=== PATIENT | female | born 1955 | race Caucasian/White ===

== ENCOUNTER → 2017-06-19 12:21 | Outpatient (CLI) | payer OTHER, SELFPAY ==
[2017-06-19 14:24] LABS: ALB/GLOB Ratio 0.7 RATIO (0.9-2.4); AST(SGOT) 15 U/L (15-37); Alanine Aminotransfer ALT/SGPT 16 U/L (13-56); Albumin, Serum 3.3 g/dL (3.2-5.0); Alkaline Phosphatase 109 U/L (45-117); Anion Gap 7 (5-15); BUN 15 mg/dL (7-18); BUN/Creat Ratio 15.7 RATIO (10-20); Calcium,Total 9.5 mg/dL (8.5-10.1); Chloride 102 mmol/L (98-107); Cholesterol 152 mg/dL (200); Creatinine, Serum 0.95 mg/dL (0.55-1.02); EST Glomerular Filtration Rate 63 mL/min (>60); Est Glom Filt Rate - Afr Amer 77 mL/min (>60); Globulin 4.6 g/dL (2.2-4.2); Glucose 83 mg/dL (74-106); Hemoglobin A1c 6.1 % (4.2-6.3); High Density Lipoprotein 28 mg/dL; Potassium 3.6 mmol/L (3.5-5.1); Protein, Total 7.9 g/dL (6.4-8.2); Sodium Level 137 mmol/L (136-145); Triglycerides 138 mg/dL; Very Low Density Lipoprotein 28 mg/dL (5-40)
== END ==
PROVIDERS: Family Provider Family Medicine; PCP Family Medicine; Visit Provider Family Medicine
DX: E11.9 Type 2 diabetes mellitus without complications (principal); E78.00 Pure hypercholesterolemia, unspecified; I10 Essential (primary) hypertension
CPT/HCPCS: 36415; 80053; 80061; 83036

== ENCOUNTER → 2017-07-02 06:08 | Outpatient (CLI) | payer OTHER, SELFPAY ==
--- NOTE | 2017-07-02 08:52 | STRESSREP ---
Stress Test Report Date: 07/02/2017 Procedure: Pharmacologic stress nuclear imaging study Indications: Chest pain; shortness of breath; CAD; CABG Consent: Per the patient Procedure: The patient underwent pharmacologic (Regadenoson) evaluation with a peak heart rate of 90 beats per minute (56 predicted maximal heart rate) and a peak blood pressure of 124/76 mmHg. The baseline ECG demonstrated normal sinus rhythm; poor R-wave progression. The peak pharmacologic ECG demonstrated no obvious ECG changes. There were no cardiac dysrhythmias pretest, during pharmacologic infusion, or recovery. There was no complaint of chest discomfort during pharmacologic infusion or recovery. The examination was discontinued secondary to completion of protocol. Impression: 1. Pharmacologic (Regadenoson) evaluation 2. Peak pharmacologic ECG with no obvious ECG changes. 3. There were no cardiac dysrhythmias pretest, during pharmacologic infusion, or recovery 4. Nuclear images pending Myocardial perfusion imaging study: Technique: The patient was injected with 14.6 millicuries of technetium 99m Cardiolite and subsequently rest SPECT Cardiolite nuclear imaging was obtained in the horizontal long, vertical long, and short axis views. The patient underwent pharmacologic (Regadenoson) evaluation with a peak heart rate of 90 beats per minute (56 % percent predicted maximal heart rate) and a peak blood pressure of 124/76 mmHg. The patient was injected with 45 millicuries of technetium 99m Cardiolite and subsequently stress SPECT Cardiolite nuclear imaging was obtained in the horizontal long, vertical long, and short axis views. A gated Cardiolite study at peak stress was obtained. Interpretation: Rest and stress SPECT Cardiolite nuclear imaging status post realignment, normalization, and attenuation correction demonstrate an area of diminished myocardial perfusion/tracer uptake in portions of the basal lateral segments which status post stress appears to be more prominent extending through the mid lateral segments. There is end systolic thickening and brightening. The gated Cardiolite study demonstrates myocardial thickening and inward wall motion. The reported LVEF is 50 %. Impression: 1. Test and stress SPECT Cardiolite nuclear imaging demonstrating myocardial perfusion changes appearing compatible with an area of previous myocardial injury/infarction involving the basal lateral segments with post stress myocardial perfusion changes being compatible with an area of stress-induced myocardial ischemia involving the mid lateral segments. 2. The gated Cardiolite study reports an LVEF of 50 %. This note was generated with Pathogenet[employer]ation software. It may contain incorrect words, spelling, and punctuation that were not noted in checking the note before signing.
== END ==
PROVIDERS: Family Provider Family Medicine; PCP Family Medicine; Visit Provider Family Medicine
DX: R07.9 Chest pain, unspecified (principal)
CPT/HCPCS: 78452; 93017; A9500; A4216; J2785

== ENCOUNTER → 2017-07-04 08:58 | Outpatient (CLI) | payer OTHER, SELFPAY ==
--- NOTE | 2017-07-04 09:11 | RAD_ITS ---
STUDY: X-RAY CHEST REASON FOR EXAM: Female, 61 years old. Open heart surgery. Chest pain. Preheart catheter. No chest complaints today. TECHNIQUE: PA and lateral views. COMPARISON: 06/22/2013. FINDINGS: Median sternotomy is unchanged. The lungs are clear and expanded. There is no demonstrated pleural abnormality. Normal size heart. Normal mediastinum and phu. Normal visualized pulmonary arteries. Normal visualized aortic arch and descending thoracic aorta. Normal visualized thoracic spine. Normal visualized ribs, clavicles, and shoulders. There is no demonstrated abnormality of the visualized soft tissue structures of the upper abdomen. RAD/Chest PA and Lateral IMPRESSION: 1. No acute cardiopulmonary pathology. 2. No interval changes when compared to 06/22/2013. Electronically Signed: Valdez Andersen MD at 9:43 EDT , Service support ,
[2017-07-04 09:44] LABS: Absolute Lymphocyte Count 2.33 X10^3/ul (0.83-4.51); Absolute Neutrophil Count 6.9 X10^3/uL (2.0-7.7); Eosinophil# 0.25 X10^3/uL; Eosinophils% 2.4 % (0-5); Hematocrit 54.1 % (37-47); Hemoglobin 17.7 g/dl (12.0-15.0); Lymphocyte # 2.33 X10^3/ul (4.0); Lymphocyte % 22.6 % (19-41); Mean Corp Hgb Conc 32.7 g/gl (32-36); Mean Corpuscular Volume 85.5 fL (81-99); Mean Platelet Vol. 11.4 fl (6.2-12.0); Monocyte# 0.75 X10^3/uL; Monocyte% 7.3 % (0-10); Neutrophil # 6.85 X10^3/uL (2.7-7.7); Neutrophil % 66.4 % (47-70); Platelet Count 238 K/mm3 (150-450); RBC Distribution Width CV 16.4 % (11.6-14.6); RBC Distribution Width SD 51.2 fl (35.1-43.9); Red Blood Count 6.33 M/mm3 (4.2-5.4); White Blood Count 10.3 K/mm3 (4.4-11.0)
[2017-07-04 09:45] LABS: POSITIVE COUNT NO; POSITIVE DIFFERENTIAL NO; POSITIVE MORPHOLOGY NO
[2017-07-04 09:57] LABS: International Normalized Ratio 1.1; Partial Thromboplast Time 29.1 Seconds (24.1-36.2); Prothrombin Time (Protime)PT. 13.9 SECONDS (11.7-14.9)
[2017-07-04 10:09] LABS: Anion Gap 6 (5-15); BUN 16 mg/dL (7-18); BUN/Creat Ratio 14.3 RATIO (10-20); Calcium,Total 9.7 mg/dL (8.5-10.1); Chloride 103 mmol/L (98-107); Creatinine, Serum 1.12 mg/dL (0.55-1.02); EST Glomerular Filtration Rate 53 mL/min (>60); Est Glom Filt Rate - Afr Amer 64 mL/min (>60); Glucose 105 mg/dL (74-106); Potassium 4.1 mmol/L (3.5-5.1); Sodium Level 135 mmol/L (136-145)
== END ==
PROVIDERS: Family Provider Family Medicine; PCP Family Medicine; Visit Provider Internal Medicine Cardiovascular Disease
DX: I25.10 Atherosclerotic heart disease of native coronary artery without angina pectoris (principal); Z95.1 Presence of aortocoronary bypass graft
CPT/HCPCS: 36415; 71046; 80048; 85025; 85610; 85730

== ENCOUNTER → 2017-07-08 06:45 | Outpatient (CLI) | payer OTHER, SELFPAY ==
[2017-07-07 14:27] VITALS: BMI 52.1
--- NOTE | 2017-07-08 06:50 | ECHOCS_ITS ---
Reason For Study: CAD Procedure This was a 2D Doppler, Color Flow transthoracic echocardiogram. The exam was of poor technical quality due to body habitus. The study was technically difficult. Contrast injection was performed. Exam performed in department. Left Ventricle Based upon the 2D echocardiographic and contrast enhanced images obtained there appears to be grossly normal left ventricular size, wall motion, and sytolic function. The estimated ejection fraction is 55 %. Unable to assess diastolic dysfunction due to arrhythmia. Right Ventricle Normal RV size. Normal systolic function. Atria The left atrium is mildly enlarged. Normal right atrium. No doppler evidence for ASD. Mitral Valve There is no mitral annular calcification. Normal mitral valve. Trivial mitral valve insufficiency. Tricuspid Valve Normal tricuspid valve. Mild tricuspid valve insufficiency. Unable to estimate RV systolic pressure/pulmonary artery pressure due to technically difficult study. Aortic Valve Trisinus/trileaflet aortic valve. Normal aortic valve. Pulmonic Valve The pulmonic valve is not well visualized. Great Vessels Normal sized aortic root. Pericardium/Pleural No pericardial effusion. Medication Diluted definity 4ml given slow IV push to enhance endocardial definition. MMode/2D Measurements & Calculations LVIDd: 4.9 cm IVSd: 1.1 cm Ao root diam: 2.6 cm LVIDs: 3.3 cm LVPWd: 0.85 cm LA dimension: 4.3 cm FS: 33.1 % Doppler Measurements & Calculations MV E max dheeraj: 83.5 cm/sec Lat Peak E' Dheeraj: 5.7 cm/sec Med Peak E' Dheeraj: 5.6 cm/sec MV A max dheeraj: 86.3 cm/sec E/E' lat: 14.5 E/E' med: 15.0 MV E/A: 0.97 Ao V2 max: 157.9 cm/sec LV V1 max: 115.7 cm/sec PA V2 max: 95.3 cm/sec Ao max P.0 mmHg LV V1 max P.4 mmHg Interpretation Summary The study was technically difficult. Contrast injection was performed. Based upon the 2D echocardiographic and contrast enhanced images obtained there appears to be grossly normal left ventricular size, wall motion, and sytolic function. The estimated ejection fraction is 55 %. The left atrium is mildly enlarged. Trivial mitral valve insufficiency. Mild tricuspid valve insufficiency. Unable to estimate RV systolic pressure/pulmonary artery pressure due to technically difficult study. Unable to assess diastolic dysfunction due to arrhythmia. Ordering Physician: José Menendez Referring Physician: Wai Mortensen M.D. Performed By: Sharon Elder RDCS
--- NOTE | 2017-07-08 11:11 | CRPHASE1 ---
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 Phase II Referral:: [facility] Phase I Charge:: Level I - Education Risk Factors/Lifestyle Smoking Status: Current every day smoker Second-Hand Smoke:: Yes Packs Smoked per Day: 1 Hx Hypertension: Yes - on meds Hx Diabetes Mellitus Type 2: No - but was treated in 2011 following CABG for 3 months Hx Dyslipidemia: Yes Hx Obesity: Yes Height: 1.57 m Weight:: 129.274 kg BMI: 52.1 Post-Menopausal: Yes Stress: Home/Family - Her parents recently with in 2 months and now this episode with her heart ETOH: No Caffeine: Yes Substance Abuse: No Family History: Family History (Last Reviewed 07/03/17 @ 15:04 by Marjan Mitchell) Father CAD (coronary artery disease) Cancer Mother CVA (cerebral vascular accident) Hypertension Family History: High Cholesterol, Heart Disease, Hypertension, Pulmonary Disease Past Cardiac Illness: Coronary Artery Disease, Myocardial Infarction, Coronary Artery Bypass Graft Phase I Education Given On:: [place], Nutrition, Antiplatelet medication, Smoking cessation Issues Affecting Care:: None Knowledge of Condition:: Yes Learning Preferences: Verbal Hospital Course Pain Description: Burning - but related to Acid reflex Cardiac Cath Date:: 07/08/17 Grafts:: 2012 Medical/Surgical History IN:: Yes - do not when Angina:: Yes - but related to acid reflex Pulmonary:: Yes COPD:: Yes ALEXX:: No Diabetes:: No Diabetes Type I:: No Diabetes Type II:: No - but was treated for 3 months in 2011 Hypertension:: Yes - on meds Dyslipidemia:: Yes Arrhythmias:: No Arthritis:: No GI:: Yes - acid reflex GERD:: Yes Cancer:: Yes Renal:: No Thyroid:: No Depression:: Yes - family deaths CABG: Yes PTCA:: No ICD:: No Pacemaker:: No Orthopedic:: No Discharge/Home/Social Eval Discharge Disposition: Home Marital Status: Patient Lives With::
[2017-07-08 11:20] VITALS: BMI 52.1
--- NOTE | 2017-07-08 11:20 | CRPHASE1_ITS ---
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 Phase II Referral:: [facility] Phase I Charge:: Level I - Education Risk Factors/Lifestyle Smoking Status: Current every day smoker Second-Hand Smoke:: Yes Packs Smoked per Day: 1 Hx Hypertension: Yes - on meds Hx Diabetes Mellitus Type 2: No - but was treated in 2011 following CABG for 3 months Hx Dyslipidemia: Yes Hx Obesity: Yes Height: 1.57 m Weight:: 129.274 kg BMI: 52.1 Post-Menopausal: Yes Stress: Home/Family - Her parents recently with in 2 months and now this episode with her heart ETOH: No Caffeine: Yes Substance Abuse: No Family History: Family History (Last Reviewed 07/03/17 @ 15:04 by Marjan Mitchell) Father CAD (coronary artery disease) Cancer Mother CVA (cerebral vascular accident) Hypertension Family History: High Cholesterol, Heart Disease, Hypertension, Pulmonary Disease Past Cardiac Illness: Coronary Artery Disease, Myocardial Infarction, Coronary Artery Bypass Graft Phase I Education Given On:: [place], Nutrition, Antiplatelet medication, Smoking cessation Issues Affecting Care:: None Knowledge of Condition:: Yes Learning Preferences: Verbal Hospital Course Pain Description: Burning - but related to Acid reflex Cardiac Cath Date:: 07/08/17 Grafts:: 2012 Medical/Surgical History [place]:: Yes - do not when Angina:: Yes - but related to acid reflex Pulmonary:: Yes COPD:: Yes ALEXX:: No Diabetes:: No Diabetes Type I:: No Diabetes Type II:: No - but was treated for 3 months in 2011 Hypertension:: Yes - on meds Dyslipidemia:: Yes Arrhythmias:: No Arthritis:: No GI:: Yes - acid reflex GERD:: Yes Cancer:: Yes Renal:: No Thyroid:: No Depression:: Yes - family deaths CABG: Yes PTCA:: No ICD:: No Pacemaker:: No Orthopedic:: No Discharge/Home/Social Eval Discharge Disposition: Home Marital Status: Patient Lives With::
--- NOTE | 2017-07-08 11:21 | CRPH1.INSTRU ---
General Education CAD and cardiac anatomy and function:: Patient communicates acknowledgment, Family communicates acknowledgment Explanation of diagnoses and procedures:: Patient communicates acknowledgment, Family communicates acknowledgment Sign/Symptoms of [place]:: Patient communicates acknowledgment, Family communicates acknowledgment Antiplatelet therapy: Patient communicates acknowledgment, Family communicates acknowledgment Proper use of NTG-SL: Patient communicates acknowledgment, Family communicates acknowledgment Emergency procedures and activation of EMS: Patient communicates acknowledgment, Family communicates acknowledgment Compliance of all prescribed medications: Patient communicates acknowledgment, Family communicates acknowledgment Smoking Patient Nicotine/Smoking Risk Factors Are:: Cigarettes, Second-hand smoke Recommendations Include:: Smoking cessation strategies/Smoking packet, Second-hand smoke recommendation Nicotine/Smoking Response Code:: Patient communicates acknowledgment, Family communicates acknowledgment - talked to her and about smoking Dyslipidemia Recommendations Include:: Lipid profile provided Dyslipidemia Response Code:: Patient communicates acknowledgment, Family communicates acknowledgment Overweight/Obesity Patient Overweight/Obesity Risk Factors Are:: Overweight = 26-29 Recommendations Include:: Weight loss of 5-10%, Reduced calorie diet Overweight/Obesity:: Patient communicates acknowledgment, Family communicates acknowledgment Hypertension Recommendations Include:: Maintain BP <130/85, BP <130/80 if diabetic, DASH dietary guidelines, Decrease/maintain normal body weight, Moderation of ETOH Hypertension:: Patient communicates acknowledgment, Family communicates acknowledgment Heart Disease Patient Heart Disease Risk Factors Are:: Family history of heart disease < 65 years old, Previous cardiac event Recommendations Include:: Educated family members of their risk Heart Disease Response Code:: Patient communicates acknowledgment Diabetes Patient Diabetes Risk Factors Are:: Post-op hyperglycemia Diabetes:: Patient communicates acknowledgment, Family communicates acknowledgment Metabolic Syndrome Patient Metabolic Syndrome Risk Factors Are [3 of 5]:: Fasting blood sugar > 100 mg/dL, Waist circumference > 35 [female] or 40 [male], High triglyceride >150, Hypertension Metabolic Syndrome Response Code:: Patient communicates acknowledgment, Family communicates acknowledgment Sedentary Patient Sedentary Risk Factors Are:: Lack of regular exercise Recommendations Include:: Aerobic exercise 5-7 times/week for 20-30 minutes continuously, Benefits of regular exercise, Discussed home walking program Sedentary Response Code:: Patient communicates acknowledgment, Family communicates acknowledgment Stress Recommendations Include:: Identification of stressors, and assessment of coping skills, Stress management techniques - Also told her about ECP Stress Response Code:: Patient communicates acknowledgment, Family communicates acknowledgment
--- NOTE | 2017-07-08 11:24 | CRPH1.INST_ITS ---
General Education CAD and cardiac anatomy and function:: Patient communicates acknowledgment, Family communicates acknowledgment Explanation of diagnoses and procedures:: Patient communicates acknowledgment, Family communicates acknowledgment Sign/Symptoms of [place]:: Patient communicates acknowledgment, Family communicates acknowledgment Antiplatelet therapy: Patient communicates acknowledgment, Family communicates acknowledgment Proper use of NTG-SL: Patient communicates acknowledgment, Family communicates acknowledgment Emergency procedures and activation of EMS: Patient communicates acknowledgment , Family communicates acknowledgment Compliance of all prescribed medications: Patient communicates acknowledgment, Family communicates acknowledgment Smoking Patient Nicotine/Smoking Risk Factors Are:: Cigarettes, Second-hand smoke Recommendations Include:: Smoking cessation strategies/Smoking packet, Second- hand smoke recommendation Nicotine/Smoking Response Code:: Patient communicates acknowledgment, Family communicates acknowledgment - talked to her and about smoking Dyslipidemia Recommendations Include:: Lipid profile provided Dyslipidemia Response Code:: Patient communicates acknowledgment, Family communicates acknowledgment Overweight/Obesity Patient Overweight/Obesity Risk Factors Are:: Overweight = 26-29 Recommendations Include:: Weight loss of 5-10%, Reduced calorie diet Overweight/Obesity:: Patient communicates acknowledgment, Family communicates acknowledgment Hypertension Recommendations Include:: Maintain BP <130/85, BP <130/80 if diabetic, DASH dietary guidelines, Decrease/maintain normal body weight, Moderation of ETOH Hypertension:: Patient communicates acknowledgment, Family communicates acknowledgment Heart Disease Patient Heart Disease Risk Factors Are:: Family history of heart disease < 65 years old, Previous cardiac event Recommendations Include:: Educated family members of their risk Heart Disease Response Code:: Patient communicates acknowledgment Diabetes Patient Diabetes Risk Factors Are:: Post-op hyperglycemia Diabetes:: Patient communicates acknowledgment, Family communicates acknowledgment Metabolic Syndrome Patient Metabolic Syndrome Risk Factors Are [3 of 5]:: Fasting blood sugar > 100 mg/dL, Waist circumference > 35 [female] or 40 [male], High triglyceride > 150, Hypertension Metabolic Syndrome Response Code:: Patient communicates acknowledgment, Family communicates acknowledgment Sedentary Patient Sedentary Risk Factors Are:: Lack of regular exercise Recommendations Include:: Aerobic exercise 5-7 times/week for 20-30 minutes continuously, Benefits of regular exercise, Discussed home walking program Sedentary Response Code:: Patient communicates acknowledgment, Family communicates acknowledgment Stress Recommendations Include:: Identification of stressors, and assessment of coping skills, Stress management techniques - Also told her about ECP Stress Response Code:: Patient communicates acknowledgment, Family communicates acknowledgment
--- NOTE | 2017-07-08 18:45 | CL.D_ITS ---
Patient Name: OLENA HEALY V Study Date: 07/08/2017 Performing: José Menendez MD Ht: 62 inches 157 cm : 1955 Wt: 284.8 lbs 129 kg Age: 61 Gender: female BSA: 2.22 PROCEDURE(S) PERFORMED [id number]/LV/CABG CLINICAL PROFILE AND INDICATIONS Indications: New Onset Angina <= 2 months, Suspected CAD Heart Failure: None Stress/Imaging Stress Test w/SPECT MPI: Yes Result: PositiveStress Test with SPECT MPI: Positive Angina Classification Anginal Classification w/in 2 Weeks: CCS III CAD Presentations: Stable angina. CONCLUSIONS Elevated Left Ventricular End Diastolic Pressure Segmented LV systolic dysfunction- Mild LVEF: by LV gram 55 % [place] Multivessel CAD DENNIS to LAD: patent SVT to DX1: patent RECOMMENDATIONS Risk factor modification Medical therapy [facility] evaluation for chronic total occlusion revascularization options DESCRIPTION OF PROCEDURE The patient arrived to the procedure lab. The risks and benefits of the procedure as well as a full d escription of our services here and current unavailability of surgical backup were fully explained to the patient and/or their significant other prior to the catheterization. The Timeout was completed, verifying the correct patient and procedure. The patient's procedural site was prepped and draped in the usual fashion. Local anesthetic was given subcutaneously to right groin region with Lidocaine 2%. Using a modified Seldinger technique, arterial access was obtained via the right femoral artery, a 4 Fr sheath was inserted Left Coronary Artery selective angiography was performed in multiple views us ing a 4 Fr. JL5 catheter. Right Coronary Artery selective angiography was then performed in multiple views using a 4 Fr. 3DRC catheter. Saphenous Vein graft to the DIAG 1 selective angiography was perfo rmed in multiple views using a 4 Fr. 3DRC catheter. Left internal mammary artery graft to the LAD jeet ective angiography was performed in multiple views using a 4 Fr. JR4 catheter. Left Ventriculography was performed in CEDILLO projection using a 4 Fr. Pigtail catheter. LV to AO pullback pressures were then recorded.The arterial sheath was pulled and manual compression applied until hemostasis is achieved. CORONARY ANGIOGRAPHY DOMINANCE: Right Dominant LEFT HEART ASSESSMENT Left Ventricular Ejection Fraction: by LV Gram 55 % Inferior Basal Hypokinesis - Severe Elevated Left Ventricular End Diastolic Pressure LVEDP: 15 mmHg LEFT MAIN: Mild luminal irregularities LEFT ANTERIOR DECENDING ARTERY: PROX LAD: Eccentric: 25 % Stenosis MID LAD: Eccentric: 85 % Stenosis, Fills from the DENNIS graft DIAGONAL 1: Proximal - 95 % Stenosis, Mid - Fills from the SVG graft CIRCUMFLEX ARTERY: PROX CIRC: Mild luminal irregularities MID CIRC: is occluded DISTAL CIRC: Fills partially from Left to Left and Right to Left Collateral Flow RIGHT CORONARY ARTERY: PROX RCA: Mild luminal irregularities MID RCA: Eccentric: 50 % Stenosis DISTAL RCA: is occluded RT PDA: Proximal - Fills partially from Right to Right Collateral Flow GRAFTS: DENNIS graft to the Mid LAD is patent with no angiographically significant disease distal to the graft attachment Saphenous Vein graft to the 1st Diagonal is patent with no angiographically significant disease dista l to the graft attachment VALVE FINDINGS: Normal Aortic Valve function Normal Mitral Valve function AORTIC ROOT: Angiographically normal COMPLICATIONS No Complications PROCEDURE MEDICATIONS Versed 1 mg IV Versed 1 mg IV Oxygen: 2 L/min via nasal cannula Oxygen: 3 L/min via nasal cannula SUMMARY OF HEMODYNAMIC DATA Time AIR REST ECG 08:10:20 AO 148/82 (111) SA 09:22:00 LV 159/15, 33 09:42:42 LV 160/11, 28 09:43:03 LV 126/14, 29 09:49:39 LVp 121/13, 28 09:49:44 AOp 106/53 (73) 09:49:49 Signed By José Menendez MD On 07/08/2017 18:44:20 José Menendez MD
== END ==
PROVIDERS: Family Provider Family Medicine; PCP Family Medicine; Visit Provider Internal Medicine Cardiovascular Disease
DX: I25.10 Atherosclerotic heart disease of native coronary artery without angina pectoris (principal); R94.39 Abnormal result of other cardiovascular function study; E11.9 Type 2 diabetes mellitus without complications; I10 Essential (primary) hypertension; E78.5 Hyperlipidemia, unspecified; E66.01 Morbid (severe) obesity due to excess calories; Z68.43 Body mass index [BMI] 50.0-59.9, adult; I25.2 Old myocardial infarction; F41.9 Anxiety disorder, unspecified; K57.90 Diverticulosis of intestine, part unspecified, without perforation or abscess without bleeding; J44.9 Chronic obstructive pulmonary disease, unspecified; Z86.718 Personal history of other venous thrombosis and embolism; Z85.42 Personal history of malignant neoplasm of other parts of uterus; Z98.51 Tubal ligation status; Z90.710 Acquired absence of both cervix and uterus; Z95.1 Presence of aortocoronary bypass graft; F17.200 Nicotine dependence, unspecified, uncomplicated; Z79.82 Long term (current) use of aspirin; Z79.899 Other long term (current) drug therapy
CPT/HCPCS: 93306; 93459; 99152; 99153; J7040; Q9957; A4216; C1769; C1894; C8929; Q9967

== ENCOUNTER 2018-07-09 13:45 | Outpatient (RCR) | payer OTHER, SELFPAY ==
[2017-07-08 11:20] VITALS: BMI 52.1
[2018-07-02 12:55] VITALS: BP 156/86; PULSE 72; RESP 16; TEMP 35.7
--- NOTE | 2018-07-02 17:44 | PCM.WC.HP ---
(1) Wound of left breast Status: Chronic Current Visit: Yes Qualifiers: Encounter type: initial encounter Qualified Code(s): S21.002A - Unspecified open wound of left breast, initial encounter Code(s): S21.002A - Unspecified open wound of left breast, initial encounter (2) Open wound of right lower quadrant of abdominal wall without penetration into peritoneal cavity Status: Chronic Current Visit: Yes Qualifiers: Encounter type: initial encounter Qualified Code(s): S31.103A - Unspecified open wound of abdominal wall, right lower quadrant without penetration into peritoneal cavity, initial encounter Code(s): S31.103A - Unspecified open wound of abdominal wall, right lower quadrant without penetration into peritoneal cavity, initial encounter (3) Traumatic hematoma of abdominal wall Status: Chronic Current Visit: Yes Qualifiers: Encounter type: initial encounter Qualified Code(s): S30.1XXA - Contusion of abdominal wall, initial encounter Code(s): S30.1XXA - Contusion of abdominal wall, initial encounter (4) Traumatic hematoma of female breast Status: Chronic Current Visit: Yes Qualifiers: Encounter type: initial encounter Laterality: left Qualified Code(s): S20.02XA - Contusion of left breast, initial encounter Code(s): S20.00XA - Contusion of breast, unspecified breast, initial encounter (5) Type 2 diabetes mellitus Status: Chronic Current Visit: Yes Qualifiers: 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 insulin use: without chcf use Diabetes mellitus complication status: with unspecified complications Qualified Code(s): E11.8 - Type 2 diabetes mellitus with unspecified complications Code(s): E11.9 - Type 2 diabetes mellitus without complications (6) Hyperlipidemia Status: Chronic Current Visit: Yes Qualifiers: Hyperlipidemia type: unspecified Qualified Code(s): E78.5 - Hyperlipidemia, unspecified Code(s): E78.5 - Hyperlipidemia, unspecified (7) Tobacco use disorder Status: Chronic Current Visit: Yes Code(s): F17.200 - Nicotine dependence, unspecified, uncomplicated (8) Morbid obesity Status: Chronic Current Visit: Yes Code(s): E66.01 - Morbid (severe) obesity due to excess calories History of Present Illness Date of Service: 07/02/18 Chief Complaint: open wounds of left breast and right lower abdomen History of Wound: Keturah is a 62 yo woman who presents to the wound center for evaluation and traetment of nonhealing wounds to her left breast and right lower abdomen. She is referred by Dr. Mortensen, her PCP. She was jumped on by her dog 4-6 weeks ago and developed hematomas of her breasts and abdomen and back. The areas developed into open wounds of her left medial breast and right lower abdomen approx. 2 weeks ago. She is on plavix and aspirin for her CAD. She has been using maxi pads to the areas and antibiotic ointment. She completed doxycycline on Thursday for treatment for possible infection. She has moderate to heavy exudate from the wounds and they are painful. She denies fever or chills. Past Medical History Past Medical History: Chronic Problems (Last Reviewed 07/03/17 @ 15:04 by Marjan Mitchell) Wound of left breast (Chronic) Open wound of right lower quadrant of abdominal wall without penetration into peritoneal cavity (Chronic) Traumatic hematoma of abdominal wall (Chronic) Traumatic hematoma of female breast (Chronic) Type 2 diabetes mellitus (Chronic) Aortocoronary bypass status (Chronic) CABG x2- DENNIS to LAd, SVG to Diagonal of the LAD 10/31/11 Atherosclerotic heart disease of [place] coronary artery without angina pectoris (Chronic) CABG x2- DENNIS to LAD, SVG to Diagonal of the LAD 10/31/11 Hypertension (Chronic) Hyperlipidemia (Chronic) Tobacco use disorder (Chronic) Morbid obesity (Chronic) Surgical History: coronary bypass surgery, hysterectomy, tonsillectomy Allergies/Adverse Reactions: Allergies cephalexin [From Keflex] Allergy (Severe, Verified 07/03/17 14:59) Rash levofloxacin [From Levaquin] Allergy (Severe, Verified 07/03/17 14:59) Rash niacin Allergy (Severe, Verified 07/03/17 14:59) Rash Penicillins Allergy (Severe, Verified 07/03/17 14:59) Anaphylaxis Sulfa (Sulfonamide Antibiotics) Allergy (Severe, Verified 07/03/17 14:59) Rash citalopram [From Celexa] Adverse Reaction (Severe, Verified 07/03/17 14:59) Rash Estrogens Adverse Reaction (Severe, Verified 07/03/17 14:59) blood clots rosuvastatin [From Crestor] Adverse Reaction (Severe, Verified 07/03/17 14:59) myalgias oral contraceptives Adverse Reaction (Severe, Uncoded 07/03/17 14:59) Unknown Home Medications: Ambulatory Orders Medication Instructions Recorded aspirin 81 mg tablet,delayed 81 mg PO QDAY 07/02/17 release losartan 100 1 tab PO QDAY 07/02/17 mg-hydrochlorothiazide 25 mg tablet metoprolol tartrate 25 mg tablet 25 mg PO BID 07/02/17 sertraline 100 mg tablet 100 mg PO QDAY 07/02/17 simvastatin 20 mg tablet 20 mg PO QPM 07/02/17 lorazepam 0.5 mg tablet 0.25 mg PO Q6H PRN tab 07/03/17 isosorbide mononitrate ER 30 mg 30 mg PO QAM #30 tab 07/08/17 tablet,extended release 24 hr clopidogrel 75 mg tablet 75 mg PO QDAY #90 tab 11/23/17 - Family History Maternal Family History: Family History (Last Reviewed 07/03/17 @ 15:04 by Marjan Mitchell) Father CAD (coronary artery disease) Cancer Mother CVA (cerebral vascular accident) Hypertension Lives: Spouse/ Significant Other Smoking Status: Current every day smoker Tobacco Use: Cigarettes Alcohol: None Drugs: None Review of Systems Constitutional: Denies: Chills, Fever, Weight Change Eyes: Denies: Pain, Vision Change HEENT: Denies: Difficulty Hearing, Difficulty Swallowing, Sinus Congestion Cardiovascular: Denies: Chest Pain, Palpitations Respiratory: Denies: Cough, Shortness of Breath Gastrointestinal: Denies: Diarrhea, Nausea, Vomiting Genitourinary: Denies: Dysuria, Hematuria Skin: Reports: Wounds Endocrine: Denies: Heat/ Cold Intolerance, Polydipsia, Polyuria Hematologic/ Lymphatic: Reports: Easy Bruising, Easy Bleeding - Physical Exam Vital Signs Temp Pulse Resp BP 96.2 F L 72 16 156/86 H 07/02/18 12:55 07/02/18 12:55 07/02/18 12:55 07/02/18 12:55 General: Alert, Oriented x3, Cooperative, No apparent distress HEENT: Atraumatic, Normocephalic Oral: Moist Mucosa Neck: Supple Lungs: Clear to auscultation Cardiovascular: Regular rate, Regular Rhythm Abdomen: Obese, Guarding Extremities: Edema Skin: Ulcer/ Wound Wound Measurements and Assessment WC - Nurse 1 - General Ulcer Measurement Start: 07/02/18 12:55 Freq: Status: Active Protocol: Activity Type Activity Date Activity User E-Sign Co-Sign Detail Recorded Client Recorded Date Recorded By Document 07/02/18 12:55 MW [id number] 07/02/18 13:07 MW 07/02/18 12:55 Wound Center Nurse 1 [Ulcer Assessment] #2 right lower abd -Combined with other wound No -Current Size (cm) - Length 4.0 -Current Size (cm) - Width 4.0 -Current Size (cm) - Depth 0.1 -Total Square Cm 16.00 -Date of Last Picture (Recall this 07/02/18 field) -Photo Taken Yes -Epithelialization None Present -Tunneling No -Undermining/Tunneling No -Circular Undermining No -Exudate Amt Medium -Exudate Type Serosanguineous -Wound Margin Flat & Intact -Granulation Amt None Present (0 %) -Granulation Quality N/A -Slough/Fibrin Yes -Necrosis Amt Large (67-100%) -Necrotic Tissue Type Adherent Slough -Structure Exposed N/A -Texture (Gabriela-wound Skin Appearance) Assessed Localized Edema -Moisture (Gabriela-wound Skin Appearance No Abnormality ) Assessed -Color (Gabriela-wound Skin Appearance) Assessed Ecchymosis -Temperature (Gabirela-wound Skin No Abnormality Appearance) (Pt Warm) -Tenderness on Palpation (Gabriela-wound Yes Skin Appearance) -Ulcer Cleansing Rinsed/ Irrigated with Saline -Foul Odor after Cleansing No -Anesthetic Used 4% Lidocaine Solution 5% Lidocaine Gel #1 left breast -Combined with other wound No -Current Size (cm) - Length 3.0 -Current Size (cm) - Width 4.0 -Current Size (cm) - Depth 0.1 -Total Square Cm 12.00 -Date of Last Picture (Recall this 07/02/18 field) -Photo Taken Yes -Epithelialization None Present -Tunneling No -Undermining/Tunneling No -Circular Undermining No -Exudate Amt Medium -Exudate Type Serosanguineous -Wound Margin Flat & Intact -Granulation Amt None Present (0 %) -Granulation Quality N/A -Slough/Fibrin Yes -Necrosis Amt Large (67-100%) -Necrotic Tissue Type Adherent Slough -Structure Exposed N/A -Texture (Gabriela-wound Skin Appearance) Assessed Localized Edema -Moisture (Gabriela-wound Skin Appearance No Abnormality ) Assessed -Color (Gabriela-wound Skin Appearance) Assessed Ecchymosis -Temperature (Gabriela-wound Skin No Abnormality Appearance) (Pt Warm) -Tenderness on Palpation (Gabriela-wound Yes Skin Appearance) -Ulcer Cleansing Rinsed/ Irrigated with Saline -Foul Odor after Cleansing No -Anesthetic Used 4% Lidocaine Solution 5% Lidocaine Gel [Edema Assessment] -Lower Limb Edema Present No WC - Nurse 2 - General Ulcer CM Notes Start: 07/02/18 12:55 Freq: Status: Active Protocol: Activity Type Activity Date Activity User E-Sign Co-Sign Detail Recorded Client Recorded Date Recorded By Document 07/02/18 14:23 DV [id number] 07/02/18 14:33 DV 07/02/18 14:23 Wound Center Nurse 2 [Procedure/Treatment] #2 right lower abd -Time 14:33 -Correct Patient Yes -Correct Side, Site, Position Yes -Correct Procedure No -Procedure Performed No #1 left breast -Time 14:33 -Correct Patient Yes -Correct Side, Site, Position Yes -Correct Procedure No -Procedure Performed No [See Physician Procedure note for Specifics] Psych/Mental Status: Normal Affect, Appropriate Comment: left breast indurated and painful, firm to touch approx. 14 cm x 10 cm Debridement Note Post-Debridement Measurements/Treatment WC - Nurse 2 - General Ulcer CM Notes Start: 07/02/18 12:55 Freq: Status: Active Protocol: Activity Type Activity Date Activity User E-Sign Co-Sign Detail Recorded Client Recorded Date Recorded By Document 07/02/18 14:23 DV [id number] 07/02/18 14:33 DV 07/02/18 14:23 Wound Center Nurse 2 #2 right lower abd -Time 14:33 -Correct Patient Yes -Correct Side, Site, Position Yes -Correct Procedure No -Procedure Performed No #1 left breast -Time 14:33 -Correct Patient Yes -Correct Side, Site, Position Yes -Correct Procedure No -Procedure Performed No Wound debrided: left breast No debridement was completed today - Additional Wound Wound debrided: right lower abdomen Laterality: Right Operative Diagnosis: No debridement performed Assessment/Plan Active Problems (Last Reviewed 07/03/17 @ 15:04 by Marjan Mitchell) Wound of left breast (Chronic) Open wound of right lower quadrant of abdominal wall without penetration into peritoneal cavity (Chronic) Traumatic hematoma of abdominal wall (Chronic) Traumatic hematoma of female breast (Chronic) Type 2 diabetes mellitus (Chronic) Hyperlipidemia (Chronic) Tobacco use disorder (Chronic) Morbid obesity (Chronic) Assessment: traumatic wounds of left breast and right lower abdomen due to hematomas Plan: Keturah's wounds were evaluated today and will have her start using Santyl daily to her wounds as she is apprehensive of debridement surgically. Encouraged her to offload the areas and increase protein intake. Will also have her get a CT of her chest done to assess the hematoma for possible abcess. Will have her follow up in 1 week.
--- NOTE | 2018-07-02 17:50 | HP.PCM_ITS ---
(1) Wound of left breast Status: Chronic Current Visit: Yes Qualifiers: Encounter type: initial encounter Qualified Code(s): S21.002A - Unspecified open wound of left breast, initial encounter Code(s): S21.002A - Unspecified open wound of left breast, initial encounter (2) Open wound of right lower quadrant of abdominal wall without penetration into peritoneal cavity Status: Chronic Current Visit: Yes Qualifiers: Encounter type: initial encounter Qualified Code(s): S31.103A - Unspecified open wound of abdominal wall, right lower quadrant without penetration into peritoneal cavity, initial encounter Code(s): S31.103A - Unspecified open wound of abdominal wall, right lower quadrant without penetration into peritoneal cavity, initial encounter (3) Traumatic hematoma of abdominal wall Status: Chronic Current Visit: Yes Qualifiers: Encounter type: initial encounter Qualified Code(s): S30.1XXA - Contusion of abdominal wall, initial encounter Code(s): S30.1XXA - Contusion of abdominal wall, initial encounter (4) Traumatic hematoma of female breast Status: Chronic Current Visit: Yes Qualifiers: Encounter type: initial encounter Laterality: left Qualified Code(s): S20.02XA - Contusion of left breast, initial encounter Code(s): S20.00XA - Contusion of breast, unspecified breast, initial encounter (5) Type 2 diabetes mellitus Status: Chronic Current Visit: Yes Qualifiers: 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: without halfway use Diabetes mellitus complication status: with unspecified complications Qualified Code(s): E11.8 - Type 2 diabetes mellitus with unspecified complications Code(s): E11.9 - Type 2 diabetes mellitus without complications (6) Hyperlipidemia Status: Chronic Current Visit: Yes Qualifiers: Hyperlipidemia type: unspecified Qualified Code(s): E78.5 - Hyperlipidemia, unspecified Code(s): E78.5 - Hyperlipidemia, unspecified (7) Tobacco use disorder Status: Chronic Current Visit: Yes Code(s): F17.200 - Nicotine dependence, unspecified, uncomplicated (8) Morbid obesity Status: Chronic Current Visit: Yes Code(s): E66.01 - Morbid (severe) obesity due to excess calories History of Present Illness Date of Service: 07/02/18 Chief Complaint: open wounds of left breast and right lower abdomen History of Wound: Keturah is a 62 yo woman who presents to the wound center for evaluation and traetment of nonhealing wounds to her left breast and right lower abdomen. She is referred by Dr. Mortensen, her PCP. She was jumped on by her dog 4-6 weeks ago and developed hematomas of her breasts and abdomen and back. The areas developed into open wounds of her left medial breast and right lower abdomen approx. 2 weeks ago. She is on plavix and aspirin for her CAD. She has been using maxi pads to the areas and antibiotic ointment. She completed doxycycline on Thursday for treatment for possible infection. She has moderate to heavy exudate from the wounds and they are painful. She denies fever or chills. Past Medical History Past Medical History: Chronic Problems (Last Reviewed 07/03/17 @ 15:04 by Marjan Mitchell) Wound of left breast (Chronic) Open wound of right lower quadrant of abdominal wall without penetration into peritoneal cavity (Chronic) Traumatic hematoma of abdominal wall (Chronic) Traumatic hematoma of female breast (Chronic) Type 2 diabetes mellitus (Chronic) Aortocoronary bypass status (Chronic) CABG x2- DENNIS to LAd, SVG to Diagonal of the LAD 10/31/11 Atherosclerotic heart disease of [place] coronary artery without angina pectoris (Chronic) CABG x2- DENNIS to LAD, SVG to Diagonal of the LAD 10/31/11 Hypertension (Chronic) Hyperlipidemia (Chronic) Tobacco use disorder (Chronic) Morbid obesity (Chronic) Surgical History: coronary bypass surgery, hysterectomy, tonsillectomy Allergies/Adverse Reactions: Allergies cephalexin [From Keflex] Allergy (Severe, Verified 07/03/17 14:59) Rash levofloxacin [From Levaquin] Allergy (Severe, Verified 07/03/17 14:59) Rash niacin Allergy (Severe, Verified 07/03/17 14:59) Rash Penicillins Allergy (Severe, Verified 07/03/17 14:59) Anaphylaxis Sulfa (Sulfonamide Antibiotics) Allergy (Severe, Verified 07/03/17 14:59) Rash citalopram [From Celexa] Adverse Reaction (Severe, Verified 07/03/17 14:59) Rash Estrogens Adverse Reaction (Severe, Verified 07/03/17 14:59) blood clots rosuvastatin [From Crestor] Adverse Reaction (Severe, Verified 07/03/17 14:59) myalgias oral contraceptives Adverse Reaction (Severe, Uncoded 07/03/17 14:59) Unknown Home Medications: Ambulatory Orders Medication Instructions Recorded aspirin 81 mg tablet,delayed 81 mg PO QDAY 07/02/17 release losartan 100 1 tab PO QDAY 07/02/17 mg-hydrochlorothiazide 25 mg tablet metoprolol tartrate 25 mg tablet 25 mg PO BID 07/02/17 sertraline 100 mg tablet 100 mg PO QDAY 07/02/17 simvastatin 20 mg tablet 20 mg PO QPM 07/02/17 lorazepam 0.5 mg tablet 0.25 mg PO Q6H PRN tab 07/03/17 isosorbide mononitrate ER 30 mg 30 mg PO QAM #30 tab 07/08/17 tablet,extended release 24 hr clopidogrel 75 mg tablet 75 mg PO QDAY #90 tab 11/23/17 - Family History Maternal Family History: Family History (Last Reviewed 07/03/17 @ 15:04 by Marjan Mitchell) Father CAD (coronary artery disease) Cancer Mother CVA (cerebral vascular accident) Hypertension Lives: Spouse/ Significant Other Smoking Status: Current every day smoker Tobacco Use: Cigarettes Alcohol: None Drugs: None Review of Systems Constitutional: Denies: Chills, Fever, Weight Change Eyes: Denies: Pain, Vision Change HEENT: Denies: Difficulty Hearing, Difficulty Swallowing, Sinus Congestion Cardiovascular: Denies: Chest Pain, Palpitations Respiratory: Denies: Cough, Shortness of Breath Gastrointestinal: Denies: Diarrhea, Nausea, Vomiting Genitourinary: Denies: Dysuria, Hematuria Skin: Reports: Wounds Endocrine: Denies: Heat/ Cold Intolerance, Polydipsia, Polyuria Hematologic/ Lymphatic: Reports: Easy Bruising, Easy Bleeding - Physical Exam Vital Signs Temp Pulse Resp BP 96.2 F L 72 16 156/86 H 07/02/18 12:55 07/02/18 12:55 07/02/18 12:55 07/02/18 12:55 General: Alert, Oriented x3, Cooperative, No apparent distress HEENT: Atraumatic, Normocephalic Oral: Moist Mucosa Neck: Supple Lungs: Clear to auscultation Cardiovascular: Regular rate, Regular Rhythm Abdomen: Obese, Guarding Extremities: Edema Skin: Ulcer/ Wound Wound Measurements and Assessment WC - Nurse 1 - General Ulcer Measurement Start: 07/02/18 12:55 Freq: Status: Active Protocol: Activity Type Activity Date Activity User E-Sign Co-Sign Detail Recorded Client Recorded Date Recorded By Document 07/02/18 12:55 MW [id number] 07/02/18 13:07 MW 07/02/18 12:55 Wound Center Nurse 1 [Ulcer Assessment] #2 right lower abd -Combined with other wound No -Current Size (cm) - Length 4.0 -Current Size (cm) - Width 4.0 -Current Size (cm) - Depth 0.1 -Total Square Cm 16.00 -Date of Last Picture (Recall this 07/02/18 field) -Photo Taken Yes -Epithelialization None Present -Tunneling No -Undermining/Tunneling No -Circular Undermining No -Exudate Amt Medium -Exudate Type Serosanguineous -Wound Margin Flat & Intact -Granulation Amt None Present (0 %) -Granulation Quality N/A -Slough/Fibrin Yes -Necrosis Amt Large (67-100%) -Necrotic Tissue Type Adherent Slough -Structure Exposed N/A -Texture (Gabriela-wound Skin Appearance) Assessed Localized Edema -Moisture (Gabriela-wound Skin Appearance No Abnormality ) Assessed -Color (Gabriela-wound Skin Appearance) Assessed Ecchymosis -Temperature (Gabriela-wound Skin No Abnormality Appearance) (Pt Warm) -Tenderness on Palpation (Gabriela-wound Yes Skin Appearance) -Ulcer Cleansing Rinsed/ Irrigated with Saline -Foul Odor after Cleansing No -Anesthetic Used 4% Lidocaine Solution 5% Lidocaine Gel #1 left breast -Combined with other wound No -Current Size (cm) - Length 3.0 -Current Size (cm) - Width 4.0 -Current Size (cm) - Depth 0.1 -Total Square Cm 12.00 -Date of Last Picture (Recall this 07/02/18 field) -Photo Taken Yes -Epithelialization None Present -Tunneling No -Undermining/Tunneling No -Circular Undermining No -Exudate Amt Medium -Exudate Type Serosanguineous -Wound Margin Flat & Intact -Granulation Amt None Present (0 %) -Granulation Quality N/A -Slough/Fibrin Yes -Necrosis Amt Large (67-100%) -Necrotic Tissue Type Adherent Slough -Structure Exposed N/A -Texture (Gabriela-wound Skin Appearance) Assessed Localized Edema -Moisture (Gabriela-wound Skin Appearance No Abnormality ) Assessed -Color (Gabriela-wound Skin Appearance) Assessed Ecchymosis -Temperature (Gabriela-wound Skin No Abnormality Appearance) (Pt Warm) -Tenderness on Palpation (Gabriela-wound Yes Skin Appearance) -Ulcer Cleansing Rinsed/ Irrigated with Saline -Foul Odor after Cleansing No -Anesthetic Used 4% Lidocaine Solution 5% Lidocaine Gel [Edema Assessment] -Lower Limb Edema Present No WC - Nurse 2 - General Ulcer CM Notes Start: 07/02/18 12:55 Freq: Status: Active Protocol: Activity Type Activity Date Activity User E-Sign Co-Sign Detail Recorded Client Recorded Date Recorded By Document 07/02/18 14:23 DV [id number] 07/02/18 14:33 DV 07/02/18 14:23 Wound Center Nurse 2 [Procedure/Treatment] #2 right lower abd -Time 14:33 -Correct Patient Yes -Correct Side, Site, Position Yes -Correct Procedure No -Procedure Performed No #1 left breast -Time 14:33 -Correct Patient Yes -Correct Side, Site, Position Yes -Correct Procedure No -Procedure Performed No [See Physician Procedure note for Specifics] Psych/Mental Status: Normal Affect, Appropriate Comment: left breast indurated and painful, firm to touch approx. 14 cm x 10 cm Debridement Note Post-Debridement Measurements/Treatment WC - Nurse 2 - General Ulcer CM Notes Start: 07/02/18 12:55 Freq: Status: Active Protocol: Activity Type Activity Date Activity User E-Sign Co-Sign Detail Recorded Client Recorded Date Recorded By Document 07/02/18 14:23 DV [id number] 07/02/18 14:33 DV 07/02/18 14:23 Wound Center Nurse 2 #2 right lower abd -Time 14:33 -Correct Patient Yes -Correct Side, Site, Position Yes -Correct Procedure No -Procedure Performed No #1 left breast -Time 14:33 -Correct Patient Yes -Correct Side, Site, Position Yes -Correct Procedure No -Procedure Performed No Wound debrided: left breast No debridement was completed today - Additional Wound Wound debrided: right lower abdomen Laterality: Right Operative Diagnosis: No debridement performed Assessment/Plan Active Problems (Last Reviewed 07/03/17 @ 15:04 by Marjan Mitchell) Wound of left breast (Chronic) Open wound of right lower quadrant of abdominal wall without penetration into peritoneal cavity (Chronic) Traumatic hematoma of abdominal wall (Chronic) Traumatic hematoma of female breast (Chronic) Type 2 diabetes mellitus (Chronic) Hyperlipidemia (Chronic) Tobacco use disorder (Chronic) Morbid obesity (Chronic) Assessment: traumatic wounds of left breast and right lower abdomen due to hematomas Plan: Keturah's wounds were evaluated today and will have her start using Santyl daily to her wounds as she is apprehensive of debridement surgically. Encouraged her to offload the areas and increase protein intake. Will also have her get a CT of her chest done to assess the hematoma for possible abcess. Will have her follow up in 1 week.
[2018-07-09 14:05] VITALS: BP 111/68; PULSE 94; RESP 18; TEMP 36.1
--- NOTE | 2018-07-09 16:55 | PN.PCM_ITS ---
(1) Wound of left breast Status: Chronic Current Visit: Yes Qualifiers: Encounter type: initial encounter Qualified Code(s): S21.002A - Unspecified open wound of left breast, initial encounter Code(s): S21.002A - Unspecified open wound of left breast, initial encounter (2) Open wound of right lower quadrant of abdominal wall without penetration into peritoneal cavity Status: Chronic Current Visit: Yes Qualifiers: Encounter type: initial encounter Qualified Code(s): S31.103A - Unspecified open wound of abdominal wall, right lower quadrant without penetration into peritoneal cavity, initial encounter Code(s): S31.103A - Unspecified open wound of abdominal wall, right lower quadrant without penetration into peritoneal cavity, initial encounter (3) Traumatic hematoma of abdominal wall Status: Chronic Current Visit: Yes Qualifiers: Encounter type: initial encounter Qualified Code(s): S30.1XXA - Contusion of abdominal wall, initial encounter Code(s): S30.1XXA - Contusion of abdominal wall, initial encounter (4) Traumatic hematoma of female breast Status: Chronic Current Visit: Yes Qualifiers: Encounter type: initial encounter Laterality: left Qualified Code(s): S20.02XA - Contusion of left breast, initial encounter Code(s): S20.00XA - Contusion of breast, unspecified breast, initial encounter (5) Type 2 diabetes mellitus Status: Chronic Current Visit: Yes Qualifiers: Diabetes mellitus skilled nursing insulin use: without skilled nursing use Diabetes mellitus complication status: with unspecified complications Qualified Code(s): E11.8 - Type 2 diabetes mellitus with unspecified complications Code(s): E11.9 - Type 2 diabetes mellitus without complications (6) Hyperlipidemia Status: Chronic Current Visit: Yes Qualifiers: Hyperlipidemia type: unspecified Qualified Code(s): E78.5 - Hyperlipidemia, unspecified Code(s): E78.5 - Hyperlipidemia, unspecified (7) Tobacco use disorder Status: Chronic Current Visit: Yes Code(s): F17.200 - Nicotine dependence, unspecified, uncomplicated (8) Morbid obesity Status: Chronic Current Visit: Yes Code(s): E66.01 - Morbid (severe) obesity due to excess calories Type of Wound Date of Service: 07/09/18 Chief Complaint: open wounds of left breast and right lower abdomen History of Wound: Keturah is a 62 yo woman who presents to the wound center for evaluation and traetment of nonhealing wounds to her left breast and right lower abdomen. She is referred by Dr. Mortensen, her PCP. She was jumped on by her dog 4-6 weeks ago and developed hematomas of her breasts and abdomen and back. The areas developed into open wounds of her left medial breast and right lower abdomen approx. 2 weeks ago. She is on plavix and aspirin for her CAD. She has been using maxi pads to the areas and antibiotic ointment. She completed doxycycline on Thursday for treatment for possible infection. She has moderate to heavy exudate from the wounds and they are painful. She denies fever or chills. Progress of Wound: Keturah is here today for follow up of wounds of her left breast and right lower abdomen. She was able to get Santyl and is tolerating treatment with this well. She has improvement in the density of her left breast and improvement in pain as well. She has moderate drainage form her wounds. She has been using warm, moist compresses to both her breast and her abdomen and increased proteion intake. She denies fever, chills, erythema, increased pain or increased erythema. - Physical Exam Vital Signs Temp Pulse Resp BP 97 F L 94 18 111/68 07/09/18 14:05 07/09/18 14:05 07/09/18 14:05 07/09/18 14:05 General: Alert, Oriented x3, Cooperative, No apparent distress HEENT: Atraumatic, Normocephalic Oral: Moist Mucosa Abdomen: Soft, Obese Skin: Ulcer/ Wound Wound Measurements and Assessment WC - Nurse 1 - General Ulcer Measurement Start: 07/02/18 12:55 Freq: Status: Active Protocol: Activity Type Activity Date Activity User E-Sign Co-Sign Detail Recorded Client Recorded Date Recorded By Document 07/09/18 14:05 RB [id number] 07/09/18 14:16 RB 07/09/18 14:05 Wound Center Nurse 1 [Ulcer Assessment] #2 right lower abd -Current Size (cm) - Length 5.5 -Current Size (cm) - Width 4 -Current Size (cm) - Depth 0.3 -Total Square Cm 22.0 -Tunneling No -Undermining/Tunneling No -Circular Undermining No -Exudate Amt Small -Exudate Type Serosanguineous -Wound Margin Thickened & Rolled Under -Granulation Amt Medium (34-66%) -Granulation Quality [place] -Necrosis Amt Medium (34-66%) -Necrotic Tissue Type Adherent Slough -Structure Exposed N/A -Texture (Gabriela-wound Skin Appearance) Assessed Friable -Moisture (Gabriela-wound Skin Appearance Assessed ) -Color (Gabriela-wound Skin Appearance) Assessed Erythema Hemosiderin Staining -Temperature (Gabriela-wound Skin No Abnormality Appearance) (Pt Warm) -Tenderness on Palpation (Gabriela-wound No Skin Appearance) -Ulcer Cleansing Wound Cleanser -Foul Odor after Cleansing No -Anesthetic Used 5% Lidocaine Gel #1 left breast -Combined with other wound No -Current Size (cm) - Length 3 -Current Size (cm) - Width 4.1 -Current Size (cm) - Depth 0.1 -Total Square Cm 12.3 -Tunneling No -Undermining/Tunneling No -Circular Undermining No -Exudate Amt Small -Exudate Type Serosanguineous -Wound Margin Distinct, Outline Attached -Granulation Amt Medium (34-66%) -Granulation Quality [place] -Slough/Fibrin Yes -Necrosis Amt Medium (34-66%) -Necrotic Tissue Type Adherent Slough -Structure Exposed N/A -Texture (Gabriela-wound Skin Appearance) Assessed Friable -Moisture (Gabriela-wound Skin Appearance Assessed ) -Color (Gabriela-wound Skin Appearance) Assessed -Temperature (Gabriela-wound Skin No Abnormality Appearance) (Pt Warm) -Tenderness on Palpation (Gabriela-wound No Skin Appearance) -Ulcer Cleansing Wound Cleanser -Foul Odor after Cleansing No -Anesthetic Used 5% Lidocaine Gel WC - Nurse 2 - General Ulcer CM Notes Start: 07/02/18 12:55 Freq: Status: Active Protocol: Activity Type Activity Date Activity User E-Sign Co-Sign Detail Recorded Client Recorded Date Recorded By Document 07/09/18 14:29 MW [id number] 07/09/18 14:41 MW 07/09/18 14:29 Wound Center Nurse 2 [Procedure/Treatment] #2 right lower abd -Time 14:33 -Correct Patient Yes -Correct Side, Site, Position Yes -Correct Procedure Yes -Procedure Performed Yes -Type of Procedure Debridement -Clinical Debridement Subcutaneous -Post Debridement Size (cm) - Length 3.5 -Post Debridement Size (cm) - Width 4.7 -Post Debridement Size (cm) - Depth 0.1 -Total Square Cm 16.45 -Wound/Ulcer Outcome Not Healed -Ulcer Cleansing Rinsed/ Irrigated with Saline -Foul Odor after Cleansing No -Bioengineered Tissue No -Bleeding Controlled with Pressure -Offloading No -Treatment Response Procedure Tolerated Well #1 left breast -Time 14:30 -Correct Patient Yes -Correct Side, Site, Position Yes -Correct Procedure Yes -Procedure Performed No -Post Debridement Size (cm) - Length 3.8 -Post Debridement Size (cm) - Width 3.6 -Post Debridement Size (cm) - Depth 0.1 -Total Square Cm 13.68 -Wound/Ulcer Outcome Not Healed -Ulcer Cleansing Rinsed/ Irrigated with Saline -Foul Odor after Cleansing No -Bioengineered Tissue No -Bleeding Controlled with NA -Offloading No -Treatment Response Procedure Tolerated Well [See Physician Procedure note for Specifics] Pain Scale: 0-10 Numeric [Pain] -Is Patient Pain Free? Yes Psych/Mental Status: Normal Affect, Appropriate Debridement Note Post-Debridement Measurements/Treatment WC - Nurse 2 - General Ulcer CM Notes Start: 07/02/18 12:55 Freq: Status: Active Protocol: Activity Type Activity Date Activity User E-Sign Co-Sign Detail Recorded Client Recorded Date Recorded By Document 07/02/18 14:23 DV [id number] 07/02/18 14:33 DV Document 07/09/18 14:29 MW [id number] 07/09/18 14:41 MW 07/02/18 07/09/18 14:23 14:29 Wound Center Nurse 2 #2 right lower abd -Time 14:33 14:33 -Correct Patient Yes Yes -Correct Side, Site, Position Yes Yes -Correct Procedure No Yes -Procedure Performed No Yes -Type of Procedure Debridement -Clinical Debridement Subcutaneous -Post Debridement Size (cm) - Length 3.5 -Post Debridement Size (cm) - Width 4.7 -Post Debridement Size (cm) - Depth 0.1 -Total Square Cm 16.45 -Wound/Ulcer Outcome Not Healed -Ulcer Cleansing Rinsed/ Irrigated with Saline -Foul Odor after Cleansing No -Bioengineered Tissue No -Bleeding Controlled with Pressure -Offloading No -Treatment Response Procedure Tolerated Well #1 left breast -Time 14:33 14:30 -Correct Patient Yes Yes -Correct Side, Site, Position Yes Yes -Correct Procedure No Yes -Procedure Performed No No -Post Debridement Size (cm) - Length 3.8 -Post Debridement Size (cm) - Width 3.6 -Post Debridement Size (cm) - Depth 0.1 -Total Square Cm 13.68 -Wound/Ulcer Outcome Not Healed -Ulcer Cleansing Rinsed/ Irrigated with Saline -Foul Odor after Cleansing No -Bioengineered Tissue No -Bleeding Controlled with NA -Offloading No -Treatment Response Procedure Tolerated Well Pain Scale: 0-10 Numeric Is Patient Pain Free? Yes Wound debrided: right lower abdomen Laterality: Right Type of Debridement: Excisional debridement Anesthesia Used: 4% Lidocaine Solution, 5% Lidocaine Gel Depth: Down to and including healthy tissue, in the subcutaneous layer Percentage of wound debrided: 100 Instrument Used: 5mm curette Tissue Removed: yellow slough, devitalized tissue Severity: Fat Layer Exposed Amount of bleeding with debridement: Mild Bleeding Controlled with: Compression and gauze Patient tolerated procedure well - Additional Wound Wound debrided: left medial breast Laterality: Left Operative Diagnosis: no debridement done at patient request due to pain Assessment/Plan Active Problems (Last Reviewed 07/03/17 @ 15:04 by Marjan Mitchell) Wound of left breast (Chronic) Open wound of right lower quadrant of abdominal wall without penetration into peritoneal cavity (Chronic) Traumatic hematoma of abdominal wall (Chronic) Traumatic hematoma of female breast (Chronic) Type 2 diabetes mellitus (Chronic) Hyperlipidemia (Chronic) Tobacco use disorder (Chronic) Morbid obesity (Chronic) Assessment: traumatic wounds of left breast and right lower abdomen due to hematomas Plan: Keturah's wounds were evaluated today and will have her start using Santyl daily to her wounds. Debridement performed to right lower abdomen as above. Encouraged her to offload the areas and increase protein intake. CT of her chest has been ordered and awaiting approval of insurance to assess the hematoma of her left breast for possible abscess. Will have her follow up in 1 week.
== END 2018-07-09 23:59 ==
LOC: WC 13:45
PROVIDERS: Family Provider Family Medicine; PCP Family Medicine; Visit Provider Family Medicine
DX: S20.02XS Contusion of left breast, sequela (principal); S30.1XXS Contusion of abdominal wall, sequela; E11.9 Type 2 diabetes mellitus without complications; E78.5 Hyperlipidemia, unspecified; S31.109S Unspecified open wound of abdominal wall, unspecified quadrant without penetration into peritoneal cavity, sequela; S21.002S Unspecified open wound of left breast, sequela; E66.01 Morbid (severe) obesity due to excess calories; Z71.3 Dietary counseling and surveillance; I25.10 Atherosclerotic heart disease of native coronary artery without angina pectoris; Z79.02 Long term (current) use of antithrombotics/antiplatelets; Z79.82 Long term (current) use of aspirin; W54.1XXS Struck by dog, sequela; Z95.1 Presence of aortocoronary bypass graft; I10 Essential (primary) hypertension; Z79.899 Other long term (current) drug therapy; F17.210 Nicotine dependence, cigarettes, uncomplicated
CPT/HCPCS: 11042; 97602; 99213; G0463

== ENCOUNTER → 2018-07-14 | Outpatient (CLI) | payer OTHER, SELFPAY ==
[2017-07-08 11:20] VITALS: BMI 52.1
--- NOTE | 2018-07-14 06:30 | CT_ITS ---
STUDY: CT CHEST/THORAX WITH CONTRAST REASON FOR EXAM: Female, 62 years old. Dog scratch 5 weeks ago, now seeping left breast 1. History of CABG. RADIATION DOSAGE (If Supplied By Facility): CTDIvol = ( 18.80 ) mGy, DLP = ( 1220.94 ) mGycm TECHNIQUE: Transaxial imaging was performed following intravenous administration of 75 IV Isovue 300. Multiplanar coronal and sagittal images were reformatted. Individualized dose optimization techniques were used for this CT. COMPARISON: PA and lateral chest x-ray July 04, 2017. FINDINGS: Thyroid gland is enlarged, with a heterogeneous, multinodular appearance. One of the largest areas of concern is incompletely defined, mildly lobulated 1.7 x 1.2 x 1.65 cm probable nodule in the thyroid isthmus just right of midline. There may be a 1.5 x 1.7 x 2.2 cm lesion occupying most of the lower pole of the left lobe. Mildly mottled, ill-defined mixed density in the lung gates likely related to incomplete inspiratory effort and crowding. 7.5 mm vague density in the posterior periphery of the left upper lobe abutting the pleural fissure on series 4 image 69, series 602 image 204 could be a focus of mild atelectasis or inflammatory change. No consolidating infiltrate, however. There is no demonstrated pleural abnormality. Normal heart size and pericardium. There are calcifications of the coronary arteries. Sternal cerclage wires and vascular clips are present from a prior sternotomy and coronary artery bypass graft procedure (CABG). There are number of upper size to borderline enlarged mediastinal lymph nodes. A right paratracheal lymph node, for example is 1.9 x 1.4 x 1.2 cm. Normal hilar regions. Normal enhanced pulmonary arteries. There is atherosclerotic calcification of the aortic arch and proximal brachiocephalic arteries. There are multi-level degenerative changes of the thoracic spine. Osteoarthritic degenerative changes noted at the bilateral acromioclavicular joints. There is minimal cutaneous thickening along the medial aspect of left breast, but the draining wound described in the history is not overtly evident, nor is there sign of underlying mass or abscess. Mildly irregular shaped 3.35 x 1.25 x 2.4 cm low-density lesion in the anterior left lobe of the liver near the falciform ligament is a common site of focal fatty infiltration. There is a 1 cm rounded lesion of similar texture in the posterior periphery of the right lobe as well, and both of these are of uncertain etiology. There is borderline thickening of the bilateral adrenal glands. CT/Chest WITH Contrast IMPRESSION: 1. Minimal cutaneous thickening along the medial aspect of the left breast. Neither a draining wound or underlying breast pathology are apparent, however. 2. Suboptimal inspiratory effort with mild crowding. Small focus of atelectasis or inflammatory change in the posterior periphery left upper lobe abutting the pleural fissure. 3. Atherosclerotic vascular calcifications present. Prior median sternotomy and CABG. The heart size is normal. 4. There are number of upper normal size to borderline enlarged mediastinal lymph nodes, likely reactive. 5. Large, multinodular thyroid gland. This is also described on CT soft tissues of the neck December 08, 2010, but those images were not available for comparison. This could be characterized and followed with ultrasound. 6. 3.35 cm low-density lesion in the anterior left lobe liver is also malignant as well as 1 cm rounded lesion of similar texture in the posterior periphery of the right hepatic lobe, etiology uncertain. These also could be further characterized with ultrasound. Electronically Signed: Ryne Pittman MD at 13:55 EDT , Service support ,
[2018-07-14 06:45] LABS: CREATININE FINGERSTICK 1.6 mg/dL (0.55-1.02)
== END | disposition home or self-care (01) ==
PROVIDERS: Family Provider Family Medicine; PCP Family Medicine; Referring Provider Family Medicine; Visit Provider Family Medicine
DX: S21.002A Unspecified open wound of left breast, initial encounter (principal); N64.89 Other specified disorders of breast
CPT/HCPCS: 71260; Q9967

== ENCOUNTER 2018-07-20 19:28 | Emergency (ER) | payer OTHER, SELFPAY ==
[2017-07-08 11:20] VITALS: BMI 52.1
[2018-07-20 19:29] VITALS: BP 150/77; PULSE 90; RESP 15; TEMP 36.3; BMI 48.9
[2018-07-20 21:21] LABS: Absolute Lymphocyte Count 1.98 X10^3/ul (0.83-4.51); Absolute Neutrophil Count 9.9 X10^3/uL (2.0-7.7); Basophil# 0.11 X10^3/uL; Basophil% 0.8 % (0-1); Eosinophil# 0.19 X10^3/uL; Eosinophils% 1.4 % (0-5); Hematocrit 52.6 % (37-47); Hemoglobin 17.5 g/dl (12.0-15.0); Lymphocyte # 1.98 X10^3/ul (4.0); Lymphocyte % 14.6 % (19-41); Mean Corp Hgb Conc 33.3 g/gl (32-36); Mean Corpuscular Volume 81.2 fL (81-99); Mean Platelet Vol. 10.1 fl (6.2-12.0); Monocyte# 1.28 X10^3/uL; Monocyte% 9.5 % (0-10); Neutrophil # 9.92 X10^3/uL (2.7-7.7); Neutrophil % 73.4 % (47-70); Platelet Count 339 K/mm3 (150-450); RBC Distribution Width CV 15.8 % (11.6-14.6); Red Blood Count 6.48 M/mm3 (4.2-5.4); White Blood Count 13.5 K/mm3 (4.4-11.0)
[2018-07-20 21:22] LABS: POSITIVE COUNT NO; POSITIVE DIFFERENTIAL NO; POSITIVE MORPHOLOGY NO
[2018-07-20] MEDS: oxyCODONE 5 MG Tablet 10 MG PO (21:43)
--- NOTE | 2018-07-20 22:03 | ED.DCSUM_ITS ---
- ER Visit Summary Date of Service: 07/20/18 Chief Complaint: Wound check History of Present Illness: The patient is a 62 F who states that back in May her large dog jumped on her she resulted in a hematoma of the left breast of the abdominal wall. This eventually led to some skin breakdown and now has had a chronic wound. He is she has been seen at the wound center. She is currently on doxycycline and Flagyl as well as some ketoconazole. On Thursday she was seen by wound care and they took cultures. She has CT scan of the left breast last Thursday that showed no abscess. She is concerned about worsening infection due to increased pain particularly with dressing changes. notes that t he redness is around the wounds are improved. He is more concerned with her pain. Physical Examination: Afebrile vital signs are stable Gen: Well-nourished well-developed morbid obesity Head: Normocephalic atraumatic Eyes: Perrl EOMI ENT: TMs clear no rhinorrhea moist mucous membranes Neck: Supple no lymphadenopathy no JVD nontender CVS: Regular rate rhythm no murmurs normal S1-S2 Respiratory: No distress clear to auscultation bilaterally Abdomen: Soft nontender nondistended normal bowel sounds no masses Back: Nontender Extremity: Nontender no edema Skin: Normal color there are 3 wounds which were evaluated. 1 of the left breast and 2 on the right lower abdominal pannus. There is no surrounding erythema. The 2 on the abdomen are almost dried. The one on the breast shows some granulation tissue present. Neuro: alert orientated ?3 CN II-XII intact normal strength sensation reflexes gait cerebellar Psych: Normal affect normal mood Test Results: White count of 13. Emergency Department Course and Treatment: Most of the patient's pain was simply when I was removing tape from the wound. We have changed her tape that she is using. I will write for oxycodone and have her discontinue her tramadol. I do not believe she needs IV antibiotics based on the physical exam. Patient to follow-up with the wound center as scheduled this Thursday Impression: 1. Wound check of the left breast and to abdominal wound This note was generated with [employer] software. It may contain incorrect words, spelling, and punctuation that were not noted in review of the chart prior to signing ED Disposition - Plan for ED Patient: Disposition: Home or Assisted Living Instructions: Oxycodone Hydrochloride, Acetaminophen Oral tablet Prescriptions: Oxycodone HCl/Acetaminophen [Percocet 5/325] 1 tab PO Q6H PRN PRN 3 Days #12 tab PRN Reason: Pain Nystatin Powder [Mycostatin Powder] 1 applic TOPICAL TID #2 bottle Referrals: Manuel Mortensen MD [Primary Care Provider] - Additional Instructions: Follow-up at the wound center as scheduled. Discontinue the tramadol for the oxycodone. Do not take these together. Continue the wound care as directed.
[2018-07-20 22:34] VITALS: BP 148/70; PULSE 74; RESP 20; O2SAT 97
[2018-07-20 22:35] VITALS: BP 148/70; PULSE 74; RESP 20; O2SAT 97
== END 2018-07-20 22:46 | disposition home or self-care (01) ==
PROVIDERS: Emergency Provider Emergency Medicine; Family Provider Family Medicine; PCP Family Medicine
DX: Z48.00 Encounter for change or removal of nonsurgical wound dressing (principal); E66.9 Obesity, unspecified; J44.9 Chronic obstructive pulmonary disease, unspecified; E11.9 Type 2 diabetes mellitus without complications; I10 Essential (primary) hypertension; E78.00 Pure hypercholesterolemia, unspecified; Z79.82 Long term (current) use of aspirin; Z79.899 Other long term (current) drug therapy; Z72.0 Tobacco use
CPT/HCPCS: 85025; 99282; A4216

== ENCOUNTER → 2018-07-27 | Outpatient (CLI) | payer OTHER, SELFPAY ==
[2017-07-08 11:20] VITALS: BMI 52.1
[2018-07-20 19:29] VITALS: BMI 48.9
--- NOTE | 2018-07-27 08:23 | US_ITS ---
STUDY: THYROID ULTRASOUND REASON FOR EXAM: Female, 62 years old. Goiter TECHNIQUE: Ultrasound evaluation of the thyroid was performed with real-time and static sumner-scale imaging. COMPARISON: CT chest July 14, 2018 FINDINGS: RIGHT LOBE: The right lobe of the thyroid gland measures 5.8 x 2.4 x 2.0 cm. There is a heterogeneous echotexture. There are multiple right-sided thyroid nodules proximally 5 the largest of which measures 2.5 x 2.6 x 1.6 cm. This is a rather solid appearing nodule with encapsulation without significant cystic components. There is limited vascularity. LEFT LOBE: The left lobe of the thyroid gland measures 6.0 x 2 0.5-2.5 cm. There is a heterogeneous echotexture. There are multiple nodules on the left side, the largest of which measures 1.7 x 1.4 cm. This is also similar in size with a solid almost encapsulated appearance. ISTHMUS: The isthmus measures 4 . The regional lymph nodes are normal. US/Thyroid IMPRESSION: Thyromegaly multiple nodules findings most consistent with multinodular goiter. Recommend appropriate follow-up laboratory values and 6 months ultrasound to ensure stability. Electronically Signed: Gabriela Maria MD at 17:07 EDT Tel , Service support ,
--- NOTE | 2018-07-27 10:34 | US_ITS ---
HISTORY: LIVER NODULE SEEN ON RECENT CT EXAM/TECHNIQUE: US Abdomen RUQ (limited): COMPARISON: CT chest 07/14/18. FINDINGS: # of images incl. paperwork: 106 Liver: Increased echogenicity. Enlarged. The bile ducts are within normal limits. There is no demonstrated mass lesion. The focal hypodense lesion seen on the CT are not identifiable on the ultrasound. Gallbladder: Normal distended gallbladder. The gallbladder wall measures 2 mm. There is a negative sonographic Rojas's sign. There is no pericholecystic fluid. There are no gallstones. Common Bile Duct: The common bile duct measures 4 mm. Pancreas: Unremarkable as visualized. The tail is mostly obscured by bowel gas. Right Kidney: 10.4 x 4.9 x 4.9 cm. Normal renal cortex. There is no demonstrated renal mass or cyst. There is no right hydronephrosis. The technologist measured a 4.1 x 2.8 x 4.7 cm area of decreased echogenicity between the right kidney and the liver which is not well evaluated and possibly artifactual. There is no ascites. US/Abdomen Limited IMPRESSION: Hepatic steatosis with hepatomegaly. No focal hepatic lesions correspond to the low-density lesion seen on the CT. at 1143 Reported and signed by: Tommy Sheth MD Electronically Signed: Tommy Sheth, at 11:42 EDT Tel , Service support ,
== END | disposition home or self-care (01) ==
PROVIDERS: Family Provider Family Medicine; Referring Provider Family Medicine; Visit Provider Family Medicine
DX: E04.2 Nontoxic multinodular goiter (principal); K76.89 Other specified diseases of liver
CPT/HCPCS: 76536; 76705

== ENCOUNTER → 2018-07-30 | Outpatient (CLI) | payer OTHER, SELFPAY ==
[2017-07-08 11:20] VITALS: BMI 52.1
[2018-07-30 12:40] VITALS: BMI 48.9
[2018-07-30 13:45] VITALS: BP 137/63; PULSE 86; RESP 18; TEMP 36.2; O2SAT 95; BMI 48.8
--- NOTE | 2018-07-30 14:44 | NURSING ---
TEST DOSE INFUSED, NO S/S OF REACTIONS, WILL MONITOR X 30 MIN PER ORDER
== END | disposition home or self-care (01) ==
LOC: MEDOUTP 13:32
PROVIDERS: Family Provider Family Medicine; Referring Provider Internal Medicine Infectious Disease; Visit Provider Internal Medicine Infectious Disease
DX: S21.002D Unspecified open wound of left breast, subsequent encounter (principal)
CPT/HCPCS: 96365 ×2; J3490

== ENCOUNTER 2018-07-31 11:27 | Outpatient (CLI) | payer OTHER, SELFPAY ==
[2017-07-08 11:20] VITALS: BMI 52.1
[2018-07-30 13:45] VITALS: BMI 48.8
[2018-07-31 11:37] VITALS: BP 117/69; PULSE 76; RESP 18; TEMP 35.8; O2SAT 93; BMI 48.8
== END 2018-07-31 12:29 | disposition home or self-care (01) ==
LOC: ED 11:30
PROVIDERS: Family Provider Family Medicine; Referring Provider Internal Medicine Infectious Disease; Visit Provider Internal Medicine Infectious Disease
DX: Z00.00 Encounter for general adult medical examination without abnormal findings (principal)

== ENCOUNTER → 2018-08-01 | Outpatient (CLI) | payer OTHER, SELFPAY ==
[2017-07-08 11:20] VITALS: BMI 52.1
[2018-07-30 12:40] VITALS: BMI 48.9
[2018-07-31 11:37] VITALS: BMI 48.8
[2018-08-01 11:35] VITALS: BP 151/72; PULSE 82; RESP 18; TEMP 36.5; O2SAT 93; BMI 48.8
[2018-08-01] MEDS: Ertapenem Sod 1 GM/10 ML Vial IM (12:04)
== END | disposition home or self-care (01) ==
LOC: MEDOUTP 11:12
PROVIDERS: Family Provider Family Medicine; Visit Provider Internal Medicine Infectious Disease
DX: S21.002D Unspecified open wound of left breast, subsequent encounter (principal)
CPT/HCPCS: 96372

== ENCOUNTER 2018-08-02 11:00 | Outpatient (RCR) | payer OTHER, SELFPAY ==
[2017-07-08 11:20] VITALS: BMI 52.1
[2018-07-10 01:28] VITALS: BP 111/68; PULSE 94; RESP 18; TEMP 36.1
[2018-07-16 13:25] VITALS: BP 130/79; PULSE 85; RESP 16; TEMP 36.8
--- NOTE | 2018-07-16 17:55 | PCM.WC.PN ---
(1) Cellulitis and abscess of trunk Status: Acute Current Visit: Yes Code(s): L03.319 - Cellulitis of trunk, unspecified; L02.219 - Cutaneous abscess of trunk, unspecified (2) Wound of left breast Status: Chronic Current Visit: Yes Qualifiers: Encounter type: subsequent encounter Qualified Code(s): S21.002D - Unspecified open wound of left breast, subsequent encounter Code(s): S21.002A - Unspecified open wound of left breast, initial encounter (3) Open wound of right lower quadrant of abdominal wall without penetration into peritoneal cavity Status: Chronic Current Visit: Yes Qualifiers: Encounter type: subsequent encounter Qualified Code(s): S31.103D - Unspecified open wound of abdominal wall, right lower quadrant without penetration into peritoneal cavity, subsequent encounter Code(s): S31.103A - Unspecified open wound of abdominal wall, right lower quadrant without penetration into peritoneal cavity, initial encounter (4) Traumatic hematoma of abdominal wall Status: Chronic Current Visit: Yes Qualifiers: Encounter type: subsequent encounter Qualified Code(s): S30.1XXD - Contusion of abdominal wall, subsequent encounter Code(s): S30.1XXA - Contusion of abdominal wall, initial encounter (5) Traumatic hematoma of female breast Status: Chronic Current Visit: Yes Qualifiers: Encounter type: subsequent encounter Code(s): S20.00XA - Contusion of breast, unspecified breast, initial encounter (6) Type 2 diabetes mellitus Status: Chronic Current Visit: Yes Qualifiers: Diabetes mellitus long-term insulin use: unspecified long-term insulin use status Diabetes mellitus complication status: with neurologic complications Diabetes mellitus complication detail: with polyneuropathy Qualified Code(s): E11.42 - Type 2 diabetes mellitus with diabetic polyneuropathy Code(s): E11.9 - Type 2 diabetes mellitus without complications Type of Wound Date of Service: 07/16/18 Chief Complaint: open wounds of left breast and right lower abdomen History of Wound: Keturah is a 62 yo woman who presents to the wound center for evaluation and traetment of nonhealing wounds to her left breast and right lower abdomen. She is referred by Dr. Mortensen, her PCP. She was jumped on by her dog 4-6 weeks ago and developed hematomas of her breasts and abdomen and back. The areas developed into open wounds of her left medial breast and right lower abdomen approx. 2 weeks ago. She is on plavix and aspirin for her CAD. She has been using maxi pads to the areas and antibiotic ointment. She completed doxycycline on Thursday for treatment for possible infection. She has moderate to heavy exudate from the wounds and they are painful. She denies fever or chills. Progress of Wound: Keturah is here today for follow up of wounds of her left breast and right lower abdomen. She has significantly increased pain from her lower abdomen this week and an odor to her wound. She has increased eschar and necrosis as well. She is tolerating treatment with Santyl. She has improvement in the density of her left breast and improvement in pain of her left breast as well. She has moderate drainage from her wounds. She has been using warm, moist compresses to both her breast and her abdomen and increased proteion intake. She denies fever, chills. - Physical Exam Vital Signs Temp Pulse Resp BP 98.2 F 85 16 130/79 H 07/16/18 13:25 07/16/18 13:25 07/16/18 13:25 07/16/18 13:25 General: Alert, Oriented x3, Cooperative, No apparent distress HEENT: Atraumatic, Normocephalic Oral: Moist Mucosa Abdomen: Obese Skin: Ulcer/ Wound Wound Measurements and Assessment WC - Nurse 1 - General Ulcer Measurement Start: 07/16/18 13:24 Freq: Status: Active Protocol: Activity Type Activity Date Activity User E-Sign Co-Sign Detail Recorded Client Recorded Date Recorded By Document 07/16/18 13:25 [facility] [id number] 07/16/18 13:38 [facility] 07/16/18 13:25 Wound Center Nurse 1 [Ulcer Assessment] #3- RT ABDOMEN -Combined with other wound No -Current Size (cm) - Length 1.7 -Current Size (cm) - Width 2.1 -Current Size (cm) - Depth 0.1 -Total Square Cm 3.57 -Date of Last Picture (Recall this 07/16/18 field) -Photo Taken Yes -Epithelialization None Present -Tunneling No -Undermining/Tunneling No -Circular Undermining No -Exudate Amt Medium -Exudate Type Serosanguineous -Wound Margin Distinct, Outline Attached -Granulation Amt Small (1-33%) -Granulation Quality Red -Slough/Fibrin Yes -Necrosis Amt Large (67-100%) -Necrotic Tissue Type Eschar -Texture (Gabriela-wound Skin Appearance) Assessed Scarring -Moisture (Gabriela-wound Skin Appearance Assessed ) -Color (Gabriela-wound Skin Appearance) Assessed Erythema -Temperature (Gabriela-wound Skin No Abnormality Appearance) (Pt Warm) -Tenderness on Palpation (Gabriela-wound Yes Skin Appearance) -Ulcer Cleansing Rinsed/ Irrigated with Saline -Foul Odor after Cleansing No -Anesthetic Used 5% Lidocaine Gel #2 right lower abd -Combined with other wound No -Current Size (cm) - Length 4.1 -Current Size (cm) - Width 5.2 -Current Size (cm) - Depth 0.2 -Total Square Cm 21.32 -Photo Taken No -Epithelialization None Present -Tunneling No -Undermining/Tunneling No -Circular Undermining No -Exudate Amt Medium -Exudate Type Serosanguineous -Wound Margin Distinct, Outline Attached -Granulation Amt Medium (34-66%) -Granulation Quality Red -Slough/Fibrin Yes -Necrosis Amt Medium (34-66%) -Necrotic Tissue Type Adherent Slough -Texture (Gabriela-wound Skin Appearance) Assessed Scarring -Moisture (Gabriela-wound Skin Appearance Assessed ) -Color (Gabriela-wound Skin Appearance) Assessed Erythema -Temperature (Gabriela-wound Skin No Abnormality Appearance) (Pt Warm) -Tenderness on Palpation (Gabriela-wound Yes Skin Appearance) -Ulcer Cleansing Rinsed/ Irrigated with Saline -Foul Odor after Cleansing No -Anesthetic Used 5% Lidocaine Gel #1 left breast -Combined with other wound No -Current Size (cm) - Length 4 -Current Size (cm) - Width 4 -Current Size (cm) - Depth 0.2 -Total Square Cm 16 -Photo Taken No -Epithelialization None Present -Tunneling No -Undermining/Tunneling No -Circular Undermining No -Exudate Amt Medium -Exudate Type Serosanguineous -Wound Margin Distinct, Outline Attached -Granulation Amt Medium (34-66%) -Granulation Quality Red -Slough/Fibrin Yes -Necrosis Amt Medium (34-66%) -Necrotic Tissue Type Adherent Slough -Texture (Gabriela-wound Skin Appearance) Assessed Scarring -Moisture (Gabriela-wound Skin Appearance Assessed ) -Color (Gabriela-wound Skin Appearance) Assessed Erythema -Temperature (Gabriela-wound Skin No Abnormality Appearance) (Pt Warm) -Tenderness on Palpation (Gabriela-wound Yes Skin Appearance) -Ulcer Cleansing Rinsed/ Irrigated with Saline -Foul Odor after Cleansing No -Anesthetic Used 5% Lidocaine Gel WC - Nurse 2 - General Ulcer CM Notes Start: 07/16/18 13:24 Freq: Status: Active Protocol: Activity Type Activity Date Activity User E-Sign Co-Sign Detail Recorded Client Recorded Date Recorded By Document 07/16/18 14:21 DV [id number] 07/16/18 14:31 DV 07/16/18 14:21 Wound Center Nurse 2 [Procedure/Treatment] #3- RT ABDOMEN -Time 14:30 -Correct Patient Yes -Correct Side, Site, Position Yes -Correct Procedure No -Procedure Performed No -Wound/Ulcer Outcome Not Healed #2 right lower abd -Time 14:30 -Correct Patient Yes -Correct Side, Site, Position Yes -Correct Procedure No -Procedure Performed No -Wound/Ulcer Outcome Not Healed #1 left breast -Time 14:31 -Correct Patient Yes -Correct Side, Site, Position Yes -Correct Procedure No -Procedure Performed No -Wound/Ulcer Outcome Not Healed [See Physician Procedure note for Specifics] Pain Scale: 0-10 Numeric [Pain] -Is Patient Pain Free? Yes Psych/Mental Status: Normal Affect, Appropriate Debridement Note Post-Debridement Measurements/Treatment RHYS - Nurse 2 - General Ulcer CM Notes Start: 07/16/18 13:24 Freq: Status: Active Protocol: Activity Type Activity Date Activity User E-Sign Co-Sign Detail Recorded Client Recorded Date Recorded By Document 07/16/18 14:21 DV [id number] 07/16/18 14:31 DV 07/16/18 14:21 Wound Center Nurse 2 #3- RT ABDOMEN -Time 14:30 -Correct Patient Yes -Correct Side, Site, Position Yes -Correct Procedure No -Procedure Performed No -Wound/Ulcer Outcome Not Healed #2 right lower abd -Time 14:30 -Correct Patient Yes -Correct Side, Site, Position Yes -Correct Procedure No -Procedure Performed No -Wound/Ulcer Outcome Not Healed #1 left breast -Time 14:31 -Correct Patient Yes -Correct Side, Site, Position Yes -Correct Procedure No -Procedure Performed No -Wound/Ulcer Outcome Not Healed Pain Scale: 0-10 Numeric Is Patient Pain Free? Yes Wound debrided: right abdomen Laterality: Right No debridement was completed today - due to patient declining debridement due to pain - Additional Wound Wound debrided: right lower abdomen Laterality: Right Operative Diagnosis: No debridement completed due to pain - Additional Wound Wound debrided: left breast Laterality: Left Operative Diagnosis: no debridement completed due to pain Assessment/Plan Active Problems (Last Reviewed 07/03/17 @ 15:04 by Marjan Mitchell) Wound of left breast (Chronic) Open wound of right lower quadrant of abdominal wall without penetration into peritoneal cavity (Chronic) Traumatic hematoma of abdominal wall (Chronic) Traumatic hematoma of female breast (Chronic) Cellulitis and abscess of trunk (Acute) Type 2 diabetes mellitus (Chronic) Assessment: traumatic wounds of left breast and right lower abdomen due to hematomas Plan: Keturah's wounds were evaluated today, will have her continue using Santyl daily to her wounds. Wound cultures taken of her right abdomen wound and will start her on doxycycline and flagyl until wound cultures are finalized. Encouraged her to try to offload the areas and increase protein intake. CT of her chest did not show any abscess of her left breast. there were incidental findings of nodules of her thyroid as well as abnormalities of her liver which she was advised to contact her PCP for follow up. Advised her to call or go to ER if increased pain, fever or chills. Will have her follow up in 1 week.
--- NOTE | 2018-07-16 18:00 | PN.PCM_ITS ---
(1) Cellulitis and abscess of trunk Status: Acute Current Visit: Yes Code(s): L03.319 - Cellulitis of trunk, unspecified; L02.219 - Cutaneous abscess of trunk, unspecified (2) Wound of left breast Status: Chronic Current Visit: Yes Qualifiers: Encounter type: subsequent encounter Qualified Code(s): S21.002D - Unspecified open wound of left breast, subsequent encounter Code(s): S21.002A - Unspecified open wound of left breast, initial encounter (3) Open wound of right lower quadrant of abdominal wall without penetration into peritoneal cavity Status: Chronic Current Visit: Yes Qualifiers: Encounter type: subsequent encounter Qualified Code(s): S31.103D - Unspecified open wound of abdominal wall, right lower quadrant without penetration into peritoneal cavity, subsequent encounter Code(s): S31.103A - Unspecified open wound of abdominal wall, right lower quadrant without penetration into peritoneal cavity, initial encounter (4) Traumatic hematoma of abdominal wall Status: Chronic Current Visit: Yes Qualifiers: Encounter type: subsequent encounter Qualified Code(s): S30.1XXD - Contusion of abdominal wall, subsequent encounter Code(s): S30.1XXA - Contusion of abdominal wall, initial encounter (5) Traumatic hematoma of female breast Status: Chronic Current Visit: Yes Qualifiers: Encounter type: subsequent encounter Code(s): S20.00XA - Contusion of breast, unspecified breast, initial encounter (6) Type 2 diabetes mellitus Status: Chronic Current Visit: Yes Qualifiers: Diabetes mellitus halfway insulin use: unspecified halfway insulin use status Diabetes mellitus complication status: with neurologic complications Diabetes mellitus complication detail: with polyneuropathy Qualified Code(s): E11.42 - Type 2 diabetes mellitus with diabetic polyneuropathy Code(s): E11.9 - Type 2 diabetes mellitus without complications Type of Wound Date of Service: 07/16/18 Chief Complaint: open wounds of left breast and right lower abdomen History of Wound: Keturah is a 62 yo woman who presents to the wound center for evaluation and traetment of nonhealing wounds to her left breast and right lower abdomen. She is referred by Dr. Mortensen, her PCP. She was jumped on by her dog 4-6 weeks ago and developed hematomas of her breasts and abdomen and back. The areas developed into open wounds of her left medial breast and right lower abdomen approx. 2 weeks ago. She is on plavix and aspirin for her CAD. She has been using maxi pads to the areas and antibiotic ointment. She completed doxycycline on Thursday for treatment for possible infection. She has moderate to heavy exudate from the wounds and they are painful. She denies fever or chills. Progress of Wound: Keturah is here today for follow up of wounds of her left breast and right lower abdomen. She has significantly increased pain from her lower abdomen this week and an odor to her wound. She has increased eschar and necrosis as well. She is tolerating treatment with Santyl. She has improvement in the density of her left breast and improvement in pain of her left breast as well. She has moderate drainage from her wounds. She has been using warm, moist compresses to both her breast and her abdomen and increased proteion intake. She denies fever, chills. - Physical Exam Vital Signs Temp Pulse Resp BP 98.2 F 85 16 130/79 H 07/16/18 13:25 07/16/18 13:25 07/16/18 13:25 07/16/18 13:25 General: Alert, Oriented x3, Cooperative, No apparent distress HEENT: Atraumatic, Normocephalic Oral: Moist Mucosa Abdomen: Obese Skin: Ulcer/ Wound Wound Measurements and Assessment WC - Nurse 1 - General Ulcer Measurement Start: 07/16/18 13:24 Freq: Status: Active Protocol: Activity Type Activity Date Activity User E-Sign Co-Sign Detail Recorded Client Recorded Date Recorded By Document 07/16/18 13:25 [facility] [id number] 07/16/18 13:38 [facility] 07/16/18 13:25 Wound Center Nurse 1 [Ulcer Assessment] #3- RT ABDOMEN -Combined with other wound No -Current Size (cm) - Length 1.7 -Current Size (cm) - Width 2.1 -Current Size (cm) - Depth 0.1 -Total Square Cm 3.57 -Date of Last Picture (Recall this 07/16/18 field) -Photo Taken Yes -Epithelialization None Present -Tunneling No -Undermining/Tunneling No -Circular Undermining No -Exudate Amt Medium -Exudate Type Serosanguineous -Wound Margin Distinct, Outline Attached -Granulation Amt Small (1-33%) -Granulation Quality Red -Slough/Fibrin Yes -Necrosis Amt Large (67-100%) -Necrotic Tissue Type Eschar -Texture (Gabriela-wound Skin Appearance) Assessed Scarring -Moisture (Gabriela-wound Skin Appearance Assessed ) -Color (Gabriela-wound Skin Appearance) Assessed Erythema -Temperature (Gabriela-wound Skin No Abnormality Appearance) (Pt Warm) -Tenderness on Palpation (Gabriela-wound Yes Skin Appearance) -Ulcer Cleansing Rinsed/ Irrigated with Saline -Foul Odor after Cleansing No -Anesthetic Used 5% Lidocaine Gel #2 right lower abd -Combined with other wound No -Current Size (cm) - Length 4.1 -Current Size (cm) - Width 5.2 -Current Size (cm) - Depth 0.2 -Total Square Cm 21.32 -Photo Taken No -Epithelialization None Present -Tunneling No -Undermining/Tunneling No -Circular Undermining No -Exudate Amt Medium -Exudate Type Serosanguineous -Wound Margin Distinct, Outline Attached -Granulation Amt Medium (34-66%) -Granulation Quality Red -Slough/Fibrin Yes -Necrosis Amt Medium (34-66%) -Necrotic Tissue Type Adherent Slough -Texture (Gabriela-wound Skin Appearance) Assessed Scarring -Moisture (Gabriela-wound Skin Appearance Assessed ) -Color (Gabriela-wound Skin Appearance) Assessed Erythema -Temperature (Gabriela-wound Skin No Abnormality Appearance) (Pt Warm) -Tenderness on Palpation (Gabriela-wound Yes Skin Appearance) -Ulcer Cleansing Rinsed/ Irrigated with Saline -Foul Odor after Cleansing No -Anesthetic Used 5% Lidocaine Gel #1 left breast -Combined with other wound No -Current Size (cm) - Length 4 -Current Size (cm) - Width 4 -Current Size (cm) - Depth 0.2 -Total Square Cm 16 -Photo Taken No -Epithelialization None Present -Tunneling No -Undermining/Tunneling No -Circular Undermining No -Exudate Amt Medium -Exudate Type Serosanguineous -Wound Margin Distinct, Outline Attached -Granulation Amt Medium (34-66%) -Granulation Quality Red -Slough/Fibrin Yes -Necrosis Amt Medium (34-66%) -Necrotic Tissue Type Adherent Slough -Texture (Gabirela-wound Skin Appearance) Assessed Scarring -Moisture (Gabriela-wound Skin Appearance Assessed ) -Color (Gabriela-wound Skin Appearance) Assessed Erythema -Temperature (Gabriela-wound Skin No Abnormality Appearance) (Pt Warm) -Tenderness on Palpation (Gabriela-wound Yes Skin Appearance) -Ulcer Cleansing Rinsed/ Irrigated with Saline -Foul Odor after Cleansing No -Anesthetic Used 5% Lidocaine Gel WC - Nurse 2 - General Ulcer CM Notes Start: 07/16/18 13:24 Freq: Status: Active Protocol: Activity Type Activity Date Activity User E-Sign Co-Sign Detail Recorded Client Recorded Date Recorded By Document 07/16/18 14:21 DV [id number] 07/16/18 14:31 DV 07/16/18 14:21 Wound Center Nurse 2 [Procedure/Treatment] #3- RT ABDOMEN -Time 14:30 -Correct Patient Yes -Correct Side, Site, Position Yes -Correct Procedure No -Procedure Performed No -Wound/Ulcer Outcome Not Healed #2 right lower abd -Time 14:30 -Correct Patient Yes -Correct Side, Site, Position Yes -Correct Procedure No -Procedure Performed No -Wound/Ulcer Outcome Not Healed #1 left breast -Time 14:31 -Correct Patient Yes -Correct Side, Site, Position Yes -Correct Procedure No -Procedure Performed No -Wound/Ulcer Outcome Not Healed [See Physician Procedure note for Specifics] Pain Scale: 0-10 Numeric [Pain] -Is Patient Pain Free? Yes Psych/Mental Status: Normal Affect, Appropriate Debridement Note Post-Debridement Measurements/Treatment RHYS - Nurse 2 - General Ulcer CM Notes Start: 07/16/18 13:24 Freq: Status: Active Protocol: Activity Type Activity Date Activity User E-Sign Co-Sign Detail Recorded Client Recorded Date Recorded By Document 07/16/18 14:21 DV [id number] 07/16/18 14:31 DV 07/16/18 14:21 Wound Center Nurse 2 #3- RT ABDOMEN -Time 14:30 -Correct Patient Yes -Correct Side, Site, Position Yes -Correct Procedure No -Procedure Performed No -Wound/Ulcer Outcome Not Healed #2 right lower abd -Time 14:30 -Correct Patient Yes -Correct Side, Site, Position Yes -Correct Procedure No -Procedure Performed No -Wound/Ulcer Outcome Not Healed #1 left breast -Time 14:31 -Correct Patient Yes -Correct Side, Site, Position Yes -Correct Procedure No -Procedure Performed No -Wound/Ulcer Outcome Not Healed Pain Scale: 0-10 Numeric Is Patient Pain Free? Yes Wound debrided: right abdomen Laterality: Right No debridement was completed today - due to patient declining debridement due to pain - Additional Wound Wound debrided: right lower abdomen Laterality: Right Operative Diagnosis: No debridement completed due to pain - Additional Wound Wound debrided: left breast Laterality: Left Operative Diagnosis: no debridement completed due to pain Assessment/Plan Active Problems (Last Reviewed 07/03/17 @ 15:04 by Marjan Mitchell) Wound of left breast (Chronic) Open wound of right lower quadrant of abdominal wall without penetration into peritoneal cavity (Chronic) Traumatic hematoma of abdominal wall (Chronic) Traumatic hematoma of female breast (Chronic) Cellulitis and abscess of trunk (Acute) Type 2 diabetes mellitus (Chronic) Assessment: traumatic wounds of left breast and right lower abdomen due to hematomas Plan: Keturah's wounds were evaluated today, will have her continue using Santyl daily to her wounds. Wound cultures taken of her right abdomen wound and will start her on doxycycline and flagyl until wound cultures are finalized. Encouraged her to try to offload the areas and increase protein intake. CT of her chest did not show any abscess of her left breast. there were incidental findings of nodules of her thyroid as well as abnormalities of her liver which she was advised to contact her PCP for follow up. Advised her to call or go to ER if increased pain, fever or chills. Will have her follow up in 1 week.
[2018-07-23 13:43] VITALS: BP 121/69; PULSE 78; RESP 18; TEMP 36.6
--- NOTE | 2018-07-23 14:37 | CON.PCM_ITS ---
Problem List (1) Wound of left breast Status: Chronic Qualifiers: Encounter type: subsequent encounter Qualified Code(s): S21.002D - Unspecified open wound of left breast, subsequent encounter Reason for Consult: wound infection Consulted by: Dr. Schafer History of Present Illness: The patient is a 62 year old F with DM and obesity, reports having a 60lb puppy repeatedly jump on her over the course of several weeks starting about 2 months ago. Developed necrosis, pain, drainage, swelling at L breast and RLQ. Referred to wound care, CT done, cx sent, on doxy and flagyl with minimal improvement. No fever or chills. Some nausea. No diarrhea. Went to ED 07/20 due to uncontrolled pain. Full ROS performed and neg except as noted above. She reports anaphylaxis with throat closing due PCN, keflex, and levaquin. Rash with bactrim. Anaphylaxis episodes happened with monotherapy, about 5 years ago. - Medical History Past Medical History (Chronic Problems): Chronic Problems (Last Reviewed 07/03/17 @ 15:04 by Marjan Mitchell) Wound of left breast (Chronic) Open wound of right lower quadrant of abdominal wall without penetration into peritoneal cavity (Chronic) Traumatic hematoma of abdominal wall (Chronic) Traumatic hematoma of female breast (Chronic) Type 2 diabetes mellitus (Chronic) Aortocoronary bypass status (Chronic) CABG x2- DENNIS to LAd, SVG to Diagonal of the LAD 10/31/11 Atherosclerotic heart disease of [place] coronary artery without angina pectoris (Chronic) CABG x2- DENNIS to LAD, SVG to Diagonal of the LAD 10/31/11 Hypertension (Chronic) Hyperlipidemia (Chronic) Tobacco use disorder (Chronic) Morbid obesity (Chronic) Allergies/Adverse Reactions: Allergies cephalexin [From Keflex] Allergy (Severe, Verified 07/20/18 19:34) Rash levofloxacin [From Levaquin] Allergy (Severe, Verified 07/20/18 19:34) Rash niacin Allergy (Severe, Verified 07/20/18 19:34) Rash Penicillins Allergy (Severe, Verified 07/20/18 19:34) Anaphylaxis Sulfa (Sulfonamide Antibiotics) Allergy (Severe, Verified 07/20/18 19:34) Rash citalopram [From Celexa] Adverse Reaction (Severe, Verified 07/20/18 19:34) Rash Estrogens Adverse Reaction (Severe, Verified 07/20/18 19:34) blood clots rosuvastatin [From Crestor] Adverse Reaction (Severe, Verified 07/20/18 19:34) myalgias oral contraceptives Adverse Reaction (Severe, Uncoded 07/03/17 14:59) Unknown Home Medications: Ambulatory Orders Medication Instructions Recorded aspirin 81 mg tablet,delayed 81 mg PO QDAY 07/02/17 release losartan 100 1 tab PO QDAY 07/02/17 mg-hydrochlorothiazide 25 mg tablet metoprolol tartrate 25 mg tablet 25 mg PO BID 07/02/17 sertraline 100 mg tablet 100 mg PO QDAY 07/02/17 simvastatin 20 mg tablet 20 mg PO QPM 07/02/17 lorazepam 0.5 mg tablet 0.25 mg PO Q6H PRN tab 07/03/17 isosorbide mononitrate ER 30 mg 30 mg PO QAM #30 tab 07/08/17 tablet,extended release 24 hr clopidogrel 75 mg tablet 75 mg PO QDAY #90 tab 11/23/17 Bupropion HCl [Bupropion Xl] 300 mg PO DAILY 07/20/18 Doxycycline 100 mg PO BID 07/20/18 Fluconazole [Diflucan] 200 mg PO X1 07/20/18 Nystatin Powder [Mycostatin Powder] 1 applic TOPICAL TID #2 bottle 07/20/18 metroNIDAZOLE [Flagyl] 500 mg PO Q12H 07/20/18 traMADol [Ultram (G)] 50 mg PO Q6H PRN PRN 07/20/18 - Social History Tobacco Use: cigarettes Vital Signs Temp Pulse Resp BP 97.8 F 78 18 121/69 H 07/23/18 13:43 07/23/18 13:43 07/23/18 13:43 07/23/18 13:43 Oxygen Delivery Method Room Air Weight: 119.748 kg Body Mass Index (BMI) 0.1 Microbiology Past 72 Hours 07/16/18 14:30 Gram Stain - Final Wound Abcess - Abdominal Wound Culture - Final Morganella morganii sp morgani Providencia rettgeri Staphylococcus aureus Anaerobic Culture - Final Bacteroides fragilis group Anaerobic cocci - Other Studies Radiology: [] reviewed Other Studies: [] Route of nutrition/ use of supplements: [] Nutritional Intake: [] IV Site: [] Griffith Catheter: [] - Physical Exam General: Alert, Oriented x3, Cooperative, No apparent distress HEENT: Atraumatic, PERRLA, EOMI Neck: Supple, No Nodes Lungs: Clear to auscultation, Normal air movement Cardiovascular: Regular rate, Regular Rhythm, No murmurs Abdomen: Soft, Non Tender, Non-Distended Extremities: Edema Skin: Ulcer/ Wound - L breast and RLQ abd necrotic ulceration with purulence, induration, some redness, pain. - Assessment/Plan Antibiotics: [] Assessment/Plan: [] Active and Suspected Problems (Last Reviewed 07/03/17 @ 15:04 by Marjan Mitchell) Cellulitis and abscess of trunk (Acute) Necrotic infected ulcers on L breast and RLQ abd - wound cx with morganella, mssa, providencia, bacteroides, and anaerobes. On doxy and flagyl without much improvement. H/o anaphylaxis with PCN and levaquin. CT showed no abscess. This is an unusually severe reaction to hematoma from trauma. Recommend surgical referral for I&D and path. No oral options for her morganella. Will arrange for outpt ertapenem with first dose given as a test dose IV (250mg initially, wait 30 minutes in monitored setting, then 750mg and watch for another 30 mins). Ertapenem should have less than 1% chance cross-reactivity. After that dose, plan would be for 9 days of 1gm IM ertapenem at infusion center. Will work on arrangement. Thank you, d/w Dr. Schafer, will follow as needed.
--- NOTE | 2018-07-23 19:16 | PCM.WC.PN ---
(1) Cellulitis and abscess of trunk Status: Acute Current Visit: Yes Code(s): L03.319 - Cellulitis of trunk, unspecified; L02.219 - Cutaneous abscess of trunk, unspecified (2) Wound of left breast Status: Chronic Current Visit: Yes Qualifiers: Encounter type: subsequent encounter Qualified Code(s): S21.002D - Unspecified open wound of left breast, subsequent encounter Code(s): S21.002A - Unspecified open wound of left breast, initial encounter (3) Open wound of right lower quadrant of abdominal wall without penetration into peritoneal cavity Status: Chronic Current Visit: Yes Qualifiers: Encounter type: subsequent encounter Qualified Code(s): S31.103D - Unspecified open wound of abdominal wall, right lower quadrant without penetration into peritoneal cavity, subsequent encounter Code(s): S31.103A - Unspecified open wound of abdominal wall, right lower quadrant without penetration into peritoneal cavity, initial encounter (4) Traumatic hematoma of abdominal wall Status: Chronic Current Visit: Yes Qualifiers: Encounter type: subsequent encounter Qualified Code(s): S30.1XXD - Contusion of abdominal wall, subsequent encounter Code(s): S30.1XXA - Contusion of abdominal wall, initial encounter (5) Traumatic hematoma of female breast Status: Chronic Current Visit: Yes Qualifiers: Encounter type: subsequent encounter Code(s): S20.00XA - Contusion of breast, unspecified breast, initial encounter (6) Type 2 diabetes mellitus Status: Chronic Current Visit: Yes Qualifiers: Diabetes mellitus usp insulin use: unspecified usp insulin use status Diabetes mellitus complication status: with neurologic complications Diabetes mellitus complication detail: with polyneuropathy Qualified Code(s): E11.42 - Type 2 diabetes mellitus with diabetic polyneuropathy Code(s): E11.9 - Type 2 diabetes mellitus without complications Type of Wound Date of Service: 07/23/18 Chief Complaint: open wounds of left breast and right lower abdomen History of Wound: Keturah is a 62 yo woman who presents to the wound center for evaluation and traetment of nonhealing wounds to her left breast and right lower abdomen. She is referred by Dr. Mortensen, her PCP. She was jumped on by her dog 4-6 weeks ago and developed hematomas of her breasts and abdomen and back. The areas developed into open wounds of her left medial breast and right lower abdomen approx. 2 weeks ago. She is on plavix and aspirin for her CAD. She has been using maxi pads to the areas and antibiotic ointment. She completed doxycycline on Thursday for treatment for possible infection. She has moderate to heavy exudate from the wounds and they are painful. She denies fever or chills. Progress of Wound: Keturah is here today for follow up of wounds of her left breast and right lower abdomen. She continues to have significantly increased pain from her lower abdomen this week but less odor to her wound. She has increased eschar and necrosis as well. She is tolerating treatment with Santyl. She continues to have moderate drainage from her wounds. She went to the ER due to pain and was given pain medication and they gave her duoderm patches to use to avoid tearing skin and movement causing pain which has helped some. She is tolerating antibiotic treatment but her wound cultures showed infection with multiple bacteria and due to her allergies and the complicated nature of her infection ID was consulted. Dr. Perea is recommending treatment with Ertepenim and is arranging this. She has been using warm, moist compresses to both her breast and her abdomen and increased protein intake. She denies fever, chills. - Physical Exam Vital Signs Temp Pulse Resp BP 97.8 F 78 18 121/69 H 07/23/18 13:43 07/23/18 13:43 07/23/18 13:43 07/23/18 13:43 General: Alert, Oriented x3, Cooperative, No apparent distress HEENT: Atraumatic, Normocephalic Oral: Moist Mucosa Abdomen: Obese Skin: Ulcer/ Wound Wound Measurements and Assessment WC - Nurse 1 - General Ulcer Measurement Start: 07/16/18 13:24 Freq: Status: Active Protocol: Activity Type Activity Date Activity User E-Sign Co-Sign Detail Recorded Client Recorded Date Recorded By Document 07/23/18 13:43 RB [id number] 07/23/18 13:56 RB 07/23/18 13:43 Wound Center Nurse 1 [Ulcer Assessment] #3- RT ABDOMEN -Combined with other wound No -Current Size (cm) - Length 1.8 -Current Size (cm) - Width 2.3 -Current Size (cm) - Depth 0.6 -Total Square Cm 4.14 -Tunneling No -Undermining/Tunneling No -Circular Undermining No -Exudate Amt Medium -Exudate Type Serosanguineous -Wound Margin Thickened & Rolled Under -Granulation Amt Medium (34-66%) -Granulation Quality [place] -Slough/Fibrin Yes -Necrosis Amt Medium (34-66%) -Necrotic Tissue Type Adherent Slough -Structure Exposed N/A -Texture (Gabriela-wound Skin Appearance) Assessed Friable -Color (Gabriela-wound Skin Appearance) Erythema -Temperature (Gabriela-wound Skin No Abnormality Appearance) (Pt Warm) -Tenderness on Palpation (Gabriela-wound No Skin Appearance) -Ulcer Cleansing Wound Cleanser -Foul Odor after Cleansing Yes -Anesthetic Used 4% Lidocaine Solution 5% Lidocaine Gel #2 right lower abd -Combined with other wound No -Current Size (cm) - Length 4.5 -Current Size (cm) - Width 5.5 -Current Size (cm) - Depth 0.6 -Total Square Cm 24.75 -Tunneling No -Undermining/Tunneling No -Circular Undermining No -Exudate Amt Medium -Exudate Type Serosanguineous -Wound Margin Distinct, Outline Attached -Granulation Amt Medium (34-66%) -Granulation Quality [place] -Slough/Fibrin Yes -Necrosis Amt Medium (34-66%) -Necrotic Tissue Type Adherent Slough -Structure Exposed N/A -Texture (Gabriela-wound Skin Appearance) Assessed -Moisture (Gabriela-wound Skin Appearance Assessed ) -Color (Gabriela-wound Skin Appearance) Assessed Erythema -Temperature (Gabriela-wound Skin No Abnormality Appearance) (Pt Warm) -Tenderness on Palpation (Gabriela-wound No Skin Appearance) -Ulcer Cleansing Wound Cleanser -Foul Odor after Cleansing Yes -Anesthetic Used 4% Lidocaine Solution 5% Lidocaine Gel #1 left breast -Combined with other wound No -Current Size (cm) - Length 4 -Current Size (cm) - Width 4.3 -Current Size (cm) - Depth 0.5 -Total Square Cm 17.2 -Tunneling No -Undermining/Tunneling No -Circular Undermining No -Exudate Amt Medium -Exudate Type Serosanguineous -Wound Margin Distinct, Outline Attached -Granulation Amt Medium (34-66%) -Granulation Quality [place] -Slough/Fibrin Yes -Necrosis Amt Medium (34-66%) -Necrotic Tissue Type Adherent Slough -Structure Exposed N/A -Texture (Gabriela-wound Skin Appearance) Assessed Friable -Moisture (Gabriela-wound Skin Appearance Assessed ) -Color (Gabriela-wound Skin Appearance) Assessed -Temperature (Gabriela-wound Skin No Abnormality Appearance) (Pt Warm) -Tenderness on Palpation (Gabriela-wound No Skin Appearance) -Ulcer Cleansing Wound Cleanser -Foul Odor after Cleansing No -Anesthetic Used 4% Lidocaine Solution 5% Lidocaine Gel WC - Nurse 2 - General Ulcer CM Notes Start: 07/16/18 13:24 Freq: Status: Active Protocol: Activity Type Activity Date Activity User E-Sign Co-Sign Detail Recorded Client Recorded Date Recorded By Document 07/23/18 14:54 DV [id number] 07/23/18 14:56 DV 07/23/18 14:54 Wound Center Nurse 2 [Procedure/Treatment] #3- RT ABDOMEN -Time 14:54 -Correct Patient Yes -Correct Side, Site, Position Yes -Correct Procedure No -Procedure Performed No -Wound/Ulcer Outcome Not Healed #2 right lower abd -Time 14:55 -Correct Patient Yes -Correct Side, Site, Position Yes -Correct Procedure No -Procedure Performed No -Wound/Ulcer Outcome Not Healed #1 left breast -Time 14:55 -Correct Patient Yes -Correct Side, Site, Position Yes -Correct Procedure No -Procedure Performed No -Wound/Ulcer Outcome Not Healed [See Physician Procedure note for Specifics] Pain Scale: 0-10 Numeric [Pain] -Is Patient Pain Free? Yes Psych/Mental Status: Normal Affect, Appropriate Debridement Note Post-Debridement Measurements/Treatment WC - Nurse 2 - General Ulcer CM Notes Start: 07/16/18 13:24 Freq: Status: Active Protocol: Activity Type Activity Date Activity User E-Sign Co-Sign Detail Recorded Client Recorded Date Recorded By Document 07/16/18 14:21 DV [id number] 07/16/18 14:31 DV Document 07/23/18 14:54 DV [id number] 07/23/18 14:56 DV 07/16/18 07/23/18 14:21 14:54 Wound Center Nurse 2 #3- RT ABDOMEN -Time 14:30 14:54 -Correct Patient Yes Yes -Correct Side, Site, Position Yes Yes -Correct Procedure No No -Procedure Performed No No -Wound/Ulcer Outcome Not Healed Not Healed #2 right lower abd -Time 14:30 14:55 -Correct Patient Yes Yes -Correct Side, Site, Position Yes Yes -Correct Procedure No No -Procedure Performed No No -Wound/Ulcer Outcome Not Healed Not Healed #1 left breast -Time 14:31 14:55 -Correct Patient Yes Yes -Correct Side, Site, Position Yes Yes -Correct Procedure No No -Procedure Performed No No -Wound/Ulcer Outcome Not Healed Not Healed Pain Scale: 0-10 Numeric Is Patient Pain Free? Yes Yes No debridement was completed today Assessment/Plan Active Problems (Last Reviewed 07/03/17 @ 15:04 by Marjan Mitchell) Wound of left breast (Chronic) Open wound of right lower quadrant of abdominal wall without penetration into peritoneal cavity (Chronic) Traumatic hematoma of abdominal wall (Chronic) Traumatic hematoma of female breast (Chronic) Cellulitis and abscess of trunk (Acute) Type 2 diabetes mellitus (Chronic) Assessment: traumatic wounds of left breast and right lower abdomen due to hematomas Plan: Zaid wounds were evaluated today. No debridement was performed as she was in intense pain and declined debridement. She would benefit from surgical debridement and was referred to see Dr. Lopez or Tammy in consultation regarding this possibility under anesthesia as she is unable to tolerate this in clinic. Will have her continue using Santyl daily to her wounds. Continue her on doxycycline and flagyl until she is able to start ertepenim. Encouraged her to try to offload the areas and increase protein intake. CT of her chest did not show any abscess of her left breast. There were incidental findings of nodules of her thyroid as well as abnormalities of her liver which she is having US to further evaluate. Advised her to call or go to ER if increased pain, fever or chills. Will have her follow up in 1 week.
[2018-07-30 11:06] VITALS: BP 120/69; PULSE 78; RESP 18; TEMP 36
--- NOTE | 2018-07-30 12:46 | PN.PCM_ITS ---
(1) Cellulitis and abscess of trunk Status: Acute Current Visit: Yes Code(s): L03.319 - Cellulitis of trunk, unspecified; L02.219 - Cutaneous abscess of trunk, unspecified (2) Wound of left breast Status: Acute Current Visit: Yes Qualifiers: Encounter type: subsequent encounter Qualified Code(s): S21.002D - Unspecified open wound of left breast, subsequent encounter Code(s): S21.002A - Unspecified open wound of left breast, initial encounter (3) Open wound of right lower quadrant of abdominal wall without penetration into peritoneal cavity Status: Chronic Current Visit: Yes Qualifiers: Encounter type: subsequent encounter Qualified Code(s): S31.103D - Unspecified open wound of abdominal wall, right lower quadrant without penetration into peritoneal cavity, subsequent encounter Code(s): S31.103A - Unspecified open wound of abdominal wall, right lower quadrant without penetration into peritoneal cavity, initial encounter (4) Traumatic hematoma of abdominal wall Status: Chronic Current Visit: Yes Qualifiers: Encounter type: subsequent encounter Qualified Code(s): S30.1XXD - Contusion of abdominal wall, subsequent encounter Code(s): S30.1XXA - Contusion of abdominal wall, initial encounter (5) Traumatic hematoma of female breast Status: Chronic Current Visit: Yes Qualifiers: Encounter type: subsequent encounter Code(s): S20.00XA - Contusion of breast, unspecified breast, initial encounter (6) Type 2 diabetes mellitus Status: Chronic Current Visit: Yes Qualifiers: Diabetes mellitus senior living insulin use: unspecified senior living insulin use status Diabetes mellitus complication status: with neurologic complications Diabetes mellitus complication detail: with polyneuropathy Qualified Code(s): E11.42 - Type 2 diabetes mellitus with diabetic polyneuropathy Code(s): E11.9 - Type 2 diabetes mellitus without complications Type of Wound Date of Service: 07/30/18 Chief Complaint: open wounds of left breast and right lower abdomen History of Wound: Keturah is a 62 yo woman who presents to the wound center for evaluation and traetment of nonhealing wounds to her left breast and right lower abdomen. She is referred by Dr. Mortensen, her PCP. She was jumped on by her dog 4-6 weeks ago and developed hematomas of her breasts and abdomen and back. The areas developed into open wounds of her left medial breast and right lower abdomen approx. 2 weeks ago. She is on plavix and aspirin for her CAD. She has been using maxi pads to the areas and antibiotic ointment. She completed doxycycline on Thursday for treatment for possible infection. She has moderate to heavy exudate from the wounds and they are painful. She denies fever or chills. Progress of Wound: Keturah is here today for follow up of wounds of her left breast and right lower abdomen. She continues to have significantly increased pain from her lower abdomen this week and increased drainage. She has increased eschar and necrosis as well. She is tolerating treatment with Santyl. She continues to have heavy drainage from her wounds. She is using duoderm patches to use to avoid tearing skin and movement causing pain which has helped some. She is tolerating antibiotic treatment but her wound cultures showed infection with multiple bacteria and due to her allergies and the complicated nature of her infection ID was consulted. Dr. Perea is recommending treatment with Ertepenim and is arranging this. She has been using warm, moist compresses to both her breast and her abdomen and increased protein intake. She denies fever, chills. - Physical Exam Vital Signs Temp Pulse Resp BP 96.8 F L 78 18 120/69 07/30/18 11:06 07/30/18 11:06 07/30/18 11:06 07/30/18 11:06 General: Alert, Oriented x3, Cooperative, No apparent distress HEENT: Atraumatic, Normocephalic Oral: Moist Mucosa Abdomen: Obese Skin: Ulcer/ Wound Wound Measurements and Assessment WC - Nurse 1 - General Ulcer Measurement Start: 07/16/18 13:24 Freq: Status: Active Protocol: Activity Type Activity Date Activity User E-Sign Co-Sign Detail Recorded Client Recorded Date Recorded By Document 07/30/18 11:06 RB [id number] 07/30/18 11:32 RB 07/30/18 11:06 Wound Center Nurse 1 [Ulcer Assessment] #3- RT ABDOMEN -Combined with other wound No -Current Size (cm) - Length 1.7 -Current Size (cm) - Width 2.5 -Current Size (cm) - Depth 0.2 -Total Square Cm 4.25 -Epithelialization None Present -Tunneling No -Undermining/Tunneling No -Circular Undermining No -Exudate Amt Medium -Exudate Type Serosanguineous -Wound Margin Thickened & Rolled Under -Granulation Amt Medium (34-66%) -Granulation Quality [place] -Slough/Fibrin Yes -Necrosis Amt Large (67-100%) -Necrotic Tissue Type Adherent Slough -Structure Exposed N/A -Texture (Gabriela-wound Skin Appearance) Assessed, Friable -Moisture (Gabriela-wound Skin Appearance Assessed ) -Color (Gabriela-wound Skin Appearance) Assessed -Temperature (Gabriela-wound Skin No Abnormality Appearance) (Pt Warm) -Tenderness on Palpation (Gabriela-wound No Skin Appearance) -Ulcer Cleansing Rinsed/ Irrigated with Saline -Foul Odor after Cleansing No -Anesthetic Used 4% Lidocaine Solution,5% Lidocaine Gel #2 right lower abd -Combined with other wound No -Current Size (cm) - Length 4.8 -Current Size (cm) - Width 4.5 -Current Size (cm) - Depth 1 -Total Square Cm 21.60 -Epithelialization None Present -Tunneling No -Undermining/Tunneling No -Circular Undermining No -Exudate Amt Medium -Exudate Type Serosanguineous -Wound Margin Thickened & Rolled Under -Granulation Amt Medium (34-66%) -Granulation Quality [place] -Slough/Fibrin Yes -Necrosis Amt Large (67-100%) -Necrotic Tissue Type Adherent Slough -Structure Exposed N/A -Texture (Gabriela-wound Skin Appearance) Assessed, Friable -Moisture (Gabriela-wound Skin Appearance Assessed ) -Color (Gabriela-wound Skin Appearance) Assessed -Temperature (Gabriela-wound Skin No Abnormality Appearance) (Pt Warm) -Tenderness on Palpation (Gabriela-wound No Skin Appearance) -Ulcer Cleansing Wound Cleanser -Foul Odor after Cleansing No -Anesthetic Used 4% Lidocaine Solution,5% Lidocaine Gel #1 left breast -Combined with other wound No -Current Size (cm) - Length 4.2 -Current Size (cm) - Width 5 -Current Size (cm) - Depth 0.5 -Total Square Cm 21.0 -Tunneling No -Undermining/Tunneling No -Circular Undermining No -Exudate Amt Medium -Exudate Type Serosanguineous -Wound Margin Thickened & Rolled Under -Granulation Amt Medium (34-66%) -Granulation Quality [place] -Necrosis Amt Large (67-100%) -Necrotic Tissue Type Adherent Slough -Structure Exposed N/A -Texture (Gabriela-wound Skin Appearance) Assessed, Friable -Moisture (Gabriela-wound Skin Appearance Assessed ) -Color (Gabriela-wound Skin Appearance) Assessed -Temperature (Gabriela-wound Skin No Abnormality Appearance) (Pt Warm) -Tenderness on Palpation (Gabriela-wound No Skin Appearance) -Ulcer Cleansing Wound Cleanser -Foul Odor after Cleansing No -Anesthetic Used 4% Lidocaine Solution,5% Lidocaine Gel WC - Nurse 2 - General Ulcer CM Notes Start: 07/16/18 13:24 Freq: Status: Active Protocol: Activity Type Activity Date Activity User E-Sign Co-Sign Detail Recorded Client Recorded Date Recorded By Document 07/30/18 11:37 AN [id number] 07/30/18 11:48 AN 07/30/18 11:37 Wound Center Nurse 2 [Procedure/Treatment] #3- RT ABDOMEN -Time 11:46 -Correct Patient Yes -Correct Side, Site, Position Yes -Correct Procedure Yes -Procedure Performed No -Post Debridement Size (cm) - Length 1.7 -Post Debridement Size (cm) - Width 2.5 -Post Debridement Size (cm) - Depth 0.2 -Total Square Cm 4.25 -Wound/Ulcer Outcome Not Healed -Ulcer Cleansing Rinsed/ Irrigated with Saline -Foul Odor after Cleansing No -Bioengineered Tissue No #2 right lower abd -Time 11:46 -Correct Patient Yes -Correct Side, Site, Position Yes -Correct Procedure Yes -Procedure Performed No -Post Debridement Size (cm) - Length 4.8 -Post Debridement Size (cm) - Width 4.5 -Post Debridement Size (cm) - Depth 1.0 -Total Square Cm 21.60 -Wound/Ulcer Outcome Not Healed -Ulcer Cleansing Rinsed/ Irrigated with Saline -Treatment Response Procedure Tolerated Well #1 left breast -Time 11:47 -Correct Patient Yes -Correct Side, Site, Position Yes -Correct Procedure Yes -Procedure Performed No -Type of Procedure Debridement -Clinical Debridement Subcutaneous -Post Debridement Size (cm) - Length 4.2 -Post Debridement Size (cm) - Width 5.0 -Post Debridement Size (cm) - Depth 0.5 -Total Square Cm 21.00 -Wound/Ulcer Outcome Not Healed -Treatment Response Procedure Tolerated Well [See Physician Procedure note for Specifics] Pain Scale: 0-10 Numeric [Pain] -Is Patient Pain Free? Yes Psych/Mental Status: Normal Affect, Appropriate Debridement Note Post-Debridement Measurements/Treatment WC - Nurse 2 - General Ulcer CM Notes Start: 07/16/18 13:24 Freq: Status: Active Protocol: Activity Type Activity Date Activity User E-Sign Co-Sign Detail Recorded Client Recorded Date Recorded By Document 07/16/18 14:21 DV [id number] 07/16/18 14:31 DV Document 07/23/18 14:54 DV [id number] 07/23/18 14:56 DV Document 07/30/18 11:37 AN [id number] 07/30/18 11:48 AN 07/16/18 07/23/18 07/30/18 14:21 14:54 11:37 Wound Center Nurse 2 #3- RT ABDOMEN -Time 14:30 14:54 11:46 -Correct Patient Yes Yes Yes -Correct Side, Site, Position Yes Yes Yes -Correct Procedure No No Yes -Procedure Performed No No No -Post Debridement Size (cm) - Length 1.7 -Post Debridement Size (cm) - Width 2.5 -Post Debridement Size (cm) - Depth 0.2 -Total Square Cm 4.25 -Wound/Ulcer Outcome Not Healed Not Healed Not Healed -Ulcer Cleansing Rinsed/ Irrigated with Saline -Foul Odor after Cleansing No -Bioengineered Tissue No #2 right lower abd -Time 14:30 14:55 11:46 -Correct Patient Yes Yes Yes -Correct Side, Site, Position Yes Yes Yes -Correct Procedure No No Yes -Procedure Performed No No No -Post Debridement Size (cm) - Length 4.8 -Post Debridement Size (cm) - Width 4.5 -Post Debridement Size (cm) - Depth 1.0 -Total Square Cm 21.60 -Wound/Ulcer Outcome Not Healed Not Healed Not Healed -Ulcer Cleansing Rinsed/ Irrigated with Saline -Treatment Response Procedure Tolerated Well #1 left breast -Time 14: 14:55 11:47 -Correct Patient Yes Yes Yes -Correct Side, Site, Position Yes Yes Yes -Correct Procedure No No Yes -Procedure Performed No No No -Type of Procedure Debridement -Clinical Debridement Subcutaneous -Post Debridement Size (cm) - Length 4.2 -Post Debridement Size (cm) - Width 5.0 -Post Debridement Size (cm) - Depth 0.5 -Total Square Cm 21.00 -Wound/Ulcer Outcome Not Healed Not Healed Not Healed -Treatment Response Procedure Tolerated Well Pain Scale: 0-10 Numeric Is Patient Pain Free? Yes Yes Yes Wound debrided: right abdomen Laterality: Right No debridement was completed today - Additional Wound Wound debrided: right lower abdomen Laterality: Right Operative Diagnosis: no debridement completed today - Additional Wound Wound debrided: left breast Laterality: Left Operative Diagnosis: no debridement completed today Assessment/Plan Active Problems (Last Reviewed 07/03/17 @ 15:04 by Marjan Mitchell) Wound of left breast (Acute) Open wound of right lower quadrant of abdominal wall without penetration into peritoneal cavity (Chronic) Traumatic hematoma of abdominal wall (Chronic) Traumatic hematoma of female breast (Chronic) Cellulitis and abscess of trunk (Acute) Type 2 diabetes mellitus (Chronic) Assessment: traumatic wounds of left breast and right lower abdomen due to hematomas Plan: Keturah's wounds were evaluated today. No debridement was performed as she was in intense pain and declined debridement. She would benefit from surgical debridement and was referred to see Dr. Lopez or Tammy in consultation regardin g this possibility under anesthesia as she is unable to tolerate this in clinic, this is scheduled for 08/02/18. Will have her continue using Santyl daily to her wounds. She will start Ertapanem today. Encouraged her to try to offload the areas and increase protein intake. CT of her chest did not show any abscess of her left breast. There were incidental findings of nodules of her thyroid as well as abnormalities of her liver which she is having US to further evaluate. Advised her to call or go to ER if increased pain, fever or chills. Will have her follow up in 1 week.
[2018-08-02 11:37] VITALS: BP 138/77; PULSE 83; RESP 18; TEMP 36.1
--- NOTE | 2018-08-02 16:15 | PCM.WC.PN ---
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 History of Wound: The patient is a 62 year old F who had trauma to her left medial breast and right lower abdominal wall from her dog jumping on her repeatedly about 2 months ago. Developed painful, red, necrotic ulcers in these areas. CT Chest on 07/14/18 showed no breast abscesses or suspicious masses. It showed minimal cutaneous thickening along the medial aspect of the left breast. Neither a draining wound or underlying breast pathology are apparent, however. Wound culture on 07/16/18 showed Morganella morganii, Providencia rettgeri, Staphylococcus aureus, Bacteroides fragilis, and Anaerobic cocci. She was started on outpatient IM Ertapenem. Today she complains of increasing pain in her left breast and right lower abdominal wall wounds. She has necrotic ulcerations in her left medial breast and right lower abdominal wall. She has also noticed surrounding redness and increasing tenderness. She denies fever at home. Her HgbA1c from 06/19/18 was 6.1. Progress of Wound: Worsened with increasing necrosis and drainage. - Physical Exam Vital Signs Temp Pulse Resp BP 96.9 F L 83 18 138/77 H 08/02/18 11:37 08/02/18 11:37 08/02/18 11:37 08/02/18 11:37 Wound Measurements and Assessment WC - Nurse 1 - General Ulcer Measurement Start: 07/16/18 13:24 Freq: Status: Active Protocol: Activity Type Activity Date Activity User E-Sign Co-Sign Detail Recorded Client Recorded Date Recorded By Document 08/02/18 11:37 DV [id number] 08/02/18 12:16 DV 08/02/18 11:37 Wound Center Nurse 1 [Ulcer Assessment] #4 Left Lower Abdomen -Combined with other wound No -Current Size (cm) - Length 0.5 -Current Size (cm) - Width 0.7 -Current Size (cm) - Depth 0.1 -Total Square Cm 0.35 -Date of Last Picture (Recall this 08/02/18 field) -Photo Taken Yes -Epithelialization None Present -Tunneling No -Undermining/Tunneling No -Circular Undermining No -Classification - Thickness Full Thickness without Exposed Support Structure -Exudate Amt Medium -Exudate Type Serosanguineous -Wound Margin Flat & Intact -Granulation Amt None Present (0 %) -Granulation Quality N/A -Slough/Fibrin Yes -Necrosis Amt Large (67-100%) -Necrotic Tissue Type Adherent Slough -Structure Exposed None/Limited to Skin Breakdown -Texture (Gabriela-wound Skin Appearance) Assessed,Rash -Moisture (Gabriela-wound Skin Appearance Assessed, ) Weeping -Color (Gabriela-wound Skin Appearance) Assessed, Erythema -Temperature (Gabriela-wound Skin No Abnormality Appearance) (Pt Warm) #3- RIGHT LOWER ABDOMEN- SUPERIOR -Combined with other wound No -Current Size (cm) - Length 2.7 -Current Size (cm) - Width 1.6 -Current Size (cm) - Depth 0.1 -Total Square Cm 4.32 -Photo Taken No -Epithelialization None Present -Tunneling No -Undermining/Tunneling No -Circular Undermining No -Exudate Amt Large -Exudate Type Yellow/Green -Wound Margin Indistinct, Non -Visible -Granulation Amt None Present (0 %) -Granulation Quality N/A -Slough/Fibrin No -Necrosis Amt Large (67-100%) -Necrotic Tissue Type Adherent Slough -Structure Exposed Fat Layer Exposed,None/ Limited to Skin Breakdown -Texture (Gabriela-wound Skin Appearance) Assessed, Localized Edema ,Scarring -Moisture (Gabriela-wound Skin Appearance Assessed, ) Weeping -Color (Gabriela-wound Skin Appearance) Assessed, Erythema -Temperature (Gabriela-wound Skin No Abnormality Appearance) (Pt Warm) -Tenderness on Palpation (Gabriela-wound Yes Skin Appearance) -Ulcer Cleansing Rinsed/ Irrigated with Saline -Foul Odor after Cleansing Yes -Anesthetic Used 4% Lidocaine Solution,5% Lidocaine Gel #2 RIGHT LOWER ABD- INFERIOR -Combined with other wound No -Current Size (cm) - Length 5.1 -Current Size (cm) - Width 3.7 -Current Size (cm) - Depth 1.0 -Total Square Cm 18.87 -Photo Taken No -Tunneling No -Undermining/Tunneling No -Circular Undermining No -Exudate Amt Large -Exudate Type Yellow/Green -Wound Margin Indistinct, Non -Visible -Granulation Amt None Present (0 %) -Granulation Quality N/A -Slough/Fibrin No -Necrosis Amt Large (67-100%) -Necrotic Tissue Type Adherent Slough -Structure Exposed Fat Layer Exposed,None/ Limited to Skin Breakdown -Texture (Gabriela-wound Skin Appearance) Assessed, Localized Edema ,Scarring,Rash -Moisture (Gabriela-wound Skin Appearance Assessed, ) Weeping -Color (Gabriela-wound Skin Appearance) Assessed, Erythema -Temperature (Gabriela-wound Skin No Abnormality Appearance) (Pt Warm) -Tenderness on Palpation (Gabriela-wound Yes Skin Appearance) -Ulcer Cleansing SOAP -Foul Odor after Cleansing Yes -Anesthetic Used 4% Lidocaine Solution,5% Lidocaine Gel #1 left breast -Combined with other wound No -Current Size (cm) - Length 5.5 -Current Size (cm) - Width 5.5 -Current Size (cm) - Depth 0.5 -Total Square Cm 30.25 -Photo Taken No -Epithelialization None Present -Tunneling No -Undermining/Tunneling No -Circular Undermining No -Classification - Thickness Full Thickness without Exposed Support Structure -Wound Margin Indistinct, Non -Visible -Granulation Amt None Present (0 %) -Granulation Quality N/A -Necrosis Amt Large (67-100%) -Necrotic Tissue Type Adherent Slough -Structure Exposed None/Limited to Skin Breakdown -Texture (Gabriela-wound Skin Appearance) Assessed, Localized Edema ,Scarring,Rash -Moisture (Gabriela-wound Skin Appearance Assessed, ) Weeping -Color (Gabriela-wound Skin Appearance) Assessed, Erythema -Temperature (Gabriela-wound Skin No Abnormality Appearance) (Pt Warm) -Tenderness on Palpation (Gabriela-wound Yes Skin Appearance) -Ulcer Cleansing Rinsed/ Irrigated with Saline -Foul Odor after Cleansing Yes -Anesthetic Used 4% Lidocaine Solution,5% Lidocaine Gel WC - Nurse 2 - General Ulcer CM Notes Start: 07/16/18 13:24 Freq: Status: Active Protocol: Activity Type Activity Date Activity User E-Sign Co-Sign Detail Recorded Client Recorded Date Recorded By Document 08/02/18 13:05 BILLIE [id number] 08/02/18 13:09 BILLIE 08/02/18 13:05 Wound Center Nurse 2 [Procedure/Treatment] #4 Left Lower Abdomen -Correct Patient No -Correct Side, Site, Position No -Correct Procedure No -Procedure Performed No #3- RIGHT LOWER ABDOMEN- SUPERIOR -Correct Patient No -Correct Side, Site, Position No -Correct Procedure No -Procedure Performed No #2 RIGHT LOWER ABD- INFERIOR -Correct Patient No -Correct Side, Site, Position No -Correct Procedure No -Procedure Performed No #1 left breast -Correct Patient No -Correct Side, Site, Position No -Correct Procedure No -Procedure Performed No [See Physician Procedure note for Specifics] Pain Scale: 0-10 Numeric [Pain] -Is Patient Pain Free? Yes Debridement Note Post-Debridement Measurements/Treatment WC - Nurse 2 - General Ulcer CM Notes Start: 07/16/18 13:24 Freq: Status: Active Protocol: Activity Type Activity Date Activity User E-Sign Co-Sign Detail Recorded Client Recorded Date Recorded By Document 07/16/18 14:21 DV [id number] 07/16/18 14:31 DV Document 07/23/18 14:54 DV [id number] 07/23/18 14:56 DV Document 07/30/18 11:37 AN [id number] 07/30/18 11:48 AN Document 08/02/18 13:05 JF [email or web address] 08/02/18 13:09 JF 07/16/18 07/23/18 07/30/18 14:21 14:54 11:37 Wound Center Nurse 2 #4 Left Lower Abdomen -Correct Patient -Correct Side, Site, Position -Correct Procedure -Procedure Performed #3- RIGHT LOWER ABDOMEN- SUPERIOR -Time 14:30 14:54 11:46 -Correct Patient Yes Yes Yes -Correct Side, Site, Position Yes Yes Yes -Correct Procedure No No Yes -Procedure Performed No No No -Post Debridement Size (cm) - Length 1.7 -Post Debridement Size (cm) - Width 2.5 -Post Debridement Size (cm) - Depth 0.2 -Total Square Cm 4.25 -Wound/Ulcer Outcome Not Healed Not Healed Not Healed -Ulcer Cleansing Rinsed/ Irrigated with Saline -Foul Odor after Cleansing No -Bioengineered Tissue No #2 RIGHT LOWER ABD- INFERIOR -Time 14:30 14:55 11:46 -Correct Patient Yes Yes Yes -Correct Side, Site, Position Yes Yes Yes -Correct Procedure No No Yes -Procedure Performed No No No -Post Debridement Size (cm) - Length 4.8 -Post Debridement Size (cm) - Width 4.5 -Post Debridement Size (cm) - Depth 1.0 -Total Square Cm 21.60 -Wound/Ulcer Outcome Not Healed Not Healed Not Healed -Ulcer Cleansing Rinsed/ Irrigated with Saline -Treatment Response Procedure Tolerated Well #1 left breast -Time 14:31 14:55 11:47 -Correct Patient Yes Yes Yes -Correct Side, Site, Position Yes Yes Yes -Correct Procedure No No Yes -Procedure Performed No No No -Type of Procedure Debridement -Clinical Debridement Subcutaneous -Post Debridement Size (cm) - Length 4.2 -Post Debridement Size (cm) - Width 5.0 -Post Debridement Size (cm) - Depth 0.5 -Total Square Cm 21.00 -Wound/Ulcer Outcome Not Healed Not Healed Not Healed -Treatment Response Procedure Tolerated Well Pain Scale: 0-10 Numeric Is Patient Pain Free? Yes Yes Yes 08/02/18 13:05 Wound Center Nurse 2 #4 Left Lower Abdomen -Correct Patient No -Correct Side, Site, Position No -Correct Procedure No -Procedure Performed No #3- RIGHT LOWER ABDOMEN- SUPERIOR -Time -Correct Patient No -Correct Side, Site, Position No -Correct Procedure No -Procedure Performed No -Post Debridement Size (cm) - Length -Post Debridement Size (cm) - Width -Post Debridement Size (cm) - Depth -Total Square Cm -Wound/Ulcer Outcome -Ulcer Cleansing -Foul Odor after Cleansing -Bioengineered Tissue #2 RIGHT LOWER ABD- INFERIOR -Time -Correct Patient No -Correct Side, Site, Position No -Correct Procedure No -Procedure Performed No -Post Debridement Size (cm) - Length -Post Debridement Size (cm) - Width -Post Debridement Size (cm) - Depth -Total Square Cm -Wound/Ulcer Outcome -Ulcer Cleansing -Treatment Response #1 left breast -Time -Correct Patient No -Correct Side, Site, Position No -Correct Procedure No -Procedure Performed No -Type of Procedure -Clinical Debridement -Post Debridement Size (cm) - Length -Post Debridement Size (cm) - Width -Post Debridement Size (cm) - Depth -Total Square Cm -Wound/Ulcer Outcome -Treatment Response Pain Scale: 0-10 Numeric Is Patient Pain Free? Yes Wound debrided: #1 Left breast. Laterality: Left Wound Grade/Stage: 2. No debridement was completed today - the patient is being admitted for IV antibiotics and operative debridement. - Additional Wound Wound debrided: #2 Right lower abdominal wall. Laterality: Right Wound Grade/Stage: 2. Patient tolerated procedure: - - the patient is being admitted for IV antibiotics and operative debridement. Assessment/Plan Assessment: 1. 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 2. Nonhealing necrotizing infected diabetic hematoma ulcer abscess right lower abdominal wall. 3. Hematoma left medial breast, sequela. 4. Hematoma right lower abdominal wall, sequela. 5. Diabetes mellitus. 6. Smoker. Plan: Recommend going to hospital for admission. Will start IV antibiotics operative intervention with incision and drainage of the abscess and excisional debridement of necrotizing soft tissue infection. Due to the extensive nature of the necrotizing soft tissue infection, a partial mastectomy may be necessary along with an abdominal panniculectomy. Will leave the wounds open and begin postop wound care with the [facility]. Tissue will be sent to Pathology for analysis to rule out carcinoma and to Microbiology for culture. A positive culture may necessitate antibiotic modification. She had been getting Ertapenem IM as an outpatient, and we will continue that. Will consult Infectious Diseases to help with antibiotic management. 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 Surgery will be done tomorrow under general anesthesia. Will also consult Hospitalist Group to help with medical management. Anticipate increased metabolic demands from the infection and from the surgery. Will check a Prealbumin and encourage nutritional supplementation with protein to help the healing process. After discharge, will followup at the Wound Center. If there is a plateau in the healing process, then delayed closure can be done with skin grafting or complex secondary wound closure. For the left breast wound, secondary wound closure with an oncoplastic type reconstruction may be necessary. Also anticipate the left breast becoming smaller than the right breast after controlling the infection. Further breast reconstruction surgery may be necessary on the right breast for symmetry. Patient was informed of the risks and complications of the procedure including alternatives to surgery. These were discussed with the patient personally. Patient voices understanding and wishes to proceed. She knows the wounds will be left open for a while until the infection is controlled, and she knows her left breast will be smaller than her right breast after controlling the infection. She voices understanding and wishes to proceed. Encouraged patient to stop smoking as it may have deleterious effects on wound healing.
== END 2018-08-08 23:59 ==
LOC: WC 11:00
PROVIDERS: Family Provider Family Medicine; PCP Family Medicine; Visit Provider Family Medicine
DX: S20.02XS Contusion of left breast, sequela (principal); S30.1XXS Contusion of abdominal wall, sequela; S31.103S Unspecified open wound of abdominal wall, right lower quadrant without penetration into peritoneal cavity, sequela; S21.002S Unspecified open wound of left breast, sequela; W54.1XXS Struck by dog, sequela; Z95.1 Presence of aortocoronary bypass graft; I25.10 Atherosclerotic heart disease of native coronary artery without angina pectoris; E66.01 Morbid (severe) obesity due to excess calories; Z71.3 Dietary counseling and surveillance; E78.5 Hyperlipidemia, unspecified; E11.42 Type 2 diabetes mellitus with diabetic polyneuropathy; Z79.02 Long term (current) use of antithrombotics/antiplatelets; Z79.82 Long term (current) use of aspirin
CPT/HCPCS: 87070; 87075; 87076; 87077; 87186; 87205; 97602; 99202; 99213; 99214; G0463

== ENCOUNTER 2018-08-02 15:13 | Inpatient (IN) | payer OTHER, SELFPAY ==
[2017-07-08 11:20] VITALS: BMI 52.1
[2018-08-02 15:13] VITALS: BMI 48.8
[2018-08-02 15:37] VITALS: BMI 47.2; BMI 47.3
[2018-08-02 15:39] VITALS: BP 134/61; PULSE 88; RESP 20; TEMP 36.4; O2SAT 92
--- NOTE | 2018-08-02 16:52 | CON.PCM_ITS ---
<Ilda Swan - Last Filed: 08/02/18 17:22> Problem List (1) Wound of left breast Status: Acute (2) Open wound of right lower quadrant of abdominal wall without penetration into peritoneal cavity Status: Chronic (3) Traumatic hematoma of abdominal wall Status: Chronic (4) Traumatic hematoma of female breast Status: Chronic (5) Cellulitis and abscess of trunk Status: Acute (6) Old myocardial infarction Status: Chronic (7) Abnormal stress test Status: Chronic (8) Type 2 diabetes mellitus Status: Chronic (9) Aortocoronary bypass status Status: Chronic Comment: CABG x2- DENNIS to LAd, SVG to Diagonal of the LAD 10/31/11 (10) Atherosclerotic heart disease of [place] coronary artery without angina pectoris Status: Chronic Comment: CABG x2- DENNIS to LAD, SVG to Diagonal of the LAD 10/31/11 (11) Hypertension Status: Chronic (12) Hyperlipidemia Status: Chronic (13) Tobacco use disorder Status: Chronic (14) Morbid obesity Status: Chronic Reason for Consult Date of Consultation: 08/02/18 Reason for Consultation: Medical management. History of Present Illness: The patient is a 62 year old F admitted by Dr. Lopez due to left breast and right abdominal wounds. Patient reports her dog jumped on her at the end of May and her left breast and right abdomen developed hematomas which then became infected. She attempted to manage on her own by applying antibiotic ointment and covering with maxipads. However they worsened and she was referred by PCP to wound center. She was seen at wound center today and was referred to the hospital for surgical debridement of wounds. She denies fever, chills. Complains of severe pain of the wound areas. Reports purulent drainage and foul smell. She reports she has been receiving IM ertapenem with last dose a few days ago. Her past medical history includes CAD status post CABG, hypertension, hyperlipidemia, type 2 diabetes mellitus, tobacco dependence, morbid obesity, depression/anxiety. Past Medical History Past Medical History (Chronic Problems): Chronic Problems (Last Reviewed 07/03/17 @ 15:04 by Marjan Mitchell) Open wound of right lower quadrant of abdominal wall without penetration into peritoneal cavity (Chronic) Traumatic hematoma of abdominal wall (Chronic) Traumatic hematoma of female breast (Chronic) Old myocardial infarction (Chronic) Abnormal stress test (Chronic) Type 2 diabetes mellitus (Chronic) Aortocoronary bypass status (Chronic) CABG x2- DENNIS to LAd, SVG to Diagonal of the LAD 10/31/11 Atherosclerotic heart disease of [place] coronary artery without angina pectoris (Chronic) CABG x2- DENNIS to LAD, SVG to Diagonal of the LAD 10/31/11 Hypertension (Chronic) Hyperlipidemia (Chronic) Tobacco use disorder (Chronic) Morbid obesity (Chronic) Medical History: Medical History (Last Reviewed 07/03/17 @ 15:04 by Marjan Mitchell) Old myocardial infarction (Chronic) I25.2 Abnormal stress test (Chronic) R94.39 Type 2 diabetes mellitus (Chronic) E11.9 Atherosclerotic heart disease of [place] coronary artery without angina pectoris (Chronic) I25.10 CABG x2- DENNIS to LAD, SVG to Diagonal of the LAD 10/31/11 Hypertension (Chronic) I10 Hyperlipidemia (Chronic) E78.5 Tobacco use disorder (Chronic) F17.200 Morbid obesity (Chronic) E66.01 Anxiety state F41.1 Encephalitis G04.90 as a child History of DVT (deep vein thrombosis) Z86.718 COPD (chronic obstructive pulmonary disease) J44.9 Diverticulosis K57.90 History of uterine cancer Z85.42 Allergies cephalexin [From Keflex] Allergy (Severe, Verified 07/30/18 13:50) Rash levofloxacin [From Levaquin] Allergy (Severe, Verified 07/30/18 13:50) Rash niacin Allergy (Severe, Verified 07/30/18 13:50) Rash Penicillins Allergy (Severe, Verified 07/30/18 13:50) Anaphylaxis Sulfa (Sulfonamide Antibiotics) Allergy (Severe, Verified 07/30/18 13:50) Rash citalopram [From Celexa] Adverse Reaction (Severe, Verified 07/30/18 13:50) Rash Estrogens Adverse Reaction (Severe, Verified 07/30/18 13:50) blood clots rosuvastatin [From Crestor] Adverse Reaction (Severe, Verified 07/30/18 13:50) myalgias oral contraceptives Adverse Reaction (Severe, Uncoded 07/30/18 13:50) Unknown Home Medications: Ambulatory Orders Medication Instructions Recorded aspirin 81 mg tablet,delayed 81 mg PO QDAY 07/02/17 release losartan 100 1 tab PO DAILY 07/02/17 mg-hydrochlorothiazide 25 mg tablet metoprolol tartrate 25 mg tablet 25 mg PO BID 07/02/17 sertraline 100 mg tablet 100 mg PO QDAY 07/02/17 simvastatin 20 mg tablet 20 mg PO QPM 07/02/17 lorazepam 0.5 mg tablet 0.25 mg PO Q6H PRN tab 07/03/17 isosorbide mononitrate ER 30 mg 30 mg PO QAM #30 tab 07/08/17 tablet,extended release 24 hr clopidogrel 75 mg tablet 75 mg PO QDAY #90 tab 11/23/17 Bupropion HCl [Bupropion Xl] 300 mg PO DAILY 07/20/18 Nystatin Powder [Mycostatin Powder] 1 applic TOPICAL TID #2 bottle 07/20/18 traMADol [Ultram (G)] 50 mg PO Q6H PRN PRN 07/20/18 Collagenase [Santyl] 1 applic TOPICAL DAILY 07/30/18 Ertapenem Sodium [Ertapenem] 1 gm IM DAILY 08/02/18 Surgical History: Surgical History (Last Reviewed 08/02/18 @ 17:05 by CLARKE Goyal) Aortocoronary bypass status (Chronic) Z95.1 CABG x2- DENNIS to LAd, SVG to Diagonal of the LAD 10/31/11 History of tonsillectomy Z90.89 History of total hysterectomy Z90.710 History of tubal ligation Z98.51 Surgical History: coronary bypass surgery, hysterectomy, tonsillectomy 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, Depression [employer]PER[employer] History: No 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 [employer]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 Lives: Spouse/ Significant Other Smoking Status: Current every day smoker Tobacco Use: Cigarettes Alcohol: None Drugs: None - *Family History Maternal Family History: Family History (Last Reviewed 08/02/18 @ 17:05 by CLARKE Goyal) Father CAD (coronary artery disease) Cancer Mother CVA (cerebral vascular accident) Hypertension Paternal Family History: Family History (Last Reviewed 08/02/18 @ 17:05 by CLARKE Goyal) Father CAD (coronary artery disease) Cancer Mother CVA (cerebral vascular accident) Hypertension Review of Systems Constitutional: Denies: Chills, Fever, Weight Change HEENT: Denies: Head Aches, Sinus Congestion, Sinus Drainage Cardiovascular: Denies: Chest Pain, Palpitations Respiratory: Denies: Cough, Shortness of breath at rest, Sputum production Gastrointestinal: Denies: Abdominal Pain, Nausea, Vomiting Genitourinary: Denies: Dysuria Musculoskeletal: Denies: Joint Pain, Joint Tenderness Skin: Reports: - - Left breast and right lower abdomen wounds, present on admission. Neurological: Denies: Numbness, Tingling, Focal weakness Psychiatric: Reports: Anxiety, Depression. Denies: Homicidal Ideations, Suicidal Ideations Hematologic/ Lymphatic: Denies: Easy Bruising, Easy Bleeding Patient Problems: Active and Suspected Problems (Last Reviewed 07/03/17 @ 15:04 by Marjan Mitchell) Wound of left breast (Acute) Cellulitis and abscess of trunk (Acute) - Physical Exam General: Alert, Oriented x3, Cooperative HEENT: Atraumatic, PERRLA, EOMI, Normocephalic Neck: Supple, No JVD, Negative Carotid Bruits Lungs: Clear to auscultation, Diminished Cardiovascular: Regular rate, Regular Rhythm, Normal S1, Normal S2, No murmurs Abdomen: Bowel Sounds Present, Soft, Non Tender, Non-Distended, Obese Extremities: No clubbing, No cyanosis, No edema, Capillary Refill Less than 3 Seconds Skin: - - Left breast and right lower abdominal wounds, dressings intact. Musculoskeletal: No Tenderness to Palpation of Joints or Extremities Neurological: Cranial nerves II-XII grossly intact, Neuro grossly intact Psych/Mental Status: Normal Affect, Appropriate Vital Signs Temp Pulse Resp BP Pulse Ox 97.5 F L 88 20 H 134/61 H 92 08/02/18 15:39 08/02/18 15:39 08/02/18 15:39 08/02/18 15:39 08/02/18 15:39 Oxygen Delivery Method Room Air Weight: 258 lb 6.4 oz Body Mass Index (BMI) 47.2 Assessment/Plan All Active Problems (Last Reviewed 07/03/17 @ 15:04 by Marjan Mitchell) Wound of left breast (Acute) Cellulitis and abscess of trunk (Acute) 1. Infected left breast and right lower abdominal wounds-management per Dr. Lopez. Plan for surgical debridement tomorrow. Obtain EKG. Check CBC, CMP. Wound RN consult. Infectious disease consulted. PRN pain regimen. Continue IV ertapenem. Culture 07/16/2017+ for Morganella, Providencia, Staphylococcus aureus, bacteroides fragilis, anaerobic cocci. 2. CAD status post CABG-follows with Dr. Menendez. On aspirin, Plavix, metoprolol. Aspirin and Plavix can be held for surgery, CABG was in October 2011. 3. Hypertension-stable, continue home losartan, metoprolol regimen. 4. Hyperlipidemia-continue statin. 5. Chronic COPD-no acute exacerbation. As needed albuterol aerosol. 6. Type 2 diabetes mellitus-patient denies history of type 2 diabetes mellitus. However previously documented. Hemoglobin A1c 6.1% June 2017. Repeat hemoglobin A 1C. 7. Tobacco dependence-current 2 pack/day smoker. Encourage cessation. Declines nicotine replacement patch. 8. Morbid obesity-encouraged diet and lifestyle modifications. Nutrition consult. 9. Depression/anxiety-continue home bupropion and sertraline regimen. DVT prophylaxis-lovenox sc This patient was seen by CLARKE Goyal under the supervision of Dr. Hernandez. <Gianluca Hernandez - Last Filed: 08/02/18 19:09> Reason for Consult History of Present Illness: The patient is a 62 year old F presents with breast and abdominal wound after dog jumped on her in May. Patient has had poor healing and polymicrobial infections of her hematomas. Was seen at wound care and sent to the hospital to receive definitive therapy with debridement on the . [] Past Medical History Medical History: Medical History (Last Reviewed 08/02/18 @ 19:05 by Gianluca Hernandez DO) Old myocardial infarction (Chronic) I25.2 Abnormal stress test (Chronic) R94.39 Type 2 diabetes mellitus (Chronic) E11.9 Atherosclerotic heart disease of [place] coronary artery without angina pectoris (Chronic) I25.10 CABG x2- DENNIS to LAD, SVG to Diagonal of the LAD 10/31/11 Hypertension (Chronic) I10 Hyperlipidemia (Chronic) E78.5 Tobacco use disorder (Chronic) F17.200 Morbid obesity (Chronic) E66.01 Anxiety state F41.1 Encephalitis G04.90 as a child History of DVT (deep vein thrombosis) Z86.718 COPD (chronic obstructive pulmonary disease) J44.9 Diverticulosis K57.90 History of uterine cancer Z85.42 Allergies cephalexin [From Keflex] Allergy (Severe, Verified 07/30/18 13:50) Rash levofloxacin [From Levaquin] Allergy (Severe, Verified 07/30/18 13:50) Rash niacin Allergy (Severe, Verified 07/30/18 13:50) Rash Penicillins Allergy (Severe, Verified 07/30/18 13:50) Anaphylaxis Sulfa (Sulfonamide Antibiotics) Allergy (Severe, Verified 07/30/18 13:50) Rash citalopram [From Celexa] Adverse Reaction (Severe, Verified 07/30/18 13:50) Rash Estrogens Adverse Reaction (Severe, Verified 07/30/18 13:50) blood clots rosuvastatin [From Crestor] Adverse Reaction (Severe, Verified 07/30/18 13:50) myalgias oral contraceptives Adverse Reaction (Severe, Uncoded 07/30/18 13:50) Unknown Surgical History: Surgical History (Last Reviewed 08/02/18 @ 19:05 by Gianluca Hernandez DO) Aortocoronary bypass status (Chronic) Z95.1 CABG x2- DENNIS to LAd, SVG to Diagonal of the LAD 10/31/11 History of tonsillectomy Z90.89 History of total hysterectomy Z90.710 History of tubal ligation Z98.51 Surgical History: coronary bypass surgery, hysterectomy, tonsillectomy 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, Depression [employer] SUPER[employer]OR History: No pertinent 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 Lives: Spouse/ Significant Other Smoking Status: Current every day smoker Tobacco Use: Cigarettes Alcohol: None Drugs: None - *Family History Maternal Family History: Family History (Last Reviewed 08/02/18 @ 19:05 by Gianluca Hernandez DO) Father CAD (coronary artery disease) Cancer Mother CVA (cerebral vascular accident) Hypertension Paternal Family History: Family History (Last Reviewed 08/02/18 @ 19:05 by Gianluca Hernandez DO) Father CAD (coronary artery disease) Cancer Mother CVA (cerebral vascular accident) Hypertension Review of Systems Constitutional: Denies: Chills, Fever, Weight Change HEENT: Denies: Head Aches, Sinus Congestion, Sinus Drainage Cardiovascular: Denies: Chest Pain, Palpitations Respiratory: Denies: Shortness of breath at rest, Sputum production Gastrointestinal: Denies: Abdominal Pain, Nausea, Vomiting Genitourinary: Denies: Dysuria Musculoskeletal: Denies: Joint Pain, Joint Tenderness Skin: Reports: - Neurological: Denies: Focal weakness, Numbness, Tingling Psychiatric: Reports: Anxiety, Depression. Denies: Homicidal Ideations, Suicidal Ideations Hematologic/ Lymphatic: Denies: Easy Bruising, Easy Bleeding - Physical Exam General: Alert, Oriented x3, Cooperative HEENT: Atraumatic, PERRLA, Normocephalic Neck: Supple, Negative Carotid Bruits Lungs: Clear to auscultation, Normal air movement, No rhonchi, No wheeze, Diminished Cardiovascular: Regular rate, Regular Rhythm, Normal S1, Normal S2, No murmurs Abdomen: Bowel Sounds Present, Soft, Non Tender, Non-Distended, No Hepato- splenomegaly Extremities: No edema, No Calf Tenderness Skin: - Psych/Mental Status: Normal Affect, Appropriate Vital Signs Temp Pulse Resp BP Pulse Ox 36.4 C L 88 20 H 134/61 H 92 08/02/18 15:39 08/02/18 15:39 08/02/18 15:39 08/02/18 15:39 08/02/18 15:39 Oxygen Delivery Method Room Air Weight: 117.208 kg Body Mass Index (BMI) 47.2 Intake and Output for Last 24 Hours 07/31/18 08/01/18 08/02/18 23:59 23:59 23:59 Intake Total 300 / 300 Balance 300 / 300 Laboratory Tests Past 24 Hrs 08/02/18 08/02/18 08/02/18 18:00 18:00 18:00 WBC 14.7 H RBC 6.41 H Hgb 17.2 H Hct 52.0 H MCV 81.1 MCH 26.8 L MCHC 33.1 RDW 15.8 H RDW Differential 46.4 H Plt Count 263 MPV 10.9 ESR 57 H Sodium 133 L Potassium 3.2 L Chloride 100 Carbon Dioxide 27.0 Anion Gap 6 BUN 15 Creatinine 0.96 Estim Creat Clear Calc 48.06 Est GFR (MDRD) Af Amer 76 Est GFR (MDRD) Non-Af 63 BUN/Creatinine Ratio 15.7 Glucose 90 Hemoglobin A1c 6.0 Calcium 9.9 Total Bilirubin 0.40 AST 31 ALT 21 Alkaline Phosphatase 88 C-React Prot Ext Range 18.20 H Total Protein 7.3 Albumin 2.8 L Globulin 4.5 H Albumin/Globulin Ratio 0.6 L Prealbumin 14.4 L Assessment/Plan Patient seen and examined independently. Data reviewed. I agree with the above note by the nurse practitioner. 1. infected left breast and right lower abdominal wound: Has been polymicrobial and is on ertapenem. Plan for surgical debridement on the . Infectious disease consultation. 2. CAD: Stable. Okay to hold aspirin and Plavix as above. 3. Diabetes mellitus type 2: Monitor Thank you for the consultation. The hospitalist service will follow along during the course of this patient's hospitalization. Code Visit Inpatient E&M: 80994 Init Hosp L2
[2018-08-02] MEDS: Lactated Ringers 1,000 ML 60 ML IV (17:06)
--- NOTE | 2018-08-02 17:15 | EKG12_ITS ---
Test Reason : PRE-OP Blood Pressure : / mmHG Vent. Rate : 080 BPM Atrial Rate : 080 BPM P-R Int : 168 ms QRS Dur : 106 ms QT Int : 380 ms P-R-T Axes : 039 052 072 degrees QTc Int : 438 ms Normal sinus rhythm Low Voltage QRS (Limb Limb) Incomplete left bundle branch block Borderline ECG Confirmed by PAUL IRIZARRY, CLAUDIA ([id number]), script editor ADRIAN CARVER ([id number]) on 08/04/2018 8:19:43 AM Referred By: James Lopez Confirmed By:CLAUDIA MILLER MD
[2018-08-02 18:09] LABS: Hemoglobin 17.2 g/dl (12.0-15.0); Mean Corp Hgb Conc 33.1 g/gl (32-36); Mean Corpuscular Hgb 26.8 pg (27.0-32.0); Mean Corpuscular Volume 81.1 fL (81-99); Mean Platelet Vol. 10.9 fl (6.2-12.0); Platelet Count 263 K/mm3 (150-450); RBC Distribution Width CV 15.8 % (11.6-14.6); RBC Distribution Width SD 46.4 fl (35.1-43.9); Red Blood Count 6.41 M/mm3 (4.2-5.4); White Blood Count 14.7 K/mm3 (4.4-11.0)
[2018-08-02] MEDS: HYDROmorphone 2 MG TABLET PO ×2 (18:09→22:03)
[2018-08-02 18:22] LABS: Scan Indicated on CBC? Y/N NO
[2018-08-02 18:36] LABS: Erythrocyte Sedimentation Rate 57 mm/hr (0-30)
[2018-08-02 18:54] LABS: ALB/GLOB Ratio 0.6 RATIO (0.9-2.4); AST(SGOT) 31 U/L (15-37); Alanine Aminotransfer ALT/SGPT 21 U/L (13-56); Albumin, Serum 2.8 g/dL (3.2-5.0); Alkaline Phosphatase 88 U/L (45-117); Anion Gap 6 (5-15); BUN 15 mg/dL (7-18); BUN/Creat Ratio 15.7 RATIO (10-20); Calcium,Total 9.9 mg/dL (8.5-10.1); Chloride 100 mmol/L (98-107); Creatinine, Serum 0.96 mg/dL (0.55-1.02); EST Glomerular Filtration Rate 63 mL/min (>60); Est Glom Filt Rate - Afr Amer 76 mL/min (>60); Estimated Creatinine Clearance 48.06 ml/min; Globulin 4.5 g/dL (2.2-4.2); Glucose 90 mg/dL (74-106); Potassium 3.2 mmol/L (3.5-5.1); Prealbumin 14.4 mg/dL (20.0-40.0); Protein, Total 7.3 g/dL (6.4-8.2); Sodium Level 133 mmol/L (136-145)
--- NOTE | 2018-08-02 19:47 | RAD_ITS ---
STUDY: X-RAY CHEST REASON FOR EXAM: Female, 62 years old. PICC line TECHNIQUE: Frontal view COMPARISON: July 04, 2017 FINDINGS: Stable sternotomy wires. A left-sided PICC line is noted with tip at the mid SVC level. The lungs are clear and expanded. There is no demonstrated pleural abnormality. Normal size heart. Normal mediastinum and phu. Normal visualized pulmonary arteries. Normal visualized aortic arch and descending thoracic aorta. Degenerative changes of the thoracic spine. Normal visualized ribs, clavicles, and shoulders. There is no demonstrated abnormality of the visualized soft tissue structures of the upper abdomen. RAD/CXR for Line Placement IMPRESSION: Normal x-ray examination of the chest. Electronically Signed: Johny Kirkland DO at 20:05 EDT Tel [phone], Service support ,
[2018-08-02 20:25] VITALS: BP 104/59; PULSE 76; RESP 18; TEMP 36.6; O2SAT 94
[2018-08-02] MEDS: Simvastatin 10 MG Tablet 20 MG PO (20:31)
--- NOTE | 2018-08-02 20:36 | NURSING ---
Talked to Annel Rojas from manager billing. I read the Xray report to her and based on the report results she said the PICC line is ok to use.
[2018-08-02 22:05] VITALS: BP 104/59; PULSE 76
[2018-08-02] MEDS: Metoprolol Tartrate 25 MG Tablet PO (22:05)
[2018-08-02] MEDS: Nystatin Powder 15gm Bottle 1 APPLIC TOPICAL (22:06)
[2018-08-02] MEDS: Docusate Sodium 100 MG Capsule PO (22:06)
[2018-08-02] MEDS: 0.9% NaCl Peripheral Flush Adult/Peds IV ×2 (22:06→22:16)
--- NOTE | 2018-08-02 22:31 | PCM.HP.STD ---
History of Present Illness Date of Admission: 08/02/18 Chief Complaint: Infected diabetic hematoma ulcer abscesses left medial breast and right lower abdominal wall. The patient is a 62 year old F who had trauma to her left medial breast and right lower abdominal wall from her dog jumping on her repeatedly about 2 months ago. Developed painful, red, necrotic ulcers in these areas. CT Chest on 07/14/18 showed no breast abscesses or suspicious masses. It showed minimal cutaneous thickening along the medial aspect of the left breast. Neither a draining wound or underlying breast pathology are apparent, however. Wound culture on 07/16/18 showed Morganella morganii, Providencia rettgeri, Staphylococcus aureus, Bacteroides fragilis, and Anaerobic cocci. She was started on outpatient IM Ertapenem. [facility]. She had necrotic ulcerations in her left medial breast and right lower abdominal wall. There was surrounding redness and increasing tenderness. With a questionable history of diabetes, it was recommended to the patient to be admitted for IV antibiotic therapy in preparation for operative intervention with incision and drainage and excisional debridement of these necrotizing infected hematoma ulcer abscesses to minimize a more systemic spread of the infection. Due to the anticipated large wounds that will be created, patient will need the VAC postoperatively. She denies fever at home. Her WBC on 07/20/18 was elevated at 13.5. Today on admission, her WBC was 14.7. Her HgbA1c was 6.0. Past Medical History Past Medical History (Chronic Problems): Chronic Problems (Last Updated 08/02/18 @ 22:39 by James Lopez MD) Ulcer of abdomen wall with fat layer exposed (Chronic) Abscess of abdominal wall (Chronic) Abscess of left breast (Chronic) Open wound of right lower quadrant of abdominal wall without penetration into peritoneal cavity (Chronic) Traumatic hematoma of abdominal wall (Chronic) Traumatic hematoma of female breast (Chronic) Old myocardial infarction (Chronic) Abnormal stress test (Chronic) Type 2 diabetes mellitus (Chronic) Aortocoronary bypass status (Chronic) CABG x2- DENNIS to LAd, SVG to Diagonal of the LAD 10/31/11 Atherosclerotic heart disease of [place] coronary artery without angina pectoris (Chronic) CABG x2- DENNIS to LAD, SVG to Diagonal of the LAD 10/31/11 Hypertension (Chronic) Hyperlipidemia (Chronic) Tobacco use disorder (Chronic) Morbid obesity (Chronic) Medical History: Medical History (Last Updated 08/02/18 @ 22:39 by James Lopez MD) Old myocardial infarction (Chronic) I25.2 Abnormal stress test (Chronic) R94.39 Type 2 diabetes mellitus (Chronic) E11.9 Atherosclerotic heart disease of [place] coronary artery without angina pectoris (Chronic) I25.10 CABG x2- DENNIS to LAD, SVG to Diagonal of the LAD 10/31/11 Hypertension (Chronic) I10 Hyperlipidemia (Chronic) E78.5 Tobacco use disorder (Chronic) F17.200 Morbid obesity (Chronic) E66.01 Anxiety state F41.1 Encephalitis G04.90 as a child History of DVT (deep vein thrombosis) Z86.718 COPD (chronic obstructive pulmonary disease) J44.9 Diverticulosis K57.90 History of uterine cancer Z85.42 Allergies cephalexin [From Keflex] Allergy (Severe, Verified 07/30/18 13:50) Rash levofloxacin [From Levaquin] Allergy (Severe, Verified 07/30/18 13:50) Rash niacin Allergy (Severe, Verified 07/30/18 13:50) Rash Penicillins Allergy (Severe, Verified 07/30/18 13:50) Anaphylaxis Sulfa (Sulfonamide Antibiotics) Allergy (Severe, Verified 07/30/18 13:50) Rash citalopram [From Celexa] Adverse Reaction (Severe, Verified 07/30/18 13:50) Rash Estrogens Adverse Reaction (Severe, Verified 07/30/18 13:50) blood clots rosuvastatin [From Crestor] Adverse Reaction (Severe, Verified 07/30/18 13:50) myalgias oral contraceptives Adverse Reaction (Severe, Uncoded 07/30/18 13:50) Unknown Home Medications: Ambulatory Orders Medication Instructions Recorded losartan 100 1 tab PO DAILY 07/02/17 mg-hydrochlorothiazide 25 mg tablet metoprolol tartrate 25 mg tablet 25 mg PO BID 07/02/17 sertraline 100 mg tablet 100 mg PO QDAY 07/02/17 simvastatin 20 mg tablet 20 mg PO QPM 07/02/17 isosorbide mononitrate ER 30 mg 30 mg PO QAM #30 tab 07/08/17 tablet,extended release 24 hr clopidogrel 75 mg tablet 75 mg PO QDAY #90 tab 11/23/17 Bupropion HCl [Bupropion Xl] 300 mg PO DAILY 07/20/18 Nystatin Powder [Mycostatin Powder] 1 applic TOPICAL TID #2 bottle 07/20/18 traMADol [Ultram] 50 mg PO Q6H PRN PRN 07/20/18 Ertapenem Sodium [Ertapenem] 0 gm IV DAILY 7 Days #7 vial 08/04/18 Docusate Sodium [Colace] 100 mg PO BID #60 cap 08/05/18 Hydrochlorothiazide [Hctz] 25 mg PO DAILY tab 08/05/18 Lorazepam [Ativan] 1 mg PO TID PRN PRN #30 tab 08/05/18 Losartan Potassium [Cozaar] 100 mg PO DAILY tab 08/05/18 Oxycodone HCl/Acetaminophen 1 - 2 tab PO 4X/DAY PRN PRN 7 Days 08/05/18 [Percocet 5/325] #60 tab proMETHazine tablet [Phenergan 25 mg PO 4X/DAY PRN PRN #30 tab 08/05/18 tablet] Surgical History: Surgical History (Last Reviewed 08/02/18 @ 19:05 by Gianluca Hernandez DO) Aortocoronary bypass status (Chronic) Z95.1 CABG x2- DENNIS to LAd, SVG to Diagonal of the LAD 10/31/11 History of tonsillectomy Z90.89 History of total hysterectomy Z90.710 History of tubal ligation Z98.51 Surgical History: coronary bypass surgery, hysterectomy, tonsillectomy 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, Depression 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 Lives: Spouse/ Significant Other Smoking Status: Current every day smoker Tobacco Use: Cigarettes Alcohol: None Drugs: None - *Family History Maternal Family History: Family History (Last Reviewed 08/02/18 @ 19:05 by Gianluca Hernandez DO) Father CAD (coronary artery disease) Cancer Mother CVA (cerebral vascular accident) Hypertension Paternal Family History: Family History (Last Reviewed 08/02/18 @ 19:05 by Gianluca Hernandez DO) Father CAD (coronary artery disease) Cancer Mother CVA (cerebral vascular accident) Hypertension Review of Systems Comment: Constitutional: Denies: Chills, Fever, Weight Change. HEENT: Denies: Head Aches, Sinus Congestion, Sinus Drainage. Cardiovascular: Denies: Chest Pain, Palpitations. Respiratory: Denies: Cough, Shortness of breath at rest, Sputum production. Gastrointestinal: Denies: Abdominal Pain, Nausea, Vomiting. Genitourinary: Denies: Dysuria. Musculoskeletal: Denies: Joint Pain, Joint Tenderness. Skin: Reports: - - Left breast and right lower abdomen wounds, present on admission. Neurological: Denies: Numbness, Tingling, Focal weakness. Psychiatric: Reports: Anxiety, Depression. Denies: Homicidal Ideations, Suicidal Ideations. Hematologic/ Lymphatic: Denies: Easy Bruising, Easy Bleeding VTE Information - Inpt Only VTE Present on Admission: No VTE Mechan Device Prophylaxis: SCD's VTE Pharm Prophylaxis ordered?: No - Physical Exam HEENT: PERRLA, EOMI. Neck: Supple, Nontender. No cervical adenopathy. Lungs: Clear to auscultation, Diminished Cardiovascular: Regular rate, Regular Rhythm. Breasts: On the left medial breast is a nonhealing infected hematoma ulcer abscess that measures 4 x 5 x 0.5 cm. Fat necrosis is present. Some tannish drainage is noted. Tender to palpation. No fluctuance. Some surrounding redness. Abdomen: Soft, Non-Distended, Obese. On the right lower abdominal wall is a nonhealing infected hematoma ulcer abscess that measures 7 x 5 x 1 cm. Fat necrosis is present. Some tannish drainage noted. Tender to palpation. No fluctuance. Some surrounding redness. Extremities: No clubbing, No cyanosis, No edema, Capillary Refill Less than 3 Seconds. Musculoskeletal: No Tenderness to Palpation of Joints or Extremities. Neurological: Cranial nerves II-XII grossly intact. Psych/Mental Status: Normal Affect, Appropriate. Vital Signs Temp Pulse Resp BP Pulse Ox 97.9 F 76 18 104/59 L 94 08/02/18 20:25 08/02/18 22:05 08/02/18 20:25 08/02/18 22:05 08/02/18 20:25 Oxygen Delivery Method Room Air Weight: 258 lb 6.4 oz Body Mass Index (BMI) 47.2 Intake and Output for Last 24 Hours 07/31/18 08/01/18 08/02/18 23:59 23:59 23:59 Intake Total 300 / 300 Balance 300 / 300 Laboratory Tests Past 24 Hrs 08/02/18 08/02/18 08/02/18 18:00 18:00 18:00 WBC 14.7 H RBC 6.41 H Hgb 17.2 H Hct 52.0 H MCV 81.1 MCH 26.8 L MCHC 33.1 RDW 15.8 H RDW Differential 46.4 H Plt Count 263 MPV 10.9 ESR 57 H Sodium 133 L Potassium 3.2 L Chloride 100 Carbon Dioxide 27.0 Anion Gap 6 BUN 15 Creatinine 0.96 Estim Creat Clear Calc 48.06 Est GFR (MDRD) Af Amer 76 Est GFR (MDRD) Non-Af 63 BUN/Creatinine Ratio 15.7 Glucose 90 Hemoglobin A1c 6.0 Calcium 9.9 Total Bilirubin 0.40 AST 31 ALT 21 Alkaline Phosphatase 88 C-React Prot Ext Range 18.20 H Total Protein 7.3 Albumin 2.8 L Globulin 4.5 H Albumin/Globulin Ratio 0.6 L Prealbumin 14.4 L Assessment/Plan All Active Problems (Last Updated 08/02/18 @ 22:39 by James Lopez MD) Wound of left breast (Acute) Cellulitis and abscess of trunk (Acute) 1. 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 2. Nonhealing necrotizing infected diabetic hematoma ulcer abscess right lower abdominal wall. 3. Hematoma left medial breast, sequela. 4. Hematoma right lower abdominal wall, sequela. 5. Diabetes mellitus. 6. Smoker. Recommend operative intervention with incision and drainage of the abscess and excisional debridement of necrotizing soft tissue infection. Due to the extensive nature of the necrotizing soft tissue infection, a partial mastectomy may be necessary along with an abdominal panniculectomy. Will leave the wounds open and begin postop wound care with the VAC. Tissue will be sent to Pathology for analysis to rule out carcinoma and to Microbiology for culture. A positive culture may necessitate antibiotic modification. She had been getting Ertapenem IM as an outpatient, and we will continue that. Will consult Infectious Diseases to help with antibiotic management. Depending on what is found at surgery and the severity of the infection, the patient may need group home IV antibiotics with a PICC line. Surgery will be done tomorrow under general anesthesia. Will also consult Hospitalist Group to help with medical management. Anticipate increased metabolic demands from the infection and from the surgery. Will check a Prealbumin and encourage nutritional supplementation with protein to help the healing process. After discharge, will followup at the [facility]. If there is a plateau in the healing process, then delayed closure can be done with skin grafting or complex secondary wound closure. For the left breast wound, secondary wound closure with an oncoplastic type reconstruction may be necessary. Also anticipate the left breast becoming smaller than the right breast after controlling the infection. Further breast reconstruction surgery may be necessary on the right breast for symmetry. Patient was informed of the risks and complications of the procedure including alternatives to surgery. These were discussed with the patient personally. Patient voices understanding and wishes to proceed. She knows the wounds will be left open for a while until the infection is controlled, and she knows her left breast will be smaller than her right breast after controlling the infection. She voices understanding and wishes to proceed. Encouraged patient to stop smoking as it may have deleterious effects on wound healing. Code Visit Inpatient E&M: 95067 Init Hosp L2 - ICD-10 - N61.1, L02.211, L98.492, S20.00xA, S30.1xxA, E11.9, F17.200
[2018-08-03] VITALS (10 sets, daily range): BP systolic 92–144; BP diastolic 51–78; PULSE 68–89; RESP 16–18; TEMP 36.3–36.9; O2SAT 92–98; BMI 47.2; BMI 47.3
[2018-08-03] MEDS: HYDROmorphone 1 MG/ML Syringe IV (02:37)
[2018-08-03 06:53] LABS: Hematocrit 50.2 % (37-47); Hemoglobin 16.2 g/dl (12.0-15.0); Mean Corp Hgb Conc 32.3 g/gl (32-36); Mean Corpuscular Hgb 26.5 pg (27.0-32.0); Mean Platelet Vol. 10.7 fl (6.2-12.0); Platelet Count 252 K/mm3 (150-450); RBC Distribution Width CV 15.8 % (11.6-14.6); RBC Distribution Width SD 47.2 fl (35.1-43.9); Red Blood Count 6.12 M/mm3 (4.2-5.4); White Blood Count 10.3 K/mm3 (4.4-11.0)
[2018-08-03 06:58] LABS: Scan Indicated on CBC? Y/N NO
[2018-08-03 07:26] LABS: Anion Gap 8 (5-15); BUN 20 mg/dL (7-18); BUN/Creat Ratio 22.8 RATIO (10-20); Chloride 99 mmol/L (98-107); Creatinine, Serum 0.88 mg/dL (0.55-1.02); EST Glomerular Filtration Rate 69 mL/min (>60); Est Glom Filt Rate - Afr Amer 84 mL/min (>60); Estimated Creatinine Clearance 52.42 ml/min; Glucose 94 mg/dL (74-106); Potassium 3.2 mmol/L (3.5-5.1); Sodium Level 139 mmol/L (136-145); Thyroid Stim Hormone (TSH) 1.87 uIU/mL (0.358-3.74)
--- NOTE | 2018-08-03 09:42 | PCM.PROGNOTE ---
Patient Problems: Active and Suspected Problems (Last Updated 08/02/18 @ 22:39 by James Lopez MD) Cellulitis and abscess of trunk (Acute) Subjective: Patient seen and examined. Tearful, complaining of pain. Anxious about surgery this evening. To undergo wound debridement with Dr. Lopez this evening. - Physical Exam General: Alert, Oriented x3, Cooperative HEENT: Atraumatic, PERRLA, EOMI, Normocephalic Neck: Supple, No JVD, Negative Carotid Bruits Lungs: Clear to auscultation, Diminished Cardiovascular: Regular rate, Regular Rhythm, Normal S1, Normal S2, No murmurs Abdomen: Bowel Sounds Present, Soft, Non Tender, Non-Distended, Obese Extremities: No clubbing, No cyanosis, No edema Skin: - - Left breast and right lower abdominal wounds, dressings intact. Musculoskeletal: No Tenderness to Palpation of Joints or Extremities Neurological: Cranial nerves II-XII grossly intact, Neuro grossly intact Psych/Mental Status: Anxious Vital Signs Temp Pulse Resp BP Pulse Ox 98.2 F 69 18 114/72 98 08/03/18 08:41 08/03/18 08:41 08/03/18 08:41 08/03/18 08:41 08/03/18 08:41 Oxygen Delivery Method Room Air Weight: 258 lb 6.4 oz Body Mass Index (BMI) 47.2 Intake and Output for Last 24 Hours 08/01/18 08/02/18 08/03/18 23:59 23:59 23:59 Intake Total 300 / 1100 1099 / 1099 Balance 300 / 1100 1099 / 1099 Laboratory Tests Past 24 Hrs 08/02/18 08/02/18 08/02/18 18:00 18:00 18:00 WBC 14.7 H RBC 6.41 H Hgb 17.2 H Hct 52.0 H MCV 81.1 MCH 26.8 L MCHC 33.1 RDW 15.8 H RDW Differential 46.4 H Plt Count 263 MPV 10.9 ESR 57 H Sodium 133 L Potassium 3.2 L Chloride 100 Carbon Dioxide 27.0 Anion Gap 6 BUN 15 Creatinine 0.96 Estim Creat Clear Calc 48.06 Est GFR (MDRD) Af Amer 76 Est GFR (MDRD) Non-Af 63 BUN/Creatinine Ratio 15.7 Glucose 90 Hemoglobin A1c 6.0 Calcium 9.9 Total Bilirubin 0.40 AST 31 ALT 21 Alkaline Phosphatase 88 C-React Prot Ext Range 18.20 H Total Protein 7.3 Albumin 2.8 L Globulin 4.5 H Albumin/Globulin Ratio 0.6 L Prealbumin 14.4 L TSH 08/03/18 08/03/18 06:35 06:35 WBC 10.3 RBC 6.12 H Hgb 16.2 H Hct 50.2 H MCV 82.0 MCH 26.5 L MCHC 32.3 RDW 15.8 H RDW Differential 47.2 H Plt Count 252 MPV 10.7 ESR Sodium 139 Potassium 3.2 L Chloride 99 Carbon Dioxide 32.0 Anion Gap 8 BUN 20 H Creatinine 0.88 Estim Creat Clear Calc 52.42 Est GFR (MDRD) Af Amer 84 Est GFR (MDRD) Non-Af 69 BUN/Creatinine Ratio 22.8 H Glucose 94 Hemoglobin A1c Calcium 10.0 Total Bilirubin AST ALT Alkaline Phosphatase C-React Prot Ext Range Total Protein Albumin Globulin Albumin/Globulin Ratio Prealbumin TSH 1.87 Medical Necessity - Tobacco Use Smoking Status: Current every day smoker Tobacco Use: Cigarettes Assessment/Plan All Active Problems (Last Updated 08/02/18 @ 22:39 by James Lopez MD) Wound of left breast (Acute) Cellulitis and abscess of trunk (Acute) 1. Infected left breast and right lower abdominal wounds-management per Dr. Lopez. Plan for surgical debridement 08/04/2018. Wound RN consult. Infectious disease consulted. PRN pain regimen. Continue IV ertapenem. Culture 07/16/2017+ for Morganella, Providencia, Staphylococcus aureus, bacteroides fragilis, anaerobic cocci. 2. CAD status post CABG-follows with Dr. Menendez. On aspirin, Plavix, metoprolol. Aspirin and Plavix can be held for surgery, CABG was in October 2011. 3. Hypertension-stable, continue home losartan, metoprolol regimen. 4. Hyperlipidemia-continue statin. 5. Chronic COPD-no acute exacerbation. As needed albuterol aerosol. 6. Type 2 diabetes mellitus?-patient denies history of type 2 diabetes mellitus. However previously documented. Hemoglobin A1c 6.1% June 2017. Repeat hemoglobin A1C 6%. Carb controlled diet. 7. Tobacco dependence-current 2 pack/day smoker. Encourage cessation. Declines nicotine replacement patch. 8. Morbid obesity-encouraged diet and lifestyle modifications. Nutrition consult. 9. Depression/anxiety-continue home bupropion and sertraline regimen. DVT prophylaxis-SCDs This patient was seen by CLARKE Goyal under the supervision of Dr. Daley.
--- NOTE | 2018-08-03 10:21 | PCM.HP.ID ---
Problem List (1) Abscess of left breast Status: Chronic Reason for Consult: abscess Consulted by: Dr. Lopez History of Present Illness: The patient is a 62 year old F who had trauma to her L breast and RLQ abd from her dog jumping on her repeatedly about 2 months ago. Developed painful, red, necrotic wounds at those areas. Started following with wound care. Cxs with polymicrobial growth. Multiple abx allergies causing anaphylaxis. Started on IM ertapenem 07/30 and has been tolerating it well with some improvement in redness. Referred to Dr. Lopez, and plan today is for OR for I&D. Still with severe pain. No fever, no n/v/d. Full ROS performed and neg except as noted above. - Medical History Past Medical History (Chronic Problems): Chronic Problems (Last Updated 08/02/18 @ 22:39 by James Lopez MD) Ulcer of abdomen wall with fat layer exposed (Chronic) Abscess of abdominal wall (Chronic) Abscess of left breast (Chronic) Open wound of right lower quadrant of abdominal wall without penetration into peritoneal cavity (Chronic) Traumatic hematoma of abdominal wall (Chronic) Traumatic hematoma of female breast (Chronic) Old myocardial infarction (Chronic) Abnormal stress test (Chronic) Type 2 diabetes mellitus (Chronic) Aortocoronary bypass status (Chronic) CABG x2- DENNIS to LAd, SVG to Diagonal of the LAD 10/31/11 Atherosclerotic heart disease of [place] coronary artery without angina pectoris (Chronic) CABG x2- DENNIS to LAD, SVG to Diagonal of the LAD 10/31/11 Hypertension (Chronic) Hyperlipidemia (Chronic) Tobacco use disorder (Chronic) Morbid obesity (Chronic) Allergies/Adverse Reactions: Allergies cephalexin [From Keflex] Allergy (Severe, Verified 07/30/18 13:50) Rash levofloxacin [From Levaquin] Allergy (Severe, Verified 07/30/18 13:50) Rash niacin Allergy (Severe, Verified 07/30/18 13:50) Rash Penicillins Allergy (Severe, Verified 07/30/18 13:50) Anaphylaxis Sulfa (Sulfonamide Antibiotics) Allergy (Severe, Verified 07/30/18 13:50) Rash citalopram [From Celexa] Adverse Reaction (Severe, Verified 07/30/18 13:50) Rash Estrogens Adverse Reaction (Severe, Verified 07/30/18 13:50) blood clots rosuvastatin [From Crestor] Adverse Reaction (Severe, Verified 07/30/18 13:50) myalgias oral contraceptives Adverse Reaction (Severe, Uncoded 07/30/18 13:50) Unknown Home Medications: Ambulatory Orders Medication Instructions Recorded aspirin 81 mg tablet,delayed 81 mg PO QDAY 07/02/17 release losartan 100 1 tab PO DAILY 07/02/17 mg-hydrochlorothiazide 25 mg tablet metoprolol tartrate 25 mg tablet 25 mg PO BID 07/02/17 sertraline 100 mg tablet 100 mg PO QDAY 07/02/17 simvastatin 20 mg tablet 20 mg PO QPM 07/02/17 lorazepam 0.5 mg tablet 0.25 mg PO Q6H PRN tab 07/03/17 isosorbide mononitrate ER 30 mg 30 mg PO QAM #30 tab 07/08/17 tablet,extended release 24 hr clopidogrel 75 mg tablet 75 mg PO QDAY #90 tab 11/23/17 Bupropion HCl [Bupropion Xl] 300 mg PO DAILY 07/20/18 Nystatin Powder [Mycostatin Powder] 1 applic TOPICAL TID #2 bottle 07/20/18 traMADol [Ultram (G)] 50 mg PO Q6H PRN PRN 07/20/18 Collagenase [Santyl] 1 applic TOPICAL DAILY 07/30/18 Ertapenem Sodium [Ertapenem] 1 gm IM DAILY 08/02/18 - Social History Tobacco Use: cigarettes Vital Signs Temp Pulse Resp BP Pulse Ox 98.2 F 69 18 114/72 98 08/03/18 08:41 08/03/18 08:41 08/03/18 08:41 08/03/18 08:41 08/03/18 08:41 Oxygen Delivery Method Room Air Weight: 117.208 kg Body Mass Index (BMI) 47.2 Laboratory Tests Past 24 Hrs 08/02/18 08/02/18 08/02/18 18:00 18:00 18:00 WBC 14.7 H RBC 6.41 H Hgb 17.2 H Hct 52.0 H MCV 81.1 MCH 26.8 L MCHC 33.1 RDW 15.8 H RDW Differential 46.4 H Plt Count 263 MPV 10.9 ESR 57 H Sodium 133 L Potassium 3.2 L Chloride 100 Carbon Dioxide 27.0 Anion Gap 6 BUN 15 Creatinine 0.96 Estim Creat Clear Calc 48.06 Est GFR (MDRD) Af Amer 76 Est GFR (MDRD) Non-Af 63 BUN/Creatinine Ratio 15.7 Glucose 90 Hemoglobin A1c 6.0 Calcium 9.9 Total Bilirubin 0.40 AST 31 ALT 21 Alkaline Phosphatase 88 C-React Prot Ext Range 18.20 H Total Protein 7.3 Albumin 2.8 L Globulin 4.5 H Albumin/Globulin Ratio 0.6 L Prealbumin 14.4 L TSH 08/03/18 08/03/18 06:35 06:35 WBC 10.3 RBC 6.12 H Hgb 16.2 H Hct 50.2 H MCV 82.0 MCH 26.5 L MCHC 32.3 RDW 15.8 H RDW Differential 47.2 H Plt Count 252 MPV 10.7 ESR Sodium 139 Potassium 3.2 L Chloride 99 Carbon Dioxide 32.0 Anion Gap 8 BUN 20 H Creatinine 0.88 Estim Creat Clear Calc 52.42 Est GFR (MDRD) Af Amer 84 Est GFR (MDRD) Non-Af 69 BUN/Creatinine Ratio 22.8 H Glucose 94 Hemoglobin A1c Calcium 10.0 Total Bilirubin AST ALT Alkaline Phosphatase C-React Prot Ext Range Total Protein Albumin Globulin Albumin/Globulin Ratio Prealbumin TSH 1.87 - Other Studies Radiology: [] reviewed Other Studies: [] Route of nutrition/ use of supplements: [] Nutritional Intake: [] IV Site: [] Griffith Catheter: [] - Physical Exam General: Alert, Oriented x3, Cooperative, - - in pain HEENT: Atraumatic, PERRLA, EOMI Neck: Supple, No Nodes Lungs: Clear to auscultation, Normal air movement Cardiovascular: Regular rate, Regular Rhythm, No murmurs Abdomen: Soft, Non Tender, Non-Distended Extremities: Edema Skin: Ulcer/ Wound - On L breast and RLQ abd IV Site: Peripheral, without redness Musculoskeletal: No Tenderness to Palpation of Joints or Extremities Neurological: Cranial nerves II-XII grossly intact - Assessment/Plan Antibiotics: [] Assessment/Plan: [] Active and Suspected Problems (Last Updated 08/02/18 @ 22:39 by James Lopez MD) Cellulitis and abscess of trunk (Acute) OR today with Dr. Lopez for debridement. On ertapenem since 07/30. Wound cx with MSSA, morganella, providencia, bacteroides, and anaerobe. Will change erta to meropenem while inpatient. Will follow, thank you.
[2018-08-03] MEDS: Lactated Ringers 1,000 ML 60 ML IV ×2 (10:26→21:56)
[2018-08-03] MEDS: HYDROmorphone 2 MG TABLET PO ×2 (10:29→19:14)
--- NOTE | 2018-08-03 11:58 | NURSING ---
Call placed to Ac and report given to RN
--- NOTE | 2018-08-03 13:00 | ABS_PTH ---
PATIENT: OLENA HEALY V LOC: MS3 U#:[id number] AGE/SX: 62/F ROOM: [facility] RE08/02/[address]: Dr. James Lopez MD : 1955 BED: 1 DIS: 08/05/2018 SPEC #: [id number] RECD: 08/03/18 14:50 STATUS: JAIMIE REQ #: [id number] FLIP: 08/03/18 13:[address]: James Lopez DEPT: SURGICAL PATHOLOGY RECD BY: Ehsan Green ENTERED: 08/04/18 09:56 SP TYPE: Abscess OTHR DR: Dr. Gianluca Hernandez, MD Dr. James Tran Dr., MD Dr. Marc Fiorentino, MD Dr. Mark Tereletsky, DO Dr. Robert Leininger, MD Dr. Raymond Mason, MD Raymond Mason Tissues: A - Abdominal wall, NOS B - Left breast, NOS Procedures: Surgery Specimen Level III Comments: @ Ordering doctor for SUIII edited from to @ by CELIA at 08/04/18 0957 @ Submitting doctor edited from to @ by CELIA at 08/04/18 0957 HEADER OPERATION: Incision, drainage hematoma/ulcer abscess left breast and right abdominal wall PRE-OP DIAGNOSIS: Infected diabetic ulcers, left medial breast and right lower anterior abdominal wall TISSUE SUBMITTED: A. Right abdominal wall abscess tissue, B. Left breast abscess tissue MICROSCOPIC DIAGNOSIS A. Right abdominal wall abscess tissue, excision: Skin with ulceration, acute and chronic inflammation and subcutaneous fat necrosis. B. Left breast abscess tissue, excision: Skin with ulceration, acute and chronic inflammation, subcutaneous fat necrosis and focal subcutaneous abscess formation. CE:israel 08/06/18 MICROSCOPIC DESCRIPTION Slides are reviewed. GROSS DESCRIPTION A - Received in fixative is one container labeled with the patient's name and designated right abdominal wall abscess tissue. The specimen consists of a segment of round fragment of skin with attached subcutaneous adipose tissue measuring 15.5 x 15.2 x 4.5 cm. The skin surface shows two ulcerated areas, one measuring 2.5 cm and the measuring 5 cm in greatest dimension. Also present in the container is a second skin ellipse with attached subcutaneous adipose tissue measuring 5.5 x 5.4 x 2 cm. Cvor Nurse sections are submitted as follows: 1 & 2 - insurance verification representative sections from the smaller ulcerated area, 3 & 4 - insurance verification representative sections from the larger ulcerated area, 5 - insurance verification representative section from the nonulcerated area, 6 & 7 - insurance verification representative sections of the second skin ellipse. B - Received in fixative is one container labeled with the patient's name and designated left breast abscess tissue. The specimen consists of three yellowish-zazueta adipose tissue fragments measuring in aggregate 12 x 8.5 x 4 cm. One out of three skin tissue fragments has attachments showing ulceration. The attached skin measures 7.2 x 2.5 cm. Serial sectioning of all three fragments reveal homogenous zazueta fibroadipose tissue. Cvor Nurse sections are submitted as follows: 1-4 - insurance verification representative sections of the fragment with attached skin ellipse, 5 & 6 - insurance verification representative sections from the other two fatty tissue fragments without attached skin. / KWABENA:israel 08/04/18 TC:2 CPT: 94746 x2
--- NOTE | 2018-08-03 13:15 | PCA ---
pt off floor
--- NOTE | 2018-08-03 14:42 | OP.PCM_ITS ---
Report of Operation Date of Procedure: 08/03/18 Pre-Operative Diagnosis: 1. 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 2. Nonhealing necrotizing infected diabetic hematoma ulcer abscess right lower abdominal wall. 3. Hematoma left medial breast, sequela. 4. Hematoma right lower abdominal wall, sequela. 5. Diabetes mellitus. 6. Smoker. Post-Operative Diagnosis: Same. Surgery/Procedure Performed:: 1. Surgical preparation left medial breast with incision and drainage and excisional debridement nonhealing necrotizing infected diabetic hematoma ulcer abscess and partial mastectomy (70 cm2). 2. Surgical preparation right lower abdominal wall with incision and drainage and excisional debridement nonhealing necrotizing infected diabetic hematoma ulcer abscess and abdominal panniculectomy (300 cm2). Description of Surgical Findings:: The patient is a 62 year old F who had trauma to her left medial breast and right lower abdominal wall from her dog jumping on her repeatedly about 2 months ago. Developed painful, red, necrotic ulcers in these areas. CT Chest on 07/14/18 showed no breast abscesses or suspicious masses. Wound culture on 07/16/18 showed Morganella morganii, Providencia rettgeri, Staphylococcus aureus, Bacteroides fragilis, and Anaerobic cocci. She was started on outpatient IM Ertapenem. I saw her today at the [facility] for the first time. She had necrotic ulcerations in her left medial breast and right lower abdominal wall. There was surrounding redness and increasing tenderness. With a questionable history of diabetes, it was recommended to the patient to be admitted for IV antibiotic therapy in preparation for operative intervention with incision and drainage and excisional debridement of these necrotizing infected hematoma ulcer abscesses to minimize a more systemic spread of the infection. Due to the anticipated large wounds that will be created, patient will need the VAC postoperatively. She denies fever at home. Her WBC on 07/20/18 was elevated at 13.5. Today on admission, her WBC was 14.7. Her HgbA1c was 6.0. Patient was informed of the risks and complications of the procedure including alternatives to surgery. These were discussed with the patient personally. Patient voices understanding and wishes to proceed. Encouraged patient to stop smoking as it may have deleterious effects on wound healing. Patient understands the wounds will be left open initially and wound care started with the VAC. Depending on the resultant deformity after healing has occurred, further revision surgery may be necessary. It is expected that there will be some breast asymmetry after healing has occurred which may necessitate further breast reconstruction surgery. Patient voices understanding and wishes to proceed. Size of defect left medial breast - 10 x 7 x 9 cm. Size of defect right lower abdominal wall - 12 x 25 x 6 cm. certified bench jeweler technician: None Type of Anesthesia:: General Specimen's removed: 1. Nonhealing necrotizing infected diabetic hematoma ulcer abscess left medial breast to Pathology and Microbiology. 2. Nonhealing necrotizing infected diabetic hematoma ulcer abscess right lower abdominal wall to Pathology and Microbiology. Drains: None. Estimated Blood Loss (mL): 250 ml. Description of Procedure: Patient was taken to OR in supine position and was placed under general anesthesia. The left breast and abdominal wall areas were prepped and draped in the usual fashion. SCD's were placed for DVT prophylaxis. Perioperative antibiotics were given intravenously. I then proceeded with incision and drainage of both these necrotic hematoma ulcers down into the subcutaneous tissue. Some pus was seen. Extensive fat necrosis was seen and extensive induration was seen. The necrotic ulcerations were excised and debrided in addition to the extensive fat necrosis. The wound extended to the chest wall and pectoralis muscle which appeared viable and to the abdominal wall fascia which appeared mildly swollen and viable. Tissue was sent from each area separ ately to Pathology for analysis to rule out carcinoma and to Microbiology for culture. A positive culture may necessitate antibiotic modification. The excision and debridement on the left medial breast was quite extensive as it extended to the nipple areolar complex. Between 25-40% of the breast tissue was excised as a partial mastectomy. The wound was irrigated with saline. Hemostasis was obtained with electrocautery. The size of the left medial breast wound after incision and drainage and excision and debridement was 10 x 7 x 9 cm. The excision and debridement on the right lower abdominal wall was quite extensive as it extended to the abdominal wall fascia and medially to the infraumbilical area as a panniculectomy. The necrotizing soft tissue infection appeared more severe in the abdominal wall area. The wound was irrigated with saline. Hemostasis was obtained with electrocautery. The size of the right lower abdominal wall wound after incision and drainage and excision and debridement was 12 x 25 x 6 cm. Both wounds were dressed with Mepitel nonadherent dressings followed by Kerlix gauze and Betadine followed by dry Kerlix gauze and ABD pads compression dressing. Patient tolerated the procedure well and was sent to PACU in satisfactory condition. Patient will be sent upstairs for continued postop care. The VAC will be applied tomorrow. After discharge she will followup at the Wound Center. Anticipated breast asymmetry deformities will result after healing has occurred and further breast reconstruction may be necessary. Further revision surgery may also be necessary on the abdominal wall depending on the extent of the residual scar contour deformity that develops after healing has occurred. Grafts/Implants Used: None. - Complications None. - Admit VTE Documentation VTE Present on Admission: No VTE Mechan Device Prophylaxis: SCD's VTE Pharm Prophylaxis ordered?: Yes Code Visit Surgery Charges CPT - 71760 ICD-10 - N61.1, S20.00xA, M79.89, E11.9, F17.200 49262 N61.1, S20.00xA, M79.89, E11.9, F17.200 83665 L02.211, L98.492, S30.1xxA, M79.89, E11.9, F17.200 30876 L02.211, E65, L98.492, S30.1xxA, M79.89, E11.9, F17.200
--- NOTE | 2018-08-03 15:19 | PCA ---
pt off floor
[2018-08-03] MEDS: Glucerna Shake 120 ML LIQUID PO (17:53)
[2018-08-03] MEDS: Simvastatin 10 MG Tablet 20 MG PO (21:47)
[2018-08-03] MEDS: Metoprolol Tartrate 25 MG Tablet PO (21:47)
[2018-08-03] MEDS: Docusate Sodium 100 MG Capsule PO (21:47)
[2018-08-03] MEDS: Nystatin Powder 15gm Bottle 1 APPLIC TOPICAL (21:48)
[2018-08-03] MEDS: LORazepam 0.5 MG Tablet 0.25 MG PO (22:00)
[2018-08-04 02:05] VITALS: BP 114/51; PULSE 68; RESP 18; TEMP 36.5; O2SAT 99
[2018-08-04] MEDS: HYDROmorphone 2 MG TABLET PO ×3 (05:28→18:30)
[2018-08-04] MEDS: Enoxaparin 40 MG/0.4 ML Syringe SC (05:29)
[2018-08-04] MEDS: Nystatin Powder 15gm Bottle 1 APPLIC TOPICAL ×3 (05:32→22:27)
[2018-08-04] MEDS: 0.9% NaCl Peripheral Flush Adult/Peds IV ×3 (06:19→06:25)
[2018-08-04 07:25] LABS: Anion Gap 4 (5-15); BUN 19 mg/dL (7-18); BUN/Creat Ratio 28.5 RATIO (10-20); Calcium,Total 9.6 mg/dL (8.5-10.1); Chloride 101 mmol/L (98-107); Creatinine, Serum 0.67 mg/dL (0.55-1.02); EST Glomerular Filtration Rate 95 mL/min (>60); Est Glom Filt Rate - Afr Amer 115 mL/min (>60); Estimated Creatinine Clearance 68.86 ml/min; Glucose 96 mg/dL (74-106); Hematocrit 45.4 % (37-47); Mean Corp Hgb Conc 30.8 g/gl (32-36); Mean Corpuscular Hgb 25.5 pg (27.0-32.0); Mean Corpuscular Volume 82.5 fL (81-99); Mean Platelet Vol. 11.6 fl (6.2-12.0); Platelet Count 243 K/mm3 (150-450); Potassium 3.5 mmol/L (3.5-5.1); Prealbumin 13.4 mg/dL (20.0-40.0); RBC Distribution Width CV 15.8 % (11.6-14.6); RBC Distribution Width SD 47.9 fl (35.1-43.9); Sodium Level 138 mmol/L (136-145); White Blood Count 14.9 K/mm3 (4.4-11.0)
[2018-08-04 07:32] LABS: Scan Indicated on CBC? Y/N NO
[2018-08-04] MEDS: Glucerna Shake 120 ML LIQUID PO ×3 (08:44→17:07)
[2018-08-04] MEDS: HYDROmorphone 1 MG/ML Syringe IV (08:44)
[2018-08-04] MEDS: Isosorbide Mononitrate 30 MG Tablet PO (08:46)
[2018-08-04] MEDS: Docusate Sodium 100 MG Capsule PO ×2 (08:46→22:26)
[2018-08-04 08:47] VITALS: PULSE 82
[2018-08-04] MEDS: Metoprolol Tartrate 25 MG Tablet PO (08:47)
[2018-08-04] MEDS: Losartan Potassium 100 MG Tablet PO (08:47)
[2018-08-04] MEDS: buPROPion (XL) 300 MG TABLET.XL PO (08:47)
[2018-08-04] MEDS: hydroCHLOROthiazide 25 MG Tablet PO (08:47)
[2018-08-04] MEDS: Sertraline 100 MG Tablet PO (08:48)
[2018-08-04 08:58] VITALS: BP 125/63; PULSE 82; RESP 18; TEMP 36.6; O2SAT 95
--- NOTE | 2018-08-04 11:02 | NURSING ---
wound photo: left breast
--- NOTE | 2018-08-04 11:02 | NURSING ---
wound photo: right lower abdomen
--- NOTE | 2018-08-04 12:03 | PCM.PROGNOTE ---
Patient Problems: Active and Suspected Problems (Last Updated 08/02/18 @ 22:39 by James Lopez MD) Cellulitis and abscess of trunk (Acute) Subjective: Patient seen and examined. Wound RN applying wound VAC to left breast and right abdomen. Patient reports pain is well controlled at this time. Denies other complaints. - Physical Exam General: Alert, Oriented x3, Cooperative HEENT: Atraumatic, PERRLA, EOMI, Normocephalic Oral: Moist Mucosa Neck: Supple, No JVD, Negative Carotid Bruits Lungs: Clear to auscultation, Normal air movement Cardiovascular: Regular rate, Regular Rhythm, Normal S1, Normal S2, No murmurs Abdomen: Bowel Sounds Present, Soft, Non Tender, Non-Distended, Obese Extremities: No clubbing, No cyanosis, No edema, Capillary Refill Less than 3 Seconds Skin: - - Left breast and right lower abdominal wounds status post I&D, wound VAC being placed. Musculoskeletal: No Tenderness to Palpation of Joints or Extremities Neurological: Cranial nerves II-XII grossly intact, Neuro grossly intact Psych/Mental Status: Normal Affect, Appropriate Vital Signs Temp Pulse Resp BP Pulse Ox 97.8 F 82 18 125/63 H 95 08/04/18 08:58 08/04/18 08:58 08/04/18 08:58 08/04/18 08:58 08/04/18 08:58 Oxygen Flow Rate (L/min) 2 Oxygen Delivery Method Nasal Cannula Weight: 258 lb 6.108 oz Body Mass Index (BMI) 47.2 Intake and Output for Last 24 Hours 08/02/18 08/03/18 08/04/18 23:59 23:59 23:59 Intake Total 300 / 1100 3278 / 3993 2243 / 2243 Balance 300 / 1100 3278 / 3993 2243 / 2243 Laboratory Tests Past 24 Hrs 08/04/18 08/04/18 06:25 06:25 WBC 14.9 H RBC 5.50 H Hgb 14.0 Hct 45.4 MCV 82.5 MCH 25.5 L MCHC 30.8 L RDW 15.8 H RDW Differential 47.9 H Plt Count 243 MPV 11.6 Sodium 138 Potassium 3.5 Chloride 101 Carbon Dioxide 33.0 H Anion Gap 4 L BUN 19 H Creatinine 0.67 Estim Creat Clear Calc 68.86 Est GFR (MDRD) Af Amer 115 Est GFR (MDRD) Non-Af 95 BUN/Creatinine Ratio 28.5 H Glucose 96 Calcium 9.6 Prealbumin 13.4 L Medical Necessity - Tobacco Use Smoking Status: Current every day smoker Tobacco Use: Cigarettes Assessment/Plan All Active Problems (Last Updated 08/02/18 @ 22:39 by James Lopez MD) Wound of left breast (Acute) Cellulitis and abscess of trunk (Acute) 1. Infected left breast and right lower abdominal wounds-management per Dr. Lopez. S/P surgical debridement 08/03/2018. Wound RN consult. Infectious disease consulted. PRN pain regimen. Continue IV meropenem. Culture 07/16/2017 + for Morganella, Providencia, Staphylococcus aureus, bacteroides fragilis, anaerobic cocci. PICC line in place. Wound VAC being placed today. Home with home health at discharge. Follow wound cultures. 2. CAD status post CABG-follows with Dr. Menendez. On aspirin, Plavix, metoprolol. Aspirin and Plavix can be held for surgery, CABG was in October 2011. Resume aspirin and Plavix when okay per Dr. Lopez. 3. Hypertension-stable, continue home losartan, metoprolol regimen. 4. Hyperlipidemia-continue statin. 5. Chronic COPD-no acute exacerbation. As needed albuterol aerosol. 6. Type 2 diabetes mellitus?-patient denies history of type 2 diabetes mellitus. However previously documented. Hemoglobin A1c 6.1% June 2017. Repeat hemoglobin A1C 6%. Carb controlled diet. 7. Tobacco dependence-current 2 pack/day smoker. Encourage cessation. Declines nicotine replacement patch. 8. Morbid obesity-encouraged diet and lifestyle modifications. Nutrition consult. 9. Depression/anxiety-continue home bupropion and sertraline regimen. DVT prophylaxis-Lovenox sc This patient was seen by CLARKE Goyal under the supervision of Dr. Daley.
--- NOTE | 2018-08-04 12:40 | PCM.PN.ID ---
Patient Problems: Active and Suspected Problems (Last Updated 08/02/18 @ 22:39 by James Lopez MD) Cellulitis and abscess of trunk (Acute) Subjective: Feeling ok, pain s/p OR, no fever, no n/v/d, no rash. - Physical Exam General: Alert, Cooperative, No apparent distress Lungs: Clear to auscultation, Normal air movement Cardiovascular: Regular rate, Regular Rhythm Abdomen: Soft, Non Tender, Non-Distended Skin: Ulcer/ Wound - reviewed photos Vital Signs Temp Pulse Resp BP Pulse Ox 97.8 F 82 18 125/63 H 95 08/04/18 08:58 08/04/18 08:58 08/04/18 08:58 08/04/18 08:58 08/04/18 08:58 Oxygen Flow Rate (L/min) 2 Oxygen Delivery Method Nasal Cannula Weight: 117.2 kg Body Mass Index (BMI) 47.2 Intake and Output for Last 24 Hours 08/02/18 08/03/18 08/04/18 23:59 23:59 23:59 Intake Total 300 / 1100 3278 / 3993 2243 / 2243 Balance 300 / 1100 3278 / 3993 2243 / 2243 Laboratory Tests Past 24 Hrs 08/04/18 08/04/18 06:25 06:25 WBC 14.9 H RBC 5.50 H Hgb 14.0 Hct 45.4 MCV 82.5 MCH 25.5 L MCHC 30.8 L RDW 15.8 H RDW Differential 47.9 H Plt Count 243 MPV 11.6 Sodium 138 Potassium 3.5 Chloride 101 Carbon Dioxide 33.0 H Anion Gap 4 L BUN 19 H Creatinine 0.67 Estim Creat Clear Calc 68.86 Est GFR (MDRD) Af Amer 115 Est GFR (MDRD) Non-Af 95 BUN/Creatinine Ratio 28.5 H Glucose 96 Calcium 9.6 Prealbumin 13.4 L Medical Necessity - Tobacco Use Smoking Status: Current every day smoker Tobacco Use: Cigarettes Route of nutrition/ use of supplements: [] Nutritional Intake: [] IV Site: [] Griffith Catheter: [] - Assessment/Plan Antibiotics: [] Assessment/Plan: [] Active and Suspected Problems (Last Updated 08/02/18 @ 22:39 by James Lopez MD) Cellulitis and abscess of trunk (Acute) OR 6/[address] Lopez for debridement. On ertapenem since 07/30. Wound cx with MSSA, morganella, providencia, bacteroides, and anaerobe. Changed erta to meropenem while inpatient. Surgical cx pending. Ok for d/c on ertapenem via picc for 7 more days. Wrote rx for labs and abx. Will follow, d/w Dr. Daley
[2018-08-04] MEDS: Acetaminophen 500 MG Tablet 1000 MG PO ×2 (13:27→22:26)
[2018-08-04 13:31] VITALS: BP 116/55; PULSE 71; RESP 18; TEMP 36.8; O2SAT 95
--- NOTE | 2018-08-04 14:10 | CASEMGMT ---
RN CM received update that patient will need IV ATBs at discharge. Script received and referral sent to [facility]. STEFFANY NINA awaiting call back from [facility]. [facility] updated regarding IV ATBs at discharge. CM will continue to follow-this patient and plan for a safe discharge.
--- NOTE | 2018-08-04 15:31 | NURSING ---
Home VAC approved. pt will most likely be discharged home tomorrow with home health for IV antibiotics and VAC changes.
--- NOTE | 2018-08-04 15:44 | CASEMGMT ---
STEFFANY NINA Face to Face with patient for initial transition planning/care coordination assessment. RN KELLE introduced self and role at [facility]. Patient lying in bed, alert and oriented. Patient willing to participate in assessment and is able to answer all questions appropriately. Care providers, pharmacy, and demographics verified. Patient wishes to discharge home with HHC to assist with wound vac changes. Patient states she has no further needs or concerns at this time. CM to follow for discharge planning needs that may arise. PCP: Festus Specialists: Shon, machine setter; [place], wound center Preferred Pharmacy: [facility] Insurance: MMO Prescription Benefit: yes Living Will/HPOA: none LNOK: Living Arrangements: Patient lives with in 1 story home with no steps to enter the home. Patient states she is independent in the home. Transportation: self/ DME/HHC: Patient denies any DME or previous HHC. Patient will need HHC for wound vac and possible IV ATBs. Patient would like [facility] for HHC. Referral made to [facility] and they are able to accept the patient. Disposition Plan: Patient to discharge home with HHC, family support, and follow-up plans in place. Brittany PRITCHARD, RN, CM
[2018-08-04] MEDS: Lactated Ringers 1,000 ML 60 ML IV (17:08)
[2018-08-04 19:38] VITALS: BP 105/47; PULSE 68; RESP 16; TEMP 36.6; O2SAT 97
[2018-08-04 22:20] VITALS: BP 102/67; PULSE 67; RESP 18; TEMP 36.4; O2SAT 93
[2018-08-04] MEDS: Simvastatin 10 MG Tablet 20 MG PO (22:26)
--- NOTE | 2018-08-04 23:45 | PCM.PN.SRG ---
Subjective: Postop #1 Patient has some wound pain. VAC applied today. Had some pain with the VAC dressing change. - Physical Exam General: Alert, Oriented x3 HEENT: PERRLA, EOMI Oral: Moist Mucosa Neck: Supple Abdomen: Soft, Non-Distended Skin: Ulcer/ Wound - left medial breast wound is stable. No active bleeding seen. VAC was applied today with some pain. right lower abdominal wall wound is stable. No active bleeding seen. VAC was applied today with some pain. Neurological: Cranial nerves II-XII grossly intact Psych/Mental Status: Normal Affect, Appropriate Vital Signs Temp Pulse Resp BP Pulse Ox 97.6 F L 67 18 102/67 93 08/04/18 22:20 08/04/18 22:20 08/04/18 22:20 08/04/18 22:20 08/04/18 22:20 Oxygen Flow Rate (L/min) 2 Oxygen Delivery Method Room Air Weight: 258 lb 6.108 oz Body Mass Index (BMI) 47.2 Intake and Output for Last 24 Hours 08/02/18 08/03/18 08/04/18 23:59 23:59 23:59 Intake Total 300 / 1100 3278 / 3993 3123 / 3123 Balance 300 / 1100 3278 / 3993 3123 / 3123 Microbiology Past 72 Hours 08/03/18 Unknown Gram Stain - Final Tissue - Abdominal 08/03/18 Unknown Gram Stain - Final Tissue - Breast Laboratory Tests Past 24 Hrs 08/04/18 08/04/18 06:25 06:25 WBC 14.9 H RBC 5.50 H Hgb 14.0 Hct 45.4 MCV 82.5 MCH 25.5 L MCHC 30.8 L RDW 15.8 H RDW Differential 47.9 H Plt Count 243 MPV 11.6 Sodium 138 Potassium 3.5 Chloride 101 Carbon Dioxide 33.0 H Anion Gap 4 L BUN 19 H Creatinine 0.67 Estim Creat Clear Calc 68.86 Est GFR (MDRD) Af Amer 115 Est GFR (MDRD) Non-Af 95 BUN/Creatinine Ratio 28.5 H Glucose 96 Calcium 9.6 Prealbumin 13.4 L Medical Necessity - Tobacco Use Smoking Status: Current every day smoker Tobacco Use: Cigarettes Assessment/Plan All Active Problems (Last Updated 08/02/18 @ 22:39 by James Lopez MD) Wound of left breast (Acute) Cellulitis and abscess of trunk (Acute) 1. 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 2. Nonhealing necrotizing infected diabetic hematoma ulcer abscess right lower abdominal wall. 3. Hematoma left medial breast, sequela. 4. Hematoma right lower abdominal wall, sequela. 5. Diabetes mellitus. 6. Smoker. Left medial breast and right lower abdominal wall wounds are stable. No active bleeding seen. VAC was applied today with some pain. Infectious Diseases recommended changing the Ertapenem to Meropenem while in the hospital. Operative cultures are pending. Preop cultures showed Morganella morganii, Providencia rettgeri, Staphylococcus aureus, Bacteroides fragilis, and Anaerobic cocci. Anticipate increased metabolic demands from the infection and from the surgery. Prealbumin was 13.4. Encourage nutritional supplementation with protein to help the healing process. Appreciate consultants input. Anticipate discharge in the next day or two based on weaning to po analgesia and getting the VAC approved. Encouraged patient to stop smoking as it may have deleterious effects on wound healing.
[2018-08-05 02:22] VITALS: BP 118/57; PULSE 67; RESP 18; TEMP 36.6; O2SAT 94
[2018-08-05] MEDS: HYDROmorphone 2 MG TABLET PO ×2 (02:28→09:54)
[2018-08-05] MEDS: 0.9% NaCl Peripheral Flush Adult/Peds IV ×3 (04:00→04:10)
[2018-08-05 04:23] LABS: Hematocrit 44.6 % (37-47); Hemoglobin 14.1 g/dl (12.0-15.0); Mean Corp Hgb Conc 31.6 g/gl (32-36); Mean Corpuscular Hgb 25.5 pg (27.0-32.0); Mean Corpuscular Volume 80.8 fL (81-99); Mean Platelet Vol. 11.5 fl (6.2-12.0); Platelet Count 255 K/mm3 (150-450); RBC Distribution Width CV 16.1 % (11.6-14.6); RBC Distribution Width SD 47.2 fl (35.1-43.9); Red Blood Count 5.52 M/mm3 (4.2-5.4); White Blood Count 11.3 K/mm3 (4.4-11.0)
[2018-08-05 04:28] LABS: Scan Indicated on CBC? Y/N NO
[2018-08-05 04:37] LABS: Anion Gap 6 (5-15); BUN 27 mg/dL (7-18); BUN/Creat Ratio 34.8 RATIO (10-20); Calcium,Total 9.7 mg/dL (8.5-10.1); Chloride 99 mmol/L (98-107); Creatinine, Serum 0.78 mg/dL (0.55-1.02); EST Glomerular Filtration Rate 80 mL/min (>60); Est Glom Filt Rate - Afr Amer 97 mL/min (>60); Estimated Creatinine Clearance 59.15 ml/min; Glucose 111 mg/dL (74-106); Potassium 3.8 mmol/L (3.5-5.1); Sodium Level 140 mmol/L (136-145)
[2018-08-05] MEDS: LORazepam 0.5 MG Tablet 0.25 MG PO (04:47)
[2018-08-05] MEDS: Enoxaparin 40 MG/0.4 ML Syringe SC (06:31)
[2018-08-05] MEDS: Nystatin Powder 15gm Bottle 1 APPLIC TOPICAL (06:32)
[2018-08-05 08:16] VITALS: BP 117/45; PULSE 70; RESP 18; TEMP 36.8; O2SAT 92
[2018-08-05] MEDS: Glucerna Shake 120 ML LIQUID PO (08:47)
[2018-08-05] MEDS: Losartan Potassium 100 MG Tablet PO (09:56)
[2018-08-05] MEDS: Docusate Sodium 100 MG Capsule PO (09:56)
[2018-08-05] MEDS: Isosorbide Mononitrate 30 MG Tablet PO (09:57)
[2018-08-05] MEDS: hydroCHLOROthiazide 25 MG Tablet PO (09:57)
[2018-08-05 09:58] VITALS: PULSE 70
[2018-08-05] MEDS: Metoprolol Tartrate 25 MG Tablet PO (09:58)
[2018-08-05] MEDS: buPROPion (XL) 300 MG TABLET.XL PO (09:59)
[2018-08-05] MEDS: Sertraline 100 MG Tablet PO (09:59)
--- NOTE | 2018-08-05 10:24 | PCM.PN.ID ---
Patient Problems: Active and Suspected Problems (Last Updated 08/02/18 @ 22:39 by James Lopez MD) Cellulitis and abscess of trunk (Acute) Subjective: Mild nausea, no fever, wound vacs in place - Physical Exam General: Alert, Cooperative, No apparent distress Lungs: Clear to auscultation, Normal air movement Cardiovascular: Regular rate, Regular Rhythm Abdomen: Soft, Non Tender, Non-Distended Skin: Ulcer/ Wound Vital Signs Temp Pulse Resp BP Pulse Ox 98.2 F 70 18 117/45 L 92 08/05/18 08:16 08/05/18 09:58 08/05/18 08:16 08/05/18 08:16 08/05/18 08:16 Oxygen Flow Rate (L/min) 2 Oxygen Delivery Method Room Air Weight: 117.2 kg Body Mass Index (BMI) 47.2 Intake and Output for Last 24 Hours 08/03/18 08/04/18 08/05/18 23:59 23:59 23:59 Intake Total 3278 / 3993 3123 / 4073 1519 / 1519 Balance 3278 / 3993 3123 / 4073 1519 / 1519 Microbiology Past 72 Hours 08/03/18 Unknown Gram Stain - Final Tissue - Breast Anaerobic Culture - Preliminary No growth in 48 hours. 08/03/18 Unknown Gram Stain - Final Tissue - Abdominal Anaerobic Culture - Preliminary No growth in 48 hours. Laboratory Tests Past 24 Hrs 08/05/18 08/05/18 04:10 04:10 WBC 11.3 H RBC 5.52 H Hgb 14.1 Hct 44.6 MCV 80.8 L MCH 25.5 L MCHC 31.6 L RDW 16.1 H RDW Differential 47.2 H Plt Count 255 MPV 11.5 Sodium 140 Potassium 3.8 Chloride 99 Carbon Dioxide 35.0 H Anion Gap 6 BUN 27 H Creatinine 0.78 Estim Creat Clear Calc 59.15 Est GFR (MDRD) Af Amer 97 Est GFR (MDRD) Non-Af 80 BUN/Creatinine Ratio 34.8 H Glucose 111 H Calcium 9.7 Medical Necessity - Tobacco Use Smoking Status: Current every day smoker Tobacco Use: Cigarettes Route of nutrition/ use of supplements: [] Nutritional Intake: [] IV Site: [] Griffith Catheter: [] - Assessment/Plan Antibiotics: [] Assessment/Plan: [] Active and Suspected Problems (Last Updated 08/02/18 @ 22:39 by James Lopez MD) Cellulitis and abscess of trunk (Acute) OR 08/[address] Lopez for debridement. On ertapenem since 07/30. Wound cx with MSSA, morganella, providencia, bacteroides, and anaerobe. Changed erta to meropenem while inpatient. Surgical cx neg so far Ok for d/c on ertapenem via picc for 7 more days. Wrote rx for labs and abx. Wrote for dose of erta this AM. ID followup as needed. Will follow, d/w primary team
--- NOTE | 2018-08-05 10:26 | PN.SURG_ITS ---
Subjective: Postop #[address] Minimal drainage in the canister. - Physical Exam General: Alert, Oriented x3 HEENT: PERRLA, EOMI Oral: Moist Mucosa Neck: Supple Abdomen: Soft, Non-Distended Skin: Ulcer/ Wound - left medial breast wound is stable. VAC in place. Minimal drainage in the canister. Neurological: Cranial nerves II-XII grossly intact Psych/Mental Status: Normal Affect, Appropriate Vital Signs Temp Pulse Resp BP Pulse Ox 98.2 F 70 18 117/45 L 92 08/05/18 08:16 08/05/18 09:58 08/05/18 08:16 08/05/18 08:16 08/05/18 08:16 Oxygen Flow Rate (L/min) 2 Oxygen Delivery Method Room Air Weight: 258 lb 6.108 oz Body Mass Index (BMI) 47.2 Intake and Output for Last 24 Hours 08/03/18 08/04/18 08/05/18 23:59 23:59 23:59 Intake Total 3278 / 3993 3123 / 4073 1519 / 1519 Balance 3278 / 3993 3123 / 4073 1519 / 1519 Microbiology Past 72 Hours 08/03/18 Unknown Gram Stain - Final Tissue - Breast Anaerobic Culture - Preliminary No growth in 48 hours. 08/03/18 Unknown Gram Stain - Final Tissue - Abdominal Anaerobic Culture - Preliminary No growth in 48 hours. Laboratory Tests Past 24 Hrs 08/05/18 08/05/18 04:10 04:10 WBC 11.3 H RBC 5.52 H Hgb 14.1 Hct 44.6 MCV 80.8 L MCH 25.5 L MCHC 31.6 L RDW 16.1 H RDW Differential 47.2 H Plt Count 255 MPV 11.5 Sodium 140 Potassium 3.8 Chloride 99 Carbon Dioxide 35.0 H Anion Gap 6 BUN 27 H Creatinine 0.78 Estim Creat Clear Calc 59.15 Est GFR (MDRD) Af Amer 97 Est GFR (MDRD) Non-Af 80 BUN/Creatinine Ratio 34.8 H Glucose 111 H Calcium 9.7 Medical Necessity - Tobacco Use Smoking Status: Current every day smoker Tobacco Use: Cigarettes Assessment/Plan All Active Problems (Last Updated 08/02/18 @ 22:39 by James Lopez MD) Wound of left breast (Acute) Cellulitis and abscess of trunk (Acute) 1. 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 2. Nonhealing necrotizing infected diabetic hematoma ulcer abscess right lower abdominal wall. 3. Hematoma left medial breast, sequela. 4. Hematoma right lower abdominal wall, sequela. 5. Diabetes mellitus. 6. Smoker. Left medial breast and right lower abdominal wall wounds are stable. VAC in place. Minimal drainage seen in the canister. VAC will be changed three times per week at 150 mmHg continuous suction. Operative cultures are pending. Preop cultures showed Morganella morganii, P rovidencia rettgeri, Staphylococcus aureus, Bacteroides fragilis, and Anaerobic cocci. Will send home on Ertapenem for an additional week. Anticipate increased metabolic demands from the infection and from the surgery. Prealbumin was 13.4. Encourage nutritional supplementation with protein to help the healing process. VAC is approved. Discharge home today. Encouraged patient to stop smoking as it may have deleterious effects on wound healing. Wrote scripts for Percocet for pain (60 tabs) and for Ativan for spasm (30 tabs). Wrote scripts for Phenergan for nausea (30 tabs) and a refill and for Colace for constipation (60 tabs). After discharge, followup at the [facility].
--- NOTE | 2018-08-05 10:40 | DCINST_ITS ---
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 elevate head. May shower in (days): 2 - may shower at the time of the vac dressing changes. May resume sexual activity in: No Restrictions Weight Bearing Status: Weight bearing as tolerated Lifting Restrictions: 20 lbs. Keep extremity elevated above heart level: - - elevate head. Call your doctor if your incision/area has: Continuous Slow Oozing, Sudden Increased Bleeding, Increased Pain/ Swelling, Increased Redness, Foul Smelling Discharge, Swelling at the incision site Call your doctor if you observe: Fever of 101 or Higher, Coldness, Increased Pain, Shortness of breath, Chest pain, Calf discomfort, Uncontrolled pain Suture Line Care: - - vac changes three times per week at 150 mmHg continuous suction. Change Dressing in (Days):: 2 - vac changes three times per week. Cleanse incision/area with: Soap & Water - may cleanse the wounds with soap and water at the time of the vac change., - - may shower on the days the vac is changed. Allergies/Adverse Reactions: Allergies cephalexin [From Keflex] Allergy (Severe, Verified 07/30/18 13:50) Rash levofloxacin [From Levaquin] Allergy (Severe, Verified 07/30/18 13:50) Rash niacin Allergy (Severe, Verified 07/30/18 13:50) Rash Penicillins Allergy (Severe, Verified 07/30/18 13:50) Anaphylaxis Sulfa (Sulfonamide Antibiotics) Allergy (Severe, Verified 07/30/18 13:50) Rash citalopram [From Celexa] Adverse Reaction (Severe, Verified 07/30/18 13:50) Rash Estrogens Adverse Reaction (Severe, Verified 07/30/18 13:50) blood clots rosuvastatin [From Crestor] Adverse Reaction (Severe, Verified 07/30/18 13:50) myalgias oral contraceptives Adverse Reaction (Severe, Uncoded 07/30/18 13:50) Unknown Medications to take at Discharge losartan 100 mg-hydrochlorothiazide 25 mg tablet 1 tab PO DAILY 07/02/17 metoprolol tartrate 25 mg tablet 25 mg PO BID 07/02/17 sertraline 100 mg tablet 100 mg PO QDAY 07/02/17 simvastatin 20 mg tablet 20 mg PO QPM 07/02/17 isosorbide mononitrate ER 30 mg tablet,extended release 24 hr 30 mg PO QAM #30 tab 07/08/17 clopidogrel 75 mg tablet 75 mg PO QDAY #90 tab 11/23/17 Bupropion HCl [Bupropion Xl] 300 mg PO DAILY 07/20/18 Nystatin Powder [Mycostatin Powder] 1 applic TOPICAL TID #2 bottle 07/20/18 traMADol [Ultram] 50 mg PO Q6H PRN PRN 07/20/18 Ertapenem Sodium [Ertapenem] 0 gm IV DAILY 7 Days #7 vial 08/04/18 Docusate Sodium [Colace] 100 mg PO BID #60 cap 08/05/18 Hydrochlorothiazide [Hctz] 25 mg PO DAILY tablet 08/05/18 Lorazepam [Ativan] 1 mg PO TID PRN PRN #30 tab 08/05/18 Losartan Potassium [Cozaar] 100 mg PO DAILY tablet 08/05/18 proMETHazine tablet [Phenergan tablet] 25 mg PO 4X/DAY PRN PRN #30 tab 08/05/18 The following prescriptions were given: Lorazepam [Ativan] 1 mg PO TID PRN PRN #30 tab PRN Reason: Spasms Prescription Printed Docusate Sodium [Colace] 100 mg PO BID #60 cap Prescription Printed Ertapenem Sodium [Ertapenem] 0 gm IV DAILY 7 Days #7 vial Prescription Printed proMETHazine tablet [Phenergan tablet] 25 mg PO 4X/DAY PRN PRN #30 tab PRN Reason: NAUSEA/VOMITING Prescription Printed Primary Care Physician: Manuel Mortensen [Primary Care Provider] - Test Results: Test results from this visit will be discussed in further detail at your follow- up appointment, if applicable. Please Follow Up With: Jolanta Schafer DO When: 1-2 weeks at wound center. call [phone] for appt. Please Follow Up With: Tammy Andrade NP-C When: 1-2 weeks at wound center. call [phone] for appt. Please Follow Up With: James Lopez MD When: 4 weeks at wound center. call [phone] for appt. Proposed Discharge Date: 08/05/18
--- NOTE | 2018-08-05 11:06 | NURSING ---
Pt switched over to the home VAC. reviewed alarms, changing canister etc. with patient. denies questions at this time.
--- NOTE | 2018-08-05 11:45 | PN_ITS ---
Patient Problems: Active and Suspected Problems (Last Updated 08/02/18 @ 22:39 by James Lopez MD) Cellulitis and abscess of trunk (Acute) Subjective: Pt resting comfortably in chair at bedside NAD. No fevers/ chills. Pain mild. No LH/Dizziness. Pt planning for home today with wound vac and o/p abx - Anika. - Physical Exam General: Alert, Oriented x3, Cooperative HEENT: Atraumatic, PERRLA, EOMI, Normocephalic Neck: Supple, No JVD, Negative Carotid Bruits Lungs: Clear to auscultation, Normal air movement Cardiovascular: Regular rate, No murmurs Abdomen: Bowel Sounds Present, Soft, Non Tender, Obese Extremities: No edema, Capillary Refill Less than 3 Seconds Skin: No rashes, No breakdown Musculoskeletal: No Tenderness to Palpation of Joints or Extremities Neurological: Cranial nerves II-XII grossly intact Psych/Mental Status: Normal Affect, Appropriate, Alert and oriented to time, place, person, mood and affect Vital Signs Temp Pulse Resp BP Pulse Ox 98.2 F 70 18 117/45 L 92 08/05/18 08:16 08/05/18 09:58 08/05/18 08:16 08/05/18 08:16 08/05/18 08:16 Oxygen Flow Rate (L/min) 2 Oxygen Delivery Method Room Air Weight: 258 lb 6.108 oz Body Mass Index (BMI) 47.2 Intake and Output for Last 24 Hours 08/03/18 08/04/18 08/05/18 23:59 23:59 23:59 Intake Total 3278 / 3993 3123 / 4073 1519 / 1519 Balance 3278 / 3993 3123 / 4073 1519 / 1519 Microbiology Past 72 Hours 08/03/18 Unknown Gram Stain - Final Tissue - Breast Wound Culture - Preliminary No growth-Final to follow Anaerobic Culture - Preliminary No growth in 48 hours. 08/03/18 Unknown Gram Stain - Final Tissue - Abdominal Wound Culture - Preliminary Anaerobic Culture - Preliminary No growth in 48 hours. Laboratory Tests Past 24 Hrs 08/05/18 08/05/18 04:10 04:10 WBC 11.3 H RBC 5.52 H Hgb 14.1 Hct 44.6 MCV 80.8 L MCH 25.5 L MCHC 31.6 L RDW 16.1 H RDW Differential 47.2 H Plt Count 255 MPV 11.5 Sodium 140 Potassium 3.8 Chloride 99 Carbon Dioxide 35.0 H Anion Gap 6 BUN 27 H Creatinine 0.78 Estim Creat Clear Calc 59.15 Est GFR (MDRD) Af Amer 97 Est GFR (MDRD) Non-Af 80 BUN/Creatinine Ratio 34.8 H Glucose 111 H Calcium 9.7 Medical Necessity - Tobacco Use Smoking Status: Current every day smoker Tobacco Use: Cigarettes Assessment/Plan All Active Problems (Last Updated 08/02/18 @ 22:39 by James Lopez MD) Wound of left breast (Acute) Cellulitis and abscess of trunk (Acute) 1. Infected left breast and right lower abdominal wounds - s/p debridement 08/[address] Lopez. Wound vac in place - change to home vac and continue o/p home care / wound care. PICC in place. Continue IV Ertapenem at ri. Cultures showed Morganella, Providencia, MSSA, Bacteroides fragilis, anaerobes. -Afebrile, WBCs improved. ID following. -complicated by hx nicotine abuse and DMt2 2. CAD - prior CABG 2011, pt of Dr. Menendez. Asa/plavix/metoprolol/statin. 3. HTN - stable 4. HLD - statin 5. COPD - stable. prn aerosols. no exacerbation. Needs smoking cessation. 6. T2DM - A1C 6.1% - on diet control only. Repeat a1C q3-4 mos and reassess therapy. Likely will complicate wound healing. 7. Tobacco abuse - smokes 2ppd. Did not want patch. 8. Morbid obesity - needs weight loss, lifestyle modification, possibly medically assisted - follow up as o/p with PCP. 9. Depression / Anxiety - wellbutrin/zoloft. DVT ppx: lovenox Thank you for the opportunity to participate in the care of this patient. This patient was seen by Addi Alejandra PA-C under the supervision of Doctor Garcia.
--- NOTE | 2018-08-05 16:58 | PCM.DC.SUM ---
Discharge Date and Diagnosis Date of Admission: 08/02/18 Date of Discharge: 08/05/18 - Primary Discharge Diagnosis Nonhealing necrotizing infected diabetic hematoma ulcer abscess left medial breast. Nonhealing necrotizing infected diabetic hematoma ulcer abscess right lower abdominal wall. - Secondary Discharge Diagnosis Hematoma left medial breast, sequela. Hematoma right lower abdominal wall, sequela. Diabetes mellitus. Smoker. Old myocardial infarction Abnormal stress test Aortocoronary bypass status Atherosclerotic heart disease of [place] coronary artery without angina pectoris Hypertension Hyperlipidemia Morbid obesity Hospital Course and Treatment Imaging Results: Chest X-Ray 08/02/18 19:47 IMPRESSION: Normal x-ray examination of the chest. Electronically Signed: Johny Kirkland DO at 20:05 EDT Tel [phone], Service support , Consultations 08/03/18 08:52 Consult: Onc/Wound/biofuels technology manager Routine Comment: Reason for Consult:: Left breast, right abdominal wounds. Hospitalist Group - Dr. Hernandez and Dr. Daley. Infectious Diseases - Dr. Perea. Operations: - - 08/03/18 - 1. Surgical preparation left medial breast with incision and drainage and excisional debridement nonhealing necrotizing infected diabetic hematoma ulcer abscess and partial mastectomy (70 cm2). 2. Surgical preparation right lower abdominal wall with incision and drainage and excisional debridement nonhealing necrotizing infected diabetic hematoma ulcer abscess and abdominall panniculectomy (300 cm2). Procedures: PICC line placement, Wound vac placement Summary of Care Provided: The patient is a 62 year old F who had trauma to her left medial breast and right lower abdominal wall from her dog jumping on her repeatedly about 2 months ago. Developed painful, red, necrotic ulcers in these areas. CT Chest on 07/14/18 showed no breast abscesses or suspicious masses. It showed minimal cutaneous thickening along the medial aspect of the left breast. Neither a draining wound or underlying breast pathology are apparent, however. Wound culture on 07/16/18 showed Morganella morganii, Providencia rettgeri, Staphylococcus aureus, Bacteroides fragilis, and Anaerobic cocci. She was started on outpatient IM Ertapenem. I saw her today at the [facility] for the first time. She had necrotic ulcerations in her left medial breast and right lower abdominal wall. There was surrounding redness and increasing tenderness. With a questionable history of diabetes, it was recommended to the patient to be admitted for IV antibiotic therapy in preparation for operative intervention with incision and drainage and excisional debridement of these necrotizing infected hematoma ulcer abscesses to minimize a more systemic spread of the infection. Due to the anticipated large wounds that will be created, patient will need the VAC postoperatively. She denies fever at home. Her WBC on 07/20/18 was elevated at 13.5. Today on admission, her WBC was 14.7. Her HgbA1c was 6.0. The next day, 08/03/18, the patient went to surgery and underwent surgical preparation left medial breast with incision and drainage and excisional debridement nonhealing necrotizing infected diabetic hematoma ulcer abscess and partial mastectomy (70 cm2) and surgical preparation right lower abdominal wall with incision and drainage and excisional debridement nonhealing necrotizing infected diabetic hematoma ulcer abscess and abdominal panniculectomy (300 cm2). She tolerated the procedure well. The VAC was placed the next day without difficulty. Hospitalist Group was consulted for medical management. Infectious Diseases was consulted for antibiotic management. While hospitalized, the Ertapenem was changed to Meropenem. During her hospital stay, her operative cultures were negative at the time of discharge. She was discharged on Ertapenem through the PICC line for an additional 7 days. If the operative culture becomes positive, antibiotic modification may be necessary. Preop cultures showed Morganella morganii, Providencia rettgeri, Staphylococcus aureus, Bacteroides fragilis, and Anaerobic cocci. Anticipate increased metabolic demands from the infection and from the surgery. Prealbumin was 13.4. Encourage nutritional supplementation with protein to help the healing process. On the third hospital day (2nd postop day) she was tolerating po analgesia. The VAC became approved and she was discharged home in satisfactory condition. VAC will be changed three times per week at 150 mmHg continuous suction. Home Health will assist with the VAC changes. Encouraged patient to stop smoking as it may have deleterious effects on wound healing. Wrote scripts for Percocet for pain (60 tabs) and for Ativan for spasm (30 tabs). Wrote scripts for Phenergan for nausea (30 tabs) and a refill and for Colace for constipation (60 tabs). After discharge, followup at the Wound Center. Her condition upon discharge was stable. - Physical Exam Vital Signs Temp Pulse Resp BP Pulse Ox 98.2 F 70 18 117/45 L 92 08/05/18 08:16 08/05/18 09:58 08/05/18 08:16 08/05/18 08:16 08/05/18 08:16 Oxygen Flow Rate (L/min) 2 Oxygen Delivery Method Room Air Weight: 258 lb 6.108 oz Body Mass Index (BMI) 47.2 Intake and Output for Last 24 Hours 08/04/18 08/05/18 08/06/18 23:59 23:59 23:59 Intake Total 3123 / 4073 1519 / 1519 Balance 3123 / 4073 1519 / 1519 Microbiology Past 72 Hours 08/03/18 Unknown Gram Stain - Final Tissue - Abdominal Wound Culture - Preliminary No growth-Final to follow Anaerobic Culture - Preliminary No growth in 48 hours. 08/03/18 Unknown Gram Stain - Final Tissue - Breast Wound Culture - Preliminary No growth-Final to follow Anaerobic Culture - Preliminary No growth in 48 hours. Discharge Diet: Carb Control Diet, - - encourage nutritional supplementation with protein to help the healing process. Discharge Activity: May not drive while taking narcotic pain medications., May Shower - at the time of the dressing changes., - - no heavy lifting. elevate head. May shower in (days): 2 - may shower at the time of the vac dressing changes. May resume sexual activity in: No Restrictions Weight Bearing Status: Weight bearing as tolerated Lifting Restrict to (lbs):: 20 Keep extremity elevated above heart level: - - elevate head. Call your doctor if your incision/area has: Continuous Slow Oozing, Sudden Increased Bleeding, Increased Pain/ Swelling, Increased Redness, Foul Smelling Discharge, Swelling at the incision site Call your doctor if you observe: Fever of 101 or Higher, Coldness, Increased Pain, Shortness of breath, Chest pain, Calf discomfort, Uncontrolled pain Suture Line Care: - - vac changes three times per week at 150 mmHg continuous suction. Change Dressing in (Days):: 2 - vac changes three times per week. Cleanse incision/area with: Soap & Water - may cleanse the wounds with soap and water at the time of the vac change., - - may shower on the days the vac is changed. Home Medications: Medications to take at Discharge losartan 100 mg-hydrochlorothiazide 25 mg tablet 1 tab PO DAILY 07/02/17 metoprolol tartrate 25 mg tablet 25 mg PO BID 07/02/17 sertraline 100 mg tablet 100 mg PO QDAY 07/02/17 simvastatin 20 mg tablet 20 mg PO QPM 07/02/17 isosorbide mononitrate ER 30 mg tablet,extended release 24 hr 30 mg PO QAM #30 tab 07/08/17 clopidogrel 75 mg tablet 75 mg PO QDAY #90 tab 11/23/17 Bupropion HCl [Bupropion Xl] 300 mg PO DAILY 07/20/18 Nystatin Powder [Mycostatin Powder] 1 applic TOPICAL TID #2 bottle 07/20/18 traMADol [Ultram] 50 mg PO Q6H PRN PRN 07/20/18 Ertapenem Sodium [Ertapenem] 0 gm IV DAILY 7 Days #7 vial 08/04/18 Docusate Sodium [Colace] 100 mg PO BID #60 cap 08/05/18 Hydrochlorothiazide [Hctz] 25 mg PO DAILY tab 08/05/18 Lorazepam [Ativan] 1 mg PO TID PRN PRN #30 tab 08/05/18 Losartan Potassium [Cozaar] 100 mg PO DAILY tab 08/05/18 Oxycodone HCl/Acetaminophen [Percocet 5/325] 1 - 2 tab PO 4X/DAY PRN PRN 7 Days #60 tab 08/05/18 proMETHazine tablet [Phenergan tablet] 25 mg PO 4X/DAY PRN PRN #30 tab 08/05/18 Following Prescrptions Were Given to Patient: Lorazepam [Ativan] 1 mg PO TID PRN PRN #30 tab PRN Reason: Spasms Prescription Printed Docusate Sodium [Colace] 100 mg PO BID #60 cap Prescription Printed Ertapenem Sodium [Ertapenem] 0 gm IV DAILY 7 Days #7 vial Prescription Printed Oxycodone HCl/Acetaminophen [Percocet 5/325] 1 - 2 tab PO 4X/DAY PRN PRN 7 Days #60 tab PRN Reason: Pain Prescription Printed proMETHazine tablet [Phenergan tablet] 25 mg PO 4X/DAY PRN PRN #30 tab PRN Reason: NAUSEA/VOMITING Prescription Printed Primary Care Physician: Manuel Mortensen [Primary Care Provider] - Please Follow Up With: Jolanta Schafer DO When: 1-2 weeks at wound center. call [phone] for appt. Please Follow Up With: Tammy Andrade NP-C When: 1-2 weeks at wound center. call [phone] for appt. Please Follow Up With: James Lopez MD When: 4 weeks at wound center. call [phone] for appt. Disposition: Home with Home Health Minutes spent on discharge:: 35 Patient Condition:: Stable Medical Necessity - Tobacco Use Smoking Status: Current every day smoker Tobacco Use: Cigarettes Meaningful Use Info Meaningful Use Diagnoses (Choose all that apply): None applicable
== END 2018-08-05 11:58 | disposition home or self-care (01) | DRG 571 ==
PROVIDERS: Anesthesiology; Nurse Practitioner Family; Admitting Provider Surgery; Family Provider Family Medicine; Referring Provider Surgery; Visit Provider Surgery
PROC: 0HBU0ZZ Excision of Left Breast, Open Approach (ICD-10-PCS; principal; 2018-08-03 12:50)
DX: N61.1 Abscess of the breast and nipple (principal); L02.211 Cutaneous abscess of abdominal wall; Z68.42 Body mass index [BMI] 45.0-49.9, adult; S20.02XA Contusion of left breast, initial encounter; S30.1XXA Contusion of abdominal wall, initial encounter; I25.10 Atherosclerotic heart disease of native coronary artery without angina pectoris; E66.01 Morbid (severe) obesity due to excess calories; I10 Essential (primary) hypertension; E78.5 Hyperlipidemia, unspecified; F17.210 Nicotine dependence, cigarettes, uncomplicated; W54.1XXA Struck by dog, initial encounter; Z95.1 Presence of aortocoronary bypass graft; I25.2 Old myocardial infarction; J44.9 Chronic obstructive pulmonary disease, unspecified; E11.9 Type 2 diabetes mellitus without complications
CPT/HCPCS: 36415; 36569; 71045; 80048; 80053; 83036; 84134; 84443; 85027; 85652; 86140; 87070; 87075; 87077; 87102; 87106; 87176; 87186; 87205; 87206; 88304; 93005; 97802; 99406; J2185; J7120; A4216; J2405

== ENCOUNTER 2018-08-09 15:44 | Emergency (ER) | payer OTHER, SELFPAY ==
[2017-07-08 11:20] VITALS: BMI 52.1
[2018-08-03 11:53] VITALS: BMI 47.2
[2018-08-09 15:45] VITALS: BP 121/68; PULSE 92; RESP 16; TEMP 36.6; O2SAT 91; BMI 47.2
--- NOTE | 2018-08-09 16:18 | ED.DCSUM_ITS ---
- ER Visit Summary Date of Service: 08/09/18 Chief Complaint: [Wound check] History of Present Illness: The patient is a 62 F [since the emergency department requesting a wound check. Patient was evaluated by her home health nurse today and an attempt was made to change the dressing to her open wounds. Patient just 5 days ago had surgery for large hematomas on her left breast and right lower abdomen and subsequently wounds were packed and a wound VAC was applied. While undressing the wound to the right lower abdomen apparently there was significant bleeding so the nurse repacked the wound about half an hour ago and sent her to the ER for further evaluation. Patient also has the left breast wound that the home health nurse would not remove the packing from that skin and need to be changed as well. Patient denies any fevers. Patient has history of coronary artery disease, hypertension, high cholesterol, and history of endometrial cancer.] Physical Examination: [HEENT-PERRLA, EOMI. Cranial nerves II through XII grossly intact. TMs clear. Mucous membranes moist. No adenopathy. Cardiovascular-regular rate and rhythm without murmur or ectopy. Left breast- patient has a large open wound to the anterior aspect of the breast with dark foam-like packing adherent to the wound but does not easily removed. There is no active bleeding. Lungs-clear to auscultation, chest wall stable without crepitus or subcu emphysema Abdomen-normoactive bowel sounds, soft, nontender, no rebound or rigidity, no peritoneal signs. Patient has a large open wound to the right lower abdomen/pannus with gauze packing that I was able to remove easily to inspect the wound and do not appreciate any significant active bleeding. Extremities-intact ?4, normal range of motion, normal pulses, atraumatic] Test Results: None indicated] Emergency Department Course and Treatment: [Case was discussed with Dr. Lopez who asked that we try to remove the foam dressing out of the breast wound and apply wet to dry dressings to both wounds and then have patient follow-up with wound VAC nurse tomorrow to have the wound VAC reapplied.] Treatment Plan: [Dressing change and follow-up with home health for wound VAC application tomorrow] Disposition: [Discharged home in stable condition] Impression: [Wound check-bleeding resolved New dressing to wounds] This note was generated with [employer] software. It may contain incorrect words, spelling, and punctuation that were not noted in review of the chart prior to signing ED Disposition - Plan for ED Patient: Referrals: Manuel Mortensen [Primary Care Provider] -
--- NOTE | 2018-08-09 17:12 | ED.DEP ---
ED Disposition - Plan for ED Patient: Instructions: POST OP WOUND CHECK, Bleeding Referrals: Manuel Mortensen [Primary Care Provider] - Additional Instructions: See wound nurse tomorrow to have wound vac reapplied
[2018-08-09] MEDS: Ondansetron 4 MG/2 ML Vial IM (17:51)
[2018-08-09] MEDS: Morphine 4 MG/ML Syringe IM (17:51)
== END 2018-08-09 18:31 | disposition home or self-care (01) ==
LOC: ED 16:24
PROVIDERS: Emergency Provider Emergency Medicine; Family Provider Family Medicine
DX: Z48.01 Encounter for change or removal of surgical wound dressing (principal); I25.10 Atherosclerotic heart disease of native coronary artery without angina pectoris; E78.00 Pure hypercholesterolemia, unspecified; I10 Essential (primary) hypertension; Z85.42 Personal history of malignant neoplasm of other parts of uterus; Z79.899 Other long term (current) drug therapy; Z72.0 Tobacco use
CPT/HCPCS: 96372; 99283; A4216; J2405

== ENCOUNTER 2018-08-10 14:21 | Outpatient (RCR) | payer OTHER, SELFPAY ==
[2017-07-08 11:20] VITALS: BMI 52.1
[2018-08-09 15:45] VITALS: BMI 47.2
[2018-08-10 14:57] LABS: Hemoglobin 13.6 g/dl (12.0-15.0); Mean Corp Hgb Conc 30.9 g/gl (32-36); Mean Corpuscular Hgb 25.1 pg (27.0-32.0); Mean Corpuscular Volume 81.3 fL (81-99); Mean Platelet Vol. 11.7 fl (6.2-12.0); Platelet Count 384 K/mm3 (150-450); RBC Distribution Width CV 16.5 % (11.6-14.6); RBC Distribution Width SD 48.6 fl (35.1-43.9); Red Blood Count 5.41 M/mm3 (4.2-5.4); White Blood Count 19.1 K/mm3 (4.4-11.0)
[2018-08-10 15:00] LABS: Scan Indicated on CBC? Y/N NO
[2018-08-10 15:11] LABS: AST(SGOT) 10 U/L (15-37); Alanine Aminotransfer ALT/SGPT 10 U/L (13-56); Albumin, Serum 2.6 g/dL (3.2-5.0); Alkaline Phosphatase 89 U/L (45-117); Anion Gap 9 (5-15); BUN 13 mg/dL (7-18); BUN/Creat Ratio 13.3 RATIO (10-20); Calcium,Total 10.1 mg/dL (8.5-10.1); Chloride 99 mmol/L (98-107); Creatinine, Serum 0.98 mg/dL (0.55-1.02); EST Glomerular Filtration Rate 61 mL/min (>60); Est Glom Filt Rate - Afr Amer 74 mL/min (>60); Globulin 4.8 g/dL (2.2-4.2); Glucose 82 mg/dL (74-106); Potassium 3.5 mmol/L (3.5-5.1); Protein, Total 7.4 g/dL (6.4-8.2); Sodium Level 136 mmol/L (136-145)
== END 2018-09-08 23:59 ==
LOC: LABSPEC 14:21
PROVIDERS: Family Provider Family Medicine; Referring Provider Internal Medicine Infectious Disease; Visit Provider Internal Medicine Infectious Disease
DX: N61.1 Abscess of the breast and nipple (principal)
CPT/HCPCS: 80048; 80076; 85027

== ENCOUNTER 2018-08-18 11:10 | Outpatient (RCR) | payer OTHER, SELFPAY ==
[2017-07-08 11:20] VITALS: BMI 52.1
[2018-08-03 11:53] VITALS: BMI 47.2
[2018-08-09 00:58] VITALS: BP 138/77; PULSE 83; RESP 18; TEMP 36.1
--- NOTE | 2018-08-18 19:13 | HP.PCM_ITS ---
(1) Open wound of right lower quadrant of abdominal wall without penetration into peritoneal cavity Status: Chronic Current Visit: Yes Qualifiers: Code(s): S31.103A - Unspecified open wound of abdominal wall, right lower quadrant without penetration into peritoneal cavity, initial encounter (2) Traumatic hematoma of female breast Status: Chronic Current Visit: Yes Code(s): S20.00XA - Contusion of breast, unspecified breast, initial encounter (3) Type 2 diabetes mellitus Status: Chronic Current Visit: Yes Qualifiers: Code(s): E11.9 - Type 2 diabetes mellitus without complications (4) Wound of left breast Status: Chronic Current Visit: Yes Qualifiers: Code(s): S21.002A - Unspecified open wound of left breast, initial encounter History of Present Illness Date of Service: 08/18/18 Chief Complaint: open wounds of left breast and right lower abdomen History of Wound: Ms. Degroot is a 62-year-old who recently had surgical debridement of left breast and right lower abdomen status post abscesses/nonhealing wounds of both areas. Surgery was uneventful and she was discharge with a wound VAC/home health care. Since hospital discharge, she states that there has been significant difficulty largely due to pain with change in the wound VAC. However pain said to have become more severe on Thursday. Also reports increased drainage from both areas. She reports feeling unwell. Was on Ertapenem after hospital discharge and she states that she completed her dose. History of type 2 diabetes mellitus. 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 exposed (Chronic) Abscess of abdominal wall (Chronic) Abscess of left breast (Chronic) Wound of left breast (Chronic) Open wound of right lower quadrant of abdominal wall without penetration into peritoneal cavity (Chronic) Traumatic hematoma of abdominal wall (Chronic) Traumatic hematoma of female breast (Chronic) Old myocardial infarction (Chronic) Abnormal stress test (Chronic) Type 2 diabetes mellitus (Chronic) Aortocoronary bypass status (Chronic) CABG x2- DENNIS to LAd, SVG to Diagonal of the LAD 10/31/11 Atherosclerotic heart disease of [place] coronary artery without angina pectoris (Chronic) CABG x2- DENNIS to LAD, SVG to Diagonal of the LAD 10/31/11 Hypertension (Chronic) Hyperlipidemia (Chronic) Tobacco use disorder (Chronic) Morbid obesity (Chronic) Surgical History: coronary bypass surgery, hysterectomy, tonsillectomy Allergies/Adverse Reactions: Allergies cephalexin [From Keflex] Allergy (Severe, Verified 07/30/18 13:50) Rash levofloxacin [From Levaquin] Allergy (Severe, Verified 07/30/18 13:50) Rash niacin Allergy (Severe, Verified 07/30/18 13:50) Rash Penicillins Allergy (Severe, Verified 07/30/18 13:50) Anaphylaxis Sulfa (Sulfonamide Antibiotics) Allergy (Severe, Verified 07/30/18 13:50) Rash citalopram [From Celexa] Adverse Reaction (Severe, Verified 07/30/18 13:50) Rash Estrogens Adverse Reaction (Severe, Verified 07/30/18 13:50) blood clots rosuvastatin [From Crestor] Adverse Reaction (Severe, Verified 07/30/18 13:50) myalgias oral contraceptives Adverse Reaction (Severe, Uncoded 07/30/18 13:50) Unknown Home Medications: Ambulatory Orders Medication Instructions Recorded losartan 100 1 tab PO DAILY 07/02/17 mg-hydrochlorothiazide 25 mg tablet sertraline 100 mg tablet 100 mg PO DAILY 07/02/17 isosorbide mononitrate ER 30 mg 30 mg PO QAM #30 tab 07/08/17 tablet,extended release 24 hr Bupropion HCl [Bupropion Xl] 300 mg PO DAILY 07/20/18 Clopidogrel Bisulfate [Clopidogrel] 75 mg PO DAILY 08/18/18 Diazepam [Valium] 5 mg PO 4X/DAY 08/18/18 Docusate Sodium [Colace] 100 mg PO DAILY 08/18/18 Hydromorphone HCl 2 mg PO Q4H PRN PRN 08/18/18 Metoprolol Tartrate [Lopressor 25 mg PO BID 08/18/18 (beta nayeli)] Oxycodone HCl/Acetaminophen 1 - 2 tab PO 4X/DAY 08/18/18 [Oxycodone-Acetaminophen 5-325] Simvastatin 20 mg PO QHS 08/18/18 Smoking Status: Current every day smoker Tobacco Use: Cigarettes Review of Systems Constitutional: Reports: Malaise, Weakness Eyes: Denies: Pain, Redness HEENT: Denies: Difficulty Hearing Cardiovascular: Reports: Chest Pain. Denies: Chest Pressure Respiratory: Denies: Hemoptysis Gastrointestinal: Reports: Abdominal Pain. Denies: Hematemesis Skin: Reports: Jaundice - Physical Exam Vital Signs Temp Pulse Resp BP 96.9 F L 83 18 138/77 H 08/09/18 00:58 08/09/18 00:58 08/09/18 00:58 08/09/18 00:58 General: Alert, Oriented x3, Cooperative, Lethargic HEENT: Atraumatic, Normocephalic Oral: Moist Mucosa Neck: Supple Lungs: Normal air movement Abdomen: Obese, Tender Extremities: No cyanosis Skin: Ulcer/ Wound Wound Measurements and Assessment WC - Nurse 2 - General Ulcer CM Notes Start: 08/18/18 12:50 Freq: Status: Active Protocol: Activity Type Activity Date Activity User E-Sign Co-Sign Detail Recorded Client Recorded Date Recorded By Document 08/18/18 12:50 MW [id number] 08/18/18 13:13 MW 08/18/18 12:50 Wound Center Nurse 2 [Procedure/Treatment] #6 RIGHT LOWER ABD POST OP -Time 13:11 -Correct Patient Yes -Correct Side, Site, Position Yes -Correct Procedure Yes -Procedure Performed No -Post Debridement Size (cm) - Length 28.0 -Post Debridement Size (cm) - Width 6.0 -Post Debridement Size (cm) - Depth 5.6 -Total Square Cm 168.00 -Wound/Ulcer Outcome Not Healed -Ulcer Cleansing Not Cleansed -Foul Odor after Cleansing No -Bleeding Controlled with NA -Offloading No -Treatment Response Procedure Not Tolerated Well #5 LEFT BREAST POST OP -Time 13:10 -Correct Patient Yes -Correct Side, Site, Position Yes -Correct Procedure Yes -Procedure Performed No -Post Debridement Size (cm) - Length 10.5 -Post Debridement Size (cm) - Width 4.2 -Post Debridement Size (cm) - Depth 5.6 -Total Square Cm 44.10 -Wound/Ulcer Outcome Not Healed -Ulcer Cleansing Not Cleansed -Foul Odor after Cleansing No -Bleeding Controlled with NA -Offloading No -Treatment Response Procedure Not Tolerated Well #2 right lower abd -Time 12:59 [See Physician Procedure note for Specifics] Pain Scale: 0-10 Numeric [Pain] -Is Patient Pain Free? No [Location] LEFT BREAST/ RIGHT AB POST OP -Description Sharp -Intensity 10 Query Text:If >3, intervention needed -Duration (hours) Acute -Pain Behavior Moaning,Crying, Guarding,Facial Grimacing, Thrashing -Pain Aggravating Factors ADL's, Debridement -Alleviating Factors/Interventions Medicate when due -Effectiveness of Alleviating Factor/ Not effective Intervention Neurological: Cranial nerves II-XII grossly intact Psych/Mental Status: Normal Affect Debridement Note Post-Debridement Measurements/Treatment WC - Nurse 2 - General Ulcer CM Notes Start: 08/18/18 12:50 Freq: Status: Active Protocol: Activity Type Activity Date Activity User E-Sign Co-Sign Detail Recorded Client Recorded Date Recorded By Document 08/18/18 12:50 MW [id number] 08/18/18 13:13 MW 08/18/18 12:50 Wound Center Nurse 2 #6 RIGHT LOWER ABD POST OP -Time 13:11 -Correct Patient Yes -Correct Side, Site, Position Yes -Correct Procedure Yes -Procedure Performed No -Post Debridement Size (cm) - Length 28.0 -Post Debridement Size (cm) - Width 6.0 -Post Debridement Size (cm) - Depth 5.6 -Total Square Cm 168.00 -Wound/Ulcer Outcome Not Healed -Ulcer Cleansing Not Cleansed -Foul Odor after Cleansing No -Bleeding Controlled with NA -Offloading No -Treatment Response Procedure Not Tolerated Well #5 LEFT BREAST POST OP -Time 13:10 -Correct Patient Yes -Correct Side, Site, Position Yes -Correct Procedure Yes -Procedure Performed No -Post Debridement Size (cm) - Length 10.5 -Post Debridement Size (cm) - Width 4.2 -Post Debridement Size (cm) - Depth 5.6 -Total Square Cm 44.10 -Wound/Ulcer Outcome Not Healed -Ulcer Cleansing Not Cleansed -Foul Odor after Cleansing No -Bleeding Controlled with NA -Offloading No -Treatment Response Procedure Not Tolerated Well #2 right lower abd -Time 12:59 Pain Scale: 0-10 Numeric Is Patient Pain Free? No LEFT BREAST/ RIGHT AB POST OP -Description Sharp -Intensity 10 Query Text:If >3, intervention needed -Duration (hours) Acute -Pain Behavior Moaning,Crying, Guarding,Facial Grimacing, Thrashing -Pain Aggravating Factors ADL's, Debridement -Alleviating Factors/Interventions Medicate when due -Effectiveness of Alleviating Factor/ Not effective Intervention No debridement was completed today Assessment/Plan Active Problems (Last Updated 08/02/18 @ 22:39 by James Lopez MD) Wound of left breast (Chronic) Open wound of right lower quadrant of abdominal wall without penetration into peritoneal cavity (Chronic) Traumatic hematoma of female breast (Chronic) Type 2 diabetes mellitus (Chronic) Assessment: traumatic wounds of left breast and right lower abdomen due to hematomas Plan: No debridement completed today. Significant tenderness especially to the left breast area. Slough and areas of necrotic tissue noted. Periwound eryt augie. Foul smell appreciated. Patient also lethargic. It appears that she would need further debridement which can not be done outpatient due to significant tenderness. Also concern for postoperative infection and she has several antibiotic allergies. Will likely require IV antibiotics. Discussed with [facility] ER physician. Also attempted to reach Dr. Lopez. All their questions were answered them as advised with any questions or concerns. This note was generated with [employer] dictation software. It may contain incorrect words, spelling, and punctuation that were not noted in checking the note before signing.
== END 2018-09-08 23:59 ==
LOC: WC 11:10
PROVIDERS: Family Provider Family Medicine; Visit Provider Family Medicine
DX: S20.02XS Contusion of left breast, sequela (principal); E11.9 Type 2 diabetes mellitus without complications; W54.1XXS Struck by dog, sequela; S21.002S Unspecified open wound of left breast, sequela; S31.103S Unspecified open wound of abdominal wall, right lower quadrant without penetration into peritoneal cavity, sequela; I25.2 Old myocardial infarction; E78.5 Hyperlipidemia, unspecified; I10 Essential (primary) hypertension; E66.01 Morbid (severe) obesity due to excess calories; Z71.3 Dietary counseling and surveillance; Z95.1 Presence of aortocoronary bypass graft; I25.10 Atherosclerotic heart disease of native coronary artery without angina pectoris; Z79.899 Other long term (current) drug therapy; Z79.02 Long term (current) use of antithrombotics/antiplatelets; F17.210 Nicotine dependence, cigarettes, uncomplicated
CPT/HCPCS: 99213; G0463

== ENCOUNTER 2018-08-18 15:08 | Inpatient (IN) | payer OTHER, SELFPAY ==
[2017-07-08 11:20] VITALS: BMI 52.1
[2018-08-18] VITALS (9 sets, daily range): BP systolic 72–109; BP diastolic 31–68; PULSE 73–85; RESP 15–18; TEMP 36.5–37.2; O2SAT 94–96; BMI 48.8; BMI 45.7
--- NOTE | 2018-08-18 15:44 | RAD_ITS ---
STUDY: X-RAY CHEST REASON FOR EXAM: Female, 62 years old. Hypotension TECHNIQUE: Frontal and lateral views of the chest COMPARISON: 07/04/2017 FINDINGS: The lungs are clear. There are no pleural effusions. There is no pneumothorax. The heart is normal in size. Again noted are sternotomy wires. The visualized osseous structures are within normal limits. RAD/Chest PA and Lateral IMPRESSION: No acute thoracic pathology. Electronically Signed: Fabrice Irving, at 16:38 EDT Tel , Service support ,
--- NOTE | 2018-08-18 15:48 | EKG12_ITS ---
Test Reason : WOUND Blood Pressure : / mmHG Vent. Rate : 075 BPM Atrial Rate : 075 BPM P-R Int : 166 ms QRS Dur : 114 ms QT Int : 404 ms P-R-T Axes : 009 022 074 degrees QTc Int : 451 ms Normal sinus rhythm Incomplete left bundle branch block Nonspecific ST and T wave abnormality Abnormal ECG Confirmed by ODALIS IRIZARRY, CARLIN ([id number]), medical editor ADRIAN CARVER ([id number]) on 08/20/2018 12:29:53 PM Referred By: Nyasia Shah Confirmed By:TERESITA JACOBO MD
--- NOTE | 2018-08-18 15:50 | ED.VISSUMM ---
- ER Visit Summary Date of Service: 08/18/18 Chief Complaint: Generalized weakness and low blood pressure History of Present Illness: The patient is a 62 F status post left breast and right lower abdominal wall hematoma debridements that were infected. This was surgically debrided and the drain 08/03/2018. Patient's been doing well. Today went to wound care center since just has not been feeling quite right and they sent her to the ER to be evaluated. Normally she is treated for hypertension and is on medications for that but her blood pressures have been running low recently. She denies any fever. She denies any nausea, vomiting or diarrhea. No melena. No chest pain. No cough. No leg pain or swelling. Debrided wounds but otherwise states she feels well. Physical Examination: This nice older female no acute distress currently her blood pressure 72/31 in triage when I was in room is 90/56. She is awake alert and talking. She is afebrile with a temperature 97.7. She does not look septic or toxic. H EENT exam dry mucous membranes. Neck nontender no lymphadenopathy. Primary actively. No facial droop. Normal speech. Lungs clear to auscultation bilaterally. Heart regular rate and rhythm rate about 80 no murmur. Chest wall she is a large wound in the left breast has been debrided there is a large tissue deficit but it does appear to be healing. There is no pus or surrounding cellulitis. The area is tender. Abdomen is soft. The abdomen is nontender except there is a right lower quadrant large wound from an infected hematoma that was drained again is tender but does not acutely look infected. Patient is moving all 4 extremities. Neurovascular intact. Calves are nontender without edema. Neurologically she is awake and alert with no focal motor deficits. Test Results: Chest x-ray 2 views read by myself and radiologist shows no acute abnormality. EKG sinus rhythm rate of 75 no acute signs of ischemia. Unchanged from prior EKG. Also incomplete left bundle branch block that is unchanged. CBC shows a white count of 23,800. Hemoglobin of 12. Chemistries show potassium of 3, anion gap of 8 and a creatinine of 1.8 consistent with acute kidney injury. Urinalysis is pending. They need to straight cath the patient. She tried to urinate for us and missed. Troponin normal. Lactate elevated 2.2. Blood cultures x2 are pending. Emergency Department Course and Treatment: Patient is running a low blood pressure. She will be treated with 2 L of normal saline. And be worked up for cause of her hypotension. After the first liter of fluid the patient's pressure is currently 101/68. They are currently hanging her antibiotics which are clindamycin and vancomycin. She has numerous antibiotics allergies and that is why there is were chosen. Treatment Plan: I have already spoken to the hospitalist. Since the patient is responding IV fluids he preferred that she be admitted to the PCU. Disposition: Admission Impression: Acute hypotension Acute sepsis Leukocytosis Acute kidney injury Acute hypokalemia. Critical care time 35 minutes Status post left breast and right lower quadrant hematoma debridements This note was generated with [employer] dictation software. It may contain incorrect words, spelling, and punctuation that were not noted in review of the chart prior to signing ED Disposition - Plan for ED Patient: Referrals: Manuel Mortensen [Primary Care Provider] -
[2018-08-18] MEDS: 0.9% Normal Saline 1,000 ML 1000 ML IV ×2 (16:00→17:09)
[2018-08-18 16:16] LABS: Absolute Lymphocyte Count 2.32 X10^3/ul (0.83-4.51); Absolute Neutrophil Count 18.6 X10^3/uL (2.0-7.7); Basophil# 0.07 X10^3/uL; Basophil% 0.3 % (0-1); Differential Indicated SCAN CRITERIA MET; Eosinophil# 0.25 X10^3/uL; Hematocrit 37.3 % (37-47); Lymphocyte # 2.32 X10^3/ul (4.0); Lymphocyte % 9.7 % (19-41); Mean Corp Hgb Conc 32.2 g/gl (32-36); Mean Corpuscular Hgb 25.8 pg (27.0-32.0); Mean Corpuscular Volume 80.2 fL (81-99); Mean Platelet Vol. 10.4 fl (6.2-12.0); Monocyte# 2.29 X10^3/uL; Monocyte% 9.6 % (0-10); Neutrophil % 78.1 % (47-70); POSITIVE COUNT NO; POSITIVE DIFFERENTIAL YES; POSITIVE MORPHOLOGY NO; Platelet Count 563 K/mm3 (150-450); RBC Distribution Width CV 15.9 % (11.6-14.6); Red Blood Count 4.65 M/mm3 (4.2-5.4); White Blood Count 23.8 K/mm3 (4.4-11.0)
[2018-08-18 16:20] LABS: Anion Gap 8 (5-15); BUN 26 mg/dL (7-18); BUN/Creat Ratio 14.1 RATIO (10-20); Calcium,Total 10.4 mg/dL (8.5-10.1); Chloride 99 mmol/L (98-107); Creatinine, Serum 1.84 mg/dL (0.55-1.02); EST Glomerular Filtration Rate 30 mL/min (>60); Est Glom Filt Rate - Afr Amer 36 mL/min (>60); Estimated Creatinine Clearance 25.07 ml/min; Glucose 105 mg/dL (74-106); Sodium Level 137 mmol/L (136-145)
[2018-08-18 16:24] LABS: Lactic Acid 2.2 mmol/L (0.4-2.0)
[2018-08-18 16:31] LABS: Differential Comment SCANNED
[2018-08-18] MEDS: HYDROcodone Bitartrate/Apap 5/325 Tablet PO (17:08)
--- NOTE | 2018-08-18 17:41 | NURSING ---
[facility] HYPOTENSION, NATHALIE, HYPOKALEMIA
--- NOTE | 2018-08-18 17:52 | PCM.HP.STD ---
Problem List (1) Abdominal panniculus, symptomatic Status: Chronic (2) Ulcer of abdomen wall with fat layer exposed Status: Chronic (3) Abscess of left breast Status: Chronic (4) Wound of left breast Status: Chronic Qualifiers: (5) Traumatic hematoma of female breast Status: Chronic (6) Old myocardial infarction Status: Chronic (7) Type 2 diabetes mellitus Status: Chronic Qualifiers: (8) Aortocoronary bypass status Status: Chronic Comment: CABG x2- DENNIS to LAd, SVG to Diagonal of the LAD 10/31/11 (9) Atherosclerotic heart disease of [place] coronary artery without angina pectoris Status: Chronic Qualifiers: Comment: CABG x2- DENNIS to LAD, SVG to Diagonal of the LAD 10/31/11 (10) Hypertension Status: Chronic Qualifiers: (11) Hyperlipidemia Status: Chronic Qualifiers: (12) Tobacco use disorder Status: Chronic History of Present Illness Date of Admission: 08/18/18 Chief Complaint: Weakness, low blood pressure. The patient is a 62 year old F with past medical history as mentioned above was sent from the wound care center to the ED for evaluation for being not feeling well, weakness and low blood pressure. Today, patient went to the wound care center for follow-up after she had a recent left breast surgery for nonhealing necrotizing infected hematoma/ulcer/abscess as well as nonhealing infected diabetic hematoma/ulcer of the right lower abdominal wall. Patient complained that she has been feeling weak and tired over the last few days, not having energy and her mentioned that she has been confused at times. At this time, she is alert and related x3. She complains of lower right abdominal pain because the nurse was changing the dressing on the wound. She denies fever chills. She denies cough or sputum production. She denied nausea vomiting. She denies urinary symptoms. She denies chest pain or shortness of breath. She has a history of CAD status post CABG and she has been on Plavix, nitrate, losartan and metoprolol she has been stable. She has history of type 2 diabetes mellitus which has been controlled by diet and her hemoglobin A1c was 6 on August 02, 2018. She has history of hypertension and it is usually controlled with nitrates, losartan, HCTZ and metoprolol. In the emergency department, initial blood pressure was 72/31, received IV fluid bolus and it is improved to 105/53. she was afebrile, heart rate was stable, pulse ox was 96% on room air. Her routine blood work was remarkable for significant leukocytosis with neutrophilia, potassium is 3, BUN is 26 and creatinine is 1.84. Her lactic acid was 2.2. EKG revealed normal sinus rhythm with incomplete LBBB, no acute ischemic changes, troponin was negative. Chest x-ray showed no acute findings. She is being admitted for severe sepsis with unclear source of infection, could be the infected left breast and right lower abdominal wall wound and also found to have acute kidney injury and hypokalemia. Past Medical History Past Medical History (Chronic Problems): Chronic Problems (Last Updated 08/02/18 @ 22:39 by James Lopez MD) Abdominal panniculus, symptomatic (Chronic) 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 exposed (Chronic) Abscess of abdominal wall (Chronic) Abscess of left breast (Chronic) Wound of left breast (Chronic) Open wound of right lower quadrant of abdominal wall without penetration into peritoneal cavity (Chronic) Traumatic hematoma of abdominal wall (Chronic) Traumatic hematoma of female breast (Chronic) Old myocardial infarction (Chronic) Abnormal stress test (Chronic) Type 2 diabetes mellitus (Chronic) Aortocoronary bypass status (Chronic) CABG x2- DENNIS to LAd, SVG to Diagonal of the LAD 10/31/11 Atherosclerotic heart disease of [place] coronary artery without angina pectoris (Chronic) CABG x2- DENNIS to LAD, SVG to Diagonal of the LAD 10/31/11 Hypertension (Chronic) Hyperlipidemia (Chronic) Tobacco use disorder (Chronic) Morbid obesity (Chronic) Medical History: Medical History (Last Updated 08/02/18 @ 22:39 by James Lopez MD) Old myocardial infarction (Chronic) I25.2 Abnormal stress test (Chronic) R94.39 Type 2 diabetes mellitus (Chronic) E11.9 Atherosclerotic heart disease of [place] coronary artery without angina pectoris (Chronic) I25.10 CABG x2- DENNIS to LAD, SVG to Diagonal of the LAD 10/31/11 Hypertension (Chronic) I10 Hyperlipidemia (Chronic) E78.5 Tobacco use disorder (Chronic) F17.200 Morbid obesity (Chronic) E66.01 Anxiety state F41.1 Encephalitis G04.90 as a child History of DVT (deep vein thrombosis) Z86.718 COPD (chronic obstructive pulmonary disease) J44.9 Diverticulosis K57.90 History of uterine cancer Z85.42 Allergies cephalexin [From Keflex] Allergy (Severe, Verified 07/30/18 13:50) Rash levofloxacin [From Levaquin] Allergy (Severe, Verified 07/30/18 13:50) Rash niacin Allergy (Severe, Verified 07/30/18 13:50) Rash Penicillins Allergy (Severe, Verified 07/30/18 13:50) Anaphylaxis Sulfa (Sulfonamide Antibiotics) Allergy (Severe, Verified 07/30/18 13:50) Rash citalopram [From Celexa] Adverse Reaction (Severe, Verified 07/30/18 13:50) Rash Estrogens Adverse Reaction (Severe, Verified 07/30/18 13:50) blood clots rosuvastatin [From Crestor] Adverse Reaction (Severe, Verified 07/30/18 13:50) myalgias oral contraceptives Adverse Reaction (Severe, Uncoded 07/30/18 13:50) Unknown Home Medications: Ambulatory Orders Medication Instructions Recorded losartan 100 1 tab PO DAILY 07/02/17 mg-hydrochlorothiazide 25 mg tablet sertraline 100 mg tablet 100 mg PO DAILY 07/02/17 isosorbide mononitrate ER 30 mg 30 mg PO QAM #30 tab 07/08/17 tablet,extended release 24 hr Bupropion HCl [Bupropion Xl] 300 mg PO DAILY 07/20/18 Clopidogrel Bisulfate [Clopidogrel] 75 mg PO DAILY 08/18/18 Diazepam [Valium] 5 mg PO 4X/DAY 08/18/18 Docusate Sodium [Colace] 100 mg PO DAILY 08/18/18 Hydromorphone HCl 2 mg PO Q4H PRN PRN 08/18/18 Metoprolol Tartrate [Lopressor 25 mg PO BID 08/18/18 (beta nayeli)] Oxycodone HCl/Acetaminophen 1 - 2 tab PO 4X/DAY 08/18/18 [Oxycodone-Acetaminophen 5-325] Simvastatin 20 mg PO QHS 08/18/18 Surgical History: Surgical History (Last Reviewed 08/02/18 @ 19:05 by Gianluca Hernandez DO) Aortocoronary bypass status (Chronic) Z95.1 CABG x2- DENNIS to LAd, SVG to Diagonal of the LAD 10/31/11 History of tonsillectomy Z90.89 History of total hysterectomy Z90.710 History of tubal ligation Z98.51 Surgical History: coronary bypass surgery, hysterectomy, tonsillectomy 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, Depression BREWERY REPRESENTATIVE 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: No pertinent BREWERY REPRESENTATIVE history Lives: Spouse/ Significant Other Smoking Status: Current every day smoker Tobacco Use: Cigarettes Alcohol: None Drugs: None - *Family History Maternal Family History: Family History (Last Reviewed 08/02/18 @ 19:05 by Gianluca Hernandez DO) Father CAD (coronary artery disease) Cancer Mother CVA (cerebral vascular accident) Hypertension History Items: No pertinent history Paternal Family History: Family History (Last Reviewed 08/02/18 @ 19:05 by Gianluca Hernandez DO) Father CAD (coronary artery disease) Cancer Mother CVA (cerebral vascular accident) Hypertension History Items: No pertinent history Review of Systems Constitutional: Reports: Weakness. Denies: Anorexia, Chills, Fever Eyes: Denies: Blurred vision, Double vision, Drainage, Redness HEENT: Denies: Difficulty Hearing, Ear Pain, Eye Pain, Nasal Congestion, Sore Throat Cardiovascular: Denies: Chest Pain, Chest Pressure, Chest Tightness, Heaviness, Light Headedness, Palpitations, Syncope Respiratory: Denies: Cough, Hemoptysis, Pleuritic Pain, Shortness of Breath, Sputum production, Wheezing Gastrointestinal: Reports: Abdominal Pain - Reported abdominal pain when changing dressing only.. Denies: Constipation, Diarrhea, Nausea, Vomiting Genitourinary: Denies: Dysuria, Frequency, Hematuria Musculoskeletal: Denies: Arm Pain, Back Pain, Foot Pain Skin: Reports: Wounds. Denies: Dryness, Rash Neurological: Denies: Balance problems, Double vision, Change in Speech, Focal weakness, Incoordination Psychiatric: Denies: Anxiety, Depression Endocrine: Denies: Change in Body Habitus, Polydipsia, Polyuria VTE Information - Inpt Only VTE Present on Admission: No VTE Mechan Device Prophylaxis: None VTE Pharm Prophylaxis ordered?: Yes - Physical Exam General: Alert, Oriented x3, Cooperative, - - She is in pain because nurse was changing her dressing. HEENT: Atraumatic, PERRLA, EOMI, Normocephalic Oral: Moist Mucosa, No Gingival or Mucosal Lesions/ Ulcerations Neck: Supple, No JVD, Negative Carotid Bruits, Trachea Midline, Thyroid Normal Size and Texture Lungs: Clear to auscultation, Normal air movement, No rhonchi, No wheeze, No rales, Diminished Cardiovascular: Regular rate, Regular Rhythm, Normal S1, Normal S2, No murmurs, PMI Normal Abdomen: Bowel Sounds Present, Soft, Non Tender, Non-Distended, No Hepato-splenomegaly, Obese Extremities: No clubbing, No cyanosis, Edema - Trace edema. Skin: No rashes, Ulcer/ Wound, - - Left breast: There is a large wound on the medial lower quadrant of the left breast measuring about 12 x 3 cm, deep, surrounded by mild erythema, granulation tissue, no pus or drainage. Right lower abdominal wall: Very large open wound measuring about 32 cm x 4 cm, deep, surrounded by mild erythema, no pus or drainage. Lymphatic: No Cervical, Supraclavicular, or Inguinal Adenopathy Neurological: Cranial nerves II-XII grossly intact, Motor Exam 5/5 strength throughout Psych/Mental Status: Normal Affect, Appropriate, Alert and oriented to time, place, person, mood and affect Vital Signs Temp Pulse Resp BP Pulse Ox 97.7 F L 79 18 101/57 L 96 08/18/18 16:01 08/18/18 16:05 08/18/18 16:05 08/18/18 16:53 08/18/18 16:01 Oxygen Delivery Method Room Air Weight: 267 lb Body Mass Index (BMI) 48.8 Laboratory Tests Past 24 Hrs 08/18/18 08/18/18 08/18/18 15:25 15:25 15:25 WBC 23.8 H RBC 4.65 Hgb 12.0 Hct 37.3 MCV 80.2 L MCH 25.8 L MCHC 32.2 RDW 15.9 H RDW Differential 46.0 H Plt Count 563 H MPV 10.4 Immature Gran % (Auto) 1.300 H Neut % (Auto) 78.1 H Lymph % (Auto) 9.7 L [place] % (Auto) 9.6 Eos % (Auto) 1.0 Baso % (Auto) 0.3 Absolute Neuts (auto) 18.6 H Absolute Lymphs (auto) 2.32 Total Counted Not Reportable Differential Comment SCANNED Sodium 137 Potassium 3.0 L Chloride 99 Carbon Dioxide 30.0 Anion Gap 8 BUN 26 H Creatinine 1.84 H Estim Creat Clear Calc 25.07 Est GFR (MDRD) Af Amer 36 L Est GFR (MDRD) Non-Af 30 L BUN/Creatinine Ratio 14.1 Glucose 105 Lactic Acid 2.2 H Calcium 10.4 H Troponin I 0.017 Clinical Impression(s) from Imaging Studies Chest X-Ray 08/18/18 15:44 IMPRESSION: No acute thoracic pathology. Electronically Signed: Fabrice Irving, at 16:38 EDT Tel , Service support , Assessment/Plan This is a 62 years old female patient was sent from the [facility] care center for weakness and low blood pressure, found to have severe sepsis without obvious source of infection but it could be due to infected wound of the left breast as well as right lower abdominal wall and also found to have acute kidney injury and hypokalemia. #1 severe sepsis: Unclear etiology but probably due to infected wound of the left breast as well as right lower abdominal wall although both wounds looked not overtly infected, no drainage. Blood pressure improved after IV fluid bolus. She does have leukocytosis, afebrile, lactic acid was 2.2. Plan: Admit to PCU, cardiac monitoring, blood culture, wound culture, MRSA wound screen, urinalysis, urine culture, start IV vancomycin and aztreonam, Tylenol as needed, IV fluids, repeat lactic acid in 3 hours, plastic surgery consult, repeat CBC and BMP tomorrow morning, PT OT evaluation and treatment. #2 acute kidney injury/hypokalemia: Likely because of severe sepsis as well as losartan and HCTZ. Baseline kidney function is normal. Plan: IV fluids, replace potassium, input output chart, hold losartan and HCTZ, repeat BMP tomorrow morning. #3 recent history of left breast nonhealing necrotizing infected hematoma/ulcer/abscess status post incision/drainage/partial mastectomy and excisional debridement: The wound looks mildly erythematous, no drainage or pus, not obviously infected. Plan to start empiric IV antibiotics, wound culture, plastic surgery consult. #4 recent history of Nonhealing necrotizing infected diabetic hematoma/ulcer/abscess of the right lower abdominal wall: Status post incision, drainage and excisional debridement as well as abdominal panniculectomy. Again, the wound does not look badly infected, plan as above. #5 CAD status post CABG: Stable, no chest pain, troponin is negative. Continue Plavix, nitrates, metoprolol and statins. #6 hypertension: Blood pressure was low but improved with IV fluid bolus. Plan to hold losartan and HCTZ as well as nitrates, continue to follow. #7 type 2 diabetes mellitus: Diet-controlled. She is not on any medication for it. #8 depression/anxiety: Continue sertraline and bupropion. #9 hyperlipidemia: Continue statins. #10 COPD exacerbation: Clinically stable, pulse ox is maintained on room air. Plan for albuterol as needed. #11 DVT prophylaxis: Subcu heparin. This note was generated with [employer] dictation software. It may contain incorrect words, spelling, and punctuation that were not noted in checking the note before signing. Code Visit Inpatient E&M: 19884 Init Hosp L3
--- NOTE | 2018-08-18 19:47 | PCM.RX.CS ---
Consult Pharmacy has been consulted to manage selected antiobiotic: Vancomycin Type of Consult: New start Suspected Infection: Sepsis Prior Doses of Antibiotics Received/Current Regimen: VANCOMYCIN 1500MG IV X1 IN ED 08/18 @1912 Labs: Sodium 137 mmol/L (136-145) 08/18/18 15:25 Potassium 3.0 mmol/L (3.5-5.1) L 08/18/18 15:25 Chloride 99 mmol/L (98-107) 08/18/18 15:25 Carbon Dioxide 30.0 mmol/L (21.0-32.0) 08/18/18 15:25 8 (5-15) 08/18/18 15:25 BUN 26 mg/dL (7-18) H 08/18/18 15:25 1.84 mg/dL (0.55-1.02) H 08/18/18 15:25 Est GFR (MDRD) Af Amer 36 mL/min (>60) L 08/18/18 15:25 Est GFR (MDRD) Non-Af 30 mL/min (>60) L 08/18/18 15:25 14.1 RATIO (-20) 08/18/18 15:25 Glucose 105 mg/dL (74-106) 08/18/18 15:25 Weight used for dosin kg Estimated Creatinine Clearance: 25ML/MIN Goal Trough: 15-20 mcg/mL Pharmacy Plan for Drug Dosing: PLAN/RECOMMENDATIONS 1. Vancomycin 1250mg IV Q24hr to start 08/19/18 @1900 2. Trough scheduled prior to 3rd total dose 08/20/18 @1830 per protocol 3. Pharmacy Service will continue to monitor and adjust dosing as required.
[2018-08-18 19:59] LABS: Reflex Lactate? Y
[2018-08-18] MEDS: oxyCODONE 5 MG Tablet PO (20:42)
[2018-08-18] MEDS: Morphine 2 MG/ML Syringe IV (21:34)
[2018-08-18] MEDS: 0.9% NaCl Peripheral Flush Adult/Peds IV (21:35)
[2018-08-18] MEDS: Heparin Injection (Vial) 5,000 UNIT/ML VIAL 5000 UNIT SC (21:53)
[2018-08-18] MEDS: Atorvastatin Calcium 10 MG Tablet PO (21:54)
[2018-08-18 22:30] LABS: Lactic Acid 3.4 mmol/L (0.4-2.0)
[2018-08-19] VITALS (20 sets, daily range): BP systolic 95–135; BP diastolic 49–84; PULSE 64–99; RESP 16–18; TEMP 36.1–36.8; O2SAT 92–100; BMI 45.7
[2018-08-19 00:34] LABS: Red Blood Cells-Urine 0 SEEN /hpf (0-5); White Blood Cells 0 SEEN /hpf (0-5)
[2018-08-19 00:35] LABS: Glucose, Dipstick Normal (Normal); Ketone-Dipstick Negative (Negative); Leukocyte Esterase-Dipstick Negative /ul (Negative); Nitrite-Dipstick Negative (Negative); Occult Blood-Urine Negative /ul (Negative); Protein-Dipstick Negative (Negative); Specific Gravity, Urine 1.015 (1.002-1.030); Urine Bilirubin Dipstick Negative (Negative); Urine Urobilinogen Normal (Normal)
[2018-08-19 00:37] LABS: Color, Urine Yellow (Yellow); Urine Clarity Clear (Clear)
[2018-08-19 00:43] LABS: Bacteria RARE /hpf (None Seen); Hyaline Cast 0-5 SEEN /lpf (0-5); Mucous, Urine RARE /hpf (<or=2+); Squamous Epithelial Cells - UA 0-5 SEEN /hpf (5-10)
[2018-08-19] MEDS: oxyCODONE 5 MG Tablet PO ×2 (01:06→09:13)
[2018-08-19] MEDS: Acetaminophen 325 MG Tablet 650 MG PO ×2 (01:06→09:14)
[2018-08-19 01:21] LABS: M R Staph aureus DNA By PCR Negative (Negative); Probe Check PASS; Specimen Processing Control PASS; Staph aureus DNA By PCR NEGATIVE (Negative)
[2018-08-19 04:22] LABS: M R Staph aureus DNA By PCR Negative (Negative); Probe Check PASS; Specimen Processing Control PASS; Staph aureus DNA By PCR NEGATIVE (Negative)
[2018-08-19] MEDS: Morphine 2 MG/ML Syringe IV (05:26)
[2018-08-19] MEDS: 0.9% NaCl Peripheral Flush Adult/Peds IV ×2 (05:26→21:13)
[2018-08-19] MEDS: 0.9% Normal Saline 1,000 ML 125 ML IV ×2 (05:32→09:20)
[2018-08-19 07:36] LABS: Absolute Lymphocyte Count 1.73 X10^3/ul (0.83-4.51); Absolute Neutrophil Count 11.6 X10^3/uL (2.0-7.7); Basophil# 0.04 X10^3/uL; Basophil% 0.3 % (0-1); Eosinophil# 0.21 X10^3/uL; Eosinophils% 1.4 % (0-5); Hemoglobin 10.4 g/dl (12.0-15.0); Lymphocyte # 1.73 X10^3/ul (4.0); Lymphocyte % 11.3 % (19-41); Mean Corp Hgb Conc 31.5 g/gl (32-36); Mean Corpuscular Hgb 25.4 pg (27.0-32.0); Mean Corpuscular Volume 80.5 fL (81-99); Monocyte# 1.59 X10^3/uL; Monocyte% 10.4 % (0-10); Neutrophil # 11.58 X10^3/uL (2.7-7.7); Neutrophil % 75.6 % (47-70); Platelet Count 383 K/mm3 (150-450); RBC Distribution Width CV 15.9 % (11.6-14.6); RBC Distribution Width SD 46.3 fl (35.1-43.9); White Blood Count 15.3 K/mm3 (4.4-11.0)
[2018-08-19 07:37] LABS: Anion Gap 8 (5-15); BUN 24 mg/dL (7-18); BUN/Creat Ratio 18.3 RATIO (10-20); Calcium,Total 9.3 mg/dL (8.5-10.1); Chloride 107 mmol/L (98-107); Creatinine, Serum 1.31 mg/dL (0.55-1.02); EST Glomerular Filtration Rate 44 mL/min (>60); Est Glom Filt Rate - Afr Amer 53 mL/min (>60); Estimated Creatinine Clearance 35.22 ml/min; Glucose 94 mg/dL (74-106); Potassium 2.9 mmol/L (3.5-5.1); Sodium Level 141 mmol/L (136-145)
[2018-08-19 07:39] LABS: Differential Indicated SCAN CRITERIA MET; POSITIVE COUNT NO; POSITIVE DIFFERENTIAL YES; POSITIVE MORPHOLOGY NO
[2018-08-19] MEDS: Metoprolol Tartrate 25 MG Tablet PO ×2 (09:20→21:12)
[2018-08-19] MEDS: Clopidogrel Bisulfate 75 MG Tablet PO (09:20)
[2018-08-19] MEDS: buPROPion (XL) 300 MG TABLET.XL PO (09:20)
[2018-08-19] MEDS: Sertraline 100 MG Tablet PO (09:20)
[2018-08-19] MEDS: diazePAM 5 MG Tablet PO (09:20)
--- NOTE | 2018-08-19 09:29 | PCM.HP.BLA ---
History and Physical Date of Admission: 08/19/18 History of Present Illness Date of Admission: 08/02/18 Chief Complaint: Infected diabetic hematoma ulcer abscesses left medial breast and right lower abdominal wall. The patient is a 62 year old F who had trauma to her left medial breast and right lower abdominal wall from her dog jumping on her repeatedly about 2 months ago. Developed painful, red, necrotic ulcers in these areas. CT Chest on 07/14/18 showed no breast abscesses or suspicious masses. It showed minimal cutaneous thickening along the medial aspect of the left breast. Neither a draining wound or underlying breast pathology are apparent, however. Wound culture on 07/16/18 showed Morganella morganii, Providencia rettgeri, Staphylococcus aureus, Bacteroides fragilis, and Anaerobic cocci. She was started on outpatient IM Ertapenem. I saw her today at the Wound Center for the first time. She had necrotic ulcerations in her left medial breast and right lower abdominal wall. There was surrounding redness and increasing tenderness. With a questionable history of diabetes, it was recommended to the patient to be admitted for IV antibiotic therapy in preparation for operative intervention with incision and drainage and excisional debridement of these necrotizing infected hematoma ulcer abscesses to minimize a more systemic spread of the infection. Due to the anticipated large wounds that will be created, patient will need the VAC postoperatively. She denies fever at home. Her WBC on 07/20/18 was elevated at 13.5. Today on admission, her WBC was 14.7. Her HgbA1c was 6.0. Past Medical History Past Medical History (Chronic Problems): Chronic Problems (Last Updated 08/02/18 @ 22:39 by James Lopez MD) Ulcer of abdomen wall with fat layer exposed (Chronic) Abscess of abdominal wall (Chronic) Abscess of left breast (Chronic) Open wound of right lower quadrant of abdominal wall without penetration into peritoneal cavity (Chronic) Traumatic hematoma of abdominal wall (Chronic) Traumatic hematoma of female breast (Chronic) Old myocardial infarction (Chronic) Abnormal stress test (Chronic) Type 2 diabetes mellitus (Chronic) Aortocoronary bypass status (Chronic) CABG x2- DENNIS to LAd, SVG to Diagonal of the LAD 10/31/11 Atherosclerotic heart disease of [place] coronary artery without angina pectoris (Chronic) CABG x2- DENNIS to LAD, SVG to Diagonal of the LAD 10/31/11 Hypertension (Chronic) Hyperlipidemia (Chronic) Tobacco use disorder (Chronic) Morbid obesity (Chronic) Medical History: Medical History (Last Updated 08/02/18 @ 22:39 by James Lopez MD) Old myocardial infarction (Chronic) I25.2 Abnormal stress test (Chronic) R94.39 Type 2 diabetes mellitus (Chronic) E11.9 Atherosclerotic heart disease of [place] coronary artery without angina pectoris (Chronic) I25.10 CABG x2- DENNIS to LAD, SVG to Diagonal of the LAD 10/31/11 Hypertension (Chronic) I10 Hyperlipidemia (Chronic) E78.5 Tobacco use disorder (Chronic) F17.200 Morbid obesity (Chronic) E66.01 Anxiety state F41.1 Encephalitis G04.90 as a child History of DVT (deep vein thrombosis) Z86.718 COPD (chronic obstructive pulmonary disease) J44.9 Diverticulosis K57.90 History of uterine cancer Z85.42 Allergies cephalexin [From Keflex] Allergy (Severe, Verified 07/30/18 13:50) Rash levofloxacin [From Levaquin] Allergy (Severe, Verified 07/30/18 13:50) Rash niacin Allergy (Severe, Verified 07/30/18 13:50) Rash Penicillins Allergy (Severe, Verified 07/30/18 13:50) Anaphylaxis Sulfa (Sulfonamide Antibiotics) Allergy (Severe, Verified 07/30/18 13:50) Rash citalopram [From Celexa] Adverse Reaction (Severe, Verified 07/30/18 13:50) Rash Estrogens Adverse Reaction (Severe, Verified 07/30/18 13:50) blood clots rosuvastatin [From Crestor] Adverse Reaction (Severe, Verified 07/30/18 13:50) myalgias oral contraceptives Adverse Reaction (Severe, Uncoded 07/30/18 13:50) Unknown Home Medications: Ambulatory Orders Medication Instructions Recorded losartan 100 1 tab PO DAILY 07/02/17 mg-hydrochlorothiazide 25 mg tablet metoprolol tartrate 25 mg tablet 25 mg PO BID 07/02/17 sertraline 100 mg tablet 100 mg PO QDAY 07/02/17 simvastatin 20 mg tablet 20 mg PO QPM 07/02/17 isosorbide mononitrate ER 30 mg 30 mg PO QAM #30 tab 07/08/17 tablet,extended release 24 hr clopidogrel 75 mg tablet 75 mg PO QDAY #90 tab 11/23/17 Bupropion HCl [Bupropion Xl] 300 mg PO DAILY 07/20/18 Nystatin Powder [Mycostatin Powder] 1 applic TOPICAL TID #2 bottle 07/20/18 traMADol [Ultram] 50 mg PO Q6H PRN PRN 07/20/18 Ertapenem Sodium [Ertapenem] 0 gm IV DAILY 7 Days #7 vial 08/04/18 Docusate Sodium [Colace] 100 mg PO BID #60 cap 08/05/18 Hydrochlorothiazide [Hctz] 25 mg PO DAILY tab 08/05/18 Lorazepam [Ativan] 1 mg PO TID PRN PRN #30 tab 08/05/18 Losartan Potassium [Cozaar] 100 mg PO DAILY tab 08/05/18 Oxycodone HCl/Acetaminophen 1 - 2 tab PO 4X/DAY PRN PRN 7 Days 08/05/18 [Percocet 5/325] #60 tab proMETHazine tablet [Phenergan 25 mg PO 4X/DAY PRN PRN #30 tab 08/05/18 tablet] Surgical History: Surgical History (Last Reviewed 08/02/18 @ 19:05 by Gianluca Hernandez DO) Aortocoronary bypass status (Chronic) Z95.1 CABG x2- DENNIS to LAd, SVG to Diagonal of the LAD 10/31/11 History of tonsillectomy Z90.89 History of total hysterectomy Z90.710 History of tubal ligation Z98.51 Surgical History: coronary bypass surgery, hysterectomy, tonsillectomy 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, 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 Lives: Spouse/ Significant Other Smoking Status: Current every day smoker Tobacco Use: Cigarettes Alcohol: None Drugs: None - *Family History Maternal Family History: Family History (Last Reviewed 08/02/18 @ 19:05 by Gianluca Hernandez DO) Father CAD (coronary artery disease) Cancer Mother CVA (cerebral vascular accident) Hypertension Paternal Family History: Family History (Last Reviewed 08/02/18 @ 19:05 by Gianluca Hernandez DO) Father CAD (coronary artery disease) Cancer Mother CVA (cerebral vascular accident) Hypertension Review of Systems Comment: Constitutional: Denies: Chills, Fever, Weight Change. HEENT: Denies: Head Aches, Sinus Congestion, Sinus Drainage. Cardiovascular: Denies: Chest Pain, Palpitations. Respiratory: Denies: Cough, Shortness of breath at rest, Sputum production. Gastrointestinal: Denies: Abdominal Pain, Nausea, Vomiting. Genitourinary: Denies: Dysuria. Musculoskeletal: Denies: Joint Pain, Joint Tenderness. Skin: Reports: - - Left breast and right lower abdomen wounds, present on admission. Neurological: Denies: Numbness, Tingling, Focal weakness. Psychiatric: Reports: Anxiety, Depression. Denies: Homicidal Ideations, Suicidal Ideations. Hematologic/ Lymphatic: Denies: Easy Bruising, Easy Bleeding VTE Information - Inpt Only VTE Present on Admission: No VTE Mechan Device Prophylaxis: SCD's VTE Pharm Prophylaxis ordered?: No - Physical Exam HEENT: PERRLA, EOMI. Neck: Supple, Nontender. No cervical adenopathy. Lungs: Clear to auscultation, Diminished Cardiovascular: Regular rate, Regular Rhythm. Breasts: On the left medial breast is a nonhealing infected hematoma ulcer abscess that measures 4 x 5 x 0.5 cm. Fat necrosis is present. Some tannish drainage is noted. Tender to palpation. No fluctuance. Some surrounding redness. Abdomen: Soft, Non-Distended, Obese. On the right lower abdominal wall is a nonhealing infected hematoma ulcer abscess that measures 7 x 5 x 1 cm. Fat necrosis is present. Some tannish drainage noted. Tender to palpation. No fluctuance. Some surrounding redness. Extremities: No clubbing, No cyanosis, No edema, Capillary Refill Less than 3 Seconds. Musculoskeletal: No Tenderness to Palpation of Joints or Extremities. Neurological: Cranial nerves II-XII grossly intact. Psych/Mental Status: Normal Affect, Appropriate. Vital Signs Temp Pulse Resp BP Pulse Ox 97.9 F 76 18 104/59 L 94 08/02/18 20:25 08/02/18 22:05 08/02/18 20:25 08/02/18 22:05 08/02/18 20:25 Oxygen Delivery Method Room Air Weight: 258 lb 6.4 oz Body Mass Index (BMI) 47.2 Intake and Output for Last 24 Hours 07/31/18 08/01/18 08/02/18 23:59 23:59 23:59 Intake Total 300 / 300 Balance 300 / 300 Laboratory Tests Past 24 Hrs 08/02/18 08/02/18 08/02/18 18:00 18:00 18:00 WBC 14.7 H RBC 6.41 H Hgb 17.2 H Hct 52.0 H MCV 81.1 MCH 26.8 L MCHC 33.1 RDW 15.8 H RDW Differential 46.4 H Plt Count 263 MPV 10.9 ESR 57 H Sodium 133 L Potassium 3.2 L Chloride 100 Carbon Dioxide 27.0 Anion Gap 6 BUN 15 Creatinine 0.96 Estim Creat Clear Calc 48.06 Est GFR (MDRD) Af Amer 76 Est GFR (MDRD) Non-Af 63 BUN/Creatinine Ratio 15.7 Glucose 90 Hemoglobin A1c 6.0 Calcium 9.9 Total Bilirubin 0.40 AST 31 ALT 21 Alkaline Phosphatase 88 C-React Prot Ext Range 18.20 H Total Protein 7.3 Albumin 2.8 L Globulin 4.5 H Albumin/Globulin Ratio 0.6 L Prealbumin 14.4 L Assessment/Plan All Active Problems (Last Updated 08/02/18 @ 22:39 by James Lopez MD) Wound of left breast (Acute) Cellulitis and abscess of trunk (Acute) 1. 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 2. Nonhealing necrotizing infected diabetic hematoma ulcer abscess right lower abdominal wall. 3. Hematoma left medial breast, sequela. 4. Hematoma right lower abdominal wall, sequela. 5. Diabetes mellitus. 6. Smoker. Recommend operative intervention with incision and drainage of the abscess and excisional debridement of necrotizing soft tissue infection. Due to the extensive nature of the necrotizing soft tissue infection, a partial mastectomy may be necessary along with an abdominal panniculectomy. Will leave the wounds open and begin postop wound care with the VAC. Tissue will be sent to Pathology for analysis to rule out carcinoma and to Microbiology for culture. A positive culture may necessitate antibiotic modification. She had been getting Ertapenem IM as an outpatient, and we will continue that. Will consult Infectious Diseases to help with antibiotic management. Depending on what is found at surgery and the severity of the infection, the patient may need care home IV antibiotics with a PICC line. Surgery will be done tomorrow under general anesthesia. Will also consult Hospitalist Group to help with medical management. Anticipate increased metabolic demands from the infection and from the surgery. Will check a Prealbumin and encourage nutritional supplementation with protein to help the healing process. After discharge, will followup at the Wound Center. If there is a plateau in the healing process, then delayed closure can be done with skin grafting or complex secondary wound closure. For the left breast wound, secondary wound closure with an oncoplastic type reconstruction may be necessary. Also anticipate the left breast becoming smaller than the right breast after controlling the infection. Further breast reconstruction surgery may be necessary on the right breast for symmetry. Patient was informed of the risks and complications of the procedure including alternatives to surgery. These were discussed with the patient personally. Patient voices understanding and wishes to proceed. She knows the wounds will be left open for a while until the infection is controlled, and she knows her left breast will be smaller than her right breast after controlling the infection. She voices understanding and wishes to proceed. Encouraged patient to stop smoking as it may have deleterious effects on wound healing.
[2018-08-19 09:31] LABS: Magnesium 1.7 mg/dL (1.6-2.6); Phosphorus 3.2 mg/dL (2.5-4.9)
--- NOTE | 2018-08-19 10:32 | PCM.HP.ID ---
Problem List (1) Abscess of left breast Status: Chronic Reason for Consult: wound infection Consulted by: Dr. Lopez History of Present Illness: The patient is a 62 year old F with recent surgical debridement of L breast and RLQ abd infected, necrotic wounds. Discharged on iv ertapenem, but ever since surgery with severe pain. No fevers. Ongoing drainage from wounds, now described as blue-green in color by wound care. Seen at wound clinic yesterday and sent to ED. Had completed ertapenem last week. Admitted here, started on meropenem, given dose of clinda. MRSA pcr neg. OR planned for today. Full ROS performed and neg except as noted above. 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 exposed (Chronic) Abscess of abdominal wall (Chronic) Abscess of left breast (Chronic) Wound of left breast (Chronic) Open wound of right lower quadrant of abdominal wall without penetration into peritoneal cavity (Chronic) Traumatic hematoma of abdominal wall (Chronic) Traumatic hematoma of female breast (Chronic) Old myocardial infarction (Chronic) Abnormal stress test (Chronic) Type 2 diabetes mellitus (Chronic) Aortocoronary bypass status (Chronic) CABG x2- DENNIS to LAd, SVG to Diagonal of the LAD 10/31/11 Atherosclerotic heart disease of [place] coronary artery without angina pectoris (Chronic) CABG x2- DENNIS to LAD, SVG to Diagonal of the LAD 10/31/11 Hypertension (Chronic) Hyperlipidemia (Chronic) Tobacco use disorder (Chronic) Morbid obesity (Chronic) Allergies/Adverse Reactions: Allergies cephalexin [From Keflex] Allergy (Severe, Verified 07/30/18 13:50) Rash levofloxacin [From Levaquin] Allergy (Severe, Verified 07/30/18 13:50) Rash niacin Allergy (Severe, Verified 07/30/18 13:50) Rash Penicillins Allergy (Severe, Verified 07/30/18 13:50) Anaphylaxis Sulfa (Sulfonamide Antibiotics) Allergy (Severe, Verified 07/30/18 13:50) Rash citalopram [From Celexa] Adverse Reaction (Severe, Verified 07/30/18 13:50) Rash Estrogens Adverse Reaction (Severe, Verified 07/30/18 13:50) blood clots rosuvastatin [From Crestor] Adverse Reaction (Severe, Verified 07/30/18 13:50) myalgias oral contraceptives Adverse Reaction (Severe, Uncoded 07/30/18 13:50) Unknown Home Medications: Ambulatory Orders Medication Instructions Recorded losartan 100 1 tab PO DAILY 07/02/17 mg-hydrochlorothiazide 25 mg tablet sertraline 100 mg tablet 100 mg PO DAILY 07/02/17 isosorbide mononitrate ER 30 mg 30 mg PO QAM #30 tab 07/08/17 tablet,extended release 24 hr Bupropion HCl [Bupropion Xl] 300 mg PO DAILY 07/20/18 Clopidogrel Bisulfate [Clopidogrel] 75 mg PO DAILY 08/18/18 Diazepam [Valium] 5 mg PO 4X/DAY 08/18/18 Docusate Sodium [Colace] 100 mg PO DAILY 08/18/18 Hydromorphone HCl 2 mg PO Q4H PRN PRN 08/18/18 Metoprolol Tartrate [Lopressor 25 mg PO BID 08/18/18 (beta nayeli)] Oxycodone HCl/Acetaminophen 1 - 2 tab PO 4X/DAY 08/18/18 [Oxycodone-Acetaminophen 5-325] Simvastatin 20 mg PO QHS 08/18/18 - Social History Tobacco Use: cigarettes Vital Signs Temp Pulse Resp BP Pulse Ox 97.5 F L 99 18 132/65 H 94 08/19/18 05:13 08/19/18 09:20 08/19/18 05:13 08/19/18 05:13 08/19/18 07:33 Oxygen Delivery Method Room Air Weight: 113.489 kg Body Mass Index (BMI) 45.7 Laboratory Tests Past 24 Hrs 08/18/18 08/18/18 08/18/18 15:25 15:25 15:25 WBC 23.8 H RBC 4.65 Hgb 12.0 Hct 37.3 MCV 80.2 L MCH 25.8 L MCHC 32.2 RDW 15.9 H RDW Differential 46.0 H Plt Count 563 H MPV 10.4 Immature Gran % (Auto) 1.300 H Neut % (Auto) 78.1 H Lymph % (Auto) 9.7 L [place] % (Auto) 9.6 Eos % (Auto) 1.0 Baso % (Auto) 0.3 Absolute Neuts (auto) 18.6 H Absolute Lymphs (auto) 2.32 Total Counted Not Reportable Differential Comment SCANNED Diff Path Review Sodium 137 Potassium 3.0 L Chloride 99 Carbon Dioxide 30.0 Anion Gap 8 BUN 26 H Creatinine 1.84 H Estim Creat Clear Calc 25.07 Est GFR (MDRD) Af Amer 36 L Est GFR (MDRD) Non-Af 30 L BUN/Creatinine Ratio 14.1 Glucose 105 Lactic Acid 2.2 H Calcium 10.4 H Phosphorus Magnesium Troponin I 0.017 Urine Color Urine Clarity Urine pH Ur Specific [place] Urine Protein Urine Glucose (UA) Urine Ketones Urine Occult Blood Urine Nitrite Urine Bilirubin Urine Urobilinogen Ur Leukocyte Esterase Urine RBC Urine WBC Ur Squamous Epith Cells Urine Bacteria Hyaline Casts Urine Mucus S.aureus Protein A PCR MRSA (PCR) 08/18/18 08/18/18 08/18/18 20:20 23:04 23:04 WBC RBC Hgb Hct MCV MCH MCHC RDW RDW Differential Plt Count MPV Immature Gran % (Auto) Neut % (Auto) Lymph % (Auto) [place] % (Auto) Eos % (Auto) Baso % (Auto) Absolute Neuts (auto) Absolute Lymphs (auto) Total Counted Differential Comment Diff Path Review Sodium Potassium Chloride Carbon Dioxide Anion Gap BUN Creatinine Estim Creat Clear Calc Est GFR (MDRD) Af Amer Est GFR (MDRD) Non-Af BUN/Creatinine Ratio Glucose Lactic Acid 3.4 H Calcium Phosphorus Magnesium Troponin I Urine Color Urine Clarity Urine pH Ur Specific [place] Urine Protein Urine Glucose (UA) Urine Ketones Urine Occult Blood Urine Nitrite Urine Bilirubin Urine Urobilinogen Ur Leukocyte Esterase Urine RBC Urine WBC Ur Squamous Epith Cells Urine Bacteria Hyaline Casts Urine Mucus S.aureus Protein A PCR NEGATIVE NEGATIVE MRSA (PCR) Negative Negative 08/19/18 08/19/18 08/19/18 00:26 06:50 06:50 WBC 15.3 H RBC 4.10 L Hgb 10.4 L Hct 33.0 L MCV 80.5 L MCH 25.4 L MCHC 31.5 L RDW 15.9 H RDW Differential 46.3 H Plt Count 383 MPV 10.0 Immature Gran % (Auto) 1.000 H Neut % (Auto) 75.6 H Lymph % (Auto) 11.3 L [place] % (Auto) 10.4 H Eos % (Auto) 1.4 Baso % (Auto) 0.3 Absolute Neuts (auto) 11.6 H Absolute Lymphs (auto) 1.73 Total Counted Not Reportable Differential Comment COMMENT Diff Path Review May foll Sodium 141 Potassium 2.9 L Chloride 107 Carbon Dioxide 26.0 Anion Gap 8 BUN 24 H Creatinine 1.31 H Estim Creat Clear Calc 35.22 Est GFR (MDRD) Af Amer 53 L Est GFR (MDRD) Non-Af 44 L BUN/Creatinine Ratio 18.3 Glucose 94 Lactic Acid Calcium 9.3 Phosphorus Magnesium Troponin I Urine Color Yellow Urine Clarity Clear Urine pH 6.0 Ur Specific [place] 1.015 Urine Protein Negative Urine Glucose (UA) Normal Urine Ketones Negative Urine Occult Blood Negative Urine Nitrite Negative Urine Bilirubin Negative Urine Urobilinogen Normal Ur Leukocyte Esterase Negative Urine RBC 0 SEEN Urine WBC 0 SEEN Ur Squamous Epith Cells 0-5 SEEN Urine Bacteria RARE Hyaline Casts 0-5 SEEN Urine Mucus RARE S.aureus Protein A PCR MRSA (PCR) 08/19/18 06:50 WBC RBC Hgb Hct MCV MCH MCHC RDW RDW Differential Plt Count MPV Immature Gran % (Auto) Neut % (Auto) Lymph % (Auto) [place] % (Auto) Eos % (Auto) Baso % (Auto) Absolute Neuts (auto) Absolute Lymphs (auto) Total Counted Differential Comment Diff Path Review Sodium Potassium Chloride Carbon Dioxide Anion Gap BUN Creatinine Estim Creat Clear Calc Est GFR (MDRD) Af Amer Est GFR (MDRD) Non-Af BUN/Creatinine Ratio Glucose Lactic Acid Calcium Phosphorus 3.2 Magnesium 1.7 Troponin I Urine Color Urine Clarity Urine pH Ur Specific [place] Urine Protein Urine Glucose (UA) Urine Ketones Urine Occult Blood Urine Nitrite Urine Bilirubin Urine Urobilinogen Ur Leukocyte Esterase Urine RBC Urine WBC Ur Squamous Epith Cells Urine Bacteria Hyaline Casts Urine Mucus S.aureus Protein A PCR MRSA (PCR) - Other Studies Radiology: [] reviewed Other Studies: [] Route of nutrition/ use of supplements: [] Nutritional Intake: [] IV Site: [] Griffith Catheter: [] - Physical Exam General: Alert, Oriented x3, Cooperative, - - in pain HEENT: Atraumatic, PERRLA, EOMI Neck: Supple, No Nodes Lungs: Clear to auscultation, Normal air movement Cardiovascular: Regular rate, Regular Rhythm Abdomen: Soft, Non Tender, Non-Distended Extremities: No edema Skin: Ulcer/ Wound - will review photos. L breast and RLQ abd wounds. IV Site: Peripheral, without redness Musculoskeletal: No Tenderness to Palpation of Joints or Extremities Neurological: Cranial nerves II-XII grossly intact - Assessment/Plan Antibiotics: [] Assessment/Plan: [] L breast infection s/p surgical debridement - wound cx sent today. Wbc improving. No fever or elevated hr/rr here. NATHALIE improved. Will increase dose of meropenem. OR today for L mastectomy. Will follow, thank you. D/w primary team and Dr. Lopez
--- NOTE | 2018-08-19 11:24 | NURSING ---
wound photo: left breast
--- NOTE | 2018-08-19 11:25 | NURSING ---
wound photo: right lower abdomen
--- NOTE | 2018-08-19 12:33 | CASEMGMT ---
This RN CM to room to complete CM assessment and RN is at bedside completing pt care at this time. Will attempt again later. SStaten RN CM
--- NOTE | 2018-08-19 12:37 | PN_ITS ---
Subjective: Pt very tearful on exam and expressing frustrations with [facility], financial issues, repeated health issues. Left breast and abdominal pain is controlled. No fever/chills. No SOB. No CP, dizziness, LH. She is reluctantly considering total left mastectomy. She would prefer not to have surgery but is open to the idea. She failed outpatient IV ertapenem. - Physical Exam General: Alert, Oriented x3, Cooperative HEENT: Atraumatic, PERRLA, EOMI, Normocephalic Neck: Supple, No JVD, Negative Carotid Bruits Lungs: Clear to auscultation, Normal air movement Cardiovascular: Regular rate, No murmurs Abdomen: Bowel Sounds Present, Soft, Non Tender, Obese Extremities: No edema, Capillary Refill Less than 3 Seconds, Edema Skin: No rashes, No breakdown, - - ankles with dry skin and thickening. Musculoskeletal: No Tenderness to Palpation of Joints or Extremities Neurological: Cranial nerves II-XII grossly intact Psych/Mental Status: Depressed, Alert and oriented to time, place, person, mood and affect Vital Signs Temp Pulse Resp BP Pulse Ox 98.3 F 94 18 135/71 H 95 08/19/18 11:10 08/19/18 11:10 08/19/18 11:10 08/19/18 11:10 08/19/18 11:10 Oxygen Delivery Method Room Air Weight: 250 lb 3.206 oz Body Mass Index (BMI) 45.7 Intake and Output for Last 24 Hours 08/17/18 08/18/18 08/19/18 23:59 23:59 23:59 Intake Total 2767.7 / 2767.7 Balance 2767.7 / 2767.7 Laboratory Tests Past 24 Hrs 08/18/18 08/18/18 08/18/18 15:25 15:25 15:25 WBC 23.8 H RBC 4.65 Hgb 12.0 Hct 37.3 MCV 80.2 L MCH 25.8 L MCHC 32.2 RDW 15.9 H RDW Differential 46.0 H Plt Count 563 H MPV 10.4 Immature Gran % (Auto) 1.300 H Neut % (Auto) 78.1 H Lymph % (Auto) 9.7 L [place] % (Auto) 9.6 Eos % (Auto) 1.0 Baso % (Auto) 0.3 Absolute Neuts (auto) 18.6 H Absolute Lymphs (auto) 2.32 Total Counted Not Reportable Differential Comment SCANNED Diff Path Review Sodium 137 Potassium 3.0 L Chloride 99 Carbon Dioxide 30.0 Anion Gap 8 BUN 26 H Creatinine 1.84 H Estim Creat Clear Calc 25.07 Est GFR (MDRD) Af Amer 36 L Est GFR (MDRD) Non-Af 30 L BUN/Creatinine Ratio 14.1 Glucose 105 Lactic Acid 2.2 H Calcium 10.4 H Phosphorus Magnesium Troponin I 0.017 Urine Color Urine Clarity Urine pH Ur Specific [place] Urine Protein Urine Glucose (UA) Urine Ketones Urine Occult Blood Urine Nitrite Urine Bilirubin Urine Urobilinogen Ur Leukocyte Esterase Urine RBC Urine WBC Ur Squamous Epith Cells Urine Bacteria Hyaline Casts Urine Mucus S.aureus Protein A PCR MRSA (PCR) 08/18/18 08/18/18 08/18/18 20:20 23:04 23:04 WBC RBC Hgb Hct MCV MCH MCHC RDW RDW Differential Plt Count MPV Immature Gran % (Auto) Neut % (Auto) Lymph % (Auto) [place] % (Auto) Eos % (Auto) Baso % (Auto) Absolute Neuts (auto) Absolute Lymphs (auto) Total Counted Differential Comment Diff Path Review Sodium Potassium Chloride Carbon Dioxide Anion Gap BUN Creatinine Estim Creat Clear Calc Est GFR (MDRD) Af Amer Est GFR (MDRD) Non-Af BUN/Creatinine Ratio Glucose Lactic Acid 3.4 H Calcium Phosphorus Magnesium Troponin I Urine Color Urine Clarity Urine pH Ur Specific [place] Urine Protein Urine Glucose (UA) Urine Ketones Urine Occult Blood Urine Nitrite Urine Bilirubin Urine Urobilinogen Ur Leukocyte Esterase Urine RBC Urine WBC Ur Squamous Epith Cells Urine Bacteria Hyaline Casts Urine Mucus S.aureus Protein A PCR NEGATIVE NEGATIVE MRSA (PCR) Negative Negative 08/19/18 08/19/18 08/19/18 00:26 06:50 06:50 WBC 15.3 H RBC 4.10 L Hgb 10.4 L Hct 33.0 L MCV 80.5 L MCH 25.4 L MCHC 31.5 L RDW 15.9 H RDW Differential 46.3 H Plt Count 383 MPV 10.0 Immature Gran % (Auto) 1.000 H Neut % (Auto) 75.6 H Lymph % (Auto) 11.3 L [place] % (Auto) 10.4 H Eos % (Auto) 1.4 Baso % (Auto) 0.3 Absolute Neuts (auto) 11.6 H Absolute Lymphs (auto) 1.73 Total Counted Not Reportable Differential Comment COMMENT Diff Path Review May foll Sodium 141 Potassium 2.9 L Chloride 107 Carbon Dioxide 26.0 Anion Gap 8 BUN 24 H Creatinine 1.31 H Estim Creat Clear Calc 35.22 Est GFR (MDRD) Af Amer 53 L Est GFR (MDRD) Non-Af 44 L BUN/Creatinine Ratio 18.3 Glucose 94 Lactic Acid Calcium 9.3 Phosphorus Magnesium Troponin I Urine Color Yellow Urine Clarity Clear Urine pH 6.0 Ur Specific [place] 1.015 Urine Protein Negative Urine Glucose (UA) Normal Urine Ketones Negative Urine Occult Blood Negative Urine Nitrite Negative Urine Bilirubin Negative Urine Urobilinogen Normal Ur Leukocyte Esterase Negative Urine RBC 0 SEEN Urine WBC 0 SEEN Ur Squamous Epith Cells 0-5 SEEN Urine Bacteria RARE Hyaline Casts 0-5 SEEN Urine Mucus RARE S.aureus Protein A PCR MRSA (PCR) 08/19/18 06:50 WBC RBC Hgb Hct MCV MCH MCHC RDW RDW Differential Plt Count MPV Immature Gran % (Auto) Neut % (Auto) Lymph % (Auto) [place] % (Auto) Eos % (Auto) Baso % (Auto) Absolute Neuts (auto) Absolute Lymphs (auto) Total Counted Differential Comment Diff Path Review Sodium Potassium Chloride Carbon Dioxide Anion Gap BUN Creatinine Estim Creat Clear Calc Est GFR (MDRD) Af Amer Est GFR (MDRD) Non-Af BUN/Creatinine Ratio Glucose Lactic Acid Calcium Phosphorus 3.2 Magnesium 1.7 Troponin I Urine Color Urine Clarity Urine pH Ur Specific [place] Urine Protein Urine Glucose (UA) Urine Ketones Urine Occult Blood Urine Nitrite Urine Bilirubin Urine Urobilinogen Ur Leukocyte Esterase Urine RBC Urine WBC Ur Squamous Epith Cells Urine Bacteria Hyaline Casts Urine Mucus S.aureus Protein A PCR MRSA (PCR) Medical Necessity - Tobacco Use Smoking Status: Current every day smoker Tobacco Use: Cigarettes Assessment/Plan 1. Acute sepsis 2/2 Recurrent left breast abscess. Continue Vanc/Anika, also received clinda in the ER. Dr. Lopez feels abdomen healing well, left breast needs total mastectomy. ID reconsulted. Cultures have shown P rettgeri, M marganii, MSSA, B fragilis. BP improved. Afebrile. MRSA screen neg. UA/CXR neg. WBC 23.8-->15.3. 2. Low K, mag - repleted, recheck. Phos wnl 3. NATHALIE - 2/2 sepsis - improving. continue fluids. 4. Microcytic anemia - 12.0-10.4. Likely dilutional. Trend. Check iron/tibc - microcytic. 5. CAD prior CABGx2, PA - plavix, statin, asa, metoprolol, imdur 6. T2DM with morbid obesity 7. HTN - held HCTZ/arb for NATHALIE and hypotension 8. HLD - statin 9. Depression - zoloft/wellbutrin. depressed/tearful affect. DVT ppx: heparin DC planning: SNF, failed at home. This patient was seen by Addi Alejandra PA-C under the supervision of Dr. Daley
--- NOTE | 2018-08-19 12:54 | CASEMGMT ---
STEFFANY NINA assessment: Face to Face with patient for initial transition planning/care coordination assessment. STEFFANY NINA introduced self and role at [facility], pt voices understanding and consents to assessment at this time. Pt is sitting up in bed in no distress at this time. Pt is A/Ox4 at this time and answers all questions appropriately at this time. Pt's is at bedside during assessment. Care providers, pharmacy, and demographics verified at this time. PCP: [facility] Specialists: Pt states currently has no specialists. [facility]erred [facility]acy: [facility] Insurance: MMO Prescription Benefit: MMO Living Will/HPOA: Pt states does not currently have LW/HPOA and declines info at this time. LNOK: [facility], Living Arrangements: Pt states lives with in 1 story home with 1 step in and states no concerns at home at this time. Pt states that her and [facility] has been assisting her with ADL's. Transportation: Pt states drives currently and states no transportation concerns at this time. DME/HHC: Pt states has the wound vac at home and no other DME. Pt states no need for any further DME at this time. Pt states is current with [facility] for fci at this time. Pt states no hx of SNF in the past. Dr. Lopez states that pt will need SNF placement at discharge. This RN KELLE did discuss this with pt at this time, all questions were answered, and will follow for further questions and for course of treatment. Pt is retired. Pt states does smoke a pack/day but does not drink ETOH. Pt states no further questions/concerns/needs at this time. CM to follow for iv antibx, wound care, and any further discharge planning/needs. Advised pt to ask for CM if any further questions/concerns/needs arise, voices understanding. Pt Goal: Home w/ resump of [facility] Plan: TBD SStaten STEFFANY NINA
[2018-08-19 13:31] LABS: Iron 20 ug/dL (50-170); Iron Binding Capacity,Total 157 ug/dL (250-450); PERCENT IRON SATURATION 12.7 % (15.0-55.0)
--- NOTE | 2018-08-19 15:00 | BREAST_PTH ---
PATIENT: OLENA HEALY V LOC: PCU U#:[id number] AGE/SX: 62/F ROOM: [facility] RE08/18/[address]: Dr. Betty Oliveira DO : 1955 BED: 1 DIS: 08/24/2018 SPEC #: [id number] RECD: 08/19/18 16:58 STATUS: JAIMIE REIlana #: [id number] FLIP: 08/19/18 15:[address]: James Lopez DEPT: SURGICAL PATHOLOGY RECD BY: Ehsan Green ENTERED: 08/20/18 11:38 SP TYPE: BREAST OTHR DR: MD Dr. Chan Stallings MD Dr. Raymond Mason, MD Raymond Mason Tissues: A - Left breast, NOS B - Abdomen, NOS Procedures: Surgery Specimen Level IV Surgery Specimen Level V HEADER OPERATION: Completion mastectomy PRE-OP DIAGNOSIS: Nonhealing necrotizing infected diabetic hematoma ulcer abscess left medial breast. Nonhealing necrotizing infected diabetic hematoma ulcer abscess right lower abdominal wall TISSUE SUBMITTED: A. Soft tissue left breast, B. Soft tissue abdomen MICROSCOPIC DIAGNOSIS A. Skin and soft tissue, left breast, mastectomy: Nipple - no pathologic change. Skin lesion - seborrheic keratosis. Skin and underlying soft tissue with ulceration, acute and chronic inflammation, abscess formation and fat necrosis. No evidence of malignancy. B. Skin and soft tissue of abdomen, excision: Skin and soft tissue with ulceration, acute and chronic inflammation, abscess formation and fat necrosis. AM:israel 08/23/18 MICROSCOPIC DESCRIPTION Slides are reviewed. GROSS DESCRIPTION A - Received in fixative is one container labeled with the patient's name and designated soft tissue left breast. The specimen consists of a mastectomy specimen consisting of breast tissue with overlying skin ellipse measuring 23 x 21 x 10 cm. The nipple is present measuring 1 cm in greatest dimension. A large defect is noted on the surface of the skin including deeper tissue measuring 10 x 7 x 5 cm. A raised, brown skin lesion is also noted measuring 1.5 x 1.5 x 0.5 cm. The ulcer appears brownish-black. Sections of the ulcerated area reveal pink, congested cut surfaces surrounding the ulcer base. Sections of the rest of the specimen reveal zazueta-yellow adipose cut surfaces mixed with scant, fibrous area. Bag Valver sections are submitted in six cassettes as follows: 1 - nipple, entirely submitted, 2 - skin lesion, entirely submitted, 3 & 4 - ulcerated area, 5 & 6 - artist's representative sections from the other areas. B - Received in fixative is one container labeled with the patient's name and designated soft tissue abdomen. The specimen consists of four variable sized pieces of skin with underlying tissue that in aggregate measure 25 x 20 x 8 cm. An area of ulceration is noted. The ulcer is brownish-sumner. No skin lesion is identified. Bag Valver sections are submitted in six cassettes. / EULALIO:israel 08/20/18 TC:2 CPT: 39068, 07888
[2018-08-19 15:17] LABS: Potassium 3.1 mmol/L (3.5-5.1)
--- NOTE | 2018-08-19 17:05 | OP.PCM_ITS ---
Report of Operation Date of Procedure: 08/19/18 Pre-Operative Diagnosis: 1. 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 2. Nonhealing necrotizing infected diabetic ulcer abscess right lower abdominal wall. 3. Hematoma left medial breast, sequela. 4. Hematoma right lower abdominal wall, sequela. 5. Diabetes mellitus. 6. Smoker. Post-Operative Diagnosis: Same. Surgery/Procedure Performed:: 1. Surgical preparation left breast with incision and drainage and excisional debridement nonhealing necrotizing infected diabetic ulcer abscess and completion mastectomy (270 cm2). 2. Surgical preparation right lower abdominal wall with incision and drainage and excisional debridement nonhealing necrotizing infected diabetic ulcer abscess (616 cm2). Description of Surgical Findings:: I recently operated on this patient on 08/03/18 where she underwent surgical preparation left medial breast with incision and drainage and excisional debridement nonhealing necrotizing infected diabetic hematoma ulcer abscess and partial mastectomy (70 cm2) and surgical preparation right lower abdominal wall with incision and drainage and excisional debridement nonhealing necrotizing infected diabetic hematoma ulcer abscess and abdominal panniculectomy (300 cm2). She was discharged home on the VAC. She had a lot of pain with her VAC changes at home. Her previous operative cultures showed Providencia rettgeri, Morganella morganii, Staphylococcus aureus, Bacteroides fragilis, and Anaerobic cocci. She was discharged home on Ertapenem which she finished. She was admitted yesterday with sepsis. Her WBC was 23.8. Her lactate was 2.2. Her Creatinine was 1.84. She was started on Vancomycin and Meropenem. Her WBC improved this morning to 15.3. Her Creatinine improved to 1.31. Her lactate worsened to 3.4. On exam, the left breast wound and right lower abdominal wall wounds are tender to palpation. There is an odor coming from the left breast. There are several areas of fat necrosis in the breast wound. There is surrounding redness and induration extending to the lateral aspect of the breast and involves the nipple. The right lower abdominal wall wound appears stable. Not as tender as the breast wound. Small amounts of fat necrosis present at the edges. Surrounding skin is soft. Minimal redness seen in the periwound area. No induration noted. Combined with her clinical picture, she needs additional excisional debridement of the left breast wound that will be extensive and involve the nipple. She may need a completion mastectomy to control the infection. Will continue to leave the wound open postop and proceed with the VAC. Until the surgery, will start Dakin's dressing changes twice a day. The right lower abdominal wall wound is stable at present but at the time of surgery, if there is evidence of deeper infection within the wound, I will also proceed with debridement of the abdominal wall wound as well. With the degree of difficulty with her wound care at home with the VAC and as sociated pain combined with worsening of the infection, she won't be able to go home after surgery. I [facility] help with the wound care. It appears the wound care is too overwhelming at home at the present time. Patient was informed of the risks and complications of the procedure including alternatives to surgery. These were discussed with the patient personally. Pat ient voices understanding and wishes to proceed. Patient understands that the wounds will be left open and that a completion mastectomy is possible. After the infection has been treated and the wounds have healed, can discuss her breast reconstruction options at that time. Will schedule the surgery in the next 1-2 days under general anesthesia. Encouraged patient to stop smoking as it may have deleterious effects on wound healing. IV Fluids - 1600 ml. Urine Output - 200 ml. Size of defect left breast - 10 x 27 x 9 cm. Size of defect right lower abdominal wall - 14 x 44 x 8 cm. communications technician: None Type of Anesthesia:: General Specimen's removed: 1. Left breast tissue to Pathology and Microbiology. 2. Right lower abdominal wall to Pathology and Microbiology. Drains: None. Estimated Blood Loss (mL): 650 ml. Fluids Replaced: 1800 ml (IV Fluids 1600 ml, Urine Output 200 ml). Description of Procedure: Patient was taken to OR in supine position and was placed under general anesthesia. A thurston catheter was placed. The left breast and abdominal wall areas were prepped and draped in the usual fashion. SCD's were placed for DVT prophylaxis. Perioperative antibiotics were given intravenously. I then pr oceeded with incision and drainage of both these necrotizing abscess ulcers down into the subcutaneous tissue to the chest wall muscular fascia and abdominal wall fascia. Some pus was seen. Extensive fat necrosis was seen and extensive induration was seen. The necrotic ulcerations were excised and debrided in addition to the extensive fat necrosis. The wounds extended to the chest wall and pectoralis muscle which appeared viable and to the abdominal wall fascia which appeared mildly swollen and viable. The induration in the left breast was so extensive, it involved the entire breast including the nipple areolar complex so a completion mastectomy was done which extended laterally to the axillary line and superiorly to the clavicle and medially to the sternum and inferiorly to the inframammary fold. Tissue was sent from each area separately to Pathology for analysis to rule out carcinoma and to Microbiology for culture. A positive culture may necessitate antibiotic modification. The wound was irrigated with saline. Hemostasis was obtained with electrocautery. The size of the left breast wound after the completion mastectomy was 10 x 27 x 9 cm. The excision and debridement on the right lower abdominal wall was quite extensive as it extended to the abdominal wall fascia and medially to the infraumbilical area. The necrotizing soft tissue infection and induration extended to the medial and lateral edges of the abscess ulcer. The wound was irrigated with saline. Hemostasis was obtained with electrocautery. The size of the right lower abdominal wall wound after incision and drainage and excision and debridement of necrotizing soft tissue diabetic abscess ulcers was 14 x 44 x 8 cm. Both wounds were dressed with Mepitel nonadherent dressings followed by Kerlix g auze and Betadine followed by dry Kerlix gauze and ABD pads compression dressing. Patient tolerated the procedure well and was sent to PACU in stable condition. There was a lot of blood loss during the surgery, about 650 ml. Will check a Hgb postop and will type and cross PRBC in anticipation of transfusing them during the postop period. Patient will be sent upstairs for continued postop care. The VAC will be applied tomorrow. After discharge she will followup at the [facility]. After healing has occurred, can discuss further breast reconstruction surgery. Further revision surgery may also be necessary on the abdominal wall depending on the extent of the residual scar contour deformity that develops after healing has occurred. Grafts/Implants Used: None. - Complications None. - Admit VTE Documentation VTE Present on Admission: No VTE Mechan Device Prophylaxis: SCD's VTE Pharm Prophylaxis ordered?: Yes Code Visit Surgery Charges CPT - 30447-69 ICD-10 - L02.211, L98.492, M79.89, S30.1xxS, E65, E 11.9, F17.200 77160-77 N61.1, M79.89, S20.00xS, E11.9, F17.200
[2018-08-19 17:07] LABS: Hematocrit 28.9 % (37-47); Hemoglobin 8.9 g/dl (12.0-15.0)
[2018-08-19 17:55] LABS: Bedside Glucose 113 mg/dL (70-110)
[2018-08-19] MEDS: Docusate Sodium 100 MG Capsule PO (21:12)
[2018-08-19] MEDS: Heparin Injection (Vial) 5,000 UNIT/ML VIAL 5000 UNIT SC (21:12)
[2018-08-19] MEDS: Atorvastatin Calcium 10 MG Tablet PO (21:12)
[2018-08-19] MEDS: HYDROmorphone 1 MG/ML Syringe IV (21:13)
[2018-08-20] VITALS (19 sets, daily range): BP systolic 89–110; BP diastolic 34–77; PULSE 68–88; RESP 16–18; TEMP 36.3–37.2; O2SAT 90–97
[2018-08-20] MEDS: HYDROmorphone 1 MG/ML Syringe IV ×2 (03:04→09:50)
[2018-08-20] MEDS: 0.9% NaCl Peripheral Flush Adult/Peds IV (03:04)
[2018-08-20 06:13] LABS: Absolute Lymphocyte Count 1.63 X10^3/ul (0.83-4.51); Absolute Neutrophil Count 17.6 X10^3/uL (2.0-7.7); Basophil# 0.04 X10^3/uL; Basophil% 0.2 % (0-1); Differential Indicated SCAN CRITERIA MET; Eosinophil# 0.05 X10^3/uL; Eosinophils% 0.2 % (0-5); Hematocrit 25.6 % (37-47); Lymphocyte # 1.63 X10^3/ul (4.0); Lymphocyte % 7.6 % (19-41); Mean Corp Hgb Conc 31.3 g/gl (32-36); Mean Corpuscular Hgb 25.4 pg (27.0-32.0); Mean Corpuscular Volume 81.3 fL (81-99); Mean Platelet Vol. 9.9 fl (6.2-12.0); Monocyte# 1.81 X10^3/uL; Monocyte% 8.5 % (0-10); Neutrophil # 17.59 X10^3/uL (2.7-7.7); Neutrophil % 82.5 % (47-70); POSITIVE COUNT NO; POSITIVE DIFFERENTIAL YES; POSITIVE MORPHOLOGY NO; Platelet Count 377 K/mm3 (150-450); RBC Distribution Width CV 16.1 % (11.6-14.6); RBC Distribution Width SD 47.4 fl (35.1-43.9); Red Blood Count 3.15 M/mm3 (4.2-5.4); White Blood Count 21.3 K/mm3 (4.4-11.0)
[2018-08-20 06:14] LABS: Anion Gap 8 (5-15); BUN 18 mg/dL (7-18); BUN/Creat Ratio 18.3 RATIO (10-20); Calcium,Total 8.6 mg/dL (8.5-10.1); Chloride 110 mmol/L (98-107); Creatinine, Serum 0.98 mg/dL (0.55-1.02); EST Glomerular Filtration Rate 61 mL/min (>60); Est Glom Filt Rate - Afr Amer 74 mL/min (>60); Estimated Creatinine Clearance 47.08 ml/min; Glucose 98 mg/dL (74-106); Potassium 3.6 mmol/L (3.5-5.1); Prealbumin 6.9 mg/dL (20.0-40.0); Sodium Level 141 mmol/L (136-145)
[2018-08-20 06:50] LABS: Differential Comment SCANNED
[2018-08-20] MEDS: oxyCODONE 5 MG Tablet PO (09:01)
[2018-08-20] MEDS: Metoprolol Tartrate 25 MG Tablet PO (09:03)
[2018-08-20] MEDS: Clopidogrel Bisulfate 75 MG Tablet PO (09:03)
[2018-08-20] MEDS: buPROPion (XL) 300 MG TABLET.XL PO (09:03)
[2018-08-20] MEDS: Docusate Sodium 100 MG Capsule PO ×2 (09:03→21:51)
[2018-08-20] MEDS: diazePAM 5 MG Tablet PO ×4 (09:04→21:50)
[2018-08-20] MEDS: Sertraline 100 MG Tablet PO (09:04)
--- NOTE | 2018-08-20 12:20 | NURSING ---
wound photo: left breast
--- NOTE | 2018-08-20 12:21 | NURSING ---
wound photo: right lower abdomen
[2018-08-20] MEDS: HYDROmorphone 2 MG TABLET PO ×3 (12:29→22:18)
[2018-08-20 13:22] LABS: Pathologist Review Reviewed
--- NOTE | 2018-08-20 13:42 | PCM.PN.ID ---
Subjective: Feeling a little better, pain controlled, no fever - Physical Exam General: Alert, Cooperative, No apparent distress Lungs: Clear to auscultation, Normal air movement Cardiovascular: Regular rate, Regular Rhythm Abdomen: Soft, Non Tender, Non-Distended Skin: Incision - bandaged Vital Signs Temp Pulse Resp BP Pulse Ox 98.4 F 78 16 89/34 L 93 08/20/18 12:40 08/20/18 12:40 08/20/18 12:40 08/20/18 12:40 08/20/18 12:40 Oxygen Flow Rate (L/min) 2 Oxygen Delivery Method Nasal Cannula Weight: 113.489 kg Body Mass Index (BMI) 45.7 Finger Stick Blood Glucose 133 Intake and Output for Last 24 Hours 08/18/18 08/19/18 08/20/18 23:59 23:59 23:59 Intake Total 8443.7 / 8443.7 1475 / 1475 Output Total 500 / 500 450 / 450 Balance 7943.7 / 7943.7 1025 / 1025 Microbiology Past 72 Hours 08/19/18 16:13 Wound Culture - Preliminary Tissue - Breast No growth-Final to follow 08/19/18 09:20 Wound Culture - Preliminary Wound - Breast GNR Poss Pseudomonas sp 08/19/18 09:20 Wound Culture - Preliminary Wound Drainage - Aerobic & Anaerobic Swabs GNR Poss Pseudomonas sp Laboratory Tests Past 24 Hrs 08/18/18 08/19/18 08/19/18 15:25 06:50 15:05 WBC RBC Hgb Hct MCV MCH MCHC RDW RDW Differential Plt Count MPV Immature Gran % (Auto) Neut % (Auto) Lymph % (Auto) [place] % (Auto) Eos % (Auto) Baso % (Auto) Absolute Neuts (auto) Absolute Lymphs (auto) Total Counted Differential Comment Diff Path Review Reviewed Sodium Potassium 3.1 L Chloride Carbon Dioxide Anion Gap BUN Creatinine Estim Creat Clear Calc Est GFR (MDRD) Af Amer Est GFR (MDRD) Non-Af BUN/Creatinine Ratio Glucose Calcium Prealbumin Blood Type O POSITIVE Antibody Screen NEGATIVE Crossmatch See Detail 08/19/18 08/20/18 08/20/18 16:40 05:05 05:05 WBC 21.3 H RBC 3.15 L Hgb 8.9 L 8.0 L Hct 28.9 L 25.6 L MCV 81.3 MCH 25.4 L MCHC 31.3 L RDW 16.1 H RDW Differential 47.4 H Plt Count 377 MPV 9.9 Immature Gran % (Auto) 1.000 H Neut % (Auto) 82.5 H Lymph % (Auto) 7.6 L [place] % (Auto) 8.5 Eos % (Auto) 0.2 Baso % (Auto) 0.2 Absolute Neuts (auto) 17.6 H Absolute Lymphs (auto) 1.63 Total Counted Not Reportable Differential Comment SCANNED Diff Path Review Sodium 141 Potassium 3.6 Chloride 110 H Carbon Dioxide 23.0 Anion Gap 8 BUN 18 Creatinine 0.98 Estim Creat Clear Calc 47.08 Est GFR (MDRD) Af Amer 74 Est GFR (MDRD) Non-Af 61 BUN/Creatinine Ratio 18.3 Glucose 98 Calcium 8.6 Prealbumin 6.9 L Blood Type Antibody Screen Crossmatch POC Glucose 08/19/18 17:51 POC Glucose 113 H Medical Necessity - Tobacco Use Smoking Status: Current every day smoker Tobacco Use: Cigarettes Route of nutrition/ use of supplements: [] Nutritional Intake: [] IV Site: [] Griffith Catheter: [] - Assessment/Plan Antibiotics: [] Assessment/Plan: [] L breast infection s/p surgical debridement - wound cx 08/19 showing PsA-like. Taken to OR 08/19 for I&D by Dr. Lopez of both sites. Cont meropenem. Staph pcr of wounds is neg. Will follow
--- NOTE | 2018-08-20 13:56 | PN.SURG_ITS ---
Subjective: Postop #1 VAC applied today. It was painful and needed IV analgesia. - Physical Exam General: Alert, Oriented x3 HEENT: PERRLA, EOMI Oral: Moist Mucosa Neck: Supple Abdomen: Soft, Non-Distended Skin: Ulcer/ Wound - large wounds left breast and right lower abdominal wall. No active bleeding seen. No further evidence of necrosis. VAC applied today with some pain. She needed IV analgesia. Neurological: Cranial nerves II-XII grossly intact Psych/Mental Status: Normal Affect, Appropriate Vital Signs Temp Pulse Resp BP Pulse Ox 98.4 F 78 16 89/34 L 93 08/20/18 12:40 08/20/18 12:40 08/20/18 12:40 08/20/18 12:40 08/20/18 12:40 Oxygen Flow Rate (L/min) 2 Oxygen Delivery Method Room Air Weight: 250 lb 3.206 oz Body Mass Index (BMI) 45.7 Finger Stick Blood Glucose 133 Intake and Output for Last 24 Hours 08/19/18 08/20/18 23:59 23:59 Intake Total 8443.7 / 8443.7 1475 / 1475 Output Total 500 / 500 450 / 450 Balance 7943.7 / 7943.7 1025 / 1025 Microbiology Past 72 Hours 08/19/18 09:20 Wound Culture - Preliminary Wound - Breast GNR Poss Pseudomonas sp 08/19/18 09:20 Wound Culture - Preliminary Wound Drainage - Aerobic & Anaerobic Swabs GNR Poss Pseudomonas sp 08/18/18 16:05 Blood Culture - Preliminary Blood Culture (Wb) - Anticubital Left No growth in 24 hours. 08/18/18 15:25 Blood Culture - Preliminary Blood Culture (Wb) - Anticubital Right No growth in 24 hours. 08/19/18 16:16 Gram Stain - Final Tissue - Breast 08/19/18 16:13 Gram Stain - Final Tissue - Breast Wound Culture - Preliminary No growth-Final to follow Laboratory Tests Past 24 Hrs 08/18/18 08/19/18 08/19/18 15:25 06:50 16:40 WBC RBC Hgb 8.9 L Hct 28.9 L MCV MCH MCHC RDW RDW Differential Plt Count MPV Immature Gran % (Auto) Neut % (Auto) Lymph % (Auto) [place] % (Auto) Eos % (Auto) Baso % (Auto) Absolute Neuts (auto) Absolute Lymphs (auto) Total Counted Diff Path Review Reviewed Hypochromasia Sodium Potassium Chloride Carbon Dioxide Anion Gap BUN Creatinine Estim Creat Clear Calc Est GFR (MDRD) Af Amer Est GFR (MDRD) Non-Af BUN/Creatinine Ratio Glucose Calcium Vancomycin Trough Blood Type O POSITIVE Antibody Screen NEGATIVE Crossmatch See Detail 08/20/18 08/20/18 05:05 05:05 WBC 21.3 H RBC 3.15 L Hgb 8.0 L Hct 25.6 L MCV 81.3 MCH 25.4 L MCHC 31.3 L RDW 16.1 H RDW Differential 47.4 H Plt Count 377 MPV 9.9 Immature Gran % (Auto) 1.000 H Neut % (Auto) 82.5 H Lymph % (Auto) 7.6 L [place] % (Auto) 8.5 Eos % (Auto) 0.2 Baso % (Auto) 0.2 Absolute Neuts (auto) 17.6 H Absolute Lymphs (auto) 1.63 Total Counted Not Reportable Diff Path Review Hypochromasia Sodium 141 Potassium 3.6 Chloride 110 H Carbon Dioxide 23.0 Anion Gap 8 BUN 18 Creatinine 0.98 Estim Creat Clear Calc 47.08 Est GFR (MDRD) Af Amer 74 Est GFR (MDRD) Non-Af 61 BUN/Creatinine Ratio 18.3 Glucose 98 Calcium 8.6 Prealbumin 6.9 L Blood Type Antibody Screen Crossmatch Medical Necessity - Tobacco Use Smoking Status: Current every day smoker Tobacco Use: Cigarettes Assessment/Plan 1. 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 2. Nonhealing necrotizing infected diabetic ulcer abscess right lower abdominal wall. 3. Hematoma left medial breast, sequela. 4. Hematoma right lower abdominal wall, sequela. 5. Diabetes mellitus. 6. Smoker. 7. Anemia of chronic disease, acute on chronic. 8. s/p surgical preparation left breast with incision and drainage and excisional debridement nonhealing necrotizing infected diabetic ulcer abscess and completion mastectomy (270 cm2) and surgical preparation right lower abdominal wall with incision and drainage and excisional debridement nonhealing necrotizing infected diabetic ulcer abscess (616 cm2). VAC change today was painful. Needed IV analgesia. To be changed three times per day at 150 mmHg continuous suction. Wound culture shows GNR possible Pseudomonas. Continue Meropenem. Prealbumin was 6.9. Encourage nutritional supplementation with protein to help the healing process. Hgb was 8.0. She has anemia of chronic disease, acute on chronic. She had 650 ml of operative blood loss. She is getting PRBC today. The wounds are large and complex and would be overwhelming to care for at home. She needs to go to an ECF. The patient and her were in agreement. After the infection is treated and the wounds are stable, may proceed with further operative debridement and secondary wound closure. Will discuss with the patient at the appropriate time. After discharge, can followup at the [facility]. Encouraged patient to stop smoking as it may have deleterious effects on wound healing.
--- NOTE | 2018-08-20 14:24 | PCM.PROGNOTE ---
Subjective: Extensive debridement of abdomen and left total mastectomy this AM. Pt recovering well. No SOB. No cough. No N/V. No fever/chills. Pain 4/10 during dressing change. - Physical Exam General: Alert, Oriented x3, Cooperative HEENT: Atraumatic, PERRLA, EOMI, Normocephalic Neck: Supple, No JVD, Negative Carotid Bruits Lungs: Clear to auscultation, Normal air movement Cardiovascular: Regular rate, No murmurs Abdomen: Bowel Sounds Present, Soft, Non Tender Extremities: No edema, Capillary Refill Less than 3 Seconds Skin: No rashes, No breakdown Musculoskeletal: No Tenderness to Palpation of Joints or Extremities Neurological: Cranial nerves II-XII grossly intact Psych/Mental Status: Normal Affect, Appropriate, Alert and oriented to time, place, person, mood and affect Vital Signs Temp Pulse Resp BP Pulse Ox 98.4 F 78 16 89/34 L 93 08/20/18 12:40 08/20/18 12:40 08/20/18 12:40 08/20/18 12:40 08/20/18 12:40 Oxygen Flow Rate (L/min) 2 Oxygen Delivery Method Nasal Cannula Weight: 250 lb 3.206 oz Body Mass Index (BMI) 45.7 Finger Stick Blood Glucose 133 Intake and Output for Last 24 Hours 08/18/18 08/19/18 08/20/18 23:59 23:59 23:59 Intake Total 8443.7 / 8443.7 1475 / 1475 Output Total 500 / 500 450 / 450 Balance 7943.7 / 7943.7 1025 / 1025 Microbiology Past 72 Hours 08/19/18 16:13 Wound Culture - Preliminary Tissue - Breast No growth-Final to follow 08/19/18 09:20 Wound Culture - Preliminary Wound - Breast GNR Poss Pseudomonas sp 08/19/18 09:20 Wound Culture - Preliminary Wound Drainage - Aerobic & Anaerobic Swabs GNR Poss Pseudomonas sp Laboratory Tests Past 24 Hrs 08/18/18 08/19/18 08/19/18 15:25 06:50 15:05 WBC RBC Hgb Hct MCV MCH MCHC RDW RDW Differential Plt Count MPV Immature Gran % (Auto) Neut % (Auto) Lymph % (Auto) [place] % (Auto) Eos % (Auto) Baso % (Auto) Absolute Neuts (auto) Absolute Lymphs (auto) Total Counted Differential Comment Diff Path Review Reviewed Sodium Potassium 3.1 L Chloride Carbon Dioxide Anion Gap BUN Creatinine Estim Creat Clear Calc Est GFR (MDRD) Af Amer Est GFR (MDRD) Non-Af BUN/Creatinine Ratio Glucose Calcium Prealbumin Blood Type O POSITIVE Antibody Screen NEGATIVE Crossmatch See Detail 08/19/18 08/20/18 08/20/18 16:40 05:05 05:05 WBC 21.3 H RBC 3.15 L Hgb 8.9 L 8.0 L Hct 28.9 L 25.6 L MCV 81.3 MCH 25.4 L MCHC 31.3 L RDW 16.1 H RDW Differential 47.4 H Plt Count 377 MPV 9.9 Immature Gran % (Auto) 1.000 H Neut % (Auto) 82.5 H Lymph % (Auto) 7.6 L [place] % (Auto) 8.5 Eos % (Auto) 0.2 Baso % (Auto) 0.2 Absolute Neuts (auto) 17.6 H Absolute Lymphs (auto) 1.63 Total Counted Not Reportable Differential Comment SCANNED Diff Path Review Sodium 141 Potassium 3.6 Chloride 110 H Carbon Dioxide 23.0 Anion Gap 8 BUN 18 Creatinine 0.98 Estim Creat Clear Calc 47.08 Est GFR (MDRD) Af Amer 74 Est GFR (MDRD) Non-Af 61 BUN/Creatinine Ratio 18.3 Glucose 98 Calcium 8.6 Prealbumin 6.9 L Blood Type Antibody Screen Crossmatch POC Glucose 08/19/18 17:51 POC Glucose 113 H Medical Necessity - Tobacco Use Smoking Status: Current every day smoker Tobacco Use: Cigarettes Assessment/Plan 1. Acute sepsis 2/2 Recurrent left breast abscess. Continue Vanc/Anika, also received clinda in the ER. Dr. Lopez feels abdomen healing well, left breast needs total mastectomy. ID reconsulted. Cultures have shown P rettgeri, M marganii, MSSA, B fragilis. BP improved. Afebrile. MRSA screen neg. UA/CXR neg. WBC 23.8-->15.3-->21.3. May have to reduce dilaudid if BP continues to trend low. -Wound cx with possible Pseudomonas. 2. Low K, mag - repleted, recheck. Phos wnl 3. NATHALIE - 2/2 sepsis - resolved. 4. Microcytic anemia - 12.0-10.4. Likely dilutional. Trend. Iron deficient. Provided venofer + PO, got 1 unit PRBC. 5. CAD prior CABGx2, [place] - plavix, statin, asa, metoprolol, imdur(held) 6. T2DM with morbid obesity 7. HTN - held HCTZ/arb for NATHALIE and hypotension 8. HLD - statin 9. Depression - zoloft/wellbutrin. DVT ppx: heparin DC planning: SNF, failed at home. This patient was seen by Addi Alejandra PA-C under the supervision of Dr. Daley
--- NOTE | 2018-08-20 15:11 | CASEMGMT ---
Addendum entered by Maggi Ojeda 08/20/18 16:02: SW received a voice mail from Melissa at [facility] and they can accept patient. SW let patient know this information. Plan: [facility] pending insurance approval. Maggi THORNE Original Note: SW spoke with patient and she would like to go to [facility] or [facility]. SW told her SW will check with these facilities. SW called [facility] and they are not in network with patient's insurance. SW called patient's insurance and her out and in network benefits are not the same. SW called [facility] and left message with referral as well as faxed referral. SW spoke with patient and let her know about [facility] and that a referral was sent to [facility]. SW told her if SW hears back from [facility] today SW will let her know otherwise SW will talk with her Thursday. Plan: SNF, possibly [facility] pending their acceptance and insurance approval. Maggi THORNE
[2018-08-20 19:52] LABS: Vancomycin, Trough Level 10.8 ug/mL (5.0-15.0)
[2018-08-20] MEDS: Atorvastatin Calcium 10 MG Tablet PO (21:50)
[2018-08-20] MEDS: Heparin Injection (Vial) 5,000 UNIT/ML VIAL 5000 UNIT SC (21:51)
--- NOTE | 2018-08-20 22:08 | PCM.RX.CS ---
<Gianluca Feliciano W - Last Filed: 08/20/18 22:08> Consult Pharmacy has been consulted to manage selected antiobiotic: Vancomycin Type of Consult: Follow-up Suspected Infection: Sepsis, Skin/Soft tissue Prior Doses of Antibiotics Received/Current Regimen: Medications Vancomycin HCl (Vancomycin) 1,000 mg in 200 mls @ 200 mls/hr IV Q12H ABNER Discontinued Medications Vancomycin HCl 1,500 mg/ (Sodium Chloride) 530 mls @ 250 mls/hr IV Q24H ABNER Last Admin: 08/20/18 17:37 Dose: 250 mls/hr Labs: Sodium 141 mmol/L (136-145) 08/20/18 05:05 Potassium 3.6 mmol/L (3.5-5.1) 08/20/18 05:05 Chloride 110 mmol/L (98-107) H 08/20/18 05:05 Carbon Dioxide 23.0 mmol/L (21.0-32.0) 08/20/18 05:05 8 (5-15) 08/20/18 05:05 BUN 18 mg/dL (7-18) 08/20/18 05:05 0.98 mg/dL (0.55-1.02) 08/20/18 05:05 Est GFR (MDRD) Af Amer 74 mL/min (>60) 08/20/18 05:05 Est GFR (MDRD) Non-Af 61 mL/min (>60) 08/20/18 05:05 18.3 RATIO (10-20) 08/20/18 05:05 Glucose 98 mg/dL (74-106) 08/20/18 05:05 Vancomycin Trough 10.8 ug/mL (5.0-15.0) 08/20/18 18:55 Microbiology: Microbiology 08/19/18 16:16 Tissue - Breast Gram Stain - Final 08/19/18 16:13 Tissue - Breast Gram Stain - Final 08/19/18 16:13 Tissue - Breast Wound Culture - Preliminary No growth-Final to follow 08/19/18 09:20 Wound - Breast Gram Stain - Final 08/19/18 09:20 Wound - Breast Wound Culture - Preliminary GNR Poss Pseudomonas sp 08/19/18 09:20 Wound Drainage - Aerobic & Anaerobic Swabs Gram Stain - Final 08/19/18 09:20 Wound Drainage - Aerobic & Anaerobic Swabs Wound Culture - Preliminary GNR Poss Pseudomonas sp Weight used for dosin lb 1.957 oz Estimated Creatinine Clearance: 47 Goal Trough: 15-20 mcg/mL Pharmacy Plan for Drug Dosing: Trough level received of 10.8. Lower than target range, even though next vanco dose had been hung ~1?hrs before trough draw. This along with increase in CrCl suggested an increase in dose to 1000mg q12h. Will re-draw trough before 4th dose of new order. Pharmacy Service will continue to monitor and adjust dosing as required. Follow-Up Labs: Trough Vancomycin Labs to be done on [date and time ordered]: 08/22/18 @1700 <Nyasia Shah E - Last Filed: 08/22/18 14:54> Consult Labs: Sodium 142 mmol/L (136-145) 08/21/18 08:35 Potassium 3.0 mmol/L (3.5-5.1) L 08/21/18 08:35 Chloride 105 mmol/L (98-107) 08/21/18 08:35 Carbon Dioxide 31.0 mmol/L (21.0-32.0) 08/21/18 08:35 6 (5-15) 08/21/18 08:35 BUN 20 mg/dL (7-18) H 08/21/18 08:35 0.76 mg/dL (0.55-1.02) 08/21/18 08:35 Est GFR (MDRD) Af Amer 98 mL/min (>60) 08/21/18 08:35 Est GFR (MDRD) Non-Af 81 mL/min (>60) 08/21/18 08:35 26.2 RATIO (10-20) H 08/21/18 08:35 Glucose 93 mg/dL (74-106) 08/21/18 08:35 Vancomycin Trough 10.8 ug/mL (5.0-15.0) 08/20/18 18:55 Microbiology: Microbiology 08/19/18 16:13 Tissue - Breast Gram Stain - Final 08/19/18 16:13 Tissue - Breast Wound Culture - Final Proteus mirabilis 08/19/18 16:16 Tissue - Breast Gram Stain - Final 08/19/18 16:16 Tissue - Breast Wound Culture - Final Pseudomonas aeroginosa Proteus mirabilis 08/19/18 09:20 Wound Drainage - Aerobic & Anaerobic Swabs Gram Stain - Final 08/19/18 09:20 Wound Drainage - Aerobic & Anaerobic Swabs Wound Culture - Preliminary Pseudomonas aeroginosa Enterococcus faecalis Enterococcus avium Staphylococcus epidermidis 08/19/18 09:20 Wound Drainage - Aerobic & Anaerobic Swabs Anaerobic Culture - Preliminary Checking for anaerobes, further studies to follow. 08/19/18 09:20 Wound - Breast Gram Stain - Final 08/19/18 09:20 Wound - Breast Wound Culture - Final Pseudomonas aeroginosa Proteus mirabilis 08/19/18 09:20 Wound - Breast Anaerobic Culture - Preliminary Checking for anaerobes, further studies to follow. 08/18/18 16:05 Blood Culture (Wb) - Anticubital Left Blood Culture - Preliminary No growth in 48 hours. 08/18/18 15:25 Blood Culture (Wb) - Anticubital Right Blood Culture - Preliminary No growth in 48 hours. Pharmacy Plan for Drug Dosing: Pharmacy Service will continue to monitor and adjust dosing as required. Labs to be done on [date and time ordered]: I admitted this pt and somebody else took over. I signed the first initial consult. Any subsequent pharm consult notes goes to the physicain who took over. Please forward this not to that provider.
[2018-08-21] VITALS (15 sets, daily range): BP systolic 103–126; BP diastolic 35–61; PULSE 65–95; RESP 16–18; TEMP 36.6–37.3; O2SAT 92–97
[2018-08-21] MEDS: Vancomycin IV 1,000 MG/200 ML BAG 200 MG IV ×2 (05:23→17:41)
[2018-08-21 09:03] LABS: Absolute Lymphocyte Count 2.18 X10^3/ul (0.83-4.51); Absolute Neutrophil Count 14.9 X10^3/uL (2.0-7.7); Basophil# 0.04 X10^3/uL; Basophil% 0.2 % (0-1); Eosinophil# 0.26 X10^3/uL; Eosinophils% 1.3 % (0-5); Hematocrit 30.6 % (37-47); Hemoglobin 9.9 g/dl (12.0-15.0); Lymphocyte # 2.18 X10^3/ul (4.0); Lymphocyte % 11.3 % (19-41); Mean Corp Hgb Conc 32.4 g/gl (32-36); Mean Corpuscular Hgb 26.6 pg (27.0-32.0); Mean Corpuscular Volume 82.3 fL (81-99); Mean Platelet Vol. 9.8 fl (6.2-12.0); Monocyte# 1.52 X10^3/uL; Monocyte% 7.9 % (0-10); Neutrophil # 14.92 X10^3/uL (2.7-7.7); Neutrophil % 77.3 % (47-70); Platelet Count 391 K/mm3 (150-450); RBC Distribution Width CV 15.9 % (11.6-14.6); RBC Distribution Width SD 47.7 fl (35.1-43.9); Red Blood Count 3.72 M/mm3 (4.2-5.4); White Blood Count 19.3 K/mm3 (4.4-11.0)
[2018-08-21 09:04] LABS: Differential Indicated SCAN CRITERIA MET; POSITIVE COUNT YES; POSITIVE DIFFERENTIAL YES; POSITIVE MORPHOLOGY YES
[2018-08-21 09:07] LABS: Anion Gap 6 (5-15); BUN 20 mg/dL (7-18); BUN/Creat Ratio 26.2 RATIO (10-20); Chloride 105 mmol/L (98-107); Creatinine, Serum 0.76 mg/dL (0.55-1.02); EST Glomerular Filtration Rate 81 mL/min (>60); Est Glom Filt Rate - Afr Amer 98 mL/min (>60); Glucose 93 mg/dL (74-106); Sodium Level 142 mmol/L (136-145)
[2018-08-21] MEDS: Heparin Injection (Vial) 5,000 UNIT/ML VIAL 5000 UNIT SC ×2 (09:34→22:14)
[2018-08-21] MEDS: Docusate Sodium 100 MG Capsule PO ×2 (09:34→22:14)
[2018-08-21] MEDS: buPROPion (XL) 300 MG TABLET.XL PO (09:35)
[2018-08-21] MEDS: Metoprolol Tartrate 25 MG Tablet PO ×2 (09:35→22:15)
[2018-08-21] MEDS: Sertraline 100 MG Tablet PO (09:35)
[2018-08-21] MEDS: Clopidogrel Bisulfate 75 MG Tablet PO (09:35)
[2018-08-21] MEDS: diazePAM 5 MG Tablet PO ×4 (09:47→22:15)
[2018-08-21] MEDS: 0.9% NaCl Peripheral Flush Adult/Peds IV (09:48)
[2018-08-21] MEDS: HYDROmorphone 1 MG/ML Syringe IV (09:48)
[2018-08-21 09:52] LABS: Hypochromasia 2+
[2018-08-21] MEDS: Iron Polysaccharide Complex 150 MG CAPSULE PO (11:50)
--- NOTE | 2018-08-21 12:51 | PCM.PROGNOTE ---
Subjective: Up in chair. Mild wheezing RLL. Some SOB with exertion. No SOB at rest. No cough. No fever / chills. Pain at wounds is 8/10. No N/V/D. No BM x 3 days. Does not feel constipated. - Physical Exam General: Alert, Oriented x3, Cooperative HEENT: Atraumatic, PERRLA, EOMI, Normocephalic Neck: Supple, No JVD, Negative Carotid Bruits Lungs: Diminished, Wheezes - RLL Cardiovascular: Regular rate, No murmurs Abdomen: Bowel Sounds Present, Soft, Non Tender Extremities: No edema, Capillary Refill Less than 3 Seconds Skin: No rashes, No breakdown Musculoskeletal: No Tenderness to Palpation of Joints or Extremities Neurological: Cranial nerves II-XII grossly intact Psych/Mental Status: Normal Affect, Appropriate, Alert and oriented to time, place, person, mood and affect Vital Signs Temp Pulse Resp BP Pulse Ox 97.9 F 78 18 125/61 H 96 08/21/18 08:00 08/21/18 11:30 08/21/18 08:00 08/21/18 09:35 08/21/18 08:07 Oxygen Flow Rate (L/min) 2 Oxygen Delivery Method Room Air Weight: 250 lb 3.206 oz Body Mass Index (BMI) 45.7 Finger Stick Blood Glucose 133 Intake and Output for Last 24 Hours 08/19/18 08/20/18 08/21/18 23:59 23:59 23:59 Intake Total 8443.7 / 8443.7 2355 / 3232 1575 / 1575 Output Total 500 / 500 450 / 1650 2300 / 2300 Balance 7943.7 / 7943.7 1905 / 1582 -725 / -725 Microbiology Past 72 Hours 08/19/18 09:20 Gram Stain - Final Wound Drainage - Aerobic & Anaerobic Swabs Wound Culture - Preliminary Pseudomonas aeroginosa GPC Poss Enterococcus sp Alpha hemolytic organism Coag Negative Staph 08/19/18 16:16 Gram Stain - Final Tissue - Breast Wound Culture - Preliminary Pseudomonas aeroginosa Gram negative balta 08/19/18 16:13 Gram Stain - Final Tissue - Breast Wound Culture - Preliminary Gram negative balta 08/19/18 09:20 Gram Stain - Final Wound - Breast Wound Culture - Preliminary GNR Poss Pseudomonas sp Gram negative balta 08/18/18 16:05 Blood Culture - Preliminary Blood Culture (Wb) - Anticubital Left No growth in 48 hours. 08/18/18 15:25 Blood Culture - Preliminary Blood Culture (Wb) - Anticubital Right No growth in 48 hours. Laboratory Tests Past 24 Hrs 08/18/18 08/19/18 08/20/18 15:25 06:50 18:55 WBC RBC Hgb Hct MCV MCH MCHC RDW RDW Differential Plt Count MPV Immature Gran % (Auto) Neut % (Auto) Lymph % (Auto) Robertson % (Auto) Eos % (Auto) Baso % (Auto) Absolute Neuts (auto) Absolute Lymphs (auto) Total Counted Diff Path Review Reviewed Hypochromasia Sodium Potassium Chloride Carbon Dioxide Anion Gap BUN Creatinine Estim Creat Clear Calc Est GFR (MDRD) Af Amer Est GFR (MDRD) Non-Af BUN/Creatinine Ratio Glucose Calcium Vancomycin Trough 10.8 Crossmatch See Detail 08/21/18 08/21/18 08:35 08:35 WBC 19.3 H RBC 3.72 L Hgb 9.9 L Hct 30.6 L MCV 82.3 MCH 26.6 L MCHC 32.4 RDW 15.9 H RDW Differential 47.7 H Plt Count 391 MPV 9.8 Immature Gran % (Auto) 2.000 H Neut % (Auto) 77.3 H Lymph % (Auto) 11.3 L Robertson % (Auto) 7.9 Eos % (Auto) 1.3 Baso % (Auto) 0.2 Absolute Neuts (auto) 14.9 H Absolute Lymphs (auto) 2.18 Total Counted Not Reportable Diff Path Review May foll Hypochromasia 2+ Sodium 142 Potassium 3.0 L Chloride 105 Carbon Dioxide 31.0 Anion Gap 6 BUN 20 H Creatinine 0.76 Estim Creat Clear Calc 60.70 Est GFR (MDRD) Af Amer 98 Est GFR (MDRD) Non-Af 81 BUN/Creatinine Ratio 26.2 H Glucose 93 Calcium 9.0 Vancomycin Trough Crossmatch Medical Necessity - Tobacco Use Smoking Status: Current every day smoker Tobacco Use: Cigarettes Assessment/Plan 1. Acute sepsis 2/2 Recurrent left breast abscess. Continue Vanc/Anika, also received clinda in the ER. Dr. Lopez feels abdomen healing well, left breast needs total mastectomy. ID reconsulted. Cultures have shown P rettgeri, M marganii, MSSA, B fragilis. BP improved. Afebrile. MRSA screen neg. UA/CXR neg. WBC 23.8-->15.3-->21.3-->19.3 -Wound cx with Pseudomonas, GNR, GPC possible Enterococcus, alpha hemolytic org, Coag neg staph/ -Blood cultures negative. 2. Low K - replete. 3. NATHALIE - 2/2 sepsis - resolved. 4. Microcytic anemia - 12.0-10.4. Likely dilutional. Trend. Iron deficient. Provided venofer + PO, got 1 unit PRBC. 5. CAD prior CABGx2, [place] - plavix, statin, asa, metoprolol, imdur(held) 6. T2DM with morbid obesity 7. HTN - held HCTZ/arb for NATHALIE and hypotension - reintroduce as needed. 8. HLD - statin 9. Depression - zoloft/wellbutrin. 10. Ongoing nicotine abuse - denies underlying lung dz. Still smokes. Faint wheeze. Add aerosols. Needs outpatient PFTs. DVT ppx: heparin DC planning: SNF, failed at home, wound vac for both wounds. May need PICC and IV abx. This patient was seen by Addi Alejandra PA-C under the supervision of Dr. Daley
[2018-08-21 14:18] LABS: Magnesium 1.4 mg/dL (1.6-2.6)
[2018-08-21] MEDS: HYDROmorphone 2 MG TABLET PO (18:01)
--- NOTE | 2018-08-21 18:21 | NURSING ---
attempted to remove pt's thurston catheter earlier in shift but pt refused at the time. Charge nurse, Hilary stevens.
[2018-08-21] MEDS: Atorvastatin Calcium 10 MG Tablet PO (22:14)
[2018-08-22] VITALS (16 sets, daily range): BP systolic 105–122; BP diastolic 35–52; PULSE 70–85; RESP 15–18; TEMP 36.6–36.8; O2SAT 92–98
[2018-08-22] MEDS: Vancomycin IV 1,000 MG/200 ML BAG 200 MG IV ×2 (04:51→21:53)
[2018-08-22] MEDS: HYDROmorphone 2 MG TABLET PO (06:51)
[2018-08-22] MEDS: Iron Polysaccharide Complex 150 MG CAPSULE PO (07:39)
[2018-08-22] MEDS: Sertraline 100 MG Tablet PO (09:18)
[2018-08-22] MEDS: Metoprolol Tartrate 25 MG Tablet PO ×2 (09:19→21:59)
[2018-08-22] MEDS: Clopidogrel Bisulfate 75 MG Tablet PO (09:19)
[2018-08-22] MEDS: Docusate Sodium 100 MG Capsule PO ×2 (09:19→21:57)
[2018-08-22] MEDS: buPROPion (XL) 300 MG TABLET.XL PO (09:19)
[2018-08-22] MEDS: Heparin Injection (Vial) 5,000 UNIT/ML VIAL 5000 UNIT SC ×2 (09:19→21:58)
[2018-08-22] MEDS: diazePAM 5 MG Tablet PO ×3 (09:21→22:04)
--- NOTE | 2018-08-22 12:09 | PCM.PROGNOTE ---
Subjective: Pt reports improved breathing and compliance with IS. No Wheezing, no LE edema, no cough. Pain is controlled with current regimen. She is very anxious and tearful. She cried for several minutes discussing the many issues over the past year - loss of pets, intermediate, bankruptcy, her sister that has psychiatric issues that she takes care of, her medical issues, and her new surgical disfigurement. I have strongly advised counselling when she is discharged, she is reluctantly considering this. - Physical Exam General: Alert, Oriented x3, Cooperative HEENT: Atraumatic, PERRLA, EOMI, Normocephalic Neck: Supple, No JVD, Negative Carotid Bruits Lungs: Clear to auscultation, Normal air movement Cardiovascular: Regular rate, No murmurs Abdomen: Bowel Sounds Present, Soft, Non Tender, Obese Extremities: No edema, Capillary Refill Less than 3 Seconds Skin: No rashes, No breakdown Musculoskeletal: No Tenderness to Palpation of Joints or Extremities Neurological: Cranial nerves II-XII grossly intact Psych/Mental Status: Anxious, Depressed, Alert and oriented to time, place, person, mood and affect Vital Signs Temp Pulse Resp BP Pulse Ox 98.2 F 81 16 105/35 L 92 08/22/18 09:50 08/22/18 10:00 08/22/18 10:00 08/22/18 09:50 08/22/18 12:05 Oxygen Flow Rate (L/min) 2 Oxygen Delivery Method Nasal Cannula Weight: 250 lb 3.206 oz Body Mass Index (BMI) 45.7 Finger Stick Blood Glucose 133 Intake and Output for Last 24 Hours 08/20/18 08/21/18 08/22/18 23:59 23:59 23:59 Intake Total 2355 / 3232 2285 / 2838 1459 / 1459 Output Total 450 / 1650 2950 / 2950 Balance 1905 / 1582 -665 / -112 1459 / 1459 Microbiology Past 72 Hours 08/19/18 16:13 Gram Stain - Final Tissue - Breast Wound Culture - Final Proteus mirabilis 08/19/18 16:16 Gram Stain - Final Tissue - Breast Wound Culture - Final Pseudomonas aeroginosa Proteus mirabilis 08/19/18 09:20 Gram Stain - Final Wound Drainage - Aerobic & Anaerobic Swabs Wound Culture - Preliminary Pseudomonas aeroginosa Enterococcus faecalis Enterococcus avium Staphylococcus epidermidis Anaerobic Culture - Preliminary Checking for anaerobes, further studies to follow. 08/19/18 09:20 Gram Stain - Final Wound - Breast Wound Culture - Final Pseudomonas aeroginosa Proteus mirabilis Anaerobic Culture - Preliminary Checking for anaerobes, further studies to follow. 08/18/18 16:05 Blood Culture - Preliminary Blood Culture (Wb) - Anticubital Left No growth in 48 hours. 08/18/18 15:25 Blood Culture - Preliminary Blood Culture (Wb) - Anticubital Right No growth in 48 hours. Laboratory Tests Past 24 Hrs 08/21/18 08:35 Magnesium 1.4 L Medical Necessity - Tobacco Use Smoking Status: Current every day smoker Tobacco Use: Cigarettes Assessment/Plan 1. Acute sepsis 2/2 Recurrent left breast abscess. Continue Vanc/Anika, also received clinda in the ER. Dr. Lopez feels abdomen healing well, left breast needs total mastectomy. ID reconsulted. Cultures have shown P rettgeri, M marganii, MSSA, B fragilis. BP improved. Afebrile. MRSA screen neg. UA/CXR neg. WBC 23.8-->15.3-->21.3-->19.3 -Wound cx with Pseudomonas, Proteus, Enterococcus, Staph epi. -Blood cultures negative. -PICC line and IV abx needed. 2. Low K/Mag - replete. Repeat blood draws in AM, unable to obtain this AM. 3. NATHALIE - 2/2 sepsis - resolved. 4. Microcytic anemia - Improved. Likely dilutional. Iron deficient. Provided venofer + PO, got 1 unit PRBC. 5. CAD prior CABGx2, [place] - plavix, statin, asa, metoprolol, imdur(held) 6. T2DM with morbid obesity 7. HTN - held HCTZ/arb for NATHALIE and hypotension - reintroduce as needed. 8. HLD - statin 9. Depression - zoloft/wellbutrin. She needs outpatient counselling (see subjective), will refer as o/p to counseling center. 10. Ongoing nicotine abuse - denies underlying lung dz. Still smokes. Faint wheeze. Add aerosols. Needs outpatient PFTs. DVT ppx: heparin DC planning: SNF possibly tomorrow. This patient was seen by Addi Alejandra PA-C under the supervision of Dr. Daley
[2018-08-22] MEDS: Atorvastatin Calcium 10 MG Tablet PO (21:58)
[2018-08-22 22:19] LABS: Absolute Lymphocyte Count 2.17 X10^3/ul (0.83-4.51); Absolute Neutrophil Count 13.3 X10^3/uL (2.0-7.7); Basophil# 0.05 X10^3/uL; Basophil% 0.3 % (0-1); Eosinophil# 0.44 X10^3/uL; Eosinophils% 2.5 % (0-5); Hematocrit 28.6 % (37-47); Hemoglobin 9.1 g/dl (12.0-15.0); Lymphocyte # 2.17 X10^3/ul (4.0); Lymphocyte % 12.2 % (19-41); Mean Corp Hgb Conc 31.8 g/gl (32-36); Mean Corpuscular Hgb 26.3 pg (27.0-32.0); Mean Corpuscular Volume 82.7 fL (81-99); Mean Platelet Vol. 9.7 fl (6.2-12.0); Monocyte# 1.29 X10^3/uL; Monocyte% 7.3 % (0-10); Neutrophil # 13.32 X10^3/uL (2.7-7.7); Neutrophil % 74.9 % (47-70); POSITIVE COUNT YES; POSITIVE DIFFERENTIAL NO; POSITIVE MORPHOLOGY YES; Platelet Count 403 K/mm3 (150-450); RBC Distribution Width CV 16.4 % (11.6-14.6); RBC Distribution Width SD 48.8 fl (35.1-43.9); Red Blood Count 3.46 M/mm3 (4.2-5.4); White Blood Count 17.8 K/mm3 (4.4-11.0)
[2018-08-22 22:26] LABS: Anion Gap 3 (5-15); BUN 24 mg/dL (7-18); BUN/Creat Ratio 36.8 RATIO (10-20); Calcium,Total 9.1 mg/dL (8.5-10.1); Chloride 106 mmol/L (98-107); Creatinine, Serum 0.65 mg/dL (0.55-1.02); EST Glomerular Filtration Rate 97 mL/min (>60); Est Glom Filt Rate - Afr Amer 118 mL/min (>60); Estimated Creatinine Clearance 70.98 ml/min; Glucose 109 mg/dL (74-106); Magnesium 1.5 mg/dL (1.6-2.6); Potassium 3.4 mmol/L (3.5-5.1); Sodium Level 140 mmol/L (136-145)
[2018-08-22 22:57] LABS: Vancomycin, Trough Level 14.9 ug/mL (5.0-15.0)
--- NOTE | 2018-08-22 23:14 | PCM.RX.CS ---
Consult Pharmacy has been consulted to manage selected antiobiotic: Vancomycin Type of Consult: Follow-up Suspected Infection: Sepsis Prior Doses of Antibiotics Received/Current Regimen: Medications Vancomycin HCl (Vancomycin) 1,000 mg in 200 mls @ 200 mls/hr IV Q12H ABNER Last Admin: 08/22/18 21:53 Dose: 200 mls/hr Labs: Sodium 140 mmol/L (136-145) 08/22/18 21:50 Potassium 3.4 mmol/L (3.5-5.1) L 08/22/18 21:50 Chloride 106 mmol/L (98-107) 08/22/18 21:50 Carbon Dioxide 31.0 mmol/L (21.0-32.0) 08/22/18 21:50 3 (5-15) L 08/22/18 21:50 BUN 24 mg/dL (7-18) H 08/22/18 21:50 0.65 mg/dL (0.55-1.02) 08/22/18 21:50 Est GFR (MDRD) Af Amer 118 mL/min (>60) 08/22/18 21:50 Est GFR (MDRD) Non-Af 97 mL/min (>60) 08/22/18 21:50 36.8 RATIO (10-20) H 08/22/18 21:50 Glucose 109 mg/dL (74-106) H 08/22/18 21:50 Vancomycin Trough 14.9 ug/mL (5.0-15.0) 08/22/18 21:50 Microbiology: Microbiology 08/19/18 16:13 Tissue - Breast Gram Stain - Final 08/19/18 16:13 Tissue - Breast Wound Culture - Final Proteus mirabilis 08/19/18 16:16 Tissue - Breast Gram Stain - Final 08/19/18 16:16 Tissue - Breast Wound Culture - Final Pseudomonas aeroginosa Proteus mirabilis 08/19/18 09:20 Wound Drainage - Aerobic & Anaerobic Swabs Gram Stain - Final 08/19/18 09:20 Wound Drainage - Aerobic & Anaerobic Swabs Wound Culture - Preliminary Pseudomonas aeroginosa Enterococcus faecalis Enterococcus avium Staphylococcus epidermidis 08/19/18 09:20 Wound Drainage - Aerobic & Anaerobic Swabs Anaerobic Culture - Preliminary Checking for anaerobes, further studies to follow. 08/19/18 09:20 Wound - Breast Gram Stain - Final 08/19/18 09:20 Wound - Breast Wound Culture - Final Pseudomonas aeroginosa Proteus mirabilis 08/19/18 09:20 Wound - Breast Anaerobic Culture - Preliminary Checking for anaerobes, further studies to follow. 08/18/18 16:05 Blood Culture (Wb) - Anticubital Left Blood Culture - Preliminary No growth in 48 hours. 08/18/18 15:25 Blood Culture (Wb) - Anticubital Right Blood Culture - Preliminary No growth in 48 hours. Weight used for dosin kg Estimated Creatinine Clearance: 71 Goal Trough: 15-20 mcg/mL Pharmacy Plan for Drug Dosing: Vancomycin trough level was drawn late due to loss of IV line pending PICC placement. The 16+ hour level came back at 14.9. Accounting for late draw and increase in CrCl from 60-71 will continue with dose of 1000mg q12h. Adjusted timing to go from last dose given. Will re-check trough in 4 doses. Pharmacy Service will continue to monitor and adjust dosing as required. Follow-Up Labs: Trough Vancomycin Labs to be done on [date and time ordered]: 08/24/18 @1223
[2018-08-23] VITALS (19 sets, daily range): BP systolic 115–124; BP diastolic 53–77; PULSE 67–84; RESP 15–21; TEMP 36.4–36.9; O2SAT 82–96
[2018-08-23] MEDS: Enoxaparin 40 MG/0.4 ML Syringe SC (06:07)
[2018-08-23] MEDS: Clopidogrel Bisulfate 75 MG Tablet PO (08:06)
[2018-08-23] MEDS: Docusate Sodium 100 MG Capsule PO (08:06)
[2018-08-23] MEDS: Metoprolol Tartrate 25 MG Tablet PO ×2 (08:06→22:28)
[2018-08-23] MEDS: buPROPion (XL) 300 MG TABLET.XL PO (08:06)
[2018-08-23] MEDS: Sertraline 100 MG Tablet PO (08:06)
[2018-08-23] MEDS: Iron Polysaccharide Complex 150 MG CAPSULE PO (08:07)
[2018-08-23] MEDS: diazePAM 5 MG Tablet PO ×3 (08:15→16:42)
[2018-08-23] MEDS: Albuterol 2.5 MG/3 ML VIAL.NEB. INHALATION (09:48)
[2018-08-23 09:55] LABS: Phosphorus 2.6 mg/dL (2.5-4.9)
[2018-08-23] MEDS: HYDROmorphone 1 MG/ML Syringe IV (10:22)
[2018-08-23] MEDS: Vancomycin IV 1,000 MG/200 ML BAG 200 MG IV ×2 (10:28→22:27)
--- NOTE | 2018-08-23 11:34 | CASEMGMT ---
Received call from Melissa at [facility] today. She said MMO is asking for updates. SW faxed updates to [facility]. Maggi MAY MSW
--- NOTE | 2018-08-23 11:49 | NURSING ---
wound photo: left breast
--- NOTE | 2018-08-23 11:49 | NURSING ---
wound photo: right lower abdomen
[2018-08-23] MEDS: HYDROmorphone 2 MG TABLET PO (11:53)
--- NOTE | 2018-08-23 12:55 | PCM.PROGNOTE ---
Subjective: Mildly SOB this AM. Mildly wheezy. no edema. Pain is controlled at rest. Severe with wound dressing changes. No fever/chills. Waiting for placement in SNF. - Physical Exam General: Alert, Oriented x3, Cooperative HEENT: Atraumatic, PERRLA, EOMI, Normocephalic Neck: Supple, No JVD, Negative Carotid Bruits Lungs: Normal air movement, Wheezes Cardiovascular: Regular rate, No murmurs Abdomen: Bowel Sounds Present, Soft, Non Tender Extremities: No edema, Capillary Refill Less than 3 Seconds Skin: No rashes, No breakdown Musculoskeletal: No Tenderness to Palpation of Joints or Extremities Neurological: Cranial nerves II-XII grossly intact Psych/Mental Status: Normal Affect, Appropriate Vital Signs Temp Pulse Resp BP Pulse Ox 97.9 F 78 21 H 124/57 H 93 08/23/18 07:53 08/23/18 09:48 08/23/18 09:48 08/23/18 08:06 08/23/18 07:53 Oxygen Flow Rate (L/min) 2 Oxygen Delivery Method Nasal Cannula Weight: 250 lb 3.206 oz Body Mass Index (BMI) 45.7 Finger Stick Blood Glucose 133 Intake and Output for Last 24 Hours 08/21/18 08/22/18 08/23/18 23:59 23:59 23:59 Intake Total 2285 / 2838 1819 / 2169 900 / 900 Output Total 2950 / 2950 Balance -665 / -112 1819 / 2169 900 / 900 Microbiology Past 72 Hours 08/19/18 16:16 Gram Stain - Final Tissue - Breast Wound Culture - Final Pseudomonas aeroginosa Proteus mirabilis Anaerobic Culture - Preliminary Checking for anaerobes, further studies to follow. 08/19/18 16:13 Gram Stain - Final Tissue - Breast Wound Culture - Final Proteus mirabilis Anaerobic Culture - Preliminary Checking for anaerobes, further studies to follow. 08/19/18 09:20 Gram Stain - Final Wound Drainage - Aerobic & Anaerobic Swabs Wound Culture - Final Pseudomonas aeroginosa Enterococcus faecalis Enterococcus avium Staphylococcus epidermidis Anaerobic Culture - Final Anaerobic cocci 08/19/18 09:20 Gram Stain - Final Wound - Breast Wound Culture - Final Pseudomonas aeroginosa Proteus mirabilis Anaerobic Culture - Final No anaerobic bacteria isolated. 08/18/18 16:05 Blood Culture - Preliminary Blood Culture (Wb) - Anticubital Left No growth in 48 hours. 08/18/18 15:25 Blood Culture - Preliminary Blood Culture (Wb) - Anticubital Right No growth in 48 hours. Laboratory Tests Past 24 Hrs 08/22/18 08/22/18 08/22/18 21:50 21:50 21:50 WBC 17.8 H RBC 3.46 L Hgb 9.1 L Hct 28.6 L MCV 82.7 MCH 26.3 L MCHC 31.8 L RDW 16.4 H RDW Differential 48.8 H Plt Count 403 MPV 9.7 Immature Gran % (Auto) 2.800 H Neut % (Auto) 74.9 H Lymph % (Auto) 12.2 L Anson % (Auto) 7.3 Eos % (Auto) 2.5 Baso % (Auto) 0.3 Absolute Neuts (auto) 13.3 H Absolute Lymphs (auto) 2.17 Total Counted Not Reportable Diff Path Review May foll Sodium 140 Potassium 3.4 L Chloride 106 Carbon Dioxide 31.0 Anion Gap 3 L BUN 24 H Creatinine 0.65 Estim Creat Clear Calc 70.98 Est GFR (MDRD) Af Amer 118 Est GFR (MDRD) Non-Af 97 BUN/Creatinine Ratio 36.8 H Glucose 109 H Calcium 9.1 Phosphorus Magnesium 1.5 L Vancomycin Trough 14.9 08/23/18 09:20 WBC RBC Hgb Hct MCV MCH MCHC RDW RDW Differential Plt Count MPV Immature Gran % (Auto) Neut % (Auto) Lymph % (Auto) Anson % (Auto) Eos % (Auto) Baso % (Auto) Absolute Neuts (auto) Absolute Lymphs (auto) Total Counted Diff Path Review Sodium Potassium Chloride Carbon Dioxide Anion Gap BUN Creatinine Estim Creat Clear Calc Est GFR (MDRD) Af Amer Est GFR (MDRD) Non-Af BUN/Creatinine Ratio Glucose Calcium Phosphorus 2.6 Magnesium Vancomycin Trough Medical Necessity - Tobacco Use Smoking Status: Current every day smoker Tobacco Use: Cigarettes Assessment/Plan 1. Acute sepsis 2/2 Recurrent left breast abscess. Continue Vanc/Anika, also received clinda in the ER. Dr. Lopez feels abdomen healing well, left breast needs total mastectomy. ID reconsulted. Cultures have shown P rettgeri, M morganii, MSSA, B fragilis. BP improved. Afebrile. MRSA screen neg. UA/CXR neg. WBC improving. -Wound cx with Pseudomonas, Proteus, Enterococcus, Staph epi. -Blood cultures negative. -PICC line and IV abx -Wound vac at [facility] 2. Low K/Mag - replete. Repeat blood draws in AM, unable to obtain this AM. Phos normal. 3. NATHALIE - 2/2 sepsis - resolved. 4. Microcytic anemia - Improved. Likely dilutional. Iron deficient. Provided venofer + PO, got 1 unit PRBC. 5. CAD prior CABGx2, [place] - plavix, statin, asa, metoprolol, imdur(held) 6. T2DM with morbid obesity - diet controlled. 7. HTN - held HCTZ/arb for NATHALIE and hypotension - reintroduce as needed. 8. HLD - statin 9. Depression - zoloft/wellbutrin. She needs outpatient counselling (see subjective), will refer as o/p to counseling center. 10. Ongoing nicotine abuse - denies underlying lung dz. Suspect some degress of COPD. Still smokes. Faint wheeze. Continue duonebs/albuterol. Needs outpatient PFTs. Also needs o/p sleep study. Will do trending overnight pulse ox. DVT ppx: heparin DC planning: [facility] possibly tomorrow. This patient was seen by Addi Alejandra PA-C under the supervision of Dr. Oliveira
--- NOTE | 2018-08-23 13:02 | PCM.PN.ID ---
Subjective: Feeling ok, surgical sites sore, no fever, no n/v/d. - Physical Exam General: Alert, Cooperative, No apparent distress Lungs: Clear to auscultation, Normal air movement Cardiovascular: Regular rate, Regular Rhythm Abdomen: Soft, Non Tender, Non-Distended Skin: Ulcer/ Wound - reviewed photos Vital Signs Temp Pulse Resp BP Pulse Ox 97.9 F 78 21 H 124/57 H 93 08/23/18 07:53 08/23/18 09:48 08/23/18 09:48 08/23/18 08:06 08/23/18 07:53 Oxygen Flow Rate (L/min) 2 Oxygen Delivery Method Nasal Cannula Weight: 113.489 kg Body Mass Index (BMI) 45.7 Finger Stick Blood Glucose 133 Intake and Output for Last 24 Hours 08/21/18 08/22/18 08/23/18 23:59 23:59 23:59 Intake Total 2285 / 2838 1819 / 2169 900 / 900 Output Total 2950 / 2950 Balance -665 / -112 1819 / 2169 900 / 900 Microbiology Past 72 Hours 08/19/18 16:16 Gram Stain - Final Tissue - Breast Wound Culture - Final Pseudomonas aeroginosa Proteus mirabilis Anaerobic Culture - Preliminary Checking for anaerobes, further studies to follow. 08/19/18 16:13 Gram Stain - Final Tissue - Breast Wound Culture - Final Proteus mirabilis Anaerobic Culture - Preliminary Checking for anaerobes, further studies to follow. 08/19/18 09:20 Gram Stain - Final Wound Drainage - Aerobic & Anaerobic Swabs Wound Culture - Final Pseudomonas aeroginosa Enterococcus faecalis Enterococcus avium Staphylococcus epidermidis Anaerobic Culture - Final Anaerobic cocci 08/19/18 09:20 Gram Stain - Final Wound - Breast Wound Culture - Final Pseudomonas aeroginosa Proteus mirabilis Anaerobic Culture - Final No anaerobic bacteria isolated. 08/18/18 16:05 Blood Culture - Preliminary Blood Culture (Wb) - Anticubital Left No growth in 48 hours. 08/18/18 15:25 Blood Culture - Preliminary Blood Culture (Wb) - Anticubital Right No growth in 48 hours. Laboratory Tests Past 24 Hrs 08/22/18 08/22/18 08/22/18 21:50 21:50 21:50 WBC 17.8 H RBC 3.46 L Hgb 9.1 L Hct 28.6 L MCV 82.7 MCH 26.3 L MCHC 31.8 L RDW 16.4 H RDW Differential 48.8 H Plt Count 403 MPV 9.7 Immature Gran % (Auto) 2.800 H Neut % (Auto) 74.9 H Lymph % (Auto) 12.2 L Gentry % (Auto) 7.3 Eos % (Auto) 2.5 Baso % (Auto) 0.3 Absolute Neuts (auto) 13.3 H Absolute Lymphs (auto) 2.17 Total Counted Not Reportable Diff Path Review May foll Sodium 140 Potassium 3.4 L Chloride 106 Carbon Dioxide 31.0 Anion Gap 3 L BUN 24 H Creatinine 0.65 Estim Creat Clear Calc 70.98 Est GFR (MDRD) Af Amer 118 Est GFR (MDRD) Non-Af 97 BUN/Creatinine Ratio 36.8 H Glucose 109 H Calcium 9.1 Phosphorus Magnesium 1.5 L Vancomycin Trough 14.9 08/23/18 09:20 WBC RBC Hgb Hct MCV MCH MCHC RDW RDW Differential Plt Count MPV Immature Gran % (Auto) Neut % (Auto) Lymph % (Auto) Gentry % (Auto) Eos % (Auto) Baso % (Auto) Absolute Neuts (auto) Absolute Lymphs (auto) Total Counted Diff Path Review Sodium Potassium Chloride Carbon Dioxide Anion Gap BUN Creatinine Estim Creat Clear Calc Est GFR (MDRD) Af Amer Est GFR (MDRD) Non-Af BUN/Creatinine Ratio Glucose Calcium Phosphorus 2.6 Magnesium Vancomycin Trough Medical Necessity - Tobacco Use Smoking Status: Current every day smoker Tobacco Use: Cigarettes Route of nutrition/ use of supplements: [] Nutritional Intake: [] IV Site: [] Griffith Catheter: [] - Assessment/Plan Antibiotics: [] Assessment/Plan: [] L breast infection s/p surgical debridement - wound cx 08/19 showing PsA, proteus, e faecalis, e avium. Taken to OR 08/19 for I&D by Dr. Lopez of both sites. Surg cxs with PsA and proteus. Proteus is listed as not sensitive to imipenem, but S to ertapenem. Requested lab do meropenem testing. Cont vanc/vicente. Plan on 10 day course of iv abx after discharge with weekly bmp, cbc, lft, and vanc trough. Wrote rx. Will follow, d/w porter sample case
--- NOTE | 2018-08-23 14:23 | CHAPLAIN ---
Type of Pastoral Visit _x__ Initial Visit ___ Follow-up Visit ___ On-call Visit ___ General Patient Visit ___ Spiritual Assessment ___ Family Conference ___ Bereavement ___ Rapid Response ___ Code Blue ___ Other (describe below) Pastoral Care Referral From _x__ Patient ___ Family _x__ Nurse ___ Physician ___ Meter And Regulator Shop Supervisor ___ Vineyard Tender ___ Other (describe below) Sacrament/Intervention _x__ Active listening ___ Anointing ___ Bahai _x__ Bereavement ___ Communion ___ Hannah exploration ___ _x__ Life review _x__ Prayer ___ Reconciliation ___ Sacrament of Sick _x__ Supportive presence ___ Wedding ___ Other (describe below) Pastoral Comments patient has had many losses in her life in recent months and has feelings of being overwhelmed; pt is talkative and tearful; pt expresses thankfulness to be able to talk and receive support
[2018-08-23 14:50] LABS: Pathologist Review Reviewed
[2018-08-23] MEDS: Ascorbic Acid 500 MG Tablet PO (16:41)
[2018-08-23] MEDS: Atorvastatin Calcium 10 MG Tablet PO (22:29)
--- NOTE | 2018-08-23 23:55 | CPS ---
Pt. initially setup on RA for overnight pulse ox trend. Pulse Ox showed 82%. Pt. was upset at time and agitated. Waited for patient to become relaxed before checking pulse ox reading again. Pulse still showing 82%, so 1L NC was added from 2346 and on for overnight trend.
[2018-08-24] VITALS (10 sets, daily range): BP systolic 115–135; BP diastolic 51–69; PULSE 70–88; RESP 17–18; TEMP 36.4–36.6; O2SAT 91–94
[2018-08-24] MEDS: 0.9% NaCl Peripheral Flush Adult/Peds IV ×2 (04:40→09:32)
[2018-08-24 04:59] LABS: Absolute Lymphocyte Count 2.06 X10^3/ul (0.83-4.51); Absolute Neutrophil Count 12.5 X10^3/uL (2.0-7.7); Basophil# 0.04 X10^3/uL; Basophil% 0.2 % (0-1); Eosinophil# 0.55 X10^3/uL; Eosinophils% 3.3 % (0-5); Hematocrit 28.5 % (37-47); Hemoglobin 8.9 g/dl (12.0-15.0); Lymphocyte # 2.06 X10^3/ul (4.0); Lymphocyte % 12.4 % (19-41); Mean Corp Hgb Conc 31.2 g/gl (32-36); Mean Corpuscular Hgb 26.5 pg (27.0-32.0); Mean Corpuscular Volume 84.8 fL (81-99); Mean Platelet Vol. 9.8 fl (6.2-12.0); Monocyte# 1.09 X10^3/uL; Monocyte% 6.5 % (0-10); Neutrophil # 12.48 X10^3/uL (2.7-7.7); Platelet Count 434 K/mm3 (150-450); RBC Distribution Width CV 17.2 % (11.6-14.6); RBC Distribution Width SD 50.8 fl (35.1-43.9); Red Blood Count 3.36 M/mm3 (4.2-5.4); White Blood Count 16.7 K/mm3 (4.4-11.0)
[2018-08-24 05:09] LABS: POSITIVE DIFFERENTIAL NO; Phosphorus 2.8 mg/dL (2.5-4.9)
[2018-08-24 05:10] LABS: Differential Indicated SCAN CRITERIA MET; POSITIVE COUNT YES; POSITIVE MORPHOLOGY YES
[2018-08-24 05:18] LABS: ALB/GLOB Ratio 0.4 RATIO (0.9-2.4); AST(SGOT) 45 U/L (15-37); Alanine Aminotransfer ALT/SGPT 31 U/L (13-56); Albumin, Serum 1.5 g/dL (3.2-5.0); Alkaline Phosphatase 81 U/L (45-117); Anion Gap 4 (5-15); BUN 20 mg/dL (7-18); BUN/Creat Ratio 36.8 RATIO (10-20); Calcium,Total 9.1 mg/dL (8.5-10.1); Chloride 108 mmol/L (98-107); Cholesterol 75 mg/dL (200); Creatinine, Serum 0.54 mg/dL (0.55-1.02); EST Glomerular Filtration Rate 121 mL/min (>60); Est Glom Filt Rate - Afr Amer 146 mL/min (>60); Estimated Creatinine Clearance 85.43 ml/min; Globulin 3.9 g/dL (2.2-4.2); Glucose 96 mg/dL (74-106); High Density Lipoprotein 25 mg/dL; Potassium 3.9 mmol/L (3.5-5.1); Protein, Total 5.4 g/dL (6.4-8.2); Sodium Level 144 mmol/L (136-145); Triglycerides 106 mg/dL; Very Low Density Lipoprotein 21 mg/dL (5-40)
[2018-08-24 05:41] LABS: Platelet Estimate SLT INC (ADEQ); Red Cell Morphology NORM C+C NORMAL (NORM C&C)
[2018-08-24] MEDS: Enoxaparin 40 MG/0.4 ML Syringe SC (05:48)
--- NOTE | 2018-08-24 07:40 | CASEMGMT ---
Received voice mail that patient was approved to go to [facility]. SW will notify physician. Plan: [facility] Maggi THORNE
[2018-08-24] MEDS: Metoprolol Tartrate 25 MG Tablet PO (09:31)
[2018-08-24] MEDS: Sertraline 100 MG Tablet PO (09:31)
[2018-08-24] MEDS: Ascorbic Acid 500 MG Tablet PO (09:31)
[2018-08-24] MEDS: Magnesium Oxide 400 MG Tablet PO (09:31)
[2018-08-24] MEDS: Iron Polysaccharide Complex 150 MG CAPSULE PO (09:31)
[2018-08-24] MEDS: buPROPion (XL) 300 MG TABLET.XL PO (09:31)
[2018-08-24] MEDS: HYDROmorphone 1 MG/ML Syringe IV (09:32)
[2018-08-24] MEDS: Clopidogrel Bisulfate 75 MG Tablet PO (09:32)
[2018-08-24] MEDS: Vancomycin IV 1,000 MG/200 ML BAG 200 MG IV (09:42)
[2018-08-24 10:06] LABS: Vancomycin, Trough Level 17.9 ug/mL (5.0-15.0)
[2018-08-24 10:16] LABS: Pathologist Review Reviewed
--- NOTE | 2018-08-24 10:41 | PCM.RX.CS ---
Consult Pharmacy has been consulted to manage selected antiobiotic: Vancomycin Type of Consult: Follow-up Suspected Infection: Other Labs: Sodium 144 mmol/L (136-145) 08/24/18 04:35 Potassium 3.9 mmol/L (3.5-5.1) 08/24/18 04:35 Chloride 108 mmol/L (98-107) H 08/24/18 04:35 Carbon Dioxide 32.0 mmol/L (21.0-32.0) 08/24/18 04:35 4 (5-15) L 08/24/18 04:35 BUN 20 mg/dL (7-18) H 08/24/18 04:35 0.54 mg/dL (0.55-1.02) L 08/24/18 04:35 Est GFR (MDRD) Af Amer 146 mL/min (>60) 08/24/18 04:35 Est GFR (MDRD) Non-Af 121 mL/min (>60) 08/24/18 04:35 36.8 RATIO (10-20) H 08/24/18 04:35 Glucose 96 mg/dL (74-106) 08/24/18 04:35 Vancomycin Trough 17.9 ug/mL (5.0-15.0) H 08/24/18 09:30 Microbiology: Microbiology 08/19/18 16:13 Tissue - Breast Gram Stain - Final 08/19/18 16:13 Tissue - Breast Wound Culture - Final Proteus mirabilis 08/19/18 16:13 Tissue - Breast Anaerobic Culture - Final No anaerobic bacteria isolated. 08/19/18 16:16 Tissue - Breast Gram Stain - Final 08/19/18 16:16 Tissue - Breast Wound Culture - Final Pseudomonas aeroginosa Proteus mirabilis#2 08/19/18 16:16 Tissue - Breast Anaerobic Culture - Final No anaerobic bacteria isolated. 08/18/18 16:05 Blood Culture (Wb) - Anticubital Left Blood Culture - Final No growth in 5 days. 08/18/18 15:25 Blood Culture (Wb) - Anticubital Right Blood Culture - Final No growth in 5 days. 08/19/18 09:20 Wound Drainage - Aerobic & Anaerobic Swabs Gram Stain - Final 08/19/18 09:20 Wound Drainage - Aerobic & Anaerobic Swabs Wound Culture - Final Pseudomonas aeroginosa Enterococcus faecalis Enterococcus avium Staphylococcus epidermidis 08/19/18 09:20 Wound Drainage - Aerobic & Anaerobic Swabs Anaerobic Culture - Final Anaerobic cocci 08/19/18 09:20 Wound - Breast Gram Stain - Final 08/19/18 09:20 Wound - Breast Wound Culture - Final Pseudomonas aeroginosa Proteus mirabilis 08/19/18 09:20 Wound - Breast Anaerobic Culture - Final No anaerobic bacteria isolated. Weight used for dosin kg Goal Trough: 15-20 mcg/mL Pharmacy Plan for Drug Dosing: Vancomycin trough at goal. Continue current regimen and recheck after 4 days per policy. Pharmacy Service will continue to monitor and adjust dosing as required. Follow-Up Labs: Trough Vancomycin - 08/28 @ 0930
--- NOTE | 2018-08-24 10:45 | PN.ID_ITS ---
Subjective: Feeling ok, no fever, no n/v/d. - Physical Exam General: Alert, Cooperative, No apparent distress Lungs: Clear to auscultation, Normal air movement Cardiovascular: Regular rate, Regular Rhythm Abdomen: Soft, Non Tender, Non-Distended Skin: Ulcer/ Wound Vital Signs Temp Pulse Resp BP Pulse Ox 97.6 F L 77 18 120/69 92 08/24/18 09:16 08/24/18 09:31 08/24/18 09:16 08/24/18 09:16 08/24/18 09:16 Oxygen Flow Rate (L/min) 1 Oxygen Delivery Method Nasal Cannula Weight: 113.489 kg Body Mass Index (BMI) 45.7 Finger Stick Blood Glucose 133 Intake and Output for Last 24 Hours 08/22/18 08/23/18 08/24/18 23:59 23:59 23:59 Intake Total 1819 / 2169 1377 / 2111 1164 / 1164 Balance 1819 / 2169 1377 / 2111 1164 / 1164 Microbiology Past 72 Hours 08/19/18 16:13 Gram Stain - Final Tissue - Breast Wound Culture - Final Proteus mirabilis Anaerobic Culture - Final No anaerobic bacteria isolated. 08/19/18 16:16 Gram Stain - Final Tissue - Breast Wound Culture - Final Pseudomonas aeroginosa Proteus mirabilis#2 Anaerobic Culture - Final No anaerobic bacteria isolated. 08/18/18 16:05 Blood Culture - Final Blood Culture (Wb) - Anticubital Left No growth in 5 days. 08/18/18 15:25 Blood Culture - Final Blood Culture (Wb) - Anticubital Right No growth in 5 days. 08/19/18 09:20 Gram Stain - Final Wound Drainage - Aerobic & Anaerobic Swabs Wound Culture - Final Pseudomonas aeroginosa Enterococcus faecalis Enterococcus avium Staphylococcus epidermidis Anaerobic Culture - Final Anaerobic cocci 08/19/18 09:20 Gram Stain - Final Wound - Breast Wound Culture - Final Pseudomonas aeroginosa Proteus mirabilis Anaerobic Culture - Final No anaerobic bacteria isolated. Laboratory Tests Past 24 Hrs 08/21/18 08/22/18 08/24/18 08:35 21:50 04:35 WBC RBC Hgb Hct MCV MCH MCHC RDW RDW Differential Plt Count MPV Immature Gran % (Auto) Neut % (Auto) Lymph % (Auto) Wolfe % (Auto) Eos % (Auto) Baso % (Auto) Absolute Neuts (auto) Absolute Lymphs (auto) Total Counted Diff Path Review Reviewed Reviewed Platelet Estimate RBC Morphology Sodium 144 Potassium 3.9 Chloride 108 H Carbon Dioxide 32.0 Anion Gap 4 L BUN 20 H Creatinine 0.54 L Estim Creat Clear Calc 85.43 Est GFR (MDRD) Af Amer 146 Est GFR (MDRD) Non-Af 121 BUN/Creatinine Ratio 36.8 H Glucose 96 Calcium 9.1 Phosphorus Magnesium 2.0 Total Bilirubin 0.20 AST 45 H ALT 31 Alkaline Phosphatase 81 Total Protein 5.4 L Albumin 1.5 L Globulin 3.9 Albumin/Globulin Ratio 0.4 L Triglycerides 106 Cholesterol 75 LDL Cholesterol 29 VLDL Cholesterol 21 HDL Cholesterol 25 L Vancomycin Trough 08/24/18 08/24/18 08/24/18 04:35 04:35 09:30 WBC 16.7 H RBC 3.36 L Hgb 8.9 L Hct 28.5 L MCV 84.8 MCH 26.5 L MCHC 31.2 L RDW 17.2 H RDW Differential 50.8 H Plt Count 434 MPV 9.8 Immature Gran % (Auto) 2.600 H Neut % (Auto) 75.0 H Lymph % (Auto) 12.4 L Wolfe % (Auto) 6.5 Eos % (Auto) 3.3 Baso % (Auto) 0.2 Absolute Neuts (auto) 12.5 H Absolute Lymphs (auto) 2.06 Total Counted Not Reportable Diff Path Review May foll Platelet Estimate SLT INC RBC Morphology NORM C+C Sodium Potassium Chloride Carbon Dioxide Anion Gap BUN Creatinine Estim Creat Clear Calc Est GFR (MDRD) Af Amer Est GFR (MDRD) Non-Af BUN/Creatinine Ratio Glucose Calcium Phosphorus 2.8 Magnesium Total Bilirubin AST ALT Alkaline Phosphatase Total Protein Albumin Globulin Albumin/Globulin Ratio Triglycerides Cholesterol LDL Cholesterol VLDL Cholesterol HDL Cholesterol Vancomycin Trough 17.9 H Medical Necessity - Tobacco Use Smoking Status: Current every day smoker Tobacco Use: Cigarettes Route of nutrition/ use of supplements: [] Nutritional Intake: [] IV Site: [] Griffith Catheter: [] - Assessment/Plan Antibiotics: [] Assessment/Plan: [] L breast infection s/p surgical debridement - wound cx 08/19 showing PsA, proteus, e faecalis, e avium. Taken to OR 08/19 for I&D by Dr. Lopez of both sites. Surg cxs with PsA and proteus. Proteus is listed as not sensitive to imipenem, but S to ertapenem. It is susceptible to meropenem. Cont vanc/vicente. Plan on 10 day course of iv abx after discharge with weekly bmp, cbc, lft, and vanc trough. Wrote rx. Will follow, d/w family preservation caseworker
--- NOTE | 2018-08-24 11:58 | TREXTCA.CO_ITS ---
- Diet 08/19/18 18:56 Diet: Carbohydrate Controlled Is pt able to select menu?: Yes - Routine Orders/Code Status Suppository Type: Dulcolax 10mg Suppository Frequency: Daily PRN O2 Frequency: PRN Keep PO Greater than or Equal to (%): 89 Routine Lab Work: CBC - 5 days, BMP - 5 days Code Status: Full Code - Wound(s) r lower abd Wound Type: Open Surgical Wound Dressing Change: KCI wound VAC Left breast Wound Type: Open Surgical Wound Dressing Change: KCI wound VAC - Therapies Physical Therapy: Eval and Treat Occupational Therapy: Eval and Treat - Problem/Diagnosis (1) Abscess of left breast Status: Acute Current Visit: No (2) Abscess of abdominal wall Status: Acute Current Visit: No (3) Abdominal panniculus, symptomatic Status: Acute Current Visit: No (4) NATHALIE (acute kidney injury) Status: Acute Current Visit: Yes (5) CAD (coronary artery disease) Status: Chronic Current Visit: Yes (6) Depression Status: Chronic Current Visit: Yes (7) Anxiety Status: Chronic Current Visit: Yes (8) Iron deficiency anemia Status: Chronic Current Visit: Yes (9) Aortocoronary bypass status Status: Chronic Comment: CABG x2- DENNIS to LAd, SVG to Diagonal of the LAD 10/31/11 Current Visit: No (10) Atherosclerotic heart disease of [place] coronary artery without angina pectoris Status: Chronic Comment: CABG x2- DENNIS to LAD, SVG to Diagonal of the LAD 10/31/11 Current Visit: No (11) Hyperlipidemia Status: Chronic Current Visit: No (12) Hypertension Status: Chronic Current Visit: No (13) Morbid obesity Status: Chronic Current Visit: No (14) Necrotizing soft tissue infection Status: Chronic Current Visit: No (15) Tobacco use disorder Status: Chronic Current Visit: No (16) Type 2 diabetes mellitus Status: Chronic Current Visit: No - Allergies/Procedures Done in Hospital Allergies/Adverse Reactions: Allergies cephalexin [From Keflex] Allergy (Severe, Verified 07/30/18 13:50) Rash levofloxacin [From Levaquin] Allergy (Severe, Verified 07/30/18 13:50) Rash niacin Allergy (Severe, Verified 07/30/18 13:50) Rash Penicillins Allergy (Severe, Verified 07/30/18 13:50) Anaphylaxis Sulfa (Sulfonamide Antibiotics) Allergy (Severe, Verified 07/30/18 13:50) Rash citalopram [From Celexa] Adverse Reaction (Severe, Verified 07/30/18 13:50) Rash Estrogens Adverse Reaction (Severe, Verified 07/30/18 13:50) blood clots rosuvastatin [From Crestor] Adverse Reaction (Severe, Verified 07/30/18 13:50) myalgias oral contraceptives Adverse Reaction (Severe, Uncoded 07/30/18 13:50) Unknown Procedures: None - Type of Care/Length of Stay Estimated LOS: Convalescent Care Less Than 30 days Type of Care Needed: Skilled Rehab Potential: Fair Prognosis: Fair - Additional Orders/Day of Discharge Day of Discharge: 08/24/18 - Dietary and Speech Recommendations Dietitian Recommendations/Changes: Rec adv diet as tolerated to CHO controlled. Rec 1 packet Casey BID to assist w/ wound healing. Rec Glucerna 120 mL 4x/day w/ medpass when PO diet advanced. - Follow Up Care Primary Care Physician: Manuel Mortensen [Primary Care Provider] - Please follow up with your Primary Care Physician in: as directed Please Follow Up With: James Lopez MD When: 1 week Please Follow Up With: Chan Perea MD When: 2 weeks Please Follow Up With: Chino Kenny MD When: 3-4 weeks
--- NOTE | 2018-08-24 12:46 | CASEMGMT ---
SW spoke with patient and her per their request. They wanted to know what they will be responsible for cost allen at the SNF. SW told them SW can ask [facility] and get back with them. NOLAN called Talia at [facility] and she said patient is covered at 75%. The most she would have to pay is $902.66 as that is her max out of pocket. SW explained this to patient and her . They were satisfied with this answer. Patient's will transport patient once everything is ready. Convalescent was completed on . Maggi MAY PUBLIC SPEAKING PROFESSOR
--- NOTE | 2018-08-24 13:29 | NURSING ---
Verbal report to STEFFANY Lares @ [facility]. Asking for patient to come after 3pm d/t cleaning a bed for her. notified
--- NOTE | 2018-08-24 14:10 | CASEMGMT ---
Orders faxed to [facility]. Patient's will transport patient via private vehicle. Talia from [facility] asked that patient not come until after 300. SW notified patient and her and they were fine with this. RN, junior legal secretary, patient notified. Plan: d/c to [facility] under skilled level of care on a convalescent stay. Patient's transported her via private vehicle. Maggi MAY MSW
[2018-08-24] MEDS: Ipratropium/Albuterol Sulfate 3 ML AMPUL.NEB INHALATION (14:30)
[2018-08-24] MEDS: diazePAM 5 MG Tablet PO (14:35)
--- NOTE | 2018-08-24 15:28 | PCM.DC.SUM ---
Discharge Date and Diagnosis Date of Admission: 08/19/18 Date of Discharge: 08/24/18 - Primary Discharge Diagnosis Acute sepsis secondary to recurrent left breast abscess and panniculitis-Pseudomonas, Proteus mirabilis, Enterococcus faecalis, enterococcus avium, Staphylococcus epidermidis Hypokalemia, hypomagnesemia Acute kidney injury secondary to sepsis Microcytic anemia with iron deficiency History of CAD with prior CABG x2, prior SC Type 2 diabetes with morbid obesity HTN/HLD Depression / Anxiety Ongoing nicotine abuse Suspected Sleep Apnea Suspected COPD - Secondary Discharge Diagnosis Chronic Problems (Last Updated 08/02/18 @ 22:39 by James Lopez MD) CAD (coronary artery disease) (Chronic) Depression (Chronic) Anxiety (Chronic) Iron deficiency anemia (Chronic) 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 exposed (Chronic) Wound of left breast (Chronic) Open wound of right lower quadrant of abdominal wall without penetration into peritoneal cavity (Chronic) Traumatic hematoma of abdominal wall (Chronic) Traumatic hematoma of female breast (Chronic) Old myocardial infarction (Chronic) Abnormal stress test (Chronic) Type 2 diabetes mellitus (Chronic) Aortocoronary bypass status (Chronic) CABG x2- DENNIS to LAd, SVG to Diagonal of the LAD 10/31/11 Atherosclerotic heart disease of [place] coronary artery without angina pectoris (Chronic) CABG x2- DENNIS to LAD, SVG to Diagonal of the LAD 10/31/11 Hypertension (Chronic) Hyperlipidemia (Chronic) Tobacco use disorder (Chronic) Morbid obesity (Chronic) Hospital Course and Treatment Consultations 08/18/18 18:41 Consult: Onc/Wound/retort fireman Routine Comment: Operations: None, - - 08/03/18 - 1. Surgical preparation left medial breast with incision and drainage and excisional debridement nonhealing necrotizing infected diabetic hematoma ulcer abscess and partial mastectomy (70 cm2). 2. Surgical preparation right lower abdominal wall with incision and drainage and excisional debridement nonhealing necrotizing infected diabetic hematoma ulcer abscess and abdominall panniculectomy (300 cm2). Procedures: None Summary of Care Provided: Hospital Course: The patient is a 62 year old F with past medical history as above, most notable for recent admission within the past month for acute panniculitis and abscess under the left breast with bacteria including Providencia rettgeri, Morganella morganii, staph aureus, Bacteroides fragilis. Last admission she underwent debridement of both of these wounds, wound VAC placement, and subsequently discharged on IV ertapenem. She represented to the emergency room with weakness progressively worsening over the past 3 days, reported intermittent confusion at home. In the emergency room she was found to be septic with leukocytosis, low blood pressure, leukocytosis of 23,000, lactic acidosis. Source was felt to be her prior wounds. She was started on Vanco and meropenem and admitted to the PCU on telemetry. Plastic surgery who operated on her previously was consulted. Upon evaluation of the room both appeared to be worsening-panniculitis and left breast abscess. Further debridement, and total left mastectomy were recommended. The patient underwent tolerated these surgeries well. New wound cultures were taken. Wound cultures demonstrated Pseudomonas aeruginosa Proteus mirabilis, Enterococcus faecalis, Enterococcus avium, Staphylococcus epidermidis. Blood cultures were negative. Infectious disease was consulted. Due to the extensive nature of her wounds and her inability to properly care for herself at home as evidenced by her last admission and discharge home, is felt that she would benefit from placement in long-term facility where she can receive extensive wound care, physical therapy, occupational therapy, and IV antibiotics. She did receive a PICC line and will be discharged on Vanc and Anika for 10 days after discharge. Wound VAC was placed for both wounds. Patient remained stable following surgery. We also noted that she had significant anemia, iron deficiency during her stay here. She was started on iron supplementation. She is also very tearful with depressed affect during her stay. I strongly advised her to follow-up with counseling and psychiatric services. She was unwilling to consider medication changes at this time. She was agreeable to going to skilled nursing and this was arranged for her. She will continue to use oxygen PRN at the skilled nursing. She was smoking up to this admission and we again discussed the need for cessation. She had faint wheezing throughout her stay and was given scheduled duonebs, which she should continue. She likely has underlying lung disease and sleep apnea. A trending overnight pulse ox was completed which showed many desaturation episodes and hypoxia <89% c/w likely underlying sleep apnea. She will need follow up with pulmonary medicine as soon as she is able to make an appointment for formal diagnostic testing including PSG and PFTs. She was discharged to long-term in stable condition. Follow ups include plastic surgery - 1 week, Infectious disease - 2 weeks, PCP -2 weeks, pulmonary medicine 3-4 weeks. This patient was seen by Addi Alejandra PA-C under the supervision of Dr. Daley. [] - Physical Exam General: Alert, Oriented x3, Cooperative HEENT: Atraumatic, PERRLA, EOMI, Normocephalic Neck: Supple, No JVD, Negative Carotid Bruits Lungs: No wheeze, Diminished Cardiovascular: Regular rate, No murmurs Abdomen: Bowel Sounds Present, Soft, Obese, Tender, - - wounds dressed, wound vac in place, draining kirk red. Extremities: No edema, Capillary Refill Less than 3 Seconds Skin: No rashes, No breakdown Musculoskeletal: No Tenderness to Palpation of Joints or Extremities Neurological: Cranial nerves II-XII grossly intact Psych/Mental Status: Normal Affect, Appropriate, Alert and oriented to time, place, person, mood and affect Vital Signs Temp Pulse Resp BP Pulse Ox 97.8 F 73 18 115/51 L 94 08/24/18 14:56 08/24/18 14:56 08/24/18 14:56 08/24/18 14:56 08/24/18 14:56 Oxygen Flow Rate (L/min) 1 Oxygen Delivery Method Room Air Weight: 250 lb 3.206 oz Body Mass Index (BMI) 45.7 Finger Stick Blood Glucose 133 Intake and Output for Last 24 Hours 08/22/18 08/23/18 08/24/18 23:59 23:59 23:59 Intake Total 1819 / 2169 1377 / 2111 1663 / 1663 Balance 1819 / 2169 1377 / 2111 1663 / 1663 Microbiology Past 72 Hours 08/19/18 16:13 Gram Stain - Final Tissue - Breast Wound Culture - Final Proteus mirabilis Anaerobic Culture - Final No anaerobic bacteria isolated. 08/19/18 16:16 Gram Stain - Final Tissue - Breast Wound Culture - Final Pseudomonas aeroginosa Proteus mirabilis#2 Anaerobic Culture - Final No anaerobic bacteria isolated. 08/18/18 16:05 Blood Culture - Final Blood Culture (Wb) - Anticubital Left No growth in 5 days. 08/18/18 15:25 Blood Culture - Final Blood Culture (Wb) - Anticubital Right No growth in 5 days. 08/19/18 09:20 Gram Stain - Final Wound Drainage - Aerobic & Anaerobic Swabs Wound Culture - Final Pseudomonas aeroginosa Enterococcus faecalis Enterococcus avium Staphylococcus epidermidis Anaerobic Culture - Final Anaerobic cocci 08/19/18 09:20 Gram Stain - Final Wound - Breast Wound Culture - Final Pseudomonas aeroginosa Proteus mirabilis Anaerobic Culture - Final No anaerobic bacteria isolated. Laboratory Tests Past 24 Hrs 08/22/18 08/24/18 08/24/18 21:50 04:35 04:35 WBC 16.7 H RBC 3.36 L Hgb 8.9 L Hct 28.5 L MCV 84.8 MCH 26.5 L MCHC 31.2 L RDW 17.2 H RDW Differential 50.8 H Plt Count 434 MPV 9.8 Immature Gran % (Auto) 2.600 H Neut % (Auto) 75.0 H Lymph % (Auto) 12.4 L Boone % (Auto) 6.5 Eos % (Auto) 3.3 Baso % (Auto) 0.2 Absolute Neuts (auto) 12.5 H Absolute Lymphs (auto) 2.06 Total Counted Not Reportable Diff Path Review Reviewed June foll Platelet Estimate SLT INC RBC Morphology NORM C+C Sodium 144 Potassium 3.9 Chloride 108 H Carbon Dioxide 32.0 Anion Gap 4 L BUN 20 H Creatinine 0.54 L Estim Creat Clear Calc 85.43 Est GFR (MDRD) Af Amer 146 Est GFR (MDRD) Non-Af 121 BUN/Creatinine Ratio 36.8 H Glucose 96 Calcium 9.1 Phosphorus Magnesium 2.0 Total Bilirubin 0.20 AST 45 H ALT 31 Alkaline Phosphatase 81 Total Protein 5.4 L Albumin 1.5 L Globulin 3.9 Albumin/Globulin Ratio 0.4 L Triglycerides 106 Cholesterol 75 LDL Cholesterol 29 VLDL Cholesterol 21 HDL Cholesterol 25 L Vancomycin Trough 08/24/18 08/24/18 04:35 09:30 WBC RBC Hgb Hct MCV MCH MCHC RDW RDW Differential Plt Count MPV Immature Gran % (Auto) Neut % (Auto) Lymph % (Auto) Bo[place] % (Auto) Eos % (Auto) Baso % (Auto) Absolute Neuts (auto) Absolute Lymphs (auto) Total Counted Diff Path Review Platelet Estimate RBC Morphology Sodium Potassium Chloride Carbon Dioxide Anion Gap BUN Creatinine Estim Creat Clear Calc Est GFR (MDRD) Af Amer Est GFR (MDRD) Non-Af BUN/Creatinine Ratio Glucose Calcium Phosphorus 2.8 Magnesium Total Bilirubin AST ALT Alkaline Phosphatase Total Protein Albumin Globulin Albumin/Globulin Ratio Triglycerides Cholesterol LDL Cholesterol VLDL Cholesterol HDL Cholesterol Vancomycin Trough 17.9 H Discharge Diet: Low fat/ Low Cholesterol, 1800 Calorie Control Diet, 2000 mg Sodium Diet Discharge Activity: Return to Normal Activity Home Medications: Medications to take at Discharge sertraline 100 mg tablet 100 mg PO DAILY 07/02/17 isosorbide mononitrate ER 30 mg tablet,extended release 24 hr 30 mg PO QAM #30 tab 07/08/17 Bupropion HCl [Bupropion Xl] 300 mg PO DAILY 07/20/18 Clopidogrel Bisulfate [Clopidogrel] 75 mg PO DAILY 08/18/18 Metoprolol Tartrate [Lopressor (beta nayeli)] 25 mg PO BID 08/18/18 Simvastatin 20 mg PO QHS 08/18/18 Meropenem [Merrem] 1 gm IV Q8 10 Days #30 vial 08/23/18 Vancomycin IV [Vancomycin] 1,000 mg IV Q12H 10 Days #20 bag 08/23/18 Acetaminophen [Tylenol Tablet] 650 mg PO Q6H PRN PRN tab 08/24/18 Albuterol Aerosols [Ventolin Aerosols] 2.5 mg INHALATION Q6H PRN PRN vial.neb. 08/24/18 Ascorbic Acid [Vitamin C] 500 mg PO BIDCM tab 08/24/18 Diazepam [Valium] 5 mg PO 4X/DAY 3 Days #12 tab 08/24/18 Docusate Sodium [Colace] 100 mg PO BID cap 08/24/18 HYDROmorphone tablet [Dilaudid] 4 mg PO Q3H PRN PRN 3 Days #24 tab 08/24/18 Iron Polysaccharide Complex [Ferrex 150] 150 mg PO DAILYCM cap 08/24/18 Magnesium Hydroxide [Milk Of Magnesia] 30 ml PO DAILY udc 08/24/18 Nutritional Supplement [Casey - ORANGE FLAVOR] 1 packet PO BIDCM packet 08/24/18 Senna/Docusate Sodium [Senokot-S] 2 tab PO BID PRN PRN tab 08/24/18 proMETHazine tablet [Phenergan tablet] 25 mg PO Q4H PRN PRN tab 08/24/18 Following Prescrptions Were Given to Patient: HYDROmorphone tablet [Dilaudid] 4 mg PO Q3H PRN PRN 3 Days #24 tab PRN Reason: Severe Pain (-11/18) Prescription Printed Meropenem [Merrem] 1 gm IV Q8 10 Days #30 vial Prescription Printed Diazepam [Valium] 5 mg PO 4X/DAY 3 Days #12 tab Prescription Printed Vancomycin IV [Vancomycin] 1,000 mg IV Q12H 10 Days #20 bag Prescription Printed Primary Care Physician: Manuel Mortensen [Primary Care Provider] - Please follow up with your Primary Care Physician in: as directed Please Follow Up With: James Lopez MD When: 1 week Please Follow Up With: Chan Perea MD When: 2 weeks Please Follow Up With: Chino Kenny MD When: 3-4 weeks Disposition: [facility] facility Minutes spent on discharge:: 40 Patient Condition:: Stable Medical Necessity - Tobacco Use Smoking Status: Current every day smoker Tobacco Use: Cigarettes Meaningful Use Info Meaningful Use Diagnoses (Choose all that apply): None applicable
[2018-08-25 13:52] LABS: Pathologist Review Reviewed
== END 2018-08-24 15:23 | disposition skilled nursing facility (03) | DRG 854 ==
LOC: ED 15:49 → PCU 17:58
PROVIDERS: Anesthesiology; Internal Medicine; Physician Assistant; Surgery; Admitting Provider Hospitalist; Emergency Provider Emergency Medicine; Family Provider Family Medicine; Referring Provider Hospitalist; Visit Provider Internal Medicine
PROC: 0HTU0ZZ Resection of Left Breast, Open Approach (ICD-10-PCS; principal; 2018-08-19 14:45)
DX: A41.9 Sepsis, unspecified organism (principal); N17.9 Acute kidney failure, unspecified; L02.211 Cutaneous abscess of abdominal wall; Z68.42 Body mass index [BMI] 45.0-49.9, adult; F13.20 Sedative, hypnotic or anxiolytic dependence, uncomplicated; R65.20 Severe sepsis without septic shock; E87.6 Hypokalemia; E66.01 Morbid (severe) obesity due to excess calories; N61.1 Abscess of the breast and nipple; L83 Acanthosis nigricans; E83.42 Hypomagnesemia; B96.4 Proteus (mirabilis) (morganii) as the cause of diseases classified elsewhere; B95.2 Enterococcus as the cause of diseases classified elsewhere; D50.9 Iron deficiency anemia, unspecified; E11.9 Type 2 diabetes mellitus without complications; F17.210 Nicotine dependence, cigarettes, uncomplicated; B96.5 Pseudomonas (aeruginosa) (mallei) (pseudomallei) as the cause of diseases classified elsewhere; M79.3 Panniculitis, unspecified; B95.7 Other staphylococcus as the cause of diseases classified elsewhere; G47.30 Sleep apnea, unspecified; S20.02XS Contusion of left breast, sequela; S30.1XXS Contusion of abdominal wall, sequela; X58.XXXS Exposure to other specified factors, sequela; F32.9 Major depressive disorder, single episode, unspecified; J44.9 Chronic obstructive pulmonary disease, unspecified; I10 Essential (primary) hypertension; I25.10 Atherosclerotic heart disease of native coronary artery without angina pectoris; E78.5 Hyperlipidemia, unspecified; I25.2 Old myocardial infarction; Z95.1 Presence of aortocoronary bypass graft; Z86.718 Personal history of other venous thrombosis and embolism
CPT/HCPCS: 36415; 36569; 71046; 80048; 80053; 80061; 80202; 81001; 82962; 83540; 83550; 83605; 83735; 84100; 84132; 84134; 84484; 85014; 85018; 85025; 86850; 86900; 86920; 86922; 87015; 87040; 87070; 87075; 87077; 87102; 87106; 87116; 87176; 87184; 87186; 87205; 87206; 87640; 88305; 88307; 93005; 94640; 94762; 97110; 97116; 97162; 97166; 97530; 97535; 97802; 99285; J1756; J2185; J7030; J7040; P9016; A4216; J2405

== ENCOUNTER 2018-10-04 13:00 | Outpatient (RCR) | payer OTHER, SELFPAY ==
[2017-07-08 11:20] VITALS: BMI 52.1
[2018-08-19 12:15] VITALS: BMI 45.7
[2018-09-09 00:55] VITALS: BP 138/77; PULSE 83; RESP 18; TEMP 36.1
[2018-09-13 13:11] VITALS: BP 121/65; PULSE 83; RESP 20; TEMP 36.9; BMI 45.7
--- NOTE | 2018-09-13 14:51 | PCM.WC.PN ---
(1) Ulcer of abdomen wall with fat layer exposed Status: Chronic Code(s): L98.492 - Non-pressure chronic ulcer of skin of other sites with fat layer exposed (2) Wound of left breast Status: Chronic Qualifiers: Code(s): S21.002A - Unspecified open wound of left breast, initial encounter (3) Type 2 diabetes mellitus Status: Chronic Qualifiers: Code(s): E11.9 - Type 2 diabetes mellitus without complications (4) Tobacco use disorder Status: Chronic Code(s): F17.200 - Nicotine dependence, unspecified, uncomplicated (5) Morbid obesity Status: Chronic Code(s): E66.01 - Morbid (severe) obesity due to excess calories Type of Wound Date of Service: 09/13/18 Chief Complaint: Infected diabetic hematoma ulcer abscesses left medial breast and right lower abdominal wall. History of Wound: Keturah is a 62 yo woman who presented to the wound center for evaluation and treatment of nonhealing wounds to her left breast and right lower abdomen. She is referred by Dr. Mortensen, her PCP. She was jumped on by her dog 4-6 weeks ago and developed hematomas of her breasts and abdomen and back. The areas developed into open wounds of her left medial breast and right lower abdomen She is on plavix and aspirin for her CAD. She had been using maxi pads to the areas and antibiotic ointment. She completed doxycycline for treatment for possible infection. She was taken to surgery on 08/03/18 for 1. Surgical preparation left medial breast with incision and drainage and excisional debridement nonhealing necrotizing infected diabetic hematoma ulcer abscess and partial mastectomy (70 cm2). 2. Surgicl preparation right lower abdominal wall with incision and drainage and excisional debridement non healing necrotizing infected diabetic hematoma ulcer abscess and abdominal panniculectomy (300 cm2). On 08/19/18 she was taken back to surgery for 1. Surgical preparation left breast with incision and drainage and excisional debridement nonhealing necrotizing infected diabetic ulcer abscess and comletion mastectomy (270 cm2). 2. Surgical prepation right lower abdominal wall with incision and drainageand exsional debridement nonhealing necrotizing infected diabetic ulcer abscess (616 cm2). Wound care to left breast is Dakin's solution dressing daily and wound VAC to abdominal ulcer. She is being seen by Dr. Sheriff ID. Today she denies any fever or chills. Progress of Wound: Stable - Physical Exam Vital Signs Temp Pulse Resp BP 98.4 F 83 20 H 121/65 H 09/13/18 13:11 09/13/18 13:11 09/13/18 13:11 09/13/18 13:11 General: Alert, Oriented x3, Cooperative HEENT: Atraumatic Oral: Moist Mucosa Lungs: Normal air movement Cardiovascular: Regular rate Extremities: Capillary Refill Less than 3 Seconds Skin: Ulcer/ Wound - Left breast wound and right abdominal ulcer Wound Measurements and Assessment WC - Nurse 1 - General Ulcer Measurement Start: 09/13/18 13:10 Freq: Status: Active Protocol: Activity Type Activity Date Activity User E-Sign Co-Sign Detail Recorded Client Recorded Date Recorded By Document 09/13/18 13:11 DL [id number] 09/13/18 13:45 DL 09/13/18 13:11 Wound Center Nurse 1 [Ulcer Assessment] #6 LOWER ABD POST OP -Current Size (cm) - Length 1.8 -Current Size (cm) - Width 43.5 -Current Size (cm) - Depth 2.5 -Total Square Cm 78.30 -Date of Last Picture (Recall this 09/13/18 field) -Photo Taken Yes -Epithelialization None Present -Tunneling No -Undermining/Tunneling No -Circular Undermining No -Classification - Thickness Full Thickness without Exposed Support Structure -Exudate Amt Large -Exudate Type Serous -Wound Margin Distinct, Outline Attached -Granulation Amt Large (67-100%) -Granulation Quality Red -Necrosis Amt Large (67-100%) -Necrotic Tissue Type Adherent Slough -Structure Exposed None/Limited to Skin Breakdown -Texture (Gabriela-wound Skin Appearance) Assessed -Moisture (Gabriela-wound Skin Appearance Assessed ) -Color (Gabriela-wound Skin Appearance) Assessed -Temperature (Gabriela-wound Skin No Abnormality Appearance) (Pt Warm) -Tenderness on Palpation (Gabriela-wound No Skin Appearance) -Ulcer Cleansing soap -Foul Odor after Cleansing No -Anesthetic Used 4% Lidocaine Solution,5% Lidocaine Gel #5 LEFT BREAST POST OP -Current Size (cm) - Length 2.8 -Current Size (cm) - Width 22.0 -Current Size (cm) - Depth 5.6 -Total Square Cm 61.60 -Date of Last Picture (Recall this 08/05/19 field) -Photo Taken Yes -Epithelialization None Present -Tunneling No -Undermining/Tunneling No -Circular Undermining No -Classification - Thickness Full Thickness without Exposed Support Structure -Exudate Amt Large -Exudate Type Serous -Wound Margin Distinct, Outline Attached -Granulation Amt Medium (34-66%) -Granulation Quality Red -Necrosis Amt Medium (34-66%) -Necrotic Tissue Type Adherent Slough -Structure Exposed Fat Layer Exposed -Texture (Gabriela-wound Skin Appearance) Assessed, Scarring -Moisture (Gabriela-wound Skin Appearance Assessed, ) Weeping -Color (Gabriela-wound Skin Appearance) No Abnormality, Assessed -Temperature (Gabriela-wound Skin No Abnormality Appearance) (Pt Warm) -Ulcer Cleansing soap -Foul Odor after Cleansing No -Anesthetic Used 4% Lidocaine Solution,5% Lidocaine Gel WC - Nurse 2 - General Ulcer CM Notes Start: 09/13/18 13:10 Freq: Status: Active Protocol: Activity Type Activity Date Activity User E-Sign Co-Sign Detail Recorded Client Recorded Date Recorded By Document 09/13/18 14:37 BILLIE [id number] 09/13/18 14:40 BILLIE 09/13/18 14:37 Wound Center Nurse 2 [Procedure/Treatment] #6 LOWER ABD POST OP -Time 14:38 -Correct Patient Yes -Correct Side, Site, Position Yes -Correct Procedure Yes -Procedure Performed Yes -Type of Procedure Debridement -Clinical Debridement Subcutaneous -Post Debridement Size (cm) - Length 2.0 -Post Debridement Size (cm) - Width 45.0 -Post Debridement Size (cm) - Depth 2.5 -Total Square Cm 90.00 -Wound/Ulcer Outcome Not Healed -Ulcer Cleansing Rinsed/ Irrigated with Saline -Foul Odor after Cleansing No -Bioengineered Tissue No -Bleeding Controlled with Pressure -Offloading No -Treatment Response Procedure Tolerated Well #5 LEFT BREAST POST OP -Time 14:39 -Correct Patient Yes -Correct Side, Site, Position Yes -Correct Procedure Yes -Procedure Performed Yes -Type of Procedure Debridement -Clinical Debridement Subcutaneous -Post Debridement Size (cm) - Length 3.0 -Post Debridement Size (cm) - Width 23.4 -Post Debridement Size (cm) - Depth 6.0 -Total Square Cm 70.20 -Wound/Ulcer Outcome Not Healed -Ulcer Cleansing Rinsed/ Irrigated with Saline -Foul Odor after Cleansing No -Bioengineered Tissue No -Bleeding Controlled with Pressure -Offloading No -Treatment Response Procedure Tolerated Well [See Physician Procedure note for Specifics] Pain Scale: 0-10 Numeric [Pain] -Is Patient Pain Free? Yes Musculoskeletal: No Tenderness to Palpation of Joints or Extremities Lymphatic: No Cervical, Supraclavicular, or Inguinal Adenopathy Neurological: Neuro grossly intact Psych/Mental Status: Normal Affect, Appropriate Debridement Note Post-Debridement Measurements/Treatment WC - Nurse 2 - General Ulcer CM Notes Start: 09/13/18 13:10 Freq: Status: Active Protocol: Activity Type Activity Date Activity User E-Sign Co-Sign Detail Recorded Client Recorded Date Recorded By Document 09/13/18 14:37 BILLIE [id number] 09/13/18 14:40 BILLIE 09/13/18 14:37 Wound Center Nurse 2 #6 LOWER ABD POST OP -Time 14:38 -Correct Patient Yes -Correct Side, Site, Position Yes -Correct Procedure Yes -Procedure Performed Yes -Type of Procedure Debridement -Clinical Debridement Subcutaneous -Post Debridement Size (cm) - Length 2.0 -Post Debridement Size (cm) - Width 45.0 -Post Debridement Size (cm) - Depth 2.5 -Total Square Cm 90.00 -Wound/Ulcer Outcome Not Healed -Ulcer Cleansing Rinsed/ Irrigated with Saline -Foul Odor after Cleansing No -Bioengineered Tissue No -Bleeding Controlled with Pressure -Offloading No -Treatment Response Procedure Tolerated Well #5 LEFT BREAST POST OP -Time 14:39 -Correct Patient Yes -Correct Side, Site, Position Yes -Correct Procedure Yes -Procedure Performed Yes -Type of Procedure Debridement -Clinical Debridement Subcutaneous -Post Debridement Size (cm) - Length 3.0 -Post Debridement Size (cm) - Width 23.4 -Post Debridement Size (cm) - Depth 6.0 -Total Square Cm 70.20 -Wound/Ulcer Outcome Not Healed -Ulcer Cleansing Rinsed/ Irrigated with Saline -Foul Odor after Cleansing No -Bioengineered Tissue No -Bleeding Controlled with Pressure -Offloading No -Treatment Response Procedure Tolerated Well Pain Scale: 0-10 Numeric Is Patient Pain Free? Yes Wound debrided: Left breast wound Laterality: Left Type of Debridement: Excisional debridement Anesthesia Used: 4% Lidocaine Solution, 5% Lidocaine Gel Depth: Down to and including healthy tissue, in the subcutaneous layer Percentage of wound debrided: 100 Instrument Used: 7mm curette Tissue Removed: Subcutaneous tissue and slough Severity: Fat Layer Exposed Amount of bleeding with debridement: Mild Bleeding Controlled with: Compression and gauze Patient tolerated procedure well - Additional Wound Wound debrided: Right abdominal ulcer Laterality: Right Type of Debridement: Excisional debridement Anesthesia Used: 4% Lidocaine Solution, 5% Lidocaine Gel Depth: Down to and including healthy tissue, in the subcutaneous layer Percentage of wound debrided: 100 Instrument Used: 7mm curette Tissue Removed: Subcutaneous tissue and slough Severity: Fat Layer Exposed Amount of bleeding with debridement: Mild Bleeding Controlled with: Pressure, Compression and gauze Patient tolerated procedure: Patient tolerated procedure well Assessment/Plan Assessment: 1. 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 2. Nonhealing necrotizing infected diabetic hematoma ulcer abscess right lower abdominal wall. 3. Hematoma left medial breast, sequela. 4. Hematoma right lower abdominal wall, sequela. 5. Diabetes mellitus. 6. Smoker. Plan: Keturah is a 62 yo woman who presented to the wound center for evaluation and treatment of nonhealing wounds to her left breast and right lower abdomen. She is referred by Dr. Mortensen, her PCP. She was jumped on by her dog 4-6 weeks ago and developed hematomas of her breasts and abdomen and back. The areas developed into open wounds of her left medial breast and right lower abdomen She is on plavix and aspirin for her CAD. She had been using maxi pads to the areas and antibiotic ointment. She completed doxycycline for treatment for possible infection. She was taken to surgery on 08/03/18 for 1. Surgical preparation left medial breast with incision and drainage and excisional debridement nonhealing necrotizing infected diabetic hematoma ulcer abscess and partial mastectomy (70 cm2). 2. Surgicl preparation right lower abdominal wall with incision and drainage and excisional debridement non healing necrotizing infected diabetic hematoma ulcer abscess and abdominal panniculectomy (300 cm2). On 08/19/18 she was taken back to surgery for 1. Surgical preparation left breast with incision and drainage and excisional debridement nonhealing necrotizing infected diabetic ulcer abscess and comletion mastectomy (270 cm2). 2. Surgical prepation right lower abdominal wall with incision and drainageand exsional debridement nonhealing necrotizing infected diabetic ulcer abscess (616 cm2). Wound care to left breast is Dakin's solution dressing daily and wound VAC to abdominal ulcer. She is being seen by Dr. Sheriff ID today. Follow up one week. Code Visit [id number]
--- NOTE | 2018-09-13 15:25 | PCM.PN.ID ---
Subjective: Feeling better, pain much improved, no fever. Wound vac is off L breast, just on abd now. - Physical Exam General: Alert, Cooperative, No apparent distress Lungs: Clear to auscultation, Normal air movement Cardiovascular: Regular rate, Regular Rhythm Abdomen: Soft, Non Tender, Non-Distended Skin: Ulcer/ Wound - L breast and RLQ wounds appear clean, healing Vital Signs Temp Pulse Resp BP 98.4 F 83 20 H 121/65 H 09/13/18 13:11 09/13/18 13:11 09/13/18 13:11 09/13/18 13:11 Weight: 119.748 kg Body Mass Index (BMI) 45.7 Finger Stick Blood Glucose 133 Medical Necessity - Tobacco Use Smoking Status: Current every day smoker Tobacco Use: Cigarettes Route of nutrition/ use of supplements: [] Nutritional Intake: [] IV Site: [] Griffith Catheter: [] - Assessment/Plan Antibiotics: [] Assessment/Plan: [] L breast and RLQ necrotic abscess - much improved, stable off of abx. No fever, no sign of recurrent infection. ID followup as needed, d/w nursing.
[2018-09-27 11:17] VITALS: BP 124/75; PULSE 105; RESP 18; TEMP 35.9; BMI 45.7
--- NOTE | 2018-09-27 22:38 | PCM.WC.PN ---
Type of Wound Date of Service: 09/27/18 Chief Complaint: Nonhealing infected diabetic hematoma ulcer abscesses left medial breast and right lower abdominal wall. History of Wound: Surgery 08/19/18 - 1. Surgical preparation left breast with incision and drainage and excisional debridement nonhealing necrotizing infected diabetic ulcer abscess and completion mastectomy (270 cm2). 2. Surgical preparation right lower abdominal wall with incision and drainage and excisional debridement nonhealing necrotizing infected diabetic ulcer abscess (616 cm2). Her original surgery was on 08/03/18 - 1. Surgical preparation left medial breast with incision and drainage and excisional debridement nonhealing necrotizing infected diabetic hematoma ulcer abscess and partial mastectomy (70 cm2). 2. Surgical preparation right lower abdominal wall with incision and drainage and excisional debridement nonhealing necrotizing infected diabetic hematoma ulcer abscess and abdominal panniculectomy (300 cm2). She was discharged on Ertapenem and her left breast worsened with necrotizing infection which prompted further surgery on 08/19/18. Wound care - VAC for right lower abdominal wall and Dakin's for the left breast. Operative culture - In the right lower abdominal wall - Pseudomonoas aeroginosa, Proteus mirabilis, Enterococcus faecalis, Enterococcus avium, MRSE, and Anaerobic cocci. In the left breast - Pseudomonas aeroginosa, Proteus mirabilis, and Melissa parapsilosis. She was treated with Vancomycin and Meropenem IV and has completed them. Will start her on Diflucan for 2 weeks. Prealbumin from 08/20/18 was 6.9. Encouraged nutritional supplementation with protein to help the healing process. HgbA1c from 08/02/18 was 6.0. Patient feels better as she is at home and tolerating the Dakin's dressing change to the left breast. Home Health is doing the VAC changes to the right lower abdominal wall. Today she denies fever. Her appetite is ok. Progress of Wound: Improved. - Physical Exam Vital Signs Temp Pulse Resp BP 96.6 F L 105 H 18 124/75 H 09/27/18 11:17 09/27/18 11:17 09/27/18 11:17 09/27/18 11:17 Wound Measurements and Assessment WC - Nurse 1 - General Ulcer Measurement Start: 09/13/18 13:10 Freq: Status: Active Protocol: Activity Type Activity Date Activity User E-Sign Co-Sign Detail Recorded Client Recorded Date Recorded By Document 09/27/18 11:17 MW [id number] 09/27/18 11:41 MW 09/27/18 11:17 Wound Center Nurse 1 [Ulcer Assessment] #6 LOWER ABD POST OP -Combined with other wound No -Current Size (cm) - Length 1.6 -Current Size (cm) - Width 39.0 -Current Size (cm) - Depth 3.0 -Total Square Cm 62.40 -Photo Taken No -Epithelialization Small 1-33% -Tunneling No -Undermining/Tunneling No -Circular Undermining No -Exudate Amt Medium -Exudate Type Serosanguineous -Wound Margin Flat & Intact -Granulation Amt Large (67-100%) -Granulation Quality Pale,[place] -Necrosis Amt Small (1-33%) -Necrotic Tissue Type Adherent Slough -Texture (Gabriela-wound Skin Appearance) Assessed -Moisture (Gabriela-wound Skin Appearance Assessed, ) Maceration -Color (Gabriela-wound Skin Appearance) Assessed -Temperature (Gabriela-wound Skin No Abnormality Appearance) (Pt Warm) -Tenderness on Palpation (Gabriela-wound Yes Skin Appearance) -Ulcer Cleansing Wound Cleanser -Foul Odor after Cleansing Yes -Anesthetic Used 4% Lidocaine Solution #5 LEFT BREAST POST OP -Combined with other wound No -Current Size (cm) - Length 2.0 -Current Size (cm) - Width 20 -Current Size (cm) - Depth 3.6 -Total Square Cm 40.0 -Photo Taken No -Epithelialization Small 1-33% -Tunneling No -Undermining/Tunneling No -Circular Undermining No -Exudate Amt Small -Exudate Type Serosanguineous -Wound Margin Thickened & Rolled Under -Granulation Amt Large (67-100%) -Granulation Quality Pale,[place] -Necrosis Amt Small (1-33%) -Necrotic Tissue Type Adherent Slough -Texture (Gabriela-wound Skin Appearance) Assessed -Moisture (Gabriela-wound Skin Appearance Assessed, ) Maceration -Color (Gabriela-wound Skin Appearance) Assessed -Temperature (Gabriela-wound Skin No Abnormality Appearance) (Pt Warm) -Tenderness on Palpation (Gabriela-wound Yes Skin Appearance) -Ulcer Cleansing Wound Cleanser -Foul Odor after Cleansing Yes -Anesthetic Used 4% Lidocaine Solution [Edema Assessment] -Lower Limb Edema Present NA WC - Nurse 2 - General Ulcer CM Notes Start: 09/13/18 13:10 Freq: Status: Active Protocol: Activity Type Activity Date Activity User E-Sign Co-Sign Detail Recorded Client Recorded Date Recorded By Document 09/27/18 12:03 [id number] 09/27/18 12:04 09/27/18 12:03 Wound Center Nurse 2 [Procedure/Treatment] #6 LOWER ABD POST OP -Time 12:03 -Correct Patient Yes -Correct Side, Site, Position Yes -Correct Procedure Yes -Procedure Performed Yes -Type of Procedure Debridement -Clinical Debridement Subcutaneous -Post Debridement Size (cm) - Length 40 -Post Debridement Size (cm) - Width 1 -Post Debridement Size (cm) - Depth 2.7 -Total Square Cm 40 -Wound/Ulcer Outcome Not Healed -Ulcer Cleansing Rinsed/ Irrigated with Saline -Foul Odor after Cleansing No -Bioengineered Tissue No -Bleeding Controlled with Pressure -Offloading No -Treatment Response Procedure Tolerated Well #5 LEFT BREAST POST OP -Time 12:04 -Correct Patient Yes -Correct Side, Site, Position Yes -Correct Procedure Yes -Procedure Performed Yes -Type of Procedure Debridement -Clinical Debridement Subcutaneous -Post Debridement Size (cm) - Length 20.3 -Post Debridement Size (cm) - Width 2 -Post Debridement Size (cm) - Depth 3.5 -Total Square Cm 40.6 -Wound/Ulcer Outcome Not Healed -Ulcer Cleansing Rinsed/ Irrigated with Saline -Foul Odor after Cleansing No -Bioengineered Tissue No -Bleeding Controlled with Pressure -Offloading No -Treatment Response Procedure Tolerated Well [See Physician Procedure note for Specifics] Pain Scale: 0-10 Numeric [Pain] -Is Patient Pain Free? Yes Debridement Note Post-Debridement Measurements/Treatment - Nurse 2 - General Ulcer CM Notes Start: 09/13/18 13:10 Freq: Status: Active Protocol: Activity Type Activity Date Activity User E-Sign Co-Sign Detail Recorded Client Recorded Date Recorded By Document 09/13/18 14:37 [id number] 09/13/18 14:40 Document 09/27/18 12:03 [id number] 09/27/18 12:04 09/13/18 09/27/18 14:37 12:03 Wound Center Nurse 2 #6 LOWER ABD POST OP -Time 14:38 12:03 -Correct Patient Yes Yes -Correct Side, Site, Position Yes Yes -Correct Procedure Yes Yes -Procedure Performed Yes Yes -Type of Procedure Debridement Debridement -Clinical Debridement Subcutaneous Subcutaneous -Post Debridement Size (cm) - Length 2.0 40 -Post Debridement Size (cm) - Width 45.0 1 -Post Debridement Size (cm) - Depth 2.5 2.7 -Total Square Cm 90.00 40 -Wound/Ulcer Outcome Not Healed Not Healed -Ulcer Cleansing Rinsed/ Rinsed/ Irrigated with Irrigated with Saline Saline -Foul Odor after Cleansing No No -Bioengineered Tissue No No -Bleeding Controlled with Pressure Pressure -Offloading No No -Treatment Response Procedure Procedure Tolerated Well Tolerated Well #5 LEFT BREAST POST OP -Time 14:39 12:04 -Correct Patient Yes Yes -Correct Side, Site, Position Yes Yes -Correct Procedure Yes Yes -Procedure Performed Yes Yes -Type of Procedure Debridement Debridement -Clinical Debridement Subcutaneous Subcutaneous -Post Debridement Size (cm) - Length 3.0 20.3 -Post Debridement Size (cm) - Width 23.4 2 -Post Debridement Size (cm) - Depth 6.0 3.5 -Total Square Cm 70.20 40.6 -Wound/Ulcer Outcome Not Healed Not Healed -Ulcer Cleansing Rinsed/ Rinsed/ Irrigated with Irrigated with Saline Saline -Foul Odor after Cleansing No No -Bioengineered Tissue No No -Bleeding Controlled with Pressure Pressure -Offloading No No -Treatment Response Procedure Procedure Tolerated Well Tolerated Well Pain Scale: 0-10 Numeric Is Patient Pain Free? Yes Yes Wound debrided: #5 Left breast. Laterality: Left Wound Grade/Stage: 2. Type of Debridement: Excisional debridement Anesthesia Used: 4% Lidocaine Solution Depth: Down to and including healthy tissue, in the subcutaneous layer Percentage of wound debrided: 100 Instrument Used: 7mm curette Tissue Removed: subcutaneous tissue. Severity: Fat Layer Exposed Amount of bleeding with debridement: Mild Bleeding Controlled with: Pressure Patient tolerated procedure well - Additional Wound Wound debrided: #6 Right lower abdominal wall. Laterality: Right Wound Grade/Stage: 2. Type of Debridement: Excisional debridement Anesthesia Used: 4% Lidocaine Solution Depth: Down to and including healthy tissue, in the subcutaneous layer Percentage of wound debrided: 100 Instrument Used: 7mm curette Tissue Removed: subcutaneous tissue. Severity: Fat Layer Exposed Amount of bleeding with debridement: Mild Bleeding Controlled with: Pressure Patient tolerated procedure: Patient tolerated procedure well Assessment/Plan Assessment: 1. 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 2. Nonhealing necrotizing infected diabetic ulcer abscess right lower abdominal wall. 3. Hematoma left medial breast, sequela. 4. Hematoma right lower abdominal wall, sequela. 5. Diabetes mellitus. 6. Smoker. 7. s/p surgical preparation left breast with incision and drainage and excisional debridement nonhealing necrotizing infected diabetic ulcer abscess and completion mastectomy (270 cm2) and surgical preparation right lower abdominal wall with incision and drainage and excisional debridement nonhealing necrotizing infected diabetic ulcer abscess (616 cm2). Plan: The ulcers are improving. Continue the Dakin's to the left breast. Will stop the VAC to the right lower abdominal wall and start Dakin's there as well. She is currently off her antibiotics as she has completed Vancomycin and Meropenem for Pseudomonas aeroginosa, Proteus mirabilis, Enterococcus faecalis, Enterococcus avium, MRSE, and Anaerobic cocci. She also has Melissa parapsilosis and will start Diflucan for 2 weeks. Her Prealbumin from 08/20/18 was 6.9. Encourage nutritional supplementation with protein to help the healing process. Her HgbA1c from 08/02/18 was 6.0. Followup one week.
[2018-10-04 13:06] VITALS: BP 116/69; PULSE 92; RESP 16; TEMP 35.6; BMI 45.7
--- NOTE | 2018-10-04 17:14 | PCM.WC.PN ---
(1) Ulcer of abdomen wall with fat layer exposed Status: Chronic Code(s): L98.492 - Non-pressure chronic ulcer of skin of other sites with fat layer exposed (2) Wound of left breast Status: Chronic Qualifiers: Code(s): S21.002A - Unspecified open wound of left breast, initial encounter (3) Type 2 diabetes mellitus Status: Chronic Qualifiers: Code(s): E11.9 - Type 2 diabetes mellitus without complications (4) Tobacco use disorder Status: Chronic Code(s): F17.200 - Nicotine dependence, unspecified, uncomplicated (5) Morbid obesity Status: Chronic Code(s): E66.01 - Morbid (severe) obesity due to excess calories Type of Wound Date of Service: 10/04/18 Chief Complaint: Nonhealing infected diabetic hematoma ulcer abscesses left medial breast and right lower abdominal wall. History of Wound: Surgery 08/19/18 - 1. Surgical preparation left breast with incision and drainage and excisional debridement nonhealing necrotizing infected diabetic ulcer abscess and completion mastectomy (270 cm2). 2. Surgical preparation right lower abdominal wall with incision and drainage and excisional debridement nonhealing necrotizing infected diabetic ulcer abscess (616 cm2). Her original surgery was on 08/03/18 - 1. Surgical preparation left medial breast with incision and drainage and excisional debridement nonhealing necrotizing infected diabetic hematoma ulcer abscess and partial mastectomy (70 cm2). 2. Surgical preparation right lower abdominal wall with incision and drainage and excisional debridement nonhealing necrotizing infected diabetic hematoma ulcer abscess and abdominal panniculectomy (300 cm2). She was discharged on Ertapenem and her left breast worsened with necrotizing infection which prompted further surgery on 08/19/18. Wound care - Dakin's to both the abdomial ulcer and the left breast. Operative culture - In the right lower abdominal wall - Pseudomonoas aeroginosa, Proteus mirabilis, Enterococcus faecalis, Enterococcus avium, MRSE, and Anaerobic cocci. In the left breast - Pseudomonas aeroginosa, Proteus mirabilis, and Melissa parapsilosis. She was treated with Vancomycin and Meropenem IV and has completed them. Will start her on Diflucan for 2 weeks for postive fungal cultures of Melissa parapsilosis. Prealbumin from 08/20/18 was 6.9. Encouraged nutritional supplementation with protein to help the healing process. HgbA1c from 08/02/18 was 6.0. Patient feels better as she is at home and tolerating the Dakin's dressing changes. Today she denies fever. Her appetite is ok. Progress of Wound: Improved. - Physical Exam Vital Signs Temp Pulse Resp BP 96.0 F L 92 16 116/69 10/04/18 13:06 10/04/18 13:06 10/04/18 13:06 10/04/18 13:06 General: Alert, Oriented x3, Cooperative HEENT: Atraumatic Oral: Moist Mucosa Lungs: Normal air movement Cardiovascular: Regular rate Extremities: Capillary Refill Less than 3 Seconds Skin: Ulcer/ Wound - Left breast ulcer and lower abdominal ulcer Wound Measurements and Assessment WC - Nurse 1 - General Ulcer Measurement Start: 09/13/18 13:10 Freq: Status: Active Protocol: Activity Type Activity Date Activity User E-Sign Co-Sign Detail Recorded Client Recorded Date Recorded By Document 10/04/18 13:06 BS [id number] 10/04/18 13:28 BS 10/04/18 13:06 Wound Center Nurse 1 [Ulcer Assessment] #6 LOWER ABD POST OP -Current Size (cm) - Length 1 -Current Size (cm) - Width 40 -Current Size (cm) - Depth 1.3 -Total Square Cm 40 -Granulation Quality [place],Red -Texture (Gabriela-wound Skin Appearance) Scarring -Color (Gabriela-wound Skin Appearance) Assessed -Temperature (Gabriela-wound Skin No Abnormality Appearance) (Pt Warm) -Tenderness on Palpation (Gabriela-wound Yes Skin Appearance) -Foul Odor after Cleansing Yes -Anesthetic Used 5% Lidocaine Gel #5 LEFT BREAST POST OP -Combined with other wound No -Current Size (cm) - Length 19 -Current Size (cm) - Width 1 -Current Size (cm) - Depth 3 -Total Square Cm 19 -Photo Taken No -Granulation Quality [place],Red -Texture (Gabriela-wound Skin Appearance) Assessed, Scarring -Temperature (Gabriela-wound Skin No Abnormality Appearance) (Pt Warm) -Tenderness on Palpation (Gabriela-wound Yes Skin Appearance) -Foul Odor after Cleansing Yes -Anesthetic Used 5% Lidocaine Gel WC - Nurse 2 - General Ulcer CM Notes Start: 09/13/18 13:10 Freq: Status: Active Protocol: Activity Type Activity Date Activity User E-Sign Co-Sign Detail Recorded Client Recorded Date Recorded By Document 10/04/18 13:45 [id number] 10/04/18 13:54 10/04/18 13:45 Wound Center Nurse 2 [Procedure/Treatment] #6 LOWER ABD POST OP -Time 13:46 -Correct Patient Yes -Correct Side, Site, Position Yes -Correct Procedure Yes -Procedure Performed Yes -Type of Procedure Debridement -Clinical Debridement Subcutaneous -Post Debridement Size (cm) - Length 39.0 -Post Debridement Size (cm) - Width 1.8 -Post Debridement Size (cm) - Depth 2.5 -Total Square Cm 70.20 -Wound/Ulcer Outcome Not Healed -Ulcer Cleansing Rinsed/ Irrigated with Saline -Foul Odor after Cleansing No -Bioengineered Tissue No -Bleeding Controlled with Pressure -Offloading No -Treatment Response Procedure Tolerated Well #5 LEFT BREAST POST OP -Time 13:47 -Correct Patient Yes -Correct Side, Site, Position Yes -Correct Procedure Yes -Procedure Performed Yes -Type of Procedure Debridement -Clinical Debridement Subcutaneous -Post Debridement Size (cm) - Length 18.0 -Post Debridement Size (cm) - Width 1.0 -Post Debridement Size (cm) - Depth 2.0 -Total Square Cm 18.00 -Wound/Ulcer Outcome Not Healed -Ulcer Cleansing Rinsed/ Irrigated with Saline -Foul Odor after Cleansing No -Bioengineered Tissue No -Bleeding Controlled with Pressure -Offloading No -Treatment Response Procedure Tolerated Well [See Physician Procedure note for Specifics] Pain Scale: 0-10 Numeric [Pain] -Is Patient Pain Free? Yes Musculoskeletal: No Tenderness to Palpation of Joints or Extremities Neurological: Neuro grossly intact Psych/Mental Status: Normal Affect, Appropriate Debridement Note Post-Debridement Measurements/Treatment WC - Nurse 2 - General Ulcer CM Notes Start: 09/13/18 13:10 Freq: Status: Active Protocol: Activity Type Activity Date Activity User E-Sign Co-Sign Detail Recorded Client Recorded Date Recorded By Document 09/13/18 14:37 [id number] 09/13/18 14:40 Document 09/27/18 12:03 [id number] 09/27/18 12:04 Document 10/04/18 13:45 [id number] 10/04/18 13:54 09/13/18 09/27/18 10/04/18 14:37 12:03 13:45 Wound Center Nurse 2 #6 LOWER ABD POST OP -Time 14:38 12:03 13:46 -Correct Patient Yes Yes Yes -Correct Side, Site, Position Yes Yes Yes -Correct Procedure Yes Yes Yes -Procedure Performed Yes Yes Yes -Type of Procedure Debridement Debridement Debridement -Clinical Debridement Subcutaneous Subcutaneous Subcutaneous -Post Debridement Size (cm) - Length 2.0 40 39.0 -Post Debridement Size (cm) - Width 45.0 1 1.8 -Post Debridement Size (cm) - Depth 2.5 2.7 2.5 -Total Square Cm 90.00 40 70.20 -Wound/Ulcer Outcome Not Healed Not Healed Not Healed -Ulcer Cleansing Rinsed/ Rinsed/ Rinsed/ Irrigated with Irrigated with Irrigated with Saline Saline Saline -Foul Odor after Cleansing No No No -Bioengineered Tissue No No No -Bleeding Controlled with Pressure Pressure Pressure -Offloading No No No -Treatment Response Procedure Procedure Procedure Tolerated Well Tolerated Well Tolerated Well #5 LEFT BREAST POST OP -Time 14:39 12:04 13:47 -Correct Patient Yes Yes Yes -Correct Side, Site, Position Yes Yes Yes -Correct Procedure Yes Yes Yes -Procedure Performed Yes Yes Yes -Type of Procedure Debridement Debridement Debridement -Clinical Debridement Subcutaneous Subcutaneous Subcutaneous -Post Debridement Size (cm) - Length 3.0 20.3 18.0 -Post Debridement Size (cm) - Width 23.4 2 1.0 -Post Debridement Size (cm) - Depth 6.0 3.5 2.0 -Total Square Cm 70.20 40.6 18.00 -Wound/Ulcer Outcome Not Healed Not Healed Not Healed -Ulcer Cleansing Rinsed/ Rinsed/ Rinsed/ Irrigated with Irrigated with Irrigated with Saline Saline Saline -Foul Odor after Cleansing No No No -Bioengineered Tissue No No No -Bleeding Controlled with Pressure Pressure Pressure -Offloading No No No -Treatment Response Procedure Procedure Procedure Tolerated Well Tolerated Well Tolerated Well Pain Scale: 0-10 Numeric Is Patient Pain Free? Yes Yes Yes Wound debrided: Left breast Type of Debridement: Excisional debridement Anesthesia Used: 4% Lidocaine Solution, 5% Lidocaine Gel Depth: Down to and including healthy tissue, in the subcutaneous layer Percentage of wound debrided: 100 Instrument Used: 7mm curette Tissue Removed: Subcutaneous tissue and slough Severity: Fat Layer Exposed Amount of bleeding with debridement: Mild Bleeding Controlled with: Pressure, Compression and gauze Patient tolerated procedure well - Additional Wound Wound debrided: Lower abdominal ulcer Type of Debridement: Excisional debridement Anesthesia Used: 4% Lidocaine Solution, 5% Lidocaine Gel Depth: Down to and including healthy tissue, in the subcutaneous layer Percentage of wound debrided: 100 Instrument Used: 7mm curette Tissue Removed: Subcutaneous tissue and slough Severity: Fat Layer Exposed Amount of bleeding with debridement: Mild Bleeding Controlled with: Pressure, Compression and gauze Patient tolerated procedure: Patient tolerated procedure well Assessment/Plan Assessment: 1. 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 2. Nonhealing necrotizing infected diabetic ulcer abscess right lower abdominal wall. 3. Hematoma left medial breast, sequela. 4. Hematoma right lower abdominal wall, sequela. 5. Diabetes mellitus. 6. Smoker. 7. s/p surgical preparation left breast with incision and drainage and excisional debridement nonhealing necrotizing infected diabetic ulcer abscess and completion mastectomy (270 cm2) and surgical preparation right lower abdominal wall with incision and drainage and excisional debridement nonhealing necrotizing infected diabetic ulcer abscess (616 cm2). Plan: The ulcers are improving. Continue the Dakin's to the left breast lower abdominal ulcer. She is currently off her antibiotics as she has completed Vancomycin and Meropenem for Pseudomonas aeroginosa, Proteus mirabilis, Enterococcus faecalis, Enterococcus avium, MRSE, and Anaerobic cocci. She also has Melissa parapsilosis and will start Diflucan for 2 weeks. Her Prealbumin from 08/20/18 was 6.9. Encourage nutritional supplementation with protein to help the healing process. Her HgbA1c from 08/02/18 was 6.0. Fungal cultures came back from surgery and are positive for Melissa parapsilosis, will start her on Diflucan for two weeks. She is having increased left breast pain. Will renew her Percocet (#28). Followup tw weeks due to the holiday next week. Code Visit [id number]
== END 2018-10-09 23:59 ==
LOC: WC 13:00
PROVIDERS: Family Provider Family Medicine; Visit Provider Family Medicine
DX: E11.622 Type 2 diabetes mellitus with other skin ulcer (principal); N61.1 Abscess of the breast and nipple; L98.492 Non-pressure chronic ulcer of skin of other sites with fat layer exposed; Z72.0 Tobacco use; E66.01 Morbid (severe) obesity due to excess calories; I25.10 Atherosclerotic heart disease of native coronary artery without angina pectoris; Z79.899 Other long term (current) drug therapy; Z79.02 Long term (current) use of antithrombotics/antiplatelets; Z79.82 Long term (current) use of aspirin; S20.02XS Contusion of left breast, sequela; W54.1XXS Struck by dog, sequela; S30.1XXS Contusion of abdominal wall, sequela
CPT/HCPCS: 11042; 11045; 97606

== ENCOUNTER 2018-11-01 10:30 | Outpatient (RCR) | payer OTHER, SELFPAY ==
[2017-07-08 11:20] VITALS: BMI 52.1
[2018-10-10 00:46] VITALS: BP 116/69; PULSE 92; RESP 16; TEMP 35.6
[2018-10-18 13:30] VITALS: BP 129/79; PULSE 111; RESP 22; TEMP 35.9; BMI 45.7
--- NOTE | 2018-10-18 22:43 | PN.PCM_ITS ---
Type of Wound Date of Service: 10/18/18 Chief Complaint: Nonhealing infected diabetic hematoma ulcer abscesses left medial breast and right lower abdominal wall. History of Wound: Surgery 08/19/18 - 1. Surgical preparation left breast with incision and drainage and excisional debridement nonhealing necrotizing infected diabetic ulcer abscess and completion mastectomy (270 cm2). 2. Surgical preparation right lower abdominal wall with incision and drainage and excisional debridement nonhealing necrotizing infected diabetic ulcer abscess (616 cm2). Her original surgery was on 08/03/18 - 1. Surgical preparation left medial breast with incision and drainage and excisional debridement nonhealing necrotizing infected diabetic hematoma ulcer abscess and partial mastectomy (70 cm2). 2. Surgical preparation right lower abdominal wall with incision and drainage and excisional debridement nonhealing necrotizing infected diabetic hematoma ulcer abscess and abdominal panniculectomy (300 cm2). She was discharged on Ertapenem and her left breast worsened with necrotizing infection which prompted further surgery on 08/19/18. Wound care - Dakin's. Operative culture - In the right lower abdominal wall - Pseudomonoas aeroginosa, Proteus mirabilis, Enterococcus faecalis, Enterococcus avium, MRSE, and Anaerobic cocci. In the left breast - Pseudomonas aeroginosa, Proteus mirabilis, and Melissa parapsilosis. She was treated with Vancomycin and Meropenem IV and has completed them. She was started on Diflucan. Prealbumin from 08/20/18 was 6.9. Encouraged nutritional supplementation with protein to help the healing process. HgbA1c from 08/02/18 was 6.0. Patient feels better as she is at home and tolerating the Dakin's dressing changes. Today she denies fever. Her appetite is ok. Progress of Wound: Improved. - Physical Exam Vital Signs Temp Pulse Resp BP 96.7 F L 111 H 22 H 129/79 H 10/18/18 13:30 10/18/18 13:30 10/18/18 13:30 10/18/18 13:30 Wound Measurements and Assessment WC - Nurse 1 - General Ulcer Measurement Start: 10/18/18 13:30 Freq: Status: Active Protocol: Activity Type Activity Date Activity User E-Sign Co-Sign Detail Recorded Client Recorded Date Recorded By Document 10/18/18 13:30 DL [id number] 10/18/18 13:45 DL 10/18/18 13:30 Wound Center Nurse 1 [Ulcer Assessment] #6 LOWER ABD POST OP -Current Size (cm) - Length 38.5 -Current Size (cm) - Width 0.7 -Current Size (cm) - Depth 1.1 -Total Square Cm 26.95 -Photo Taken No -Exudate Amt Small -Exudate Type Serosanguineous -Wound Margin Distinct, Outline Attached -Granulation Amt Medium (34-66%) -Granulation Quality [place] -Necrosis Amt Medium (34-66%) -Necrotic Tissue Type Adherent Slough -Structure Exposed N/A -Texture (Gabriela-wound Skin Appearance) Scarring -Moisture (Gabriela-wound Skin Appearance No Abnormality ) -Color (Gabriela-wound Skin Appearance) Rubor -Temperature (Gabriela-wound Skin No Abnormality Appearance) (Pt Warm) -Ulcer Cleansing Wound Cleanser -Foul Odor after Cleansing No -Anesthetic Used 5% Lidocaine Gel #5 LEFT BREAST POST OP -Current Size (cm) - Length 12 -Current Size (cm) - Width 1.1 -Current Size (cm) - Depth 0.9 -Total Square Cm 13.2 -Photo Taken No -Exudate Amt Medium -Exudate Type Serosanguineous -Wound Margin Distinct, Outline Attached -Granulation Amt Medium (34-66%) -Granulation Quality [place],Red -Necrosis Amt Medium (34-66%) -Necrotic Tissue Type Adherent Slough -Structure Exposed N/A -Texture (Gabriela-wound Skin Appearance) Scarring -Moisture (Gabriela-wound Skin Appearance No Abnormality ) -Color (Gabriela-wound Skin Appearance) No Abnormality, Rubor -Temperature (Gabriela-wound Skin No Abnormality Appearance) (Pt Warm) -Tenderness on Palpation (Gabriela-wound No Skin Appearance) -Ulcer Cleansing Wound Cleanser -Foul Odor after Cleansing No -Anesthetic Used 5% Lidocaine Gel WC - Nurse 2 - General Ulcer CM Notes Start: 10/18/18 13:30 Freq: Status: Active Protocol: Activity Type Activity Date Activity User E-Sign Co-Sign Detail Recorded Client Recorded Date Recorded By Document 10/18/18 14:00 BILLIE [id number] 10/18/18 14:08 BILLIE 10/18/18 14:00 Wound Center Nurse 2 [Procedure/Treatment] #6 LOWER ABD POST OP -Time 14:01 -Correct Patient Yes -Correct Side, Site, Position Yes -Correct Procedure Yes -Procedure Performed Yes -Type of Procedure Debridement -Clinical Debridement Subcutaneous -Post Debridement Size (cm) - Length 1.5 -Post Debridement Size (cm) - Width 43.5 -Post Debridement Size (cm) - Depth 3.0 -Total Square Cm 65.25 -Wound/Ulcer Outcome Not Healed -Ulcer Cleansing Rinsed/ Irrigated with Saline -Foul Odor after Cleansing No -Bioengineered Tissue No -Bleeding Controlled with Pressure -Other tunnel right side 3.0 mid tunnel 2.5cm -Offloading No -Treatment Response Procedure Tolerated Well #5 LEFT BREAST POST OP -Time 14:01 -Correct Patient Yes -Correct Side, Site, Position Yes -Correct Procedure Yes -Procedure Performed Yes -Type of Procedure Debridement -Clinical Debridement Subcutaneous -Post Debridement Size (cm) - Length 1.0 -Post Debridement Size (cm) - Width 17.5 -Post Debridement Size (cm) - Depth 2.2 -Total Square Cm 17.50 -Wound/Ulcer Outcome Not Healed -Ulcer Cleansing Rinsed/ Irrigated with Saline -Foul Odor after Cleansing No -Bioengineered Tissue No -Bleeding Controlled with Pressure -Offloading No -Treatment Response Procedure Tolerated Well [See Physician Procedure note for Specifics] Pain Scale: 0-10 Numeric [Pain] -Is Patient Pain Free? Yes Debridement Note Post-Debridement Measurements/Treatment WC - Nurse 2 - General Ulcer CM Notes Start: 10/18/18 13:30 Freq: Status: Active Protocol: Activity Type Activity Date Activity User E-Sign Co-Sign Detail Recorded Client Recorded Date Recorded By Document 10/18/18 14:00 [id number] 10/18/18 14:08 BILLIE 10/18/18 14:00 Wound Center Nurse 2 #6 LOWER ABD POST OP -Time 14:01 -Correct Patient Yes -Correct Side, Site, Position Yes -Correct Procedure Yes -Procedure Performed Yes -Type of Procedure Debridement -Clinical Debridement Subcutaneous -Post Debridement Size (cm) - Length 1.5 -Post Debridement Size (cm) - Width 43.5 -Post Debridement Size (cm) - Depth 3.0 -Total Square Cm 65.25 -Wound/Ulcer Outcome Not Healed -Ulcer Cleansing Rinsed/ Irrigated with Saline -Foul Odor after Cleansing No -Bioengineered Tissue No -Bleeding Controlled with Pressure -Other tunnel right side 3.0 mid tunnel 2.5cm -Offloading No -Treatment Response Procedure Tolerated Well #5 LEFT BREAST POST OP -Time 14:01 -Correct Patient Yes -Correct Side, Site, Position Yes -Correct Procedure Yes -Procedure Performed Yes -Type of Procedure Debridement -Clinical Debridement Subcutaneous -Post Debridement Size (cm) - Length 1.0 -Post Debridement Size (cm) - Width 17.5 -Post Debridement Size (cm) - Depth 2.2 -Total Square Cm 17.50 -Wound/Ulcer Outcome Not Healed -Ulcer Cleansing Rinsed/ Irrigated with Saline -Foul Odor after Cleansing No -Bioengineered Tissue No -Bleeding Controlled with Pressure -Offloading No -Treatment Response Procedure Tolerated Well Pain Scale: 0-10 Numeric Is Patient Pain Free? Yes Wound debrided: #5 Left breast. Laterality: Left Wound Grade/Stage: 2. Type of Debridement: Excisional debridement Anesthesia Used: 4% Lidocaine Solution Depth: Down to and including healthy tissue, in the subcutaneous layer Percentage of wound debrided: 100 Instrument Used: 7mm curette Tissue Removed: subcutaneous tissue. Severity: Fat Layer Exposed Amount of bleeding with debridement: Mild Bleeding Controlled with: Pressure Patient tolerated procedure well - Additional Wound Wound debrided: #6 Right lower abdominal wall. Laterality: Right Wound Grade/Stage: 2. Type of Debridement: Excisional debridement Anesthesia Used: 4% Lidocaine Solution Depth: Down to and including healthy tissue, in the subcutaneous layer Percentage of wound debrided: 100 Instrument Used: 7mm curette Tissue Removed: subcutaneous tissue. Severity: Fat Layer Exposed Amount of bleeding with debridement: Mild Bleeding Controlled with: Pressure Patient tolerated procedure: Patient tolerated procedure well Assessment/Plan Assessment: 1. 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 2. Nonhealing necrotizing infected diabetic ulcer abscess right lower abdominal wall. 3. Hematoma left medial breast, sequela. 4. Hematoma right lower abdominal wall, sequela. 5. Diabetes mellitus. 6. Smoker. 7. s/p surgical preparation left breast with incision and drainage and excisional debridement nonhealing necrotizing infected diabetic ulcer abscess and completion mastectomy (270 cm2) and surgical preparation right lower abdominal wall with incision and drainage and excisional debridement nonhealing necrotiz ing infected diabetic ulcer abscess (616 cm2). Plan: The ulcers are improving. Continue the Dakin's to the left breast and right lower abdominal wall. She is currently off her antibiotics as she has completed Vancomycin and Meropenem for Pseudomonas aeroginosa, Proteus mirabilis, Enterococcus faecalis, Enterococcus avium, MRSE, and Anaerobic cocci. She also has Melissa parapsilosis and is on Diflucan. Her Prealbumin from 08/20/18 was 6.9. Encourage nutritional supplementation with protein to help the healing process. Her HgbA1c from 08/02/18 was 6.0. Followup 2 weeks.
[2018-11-01 10:36] VITALS: BP 152/86; PULSE 103; RESP 18; TEMP 36.9; BMI 45.7
--- NOTE | 2018-11-01 23:09 | PN.PCM_ITS ---
Type of Wound Date of Service: 11/01/18 Chief Complaint: Nonhealing infected diabetic hematoma ulcer abscesses left medial breast and right lower abdominal wall. History of Wound: Surgery 08/19/18 - 1. Surgical preparation left breast with incision and drainage and excisional debridement nonhealing necrotizing infected diabetic ulcer abscess and completion mastectomy (270 cm2). 2. Surgical preparation right lower abdominal wall with incision and drainage and excisional debridement nonhealing necrotizing infected diabetic ulcer abscess (616 cm2). Her original surgery was on 08/03/18 - 1. Surgical preparation left medial breast with incision and drainage and excisional debridement nonhealing necrotizing infected diabetic hematoma ulcer abscess and partial mastectomy (70 cm2). 2. Surgical preparation right lower abdominal wall with incision and drainage and excisional debridement nonhealing necrotizing infected diabetic hematoma ulcer abscess and abdominal panniculectomy (300 cm2). She was discharged on Ertapenem and her left breast worsened with necrotizing infection which prompted further surgery on 08/19/18. Wound care - Dakin's. Operative culture - In the right lower abdominal wall - Pseudomonoas aeroginosa, Proteus mirabilis, Enterococcus faecalis, Enterococcus avium, MRSE, and Anaerobic cocci. In the left breast - Pseudomonas aeroginosa, Proteus mirabilis, and Melissa parapsilosis. She was treated with Vancomycin and Meropenem IV and has completed them. She was started on Diflucan. Prealbumin from 08/20/18 was 6.9. Encouraged nutritional supplementation with protein to help the healing process. HgbA1c from 08/02/18 was 6.0. Patient feels better as she is at home and tolerating the Dakin's dressing changes. Today she denies fever. Her appetite is ok. Progress of Wound: Improved. - Physical Exam Vital Signs Temp Pulse Resp BP 98.4 F 103 H 18 152/86 H 11/01/18 10:36 11/01/18 10:36 11/01/18 10:36 11/01/18 10:36 Wound Measurements and Assessment WC - Nurse 1 - General Ulcer Measurement Start: 10/18/18 13:30 Freq: Status: Active Protocol: Activity Type Activity Date Activity User E-Sign Co-Sign Detail Recorded Client Recorded Date Recorded By Document 11/01/18 10:36 [facility] [id number] 11/01/18 10:52 BMF 11/01/18 10:36 Wound Center Nurse 1 [Ulcer Assessment] #6 LOWER ABD POST OP -Combined with other wound No -Current Size (cm) - Length 1 -Current Size (cm) - Width 40.3 -Current Size (cm) - Depth 0.5 -Total Square Cm 40.3 -Photo Taken No -Epithelialization Small 1-33% -Tunneling No -Undermining/Tunneling No -Circular Undermining No -Exudate Amt Large -Exudate Type Serosanguineous -Wound Margin Distinct, Outline Attached -Granulation Amt Medium (34-66%) -Granulation Quality [place] -Slough/Fibrin Yes -Necrosis Amt Small (1-33%) -Necrotic Tissue Type Adherent Slough -Texture (Gabriela-wound Skin Appearance) Assessed, Scarring -Moisture (Gabriela-wound Skin Appearance Assessed ) -Color (Gabriela-wound Skin Appearance) Assessed, Erythema -Temperature (Gabriela-wound Skin No Abnormality Appearance) (Pt Warm) -Tenderness on Palpation (Gabriela-wound Yes Skin Appearance) -Ulcer Cleansing soap and water -Foul Odor after Cleansing No -Anesthetic Used 4% Lidocaine Solution #5 LEFT BREAST POST OP -Combined with other wound No -Current Size (cm) - Length 1.3 -Current Size (cm) - Width 19.3 -Current Size (cm) - Depth 2.7 -Total Square Cm 25.09 -Photo Taken No -Epithelialization None Present -Tunneling No -Undermining/Tunneling No -Circular Undermining No -Exudate Amt Large -Exudate Type Serosanguineous -Wound Margin Distinct, Outline Attached -Granulation Amt Small (1-33%) -Granulation Quality [place] -Slough/Fibrin Yes -Necrosis Amt Large (67-100%) -Necrotic Tissue Type Adherent Slough -Texture (Gabriela-wound Skin Appearance) Assessed, Scarring -Moisture (Gabriela-wound Skin Appearance Assessed ) -Color (Gabriela-wound Skin Appearance) Assessed, Erythema -Temperature (Gabriela-wound Skin No Abnormality Appearance) (Pt Warm) -Tenderness on Palpation (Gabriela-wound Yes Skin Appearance) -Ulcer Cleansing soap and water -Foul Odor after Cleansing No -Anesthetic Used 4% Lidocaine Solution WC - Nurse 2 - General Ulcer CM Notes Start: 10/18/18 13:30 Freq: Status: Active Protocol: Activity Type Activity Date Activity User E-Sign Co-Sign Detail Recorded Client Recorded Date Recorded By Document 11/01/18 11:15 [id number] 11/01/18 11:28 11/01/18 11:15 Wound Center Nurse 2 [Procedure/Treatment] #6 LOWER ABD POST OP -Time 11:16 -Correct Patient Yes -Correct Side, Site, Position Yes -Correct Procedure Yes -Procedure Performed Yes -Type of Procedure Debridement -Clinical Debridement Subcutaneous -Post Debridement Size (cm) - Length 1 -Post Debridement Size (cm) - Width 40 -Post Debridement Size (cm) - Depth 1.5 -Total Square Cm 40 -Wound/Ulcer Outcome Not Healed -Ulcer Cleansing Rinsed/ Irrigated with Saline -Foul Odor after Cleansing No -Bioengineered Tissue No -Bleeding Controlled with Pressure -Offloading No -Treatment Response Procedure Tolerated Well #5 LEFT BREAST POST OP -Time 11:16 -Correct Patient Yes -Correct Side, Site, Position Yes -Correct Procedure Yes -Procedure Performed Yes -Type of Procedure Debridement -Clinical Debridement Subcutaneous -Post Debridement Size (cm) - Length 2 -Post Debridement Size (cm) - Width 14.5 -Post Debridement Size (cm) - Depth 3.3 -Total Square Cm 29.0 -Wound/Ulcer Outcome Not Healed -Ulcer Cleansing Rinsed/ Irrigated with Saline -Foul Odor after Cleansing No -Bioengineered Tissue No -Bleeding Controlled with Pressure -Offloading No -Treatment Response Procedure Tolerated Well [See Physician Procedure note for Specifics] Pain Scale: 0-10 Numeric [Pain] -Is Patient Pain Free? Yes Debridement Note Post-Debridement Measurements/Treatment WC - Nurse 2 - General Ulcer CM Notes Start: 10/18/18 13:30 Freq: Status: Active Protocol: Activity Type Activity Date Activity User E-Sign Co-Sign Detail Recorded Client Recorded Date Recorded By Document 10/18/18 14:00 [id number] 10/18/18 14:08 Document 11/01/18 11:15 [id number] 11/01/18 11:28 10/18/18 11/01/18 14:00 11:15 Wound Center Nurse 2 #6 LOWER ABD POST OP -Time 14:01 11:16 -Correct Patient Yes Yes -Correct Side, Site, Position Yes Yes -Correct Procedure Yes Yes -Procedure Performed Yes Yes -Type of Procedure Debridement Debridement -Clinical Debridement Subcutaneous Subcutaneous -Post Debridement Size (cm) - Length 1.5 1 -Post Debridement Size (cm) - Width 43.5 40 -Post Debridement Size (cm) - Depth 3.0 1.5 -Total Square Cm 65.25 40 -Wound/Ulcer Outcome Not Healed Not Healed -Ulcer Cleansing Rinsed/ Rinsed/ Irrigated with Irrigated with Saline Saline -Foul Odor after Cleansing No No -Bioengineered Tissue No No -Bleeding Controlled with Pressure Pressure -Other tunnel right side 3.0 mid tunnel 2.5cm -Offloading No No -Treatment Response Procedure Procedure Tolerated Well Tolerated Well #5 LEFT BREAST POST OP -Time 14:01 11:16 -Correct Patient Yes Yes -Correct Side, Site, Position Yes Yes -Correct Procedure Yes Yes -Procedure Performed Yes Yes -Type of Procedure Debridement Debridement -Clinical Debridement Subcutaneous Subcutaneous -Post Debridement Size (cm) - Length 1.0 2 -Post Debridement Size (cm) - Width 17.5 14.5 -Post Debridement Size (cm) - Depth 2.2 3.3 -Total Square Cm 17.50 29.0 -Wound/Ulcer Outcome Not Healed Not Healed -Ulcer Cleansing Rinsed/ Rinsed/ Irrigated with Irrigated with Saline Saline -Foul Odor after Cleansing No No -Bioengineered Tissue No No -Bleeding Controlled with Pressure Pressure -Offloading No No -Treatment Response Procedure Procedure Tolerated Well Tolerated Well Pain Scale: 0-10 Numeric Is Patient Pain Free? Yes Yes Wound debrided: #5 Left breast. Laterality: Left Wound Grade/Stage: 2. Type of Debridement: Excisional debridement Anesthesia Used: 4% Lidocaine Solution Depth: Down to and including healthy tissue, in the subcutaneous layer Percentage of wound debrided: 100 Instrument Used: 3mm curette Tissue Removed: subcutaneous tissue. Severity: Fat Layer Exposed Amount of bleeding with debridement: Mild Bleeding Controlled with: Pressure Patient tolerated procedure well - Additional Wound Wound debrided: #6 Right lower abdominal wall. Laterality: Right Wound Grade/Stage: 2. Type of Debridement: Excisional debridement Anesthesia Used: 4% Lidocaine Solution Depth: Down to and including healthy tissue, in the subcutaneous layer Percentage of wound debrided: 100 Instrument Used: 5mm curette Tissue Removed: subcutaneous tissue. Severity: Fat Layer Exposed Amount of bleeding with debridement: Mild Bleeding Controlled with: Pressure Patient tolerated procedure: Patient tolerated procedure well Assessment/Plan Assessment: 1. 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 2. Nonhealing necrotizing infected diabetic ulcer abscess right lower abdominal wall. 3. Hematoma left medial breast, sequela. 4. Hematoma right lower abdominal wall, sequela. 5. Diabetes mellitus. 6. Smoker. 7. s/p surgical preparation left breast with incision and drainage and excisional debridement nonhealing necrotizing infected diabetic ulcer abscess and completion mastectomy (270 cm2) and surgical preparation right lower abdominal wall with incision and drainage and excisional debridement nonhealing necrotizing infected diabetic ulcer abscess (616 cm2). Plan: The ulcers are improving. Continue the Dakin's to the left breast and right lower abdominal wall at the edges. The middle portions are almost healed and can be treated with Collagen Hydrogel. She is currently off her antibiotics as she has completed Vancomycin and Meropenem for Pseudomonas aeroginosa, Proteus mirabilis, Enterococcus faecalis, Enterococcus avium, MRSE, and Anaerobic cocci. She also has Melissa parapsilosis and is on Diflucan. Her Prealbumin from 08/20/18 was 6.9. Encourage nutritional supplementation with protein to help the healing process. Her HgbA1c from 08/02/18 was 6.0. Followup 2 weeks.
== END 2018-11-08 23:59 ==
LOC: WC 10:30
PROVIDERS: Family Provider Family Medicine; Visit Provider Family Medicine
DX: E11.622 Type 2 diabetes mellitus with other skin ulcer (principal); L02.211 Cutaneous abscess of abdominal wall; N61.1 Abscess of the breast and nipple; Z90.12 Acquired absence of left breast and nipple
CPT/HCPCS: 11042; 11045

== ENCOUNTER 2018-12-06 10:45 | Outpatient (RCR) | payer OTHER, SELFPAY ==
[2017-07-08 11:20] VITALS: BMI 52.1
[2018-11-09 00:44] VITALS: BP 152/86; PULSE 103; RESP 18; TEMP 36.9
[2018-11-15 11:23] VITALS: BP 132/76; PULSE 96; RESP 18; BMI 45.7
--- NOTE | 2018-11-15 23:11 | PCM.WC.PN ---
Type of Wound Date of Service: 11/15/18 Chief Complaint: Nonhealing infected diabetic hematoma ulcer abscesses left medial breast and right lower abdominal wall. History of Wound: Surgery 08/19/18 - 1. Surgical preparation left breast with incision and drainage and excisional debridement nonhealing necrotizing infected diabetic ulcer abscess and completion mastectomy (270 cm2). 2. Surgical preparation right lower abdominal wall with incision and drainage and excisional debridement nonhealing necrotizing infected diabetic ulcer abscess (616 cm2). Her original surgery was on 08/03/18 - 1. Surgical preparation left medial breast with incision and drainage and excisional debridement nonhealing necrotizing infected diabetic hematoma ulcer abscess and partial mastectomy (70 cm2). 2. Surgical preparation right lower abdominal wall with incision and drainage and excisional debridement nonhealing necrotizing infected diabetic hematoma ulcer abscess and abdominal panniculectomy (300 cm2). She was discharged on Ertapenem and her left breast worsened with necrotizing infection which prompted further surgery on 08/19/18. Wound care - Dakin's and Collagen Hydrogel. Operative culture - In the right lower abdominal wall - Pseudomonoas aeroginosa, Proteus mirabilis, Enterococcus faecalis, Enterococcus avium, MRSE, and Anaerobic cocci. In the left breast - Pseudomonas aeroginosa, Proteus mirabilis, and Melissa parapsilosis. She was treated with Vancomycin and Meropenem IV and has completed them. She was started on Diflucan and has finished them. Prealbumin from 08/20/18 was 6.9. Encouraged nutritional supplementation with protein to help the healing process. HgbA1c from 08/02/18 was 6.0. Patient feels better as she is at home and tolerating the Dakin's dressing changes. Today she denies fever. Her appetite is ok. Progress of Wound: Improved. - Physical Exam Vital Signs Temp Pulse Resp BP 98.4 F 96 18 132/76 H 11/09/18 00:44 11/15/18 11:23 11/15/18 11:23 11/15/18 11:23 Wound Measurements and Assessment WC - Nurse 1 - General Ulcer Measurement Start: 11/15/18 11:23 Freq: Status: Active Protocol: Activity Type Activity Date Activity User E-Sign Co-Sign Detail Recorded Client Recorded Date Recorded By Document 11/15/18 11:23 BMF [id number] 11/15/18 11:34 BMF 11/15/18 11:23 Wound Center Nurse 1 [Ulcer Assessment] #6 LOWER ABD POST OP -Combined with other wound No -Current Size (cm) - Length 0.2 -Current Size (cm) - Width 22.7 -Current Size (cm) - Depth 1.2 -Total Square Cm 4.54 -Photo Taken No -Epithelialization None Present -Tunneling No -Undermining/Tunneling No -Circular Undermining No -Exudate Amt Medium -Exudate Type Serosanguineous -Wound Margin Distinct, Outline Attached -Granulation Amt Medium (34-66%) -Granulation Quality Red -Slough/Fibrin Yes -Necrosis Amt Medium (34-66%) -Necrotic Tissue Type Adherent Slough -Texture (Gabriela-wound Skin Appearance) Assessed, Scarring -Moisture (Gabriela-wound Skin Appearance Assessed ) -Color (Gabriela-wound Skin Appearance) Assessed, Erythema -Temperature (Gabriela-wound Skin No Abnormality Appearance) (Pt Warm) -Tenderness on Palpation (Gabriela-wound No Skin Appearance) -Ulcer Cleansing soap and water -Foul Odor after Cleansing No -Anesthetic Used 4% Lidocaine Solution #5 LEFT BREAST POST OP -Combined with other wound No -Current Size (cm) - Length 1.5 -Current Size (cm) - Width 20.5 -Current Size (cm) - Depth 0.7 -Total Square Cm 30.75 -Photo Taken No -Epithelialization None Present -Tunneling No -Undermining/Tunneling No -Circular Undermining No -Exudate Amt Medium -Exudate Type Serosanguineous -Wound Margin Distinct, Outline Attached -Granulation Amt Small (1-33%) -Granulation Quality Red -Slough/Fibrin Yes -Necrosis Amt Medium (34-66%) -Necrotic Tissue Type Adherent Slough -Texture (Gabriela-wound Skin Appearance) Assessed, Scarring -Moisture (Gabriela-wound Skin Appearance Assessed ) -Color (Gabriela-wound Skin Appearance) Assessed, Erythema -Temperature (Gabriela-wound Skin No Abnormality Appearance) (Pt Warm) -Tenderness on Palpation (Gabriela-wound No Skin Appearance) -Ulcer Cleansing Rinsed/ Irrigated with Saline -Foul Odor after Cleansing No -Anesthetic Used 4% Lidocaine Solution WC - Nurse 2 - General Ulcer CM Notes Start: 11/15/18 11:23 Freq: Status: Active Protocol: Activity Type Activity Date Activity User E-Sign Co-Sign Detail Recorded Client Recorded Date Recorded By Document 11/15/18 11:52 [id number] 11/15/18 11:56 11/15/18 11:52 Wound Center Nurse 2 [Procedure/Treatment] #6 LOWER ABD POST OP -Time 11:55 -Correct Patient Yes -Correct Side, Site, Position Yes -Correct Procedure Yes -Procedure Performed Yes -Type of Procedure Debridement -Clinical Debridement Subcutaneous -Post Debridement Size (cm) - Length 37 -Post Debridement Size (cm) - Width 0.5 -Post Debridement Size (cm) - Depth 1.3 -Total Square Cm 18.5 -Wound/Ulcer Outcome Not Healed -Ulcer Cleansing Rinsed/ Irrigated with Saline -Foul Odor after Cleansing No -Bioengineered Tissue No -Bleeding Controlled with Pressure -Offloading No -Treatment Response Procedure Tolerated Well #5 LEFT BREAST POST OP -Time 11:55 -Correct Patient Yes -Correct Side, Site, Position Yes -Correct Procedure Yes -Procedure Performed Yes -Type of Procedure Debridement -Clinical Debridement Subcutaneous -Post Debridement Size (cm) - Length 1.7 -Post Debridement Size (cm) - Width 13.0 -Post Debridement Size (cm) - Depth 1.2 -Total Square Cm 22.10 -Wound/Ulcer Outcome Not Healed -Ulcer Cleansing Rinsed/ Irrigated with Saline -Foul Odor after Cleansing No -Bioengineered Tissue No -Bleeding Controlled with Pressure -Offloading No -Treatment Response Procedure Tolerated Well [See Physician Procedure note for Specifics] Pain Scale: 0-10 Numeric [Pain] -Is Patient Pain Free? Yes Debridement Note Post-Debridement Measurements/Treatment WC - Nurse 2 - General Ulcer CM Notes Start: 11/15/18 11:23 Freq: Status: Active Protocol: Activity Type Activity Date Activity User E-Sign Co-Sign Detail Recorded Client Recorded Date Recorded By Document 11/15/18 11:52 [id number] 11/15/18 11:56 11/15/18 11:52 Wound Center Nurse 2 #6 LOWER ABD POST OP -Time 11:55 -Correct Patient Yes -Correct Side, Site, Position Yes -Correct Procedure Yes -Procedure Performed Yes -Type of Procedure Debridement -Clinical Debridement Subcutaneous -Post Debridement Size (cm) - Length 37 -Post Debridement Size (cm) - Width 0.5 -Post Debridement Size (cm) - Depth 1.3 -Total Square Cm 18.5 -Wound/Ulcer Outcome Not Healed -Ulcer Cleansing Rinsed/ Irrigated with Saline -Foul Odor after Cleansing No -Bioengineered Tissue No -Bleeding Controlled with Pressure -Offloading No -Treatment Response Procedure Tolerated Well #5 LEFT BREAST POST OP -Time 11:55 -Correct Patient Yes -Correct Side, Site, Position Yes -Correct Procedure Yes -Procedure Performed Yes -Type of Procedure Debridement -Clinical Debridement Subcutaneous -Post Debridement Size (cm) - Length 1.7 -Post Debridement Size (cm) - Width 13.0 -Post Debridement Size (cm) - Depth 1.2 -Total Square Cm 22.10 -Wound/Ulcer Outcome Not Healed -Ulcer Cleansing Rinsed/ Irrigated with Saline -Foul Odor after Cleansing No -Bioengineered Tissue No -Bleeding Controlled with Pressure -Offloading No -Treatment Response Procedure Tolerated Well Pain Scale: 0-10 Numeric Is Patient Pain Free? Yes Wound debrided: #5 Left breast. Laterality: Left Wound Grade/Stage: 2. Type of Debridement: Excisional debridement Anesthesia Used: 4% Lidocaine Solution Depth: Down to and including healthy tissue, in the subcutaneous layer Percentage of wound debrided: 100 Instrument Used: 5mm curette Tissue Removed: subcutaneous tissue. Severity: Fat Layer Exposed Amount of bleeding with debridement: Mild Bleeding Controlled with: Pressure Patient tolerated procedure well - Additional Wound Wound debrided: #6 Right lower abdominal wall. Laterality: Right Wound Grade/Stage: 2. Type of Debridement: Excisional debridement Anesthesia Used: 4% Lidocaine Solution Depth: Down to and including healthy tissue, in the subcutaneous layer Percentage of wound debrided: 100 Instrument Used: 5mm curette Tissue Removed: subcutaneous tissue. Severity: Fat Layer Exposed Amount of bleeding with debridement: Mild Bleeding Controlled with: Pressure Patient tolerated procedure: Patient tolerated procedure well Assessment/Plan Assessment: 1. 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 2. Nonhealing necrotizing infected diabetic ulcer abscess right lower abdominal wall. 3. Hematoma left medial breast, sequela. 4. Hematoma right lower abdominal wall, sequela. 5. Diabetes mellitus. 6. Smoker. 7. s/p surgical preparation left breast with incision and drainage and excisional debridement nonhealing necrotizing infected diabetic ulcer abscess and completion mastectomy (270 cm2) and surgical preparation right lower abdominal wall with incision and drainage and excisional debridement nonhealing necrotizing infected diabetic ulcer abscess (616 cm2). Plan: The ulcers are improving. Continue the Dakin's to the left breast and right lower abdominal wall at the edges. The middle portions are almost healed and can be treated with Collagen Hydrogel. She is currently off her antibiotics as she has completed Vancomycin and Meropenem for Pseudomonas aeroginosa, Proteus mirabilis, Enterococcus faecalis, Enterococcus avium, MRSE, and Anaerobic cocci. She also has Melissa parapsilosis and was placed on Diflucan and has finished them. Her Prealbumin from 08/20/18 was 6.9. Encourage nutritional supplementation with protein to help the healing process. Her HgbA1c from 08/02/18 was 6.0. Followup 2 weeks.
[2018-11-29 10:17] VITALS: BP 161/79; PULSE 105; RESP 18; TEMP 36.7; BMI 45.7
--- NOTE | 2018-11-29 14:29 | PCM.WC.PN ---
(1) Ulcer of abdomen wall with fat layer exposed Status: Chronic Code(s): L98.492 - Non-pressure chronic ulcer of skin of other sites with fat layer exposed (2) Abdominal panniculus, symptomatic Status: Chronic Code(s): E65 - Localized adiposity (3) Wound of left breast Status: Chronic Qualifiers: Code(s): S21.002A - Unspecified open wound of left breast, initial encounter (4) Tobacco use disorder Status: Chronic Code(s): F17.200 - Nicotine dependence, unspecified, uncomplicated Type of Wound Date of Service: 11/29/18 Chief Complaint: Nonhealing infected diabetic hematoma ulcer abscesses left medial breast and right lower abdominal wall. History of Wound: Surgery 08/19/18 - 1. Surgical preparation left breast with incision and drainage and excisional debridement nonhealing necrotizing infected diabetic ulcer abscess and completion mastectomy (270 cm2). 2. Surgical preparation right lower abdominal wall with incision and drainage and excisional debridement nonhealing necrotizing infected diabetic ulcer abscess (616 cm2). Her original surgery was on 08/03/18 - 1. Surgical preparation left medial breast with incision and drainage and excisional debridement nonhealing necrotizing infected diabetic hematoma ulcer abscess and partial mastectomy (70 cm2). 2. Surgical preparation right lower abdominal wall with incision and drainage and excisional debridement nonhealing necrotizing infected diabetic hematoma ulcer abscess and abdominal panniculectomy (300 cm2). She was discharged on Ertapenem and her left breast worsened with necrotizing infection which prompted further surgery on 08/19/18. Wound care - Dakin's and Collagen Hydrogel. Operative culture - In the right lower abdominal wall - Pseudomonoas aeroginosa, Proteus mirabilis, Enterococcus faecalis, Enterococcus avium, MRSE, and Anaerobic cocci. In the left breast - Pseudomonas aeroginosa, Proteus mirabilis, and Melissa parapsilosis. She was treated with Vancomycin and Meropenem IV and has completed them. She was started on Diflucan and has finished them. Prealbumin from 08/20/18 was 6.9. Encouraged nutritional supplementation with protein to help the healing process. HgbA1c from 08/02/18 was 6.0. Patient feels better as she is at home and tolerating the Dakin's dressing changes. Today she denies fever. Her appetite is ok. Progress of Wound: Improved. - Physical Exam Vital Signs Temp Pulse Resp BP 98.0 F 105 H 18 161/79 H 11/29/18 10:17 11/29/18 10:17 11/29/18 10:17 11/29/18 10:17 General: Alert, Oriented x3, Cooperative HEENT: Atraumatic Oral: Moist Mucosa Lungs: Normal air movement Cardiovascular: Regular rate Abdomen: Obese Extremities: Capillary Refill Less than 3 Seconds Skin: Ulcer/ Wound - Left breast wound and lower abdominal ulcer Wound Measurements and Assessment WC - Nurse 1 - General Ulcer Measurement Start: 11/15/18 11:23 Freq: Status: Active Protocol: Activity Type Activity Date Activity User E-Sign Co-Sign Detail Recorded Client Recorded Date Recorded By Document 11/29/18 10:17 MW [id number] 11/29/18 10:29 MW 11/29/18 10:17 Wound Center Nurse 1 [Ulcer Assessment] #6 LOWER ABD POST OP -Combined with other wound No -Current Size (cm) - Length 0.3 -Current Size (cm) - Width 39.9 -Current Size (cm) - Depth 0.8 -Total Square Cm 11.97 -Date of Last Picture (Recall this 11/29/18 field) -Photo Taken Yes -Epithelialization Small 1-33% -Tunneling No -Undermining/Tunneling No -Circular Undermining No -Wound Margin Distinct, Outline Attached -Granulation Amt Medium (34-66%) -Granulation Quality [place] -Slough/Fibrin Yes -Necrosis Amt Medium (34-66%) -Necrotic Tissue Type Adherent Slough -Structure Exposed N/A -Texture (Gabriela-wound Skin Appearance) Assessed, Scarring -Moisture (Gabriela-wound Skin Appearance Assessed, ) Maceration -Color (Gabriela-wound Skin Appearance) No Abnormality, Assessed -Temperature (Gabriela-wound Skin No Abnormality Appearance) (Pt Warm) -Tenderness on Palpation (Gabriela-wound No Skin Appearance) -Ulcer Cleansing soap and water -Foul Odor after Cleansing No -Anesthetic Used 4% Lidocaine Solution,5% Lidocaine Gel #5 LEFT BREAST POST OP -Combined with other wound No -Current Size (cm) - Length 2.5 -Current Size (cm) - Width 19.7 -Current Size (cm) - Depth 1.0 -Total Square Cm 49.25 -Date of Last Picture (Recall this 11/29/18 field) -Photo Taken Yes -Epithelialization None Present -Tunneling No -Undermining/Tunneling No -Circular Undermining No -Exudate Amt Large -Exudate Type Serosanguineous -Wound Margin Distinct, Outline Attached -Granulation Amt Small (1-33%) -Granulation Quality [place] -Slough/Fibrin Yes -Necrosis Amt Large (67-100%) -Necrotic Tissue Type Adherent Slough -Structure Exposed N/A -Texture (Gabriela-wound Skin Appearance) Assessed, Scarring -Moisture (Gabriela-wound Skin Appearance No Abnormality, ) Assessed -Color (Gabriela-wound Skin Appearance) Assessed, Erythema -Temperature (Gabriela-wound Skin No Abnormality Appearance) (Pt Warm) -Tenderness on Palpation (Gabriela-wound Yes Skin Appearance) -Ulcer Cleansing soap and water -Foul Odor after Cleansing No -Anesthetic Used 4% Lidocaine Solution,5% Lidocaine Gel [Edema Assessment] -Lower Limb Edema Present No WC - Nurse 2 - General Ulcer CM Notes Start: 11/15/18 11:23 Freq: Status: Active Protocol: Activity Type Activity Date Activity User E-Sign Co-Sign Detail Recorded Client Recorded Date Recorded By Document 11/29/18 10:56 [id number] 11/29/18 11:03 11/29/18 10:56 Wound Center Nurse 2 [Procedure/Treatment] #6 LOWER ABD POST OP -Time 10:56 -Correct Patient Yes -Correct Side, Site, Position Yes -Correct Procedure Yes -Procedure Performed Yes -Type of Procedure Debridement -Clinical Debridement Subcutaneous -Post Debridement Size (cm) - Length 0.8 -Post Debridement Size (cm) - Width 42.0 -Post Debridement Size (cm) - Depth 1.0 -Total Square Cm 33.60 -Wound/Ulcer Outcome Not Healed -Ulcer Cleansing Rinsed/ Irrigated with Saline -Foul Odor after Cleansing No -Bioengineered Tissue No -Bleeding Controlled with Pressure -Offloading No #5 LEFT BREAST POST OP -Time 11:03 -Correct Patient Yes -Correct Side, Site, Position Yes -Correct Procedure Yes -Procedure Performed Yes -Type of Procedure Debridement -Clinical Debridement Subcutaneous -Post Debridement Size (cm) - Length 2.0 -Post Debridement Size (cm) - Width 20.0 -Post Debridement Size (cm) - Depth 1.4 -Total Square Cm 40.00 -Wound/Ulcer Outcome Not Healed -Ulcer Cleansing Rinsed/ Irrigated with Saline -Foul Odor after Cleansing No -Bioengineered Tissue No -Bleeding Controlled with Pressure -Offloading No -Treatment Response Procedure Tolerated Well [See Physician Procedure note for Specifics] Pain Scale: 0-10 Numeric [Pain] -Is Patient Pain Free? Yes Musculoskeletal: No Tenderness to Palpation of Joints or Extremities Neurological: Neuro grossly intact Psych/Mental Status: Normal Affect, Appropriate Debridement Note Post-Debridement Measurements/Treatment WC - Nurse 2 - General Ulcer CM Notes Start: 11/15/18 11:23 Freq: Status: Active Protocol: Activity Type Activity Date Activity User E-Sign Co-Sign Detail Recorded Client Recorded Date Recorded By Document 11/15/18 11:52 [id number] 11/15/18 11:56 Document 11/29/18 10:56 [id number] 11/29/18 11:03 11/15/18 11/29/18 11:52 10:56 Wound Center Nurse 2 #6 LOWER ABD POST OP -Time 11:55 10:56 -Correct Patient Yes Yes -Correct Side, Site, Position Yes Yes -Correct Procedure Yes Yes -Procedure Performed Yes Yes -Type of Procedure Debridement Debridement -Clinical Debridement Subcutaneous Subcutaneous -Post Debridement Size (cm) - Length 37 0.8 -Post Debridement Size (cm) - Width 0.5 42.0 -Post Debridement Size (cm) - Depth 1.3 1.0 -Total Square Cm 18.5 33.60 -Wound/Ulcer Outcome Not Healed Not Healed -Ulcer Cleansing Rinsed/ Rinsed/ Irrigated with Irrigated with Saline Saline -Foul Odor after Cleansing No No -Bioengineered Tissue No No -Bleeding Controlled with Pressure Pressure -Offloading No No -Treatment Response Procedure Tolerated Well #5 LEFT BREAST POST OP -Time 11:55 11:03 -Correct Patient Yes Yes -Correct Side, Site, Position Yes Yes -Correct Procedure Yes Yes -Procedure Performed Yes Yes -Type of Procedure Debridement Debridement -Clinical Debridement Subcutaneous Subcutaneous -Post Debridement Size (cm) - Length 1.7 2.0 -Post Debridement Size (cm) - Width 13.0 20.0 -Post Debridement Size (cm) - Depth 1.2 1.4 -Total Square Cm 22.10 40.00 -Wound/Ulcer Outcome Not Healed Not Healed -Ulcer Cleansing Rinsed/ Rinsed/ Irrigated with Irrigated with Saline Saline -Foul Odor after Cleansing No No -Bioengineered Tissue No No -Bleeding Controlled with Pressure Pressure -Offloading No No -Treatment Response Procedure Procedure Tolerated Well Tolerated Well Pain Scale: 0-10 Numeric Is Patient Pain Free? Yes Yes Wound debrided: breast wound Laterality: Left Type of Debridement: Excisional debridement Anesthesia Used: 4% Lidocaine Solution, 5% Lidocaine Gel Depth: Down to and including healthy tissue, in the subcutaneous layer Percentage of wound debrided: 100 Instrument Used: 7mm curette Tissue Removed: Subcutaneous tissue and slough Severity: Fat Layer Exposed Amount of bleeding with debridement: Moderate Bleeding Controlled with: Pressure, Compression and gauze Patient tolerated procedure well - Additional Wound Wound debrided: Lower abdominal ulcer Laterality: Not Applicable Type of Debridement: Excisional debridement Anesthesia Used: 4% Lidocaine Solution, 5% Lidocaine Gel Depth: Down to and including healthy tissue, in the subcutaneous layer Percentage of wound debrided: 100 Instrument Used: 5mm curette Tissue Removed: Subcutaneous tissue and slough Severity: Fat Layer Exposed Amount of bleeding with debridement: Moderate Bleeding Controlled with: Pressure, Compression and gauze Patient tolerated procedure: Patient tolerated procedure well Assessment/Plan Assessment: 1. 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 2. Nonhealing necrotizing infected diabetic ulcer abscess right lower abdominal wall. 3. Hematoma left medial breast, sequela. 4. Hematoma right lower abdominal wall, sequela. 5. Diabetes mellitus. 6. Smoker. 7. s/p surgical preparation left breast with incision and drainage and excisional debridement nonhealing necrotizing infected diabetic ulcer abscess and completion mastectomy (270 cm2) and surgical preparation right lower abdominal wall with incision and drainage and excisional debridement nonhealing necrotizing infected diabetic ulcer abscess (616 cm2). Plan: The ulcers are improving. Continue the Dakin's to the left breast and right lower abdominal wall at the edges. The middle portions are almost healed and can be treated with Collagen Hydrogel. She is having increased amount of pain today. Wound culture obtained. She is currently off her antibiotics as she has completed Vancomycin and Meropenem for Pseudomonas aeroginosa, Proteus mirabilis, Enterococcus faecalis, Enterococcus avium, MRSE, and Anaerobic cocci. She also has Melissa parapsilosis and was placed on Diflucan and has finished them. Her Prealbumin from 08/20/18 was 6.9. Encourage nutritional supplementation with protein to help the healing process. Her HgbA1c from 08/02/18 was 6.0. She is interested in obtaining a breast prosthesis before the end of the year. Followup 2 weeks. Code Visit [id number]: [id number] Poppy subq tissue 20 sq cm/< Add On Codes: [id number] Poppy subq tissue add-on - x3
[2018-12-06 11:06] VITALS: BP 123/70; PULSE 85; RESP 18; TEMP 36.5; BMI 45.7
--- NOTE | 2018-12-06 18:34 | PCM.WC.PN ---
Type of Wound Date of Service: 12/06/18 Chief Complaint: Nonhealing infected diabetic hematoma ulcer abscesses left medial breast and right lower abdominal wall. History of Wound: Surgery 08/19/18 - 1. Surgical preparation left breast with incision and drainage and excisional debridement nonhealing necrotizing infected diabetic ulcer abscess and completion mastectomy (270 cm2). 2. Surgical preparation right lower abdominal wall with incision and drainage and excisional debridement nonhealing necrotizing infected diabetic ulcer abscess (616 cm2). Her original surgery was on 08/03/18 - 1. Surgical preparation left medial breast with incision and drainage and excisional debridement nonhealing necrotizing infected diabetic hematoma ulcer abscess and partial mastectomy (70 cm2). 2. Surgical preparation right lower abdominal wall with incision and drainage and excisional debridement nonhealing necrotizing infected diabetic hematoma ulcer abscess and abdominal panniculectomy (300 cm2). She was discharged on Ertapenem and her left breast worsened with necrotizing infection which prompted further surgery on 08/19/18. Wound care - Silver. Operative culture - In the right lower abdominal wall - Pseudomonoas aeroginosa, Proteus mirabilis, Enterococcus faecalis, Enterococcus avium, MRSE, and Anaerobic cocci. In the left breast - Pseudomonas aeroginosa, Proteus mirabilis, and Melissa parapsilosis. She was treated with Vancomycin and Meropenem IV and has completed them. She was started on Diflucan and has finished them. She had repeat wound cultures on 11/29/18. The left breast showed Morganella morganii, Pseudonomonas aeroginosa, Staphylococcus cohnii urealyti, Corynebacterium striatum, Anaerobic cocci, and Prevotella disiens. The right lower abdominal wall showed Pseudomonas aeroginosa x2, Staphylococcus aureus, Corynebacterium striatum, Anaerobic cocci, and Prevotella bivia. She was started on Doxycycline and Flagyl. She is allergic to Levaquin and Sulfa. Prealbumin from 08/20/18 was 6.9. Encouraged nutritional supplementation with protein to help the healing process. HgbA1c from 08/02/18 was 6.0. Today she denies fever. Her appetite is ok. Progress of Wound: Improved. - Physical Exam Vital Signs Temp Pulse Resp BP 97.7 F L 85 18 123/70 H 12/06/18 11:06 12/06/18 11:06 12/06/18 11:06 12/06/18 11:06 Wound Measurements and Assessment WC - Nurse 1 - General Ulcer Measurement Start: 11/15/18 11:23 Freq: Status: Active Protocol: Activity Type Activity Date Activity User E-Sign Co-Sign Detail Recorded Client Recorded Date Recorded By Document 12/06/18 11:06 DL [id number] 12/06/18 11:26 DL 12/06/18 11:06 Wound Center Nurse 1 [Ulcer Assessment] #6 LOWER ABD POST OP -Current Size (cm) - Length 0.8 -Current Size (cm) - Width 39.5 -Current Size (cm) - Depth 0.6 -Total Square Cm 31.60 -Photo Taken No -Exudate Amt Small -Exudate Type Serosanguineous -Wound Margin Indistinct, Non -Visible -Granulation Amt Small (1-33%) -Granulation Quality [place] -Necrosis Amt Large (67-100%) -Necrotic Tissue Type Adherent Slough -Structure Exposed N/A -Texture (Gabriela-wound Skin Appearance) Scarring -Moisture (Gabriela-wound Skin Appearance No Abnormality ) -Color (Gabriela-wound Skin Appearance) Erythema,Rubor -Temperature (Gabriela-wound Skin No Abnormality Appearance) (Pt Warm) -Tenderness on Palpation (Gabriela-wound Yes Skin Appearance) -Ulcer Cleansing Wound Cleanser -Foul Odor after Cleansing No -Anesthetic Used 5% Lidocaine Gel #5 LEFT BREAST POST OP -Current Size (cm) - Length 1.8 -Current Size (cm) - Width 14.5 -Current Size (cm) - Depth 1 -Total Square Cm 26.10 -Photo Taken No -Exudate Amt Medium -Exudate Type Serosanguineous -Wound Margin Distinct, Outline Attached -Granulation Amt Medium (34-66%) -Granulation Quality [place] -Necrosis Amt Medium (34-66%) -Necrotic Tissue Type Adherent Slough -Structure Exposed N/A -Texture (Gabriela-wound Skin Appearance) Scarring -Moisture (Gabriela-wound Skin Appearance No Abnormality ) -Color (Gabriela-wound Skin Appearance) Erythema,Rubor -Temperature (Gabriela-wound Skin No Abnormality Appearance) (Pt Warm) -Tenderness on Palpation (Gabriela-wound Yes Skin Appearance) -Ulcer Cleansing Wound Cleanser -Foul Odor after Cleansing No -Anesthetic Used 4% Lidocaine Solution,5% Lidocaine Gel WC - Nurse 2 - General Ulcer CM Notes Start: 11/15/18 11:23 Freq: Status: Active Protocol: Activity Type Activity Date Activity User E-Sign Co-Sign Detail Recorded Client Recorded Date Recorded By Document 12/06/18 11:43 [id number] 12/06/18 11:49 12/06/18 11:43 Wound Center Nurse 2 [Procedure/Treatment] #6 LOWER ABD POST OP -Time 11:48 -Correct Patient Yes -Correct Side, Site, Position Yes -Correct Procedure Yes -Procedure Performed Yes -Type of Procedure Debridement -Clinical Debridement Subcutaneous -Post Debridement Size (cm) - Length 0.9 -Post Debridement Size (cm) - Width 39.6 -Post Debridement Size (cm) - Depth 0.6 -Total Square Cm 35.64 -Wound/Ulcer Outcome Not Healed -Ulcer Cleansing Rinsed/ Irrigated with Saline -Foul Odor after Cleansing No -Bioengineered Tissue No -Bleeding Controlled with Pressure -Offloading No -Treatment Response Procedure Tolerated Well #5 LEFT BREAST POST OP -Time 11:49 -Correct Patient Yes -Correct Side, Site, Position Yes -Correct Procedure Yes -Procedure Performed Yes -Type of Procedure Debridement -Clinical Debridement Subcutaneous -Post Debridement Size (cm) - Length 1.8 -Post Debridement Size (cm) - Width 14.6 -Post Debridement Size (cm) - Depth 1.0 -Total Square Cm 26.28 -Wound/Ulcer Outcome Not Healed -Ulcer Cleansing Rinsed/ Irrigated with Saline -Foul Odor after Cleansing No -Bioengineered Tissue No -Bleeding Controlled with Pressure -Offloading No -Treatment Response Procedure Tolerated Well [See Physician Procedure note for Specifics] Pain Scale: 0-10 Numeric [Pain] -Is Patient Pain Free? Yes Debridement Note Post-Debridement Measurements/Treatment WC - Nurse 2 - General Ulcer CM Notes Start: 11/15/18 11:23 Freq: Status: Active Protocol: Activity Type Activity Date Activity User E-Sign Co-Sign Detail Recorded Client Recorded Date Recorded By Document 11/15/18 11:52 [id number] 11/15/18 11:56 Document 11/29/18 10:56 [id number] 11/29/18 11:03 Document 12/06/18 11:43 [id number] 12/06/18 11:49 JF 11/15/18 11/29/18 12/06/18 11:52 10:56 11:43 Wound Center Nurse 2 #6 LOWER ABD POST OP -Time 11:55 10:56 11:48 -Correct Patient Yes Yes Yes -Correct Side, Site, Position Yes Yes Yes -Correct Procedure Yes Yes Yes -Procedure Performed Yes Yes Yes -Type of Procedure Debridement Debridement Debridement -Clinical Debridement Subcutaneous Subcutaneous Subcutaneous -Post Debridement Size (cm) - Length 37 0.8 0.9 -Post Debridement Size (cm) - Width 0.5 42.0 39.6 -Post Debridement Size (cm) - Depth 1.3 1.0 0.6 -Total Square Cm 18.5 33.60 35.64 -Wound/Ulcer Outcome Not Healed Not Healed Not Healed -Ulcer Cleansing Rinsed/ Rinsed/ Rinsed/ Irrigated with Irrigated with Irrigated with Saline Saline Saline -Foul Odor after Cleansing No No No -Bioengineered Tissue No No No -Bleeding Controlled with Pressure Pressure Pressure -Offloading No No No -Treatment Response Procedure Procedure Tolerated Well Tolerated Well #5 LEFT BREAST POST OP -Time 11:55 11:03 11:49 -Correct Patient Yes Yes Yes -Correct Side, Site, Position Yes Yes Yes -Correct Procedure Yes Yes Yes -Procedure Performed Yes Yes Yes -Type of Procedure Debridement Debridement Debridement -Clinical Debridement Subcutaneous Subcutaneous Subcutaneous -Post Debridement Size (cm) - Length 1.7 2.0 1.8 -Post Debridement Size (cm) - Width 13.0 20.0 14.6 -Post Debridement Size (cm) - Depth 1.2 1.4 1.0 -Total Square Cm 22.10 40.00 26.28 -Wound/Ulcer Outcome Not Healed Not Healed Not Healed -Ulcer Cleansing Rinsed/ Rinsed/ Rinsed/ Irrigated with Irrigated with Irrigated with Saline Saline Saline -Foul Odor after Cleansing No No No -Bioengineered Tissue No No No -Bleeding Controlled with Pressure Pressure Pressure -Offloading No No No -Treatment Response Procedure Procedure Procedure Tolerated Well Tolerated Well Tolerated Well Pain Scale: 0-10 Numeric Is Patient Pain Free? Yes Yes Yes Wound debrided: #5 Left breast. Laterality: Left Wound Grade/Stage: 2. Type of Debridement: Excisional debridement Anesthesia Used: 4% Lidocaine Solution Depth: Down to and including healthy tissue, in the subcutaneous layer Percentage of wound debrided: 100 Instrument Used: 5mm curette Tissue Removed: subcutaneous tissue. Severity: Fat Layer Exposed Amount of bleeding with debridement: Mild Bleeding Controlled with: Pressure Patient tolerated procedure well - Additional Wound Wound debrided: #6 Right lower abdominal wall. Laterality: Right Wound Grade/Stage: 2. Type of Debridement: Excisional debridement Anesthesia Used: 4% Lidocaine Solution Depth: Down to and including healthy tissue, in the subcutaneous layer Percentage of wound debrided: 100 Instrument Used: 3mm curette Tissue Removed: subcutaneous tissue. Severity: Fat Layer Exposed Amount of bleeding with debridement: Mild Bleeding Controlled with: Pressure Patient tolerated procedure: Patient tolerated procedure well Assessment/Plan Assessment: 1. 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 2. Nonhealing necrotizing infected diabetic ulcer abscess right lower abdominal wall. 3. Hematoma left medial breast, sequela. 4. Hematoma right lower abdominal wall, sequela. 5. Diabetes mellitus. 6. Smoker. 7. s/p surgical preparation left breast with incision and drainage and excisional debridement nonhealing necrotizing infected diabetic ulcer abscess and completion mastectomy (270 cm2) and surgical preparation right lower abdominal wall with incision and drainage and excisional debridement nonhealing necrotizing infected diabetic ulcer abscess (616 cm2). Plan: The ulcers are improving. Continue the Silver dressing to the left breast and right lower abdominal wall. Will start Acetic Acid dressing changes when it is available because we are unable to treat the Pseudomonas from her recent culture on 11/29/18. The left breast culture showed Morganella morganii, Pseudomonas aeroginosa, Staphylococcus cohnii urealyti, Corynebacterium striatum, Anaerobic cocci, and Prevotella disiens. The right lower abdominal wall culture showed Pseudomonas aeroginosa x2, Staphylococcus aureus, Corynebacterium striatum, Anaerobic cocci, and Prevotella bivia. She was started on Doxycycline and Flagyl. She is allergic to Levaquin and Sulfa. Discussed with the patient that we may need to do operative debridement and complex secondary wound closure because of the inability to treat the recent cultures with po antibiotics. Hopefully the Acetic Acid dressing changes can help to finish the healing process without surgery. I don't want to go right to IV antibiotics since the ulcers are healing clinically. Also I would want deeper tissue cultures to document the need for IV antibiotics with an operative debridement if necessary. Her Prealbumin from 08/20/18 was 6.9. Encourage nutritional supplementation with protein to help the healing process. Her HgbA1c from 08/02/18 was 6.0. Followup 2 weeks.
== END 2018-12-09 23:59 ==
LOC: WC 10:45
PROVIDERS: Family Provider Family Medicine; Referring Provider Family Medicine; Visit Provider Family Medicine
DX: E11.622 Type 2 diabetes mellitus with other skin ulcer (principal); N61.1 Abscess of the breast and nipple; L02.211 Cutaneous abscess of abdominal wall; F17.200 Nicotine dependence, unspecified, uncomplicated; Z90.12 Acquired absence of left breast and nipple; L98.492 Non-pressure chronic ulcer of skin of other sites with fat layer exposed
CPT/HCPCS: 11042; 11045; 87070; 87075; 87076; 87077; 87186; 87205

== ENCOUNTER 2019-01-03 11:00 | Outpatient (RCR) | payer OTHER, SELFPAY ==
[2017-07-08 11:20] VITALS: BMI 52.1
[2018-12-10 00:45] VITALS: BP 123/70; PULSE 85; RESP 18; TEMP 36.5
[2018-12-20 11:08] VITALS: BP 127/80; PULSE 94; RESP 16; TEMP 36.6; BMI 45.7
--- NOTE | 2018-12-20 15:03 | PCM.WC.PN ---
(1) Ulcer of abdomen wall with fat layer exposed Status: Chronic Code(s): L98.492 - Non-pressure chronic ulcer of skin of other sites with fat layer exposed (2) Abscess of left breast Status: Chronic Code(s): N61.1 - Abscess of the breast and nipple (3) Wound of left breast Status: Chronic Qualifiers: Code(s): S21.002A - Unspecified open wound of left breast, initial encounter (4) Tobacco use disorder Status: Chronic Code(s): F17.200 - Nicotine dependence, unspecified, uncomplicated (5) Morbid obesity Status: Chronic Code(s): E66.01 - Morbid (severe) obesity due to excess calories Type of Wound Date of Service: 12/20/18 Chief Complaint: Nonhealing infected diabetic hematoma ulcer abscesses left medial breast and right lower abdominal wall. History of Wound: Surgery 08/19/18 - 1. Surgical preparation left breast with incision and drainage and excisional debridement nonhealing necrotizing infected diabetic ulcer abscess and completion mastectomy (270 cm2). 2. Surgical preparation right lower abdominal wall with incision and drainage and excisional debridement nonhealing necrotizing infected diabetic ulcer abscess (616 cm2). Her original surgery was on 08/03/18 - 1. Surgical preparation left medial breast with incision and drainage and excisional debridement nonhealing necrotizing infected diabetic hematoma ulcer abscess and partial mastectomy (70 cm2). 2. Surgical preparation right lower abdominal wall with incision and drainage and excisional debridement nonhealing necrotizing infected diabetic hematoma ulcer abscess and abdominal panniculectomy (300 cm2). She was discharged on Ertapenem and her left breast worsened with necrotizing infection which prompted further surgery on 08/19/18. Wound care - Silver to abdominal ulcer and Dakin's to the left breast ulcer. Operative culture - In the right lower abdominal wall - Pseudomonoas aeroginosa, Proteus mirabilis, Enterococcus faecalis, Enterococcus avium, MRSE, and Anaerobic cocci. In the left breast - Pseudomonas aeroginosa, Proteus mirabilis, and Melissa parapsilosis. She was treated with Vancomycin and Meropenem IV and has completed them. She was started on Diflucan and has finished them. She had repeat wound cultures on 11/29/18. The left breast showed Morganella morganii, Pseudonomonas aeroginosa, Staphylococcus cohnii urealyti, Corynebacterium striatum, Anaerobic cocci, and Prevotella disiens. The right lower abdominal wall showed Pseudomonas aeroginosa x2, Staphylococcus aureus, Corynebacterium striatum, Anaerobic cocci, and Prevotella bivia. She was started on Doxycycline and Flagyl. She has completed the Flagyl and will finish Doxycycline in another week. She is allergic to Levaquin and Sulfa. Prealbumin from 08/20/18 was 6.9. Encouraged nutritional supplementation with protein to help the healing process. HgbA1c from 08/02/18 was 6.0. Today she denies fever. Her appetite is ok. Progress of Wound: Improved. - Physical Exam Vital Signs Temp Pulse Resp BP 97.8 F 94 16 127/80 H 12/20/18 11:08 12/20/18 11:08 12/20/18 11:08 12/20/18 11:08 General: Alert, Oriented x3, Cooperative HEENT: Atraumatic Oral: Moist Mucosa Lungs: Normal air movement Cardiovascular: Regular rate Abdomen: Obese Extremities: Capillary Refill Less than 3 Seconds Skin: Ulcer/ Wound - Lower abdomen ulcer is now with skin bridge so will count as separate ulcers. Left breast ulcer. Wound Measurements and Assessment WC - Nurse 1 - General Ulcer Measurement Start: 12/20/18 11:08 Freq: Status: Active Protocol: Activity Type Activity Date Activity User E-Sign Co-Sign Detail Recorded Client Recorded Date Recorded By Document 12/20/18 11:08 [facility] [id number] 12/20/18 11:25 [facility] 12/20/18 11:08 Wound Center Nurse 1 [Ulcer Assessment] #6 LOWER ABD mid -Combined with other wound No -Current Size (cm) - Length 41.3 -Current Size (cm) - Width 1.6 -Current Size (cm) - Depth 1 -Total Square Cm 66.08 -Photo Taken No -Epithelialization None Present -Tunneling No -Undermining/Tunneling No -Circular Undermining No -Exudate Amt Small -Exudate Type Serous -Wound Margin Distinct, Outline Attached -Granulation Amt Small (1-33%) -Granulation Quality [facility] -Slough/Fibrin Yes -Necrosis Amt Large (67-100%) -Necrotic Tissue Type Adherent Slough -Texture (Gabriela-wound Skin Appearance) Assessed, Scarring -Moisture (Gabriela-wound Skin Appearance Assessed ) -Color (Gabriela-wound Skin Appearance) Assessed -Temperature (Gabriela-wound Skin No Abnormality Appearance) (Pt Warm) -Tenderness on Palpation (Gabriela-wound Yes Skin Appearance) -Ulcer Cleansing soapy water -Foul Odor after Cleansing No -Anesthetic Used 4% Lidocaine Solution #5 LEFT BREAST POST OP -Combined with other wound No -Current Size (cm) - Length 13.7 -Current Size (cm) - Width 2.8 -Current Size (cm) - Depth 1.4 -Total Square Cm 38.36 -Photo Taken No -Epithelialization None Present -Tunneling No -Undermining/Tunneling No -Circular Undermining No -Exudate Amt Medium -Exudate Type Serosanguineous -Wound Margin Distinct, Outline Attached -Granulation Amt Medium (34-66%) -Granulation Quality Red -Slough/Fibrin Yes -Necrosis Amt Medium (34-66%) -Necrotic Tissue Type Adherent Slough -Texture (Gabriela-wound Skin Appearance) Assessed, Scarring -Moisture (Gabriela-wound Skin Appearance Assessed ) -Color (Gabriela-wound Skin Appearance) Assessed -Temperature (Gabriela-wound Skin No Abnormality Appearance) (Pt Warm) -Tenderness on Palpation (Gabriela-wound Yes Skin Appearance) -Ulcer Cleansing soapy water -Foul Odor after Cleansing No -Anesthetic Used 4% Lidocaine Solution WC - Nurse 2 - General Ulcer CM Notes Start: 12/20/18 11:08 Freq: Status: Active Protocol: Activity Type Activity Date Activity User E-Sign Co-Sign Detail Recorded Client Recorded Date Recorded By Document 12/20/18 11:38 [facility] [id number] 12/20/18 11:48 [facility] 12/20/18 11:38 Wound Center Nurse 2 [Procedure/Treatment] 8-right abdomen -Time 11:42 -Correct Patient Yes -Correct Side, Site, Position Yes -Correct Procedure Yes -Procedure Performed Yes -Type of Procedure Debridement -Clinical Debridement Subcutaneous -Post Debridement Size (cm) - Length 1.0 -Post Debridement Size (cm) - Width 3.0 -Post Debridement Size (cm) - Depth 1.7 -Total Square Cm 3.00 -Wound/Ulcer Outcome Not Healed -Ulcer Cleansing Rinsed/ Irrigated with Saline -Foul Odor after Cleansing No -Bioengineered Tissue No -Bleeding Controlled with Pressure -Offloading No -Treatment Response Procedure Tolerated Well 7-left side abdomen -Time 11:40 -Correct Patient Yes -Correct Side, Site, Position Yes -Correct Procedure Yes -Procedure Performed Yes -Type of Procedure Debridement -Clinical Debridement Subcutaneous -Post Debridement Size (cm) - Length 0.2 -Post Debridement Size (cm) - Width 1.0 -Post Debridement Size (cm) - Depth 0.1 -Total Square Cm 0.20 -Wound/Ulcer Outcome Not Healed -Ulcer Cleansing Rinsed/ Irrigated with Saline -Foul Odor after Cleansing No -Bioengineered Tissue No -Bleeding Controlled with Pressure -Offloading No -Treatment Response Procedure Tolerated Well #6 LOWER ABD mid -Time 11:38 -Correct Patient Yes -Correct Side, Site, Position Yes -Correct Procedure Yes -Procedure Performed Yes -Type of Procedure Debridement -Clinical Debridement Subcutaneous -Post Debridement Size (cm) - Length 1.8 -Post Debridement Size (cm) - Width 8.5 -Post Debridement Size (cm) - Depth 2.0 -Total Square Cm 15.30 -Wound/Ulcer Outcome Not Healed -Ulcer Cleansing Rinsed/ Irrigated with Saline -Foul Odor after Cleansing No -Bioengineered Tissue No -Bleeding Controlled with Pressure -Offloading No -Treatment Response Procedure Tolerated Well #5 LEFT BREAST POST OP -Time 11:39 -Correct Patient Yes -Correct Side, Site, Position Yes -Correct Procedure Yes -Procedure Performed Yes -Type of Procedure Debridement -Clinical Debridement Subcutaneous -Post Debridement Size (cm) - Length 3.0 -Post Debridement Size (cm) - Width 14.0 -Post Debridement Size (cm) - Depth 1.3 -Total Square Cm 42.00 -Wound/Ulcer Outcome Not Healed -Ulcer Cleansing Rinsed/ Irrigated with Saline -Foul Odor after Cleansing No -Bioengineered Tissue No -Bleeding Controlled with Pressure -Offloading No -Treatment Response Procedure Tolerated Well [See Physician Procedure note for Specifics] Pain Scale: 0-10 Numeric [Pain] -Is Patient Pain Free? No [Location] wounds -Description Sharp -Intensity 10 Query Text:If >3, intervention needed -Duration (hours) Acute -Pain Behavior Facial Grimacing, Screaming, Thrashing -Pain Aggravating Factors Debridement -Alleviating Factors/Interventions Medication -Effectiveness of Alleviating Factor/ Minimally Intervention effective Musculoskeletal: No Muscle Wasting Neurological: Neuro grossly intact Psych/Mental Status: Normal Affect, Appropriate Debridement Note Post-Debridement Measurements/Treatment WC - Nurse 2 - General Ulcer CM Notes Start: 12/20/18 11:08 Freq: Status: Active Protocol: Activity Type Activity Date Activity User E-Sign Co-Sign Detail Recorded Client Recorded Date Recorded By Document 12/20/18 11:38 [id number] 12/20/18 11:48 [facility] 12/20/18 11:38 Wound Center Nurse 2 8-right abdomen -Time 11:42 -Correct Patient Yes -Correct Side, Site, Position Yes -Correct Procedure Yes -Procedure Performed Yes -Type of Procedure Debridement -Clinical Debridement Subcutaneous -Post Debridement Size (cm) - Length 1.0 -Post Debridement Size (cm) - Width 3.0 -Post Debridement Size (cm) - Depth 1.7 -Total Square Cm 3.00 -Wound/Ulcer Outcome Not Healed -Ulcer Cleansing Rinsed/ Irrigated with Saline -Foul Odor after Cleansing No -Bioengineered Tissue No -Bleeding Controlled with Pressure -Offloading No -Treatment Response Procedure Tolerated Well 7-left side abdomen -Time 11:40 -Correct Patient Yes -Correct Side, Site, Position Yes -Correct Procedure Yes -Procedure Performed Yes -Type of Procedure Debridement -Clinical Debridement Subcutaneous -Post Debridement Size (cm) - Length 0.2 -Post Debridement Size (cm) - Width 1.0 -Post Debridement Size (cm) - Depth 0.1 -Total Square Cm 0.20 -Wound/Ulcer Outcome Not Healed -Ulcer Cleansing Rinsed/ Irrigated with Saline -Foul Odor after Cleansing No -Bioengineered Tissue No -Bleeding Controlled with Pressure -Offloading No -Treatment Response Procedure Tolerated Well #6 LOWER ABD mid -Time 11:38 -Correct Patient Yes -Correct Side, Site, Position Yes -Correct Procedure Yes -Procedure Performed Yes -Type of Procedure Debridement -Clinical Debridement Subcutaneous -Post Debridement Size (cm) - Length 1.8 -Post Debridement Size (cm) - Width 8.5 -Post Debridement Size (cm) - Depth 2.0 -Total Square Cm 15.30 -Wound/Ulcer Outcome Not Healed -Ulcer Cleansing Rinsed/ Irrigated with Saline -Foul Odor after Cleansing No -Bioengineered Tissue No -Bleeding Controlled with Pressure -Offloading No -Treatment Response Procedure Tolerated Well #5 LEFT BREAST POST OP -Time 11:39 -Correct Patient Yes -Correct Side, Site, Position Yes -Correct Procedure Yes -Procedure Performed Yes -Type of Procedure Debridement -Clinical Debridement Subcutaneous -Post Debridement Size (cm) - Length 3.0 -Post Debridement Size (cm) - Width 14.0 -Post Debridement Size (cm) - Depth 1.3 -Total Square Cm 42.00 -Wound/Ulcer Outcome Not Healed -Ulcer Cleansing Rinsed/ Irrigated with Saline -Foul Odor after Cleansing No -Bioengineered Tissue No -Bleeding Controlled with Pressure -Offloading No -Treatment Response Procedure Tolerated Well Pain Scale: 0-10 Numeric Is Patient Pain Free? No wounds -Description Sharp -Intensity 10 Query Text:If >3, intervention needed -Duration (hours) Acute -Pain Behavior Facial Grimacing, Screaming, Thrashing -Pain Aggravating Factors Debridement -Alleviating Factors/Interventions Medication -Effectiveness of Alleviating Factor/ Minimally Intervention effective Wound debrided: lower abdominal ulcers Type of Debridement: Excisional debridement Anesthesia Used: 5% Lidocaine Gel Depth: Down to and including healthy tissue, in the subcutaneous layer Percentage of wound debrided: 100 Instrument Used: 3mm curette Tissue Removed: subcutaneous tissue and slough Severity: Fat Layer Exposed Amount of bleeding with debridement: Mild Bleeding Controlled with: Pressure, Compression and gauze Patient tolerated procedure well - Additional Wound Wound debrided: breast ulcer Laterality: Left Type of Debridement: Excisional debridement Anesthesia Used: 5% Lidocaine Gel Depth: Down to and including healthy tissue, in the subcutaneous layer Percentage of wound debrided: 100 Instrument Used: 7mm curette Tissue Removed: subcutaneous tissue and slough Severity: Fat Layer Exposed Amount of bleeding with debridement: Moderate Bleeding Controlled with: Pressure, Compression and gauze Assessment/Plan Assessment: 1. 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 2. Nonhealing necrotizing infected diabetic ulcer abscess right lower abdominal wall. 3. Hematoma left medial breast, sequela. 4. Hematoma right lower abdominal wall, sequela. 5. Diabetes mellitus. 6. Smoker. 7. s/p surgical preparation left breast with incision and drainage and excisional debridement nonhealing necrotizing infected diabetic ulcer abscess and completion mastectomy (270 cm2) and surgical preparation right lower abdominal wall with incision and drainage and excisional debridement nonhealing necrotizing infected diabetic ulcer abscess (616 cm2). Plan: The ulcers are improving. Continue the Silver dressing to the ulcers of the lower abdominal wall. Candelariain's solution to the left breast. Pseudomonas from her recent culture on 11/29/18. The left breast culture showed Morganella morganii, Pseudomonas aeroginosa, Staphylococcus cohnii urealyti, Corynebacterium striatum, Anaerobic cocci, and Prevotella disiens. The right lower abdominal wall culture showed Pseudomonas aeroginosa x2, Staphylococcus aureus, Corynebacterium striatum, Anaerobic cocci, and Prevotella bivia. She was started on Doxycycline and Flagyl. She has finished the Flagyl and has another week of the Doxycycline. She is allergic to Levaquin and Sulfa. Discussed with the patient that we may need to do operative debridement and complex secondary wound closure because of the inability to treat the recent cultures with po antibiotics. Hopefully the Acetic Acid dressing changes can help to finish the healing process without surgery. I don't want to go right to IV antibiotics since the ulcers are healing clinically. Also I would want deeper tissue cultures to document the need for IV antibiotics with an operative debridement if necessary. Her Prealbumin from 08/20/18 was 6.9. Encourage nutritional supplementation with protein to help the healing process. Her HgbA1c from 08/02/18 was 6.0. Followup 2 weeks.
[2019-01-03 11:05] VITALS: BP 146/80; PULSE 82; RESP 20; TEMP 36.5; BMI 45.7
--- NOTE | 2019-01-03 14:14 | PN.PCM_ITS ---
(1) Ulcer of abdomen wall with fat layer exposed Status: Chronic Code(s): L98.492 - Non-pressure chronic ulcer of skin of other sites with fat layer exposed (2) Abscess of left breast Status: Chronic Code(s): N61.1 - Abscess of the breast and nipple (3) Wound of left breast Status: Chronic Qualifiers: Code(s): S21.002A - Unspecified open wound of left breast, initial encounter (4) Tobacco use disorder Status: Chronic Code(s): F17.200 - Nicotine dependence, unspecified, uncomplicated (5) Morbid obesity Status: Chronic Code(s): E66.01 - Morbid (severe) obesity due to excess calories Type of Wound Date of Service: 01/03/19 Chief Complaint: Nonhealing infected diabetic hematoma ulcer abscesses left medial breast and right lower abdominal wall. History of Wound: Surgery 08/19/18 - 1. Surgical preparation left breast with incision and drainage and excisional debridement nonhealing necrotizing infected diabetic ulcer abscess and completion mastectomy (270 cm2). 2. Surgical preparation right lower abdominal wall with incision and drainage and excisional debridement nonhealing necrotizing infected diabetic ulcer abscess (616 cm2). Her original surgery was on 08/03/18 - 1. Surgical preparation left medial breast with incision and drainage and excisional debridement nonhealing necrotizing infected diabetic hematoma ulcer abscess and partial mastectomy (70 cm2). 2. Surgical preparation right lower abdominal wall with incision and drainage and excisional debridement nonhealing necrotizing infected diabetic hematoma ulcer abscess and abdominal panniculectomy (300 cm2). She was discharged on Ertapenem and her left breast worsened with necrotizing infection which prompted further surgery on 08/19/18. Wound care - Silver to abdominal ulcer and Dakin's to the left breast ulcer. Operative culture - In the right lower abdominal wall - Pseudomonoas aeroginosa, Proteus mirabilis, Enterococcus faecalis, Enterococcus avium, MRSE, and Anaerobic cocci. In the left breast - Pseudomonas aeroginosa, Proteus mirabilis, and Melissa parapsilosis. She was treated with Vancomycin and Meropenem IV and has completed them. She was starte d on Diflucan and has finished them. She had repeat wound cultures on 11/29/18. The left breast showed Morganella morganii, Pseudonomonas aeroginosa, Staphylococcus cohnii urealyti, Corynebacterium striatum, Anaerobic cocci, and Prevotella disiens. The right lower abdominal wall showed Pseudomonas aeroginosa x2, Staphylococcus aureus, Corynebacterium striatum, Anaerobic cocci, and Prevotella bivia. She was started on Doxycycline and Flagyl. She has completed the Flagyl and will finish Doxycycline in another week. She is allergic to Levaquin and Sulfa. Prealbumin from 08/20/18 was 6.9. Encouraged nutritional supplementation with protein to help the healing process. HgbA1c from 08/02/18 was 6.0. Today she denies fever. Her appetite is ok. Progress of Wound: Improved. - Physical Exam Vital Signs Temp Pulse Resp BP 97.7 F L 82 20 H 146/80 H 01/03/19 11:05 01/03/19 11:05 01/03/19 11:05 01/03/19 11:05 General: Alert, Oriented x3, Cooperative HEENT: Atraumatic Oral: Moist Mucosa Lungs: Normal air movement Cardiovascular: Regular rate Abdomen: Soft, Obese Extremities: Capillary Refill Less than 3 Seconds Skin: Ulcer/ Wound - left breast wound and lower abdominal ulcer Wound Measurements and Assessment WC - Nurse 1 - General Ulcer Measurement Start: 12/20/18 11:08 Freq: Status: Active Protocol: Activity Type Activity Date Activity User E-Sign Co-Sign Detail Recorded Client Recorded Date Recorded By Document 01/03/19 11:05 [facility] [id number] 01/03/19 11:23 [facility] 01/03/19 11:05 Wound Center Nurse 1 [Ulcer Assessment] 8-right abdomen -Combined with other wound No -Current Size (cm) - Length 0.5 -Current Size (cm) - Width 3.2 -Current Size (cm) - Depth 0.1 -Total Square Cm 1.60 -Photo Taken No -Epithelialization Small 1-33% -Tunneling No -Undermining/Tunneling No -Circular Undermining No -Exudate Amt Small -Exudate Type Serosanguineous -Wound Margin Flat & Intact -Granulation Amt Small (1-33%) -Granulation Quality Red -Slough/Fibrin Yes -Necrosis Amt Medium (34-66%) -Necrotic Tissue Type Adherent Slough -Texture (Gabriela-wound Skin Appearance) Assessed, Scarring -Moisture (Gabriela-wound Skin Appearance Assessed ) -Color (Gabriela-wound Skin Appearance) Assessed, Erythema -Temperature (Gabriela-wound Skin No Abnormality Appearance) (Pt Warm) -Tenderness on Palpation (Gabriela-wound No Skin Appearance) -Ulcer Cleansing Rinsed/ Irrigated with Saline -Foul Odor after Cleansing No -Anesthetic Used 5% Lidocaine Gel 7-left side abdomen -Combined with other wound No -Current Size (cm) - Length 0.1 -Current Size (cm) - Width 0.1 -Current Size (cm) - Depth 0.1 -Total Square Cm 0.01 -Photo Taken No -Epithelialization Large 67-100% -Tunneling No -Undermining/Tunneling No -Circular Undermining No -Exudate Amt None Present -Texture (Gabriela-wound Skin Appearance) Assessed, Scarring -Moisture (Gabriela-wound Skin Appearance Assessed,Dry/ ) Scaly -Color (Gabriela-wound Skin Appearance) Assessed -Temperature (Gabriela-wound Skin No Abnormality Appearance) (Pt Warm) -Tenderness on Palpation (Gabriela-wound No Skin Appearance) -Ulcer Cleansing Rinsed/ Irrigated with Saline -Foul Odor after Cleansing No -Anesthetic Used 5% Lidocaine Gel #6 LOWER ABD mid -Combined with other wound No -Current Size (cm) - Length 1.4 -Current Size (cm) - Width 8.8 -Current Size (cm) - Depth 0.1 -Total Square Cm 12.32 -Photo Taken No -Epithelialization Small 1-33% -Tunneling No -Undermining/Tunneling No -Circular Undermining No -Exudate Amt Small -Exudate Type Serosanguineous -Wound Margin Flat & Intact -Granulation Amt Small (1-33%) -Granulation Quality Red -Slough/Fibrin Yes -Necrosis Amt Medium (34-66%) -Necrotic Tissue Type Adherent Slough -Texture (Gabriela-wound Skin Appearance) Assessed, Scarring -Moisture (Gabriela-wound Skin Appearance Assessed,Dry/ ) Scaly -Color (Gabriela-wound Skin Appearance) Assessed, Erythema -Temperature (Gabriela-wound Skin No Abnormality Appearance) (Pt Warm) -Tenderness on Palpation (Gabriela-wound Yes Skin Appearance) -Ulcer Cleansing Rinsed/ Irrigated with Saline -Foul Odor after Cleansing No -Anesthetic Used 5% Lidocaine Gel #5 LEFT BREAST POST OP -Combined with other wound No -Current Size (cm) - Length 2.5 -Current Size (cm) - Width 12.7 -Current Size (cm) - Depth 1 -Total Square Cm 31.75 -Photo Taken No -Epithelialization None Present -Tunneling No -Undermining/Tunneling No -Circular Undermining No -Exudate Amt Medium -Exudate Type Serosanguineous -Wound Margin Distinct, Outline Attached -Granulation Amt Small (1-33%) -Granulation Quality Red -Slough/Fibrin Yes -Necrosis Amt Medium (34-66%) -Necrotic Tissue Type Adherent Slough -Texture (Gabriela-wound Skin Appearance) Assessed, Scarring -Moisture (Gabriela-wound Skin Appearance Assessed ) -Color (Gabriela-wound Skin Appearance) Assessed, Erythema -Temperature (Gabriela-wound Skin No Abnormality Appearance) (Pt Warm) -Tenderness on Palpation (Gabriela-wound Yes Skin Appearance) -Ulcer Cleansing Rinsed/ Irrigated with Saline -Foul Odor after Cleansing No -Anesthetic Used 4% Lidocaine Solution WC - Nurse 2 - General Ulcer CM Notes Start: 12/20/18 11:08 Freq: Status: Active Protocol: Activity Type Activity Date Activity User E-Sign Co-Sign Detail Recorded Client Recorded Date Recorded By Document 01/03/19 11:46 [facility] [id number] 01/03/19 11:57 [facility] 01/03/19 11:46 Wound Center Nurse 2 [Procedure/Treatment] 8-right abdomen -Time 11:51 -Correct Patient Yes -Correct Side, Site, Position Yes -Correct Procedure Yes -Procedure Performed Yes -Type of Procedure Debridement -Clinical Debridement Subcutaneous -Post Debridement Size (cm) - Length 1.0 -Post Debridement Size (cm) - Width 4.5 -Post Debridement Size (cm) - Depth 1.0 -Total Square Cm 4.50 -Wound/Ulcer Outcome Not Healed -Ulcer Cleansing Rinsed/ Irrigated with Saline -Foul Odor after Cleansing No -Bioengineered Tissue No -Bleeding Controlled with Pressure -Offloading No -Treatment Response Procedure Tolerated Well 7-left side abdomen -Correct Patient No -Correct Side, Site, Position No -Correct Procedure No -Procedure Performed No -Post Debridement Size (cm) - Length 0 -Post Debridement Size (cm) - Width 0 -Post Debridement Size (cm) - Depth 0 -Total Square Cm 0 -Wound/Ulcer Outcome Healed- Epithelialized #6 LOWER ABD mid -Time 11:51 -Correct Patient Yes -Correct Side, Site, Position Yes -Correct Procedure Yes -Procedure Performed Yes -Type of Procedure Debridement -Clinical Debridement Subcutaneous -Post Debridement Size (cm) - Length 2 -Post Debridement Size (cm) - Width 9 -Post Debridement Size (cm) - Depth 0.9 -Total Square Cm 18 -Wound/Ulcer Outcome Not Healed -Ulcer Cleansing Rinsed/ Irrigated with Saline -Foul Odor after Cleansing No -Bioengineered Tissue No -Bleeding Controlled with Pressure -Offloading No -Treatment Response Procedure Tolerated Well #5 LEFT BREAST POST OP -Time 11:47 -Correct Patient Yes -Correct Side, Site, Position Yes -Correct Procedure Yes -Procedure Performed Yes -Type of Procedure Debridement -Clinical Debridement Subcutaneous -Post Debridement Size (cm) - Length 2.0 -Post Debridement Size (cm) - Width 12.5 -Post Debridement Size (cm) - Depth 1.1 -Total Square Cm 25.00 -Wound/Ulcer Outcome Not Healed -Ulcer Cleansing Rinsed/ Irrigated with Saline -Foul Odor after Cleansing No -Bioengineered Tissue No -Bleeding Controlled with Pressure -Offloading No -Treatment Response Procedure Tolerated Well [See Physician Procedure note for Specifics] Pain Scale: 0-10 Numeric [Pain] -Is Patient Pain Free? Yes Musculoskeletal: No Muscle Wasting Neurological: Neuro grossly intact Psych/Mental Status: Normal Affect, Anxious Debridement Note Post-Debridement Measurements/Treatment WC - Nurse 2 - General Ulcer CM Notes Start: 12/20/18 11:08 Freq: Status: Active Protocol: Activity Type Activity Date Activity User E-Sign Co-Sign Detail Recorded Client Recorded Date Recorded By Document 12/20/18 11:38 [id number] 12/20/18 11:48 Document 01/03/19 11:46 [id number] 01/03/19 11:57 12/20/18 01/03/19 11:38 11:46 Wound Center Nurse 2 8-right abdomen -Time 11:42 11:51 -Correct Patient Yes Yes -Correct Side, Site, Position Yes Yes -Correct Procedure Yes Yes -Procedure Performed Yes Yes -Type of Procedure Debridement Debridement -Clinical Debridement Subcutaneous Subcutaneous -Post Debridement Size (cm) - Length 1.0 1.0 -Post Debridement Size (cm) - Width 3.0 4.5 -Post Debridement Size (cm) - Depth 1.7 1.0 -Total Square Cm 3.00 4.50 -Wound/Ulcer Outcome Not Healed Not Healed -Ulcer Cleansing Rinsed/ Rinsed/ Irrigated with Irrigated with Saline Saline -Foul Odor after Cleansing No No -Bioengineered Tissue No No -Bleeding Controlled with Pressure Pressure -Offloading No No -Treatment Response Procedure Procedure Tolerated Well Tolerated Well 7-left side abdomen -Time 11:40 -Correct Patient Yes No -Correct Side, Site, Position Yes No -Correct Procedure Yes No -Procedure Performed Yes No -Type of Procedure Debridement -Clinical Debridement Subcutaneous -Post Debridement Size (cm) - Length 0.2 0 -Post Debridement Size (cm) - Width 1.0 0 -Post Debridement Size (cm) - Depth 0.1 0 -Total Square Cm 0.20 0 -Wound/Ulcer Outcome Not Healed Healed- Epithelialized -Ulcer Cleansing Rinsed/ Irrigated with Saline -Foul Odor after Cleansing No -Bioengineered Tissue No -Bleeding Controlled with Pressure -Offloading No -Treatment Response Procedure Tolerated Well #6 LOWER ABD mid -Time 11:38 11:51 -Correct Patient Yes Yes -Correct Side, Site, Position Yes Yes -Correct Procedure Yes Yes -Procedure Performed Yes Yes -Type of Procedure Debridement Debridement -Clinical Debridement Subcutaneous Subcutaneous -Post Debridement Size (cm) - Length 1.8 2 -Post Debridement Size (cm) - Width 8.5 9 -Post Debridement Size (cm) - Depth 2.0 0.9 -Total Square Cm 15.30 18 -Wound/Ulcer Outcome Not Healed Not Healed -Ulcer Cleansing Rinsed/ Rinsed/ Irrigated with Irrigated with Saline Saline -Foul Odor after Cleansing No No -Bioengineered Tissue No No -Bleeding Controlled with Pressure Pressure -Offloading No No -Treatment Response Procedure Procedure Tolerated Well Tolerated Well #5 LEFT BREAST POST OP -Time 11:39 11:47 -Correct Patient Yes Yes -Correct Side, Site, Position Yes Yes -Correct Procedure Yes Yes -Procedure Performed Yes Yes -Type of Procedure Debridement Debridement -Clinical Debridement Subcutaneous Subcutaneous -Post Debridement Size (cm) - Length 3.0 2.0 -Post Debridement Size (cm) - Width 14.0 12.5 -Post Debridement Size (cm) - Depth 1.3 1.1 -Total Square Cm 42.00 25.00 -Wound/Ulcer Outcome Not Healed Not Healed -Ulcer Cleansing Rinsed/ Rinsed/ Irrigated with Irrigated with Saline Saline -Foul Odor after Cleansing No No -Bioengineered Tissue No No -Bleeding Controlled with Pressure Pressure -Offloading No No -Treatment Response Procedure Procedure Tolerated Well Tolerated Well Pain Scale: 0-10 Numeric Is Patient Pain Free? No Yes R abd wound -Description Sharp -Intensity 10 -Duration (hours) Acute -Pain Behavior Facial Grimacing, Screaming, Thrashing -Pain Aggravating Factors Debridement -Alleviating Factors/Interventions Medication -Effectiveness of Alleviating Factor/ Minimally Intervention effective Wound debrided: breast wound Laterality: Left Type of Debridement: Excisional debridement Anesthesia Used: 5% Lidocaine Gel Depth: Down to and including healthy tissue, in the subcutaneous layer Percentage of wound debrided: 100 Instrument Used: 7mm curette Tissue Removed: subcutaneous tissue and slough Severity: Fat Layer Exposed Amount of bleeding with debridement: Moderate Bleeding Controlled with: Pressure, Compression and gauze Patient tolerated procedure well patient continues to have a lot of pain with debridements - Additional Wound Wound debrided: right and mid lower abdomen Laterality: Right Type of Debridement: Excisional debridement Anesthesia Used: 5% Lidocaine Gel Depth: Down to and including healthy tissue, in the subcutaneous layer Percentage of wound debrided: 100 Instrument Used: 5mm curette Tissue Removed: subcutaneous tissue and slough Severity: Fat Layer Exposed Amount of bleeding with debridement: Mild Bleeding Controlled with: Pressure, Compression and gauze Patient tolerated procedure: Patient did not tolerate procedure well Assessment/Plan Assessment: 1. 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 2. Nonhealing necrotizing infected diabetic ulcer abscess right lower abdominal wall. 3. Hematoma left medial breast, sequela. 4. Hematoma right lower abdominal wall, sequela. 5. Diabetes mellitus. 6. Smoker. 7. s/p surgical preparation left breast with incision and drainage and excisional debridement nonhealing necrotizing infected diabetic ulcer abscess and completion mastectomy (270 cm2) and surgical preparation right lower abdominal wall with incision and drainage and excisional debridement nonhealing necrotizing infected diabetic ulcer abscess (616 cm2). Plan: The ulcers are improving. Continue the Silver dressing to the ulcers of the lower abdominal wall, will place Nugauze in the tunnels and top with silver. Dakin's solution to the left breast. Pseudomonas from her recent culture on 11/29/18. The left breast culture showed Morganella morganii, Pseudomonas aeroginosa, Staphylococcus cohnii urealyti, Corynebacterium striatum, Anaerobic cocci, and Prevotella disiens. The right lower abdominal wall culture showed Pseudomonas aeroginosa x2, Staphylococcus aureus, Corynebacterium striatum, Anaerobic cocci, and Prevotella bivia. She was started on Doxycycline and Flagyl. She has finished the Flagyl and has another week of the Doxycycline. She is allergic to Levaquin and Sulfa. Discussed with the patient that we may need to do operative debridement and complex secondary wound closure because of the inability to treat the recent cultures with po antibiotics. I don't want to go right to IV antibiotics since the ulcers are healing clinically. Also I would want deeper tissue cultures to document the need for IV antibiotics with an operative debridement if necessary. Her Prealbumin from 08/20/18 was 6.9. Encourage nutritional supplementation with protein to help the healing process. Encouraged her to stop smoking as it can have a deleterious impact on wound healing. Ordered given for her to get fitted for a prosthesis for her left breast. Her HgbA1c from 08/02/18 was 6.0. Followup 2 weeks. Code Visit 111xxx-113xx: [id number] Poppy subq tissue 20 sq cm/< Add On Codes: 96429 Poppy subq tissue add-on - x2
== END 2019-01-08 23:59 ==
LOC: WC 11:00
PROVIDERS: Family Provider Family Medicine; Referring Provider Family Medicine; Visit Provider Family Medicine
DX: E11.622 Type 2 diabetes mellitus with other skin ulcer (principal); N61.1 Abscess of the breast and nipple; F17.200 Nicotine dependence, unspecified, uncomplicated; L98.492 Non-pressure chronic ulcer of skin of other sites with fat layer exposed; E66.01 Morbid (severe) obesity due to excess calories; Z71.3 Dietary counseling and surveillance; L02.211 Cutaneous abscess of abdominal wall
CPT/HCPCS: 11042; 11045

== ENCOUNTER 2019-02-07 10:30 | Outpatient (RCR) | payer OTHER, SELFPAY ==
[2017-07-08 11:20] VITALS: BMI 52.1
[2019-01-09 00:37] VITALS: BP 146/80; PULSE 82; RESP 20; TEMP 36.5
[2019-01-24 11:19] VITALS: BP 129/78; PULSE 18; RESP 18; TEMP 35.9; BMI 45.7
--- NOTE | 2019-01-24 17:56 | PN.PCM_ITS ---
Type of Wound Date of Service: 01/24/19 Chief Complaint: Nonhealing infected diabetic hematoma ulcer abscesses left medial breast and right lower abdominal wall. History of Wound: Surgery 08/19/18 - 1. Surgical preparation left breast with incision and drainage and excisional debridement nonhealing necrotizing infected diabetic ulcer abscess and completion mastectomy (270 cm2). 2. Surgical preparation right lower abdominal wall with incision and drainage and excisional debridement nonhealing necrotizing infected diabetic ulcer abscess (616 cm2). Her original surgery was on 08/03/18 - 1. Surgical preparation left medial breast with incision and drainage and excisional debridement nonhealing necrotizing infected diabetic hematoma ulcer abscess and partial mastectomy (70 cm2). 2. Surgical preparation right lower abdominal wall with incision and drainage and excisional debridement nonhealing necrotizing infected diabetic hematoma ulcer abscess and abdominal panniculectomy (300 cm2). She was discharged on Ertapenem and her left breast worsened with necrotizing infection which prompted further surgery on 08/19/18. Wound care - Silver dressing changes in the abdomen and Dakin's dressing changes in the left breast. Operative culture - In the right lower abdominal wall - Pseudomonoas aeroginosa, Proteus mirabilis, Enterococcus faecalis, Enterococcus avium, MRSE, and Anaerobic cocci. In the left breast - Pseudomonas aeroginosa, Proteus mirabilis, and Melissa parapsilosis. She was treated with Vancomycin and Meropenem IV and has completed them. She was started on Diflucan and has finished them. She had repeat wound cultures on 11/29/18. The left breast showed Morganella morganii, Pseudonomonas aeroginosa, Staphylococcus cohnii urealyti, Corynebacterium striatum, Anaerobic cocci, and Prevotella disiens. The right lower abdominal wall showed Pseudomonas aeroginosa x2, Staphylococcus aureus, Corynebacterium striatum, Anaerobic cocci, and Prevotella bivia. She was started on Doxycycline and Flagyl. She is allergic to Levaquin and Sulfa. Prealbumin from 08/20/18 was 6.9. Encouraged nutritional supplementation with protein to help the healing process. HgbA1c from 08/02/18 was 6.0. Today she denies fever. Her appetite is ok. Progress of Wound: Improved. - Physical Exam Vital Signs Temp Pulse Resp BP 96.6 F L 18 L 18 129/78 H 01/24/19 11:19 01/24/19 11:19 01/24/19 11:19 01/24/19 11:19 Wound Measurements and Assessment WC - Nurse 1 - General Ulcer Measurement Start: 01/24/19 11:18 Freq: Status: Active Protocol: Activity Type Activity Date Activity User E-Sign Co-Sign Detail Recorded Client Recorded Date Recorded By Document 01/24/19 11:19 MW [id number] 01/24/19 11:36 MW 01/24/19 11:19 Wound Center Nurse 1 [Ulcer Assessment] 8-right abdomen -Current Size (cm) - Length 0.6 -Current Size (cm) - Width 3.5 -Current Size (cm) - Depth 0.2 -Total Square Cm 2.10 -Photo Taken No -Epithelialization None Present -Tunneling No -Undermining/Tunneling No -Circular Undermining No -Exudate Amt Small -Exudate Type Serosanguineous -Wound Margin Distinct, Outline Attached -Granulation Amt None Present (0 %) -Granulation Quality N/A -Slough/Fibrin Yes -Necrosis Amt Large (67-100%) -Necrotic Tissue Type Adherent Slough -Structure Exposed N/A -Texture (Gabriela-wound Skin Appearance) Assessed, Scarring -Moisture (Gabriela-wound Skin Appearance No Abnormality, ) Assessed -Color (Gabriela-wound Skin Appearance) No Abnormality, Assessed -Temperature (Gabriela-wound Skin No Abnormality Appearance) (Pt Warm) -Tenderness on Palpation (Gabriela-wound Yes Skin Appearance) -Ulcer Cleansing soap and water -Foul Odor after Cleansing No -Anesthetic Used 5% Lidocaine Gel #6 LOWER ABD mid -Combined with other wound No -Current Size (cm) - Length 1.6 -Current Size (cm) - Width 7.0 -Current Size (cm) - Depth 0.1 -Total Square Cm 11.20 -Photo Taken No -Tunneling No -Undermining/Tunneling No -Circular Undermining No -Exudate Amt Small -Exudate Type Serosanguineous -Wound Margin Flat & Intact -Granulation Amt Small (1-33%) -Granulation Quality [place] -Slough/Fibrin Yes -Necrosis Amt Medium (34-66%) -Necrotic Tissue Type Adherent Slough -Structure Exposed N/A -Texture (Gabriela-wound Skin Appearance) Assessed, Scarring -Moisture (Gabriela-wound Skin Appearance No Abnormality, ) Assessed -Color (Gabriela-wound Skin Appearance) No Abnormality, Assessed -Temperature (Gabriela-wound Skin No Abnormality Appearance) (Pt Warm) -Tenderness on Palpation (Gabriela-wound Yes Skin Appearance) -Ulcer Cleansing soap and water -Foul Odor after Cleansing No -Anesthetic Used 5% Lidocaine Gel #5 LEFT BREAST POST OP -Combined with other wound No -Current Size (cm) - Length 2.0 -Current Size (cm) - Width 10.5 -Current Size (cm) - Depth 1.5 -Total Square Cm 21.00 -Photo Taken No -Epithelialization Small 1-33% -Tunneling No -Undermining/Tunneling No -Circular Undermining No -Exudate Amt Medium -Exudate Type Serosanguineous -Wound Margin Flat & Intact -Granulation Amt Medium (34-66%) -Granulation Quality [place] -Slough/Fibrin Yes -Necrosis Amt Medium (34-66%) -Necrotic Tissue Type Adherent Slough -Structure Exposed Fat Layer Exposed -Texture (Gabriela-wound Skin Appearance) Assessed, Scarring -Moisture (Gabriela-wound Skin Appearance No Abnormality, ) Assessed -Color (Gabriela-wound Skin Appearance) No Abnormality, Assessed -Temperature (Gabriela-wound Skin No Abnormality Appearance) (Pt Warm) -Tenderness on Palpation (Gabriela-wound Yes Skin Appearance) -Ulcer Cleansing soap and water -Foul Odor after Cleansing No -Anesthetic Used 5% Lidocaine Gel [Edema Assessment] -Lower Limb Edema Present No WC - Nurse 2 - General Ulcer CM Notes Start: 01/24/19 11:18 Freq: Status: Active Protocol: Activity Type Activity Date Activity User E-Sign Co-Sign Detail Recorded Client Recorded Date Recorded By Document 01/24/19 12:08 BILLIE [id number] 01/24/19 12:17 BILLIE 01/24/19 12:08 Wound Center Nurse 2 [Procedure/Treatment] 8-right abdomen -Time 12:08 -Correct Patient Yes -Correct Side, Site, Position Yes -Correct Procedure Yes -Procedure Performed Yes -Type of Procedure Debridement -Clinical Debridement Subcutaneous -Post Debridement Size (cm) - Length 0.5 -Post Debridement Size (cm) - Width 1.2 -Post Debridement Size (cm) - Depth 0.2 -Total Square Cm 0.60 -Wound/Ulcer Outcome Not Healed -Ulcer Cleansing Rinsed/ Irrigated with Saline -Foul Odor after Cleansing No -Bioengineered Tissue No -Bleeding Controlled with Pressure -Offloading No -Treatment Response Procedure Tolerated Well #6 LOWER ABD mid -Time 12:09 -Correct Patient Yes -Correct Side, Site, Position Yes -Correct Procedure Yes -Procedure Performed Yes -Type of Procedure Debridement -Clinical Debridement Subcutaneous -Post Debridement Size (cm) - Length 1.8 -Post Debridement Size (cm) - Width 6.8 -Post Debridement Size (cm) - Depth 0.2 -Total Square Cm 12.24 -Wound/Ulcer Outcome Not Healed -Ulcer Cleansing Rinsed/ Irrigated with Saline -Foul Odor after Cleansing No -Bioengineered Tissue No -Bleeding Controlled with Pressure -Offloading No -Treatment Response Procedure Tolerated Well #5 LEFT BREAST POST OP -Time 12:09 -Correct Patient Yes -Correct Side, Site, Position Yes -Correct Procedure Yes -Procedure Performed Yes -Type of Procedure Debridement -Clinical Debridement Subcutaneous -Post Debridement Size (cm) - Length 1.7 -Post Debridement Size (cm) - Width 10.5 -Post Debridement Size (cm) - Depth 0.4 -Total Square Cm 17.85 -Wound/Ulcer Outcome Not Healed -Ulcer Cleansing Rinsed/ Irrigated with Saline -Foul Odor after Cleansing No -Bioengineered Tissue No -Bleeding Controlled with Pressure -Offloading No -Treatment Response Procedure Tolerated Well [See Physician Procedure note for Specifics] Pain Scale: 0-10 Numeric [Pain] -Is Patient Pain Free? Yes Debridement Note Post-Debridement Measurements/Treatment WC - Nurse 2 - General Ulcer CM Notes Start: 01/24/19 11:18 Freq: Status: Active Protocol: Activity Type Activity Date Activity User E-Sign Co-Sign Detail Recorded Client Recorded Date Recorded By Document 01/24/19 12:08 BILLIE [id number] 01/24/19 12:17 BILLIE 01/24/19 12:08 Wound Center Nurse 2 8-right abdomen -Time 12:08 -Correct Patient Yes -Correct Side, Site, Position Yes -Correct Procedure Yes -Procedure Performed Yes -Type of Procedure Debridement -Clinical Debridement Subcutaneous -Post Debridement Size (cm) - Length 0.5 -Post Debridement Size (cm) - Width 1.2 -Post Debridement Size (cm) - Depth 0.2 -Total Square Cm 0.60 -Wound/Ulcer Outcome Not Healed -Ulcer Cleansing Rinsed/ Irrigated with Saline -Foul Odor after Cleansing No -Bioengineered Tissue No -Bleeding Controlled with Pressure -Offloading No -Treatment Response Procedure Tolerated Well #6 LOWER ABD mid -Time 12:09 -Correct Patient Yes -Correct Side, Site, Position Yes -Correct Procedure Yes -Procedure Performed Yes -Type of Procedure Debridement -Clinical Debridement Subcutaneous -Post Debridement Size (cm) - Length 1.8 -Post Debridement Size (cm) - Width 6.8 -Post Debridement Size (cm) - Depth 0.2 -Total Square Cm 12.24 -Wound/Ulcer Outcome Not Healed -Ulcer Cleansing Rinsed/ Irrigated with Saline -Foul Odor after Cleansing No -Bioengineered Tissue No -Bleeding Controlled with Pressure -Offloading No -Treatment Response Procedure Tolerated Well #5 LEFT BREAST POST OP -Time 12:09 -Correct Patient Yes -Correct Side, Site, Position Yes -Correct Procedure Yes -Procedure Performed Yes -Type of Procedure Debridement -Clinical Debridement Subcutaneous -Post Debridement Size (cm) - Length 1.7 -Post Debridement Size (cm) - Width 10.5 -Post Debridement Size (cm) - Depth 0.4 -Total Square Cm 17.85 -Wound/Ulcer Outcome Not Healed -Ulcer Cleansing Rinsed/ Irrigated with Saline -Foul Odor after Cleansing No -Bioengineered Tissue No -Bleeding Controlled with Pressure -Offloading No -Treatment Response Procedure Tolerated Well Pain Scale: 0-10 Numeric Is Patient Pain Free? Yes Wound debrided: #5 Left breast. Laterality: Left Wound Grade/Stage: 2. Type of Debridement: Excisional debridement Anesthesia Used: 4% Lidocaine Solution Depth: Down to and including healthy tissue, in the subcutaneous layer Percentage of wound debrided: 100 Instrument Used: 3mm curette Tissue Removed: subcutaneous tissue. Severity: Fat Layer Exposed Amount of bleeding with debridement: Mild Bleeding Controlled with: Pressure Patient tolerated procedure well - Additional Wound Wound debrided: #6 Right lower abdominal wall. Laterality: Right Wound Grade/Stage: 2. Type of Debridement: Excisional debridement Anesthesia Used: 4% Lidocaine Solution Depth: Down to and including healthy tissue, in the subcutaneous layer Percentage of wound debrided: 100 Instrument Used: 3mm curette Tissue Removed: subcutaneous tissue. Severity: Fat Layer Exposed Amount of bleeding with debridement: Mild Bleeding Controlled with: Pressure Patient tolerated procedure: Patient tolerated procedure well Assessment/Plan Assessment: 1. 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 2. Nonhealing necrotizing infected diabetic ulcer abscess right lower abdominal wall. 3. Hematoma left medial breast, sequela. 4. Hematoma right lower abdominal wall, sequela. 5. Diabetes mellitus. 6. Smoker. 7. s/p surgical preparation left breast with incision and drainage and excisional debridement nonhealing necrotizing infected diabetic ulcer abscess and completion mastectomy (270 cm2) and surgical preparation right lower abdominal wall with incision and drainage and excisional debridement nonhealing necrotizing infected diabetic ulcer abscess (616 cm2). Plan: The ulcers are improving. Continue the Silver dressing to the right lower abdominal wall and Dakin's to the left breast. The Acetic Acid dressing changes have been completed. The left breast culture showed Morganella morganii, Pseudomonas aeroginosa, Staphylococcus cohnii urealyti, Corynebacterium striatum, Anaerobic cocci, and Prevotella disiens. The right lower abdominal wall culture showed Pseudomonas aeroginosa x2, Staphylococcus aureus, Corynebacterium striatum, Anaerobic cocci, and Prevotella bivia. She was started on Doxycycline and Flagyl and has finished them. She is allergic to Levaquin and Sulfa. Discussed with the patient that we may need to do operative debridement and complex secondary wound closure because of the inability to treat the recent cultures with po antibiotics. The Acetic Acid dressing changes were helpful and when completed, Dakin's dressing changes were started to the left breast. I don't want to go right to IV antibiotics since the ulcers are healing clinically. Also I would want deeper tissue cultures to document the need for IV antibiotics with an operative debridement if necessary. Since the ulcers are healing satisfactory at this time, she wants to hold off on any further surgical intervention at this time. Her Prealbumin from 08/20/18 was 6.9. Encourage nutritional supplementation with protein to help the heali ng process. Her HgbA1c from 08/02/18 was 6.0. Followup 2 weeks. Code Visit [id number]: [id number] Poppy subq tissue 20 sq cm/< - ICD-10 - L98.492, L02.211, N61.1, M79.89, S30.1xxS, S20.00xS, E11.9, F17.200
[2019-02-07 10:29] VITALS: BP 127/66; PULSE 85; RESP 20; TEMP 36.6; BMI 45.7
--- NOTE | 2019-02-07 16:13 | PN.PCM_ITS ---
(1) Abdominal panniculus, symptomatic Status: Chronic Code(s): E65 - Localized adiposity (2) Ulcer of abdomen wall with fat layer exposed Status: Chronic Code(s): L98.492 - Non-pressure chronic ulcer of skin of other sites with fat layer exposed (3) Wound of left breast Status: Chronic Qualifiers: Code(s): S21.002A - Unspecified open wound of left breast, initial encounter (4) Type 2 diabetes mellitus Status: Chronic Qualifiers: Code(s): E11.9 - Type 2 diabetes mellitus without complications (5) Tobacco use disorder Status: Chronic Code(s): F17.200 - Nicotine dependence, unspecified, uncomplicated (6) Morbid obesity Status: Chronic Code(s): E66.01 - Morbid (severe) obesity due to excess calories Type of Wound Date of Service: 02/07/19 Chief Complaint: Nonhealing infected diabetic hematoma ulcer abscesses left medial breast and right lower abdominal wall. History of Wound: Surgery 08/19/18 - 1. Surgical preparation left breast with incision and drainage and excisional debridement nonhealing necrotizing infected diabetic ulcer abscess and completion mastectomy (270 cm2). 2. Surgical preparation right lower abdominal wall with incision and drainage and excisional debridement nonhealing necrotizing infected diabetic ulcer abscess (616 cm2). Her original surgery was on 08/03/18 - 1. Surgical preparation left medial breast with incision and drainage and excisional debridement nonhealing necrotizing infected diabetic hematoma ulcer abscess and partial mastectomy (70 cm2). 2. Surgical preparation right lower abdominal wall with incision and drainage and excisional debridement nonhealing necrotizing infected diabetic hematoma ulcer abscess and abdominal panniculectomy (300 cm2). She was discharged on Ertapenem and her left breast worsened with necrotizing infection which prompted further surgery on 08/19/18. Wound care - Silver dressing changes in the abdomen and Dakin's dressing changes in the left breast. Operative culture - In the right lower abdominal wall - Pseudomonoas aeroginosa, Proteus mirabilis, Enterococcus faecalis, Enterococcus avium, MRSE, and Anaerobic cocci. In the left breast - Pseudomonas aeroginosa, Proteus mirabilis, and Melissa parapsilosis. She was treated with Vancomycin and Meropenem IV and has completed them. She was started on Diflucan and has finished them. She had repeat wound cultures on 11/29/18. The left breast showed Morganella morganii, Pseudonomonas aeroginosa, Staphylococcus cohnii urealyti, Corynebacterium striatum, Anaerobic cocci, and Prevotella disiens. The right lower abdominal wall showed Pseudomonas aeroginosa x2, Staphylococcus aureus, Corynebacterium striatum, Anaerobic cocci, and Prevotella bivia. She was started on Doxycycline and Flagyl. She is allergic to Levaquin and Sulfa. Prealbumin from 08/20/18 was 6.9. Encouraged nutritional supplementation with protein to help the healing process. HgbA1c from 08/02/18 was 6.0. Today she denies fever. Her appetite is ok. Progress of Wound: Stable - Physical Exam Vital Signs Temp Pulse Resp BP 98 F 85 20 H 127/66 H 02/07/19 10:29 02/07/19 10:29 02/07/19 10:29 02/07/19 10:29 General: Alert, Oriented x3 HEENT: Atraumatic Oral: Moist Mucosa Lungs: Normal air movement Cardiovascular: Regular rate Abdomen: Obese Extremities: Capillary Refill Less than 3 Seconds Skin: Ulcer/ Wound - mid and right lower abdominal ulcers. Mid abdominal ulcer dusky in color with a new tunneling at the bace of ulcer. Left breast wound stable Wound Measurements and Assessment WC - Nurse 1 - General Ulcer Measurement Start: 01/24/19 11:18 Freq: Status: Active Protocol: Activity Type Activity Date Activity User E-Sign Co-Sign Detail Recorded Client Recorded Date Recorded By Document 02/07/19 10:29 DL [id number] 02/07/19 10:42 DL 02/07/19 10:29 Wound Center Nurse 1 [Ulcer Assessment] 8-right abdomen -Current Size (cm) - Length 1 -Current Size (cm) - Width 3 -Current Size (cm) - Depth 0.3 -Total Square Cm 3 -Photo Taken No -Exudate Amt Small -Exudate Type Serosanguineous -Wound Margin Distinct, Outline Attached -Granulation Amt None Present (0 %) -Necrosis Amt Large (67-100%) -Necrotic Tissue Type Adherent Slough -Structure Exposed N/A -Texture (Gabriela-wound Skin Appearance) Localized Edema ,Scarring -Moisture (Gabriela-wound Skin Appearance No Abnormality ) -Color (Gabriela-wound Skin Appearance) Rubor -Temperature (Gabriela-wound Skin No Abnormality Appearance) (Pt Warm) -Tenderness on Palpation (Gabriela-wound Yes Skin Appearance) -Ulcer Cleansing Wound Cleanser -Foul Odor after Cleansing No -Anesthetic Used 5% Lidocaine Gel #6 LOWER ABD mid -Current Size (cm) - Length 1.8 -Current Size (cm) - Width 6 -Current Size (cm) - Depth 0.2 -Total Square Cm 10.8 -Photo Taken No -Exudate Amt Medium -Exudate Type Serosanguineous -Wound Margin Distinct, Outline Attached -Granulation Amt Small (1-33%) -Granulation Quality [place] -Necrosis Amt Large (67-100%) -Necrotic Tissue Type Adherent Slough -Structure Exposed N/A -Texture (Gabriela-wound Skin Appearance) Localized Edema ,Scarring -Moisture (Gabriela-wound Skin Appearance No Abnormality ) -Color (Gabriela-wound Skin Appearance) Erythema,Rubor -Temperature (Gabriela-wound Skin No Abnormality Appearance) (Pt Warm) -Tenderness on Palpation (Gabriela-wound Yes Skin Appearance) -Ulcer Cleansing Wound Cleanser -Foul Odor after Cleansing No -Anesthetic Used 5% Lidocaine Gel #5 LEFT BREAST POST OP -Current Size (cm) - Length 2 -Current Size (cm) - Width 4 -Current Size (cm) - Depth 0.2 -Total Square Cm 8 -Photo Taken No -Exudate Amt Medium -Exudate Type Serosanguineous -Wound Margin Thickened & Rolled Under -Granulation Amt Medium (34-66%) -Granulation Quality [place],Red -Necrosis Amt Medium (34-66%) -Necrotic Tissue Type Adherent Slough -Structure Exposed N/A -Texture (Gabriela-wound Skin Appearance) Scarring -Moisture (Gabriela-wound Skin Appearance No Abnormality ) -Color (Gabriela-wound Skin Appearance) No Abnormality -Temperature (Gabriela-wound Skin No Abnormality Appearance) (Pt Warm) -Tenderness on Palpation (Gabriela-wound No Skin Appearance) -Ulcer Cleansing Wound Cleanser -Foul Odor after Cleansing Yes -Anesthetic Used 5% Lidocaine Gel WC - Nurse 2 - General Ulcer CM Notes Start: 01/24/19 11:18 Freq: Status: Active Protocol: Activity Type Activity Date Activity User E-Sign Co-Sign Detail Recorded Client Recorded Date Recorded By Document 02/07/19 10:59 BILLIE [id number] 02/07/19 11:03 BILLIE 02/07/19 10:59 Wound Center Nurse 2 [Procedure/Treatment] 8-right abdomen -Time 10:59 -Correct Patient Yes -Correct Side, Site, Position Yes -Correct Procedure Yes -Procedure Performed Yes -Type of Procedure Debridement -Clinical Debridement Subcutaneous -Post Debridement Size (cm) - Length 1.0 -Post Debridement Size (cm) - Width 2 -Post Debridement Size (cm) - Depth 2 -Total Square Cm 2.0 -Wound/Ulcer Outcome Not Healed -Foul Odor after Cleansing No -Bioengineered Tissue No -Bleeding Controlled with Pressure -Offloading No -Treatment Response Procedure Tolerated Well #6 LOWER ABD mid -Time 11:00 -Correct Patient Yes -Correct Side, Site, Position Yes -Correct Procedure Yes -Procedure Performed Yes -Type of Procedure Debridement -Clinical Debridement Subcutaneous -Post Debridement Size (cm) - Length 2.0 -Post Debridement Size (cm) - Width 7 -Post Debridement Size (cm) - Depth 1.9 -Total Square Cm 14.0 -Wound/Ulcer Outcome Not Healed -Ulcer Cleansing Rinsed/ Irrigated with Saline -Foul Odor after Cleansing No -Bioengineered Tissue No -Bleeding Controlled with Pressure -Offloading No -Treatment Response Procedure Tolerated Well #5 LEFT BREAST POST OP -Time 11:00 -Correct Patient Yes -Correct Side, Site, Position Yes -Correct Procedure Yes -Procedure Performed Yes -Type of Procedure Debridement -Clinical Debridement Subcutaneous -Post Debridement Size (cm) - Length 2.4 -Post Debridement Size (cm) - Width 4.7 -Post Debridement Size (cm) - Depth 0.3 -Total Square Cm 11.28 -Wound/Ulcer Outcome Not Healed -Ulcer Cleansing Rinsed/ Irrigated with Saline -Foul Odor after Cleansing No -Bioengineered Tissue No -Bleeding Controlled with Pressure -Offloading No -Treatment Response Procedure Tolerated Well [See Physician Procedure note for Specifics] Pain Scale: 0-10 Numeric [Pain] -Is Patient Pain Free? Yes Neurological: Neuro grossly intact Psych/Mental Status: Normal Affect, Appropriate Debridement Note Post-Debridement Measurements/Treatment WC - Nurse 2 - General Ulcer CM Notes Start: 01/24/19 11:18 Freq: Status: Active Protocol: Activity Type Activity Date Activity User E-Sign Co-Sign Detail Recorded Client Recorded Date Recorded By Document 01/24/19 12:08 BILLIE [id number] 01/24/19 12:17 Document 02/07/19 10:59 [id number] 02/07/19 11:03 01/24/19 02/07/19 12:08 10:59 Wound Center Nurse 2 8-right abdomen -Time 12:08 10:59 -Correct Patient Yes Yes -Correct Side, Site, Position Yes Yes -Correct Procedure Yes Yes -Procedure Performed Yes Yes -Type of Procedure Debridement Debridement -Clinical Debridement Subcutaneous Subcutaneous -Post Debridement Size (cm) - Length 0.5 1.0 -Post Debridement Size (cm) - Width 1.2 2 -Post Debridement Size (cm) - Depth 0.2 2 -Total Square Cm 0.60 2.0 -Wound/Ulcer Outcome Not Healed Not Healed -Ulcer Cleansing Rinsed/ Irrigated with Saline -Foul Odor after Cleansing No No -Bioengineered Tissue No No -Bleeding Controlled with Pressure Pressure -Offloading No No -Treatment Response Procedure Procedure Tolerated Well Tolerated Well #6 LOWER ABD mid -Time 12:09 11:00 -Correct Patient Yes Yes -Correct Side, Site, Position Yes Yes -Correct Procedure Yes Yes -Procedure Performed Yes Yes -Type of Procedure Debridement Debridement -Clinical Debridement Subcutaneous Subcutaneous -Post Debridement Size (cm) - Length 1.8 2.0 -Post Debridement Size (cm) - Width 6.8 7 -Post Debridement Size (cm) - Depth 0.2 1.9 -Total Square Cm 12.24 14.0 -Wound/Ulcer Outcome Not Healed Not Healed -Ulcer Cleansing Rinsed/ Rinsed/ Irrigated with Irrigated with Saline Saline -Foul Odor after Cleansing No No -Bioengineered Tissue No No -Bleeding Controlled with Pressure Pressure -Offloading No No -Treatment Response Procedure Procedure Tolerated Well Tolerated Well #5 LEFT BREAST POST OP -Time 12: 11:00 -Correct Patient Yes Yes -Correct Side, Site, Position Yes Yes -Correct Procedure Yes Yes -Procedure Performed Yes Yes -Type of Procedure Debridement Debridement -Clinical Debridement Subcutaneous Subcutaneous -Post Debridement Size (cm) - Length 1.7 2.4 -Post Debridement Size (cm) - Width 10.5 4.7 -Post Debridement Size (cm) - Depth 0.4 0.3 -Total Square Cm 17.85 11.28 -Wound/Ulcer Outcome Not Healed Not Healed -Ulcer Cleansing Rinsed/ Rinsed/ Irrigated with Irrigated with Saline Saline -Foul Odor after Cleansing No No -Bioengineered Tissue No No -Bleeding Controlled with Pressure Pressure -Offloading No No -Treatment Response Procedure Procedure Tolerated Well Tolerated Well Pain Scale: 0-10 Numeric Is Patient Pain Free? Yes Yes Wound debrided: right lower abdominal area (both mid and right lateral area) Laterality: Right Type of Debridement: Excisional debridement Anesthesia Used: 5% Lidocaine Gel Depth: Down to and including healthy tissue, in the subcutaneous layer Percentage of wound debrided: 100 Instrument Used: 3mm curette Tissue Removed: subcutaneous tissue and slough Severity: Fat Layer Exposed Amount of bleeding with debridement: Mild Bleeding Controlled with: Pressure Patient did not tolerate procedure well - Additional Wound Wound debrided: breast wound Laterality: Left Type of Debridement: Excisional debridement Anesthesia Used: 5% Lidocaine Gel Depth: Down to and including healthy tissue, in the subcutaneous layer Percentage of wound debrided: 100 Instrument Used: 5mm curette Tissue Removed: subcutaneous tissue and slough Severity: Fat Layer Exposed Amount of bleeding with debridement: Mild Bleeding Controlled with: Pressure Patient tolerated procedure: Patient did not tolerate procedure well Assessment/Plan Assessment: 1. 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 2. Nonhealing necrotizing infected diabetic ulcer abscess right lower abdominal wall. 3. Hematoma left medial breast, sequela. 4. Hematoma right lower abdominal wall, sequela. 5. Diabetes mellitus. 6. Smoker. 7. s/p surgical preparation left breast with incision and drainage and excisional debridement nonhealing necrotizing infected diabetic ulcer abscess and completion mastectomy (270 cm2) and surgical preparation right lower abdominal wall with incision and drainage and excisional debridement nonhealing necrotizing infected diabetic ulcer abscess (616 cm2). Plan: The ulcers are stable. Continue the Silver dressing to the right lower abdominal wall. The one area on the lower abdomen has a dusky appearance today and there is a new tunneling at the distal edge of the opened area. Will place iodoform gauze in the tunneling and top with silver dressing. Will apply Dakin's to the left breast. The Acetic Acid dressing changes have been completed. The left breast culture showed Morganella morganii, Pseudomonas aeroginosa, Staphylococcus cohnii urealyti, Corynebacterium striatum, Anaerobic cocci, and Prevotella disiens. The right lower abdominal wall culture showed Pseudomonas aeroginosa x2, Staphylococcus aureus, Corynebacterium striatum, Anaerobic cocci, and Prevotella bivia. She was started on Doxycycline and Flagyl and has finished them. She is allergic to Levaquin and Sulfa. Discussed with the patient that we may need to do operative debridement and complex secondary wound closure because of the inability to treat the recent cultures with po antibiotics. The Acetic Acid dressing changes were helpful and when completed, Dakin's dressing changes were started to the left breast. I don't want to go right to IV antibiotics since the ulcers are healing clinically. Also I would want deeper tissue cultures to document the need for IV antibiotics with an operative debridement if necessary. Since the ulcers are healing satisfactory at this time, she wants to hold off on any further surgical intervention at this time. Her Prealbumin from 08/20/18 was 6.9. Encourage nutritional supplementation with protein to help the healin g process. Her HgbA1c from 08/02/18 was 6.0. Followup 3 weeks. Code Visit 111xxx-113xx: [id number] Poppy subq tissue 20 sq cm/< Add On Codes: [id number] Poppy subq tissue add-on
== END 2019-02-08 23:59 ==
LOC: WC 10:30
PROVIDERS: Family Provider Family Medicine; Referring Provider Family Medicine; Visit Provider Family Medicine
DX: E11.622 Type 2 diabetes mellitus with other skin ulcer (principal); L98.492 Non-pressure chronic ulcer of skin of other sites with fat layer exposed; L02.211 Cutaneous abscess of abdominal wall; L76.32 Postprocedural hematoma of skin and subcutaneous tissue following other procedure; Y83.8 Other surgical procedures as the cause of abnormal reaction of the patient, or of later complication, without mention of misadventure at the time of the procedure
CPT/HCPCS: 11042; 11045

== ENCOUNTER 2019-03-28 09:52 | Outpatient (RCR) | payer OTHER, SELFPAY ==
[2017-07-08 11:20] VITALS: BMI 52.1
[2019-02-09 00:31] VITALS: BP 127/66; PULSE 85; RESP 20; TEMP 36.6
[2019-03-28 11:29] VITALS: BP 153/98; PULSE 87; RESP 16; TEMP 36; BMI 41.8
--- NOTE | 2019-03-28 18:20 | PN.PCM_ITS ---
Type of Wound Date of Service: 03/28/19 Chief Complaint: Nonhealing infected diabetic hematoma ulcer abscesses left medial breast and right lower abdominal wall. History of Wound: Surgery 08/19/18 - 1. Surgical preparation left breast with incision and drainage and excisional debridement nonhealing necrotizing infected diabetic ulcer abscess and completion mastectomy (270 cm2). 2. Surgical preparation right lower abdominal wall with incision and drainage and excisional debridement nonhealing necrotizing infected diabetic ulcer abscess (616 cm2). Her original surgery was on 08/03/18 - 1. Surgical preparation left medial breast with incision and drainage and excisional debridement nonhealing necrotizing infected diabetic hematoma ulcer abscess and partial mastectomy (70 cm2). 2. Surgical preparation right lower abdominal wall with incision and drainage and excisional debridement nonhealing necrotizing infected diabetic hematoma ulcer abscess and abdominal panniculectomy (300 cm2). She was discharged on Ertapenem and her left breast worsened with necrotizing infection which prompted further surgery on 08/19/18. Wound care - Dakin's. Operative culture - In the right lower abdominal wall - Pseudomonoas aeroginosa, Proteus mirabilis, Enterococcus faecalis, Enterococcus avium, MRSE, and Anaerobic cocci. In the left breast - Pseudomonas aeroginosa, Proteus mirabilis, and Melissa parapsilosis. She was treated with Vancomycin and Meropenem IV and has completed them. She was started on Diflucan and has finished them. She had repeat wound cultures on 11/29/18. The left breast showed Morganella morganii, Pseudonomonas aeroginosa, Staphylococcus cohnii urealyti, Corynebacterium striatum, Anaerobic cocci, and Prevotella disiens. The right lower abdominal wall showed Pseudomonas aeroginosa x2, Staphylococcus aureus, Corynebacterium striatum, Anaerobic cocci, and Prevotella bivia. She was started on Doxycycline and Flagyl. She is allergic to Levaquin and Sulfa. Prealbumin from 08/20/18 was 6.9. Encouraged nutritional supplementation with protein to help the healing process. HgbA1c from 08/02/18 was 6.0. Today she denies fever. Her appetite is ok. Progress of Wound: Improved. - Physical Exam Vital Signs Temp Pulse Resp BP 96.8 F L 87 16 153/98 H 03/28/19 11:29 03/28/19 11:29 03/28/19 11:29 03/28/19 11:29 General: Alert, Oriented x3 HEENT: PERRLA, EOMI Oral: Moist Mucosa Neck: Supple Lungs: Clear to auscultation Cardiovascular: Regular rate, Regular Rhythm Abdomen: Soft, Non-Distended Extremities: No clubbing, No cyanosis, Edema - mild edema in lower extremities. Skin: Ulcer/ Wound - Left breast ulcer laterally is stable. Some granulation tissue seen. Right lower abdominal wall ulcer laterally is stable. Some granulation tissue seen. Wound Measurements and Assessment WC - Nurse 1 - General Ulcer Measurement Start: 03/28/19 11:29 Freq: Status: Active Protocol: Activity Type Activity Date Activity User E-Sign Co-Sign Detail Recorded Client Recorded Date Recorded By Document 03/28/19 11:29 [facility] [id number] 03/28/19 11:39 [facility] 03/28/19 11:29 Wound Center Nurse 1 [Ulcer Assessment] #11- L BREAST -Combined with other wound No -Current Size (cm) - Length 0.4 -Current Size (cm) - Width 0.7 -Current Size (cm) - Depth 0.1 -Total Square Cm 0.28 -Date of Last Picture (Recall this 03/28/19 field) -Photo Taken Yes -Epithelialization Large 67-100% -Tunneling No -Undermining/Tunneling No -Circular Undermining No -Exudate Amt Small -Exudate Type Serous -Wound Margin Flat & Intact -Granulation Amt Medium (34-66%) -Granulation Quality Red -Slough/Fibrin Yes -Necrosis Amt Medium (34-66%) -Necrotic Tissue Type Adherent Slough -Texture (Gabriela-wound Skin Appearance) Assessed, Scarring -Moisture (Gabriela-wound Skin Appearance Assessed,Dry/ ) Scaly -Color (Gabriela-wound Skin Appearance) Assessed -Temperature (Gabriela-wound Skin No Abnormality Appearance) (Pt Warm) -Tenderness on Palpation (Gabriela-wound Yes Skin Appearance) -Ulcer Cleansing SOAPY WATER -Foul Odor after Cleansing No #10- LOWER MID ABDOMEN CLUSTER -Combined with other wound No -Current Size (cm) - Length 1.5 -Current Size (cm) - Width 5 -Current Size (cm) - Depth 0.1 -Total Square Cm 7.5 -Date of Last Picture (Recall this 03/28/19 field) -Photo Taken Yes -Epithelialization Medium 34-66% -Tunneling No -Undermining/Tunneling No -Circular Undermining No -Exudate Amt Small -Exudate Type Serous -Wound Margin Flat & Intact -Granulation Amt Medium (34-66%) -Granulation Quality Hyper- granulation,Red -Slough/Fibrin Yes -Necrosis Amt Medium (34-66%) -Necrotic Tissue Type Adherent Slough -Structure Exposed None/Limited to Skin Breakdown -Texture (Gabriela-wound Skin Appearance) Scarring -Moisture (Gabriela-wound Skin Appearance Assessed,Dry/ ) Scaly -Color (Gabriela-wound Skin Appearance) Assessed -Temperature (Gabriela-wound Skin No Abnormality Appearance) (Pt Warm) -Tenderness on Palpation (Gabriela-wound Yes Skin Appearance) -Ulcer Cleansing SOAPY WATER -Foul Odor after Cleansing No #9 R ABDOMEN -Combined with other wound No -Current Size (cm) - Length 0.5 -Current Size (cm) - Width 1 -Current Size (cm) - Depth 0.1 -Total Square Cm 0.5 -Date of Last Picture (Recall this 03/28/19 field) -Photo Taken Yes -Epithelialization Medium 34-66% -Tunneling No -Undermining/Tunneling No -Circular Undermining No -Exudate Amt Small -Exudate Type Serous -Wound Margin Flat & Intact -Granulation Amt Medium (34-66%) -Granulation Quality Red -Slough/Fibrin Yes -Necrosis Amt Medium (34-66%) -Necrotic Tissue Type Adherent Slough -Structure Exposed None/Limited to Skin Breakdown -Texture (Gabriela-wound Skin Appearance) Assessed, Scarring -Moisture (Gabriela-wound Skin Appearance Assessed,Dry/ ) Scaly -Color (Gabriela-wound Skin Appearance) Assessed -Temperature (Gabriela-wound Skin No Abnormality Appearance) (Pt Warm) -Tenderness on Palpation (Gabriela-wound Yes Skin Appearance) -Ulcer Cleansing SOAPY WATER -Foul Odor after Cleansing No WC - Nurse 2 - General Ulcer CM Notes Start: 03/28/19 11:29 Freq: Status: Active Protocol: Activity Type Activity Date Activity User E-Sign Co-Sign Detail Recorded Client Recorded Date Recorded By Document 03/28/19 11:57 BILLIE [id number] 03/28/19 12:01 BILLIE 03/28/19 11:57 Wound Center Nurse 2 [Procedure/Treatment] #11- L BREAST -Correct Patient No -Correct Side, Site, Position No -Correct Procedure No -Procedure Performed No -Wound/Ulcer Outcome Not Healed #10- LOWER MID ABDOMEN CLUSTER -Correct Patient No -Correct Side, Site, Position No -Correct Procedure No -Procedure Performed No -Wound/Ulcer Outcome Not Healed #9 R ABDOMEN -Correct Patient No -Correct Side, Site, Position No -Correct Procedure No -Procedure Performed No -Wound/Ulcer Outcome Not Healed [See Physician Procedure note for Specifics] Pain Scale: 0-10 Numeric [Pain] -Is Patient Pain Free? Yes Neurological: Cranial nerves II-XII grossly intact Psych/Mental Status: Normal Affect, Appropriate Debridement Note Post-Debridement Measurements/Treatment WC - Nurse 2 - General Ulcer CM Notes Start: 03/28/19 11:29 Freq: Status: Active Protocol: Activity Type Activity Date Activity User E-Sign Co-Sign Detail Recorded Client Recorded Date Recorded By Document 03/28/19 11:57 [id number] 03/28/19 12:01 BILLIE 03/28/19 11:57 Wound Center Nurse 2 #11- L BREAST -Correct Patient No -Correct Side, Site, Position No -Correct Procedure No -Procedure Performed No -Wound/Ulcer Outcome Not Healed #10- LOWER MID ABDOMEN CLUSTER -Correct Patient No -Correct Side, Site, Position No -Correct Procedure No -Procedure Performed No -Wound/Ulcer Outcome Not Healed #9 R ABDOMEN -Correct Patient No -Correct Side, Site, Position No -Correct Procedure No -Procedure Performed No -Wound/Ulcer Outcome Not Healed Pain Scale: 0-10 Numeric Is Patient Pain Free? Yes Assessment/Plan Assessment: 1. Nonhealing necrotizing infected diabetic ulcer abscess left breast, almost healed. 2. Nonhealing necrotizing infected diabetic ulcer abscess right lower abdominal wall, almost healed. 3. Hematoma left medial breast, sequela. 4. Hematoma right lower abdominal wall, sequela. 5. Diabetes mellitus. 6. Smoker. 7. s/p surgical preparation left breast with incision and drainage and excisional debridement nonhealing necrotizing infected diabetic ulcer abscess and completion mastectomy (270 cm2) and surgical preparation right lower abdominal wall with incision and drainage and excisional debridement nonhealing necrotizing infected diabetic ulcer abscess (616 cm2). Plan: The ulcers are improving and are almost healed. Will stop Dakin's dressing changes and start Collagen Hydrogel dressing changes. Patient refused any sharp debridements. Discussed with the patient about operative debridement and complex secondary wound closure to both the left breast and right lower abdominal wall. She doesn't want surgery at this time. She thinks the remaining small ulcerations will continue to heal and she doesn't want to come back here to the Wound Center for routine visits. If there is a major change fo r the worse, she states she will return for evaluation and to discuss surgial options. Her Prealbumin from 08/20/18 was 6.9. Encourage nutritional supplementation with protein to help the healing process. Her HgbA1c from 08/02/18 was 6.0. Followup on an as needed basis. Code Visit Office Visits / Consults: [id number] OV L4 Est - ICD-10 - L98.492, L02.211, N61.1, M79.89, S30.1xxS, S20.00xS, E11.9, F17.200
== END 2019-04-09 23:59 ==
LOC: WC 09:52
PROVIDERS: Family Provider Family Medicine; Referring Provider Family Medicine; Visit Provider Family Medicine
DX: E11.622 Type 2 diabetes mellitus with other skin ulcer (principal); N61.1 Abscess of the breast and nipple; L98.499 Non-pressure chronic ulcer of skin of other sites with unspecified severity; L02.211 Cutaneous abscess of abdominal wall; R60.0 Localized edema; Z90.12 Acquired absence of left breast and nipple
CPT/HCPCS: 99214; G0463

== ENCOUNTER → 2019-03-29 09:25 | Outpatient (CLI) | payer OTHER, SELFPAY ==
[2017-07-08 11:20] VITALS: BMI 52.1
[2019-03-28 11:29] VITALS: BMI 41.8
[2019-03-29 12:59] LABS: Thyroid Stim Hormone (TSH) 1.97 uIU/mL (0.358-3.74)
== END ==
PROVIDERS: Referring Provider Family Medicine; Visit Provider Family Medicine
DX: R53.83 Other fatigue (principal)
CPT/HCPCS: 36415; 84443

== ENCOUNTER 2019-10-31 00:43 | Emergency (ER) | payer OTHER, SELFPAY ==
[2017-07-08 11:20] VITALS: BMI 52.1
[2019-10-31 00:44] VITALS: BP 184/79; PULSE 89; RESP 16; TEMP 36.5; O2SAT 98; BMI 49.4
--- NOTE | 2019-10-31 01:04 | ED.VIS.GEN ---
History of Present Illness Chief Complaint: Nosebleed Narrative: Patient presenting for evaluation secondary to epistaxis. Patient is on Plavix as well as is a smoker. Patient tells me that she sneezed very forcibly yesterday, and since then has been having intermittent problems with nosebleed. Patient states that it predominantly is coming from her left nostril but she has been getting some drainage down the back of her throat as well as some drainage from her right nostril. She is never really had any prior episodes in the past. She denies any injuries per se to the nose. Bleeding is been mild to moderate. Controlled minimally with pressure. Review of systems otherwise negative. Past Medical History - Allergies and Home Meds Allergies/Adverse Reactions: Allergies cephalexin [From Keflex] Allergy (Severe, Verified 07/30/18 13:50) Rash levofloxacin [From Levaquin] Allergy (Severe, Verified 07/30/18 13:50) Rash niacin Allergy (Severe, Verified 07/30/18 13:50) Rash Penicillins Allergy (Severe, Verified 07/30/18 13:50) Anaphylaxis Sulfa (Sulfonamide Antibiotics) Allergy (Severe, Verified 07/30/18 13:50) Rash citalopram [From Celexa] Adverse Reaction (Severe, Verified 07/30/18 13:50) Rash Estrogens Adverse Reaction (Severe, Verified 07/30/18 13:50) blood clots rosuvastatin [From Crestor] Adverse Reaction (Severe, Verified 07/30/18 13:50) myalgias oral contraceptives Adverse Reaction (Severe, Uncoded 07/30/18 13:50) Unknown Primary Care Physician: Manuel Mortensen [Primary Care Provider] - Prior records reviewed: Yes Past Medical History: - - Hypertension, CAD, diabetes, tobacco abuse Surgical History: coronary bypass surgery, hysterectomy, tonsillectomy Lives: Spouse/ Significant Other Smoking Status: Current every day smoker Alcohol: None Drugs: None - Family History Maternal Family History: Family History (Last Reviewed 08/02/18 @ 19:[address] Gianluca Hernandez DO) Father CAD (coronary artery disease) Cancer Mother CVA (cerebral vascular accident) Hypertension Family History: Reports: No pertinent history Paternal Family History: Family History (Last Reviewed 08/02/18 @ 19:[address] Gianluca Jopperi, DO) Father CAD (coronary artery disease) Cancer Mother CVA (cerebral vascular accident) Hypertension Family History: Reports: No pertinent history Review of Systems All systems negative except as indicated General: Denies: Chills, Fever, Sweats Eyes: Denies: Visual changes - bilaterally, Diplopia ENT: Reports: - - Nosebleed Cardiovascular: Denies: Chest pain, Palpitations Respiratory: Denies: Dyspnea, Cough, Dyspnea on exertion Gastrointestinal: Denies: Abdominal pain, Nausea, Vomiting, Diarrhea, Melena, Hematochezia Genitourinary: Denies: Dysuria, Hematuria, Frequency Musculoskeletal: Denies: Back pain, Extremity Pain Skin: Denies: Rash, Wounds Neurological: Denies: Headache, Weakness, Numbness Physical Exam Vital Signs/Narrative: Vital Signs Temp Pulse Resp BP Pulse Ox 10/31/19 00:44 97.7 F L 89 16 184/79 H 98 Inital Vital Signs reviewed: Yes General: Well nourished, Well developed, No Acute Distress Head: Normocephalic, Atraumatic Eyes: - - Minimal epistaxis is noted with nose clamp is in place coming from the left nostril. There is some blood noted in the patient's posterior oropharynx. Neck: Supple Cardiovascular: Regular rate, Regular rhythm, - - Occasional extrasystoles, no murmurs. 2+ radial pulses bilaterally symmetric. Respiratory: No distress, CTA bilaterally, Chest nontender Abdomen: Soft, Nontender, Nondistended, Normal bowel sounds Extremities: Nontender, No edema Skin: Normal color, No rash Neurological: Alert, Oriented x3, Cranial nerves II-XII grossly intact, Normal Strength, Normal Sensation Psychological: Normal affect, Normal Mood Diagnostic/Tx/Re-eval - Medical Decision Making Patient presented with epistaxis. It was addressed as noted in the procedure note. Patient was discharged with ENT follow-up. Procedures Procedure(s): Epistaxis management: Patient presented with epistaxis. Patient was initially placed in a nose clamp. She was reevaluated and continued to have bleeding. She was asked to evacuate blood clots from her naris, and then bilateral Afrin-soaked cotton balls were placed in the nostrils and the patient was again clamped. These were removed and the patient still has mild bleeding. I was able to examine the nostrils. Patient has extremely excoriated nasal passages, and potentially has a perforation in her nasal septum. No obvious arterial bleeding that would lend to cautery. Patient's nostrils were then atomized with TXA bilaterally and the patient was observed. Upon repeat evaluation patient was having repeat bleeding from her left nostril. I attempted the spray TXA in the nostrils again and pack him with TXA soaked cotton, but the patient was still having persistent bleeding. 5.5 cm left-sided anterior Rhino Rocket was then placed, and was inflated with saline. Patient tolerated this with some difficulty. Patient was again placed on observation. Repeat evaluation of the patient at 0 230 shows her to have had cessation of bleeding and hemostasis. Patient at this point will be discharged. She will be sent home with prophylactic Keflex. She will be given follow-up with ENT. She was educated on signs and symptoms which to return, patient was discharged. ED Disposition - Plan for ED Patient: Disposition: Home or Assisted Living Diagnosis: Epistaxis not due to trauma Instructions: ED Epistaxis Adult Prescriptions: Clindamycin [Cleocin] 300 mg PO TID #24 cap Prescription Printed Referrals: Flo Wright MD [STAFF PHYSICIAN] - 2 Days
[2019-10-31] MEDS: Oxymetazoline 0.05% 1 SPRAY SPRAY.BTL 2 SPRAY NASAL (02:06)
[2019-10-31] MEDS: TRANEXAMIC ACID 1,000 MG/10 ML ML 1000 MG OPERA.SITE (02:06)
[2019-10-31 02:38] VITALS: PULSE 75; RESP 15; O2SAT 97
== END 2019-10-31 02:38 | disposition home or self-care (01) ==
PROVIDERS: Emergency Provider Emergency Medicine
DX: R04.0 Epistaxis (principal); I10 Essential (primary) hypertension; I25.10 Atherosclerotic heart disease of native coronary artery without angina pectoris; E11.9 Type 2 diabetes mellitus without complications; Z79.02 Long term (current) use of antithrombotics/antiplatelets; Z79.899 Other long term (current) drug therapy; F17.200 Nicotine dependence, unspecified, uncomplicated
CPT/HCPCS: 30903; 99282

== ENCOUNTER 2019-11-04 10:23 | Emergency (ER) | payer OTHER, SELFPAY ==
[2017-07-08 11:20] VITALS: BMI 52.1
[2019-11-04 10:25] VITALS: BP 156/104; PULSE 91; RESP 17; TEMP 35.7; O2SAT 94; BMI 47.1
[2019-11-04] MEDS: Ondansetron ODT 4 MG Tablet PO (11:12)
[2019-11-04 11:14] LABS: Absolute Lymphocyte Count 2.15 X10^3/uL (0.83-4.51); Absolute Neutrophil Count 12.4 X10^3/uL (2.0-7.7); Basophil# 0.15 X10^3/uL; Basophil% 0.9 % (0-1); Eosinophil# 0.17 X10^3/uL; Eosinophils% 1.1 % (0-5); Hematocrit 53.2 % (37-47); Hemoglobin 16.8 g/dL (12.0-15.0); Lymphocyte # 2.15 X10^3/ul (4.0); Lymphocyte % 13.3 % (19-41); Mean Corp Hgb Conc 31.6 g/dL (32-36); Mean Corpuscular Hgb 26.5 pg (27.0-32.0); Mean Corpuscular Volume 83.9 fL (81-99); Mean Platelet Vol. 11.1 fl (6.2-12.0); Monocyte# 1.15 X10^3/uL; Monocyte% 7.1 % (0-10); NRBC Flagged by Analyzer 0 % (0-5); Neutrophil % 76.9 % (47-70); POSITIVE MORPHOLOGY YES; Platelet Count 295 K/mm3 (150-450); RBC Distribution Width CV 17.7 % (11.6-14.6); RBC Distribution Width SD 49.8 fl (35.1-43.9); Red Blood Count 6.34 M/mm3 (4.2-5.4); White Blood Count 16.1 K/mm3 (4.4-11.0)
[2019-11-04] MEDS: morphine 8 MG/ML Syringe IM (11:14)
[2019-11-04 11:18] LABS: Differential Indicated SCAN CRITERIA MET
[2019-11-04 11:27] LABS: Anion Gap 5 (5-15); BUN 24 mg/dL (7-18); Calcium,Total 10.3 mg/dL (8.5-10.1); Chloride 104 mmol/L (98-107); Creatinine, Serum 1.33 mg/dL (0.55-1.02); EST Glomerular Filtration Rate 43 mL/min (>60); Est Glom Filt Rate - Afr Amer 52 mL/min (>60); Estimated Creatinine Clearance 35.81 ml/min; Glucose 107 mg/dL (74-106); Potassium 3.7 mmol/L (3.5-5.1); Sodium Level 138 mmol/L (136-145)
[2019-11-04 11:28] LABS: International Normalized Ratio 1.1; Partial Thromboplast Time 28.4 Seconds (24.1-36.2); Prothrombin Time (Protime)PT. 13.4 SECONDS (11.7-14.9)
[2019-11-04 11:38] LABS: Platelet Estimate ADEQUATE (ADEQ); Reactive Lymphocyte 1+; Red Cell Morphology NORM C+C NORMAL (NORM C&C)
--- NOTE | 2019-11-04 12:09 | ED.VISSUMM ---
- ER Visit Summary Date of Service: 11/04/19 Chief Complaint: Nosebleed History of Present Illness: The patient is a [address] Mortensen. She is on Plavix, but does not have any stents. She has a history of a bypass in 2011. Patient reports that she has a nosebleed that began 6 days ago. She had a packing placed and it had resolved. She was seen by Dr. lopez today and the packing was removed. He has been able to get this area to stop bleeding. Patient is currently on clindamycin. She has been nauseated. She denies any diarrhea. No fever or chills. She states that she has a headache that is 5-10 in severity. She does have a history of similar headaches. Physical Examination: Vitals: Stable. Afebrile. General: Well-nourished and well-developed. Head: Normocephalic atraumatic. HEENT: Active bleeding from the left nares. I am unable to visualize the source of this. Neck: Supple, no lymphadenopathy. No JVD. Nontender. Cardiovascular: Regular rate and rhythm. No murmurs. Respiratory: No respiratory distress. Clear to auscultation bilaterally. Abdominal: Soft, nontender, nondistended, normal bowel sounds. No guarding, rebound, or peritoneal signs. Back: Nontender. Extremities: Nontender, no edema. Skin: Normal color, no rash. Neurologic: Alert and oriented ?3. Cranial nerves II through XII are intact. Normal strength and sensation. Psych: Normal affect. Test Results: CBC shows a white count of 16.1 with an H&H of 16.8 and 53.2, segment neutrophils 77, lymphocytes 13. Chem-7 shows a glucose 107, BUN 24, creatinine 1.33, calcium of 10.3. Coags are normal. Emergency Department Course and Treatment: I suspect that the patient's elevated white count and creatinine are due to hemoconcentration from dehydration. She is given a liter normal saline. She is given morphine and Zofran IV. She had a 7.5 cm rapid Rhino placed and her bleeding has resolved. She is been able to ambulate about emerge department no further bleeding. Treatment Plan: Patient was discussed with Dr. Wright. She will be discharged with instructions to continue the clindamycin and given a prescription for this. She refused pain medications at home. Patient is instructed to hold her Plavix for the next week. She states that Dr. Mortensen does the dosing of this. She is instructed to speak with him about whether she needs to be on this still as she does not have stents. Follow-up Dr. lopez in 1 week for another exam. Return to the emergency department for any worsening symptoms. Disposition: To home in improved and stable condition. Impression: 1. Epistaxis on the left. 2. Dehydration. This note was generated with [employer] dictation software. It may contain incorrect words, spelling, and punctuation that were not noted in review of the chart prior to signing ED Disposition - Plan for ED Patient: Disposition: Home or Assisted Living Instructions: Nosebleed Prescriptions: Clindamycin HCl [Cleocin] 300 mg PO Q8 #21 cap Prescription Printed Referrals: Flo Wright MD [STAFF PHYSICIAN] - 1 Week
[2019-11-04] MEDS: Oxymetazoline 0.05% 1 SPRAY SPRAY.BTL 2 SPRAY NASAL (12:30)
== END 2019-11-04 12:59 | disposition home or self-care (01) ==
LOC: ED 11:22
PROVIDERS: Emergency Provider Emergency Medicine
DX: R04.0 Epistaxis (principal); E86.0 Dehydration; I10 Essential (primary) hypertension; I25.10 Atherosclerotic heart disease of native coronary artery without angina pectoris; E78.00 Pure hypercholesterolemia, unspecified; Z85.3 Personal history of malignant neoplasm of breast; Z85.42 Personal history of malignant neoplasm of other parts of uterus; Z95.1 Presence of aortocoronary bypass graft; Z79.02 Long term (current) use of antithrombotics/antiplatelets; Z79.899 Other long term (current) drug therapy; F17.200 Nicotine dependence, unspecified, uncomplicated
CPT/HCPCS: 30901; 80048; 85025; 85610; 85730; 96360; 96372; 99283; A4216

== ENCOUNTER → 2020-08-22 09:46 | Outpatient (CLI) | payer OTHER, SELFPAY ==
[2017-07-08 11:20] VITALS: BMI 52.1
[2020-08-22 12:14] LABS: Absolute Lymphocyte Count 1.93 X10^3/uL (0.83-4.51); Absolute Neutrophil Count 8.6 X10^3/uL (2.0-7.7); Basophil# 0.13 X10^3/uL; Basophil% 1.1 % (0-1); Eosinophil# 0.19 X10^3/uL; Eosinophils% 1.6 % (0-5); Hemoglobin 17.5 g/dL (12.0-15.0); Lymphocyte # 1.93 X10^3/ul (0.83-4.51); Lymphocyte % 16.4 % (19-41); Mean Corp Hgb Conc 30.2 g/dL (32-36); Mean Corpuscular Hgb 25.5 pg (27.0-32.0); Mean Corpuscular Volume 84.5 fL (81-99); Mean Platelet Vol. 11.1 fl (6.2-12.0); Monocyte# 0.87 X10^3/uL; Monocyte% 7.4 % (0-10); NRBC Flagged by Analyzer 0 % (0-5); Neutrophil # 8.56 X10^3/uL (2.7-7.7); Neutrophil % 72.9 % (47-70); Platelet Count 242 K/mm3 (150-450); RBC Distribution Width CV 17.8 % (11.6-14.6); RBC Distribution Width SD 50.4 fl (35.1-43.9); Red Blood Count 6.86 M/mm3 (4.2-5.4); White Blood Count 11.8 K/mm3 (4.4-11.0)
[2020-08-22 12:26] LABS: Differential Indicated SCAN CRITERIA MET
[2020-08-22 12:39] LABS: Cholesterol 153 mg/dL (200); High Density Lipoprotein 31 mg/dL; Triglycerides 142 mg/dL; Very Low Density Lipoprotein 28 mg/dL (5-40)
[2020-08-22 12:46] LABS: Differential Comment SCANNED
[2020-08-22 13:10] LABS: Hemoglobin A1c 5.8 % (3.8-5.6)
== END ==
PROVIDERS: Referring Provider Family Medicine; Visit Provider Family Medicine
DX: Z00.00 Encounter for general adult medical examination without abnormal findings (principal); E11.9 Type 2 diabetes mellitus without complications; E78.00 Pure hypercholesterolemia, unspecified; I10 Essential (primary) hypertension
CPT/HCPCS: 36415; 80061; 83036; 85025

== ENCOUNTER → 2020-08-30 15:16 | Outpatient (CLI) | payer OTHER, SELFPAY ==
[2017-07-08 11:20] VITALS: BMI 52.1
--- NOTE | 2020-08-30 15:18 | BI_ITS ---
MAMMOGRAPHY - BILATERAL SCREENING REASON FOR EXAM: Female, 64 years old. Routine annual screening examination. PERTINENT HISTORY: Non-contributory. History of a prior infection of the left breast with surgical drainage. Past history of endometrial carcinoma. TECHNIQUE: Digital bilateral breast liz (3D mammographic acquisition) in the CC and MLO projections. 2-D mediolateral oblique (MLO) and craniocaudad (CC) views of both breasts were obtained. CAD: Full Field Digital Mammography with Computer Added Detection was performed. COMPARISON: Comparison is made with prior study dated 08/22/2010 FINDINGS: Breast Composition: There are scattered areas of fibroglandular density. There is deformity of the left breast with evidence of skin thickening and post operative scarring in the deep inferior portion of the breast. Small benign-appearing bilateral axillary lymph nodes. No other significant abnormalities are identified. BI/SCRN MAMM (CAD)W/LIZ BILAT IMPRESSION: Status post surgical intervention in the left breast with decreased size of the left breast and postoperative skin thickening and scarring as described. Yearly follow-up mammogram recommended. (A) ASSESSMENT CATEGORY: BIRADS Category 2: Benign. A letter regarding these results will be sent to the patient by the facility within 30 days. Approximately 10% of breast cancers are not detected by mammography. A normal mammogram should not delay biopsy of a clinically suspicious abnormality. [id number] Electronically Signed: Raza Keita MD at 8:46 EDT , Service support ,
== END ==
PROVIDERS: Referring Provider Family Medicine; Visit Provider Family Medicine
DX: Z12.31 Encounter for screening mammogram for malignant neoplasm of breast (principal)
CPT/HCPCS: 77063; 77067

== ENCOUNTER 2020-12-08 16:10 | Emergency (ER) | payer OTHER, SELFPAY ==
[2017-07-08 11:20] VITALS: BMI 52.1
[2020-12-08 16:11] VITALS: BP 140/78; PULSE 91; RESP 18; TEMP 36.1; O2SAT 70; BMI 49.6
[2020-12-08] MEDS: Oxymetazoline 0.05% 1 SPRAY SPRAY.BTL 2 SPRAY NASAL (16:27)
--- NOTE | 2020-12-08 16:31 | EDS_ITS ---
HPI HPI - URI History of Present Illness Chief Complaint: Nosebleed Informant: patient Onset/Context/Timing Onset: Days Context: Gradual Onset Timing: Intermittent Current Severity: Mild Maximum Severity: Mild Narrative Narrative: 64-year-old female history of COPD, CAD with a prior CABG, DVT and on Plavix. Patient states she had a nosebleed around this time 1 year ago. Started having a nosebleed on has been intermittent. Primarily left- sided. Denies any trauma. Other than Plavix she denies any other blood thinners. Denies any other sites of bleeding. Prior similar symptoms: Yes Recent Illness/Hospitalization: No ROS ROS ED ROS Narrative Denies. Review of Systems ROS Unobtainable: Denies due to encephalopathy Constitutional Constitutional ED: Denies fever(s) Eyes Eyes: Denies change in vision ENT ENT ED: Denies ear pain Cardiovascular Cardiovascular: Denies chest pain Respiratory/Chest Respiratory/Chest: Reports cough; Denies dyspnea Gastrointestinal Gastrointestinal: Denies abdominal pain Genitourinary Genitourinary ED: Denies dysuria Musculoskeletal Musculoskeletal: Denies myalgias Integumentary Denies rash Neurologic Neurologic: Denies headache(s) Psychiatric Psychiatric: Denies depression Endocrine Endocrinology: Denies polyuria Hematologic/Lymphatic Hematologic/Lymphatic: Denies easy bruising Allergic/Immunologic Allergic/Immunologic ED: Denies urticaria PFSH PFSH Medical History Abnormal stress test Anxiety state Atherosclerotic heart disease of [place] coronary artery without angina pectoris COPD (chronic obstructive pulmonary disease) Diverticulosis Encephalitis Essential hypertension History of DVT (deep vein thrombosis) History of uterine cancer Morbid obesity Old myocardial infarction Pure hypercholesterolemia Tobacco use disorder Type 2 diabetes mellitus Home Medications sertraline 100 mg tablet 100 mg PO DAILY 07/02/17 [History Last Taken 08/17/18] isosorbide mononitrate 30 mg tablet,extended release 24 hr 30 mg PO QAM #30 tab 07/08/17 [Rx Last Taken 08/18/18] bupropion HCl 300 mg PO DAILY 07/20/18 [History Last Taken 08/18/18] clopidogrel 75 mg PO DAILY 08/18/18 [History Last Taken 08/18/18] simvastatin 20 mg PO QHS 08/18/18 [History Last Taken 08/17/18] hydrochlorothiazide 25 mg PO DAILY 10/31/19 [History Last Taken Unknown] lorazepam 0.5 mg PO BID PRN PRN 10/31/19 [History Last Taken Unknown] losartan 100 mg PO DAILY 10/31/19 [History Last Taken Unknown] carvedilol 6.25 mg PO TID 12/08/20 [History Last Taken Unknown] doxycycline hyclate 100 mg PO BID 3 Days #6 cap 12/08/20 [Rx Last Taken Unknown] Allergy/AdvReac Type Severity Reaction Status Date / Time cephalexin [From Keflex] Allergy Severe Rash Verified 12/08/20 16:22 levofloxacin [From Levaquin] Allergy Severe Rash Verified 12/08/20 16:22 niacin Allergy Severe Rash Verified 12/08/20 16:22 Penicillins Allergy Severe Anaphylaxis Verified 12/08/20 16:22 Sulfa (Sulfonamide Allergy Severe Rash Verified 12/08/20 16:22 Antibiotics) citalopram [From Celexa] AdvReac Severe Rash Verified 12/08/20 16:22 Estrogens AdvReac Severe blood clots Verified 12/08/20 16:22 rosuvastatin [From Crestor] AdvReac Severe myalgias Verified 12/08/20 16:22 oral contraceptives AdvReac Severe Unknown Uncoded 12/08/20 16:22 Family History Father CAD (coronary artery disease) Cancer Prostate and Bladder Mother CVA (cerebral vascular accident) Hypertension Surgical History Aortocoronary bypass status (~10/31/11) History of tonsillectomy History of total hysterectomy History of total mastectomy of left breast (~08/2018) History of tubal ligation Social History Smoking Status: Current every day smoker tobacco type: cigarettes alcohol intake: never substance use type: does not use EXAM Physical Exam Narrative Exam Narrative: 64-year-old female no acute distress. Vital signs stable. Elicited pulse ox of 70 when he walked her from the front to the back her sat was 94%. She does not look septic or toxic in any acute distress. H EENT exam unremarkable. Except active bleeding from her left naris. Dried blood in the right. Small amount of blood in posterior pharynx. Lungs coarse breath sounds bilaterally. Expiratory wheezes. Heart regular rhythm. Abdomen obese but soft nontender normal bowel sounds no peritoneal signs. Moving all 4 extremities nontender no edema. Neurologically awake and alert with no focal motor deficits. Const Vital Signs: 12/08/20 16:11 Temperature 97.0 F L Temperature Source Temporal Pulse Rate 91 Respiratory Rate 18 Blood Pressure 140/78 H Blood Pressure Mean 98 Pulse Ox 70 Oxygen Delivery Method Room Air Positive well nourished, well developed and obese; Negative for cachectic or contractures Constitutional Narrative: Heavy smell of smoke. General Appearance ED: well developed and NAD; Negative for cachectic, c ontractures, cyanotic, diaphoretic or pallor Nutritional Appearance: obese; Negative for cachectic HEENT HEENT Narrative: Active nosebleed left side. Blood in the posterior pharynx. Dried blood on the right naris. normocephalic and atraumatic Eyes PERRL and EOMs intact bilaterally Neck no lymphadenopathy, supple, no meningeal signs and no JVD Resp No normal respiratory effort and No clear to auscultation bilaterally Auscultation: wheezes; Negative for rales or rhonchi Cardio S1 normal heart sound, S2 normal heart sound and no murmurs Rate: regular rate Rhythm: regular rhythm GI non-tender, non-distended and no masses Inspection: Negative for abdominal distention Auscultation: normoactive bowel sounds Palpation: soft; Negative for tender or guarding Back/Spine no CVA tenderness and normal ROM Extremity normal to inspection and full ROM General Extremety ED: Negative for cyanosis or tenderness General Extremity: Negative for cyanosis Neuro oriented x3 and No CN's II-XII intact bilaterally Sensorium / Orientation: alert, oriented to person, oriented to place and oriented to time; Negative for orientation impaired, lethargic or stuporous Motor Exam: strength 5/5 throughout Psych mental status grossly normal Attitude: No agitated Mood & Affect: Negative for depressed or tearful Skin General Skin Exam: Negative for jaundice or pallor Lesions: no lesions Rashes: no rashes MDM MDM MDM Narrative Medical decision making narrative: 64-year-old smoker diagnosed with Covid recently. Complaining of nosebleed intermittent since on Plavix. Placed cotton balls soaked with Afrin on both sides of her nose. Repeat exam at 5 PM patient's nosebleed is completely resolved. There is no blood currently her posterior pharynx. There is no active bleeding from her nose. There is an obvious source on the left naris septum at [place] backs plexus. I placed a Merocel pack coated with bacitracin ointment in her left naris. She tolerated it well. Nurses will place a dressing she will be discharged. She was instructed to pull her packing out 3 days. She will be placed on doxycycline twice a day for 3 days. She has multiple antibiotic allergies. She knows to return if worse. Or follow-up with ENT as needed. Discharge Plan Triage Chief Complaint: Nosebleed ED Provider: Derek Tripathi Dx/Rx/DC Orders Clinical Impression: Anterior epistaxis Instructions: ED Epistaxis (Adult) Prescriptions: New doxycycline hyclate 100 mg capsule 100 mg PO BID 3 Days Qty: 6 RF: 0 No Action sertraline 100 mg tablet 100 mg PO DAILY RF: 0 bupropion HCl 300 MG tablet extended release 24 hr 300 mg PO DAILY RF: 0 clopidogrel 75 MG tablet 75 mg PO DAILY RF: 0 simvastatin 20 MG tablet 20 mg PO QHS RF: 0 lorazepam 0.5 MG tablet 0.5 mg PO BID PRN PRN (Reason: Anxiety) RF: 0 hydrochlorothiazide 25 MG tablet 25 mg PO DAILY RF: 0 losartan 100 MG tablet 100 mg PO DAILY RF: 0 carvedilol 6.25 mg tablet 6.25 mg PO TID RF: 0 isosorbide mononitrate 30 mg tablet extended release 24 hr 30 mg PO QAM Qty: 30 RF: 12 Primary Care Provider: Manuel Mortensen Referrals: Dangelo Quinonez MD [STAFF PHYSICIAN] - 3-5 Days (3 days) Manuel Mortensen [Primary Care Provider] - Activity Restrictions/Additional Instructions: Pull the left nasal packing out in 3 days on Thursday evening. Direct pressure if rebleeds. Return if unable to stop the bleeding. Antibiotic doxycycline 1 pill twice a day until the packing is pulled out. Hold your Plavix the next 2 days. Follow-up with the ear nose and throat Dr. Dangelo Quinonez as needed. Disposition Disposition: Home, Self Care
[2020-12-08 17:14] VITALS: BP 138/72; PULSE 79; RESP 16; O2SAT 93
== END 2020-12-08 17:15 | disposition home or self-care (01) ==
PROVIDERS: Emergency Provider Emergency Medicine
DX: R04.0 Epistaxis (principal); I10 Essential (primary) hypertension; E66.01 Morbid (severe) obesity due to excess calories; Z68.42 Body mass index [BMI] 45.0-49.9, adult; I25.10 Atherosclerotic heart disease of native coronary artery without angina pectoris; J44.9 Chronic obstructive pulmonary disease, unspecified; F41.9 Anxiety disorder, unspecified; I25.2 Old myocardial infarction; E78.00 Pure hypercholesterolemia, unspecified; E11.9 Type 2 diabetes mellitus without complications; Z86.718 Personal history of other venous thrombosis and embolism; Z85.42 Personal history of malignant neoplasm of other parts of uterus; Z95.1 Presence of aortocoronary bypass graft; Z79.02 Long term (current) use of antithrombotics/antiplatelets; Z79.899 Other long term (current) drug therapy; F17.210 Nicotine dependence, cigarettes, uncomplicated
CPT/HCPCS: 30901; 99282

== ENCOUNTER 2020-12-09 02:33 | Emergency (ER) | payer OTHER, SELFPAY ==
[2017-07-08 11:20] VITALS: BMI 52.1
[2020-12-09 02:35] VITALS: BP 159/75; PULSE 69; RESP 20; TEMP 36.4; O2SAT 92; BMI 49.8
--- NOTE | 2020-12-09 03:01 | EX.ED.DYSGE1 ---
HPI History of Present Illness Chief Complaint: Nosebleed Informant: patient Narrative Narrative: Intermittent nosebleed left side for the last 3 days, patient was here almost 10 hours ago, since the nosebleed became worse and had it packed. It was doing well until she sneezed and accidentally sneezed out the packing and the bleeding recurred. It is helped with putting pressure on it from a nasal clamp, but she is unable to get the bleeding to stop. She denies any other symptoms or problems, no lightheadedness or symptoms of blood loss. She was on Plavix and has been advised to stop that so she has not taken it since she was last here. She is not swallowing blood now. [facility] Medical History Abnormal stress test Anxiety state Atherosclerotic heart disease of [place] coronary artery without angina pectoris COPD (chronic obstructive pulmonary disease) Diverticulosis Encephalitis Essential hypertension History of DVT (deep vein thrombosis) History of uterine cancer Morbid obesity Old myocardial infarction Pure hypercholesterolemia Tobacco use disorder Type 2 diabetes mellitus Home Medications sertraline 100 mg tablet 100 mg PO DAILY 07/02/17 [History Last Taken 08/17/18] isosorbide mononitrate 30 mg tablet,extended release 24 hr 30 mg PO QAM #30 tab 07/08/17 [Rx Last Taken 08/18/18] bupropion HCl 300 mg PO DAILY 07/20/18 [History Last Taken 08/18/18] clopidogrel 75 mg PO DAILY 08/18/18 [History Last Taken 08/18/18] simvastatin 20 mg PO QHS 08/18/18 [History Last Taken 08/17/18] hydrochlorothiazide 25 mg PO DAILY 10/31/19 [History Last Taken Unknown] lorazepam 0.5 mg PO BID PRN PRN 10/31/19 [History Last Taken Unknown] losartan 100 mg PO DAILY 10/31/19 [History Last Taken Unknown] carvedilol 6.25 mg PO TID 12/08/20 [History Last Taken Unknown] doxycycline hyclate 100 mg PO BID 3 Days #6 cap 12/08/20 [Rx Last Taken Unknown] Allergy/AdvReac Type Severity Reaction Status Date / Time cephalexin [From Keflex] Allergy Severe Rash Verified 12/08/20 16:22 levofloxacin [From Levaquin] Allergy Severe Rash Verified 12/08/20 16:22 niacin Allergy Severe Rash Verified 12/08/20 16:22 Penicillins Allergy Severe Anaphylaxis Verified 12/08/20 16:22 Sulfa (Sulfonamide Allergy Severe Rash Verified 12/08/20 16:22 Antibiotics) citalopram [From Celexa] AdvReac Severe Rash Verified 12/08/20 16:22 Estrogens AdvReac Severe blood clots Verified 12/08/20 16:22 rosuvastatin [From Crestor] AdvReac Severe myalgias Verified 12/08/20 16:22 oral contraceptives AdvReac Severe Unknown Uncoded 12/08/20 16:22 Family History Father CAD (coronary artery disease) Cancer Prostate and Bladder Mother CVA (cerebral vascular accident) Hypertension Surgical History Aortocoronary bypass status (~10/31/11) History of tonsillectomy History of total hysterectomy History of total mastectomy of left breast (~08/2018) History of tubal ligation Social History Smoking Status: Current every day smoker tobacco type: cigarettes alcohol intake: never substance use type: does not use ROS ROS ED Constitutional Constitutional ED: Denies chills or fever(s) ENT ENT ED: Reports epistaxis and nasal congestion; Denies facial pain Cardiovascular Cardiovascular: Denies chest pain or palpitations Respiratory/Chest Respiratory/Chest: Denies cough or dyspnea Gastrointestinal Gastrointestinal: Denies diarrhea, melena, nausea or vomiting Integumentary Denies abscess or rash Hematologic/Lymphatic Hematologic/Lymphatic: Reports easy bleeding and easy bruising EXAM Physical Exam Const Vital Signs: 12/09/20 02:35 Temperature 97.6 F L Temperature Source Temporal Pulse Rate 69 Respiratory Rate 20 H Blood Pressure 159/75 H Blood Pressure Mean 103 Pulse Ox 92 Oxygen Delivery Method Room Air Positive well nourished, well developed and obese General Appearance ED: well developed and NAD Nutritional Appearance: obese HEENT Reports moist mucous membranes HEENT Narrative: Active mild left epistaxis nonpulsatile. Source of bleeding is not visible on anterior inspection. No posterior oropharyngeal bleeding. Right side is clear. Negative for trauma or tenderness Eyes PERRL and EOMs intact bilaterally Neck no lymphadenopathy and supple Resp normal respiratory effort and clear to auscultation bilaterally Cardio regular rate, regular rhythm and no murmurs Neuro oriented x3, CN's II-XII intact bilaterally and no sensory deficits noted Sensorium / Orientation: alert Motor Exam: strength 5/5 throughout Psych mental status grossly normal Skin no rashes or lesions noted and no wounds MDM MDM MDM Narrative Medical decision making narrative: I gave patient options, she wanted to try medications to the nose to see if we can get the bleeding to stop without need for a packing, she would rather just have a repeat packing placed so that she could leave, which I think is totally reasonable. I did not take the time to pretreat her with local anesthetics, and she was okay with that. See the procedure note. She had good hemostasis after being observed for 30-40 minutes after the packing was placed, and is comfortable going home. Procedures Other Procedures Procedure(s): Epistaxis care: Long Merocel packing with airway placed after patient evacuated her nasal cavity of clots, pretreatment only with lubricant on the packing, it was placed without difficulty, with saline placed against the foam inflating it afterwards, with good hemostasis and no complications. Discharge Plan Triage Chief Complaint: Nosebleed ED Provider: Alexis Keys Dx/Rx/DC Orders Clinical Impression: Acute anterior epistaxis Instructions: ED Epistaxis (Adult) Prescriptions: No Action sertraline 100 mg tablet 100 mg PO DAILY RF: 0 bupropion HCl 300 MG tablet extended release 24 hr 300 mg PO DAILY RF: 0 clopidogrel 75 MG tablet 75 mg PO DAILY RF: 0 simvastatin 20 MG tablet 20 mg PO QHS RF: 0 lorazepam 0.5 MG tablet 0.5 mg PO BID PRN PRN (Reason: Anxiety) RF: 0 hydrochlorothiazide 25 MG tablet 25 mg PO DAILY RF: 0 losartan 100 MG tablet 100 mg PO DAILY RF: 0 carvedilol 6.25 mg tablet 6.25 mg PO TID RF: 0 doxycycline hyclate 100 mg capsule 100 mg PO BID 3 Days Qty: 6 RF: 0 isosorbide mononitrate 30 mg tablet extended release 24 hr 30 mg PO QAM Qty: 30 RF: 12 Primary Care Provider: Manuel Mortensen Referrals: Flo Wright MD [STAFF PHYSICIAN] - (3 days for reevaluation and packing removal, or your own ENT if you already see one) Manuel Mortensen [Primary Care Provider] - Disposition Disposition: Home, Self Care
[2020-12-09 03:26] VITALS: PULSE 72; RESP 18; O2SAT 96
== END 2020-12-09 03:27 | disposition home or self-care (01) ==
PROVIDERS: Emergency Provider Emergency Medicine
DX: R04.0 Epistaxis (principal); I10 Essential (primary) hypertension; E11.9 Type 2 diabetes mellitus without complications; E66.01 Morbid (severe) obesity due to excess calories; Z68.42 Body mass index [BMI] 45.0-49.9, adult; E78.00 Pure hypercholesterolemia, unspecified; F41.1 Generalized anxiety disorder; I25.10 Atherosclerotic heart disease of native coronary artery without angina pectoris; I25.2 Old myocardial infarction; Z85.42 Personal history of malignant neoplasm of other parts of uterus; Z86.718 Personal history of other venous thrombosis and embolism; Z79.02 Long term (current) use of antithrombotics/antiplatelets; Z79.899 Other long term (current) drug therapy; F17.210 Nicotine dependence, cigarettes, uncomplicated
CPT/HCPCS: 30901; 99282; A4216

== ENCOUNTER 2021-03-04 06:43 | Inpatient (IN) | payer MEDICARE, SELFPAY ==
[2017-07-08 11:20] VITALS: BMI 52.1
[2021-03-04] VITALS (29 sets, daily range): BP systolic 109–182; BP diastolic 63–135; PULSE 68–101; RESP 12–28; TEMP 36.1–36.9; O2SAT 91–99; BMI 49.8; BMI 48.9
--- NOTE | 2021-03-04 07:04 | EKG12_ITS ---
Test Reason : CP Blood Pressure : / mmHG Vent. Rate : 089 BPM Atrial Rate : 089 BPM P-R Int : 184 ms QRS Dur : 126 ms QT Int : 390 ms P-R-T Axes : 037 007 073 degrees QTc Int : 474 ms Normal sinus rhythm Non-specific intra-ventricular conduction block Abnormal ECG Confirmed by BELLA IRIZARRY, MARCO ([id number]), legal editor CARLITO BAUER ([id number]) on 03/05/2021 9:55:31 AM Referred By: ABIOLA Confirmed By:MARCO BLANCO MD
--- NOTE | 2021-03-04 07:06 | ED.VIS.DYS ---
HPI History of Present Illness Chief Complaint: Shortness of Breath Informant: patient Narrative Narrative: Patient had arrived by EMS. BiPAP has been placed before my arrival. My understanding is her oxygen saturations were 70% at home. She has been getting more short of breath for the last month. She states she has been on oxygen since about the fourth of this month. She still getting short of breath. Is gotten worse in the last 3 or 4 days. She has a cough but no productivity. She does have chest tightness diffusely. She is on 4 L of oxygen. She does have COPD. She has been using inhaler and rescue inhaler. She denies fevers. She does have leg swelling but is not worse. There is no history of CHF. There is history of heart disease and prior bypass. She was also recently diagnosed with lung cancer. She states she was just going to have a meeting this week to decide what to do about this. I do not know the stage or involvement. She denies history of DVT or PE. It sounds like she is on at least Plavix. It sounds like she was vaccinated for Covid in January. I cannot get if this was the vaccine or booster. [facility] Medical History Abnormal stress test Anxiety state Atherosclerotic heart disease of [place] coronary artery without angina pectoris COPD (chronic obstructive pulmonary disease) Diverticulosis Encephalitis Essential hypertension History of DVT (deep vein thrombosis) History of uterine cancer Morbid obesity Old myocardial infarction Pure hypercholesterolemia Tobacco use disorder Type 2 diabetes mellitus Home Medications sertraline 100 mg tablet 100 mg PO DAILY 07/02/17 [History Last Taken 08/17/18] isosorbide mononitrate 30 mg tablet,extended release 24 hr 30 mg PO QAM #30 tab 07/08/17 [Rx Last Taken 08/18/18] bupropion HCl 300 mg PO DAILY 07/20/18 [History Last Taken 08/18/18] clopidogrel 75 mg PO DAILY 08/18/18 [History Last Taken 08/18/18] simvastatin 20 mg PO QHS 08/18/18 [History Last Taken 08/17/18] hydrochlorothiazide 25 mg PO DAILY 10/31/19 [History Last Taken Unknown] lorazepam 0.5 mg PO BID PRN PRN 10/31/19 [History Last Taken Unknown] losartan 100 mg PO DAILY 10/31/19 [History Last Taken Unknown] carvedilol 6.25 mg PO BID 12/08/20 [History Last Taken Unknown] Allergy/AdvReac Type Severity Reaction Status Date / Time cephalexin [From Keflex] Allergy Severe Rash Verified 03/04/21 06:51 levofloxacin [From Levaquin] Allergy Severe Rash Verified 03/04/21 06:51 niacin Allergy Severe Rash Verified 03/04/21 06:51 Penicillins Allergy Severe Anaphylaxis Verified 03/04/21 06:51 Sulfa (Sulfonamide Allergy Severe Rash Verified 03/04/21 06:51 Antibiotics) citalopram [From Celexa] AdvReac Severe Rash Verified 03/04/21 06:51 Estrogens AdvReac Severe blood clots Verified 03/04/21 06:51 rosuvastatin [From Crestor] AdvReac Severe myalgias Verified 03/04/21 06:51 oral contraceptives AdvReac Severe Unknown Uncoded 03/04/21 06:51 Family History Father CAD (coronary artery disease) Cancer Prostate and Bladder Mother CVA (cerebral vascular accident) Hypertension Surgical History Aortocoronary bypass status (~10/31/11) History of tonsillectomy History of total hysterectomy History of total mastectomy of left breast (~08/2018) History of tubal ligation Social History Smoking Status: Former smoker alcohol intake: never substance use type: does not use ROS ROS ED Constitutional Constitutional ED: Denies chills, fever(s) or sweats ENT ENT ED: Denies rhinorrhea Cardiovascular Cardiovascular: Reports chest pain; Denies palpitations or racing heartbeat Respiratory/Chest Respiratory/Chest: Reports cough and dyspnea; Denies sputum Gastrointestinal Gastrointestinal: Denies diarrhea, nausea or vomiting Genitourinary Genitourinary ED: Denies dysuria Musculoskeletal Musculoskeletal: Denies myalgias Integumentary Denies rash Neurologic Neurologic: Denies headache(s) Endocrine Endocrinology: Denies polydipsia or polyuria Hematologic/Lymphatic Hematologic/Lymphatic: Denies easy bleeding or easy bruising Allergic/Immunologic Allergic/Immunologic ED: Denies urticaria EXAM Physical Exam Const Vital Signs: 03/04/21 06:44 03/04/21 06:52 03/04/21 07:00 Temperature 97.7 F L Temperature Source Temporal Pulse Rate 92 81 Respiratory Rate 23 H 27 H Respiratory Effort Short of Breath Labored Respiratory Pattern Tachypnea Tachypnea Blood Pressure 153/84 H Blood Pressure Mean 107 Pulse Ox 91 94 93 Oxygen Delivery Method Non-Rebreather Non-Rebreather Oxygen Flow Rate (L/min) 15 15 Fraction of Inspired Oxygen (FIO2) 60 03/04/21 07:22 03/04/21 08:19 03/04/21 09:54 Temperature Temperature Source Pulse Rate 88 88 92 Respiratory Rate 23 H 24 H 20 H Respiratory Effort Respiratory Pattern Tachypnea Blood Pressure Blood Pressure Mean Pulse Ox 92 92 Oxygen Delivery Method Bi-pap Bi-pap Oxygen Flow Rate (L/min) Fraction of Inspired Oxygen (FIO2) 03/04/21 09:58 Temperature Temperature Source Pulse Rate 92 Respiratory Rate 28 H Respiratory Effort Respiratory Pattern Tachypnea Blood Pressure Blood Pressure Mean Pulse Ox 94 Oxygen Delivery Method Oxygen Flow Rate (L/min) Fraction of Inspired Oxygen (FIO2) 60 Positive well nourished, well developed and obese Constitutional Narrative: Patient looks surprisingly comfortable awake and alert on BiPAP. General Appearance ED: well developed and NAD; Negative for pallor Nutritional Appearance: obese HEENT Reports moist mucous membranes atraumatic Eyes General Eye ED: Negative for pale conjunctiva or scleral icterus Neck no meningeal signs and no JVD Resp normal respiratory effort Resp Narrative: Respiratory effort is relatively normal and she does tolerate BiPAP quite well. Certainly, without BiPAP her respiratory effort would likely be increased. Breath sounds are decreased and there is wheezing. I do not hear rales. I do not hear rhonchi. Auscultation: wheezes; Negative for rales or rhonchi Cardio regular rate, regular rhythm and no murmurs Cardio Narrative: Well-healed median sternotomy scar. Bit distant cardiac tones over breath sounds. GI non-tender and non-distended Auscultation: normoactive bowel sounds Palpation: soft Extremity Extremity Narrative: She does have lower extremity edema and a lot of chronic venous stasis changes. However they do not look acutely edematous. They are not tender or notably asymmetric. No distended veins. Neuro oriented x3 Sensorium / Orientation: alert; Negative for confused, lethargic or stuporous Psych mental status grossly normal Skin no wounds Skin Narrative: No diaphoresis. General Skin Exam: Negative for jaundice or pallor Lesions: no lesions Rashes: no rashes MDM MDM MDM Narrative Medical decision making narrative: Patient does have elevated white count. She also has low sodium. I am concerned that this could even be due to bronchogenic cancer and SIADH. She reportedly had a CT scan and then biopsy of a baseball size lesion in the right lung at [place] just recently. She was going to follow-up this week for discussion of treatment options. D-dimer is elevated. With this in her history of cancer and dyspnea and hypoxia we did a CTA. This shows no pulmonary embolus but does show signs of infiltrative process. She is treated with antibiotics. Lactate is negative. BNP does not show any significant elevated. I discussed case with hospitalist. With her hypoxia, BiPAP we will place her in the ICU. She also has significant hyponatremia. Lab Data Attestation: I reviewed the patient's lab results. Labs: Laboratory Results - last 24 hr 03/04/21 03/04/21 03/04/21 07:00 07:00 07:00 WBC 13.6 H RBC 6.12 H Hgb 16.0 H Hct 48.2 H MCV 78.8 L MCH 26.1 L MCHC 33.2 RDW Std Deviation 42.1 RDW Coeff of Melina 15.0 H Plt Count 345 MPV 10.4 Immature Gran % (Auto) 0.700 Neut % (Auto) 82.6 H Lymph % (Auto) 5.5 L Carver % (Auto) 9.5 Eos % (Auto) 1.0 Baso % (Auto) 0.7 Absolute Neuts (auto) 11.3 H Absolute Lymphs (auto) 0.75 L Nucleated RBC % 0 D-Dimer Quant (PE/DVT) Cancelled Sodium 122 L Potassium 3.7 Chloride 84 L Carbon Dioxide 30.0 Anion Gap 8 BUN 14 Creatinine 0.86 Estim Creat Clear Calc 53.95 Est GFR (MDRD) Af Amer 85 Est GFR (MDRD) Non-Af 70 BUN/Creatinine Ratio 16.2 Glucose 106 Lactic Acid Calcium 10.1 Troponin I High Sens 44 B-Natriuretic Peptide 03/04/21 03/04/21 03/04/21 07:00 07:00 07:45 WBC RBC Hgb Hct MCV MCH MCHC RDW Std Deviation RDW Coeff of Melina Plt Count MPV Immature Gran % (Auto) Neut % (Auto) Lymph % (Auto) Carver % (Auto) Eos % (Auto) Baso % (Auto) Absolute Neuts (auto) Absolute Lymphs (auto) Nucleated RBC % D-Dimer Quant (PE/DVT) 1.83 H* Sodium Potassium Chloride Carbon Dioxide Anion Gap BUN Creatinine Estim Creat Clear Calc Est GFR (MDRD) Af Amer Est GFR (MDRD) Non-Af BUN/Creatinine Ratio Glucose Lactic Acid 0.8 Calcium Troponin I High Sens B-Natriuretic Peptide 100.8 H Radiography Diagnostic Testing: Clinical Impression(s) from Imaging Studies Chest X-Ray 03/04/21 07:35 IMPRESSION: 1. Dense opacification of the right chest with overlying devices. Differential considerations include a mass versus dense airspace disease. 2. Heterogeneous left-sided airspace disease and what may represent some pulmonary congestion. Electronically Signed: Angela Childers MD at 7:54 EST , Service support , Chest CTA 03/04/21 08:23 IMPRESSION: No evidence of pulmonary embolism. Moderate size right pleural effusion with consolidation and volume loss in the right upper and right lower lobes. Right hilar and mediastinal lymphadenopathy. Pulmonary infiltrates in the left hemithorax. Pneumonitis associated with Covid should be ruled out. Electronically Signed: Raza Keita MD at 9:14 EST , Service support , EKG Initial EKG: Comments: EKG done for dyspnea read by me shows normal sinus rhythm with overall rate of 89. There is no ectopy. Mild diffuse nonspecific ST and T wave changes but no sign of infarct or ischemia. SC interval was normal. QRS duration is long with with nonspecific intraventricular conduction delay. QTc is normal at 474. This is similar to prior EKGs of 18 August 2018 and 02 August 2018. Discharge Plan Triage Chief Complaint: Shortness of Breath Other Complaint: Chest Pain ED Provider: Pérez Winn Dx/Rx/DC Orders Clinical Impression: Acute respiratory failure with hypoxia, Pneumonia, Lung cancer, Hyponatremia Primary Care Provider: Manuel Mortensen Disposition Disposition: Acute Care Hospital [facility]
[2021-03-04 07:20] LABS: Absolute Lymphocyte Count 0.75 X10^3/uL (0.83-4.51); Absolute Neutrophil Count 11.3 X10^3/uL (2.0-7.7); Basophil% 0.7 % (0-1); Eosinophil# 0.13 X10^3/uL; Hematocrit 48.2 % (37-47); Lymphocyte # 0.75 X10^3/ul (0.83-4.51); Lymphocyte % 5.5 % (19-41); Mean Corp Hgb Conc 33.2 g/dL (32-36); Mean Corpuscular Hgb 26.1 pg (27.0-32.0); Mean Corpuscular Volume 78.8 fL (81-99); Mean Platelet Vol. 10.4 fl (6.2-12.0); Monocyte% 9.5 % (0-10); NRBC Flagged by Analyzer 0 % (0-5); Neutrophil # 11.27 X10^3/uL (2.7-7.7); Neutrophil % 82.6 % (47-70); Platelet Count 345 K/mm3 (150-450); RBC Distribution Width SD 42.1 fl (35.1-43.9); Red Blood Count 6.12 M/mm3 (4.2-5.4); White Blood Count 13.6 K/mm3 (4.4-11.0)
[2021-03-04] MEDS: Albuterol 2.5 MG/3 ML VIAL.NEB. INHALATION (07:21)
[2021-03-04] MEDS: Ipratropium/Albuterol Sulfate 3 ML AMPUL.NEB INHALATION ×3 (07:22→19:40)
--- NOTE | 2021-03-04 07:35 | RAD_ITS ---
STUDY: X-RAY CHEST REASON FOR EXAM: Female, 65 years old patient with shortness of breath. TECHNIQUE: Single AP portable view of the chest. COMPARISON: Chest radiograph dated 08/18/2018. FINDINGS: The patient is status post sternotomy. The there may be a Vacutainer-type drainage process in the right upper chest. There is dense opacification in the right lung that may represent either airspace disease or mass. The lungs are hyperexpanded. There is heterogeneous airspace disease in the left lung. There may be some elevation of the right hemidiaphragm. There may be a right-sided pleural effusion. There is borderline cardiomegaly. Normal mediastinum and phu. Normal visualized pulmonary arteries. There is atherosclerotic calcification of the aortic arch with tortuosity. There is demineralization of the osseous structures. Normal visualized ribs, clavicles, and shoulders. There is no demonstrated abnormality of the visualized soft tissue structures of the upper abdomen. RAD/Chest 1 View (Portable) IMPRESSION: 1. Dense opacification of the right chest with overlying devices. Differential considerations include a mass versus dense airspace disease. 2. Heterogeneous left-sided airspace disease and what may represent some pulmonary congestion. Electronically Signed: Angela Childers MD at 7:54 EST , Service support ,
[2021-03-04 07:42] LABS: Anion Gap 8 (5-15); BUN 14 mg/dL (7-18); BUN/Creat Ratio 16.2 RATIO (10-20); Calcium,Total 10.1 mg/dL (8.5-10.1); Chloride 84 mmol/L (98-107); Creatinine, Serum 0.86 mg/dL (0.55-1.02); EST Glomerular Filtration Rate 70 mL/min (>60); Est Glom Filt Rate - Afr Amer 85 mL/min (>60); Estimated Creatinine Clearance 53.95 ml/min; Glucose 106 mg/dL (74-106); Lactic Acid 0.8 mmol/L (0.4-1.9); Potassium 3.7 mmol/L (3.5-5.1); Sodium Level 122 mmol/L (136-145); Troponin-I HS 44 pg/mL (3.0-54.0)
[2021-03-04 08:01] LABS: BNP,B-Type NATRIURETIC PEPTIDE 100.8 pg/mL (0-100)
[2021-03-04 08:09] LABS: D-Dimer Quantitative (DVT/PE) 1.83 FEU/ug/m (0.27-0.49)
--- NOTE | 2021-03-04 08:23 | CT_ITS ---
STUDY: CTA CHEST REASON FOR EXAM: Female, 65 years old. 3 day history of short of breath. History of a lung cancer and breast cancer. Prior left mastectomy. RADIATION DOSAGE (If Supplied By Facility): CTDIvol = ( 18.6 ) mGy, DLP = ( 527.09 ) mGycm TECHNIQUE: The examination was performed with the intravenous administration of IV 100mL [id number]-370. Post-processing of the angiographic images was performed, with multiplanar reformation and 3D reconstruction. Individualized dose optimization techniques were used for this CT. COMPARISON: Comparison is made with prior chest radiograph done earlier in the day. FINDINGS: Normal enhancement of the main pulmonary artery and right and left pulmonary arteries. Normal enhancement of the bilateral peripheral pulmonary arteries. There is no demonstrated pulmonary embolism. There is atherosclerotic calcification of the aortic arch with tortuosity. There is no demonstrated aortic dissection. Sternal cerclage wires and vascular clips are present from a prior sternotomy and coronary artery bypass graft procedure (CABG). There are calcifications of the coronary arteries. Mediastinal lymphadenopathy. Right hilar adenopathy. Normal hilar regions. Normal visualized trachea and bronchi. Volume loss in the right hemithorax. Moderate size right pleural effusion. There is consolidation and volume loss in the right lower lobe as well as in the right upper lobe. Patchy alveolar infiltrates in the left lung worse in the left upper lobe. Pneumonitis associated with Covid .should be ruled out. Normal chest wall structures. There are degenerative changes of thoracic spine. There is a 1.1 cm hypodensity in the anterior right lobe of the liver. CT/CTA Chest W/WO Contrast IMPRESSION: No evidence of pulmonary embolism. Moderate size right pleural effusion with consolidation and volume loss in the right upper and right lower lobes. Right hilar and mediastinal lymphadenopathy. Pulmonary infiltrates in the left hemithorax. Pneumonitis associated with Covid should be ruled out. Electronically Signed: Raza Keita MD at 9:14 EST , Service support ,
--- NOTE | 2021-03-04 10:14 | PCM.HP.STD ---
HPI - General General Date of Admission: 03/04/21 Date of Service: 03/04/21 Chief Complaint: Dyspnea, worsening. HPI Narrative The patient is a 65 y/o F w/ PMHx: CAD s/p CABG, HTN, HLD, Chronic COPD w/ Chronic Hypoxic Respiratory Failure (4L NC), Tobacco use, Diabetes mellitus type II, Hx VTE, Hx Breast CA s/p L mastectomy, Hx Uterine CA s/p total hysterectomy, recent evaluation at [facility] for respiratory distress with newly diagnosed R sided lung mass but unclear type with planned per her report follow-up with Pulmonary medicine for cancer treatment plan of care who now presents to the [facility] ED on 03/04/21 with worsening dyspnea, increased work of breathing, ongoing chronic cough without marked sputum without fever or chills, not improving prompting ED evaluation. Patient of note had COVID 11/2020 per record. Patient does report that she is only started being on 4 L nasal cannula since beginning of the month. She has continued to smoke cigarettes. Work-up in the ED included T 97.9, heart rate 92, BP 153/84, respiratory rate 23, no to be significantly hypoxic with 70% on her home 4 L at home presenting on a nonrebreather noted to be 91% on 15 L initially eventually transition to BiPAP noted to be 92% on 60% FiO2, CBC with the procedure 13.6, and 116, platelet 345 with left shift and lymphopenia, D-dimer 1.83, CMP with sodium 122, chloride 84 otherwise not marked appearing, lactic acid 0.8, magnesium 2.2, Phos 2.5, BNP 100.8, rapid Covid antigen negative, chest x-ray with dense opacification right chest with overlying devices, heterogeneous left-sided airspace disease possibly pulmonary congestion, follow-up CTPA with no evidence of PE, moderate sized right pleural effusion with consolidation volume loss right upper and lower right lower lobes, right hilar mediastinal lymphadenopathy, pulmonary infiltrates left hemithorax. In the ED as noted patient transition to BiPAP, administered IV meropenem and IV vancomycin. Records requested from [facility]. [facility]LY [facility], [facility] Medical History Abnormal stress test Anxiety state Atherosclerotic heart disease of [place] coronary artery without angina pectoris COPD (chronic obstructive pulmonary disease) Diverticulosis Encephalitis Essential hypertension History of DVT (deep vein thrombosis) History of uterine cancer Morbid obesity Old myocardial infarction Pure hypercholesterolemia Tobacco use disorder Type 2 diabetes mellitus Home Medications sertraline 100 mg tablet 100 mg PO DAILY 07/02/17 [History Last Taken 08/17/18] isosorbide mononitrate 30 mg tablet,extended release 24 hr 30 mg PO QAM #30 tab 07/08/17 [Rx Last Taken 08/18/18] bupropion HCl 300 mg PO DAILY 07/20/18 [History Last Taken 08/18/18] clopidogrel 75 mg PO DAILY 08/18/18 [History Last Taken 08/18/18] simvastatin 20 mg PO QHS 08/18/18 [History Last Taken 08/17/18] hydrochlorothiazide 25 mg PO DAILY 10/31/19 [History Last Taken Unknown] lorazepam 0.5 mg PO BID PRN PRN 10/31/19 [History Last Taken Unknown] losartan 100 mg PO DAILY 10/31/19 [History Last Taken Unknown] carvedilol 6.25 mg PO BID 12/08/20 [History Last Taken Unknown] Allergy/AdvReac Type Severity Reaction Status Date / Time cephalexin [From Keflex] Allergy Severe Rash Verified 03/04/21 06:51 levofloxacin [From Levaquin] Allergy Severe Rash Verified 03/04/21 06:51 niacin Allergy Severe Rash Verified 03/04/21 06:51 Penicillins Allergy Severe Anaphylaxis Verified 03/04/21 06:51 Sulfa (Sulfonamide Allergy Severe Rash Verified 03/04/21 06:51 Antibiotics) citalopram [From Celexa] AdvReac Severe Rash Verified 03/04/21 06:51 Estrogens AdvReac Severe blood clots Verified 03/04/21 06:51 rosuvastatin [From Crestor] AdvReac Severe myalgias Verified 03/04/21 06:51 oral contraceptives AdvReac Severe Unknown Uncoded 03/04/21 06:51 Family History Father CAD (coronary artery disease) Cancer Prostate and Bladder Mother CVA (cerebral vascular accident) Hypertension Surgical History Aortocoronary bypass status (~10/31/11) History of tonsillectomy History of total hysterectomy History of total mastectomy of left breast (~08/2018) History of tubal ligation Social History (Updated 03/04/21 @ 14:[address] Elvia Dixon MD) household members: spouse Smoking Status: Current every day smoker tobacco type: cigarettes quit status: considering quitting alcohol intake: never substance use type: does not use ROS ROS Narrative Admission Review of Systems: CONSTITUTIONAL: No weight loss, fever, chills, + weakness or fatigue. HEENT: Eyes: No visual loss, blurred vision, double vision or yellow sclerae. Ears, Nose, Throat: No hearing loss, sneezing, congestion, runny nose or sore throat. SKIN: No rash or itching, lesions, wounds. CARDIOVASCULAR: + Pleuritic discomfort, no palpitations, edema, orthopnea, syncopal events. RESPIRATORY: + shortness of breath, cough without marked sputum, wheezing, No hemoptysis. GASTROINTESTINAL: + anorexia, No nausea, vomiting or diarrhea, abdominal pain, melena, BRBPR. GENITOURINARY: No dysuria, frequency, urgency or retention. NEUROLOGICAL: No headache, dizziness, syncope, paralysis, ataxia, numbness or tingling in the extremities, focal weakness, change in bowel or bladder control, seizure. MUSCULOSKELETAL: + muscle, back pain, joint pain or stiffness. HEMATOLOGIC: No anemia, bleeding or bruising. LYMPHATICS: No enlarged nodes. No history of splenectomy. PSYCHIATRIC: + history of depression or anxiety. ENDOCRINOLOGIC: No reports of sweating, cold or heat intolerance. No polyuria or polydipsia. ALLERGIES: No history of asthma, hives, eczema or rhinitis. Vital Signs Vital Signs Vital Signs: 03/04/21 06:44 03/04/21 06:52 03/04/21 07:00 Temperature 97.7 F L Temperature Source Temporal Pulse Rate 92 81 Respiratory Rate 23 H 27 H Respiratory Effort Short of Breath Labored Respiratory Pattern Tachypnea Tachypnea Blood Pressure 153/84 H Blood Pressure Mean 107 Pulse Ox 91 94 93 Oxygen Delivery Method Non-Rebreather Non-Rebreather Oxygen Flow Rate (L/min) 15 15 Fraction of Inspired Oxygen (FIO2) 60 03/04/21 07:22 03/04/21 08:19 03/04/21 09:54 Temperature Temperature Source Pulse Rate 88 88 92 Respiratory Rate 23 H 24 H 20 H Respiratory Effort Respiratory Pattern Tachypnea Blood Pressure Blood Pressure Mean Pulse Ox 92 92 Oxygen Delivery Method Bi-pap Bi-pap Oxygen Flow Rate (L/min) Fraction of Inspired Oxygen (FIO2) 03/04/21 09:58 Temperature Temperature Source Pulse Rate 92 Respiratory Rate 28 H Respiratory Effort Respiratory Pattern Tachypnea Blood Pressure Blood Pressure Mean Pulse Ox 94 Oxygen Delivery Method Oxygen Flow Rate (L/min) Fraction of Inspired Oxygen (FIO2) 60 Weight Weight: 281 lb 4.957 oz Body Mass Index (BMI) 49.8 Physical Exam Narrative Physical Examination: General: Awake, alert, oriented x 3 and cooperative, seated upright in the ED bed, increased work of breathing and accessory muscle usage, evident distress with BiPAP in place, seated at the bedside leaning over tripoding. Skin: Normal color, normal turgor, no icterus, no cyanosis. HEENT: AT/NC, EOMI, PERRLA, dry MM, BiPAP in place, no carotid bruits, difficult to discern JVD secondary to very thickened neck. Lungs: Severely diminished, greater bases, right mid to lower significantly diminished, increased respiratory rate and accessory muscle usage, evidence of distress, BiPAP in place, expiratory wheezing noted. Heart: Mildly tachycardic with regular rhythm; no gallop, rub audible. Abdomen: Soft, morbidly obese, NTTP, ND, distant hypoactive BS, unable to discern HSM secondary to morbidly obese habitus. Extremities: No cyanosis, no clubbing, bilateral pedal to distal calabrese edema. Neurological: Patient awake, alert, oriented as noted, cognitive function intact; pupils equally reactive to light and accommodation, cranial nerves II-XII grossly normal, moving all 4 extremities, no focal deficits, strength severely global decrease secondary to acute presentation. Psychiatric: Affect appears fatigued, evidence of respiratory distress, no acute evidence of depressive or anxiety feelings. Results Lab / Micro Data Result Diagrams: 03/04/21 07:00 03/04/21 07:00 Labs: Laboratory Results - last 24 hr 03/04/21 07:00: WBC 13.6 H, RBC 6.12 H, Hgb 16.0 H, Hct 48.2 H, MCV 78.8 L, MCH 26.1 L, MCHC 33.2, RDW Std Deviation 42.1, RDW Coeff of Melina 15.0 H, Plt Count 345, MPV 10.4, Immature Gran % (Auto) 0.700, Neut % (Auto) 82.6 H, Lymph % (Auto) 5.5 L, [place] % (Auto) 9.5, Eos % (Auto) 1.0, Baso % (Auto) 0.7, Absolute Neuts (auto) 11.3 H, Absolute Lymphs (auto) 0.75 L, Nucleated RBC % 0 03/04/21 07:00: D-Dimer Quant (PE/DVT) Cancelled 03/04/21 07:00: Sodium 122 L, Potassium 3.7, Chloride 84 L, Carbon Dioxide 30.0, Anion Gap 8, BUN 14, Creatinine 0.86, Estim Creat Clear Calc 53.95, Est GFR (MDRD) Af Amer 85, Est GFR (MDRD) Non-Af 70, BUN/Creatinine Ratio 16.2, Glucose 106, Calcium 10.1, Troponin I High Sens 44 03/04/21 07:00: Lactic Acid 0.8 03/04/21 07:00: B-Natriuretic Peptide 100.8 H 03/04/21 07:45: D-Dimer Quant (PE/DVT) 1.83 H* Micro: Microbiology 03/04/21 07:20 Nasal Secretion SARS-CoV-2 Antigen (Rapid) - Final Radiology Impression Chest X-Ray 03/04/21 07:35 IMPRESSION: 1. Dense opacification of the right chest with overlying devices. Differential considerations include a mass versus dense airspace disease. 2. Heterogeneous left-sided airspace disease and what may represent some pulmonary congestion. Electronically Signed: Angela Childers MD at 7:54 EST , Service support , Chest CTA 03/04/21 08:23 IMPRESSION: No evidence of pulmonary embolism. Moderate size right pleural effusion with consolidation and volume loss in the right upper and right lower lobes. Right hilar and mediastinal lymphadenopathy. Pulmonary infiltrates in the left hemithorax. Pneumonitis associated with Covid should be ruled out. Electronically Signed: Raza Keita MD at 9:14 EST , Service support , Assessment & Plan Assessment/Plan (1) Acute respiratory failure with hypoxia: (2) Pneumonia: QUALIFIERS: Pneumonia type: due to unspecified organism Laterality: bilateral Lung location: unspecified part of lung Qualified Code(s): J18.9 - Pneumonia, unspecified organism (3) Lung cancer: QUALIFIERS: Laterality: right Lung location: unspecified part of lung Qualified Code(s): C34.91 - Malignant neoplasm of unspecified part of right bronchus or lung (4) Hyponatremia: PLAN: The patient is a 65 y/o F w/ PMHx: CAD s/p CABG, HTN, HLD, Chronic COPD w/ Chronic Hypoxic Respiratory Failure (4L NC), Tobacco use, Diabetes mellitus type II, Hx VTE, Hx Breast CA s/p L mastectomy, Hx Uterine CA s/p total hysterectomy, recent evaluation at [facility] for respiratory distress with newly diagnosed R sided lung mass but unclear type with planned per her report follow-up with Pulmonary medicine for cancer treatment plan of care who now presents to the [facility] ED on 03/04/21 with worsening dyspnea, increased work of breathing, ongoing chronic cough without marked sputum without fever or chills, not improving prompting ED evaluation. #1. Acute on Chronic Hypoxic Respiratory Failure secondary to Possible Postobstructive Pneumonia, GN/GP Organism with recently diagnosed R sided Lung Mass (Unclear type, records requested) with suspected and concurrent Acute on Chronic COPD Exacerbation: Will admit to the ICU, maintain on BIPAP, ICU team consulted, continue ATC duonebs, PRN albuterol, initiate and continue IV solumedrol, given allergies will maintain on IV vanc and zosyn pending MRSA screen with de-escalation as able, HOB, IS parameters w/ pending sputum cultures and urine antigens. Bld cx x 2 obtained in the ED. May need to as noted consider diuresis given concurrent suspected SIADH which could assist with effusion. May need to consider thoracentesis and could benefit from diagnostic studies if this route appropriate. Given recent CA diagnosis will also request Oncology consultation as patient does not have any arranged, only Pulmonary follow-up to review treatment options. #2. Acute Hyponatremia suspected secondary to SIADH: Suspect likely SIADH secondary to recently diagnosed underlying lung CA, records requested and possibly acute infection, admission Na 122, will continue to closely monitor, will judiciously hydrate but low threshold to stop and restrict once labs obtained, will request FeNa, Kassie, U/SOsm, TSH/FT4 and AM cortisol, if not improving consider Nephrology consultation if not improving or trending of repeat BMP not improving. If labs more consistent with SIADH then would plan to transition to free water restriction 1.5L daily, given symptoms not severe will hold on hypertonic saline, encourage increased protein/solute intake to assist with renal obligate water loss, continue treatment underlying catalyst, consider lasix administration if BP allows. #3. CAD: Status post prior CABG x 2 DENNIS to LAD, SVG to Diagonal of the LAD 10/31/11, we will continue Plavix, statin, Coreg, losartan regimen. #4. Hypertension: Continue home regimen including Coreg, losartan, isosorbide with hold parameters as needed, PRN hydralazine. Temporarily holding hydrochlorothiazide given labs for hyponatremia although do suspect SIADH there for restriction and possibly even IV Lasix may become necessary. #5. Hyperlipidemia: Continue home statin regimen. #6. Morbid Obesity: Weight loss and lifestyle changes encouraged, #7. Anxiety and depression: We will continue patient home bupropion regimen as well as as needed Ativan with low threshold to hold if any concern for respiratory status. #8. Documented prior history of diabetes mellitus type II: Patient is not on any regimen, will obtain hemoglobin A1c and if appropriate transition to ADA diet with insulin sliding scale and Accu-Cheks. #9. History DVT: Not on chronic anticoagulation. #10. Hx Breast CA, Hx Uterine CA: Patient s/p total hysterectomy and L mastectomy, considered in remission however as noted recent diagnosis of lung cancer, unclear type, records requested. #11. DVT prophylaxis: SCDs, Lovenox. #12. CODE status: Given acute hypoxic respiratory failure, discussed CODE status at length including difference between FULL code, DNR-CCA and DNR-CC status. Following discussions about the differences in these status, requested Full Code. Advanced Care Planning Face to Face Time: 16 minutes. Charges/Coding Visit Charges Inpatient E&M: 33204 Init Hosp L3 Procedures Hospitalists Procedures: 80828 Advncd Care Plan 30 Min
--- NOTE | 2021-03-04 10:15 | NURSING ---
DR MACK FOR DR FUENTES
--- NOTE | 2021-03-04 10:30 | NURSING ---
ICU WHITE RESP FAILURE, HYPOXIA, PNEUMONIA, LUNG CA
[2021-03-04 11:09] LABS: Magnesium 2.2 mg/dL (1.6-2.6); Phosphorus 2.5 mg/dL (2.5-4.9); T4 Free Direct 1.35 ng/dL (0.76-1.46); Thyroid Stim Hormone (TSH) 1.09 uIU/mL (0.358-3.74)
--- NOTE | 2021-03-04 11:38 | CASEMGMT ---
Addendum entered by Brittany Hendrix 03/04/21 15:24: 1500- Palliative Screen faxed to [facility], Dr Dixon aware and verbal consent to fax. DAVIDA Nugent Original Note: RN CM Assessment Introduced role of RN CM to patient. Patient is alert, oriented and able to participate in RN CM Assessment. Care providers, pharmacy, and demographics verified. Patient currently on Bipap and some of assessment difficult to understand and/or complete in whole at this time. Admit Dx: Acute Hypoxic Respiratory failure, HCAP, Recent Lung CA Dx Re-Admit: No Barriers/Issues:. Recent Lung CA Dx. Patient with h/o COPD noted in chart but patient denies h/o COPD. Recently placed on Home O2 on 02/12/21. Palliative Screen done by this typewriter assembly and parts inspector in ER and per patient request would like Palliative Referral to [facility]. Has had 6 ED visits over the past 6 months for nose bleeds. PCP: Manuel Mortensen Specialists: Jaylon Atkins Preferred Pharmacy: [facility] Insurance: [employer] [facility] Rx Benefit: Yes LNOK: Nelson Degroot LW/HPOA: None, AD information provided and patient aware to notify staff if wishing to complete on this admission. Aware can return as an outpatient to complete should she want to at a later time. Living Arrangements: Lives with her and her sister in a H, no steps to enter home. ADL?s: Independent with ambulation and ADL/IADLs. Transportation: Both patient and her drive. will transport upon DC. DME: Home Os 4Lpm Cont w/ [facility] in [place]. No other DME addressed at this time as this typewriter assembly and parts inspector having difficulty understanding patient through Bipap. HHC: None SNF: None Goal: Home and possible HH. in network list of HH and SNF with [facility] star ratings provided. Patient to look over list and will notify IP RNCM of preferences. DC PLAN: Home with possible HH and possible change for Home O2 order. Possible Palliative Care. DAVIDA Nugent
--- NOTE | 2021-03-04 11:44 | EX.PCM.CONCC ---
Assessment & Plan Assessment/Plan (1) Acute respiratory failure with hypoxia: PLAN: RECOMMENDATIONS: 1. Wean FiO2 for saturations greater than 90%. 2. Continue empiric broad-spectrum antimicrobials. 3. Obtain oncology consultation for definitive management. 4. Continue bronchodilators. 5. Consider thoracentesis if no improvement in oxygenation status. IMPRESSIONS: 1. Acute on chronic hypoxemic respiratory failure The patient presented to the hospital with worsening dyspnea and hypoxemia in the setting of a new diagnosis of small cell lung cancer. The patient has presumptive COPD along with a extensive tobacco abuse history. The etiology for her clinical decompensation is likely secondary to underlying untreated, progressive lung cancer leading to postobstructive pneumonia. Therefore, it is reasonable to continue empiric antimicrobials as ordered. If the patient's oxygenation status does not improve, can consider thoracentesis. However, I do suspect that the main issue at play here is the fact that she has progressive lung cancer that is causing significant extrinsic compression and subsequent airway collapse. For now, continue heated high flow oxygen and wean FiO2 for saturations greater than 90%. Continue bronchodilators. 2. Hyponatremia Likely secondary to SIADH. 3. Extensive tobacco abuse history I personally spent 3 minutes discussing the deleterious effects of continued tobacco use with the patient, including modalities which could be utilized to achieve a smoke-free lifestyle. Nicotine replacement therapy can be offered to the patient while admitted to the hospital. 4. History of coronary artery disease status post CABG/hypertension/hyperlipidemia/depression/anxiety Complicates care, management, recovery and prognosis. Continue home medications as indicated. This note was generated with [employer] dictation software. It may contain incorrect words, spelling, and punctuation that were not noted in checking the note before signing. HPI Consult Data Date of Consult: 03/05/21 HPI Narrative Reason for Consultation: Acute on chronic hypoxemic respiratory failure HPI Narrative: The patient is a 65-year-old female, with a history as outlined below, who presented to the emergency department on March 04 with progressive dyspnea and hypoxemia. The patient has an apparent history of COPD of unknown severity along with coronary artery disease. She also reported that she has been on supplemental oxygen at 4 L/min since the beginning of the month. She has an extensive smoking history. The patient is currently followed by Dr. Richi Ramos of pulmonary medicine at [place]. The patient underwent an EBUS procedure on February 21 which revealed extrinsic compression of the right mainstem along with total occlusion of the right upper lobe bronchus. The patient does have a right hilar lung mass, which was directly biopsied along with multiple lymph node stations. Right upper lobe endobronchial biopsy dated February 21 was positive for small cell carcinoma. Prior CTA chest from February 12 demonstrated no evidence for PE but did demonstrate narrowing of the right mainstem bronchus along with a large right hilar lung mass with encasement of the right upper pulmonary artery infiltrating the mediastinum and subcarinal region. A small right pleural effusion was also noted. On presentation to the emergency department, the patient was noted to be afebrile and hemodynamically stable. Initial laboratory evaluation revealed an elevated white blood cell count of 14,000. D-dimer was elevated at 1.83. Chemistry profile was notable for a sodium of 122 and chloride of 84. Rapid coronavirus antigen testing was negative. CTA chest showed no evidence for pulmonary embolism. The moderate sized pleural effusion was noted on the right along with associated consolidation and volume loss in the right lower lobe and right upper lobe. The patient was started on BiPAP therapy along with broad-spectrum antimicrobials. She was subsequently admitted to the medical intensive care unit for further management. [facility] Medical History Abnormal stress test Anxiety state Atherosclerotic heart disease of [place] coronary artery without angina pectoris COPD (chronic obstructive pulmonary disease) Diverticulosis Encephalitis Essential hypertension History of DVT (deep vein thrombosis) History of uterine cancer Morbid obesity Old myocardial infarction Pure hypercholesterolemia Tobacco use disorder Type 2 diabetes mellitus Home Medications sertraline 100 mg tablet 100 mg PO DAILY 07/02/17 [History Last Taken 08/17/18] isosorbide mononitrate 30 mg tablet,extended release 24 hr 30 mg PO QAM #30 tab 07/08/17 [Rx Last Taken 08/18/18] bupropion HCl 300 mg PO DAILY 07/20/18 [History Last Taken 08/18/18] clopidogrel 75 mg PO DAILY 08/18/18 [History Last Taken 08/18/18] simvastatin 20 mg PO QHS 08/18/18 [History Last Taken 08/17/18] hydrochlorothiazide 25 mg PO DAILY 10/31/19 [History Last Taken Unknown] lorazepam 0.5 mg PO BID PRN PRN 10/31/19 [History Last Taken Unknown] losartan 100 mg PO DAILY 10/31/19 [History Last Taken Unknown] carvedilol 6.25 mg PO BID 12/08/20 [History Last Taken Unknown] Allergy/AdvReac Type Severity Reaction Status Date / Time cephalexin [From Keflex] Allergy Severe Rash Verified 03/04/21 06:51 levofloxacin [From Levaquin] Allergy Severe Rash Verified 03/04/21 06:51 niacin Allergy Severe Rash Verified 03/04/21 06:51 Penicillins Allergy Severe Anaphylaxis Verified 03/04/21 06:51 Sulfa (Sulfonamide Allergy Severe Rash Verified 03/04/21 06:51 Antibiotics) citalopram [From Celexa] AdvReac Severe Rash Verified 03/04/21 06:51 Estrogens AdvReac Severe blood clots Verified 03/04/21 06:51 rosuvastatin [From Crestor] AdvReac Severe myalgias Verified 03/04/21 06:51 oral contraceptives AdvReac Severe Unknown Uncoded 03/04/21 06:51 Family History Father CAD (coronary artery disease) Cancer Prostate and Bladder Mother CVA (cerebral vascular accident) Hypertension Surgical History Aortocoronary bypass status (~10/31/11) History of tonsillectomy History of total hysterectomy History of total mastectomy of left breast (~08/2018) History of tubal ligation Social History (Updated 03/04/21 @ 14:[address] Elvia Dixon MD) household members: spouse Smoking Status: Current every day smoker tobacco type: cigarettes quit status: considering quitting alcohol intake: never substance use type: does not use ROS Constitutional Constitutional: Reports malaise; Denies chills or fatigue Eyes Eyes: Denies blurry vision or change in vision ENT HEENT: Denies dizziness, epistaxis, headache(s), nasal congestion or nasal discharge Cardiovascular Cardiovascular: Reports dyspnea; Denies chest pain Respiratory/Chest Respiratory/Chest: Reports cough, dyspnea and wheezing Gastrointestinal Gastrointestinal: Denies abdominal pain, diarrhea, nausea or vomiting Genitourinary Genitourinary: Denies difficulty urinating Musculoskeletal Musculoskeletal: Denies arthralgias, back pain or joint pain Integumentary Integumentary: Denies lesions, rash or skin ulcer Neurologic Neurologic: Denies abnormal gait or abnormal speech Psychiatric Psychiatric: Denies anxiety or depression Endocrine Endocrinology: Denies fatigue Hematologic/Lymphatic Hematologic/Lymphatic: Denies easy bleeding or easy bruising Physical Exam Const alert Constitutional Narrative: Currently sitting in bedside recliner. Smells of cigarettes. Currently tolerating Airvo heated high flow. General Appearance: cooperative Nutritional Appearance: morbidly obese HEENT normocephalic and head/scalp atraumatic Eyes PERRL, EOMs intact bilaterally and conjunctivae normal Neck supple General: trachea midline Chest inspection of chest normal Resp Auscultation: wheezes and diminished lung sounds Cardio regular rate and regular rhythm GI normal to inspection, nondistended, normoactive bowel sounds Extremity no clubbing, cyanosis or edema Skin no rashes or lesions noted Neuro CN's II-XII intact bilaterally, moves all extremities and no focal motor deficits Psych cooperative and affect normal Lab / Micro Data Result Diagrams: 03/05/21 03:00 03/05/21 03:00 Labs: Laboratory Results - last 24 hr 03/04/21 07:00: WBC 13.6 H, RBC 6.12 H, Hgb 16.0 H, Hct 48.2 H, MCV 78.8 L, MCH 26.1 L, MCHC 33.2, RDW Std Deviation 42.1, RDW Coeff of Melina 15.0 H, Plt Count 345, MPV 10.4, Immature Gran % (Auto) 0.700, Neut % (Auto) 82.6 H, Lymph % (Auto) 5.5 L, [place] % (Auto) 9.5, Eos % (Auto) 1.0, Baso % (Auto) 0.7, Absolute Neuts (auto) 11.3 H, Absolute Lymphs (auto) 0.75 L, Nucleated RBC % 0 03/04/21 07:00: D-Dimer Quant (PE/DVT) Cancelled 03/04/21 07:00: Sodium 122 L, Potassium 3.7, Chloride 84 L, Carbon Dioxide 30.0, Anion Gap 8, BUN 14, Creatinine 0.86, Estim Creat Clear Calc 53.95, Est GFR (MDRD) Af Amer 85, Est GFR (MDRD) Non-Af 70, BUN/Creatinine Ratio 16.2, Glucose 106, Calcium 10.1, Troponin I High Sens 44 03/04/21 07:00: Lactic Acid 0.8 03/04/21 07:00: B-Natriuretic Peptide 100.8 H 03/04/21 07:00: Phosphorus 2.5, Magnesium 2.2, TSH 1.09, Free T4 1.35 03/04/21 07:45: D-Dimer Quant (PE/DVT) 1.83 H* Micro: Microbiology 03/04/21 07:20 Nasal Secretion SARS-CoV-2 Antigen (Rapid) - Final Radiology Impression Chest X-Ray 03/04/21 07:35 IMPRESSION: 1. Dense opacification of the right chest with overlying devices. Differential considerations include a mass versus dense airspace disease. 2. Heterogeneous left-sided airspace disease and what may represent some pulmonary congestion. Electronically Signed: Angela Childers MD at 7:54 EST , Service support , Chest CTA 03/04/21 08:23 IMPRESSION: No evidence of pulmonary embolism. Moderate size right pleural effusion with consolidation and volume loss in the right upper and right lower lobes. Right hilar and mediastinal lymphadenopathy. Pulmonary infiltrates in the left hemithorax. Pneumonitis associated with Covid should be ruled out. Electronically Signed: Raza Keita MD at 9:14 EST , Service support , Charges/Coding Visit Charges Inpatient E&M: 22954 Init Hosp L3 Behavior Interventions Behavior Intervention: 08984 Smoking Cessation 3-10 min
[2021-03-04 11:53] LABS: Urine Sodium 12 mmol/L (Not Establ.)
[2021-03-04 11:57] LABS: Osmolality, Urine 390 mOsm/KG
[2021-03-04] MEDS: 0.9% Normal Saline 1,000 ML 100 ML IV ×2 (12:12→21:02)
[2021-03-04] MEDS: MethylPREDNISolone 125 MG/2 ML Vial IV (12:52)
--- NOTE | 2021-03-04 13:01 | PCM.RX.CS ---
Consult Pharmacy has been consulted to manage selected antiobiotic: Vancomycin Type of Consult: New start Suspected Infection: Other Labs: Sodium 122 mmol/L (136-145) L 03/04/21 07:00 Potassium 3.7 mmol/L (3.5-5.1) 03/04/21 07:00 Chloride 84 mmol/L (98-107) L 03/04/21 07:00 Carbon Dioxide 30.0 mmol/L (21.0-32.0) 03/04/21 07:00 Anion Gap 8 (5-15) 03/04/21 07:00 BUN 14 mg/dL (7-18) 03/04/21 07:00 Creatinine 0.86 mg/dL (0.55-1.02) 03/04/21 07:00 Est GFR (MDRD) Af Amer 85 mL/min (>60) 03/04/21 07:00 Est GFR (MDRD) Non-Af 70 mL/min (>60) 03/04/21 07:00 BUN/Creatinine Ratio 16.2 RATIO (10-20) 03/04/21 07:00 Glucose 106 mg/dL (74-106) 03/04/21 07:00 Microbiology: Microbiology 03/04/21 11:30 Urine Catheter - Catheter Legionella Antigen - Final 03/04/21 11:30 Urine Catheter - Catheter Streptococcus pneumoniae Antigen (M - Final 03/04/21 07:20 Nasal Secretion SARS-CoV-2 Antigen (Rapid) - Final Weight used for dosin.6 kg Estimated Creatinine Clearance: 53.95 Goal Trough: 15-20 mcg/mL Pharmacy Plan for Drug Dosing: VANCOMYCIN 2000 MG IV X 1 DOSE THEN VANCOMYCIN 1250 MG IV Q12H Pharmacy Service will continue to monitor and adjust dosing as required. Follow-Up Labs: Trough Vancomycin Labs to be done on [date and time ordered]: VANCOMYCIN TROUGH 03/05/21 AT 2230
--- NOTE | 2021-03-04 14:50 | RAO.CON ---
Intake Vital Signs 03/04/21 06:44 03/04/21 06:52 03/04/21 07:00 03/04/21 07:22 03/04/21 08:19 03/04/21 09:54 03/04/21 09:58 03/04/21 10:59 03/04/21 11:33 03/04/21 11:42 03/04/21 11:45 03/04/21 12:00 03/04/21 12:19 03/04/21 12:30 03/04/21 12:31 03/04/21 12:45 03/04/21 13:00 03/04/21 14:00 03/04/21 14:38 03/04/21 14:38 03/04/21 14:38 Height 5 ft 3 in Weight: 281 lb 4.957 oz BMI 49.8 BP 153/84 H 182/91 H 113/96 H 136/70 H 109/82 H 139/83 H 155/135 H 139/72 H 138/80 H 150/71 H Position Sitting Sitting Sitting Sitting Sitting Sitting Sitting Sitting Respiration 23 H 27 H 23 H 24 H 20 H 28 H 24 H 23 H 22 H 21 H 24 H 25 H 24 H 28 H 28 H Pulse 92 81 88 88 92 92 92 89 93 90 92 89 92 86 92 92 Temp 97.7 F L 98.5 F 97.0 F L 97.5 F L Pulse Oximetry (%) 91 94 93 92 92 94 92 92 97 95 95 97 94 93 93 93 Oxygen Flow Rate (L/min) 15 15 50 50 50 50 50 50 50 60 Intake Visit Reasons: ACUTE HYPOXIC RESPIRATORY FAILURE, HCAP Chief Complaint: HCAP Allergies cephalexin [From Keflex] Allergy (Severe, Verified 03/04/21 06:51) Rash levofloxacin [From Levaquin] Allergy (Severe, Verified 03/04/21 06:51) Rash niacin Allergy (Severe, Verified 03/04/21 06:51) Rash Penicillins Allergy (Severe, Verified 03/04/21 06:51) Anaphylaxis Sulfa (Sulfonamide Antibiotics) Allergy (Severe, Verified 03/04/21 06:51) Rash citalopram [From Celexa] Adverse Reaction (Severe, Verified 03/04/21 06:51) Rash Estrogens Adverse Reaction (Severe, Verified 03/04/21 06:51) blood clots rosuvastatin [From Crestor] Adverse Reaction (Severe, Verified 03/04/21 06:51) myalgias oral contraceptives Adverse Reaction (Severe, Uncoded 03/04/21 06:51) Unknown Medications sertraline 100 mg tablet 100 mg PO DAILY 07/02/17 [History Confirmed 03/04/21] isosorbide mononitrate 30 mg tablet,extended release 24 hr 30 mg PO QAM #30 tab 07/08/17 [Rx Confirmed 03/04/21] bupropion HCl 300 mg PO DAILY 07/20/18 [History Confirmed 03/04/21] clopidogrel 75 mg PO DAILY 08/18/18 [History Confirmed 03/04/21] simvastatin 20 mg PO QHS 08/18/18 [History Confirmed 03/04/21] hydrochlorothiazide 25 mg PO DAILY 10/31/19 [History Confirmed 03/04/21] lorazepam 0.5 mg PO BID PRN PRN 10/31/19 [History Confirmed 03/04/21] losartan 100 mg PO DAILY 10/31/19 [History Confirmed 03/04/21] carvedilol 6.25 mg PO BID 12/08/20 [History Confirmed 03/04/21] Home Medications Acetaminophen (Acetaminophen 325 Mg Tablet) 650 mg PO Q4H PRN PRN PRN Reason: Fever, pain 1-11/18 Albuterol Sulfate (Albuterol 2.5 Mg/3 Ml Vial.Neb.) 2.5 mg INHALATION Q2H PRN PRN PRN Reason: Dyspnea, wheezing Albuterol/Ipratropium (Ipratropium/Albuterol Sulfate 3 Ml Ampul.Neb) 3 ml INHALATION Q4HWA.RT ABNER Last Admin: 03/04/21 14:37 Dose: 3 ml Documented by: Atorvastatin Calcium (Atorvastatin Calcium 10 Mg Tablet) 10 mg PO QHS ABNER Bupropion HCl (Bupropion (Xl) 300 Mg Tablet.Xl) 300 mg PO DAILY [facility] Carvedilol (Carvedilol 6.25 Mg Tablet) 6.25 mg PO BID [facility] Clopidogrel Bisulfate (Clopidogrel Bisulfate 75 Mg Tablet) 75 mg PO DAILY [facility] Enoxaparin Sodium (Enoxaparin 40 Mg/0.4 Ml Syringe) 40 mg SC BID [facility] Guaifenesin (Guaifenesin 1,200 Mg Tablet) 1,200 mg PO BID [facility] Hydralazine HCl (Hydralazine 20 Mg/Ml Vial) 10 mg IV Q4H PRN PRN PRN Reason: SBP > 160 Sodium Chloride () 1,000 mls @ 100 mls/hr IV .Q10H [facility] Last Admin: 03/04/21 12:12 Dose: 100 mls/hr Documented by: Vancomycin IV-PHARMACY TO DOSE (1 each/ Sodium Chloride) 500 mls @ 250 mls/hr IV PRN PRN; Protocol PRN Reason: Rx to Dose Meropenem 1 gm/ Sodium (Chloride) 120 mls @ 33 mls/hr IV Q8 ABNER Sodium Chloride () 250 mls @ 15 mls/hr IV .[id number] PRN PRN Reason: Saline Flush Sodium Chloride () 250 mls @ 15 mls/hr IV .[id number] PRN PRN Reason: Additional IVPB Infusion Vancomycin HCl 1,250 mg/ (Sodium Chloride) 275 mls @ 167 mls/hr IV Q12H [facility] Iopamidol (Contrast Allergy Safety Check) 0 ml IV X1 [facility] Last Admin: 03/04/21 11:48 Dose: Not Given Documented by: Isosorbide Mononitrate (Isosorbide Mononitrate 30 Mg Tablet) 30 mg PO QAM [facility] Losartan Potassium (Losartan Potassium 100 Mg Tablet) 100 mg PO DAILY [facility] Methylprednisolone (Methylprednisolone 40 Mg/Ml Vial) 40 mg IV Q8 [facility] Ondansetron HCl (Ondansetron 4 Mg/2 Ml Vial) 4 mg IV Q8H PRN PRN PRN Reason: NAUSEA/VOMITING Prochlorperazine Edisylate (Prochlorperazine 10 Mg/2 Ml Vial) 5 mg IV Q4H PRN PRN PRN Reason: Breakthrough Nausea/Vomiting Sertraline HCl (Sertraline 100 Mg Tablet) 100 mg PO DAILY [facility] Sodium Chloride (0.9% Saline Lock 10 Ml Syringe) 10 - 40 ml IV UD PRN PRN Reason: SALINE FLUSH Discontinued Medications Albuterol Sulfate (Albuterol 2.5 Mg/3 Ml Vial.Neb.) 2.5 mg INHALATION X1 ONE Stop: 03/04/21 07:05 Last Admin: 03/04/21 07:21 Dose: 2.5 mg Documented by: Albuterol/Ipratropium (Ipratropium/Albuterol Sulfate 3 Ml Ampul.Neb) 3 ml INHALATION X1 ONE Stop: 03/04/21 07:05 Last Admin: 03/04/21 07:22 Dose: 3 ml Documented by: Meropenem 1 gm/ Sodium (Chloride) 120 mls @ 240 mls/hr IV X1 ONE Stop: 03/04/21 10:48 Last Infusion: 03/04/21 11:35 Dose: Infused Documented by: Vancomycin HCl 2,000 mg/ (Sodium Chloride) 540 mls @ 250 mls/hr IV X1 ONE Stop: 03/04/21 13:09 Last Infusion: 03/04/21 14:39 Dose: Infused Documented by: Methylprednisolone (Methylprednisolone 125 Mg/2 Ml Vial) 125 mg IV X1 ONE Stop: 03/04/21 12:01 Last Admin: 03/04/21 12:52 Dose: 125 mg Documented by: [facility] Medical History Abnormal stress test Anxiety state Atherosclerotic heart disease of [place] coronary artery without angina pectoris COPD (chronic obstructive pulmonary disease) Diverticulosis Encephalitis Essential hypertension History of DVT (deep vein thrombosis) History of uterine cancer Morbid obesity Old myocardial infarction Pure hypercholesterolemia Tobacco use disorder Type 2 diabetes mellitus Home Medications sertraline 100 mg tablet 100 mg PO DAILY 07/02/17 [History Last Taken 08/17/18] isosorbide mononitrate 30 mg tablet,extended release 24 hr 30 mg PO QAM #30 tab 07/08/17 [Rx Last Taken 08/18/18] bupropion HCl 300 mg PO DAILY 07/20/18 [History Last Taken 08/18/18] clopidogrel 75 mg PO DAILY 08/18/18 [History Last Taken 08/18/18] simvastatin 20 mg PO QHS 08/18/18 [History Last Taken 08/17/18] hydrochlorothiazide 25 mg PO DAILY 10/31/19 [History Last Taken Unknown] lorazepam 0.5 mg PO BID PRN PRN 10/31/19 [History Last Taken Unknown] losartan 100 mg PO DAILY 10/31/19 [History Last Taken Unknown] carvedilol 6.25 mg PO BID 12/08/20 [History Last Taken Unknown] Allergy/AdvReac Type Severity Reaction Status Date / Time cephalexin [From Keflex] Allergy Severe Rash Verified 03/04/21 06:51 levofloxacin [From Levaquin] Allergy Severe Rash Verified 03/04/21 06:51 niacin Allergy Severe Rash Verified 03/04/21 06:51 Penicillins Allergy Severe Anaphylaxis Verified 03/04/21 06:51 Sulfa (Sulfonamide Allergy Severe Rash Verified 03/04/21 06:51 Antibiotics) citalopram [From Celexa] AdvReac Severe Rash Verified 03/04/21 06:51 Estrogens AdvReac Severe blood clots Verified 03/04/21 06:51 rosuvastatin [From Crestor] AdvReac Severe myalgias Verified 03/04/21 06:51 oral contraceptives AdvReac Severe Unknown Uncoded 03/04/21 06:51 Family History Father CAD (coronary artery disease) Cancer Prostate and Bladder Mother CVA (cerebral vascular accident) Hypertension Surgical History Aortocoronary bypass status (~10/31/11) History of tonsillectomy History of total hysterectomy History of total mastectomy of left breast (~08/2018) History of tubal ligation Social History household members: spouse Smoking Status: Current every day smoker tobacco type: cigarettes quit status: considering quitting alcohol intake: never substance use type: does not use Referring Provider: Santino Banda MD Diagnosis: Keturah Degroot is a 65 year-old female diagnosed with small cell lung cancer status post bronchoscopy with EBUS and biopsy of the right hilar mass and level 7 (02/21/2021), evaluation in the emergency room with completion of CTA chest (03/04/2021). History of Present Illness: 02/21/2021: Bronchoscopy with EBUS was performed at [facility]. Biopsy of right hilum and lymph node station level 7 were consistent with small cell carcinoma. 03/04/2021: Patient was seen in the emergency room after having low oxygen saturation in the 70% range at home. She has been on oxygen since 02/12/2021. Shortness of breath have been increasing over the last month. She is taking 4 L of oxygen. Patient was placed on BiPAP. She was admitted to the ICU. BiPAP was removed in the ICU and is on heated high flow oxygen and stable. 03/04/2021: CTA chest was performed. This demonstrated no evidence of PE. There is a moderate-sized right pleural effusion. There is consolidation and volume loss in the right lower lobe as well as in the right upper lobe. Patchy alveolar infiltrates in the left lung worse in the left upper lobe. There is a 1.1 cm hypodensity in the anterior right lobe of the liver. Radiation Treatment History: No prior history of radiation therapy. No pacemaker. No diagnosis of radiosensitizing comorbidity. Interval History: Patient was seen as an inpatient consultation in the ICU. She was seen in her hospital room sitting up comfortably in her chair. She reports having shortness of breath which began in November 2020 after she had Covid. She reports this being stable and suspected it was related to Covid and then in late January when she had her initial Covid vaccine she reports that this worsened causing her to present to the hospital at [place]. Reportedly they completed CTA chest which demonstrated a central mass and right lung consolidation/atelectasis. Bronchoscopy with EBUS was completed and biopsies consistent with small cell carcinoma. Outside records are pending but some information was available. She is currently on 60% heated high flow oxygen and reports her breathing is much improved today as compared to yesterday. She is also being treated with steroids and antibiotics for suspected COPD exacerbation and potential postobstructive pneumonia. She denies odynophagia, dysphagia, unexpected weight loss, headaches, vision changes, bone pain, focal weakness/numbness. She does have occasional cough but this is mostly dry she denies having hemoptysis. She denies chest pain. She reports a reduced appetite. She smoked 1 pack/day for about 40 years and quit last week. She reports being able to complete all ADLs without much difficulty at home but otherwise is not very active. She does continue to work with the [employer] She denies having other problems or concerns at this time. Review of Systems: A 12-point review of systems was completed and was negative except for what is noted in the HPI/Interval History and by the nurse. Physical Exam: Weight: 281 lbs ECO KAR[place]FSKY SCORE: 60% CONSTITUTIONAL: Well-developed, obese, and in no apparent distress. NECK: Supple, no thyromegaly, and non-tender. Trachea midline. No cervical or supraclavicular adenopathy noted. CARDIAC: Regular rate and rhythm. Normal S1, S2. No murmurs, rubs, or gallops. PULMONARY/CHEST: Right lung gates demonstrate reduced air movement throughout with rhonchi appreciated. Left lung gates open with good air mobility, mild rhonchi appreciated. No crackles. Does not appear to have any increased work of breathing. Has 60% heated high flow oxygen in place. ABDOMINAL: Abdomen soft, non-tender, non-distended. No hepatomegaly. Normoactive bowel sounds in all four quadrants. No guarding, rebound. BACK: Straight and aligned. No CVA tenderness. Axial skeleton non-tender to percussion. EXTREMITIES: Full range of motion in all four extremities. No evidence of edema. NEUROLOGICAL EXAM: Alert and oriented x 3. Answers questions and follows commands appropriately. Cranial nerves II through XII are grossly intact. No focal neurological deficit. Speech is fluent. Muscle strength is 5/5 in all muscle groups. Gait and posture without abnormality. PSYCHIATRIC: Appropriate mood and affect for the clinical situation. Imaging: As per HPI Laboratory Data: 03/04/2021: WBC 13.6, hemoglobin 16, ANC 11.3, D-dimer 1.83, BNP 100.8 Assessment & Plan Assessment/Plan (1) Small cell lung cancer, overlapping sites of right lung: PLAN: Assessment: Keturah Degroot is a 65 year-old female diagnosed with small cell lung cancer status post bronchoscopy with EBUS and biopsy of the right hilar mass and level 7 (02/21/2021), evaluation in the emergency room with completion of CTA chest (03/04/2021). Plan: Patient was seen for inpatient consultation due to having increased respiratory difficulty and recent diagnosis of small cell lung cancer status post bronchoscopy and EBUS on 02/21/2021. Outside records are pending but some records available, pathology is consistent with small cell lung cancer. Imaging studies include CTA of the chest completed at [facility] earlier this month and also CTA chest 03/04/2021 which demonstrated a moderate right-sided pleural effusion with consolidation and volume loss of much of the right lower and right upper lobe. There appears to be obstruction obstruction of the distal right mainstem bronchus and airways distal to this as well as a bulky likely disease in the mediastinum surrounding the trachea. Symptoms related to disease would include breathing difficulties, she does not have any swallowing difficulties. I reviewed the natural history and general treatment strategies for small cell lung cancer. I discussed the importance of staging as limited stage small cell lung cancer and extensive stage small cell lung cancer follow different treatment paradigms and have different treatment goals. I briefly reviewed options of treatment for limited stage small cell lung cancer which includes chemoradiation for definitive curative intent and contrasted this with treatment for extensive stage small cell lung cancer which generally includes chemoimmunotherapy and the use of palliative radiation therapy as needed for symptom improvement and improvement of quality of life. She is currently being treated with antibiotics, steroids, and breathing treatments to try to improve breathing function. I reviewed options of urgent radiation therapy if her breathing is not able to be improved and become stable enough for discharge home for outpatient work-up to complete staging. The CT simulator is currently down until Thursday and this would be the earliest time point where we could complete a CT simulation for treatment planning but can likely initiate treatment Thursday afternoon, given her current stability believe this is reasonable. Discussed with pulmonology and given that much of the obstruction is from external compression it is unlikely that any pulmonary intervention would be useful in their opinion. I reviewed the logistics of radiation therapy including CT simulation, treatment planning, and daily fractionated treatment delivery. I reviewed potential goals of therapy which are to reduce the central chest disease burden and open up the airway to improve breathing function. The risk, benefits, and alternatives to radiation therapy were reviewed in detail and all questions were addressed. The potential acute and late toxicities were discussed in detail and include but are not limited to acute: fatigue, skin erythema, esophagitis, nausea/vomiting, pneumonitis, pericarditis, and late: esophageal stricture, pneumonitis, lung fibrosis and worsening shortness of breath, increased risk for cardiac event (eg myocardial infarction), brachial plexus or spinal cord nerve damage, chronic chest wall pain, and a rare risk of secondary cancer formation. We will plan to check in on her clinical status tomorrow to further determine treatment course and will also plan for brain MRI and PET scan for staging which likely will not be completed until she is discharged. Thank you for allowing me to participate in the management and care of your patient. If I may answer any questions in the interim, please do not hesitate to contact me at any time. Arthur Lilyl DO, MS Process Stripper, Department of Radiation Oncology [facility] Coding Level of Care Code Off vis,new,level 5 Diagnoses Small cell lung cancer, overlapping sites of right lung C34.81
[2021-03-04 15:04] LABS: M R Staph aureus DNA By PCR Negative (Negative); Probe Check PASS; Specimen Processing Control PASS
[2021-03-04 16:00] LABS: Osmolality, Serum 266 mOsm/KG (280-301)
[2021-03-04] MEDS: Acetaminophen 325 MG Tablet 650 MG PO ×2 (18:00→22:02)
[2021-03-04] MEDS: Enoxaparin 40 MG/0.4 ML Syringe SC (21:02)
[2021-03-04] MEDS: Atorvastatin Calcium 10 MG Tablet PO (21:02)
[2021-03-04] MEDS: guaiFENesin 1,200 MG Tablet 1200 MG PO (21:02)
[2021-03-04] MEDS: Carvedilol 6.25 MG Tablet PO (21:02)
[2021-03-05] VITALS (37 sets, daily range): BP systolic 83–165; BP diastolic 40–101; PULSE 66–88; RESP 16–27; TEMP 36.3–36.8; O2SAT 83–97
[2021-03-05 03:20] LABS: Absolute Lymphocyte Count 0.58 X10^3/uL (0.83-4.51); Absolute Neutrophil Count 11.1 X10^3/uL (2.0-7.7); Basophil# 0.04 X10^3/uL; Basophil% 0.3 % (0-1); Hematocrit 47.3 % (37-47); Lymphocyte # 0.58 X10^3/ul (0.83-4.51); Lymphocyte % 4.7 % (19-41); Mean Corp Hgb Conc 31.7 g/dL (32-36); Mean Corpuscular Hgb 25.2 pg (27.0-32.0); Mean Corpuscular Volume 79.5 fL (81-99); Mean Platelet Vol. 10.4 fl (6.2-12.0); Monocyte# 0.49 X10^3/uL; NRBC Flagged by Analyzer 0 % (0-5); Neutrophil # 11.12 X10^3/uL (2.7-7.7); Neutrophil % 90.4 % (47-70); POSITIVE DIFFERENTIAL YES; POSITIVE MORPHOLOGY YES; Platelet Count 308 K/mm3 (150-450); RBC Distribution Width CV 14.6 % (11.6-14.6); Red Blood Count 5.95 M/mm3 (4.2-5.4); White Blood Count 12.3 K/mm3 (4.4-11.0)
[2021-03-05 03:26] LABS: Differential Indicated SCAN CRITERIA MET
[2021-03-05 03:37] LABS: ALB/GLOB Ratio 0.5 RATIO (0.9-2.4); AST(SGOT) 19 U/L (15-37); Alanine Aminotransfer ALT/SGPT 16 U/L (13-56); Albumin, Serum 2.4 g/dL (3.2-5.0); Alkaline Phosphatase 119 U/L (45-117); Anion Gap 7 (5-15); BUN 13 mg/dL (7-18); BUN/Creat Ratio 17.1 RATIO (10-20); Calcium,Total 9.9 mg/dL (8.5-10.1); Chloride 87 mmol/L (98-107); Creatinine, Serum 0.76 mg/dL (0.55-1.02); EST Glomerular Filtration Rate 81 mL/min (>60); Est Glom Filt Rate - Afr Amer 98 mL/min (>60); Estimated Creatinine Clearance 58.37 ml/min; Globulin 5.1 g/dL (2.2-4.2); Glucose 172 mg/dL (74-106); Protein, Total 7.5 g/dL (6.4-8.2); Sodium Level 124 mmol/L (136-145)
[2021-03-05] MEDS: 0.9% Normal Saline 1,000 ML 100 ML IV (05:02)
--- NOTE | 2021-03-05 06:15 | PCM.PN.INT ---
Assessment & Plan Assessment/Plan (1) Acute respiratory failure with hypoxia: PLAN: RECOMMENDATIONS: 1. Wean FiO2 for saturations greater than 90%. 2. Continue empiric broad-spectrum antimicrobials. 3. Proceed with radiation simulation tomorrow. 4. Continue bronchodilators. 5. Consider thoracentesis if no improvement in oxygenation status. 6. Stop continuous IV fluids. IMPRESSIONS: 1. Acute on chronic hypoxemic respiratory failure The patient presented to the hospital with worsening dyspnea and hypoxemia in the setting of a new diagnosis of small cell lung cancer. The patient has presumptive COPD along with a extensive tobacco abuse history. The etiology for her clinical decompensation is likely secondary to underlying untreated, progressive lung cancer leading to postobstructive pneumonia. Therefore, it is reasonable to continue empiric antimicrobials as ordered. If the patient's oxygenation status does not improve, can consider thoracentesis. However, I do suspect that the main issue at play here is the fact that she has progressive lung cancer that is causing significant extrinsic compression and subsequent airway collapse. For now, continue heated high flow oxygen and wean FiO2 for saturations greater than 90%. Continue bronchodilators. The patient has already been evaluated by radiation oncology, with tentative plans to proceed with simulation tomorrow in hopes that she can be started on radiation treatments to help alleviate some of the airway compression. Ultimately, the patient needs to complete her staging work-up which would include a PET scan and MRI brain. 2. Extensive tobacco abuse history Smoking cessation was discussed with the patient. Nicotine replacement therapy can be offered while admitted to the hospital. 3. History of coronary artery disease status post CABG/hypertension/hyperlipidemia/depression/anxiety Complicates care, management, recovery and prognosis. Continue home medications as indicated. This note was generated with [employer] dictation software. It may contain incorrect words, spelling, and punctuation that were not noted in checking the note before signing. Subjective Subjective The patient was seen and examined at the bedside this morning. Events from the last 24 hours have been reviewed. The patient is currently afebrile, hemodynamically stable and maintaining appropriate oxygen saturations on Airvo heated high flow with an FiO2 requirement of 93% and flow rate of 50 L/min. No overnight events were noted by the nursing staff. The patient is currently documented to be overall net +2.4 L for the hospitalization. She remains on broad-spectrum antimicrobials. Sodium and chloride were noted to be 124 and 87, respectively. I spoke personally with the patient and her friend this morning at the bedside regarding her diagnosis, prognosis and overall goals of care. I also spoke to radiation oncology, who indicated to me that they are willing to proceed with a simulation tomorrow in hopes of starting her on radiation treatment the following day. Objective Data Objective Data The patient's most recent lab work, culture data and imaging studies have all been personally reviewed. Rapid coronavirus antigen testing was negative. Blood cultures are pending. Strep and urine Legionella antigens were negative. Sputum culture is pending. Vital Signs: Vital Signs Temp Pulse Resp BP Pulse Ox 97.4 F L 77 23 H 165/71 H 95 03/05/21 04:00 03/05/21 06:00 03/05/21 06:00 03/05/21 06:00 03/05/21 06:00 Oxygen Flow Rate (L/min) 50 Oxygen Delivery Method Airvo Weight: 125.1 kg Body Mass Index (BMI) 48.9 Intake & Output: Intake and Output for Last 24 Hours 03/03/21 03/04/21 03/05/21 23:59 23:59 23:59 Intake Total 1663.33 / 1903.33 1555 / 1555 Output Total 450 / 450 300 / 300 Balance 1213.33 / 1453.33 1255 / 1255 Lab / Micro Data Attestation: I reviewed the patient's lab results. Result Diagrams: 03/05/21 03:00 03/05/21 03:00 Labs: Laboratory Results - last 24 hr 03/04/21 07:00: WBC 13.6 H, RBC 6.12 H, Hgb 16.0 H, Hct 48.2 H, MCV 78.8 L, MCH 26.1 L, MCHC 33.2, RDW Std Deviation 42.1, RDW Coeff of Melina 15.0 H, Plt Count 345, MPV 10.4, Immature Gran % (Auto) 0.700, Neut % (Auto) 82.6 H, Lymph % (Auto) 5.5 L, Travis % (Auto) 9.5, Eos % (Auto) 1.0, Baso % (Auto) 0.7, Absolute Neuts (auto) 11.3 H, Absolute Lymphs (auto) 0.75 L, Nucleated RBC % 0 03/04/21 07:00: D-Dimer Quant (PE/DVT) Cancelled 03/04/21 07:00: Sodium 122 L, Potassium 3.7, Chloride 84 L, Carbon Dioxide 30.0, Anion Gap 8, BUN 14, Creatinine 0.86, Estim Creat Clear Calc 53.95, Est GFR (MDRD) Af Amer 85, Est GFR (MDRD) Non-Af 70, BUN/Creatinine Ratio 16.2, Glucose 106, Calcium 10.1, Troponin I High Sens 44 03/04/21 07:00: Lactic Acid 0.8 03/04/21 07:00: B-Natriuretic Peptide 100.8 H 03/04/21 07:00: Phosphorus 2.5, Magnesium 2.2, TSH 1.09, Free T4 1.35 03/04/21 07:45: D-Dimer Quant (PE/DVT) 1.83 H* 03/04/21 11:30: Urine Osmolality 390, Ur Random Sodium 12, Urine Creatinine 69.30 03/04/21 11:50: MRSA (PCR) Negative 03/04/21 15:05: Serum Osmolality 266 L 03/04/21 15:05: Procalcitonin 0.40 H 03/05/21 03:00: WBC 12.3 H, RBC 5.95 H, Hgb 15.0, Hct 47.3 H, MCV 79.5 L, MCH 25.2 L, MCHC 31.7 L, RDW Std Deviation 42.0, RDW Coeff of Melina 14.6, Plt Count 308, MPV 10.4, Immature Gran % (Auto) 0.600, Neut % (Auto) 90.4 H, Lymph % (Auto) 4.7 L, Travis % (Auto) 4.0, Eos % (Auto) 0.0, Baso % (Auto) 0.3, Absolute Neuts (auto) 11.1 H, Absolute Lymphs (auto) 0.58 L, Nucleated RBC % 0 03/05/21 03:00: Sodium 124 L, Potassium 4.0, Chloride 87 L, Carbon Dioxide 30.0, Anion Gap 7, BUN 13, Creatinine 0.76, Estim Creat Clear Calc 58.37, Est GFR (MDRD) Af Amer 98, Est GFR (MDRD) Non-Af 81, BUN/Creatinine Ratio 17.1, Glucose 172 H, Calcium 9.9, Total Bilirubin 0.50, AST 19, ALT 16, Alkaline Phosphatase 119 H, Total Protein 7.5, Albumin 2.4 L, Globulin 5.1 H, Albumin/Globulin Ratio 0.5 L 03/05/21 03:00: Cortisol 18.50 Micro: Microbiology 03/04/21 11:30 Urine Catheter - Catheter Legionella Antigen - Final 03/04/21 11:30 Urine Catheter - Catheter Streptococcus pneumoniae Antigen (M - Final 03/04/21 07:20 Nasal Secretion SARS-CoV-2 Antigen (Rapid) - Final Radiography Diagnostic Testing: Radiology Impression Chest X-Ray 03/04/21 07:35 IMPRESSION: 1. Dense opacification of the right chest with overlying devices. Differential considerations include a mass versus dense airspace disease. 2. Heterogeneous left-sided airspace disease and what may represent some pulmonary congestion. Electronically Signed: Angela Childers MD at 7:54 EST , Service support , Chest CTA 03/04/21 08:23 IMPRESSION: No evidence of pulmonary embolism. Moderate size right pleural effusion with consolidation and volume loss in the right upper and right lower lobes. Right hilar and mediastinal lymphadenopathy. Pulmonary infiltrates in the left hemithorax. Pneumonitis associated with Covid should be ruled out. Electronically Signed: Raza Keita MD at 9:14 EST , Service support , Physical Exam Const alert Constitutional Narrative: Currently sitting in bedside recliner. Currently tolerating Airvo heated high flow. Tearful at times. General Appearance: cooperative Nutritional Appearance: morbidly obese HEENT normocephalic and head/scalp atraumatic Eyes PERRL, EOMs intact bilaterally and conjunctivae normal Neck supple General: trachea midline Chest inspection of chest normal Resp Auscultation: wheezes and diminished lung sounds Cardio regular rate and regular rhythm GI normal to inspection, nondistended, normoactive bowel sounds Extremity no clubbing, cyanosis or edema Skin no rashes or lesions noted Neuro CN's II-XII intact bilaterally, moves all extremities and no focal motor deficits Psych Mood & Affect: anxious Charges/Coding Visit Charges Inpatient E&M: 63808 Subs Hosp L3
[2021-03-05] MEDS: Ipratropium/Albuterol Sulfate 3 ML AMPUL.NEB INHALATION ×4 (06:53→19:15)
[2021-03-05 08:15] LABS: Hemoglobin A1c 5.8 % (3.8-5.6)
[2021-03-05] MEDS: Losartan Potassium 100 MG Tablet PO (09:07)
[2021-03-05] MEDS: Isosorbide Mononitrate 30 MG Tablet PO (09:07)
[2021-03-05] MEDS: buPROPion (XL) 300 MG TABLET.XL PO (09:07)
[2021-03-05] MEDS: Sertraline 100 MG Tablet PO (09:07)
[2021-03-05] MEDS: guaiFENesin 1,200 MG Tablet 1200 MG PO ×2 (09:07→21:04)
[2021-03-05] MEDS: Clopidogrel Bisulfate 75 MG Tablet PO (09:07)
[2021-03-05] MEDS: Carvedilol 6.25 MG Tablet PO ×2 (09:10→21:04)
[2021-03-05] MEDS: Enoxaparin 40 MG/0.4 ML Syringe SC ×2 (09:16→21:03)
--- NOTE | 2021-03-05 09:30 | CASEMGMT ---
Tertiary facilities in-network with patient's insurance: [facility], [facility], [facility], , [facility], [facility], [facility].
--- NOTE | 2021-03-05 10:46 | CASEMGMT ---
Social Work SW met w/pt in room in regard to new diagnosis, discharge plan, leaky bathroom, FMLA papers. SW spoke w/pt in room initially about the leaky bathroom. Pt explains the shower does work, but it is leaking somewhere. She states they plan to get it fixed. SW did give her resources for [employer], [employer], and [employer]. Pt states she does not know that she would qualify financially but thanked SW for the information. We then spoke about pt's diagnosis. Pt explained that she had COVID, and just assumed the symptoms she had were still from COVID. Pt was just diagnosed on the . She states she and her have been 45 years, no children. She states her is having a tough time with this as well. Pt reviewed w/SW the process of getting to this diagnosis. Support given to pt. In regard to discharge plan, pt states she still plans to return home. She states her has a lot of health problems including cellulitis and COPD. Pt does also live w/her sister, she states her sister has mental problems. SW explained we can see how she does with therapy, and if we need to revisit pt going somewhere for rehab, SW will come back and speak to her about it. There is also a chance pt may get transferred out to a tertiary facility. Pt had also asked nurse about FMLA papers. SW explained that the oncologist may be the person to complete these. SW gave pt the fax number to the ICU, let her know she can have the papers faxed here and SW will reach out to oncology. Pt works at [employer]. SW will continue to follow for any additional needs around support, resources, FMLA, and possible SNF placement. [facility]
--- NOTE | 2021-03-05 12:27 | NURSING ---
patient transferred to bed to lay flat, tolerating well, lasted over one hour laying supine.
--- NOTE | 2021-03-05 14:01 | ONC.CONSULT ---
Assessment & Plan Assessment/Plan (1) Small cell lung cancer, overlapping sites of right lung: Status: Acute Code(s): C34.81 - Malignant neoplasm of overlapping sites of right bronchus and lung Plan: Pathology report from bronchoscopy EBUS biopsying right hilar mass 02/21/2021 at [facility] (accession number [id number]) reviewed?indicates tissue positive for small cell carcinoma, immunostains are positive for TTF-1 CK7 and synaptophysin. Patient is aware of cancer diagnosis however it was thoroughly explained to the patient that staging needs to be complete to determine limited stage versus extensive stage disease which will further guide therapy. Regardless of staging chemotherapy with kalispel is indicated, specifically carboplatin AUC 5-day 1 and etoposide 100 mg per metered squared days 1 through 3 of 21-day cycle. Advise growth factor support. Given inpatient status, will require Granix 480 mcg daily days for through 7-10. Emotional support provided. (2) SIAD (syndrome of inappropriate antidiuresis): Status: Acute Code(s): E22.2 - Syndrome of inappropriate secretion of antidiuretic hormone Plan: As evidenced by Serum sodium 124, chloride 87, low serum osmolality. Common complication with SCLC. Cr 0.76. Orders placed to begin demeclocycline. (3) Liver lesion: Status: Acute Code(s): K76.9 - Liver disease, unspecified Plan: Order placed for CT abdomen with contrast to further characterize liver lesion identified on CTA chest yesterday. PET/CT and brain MRI are already scheduled for next week in the ambulatory setting per rad onc. Case Discussed with Dr. Antonio Llamas who was in agreement with the aforementioned plan. HPI Consult Data Date of Service:: 03/06/21 PCP / Referring Provider: Manuel Mortensen Attending: Dr. Olga Daniels MD Chief Complaint Chief Complaint: SCLC History of Present Illness History of Present Illness: Ms. Keturah Degroot is a very pleasant 65 year old woman with a PMH positive for CAD status post CABG, hypertension, hyperlipidemia, COPD, tobacco use, diabetes who was recently underwent bronchoscopy with EBUS at [facility] on 02/22/2020 to address right hilar mass, pathology of which returned positive for small cell carcinoma. In the midst of outpatient staging, she presented to [facility] ED on 03/04/2021 by EMS with hypoxia, after experiencing oxygen saturations in the 70%'s at home. She was afebrile. Labs significant for WBC count 14,000, elevated D-dimer, sodium level 122, chloride 84. Covid rapid antigen testing negative. CTA chest obtained in the ED demonstrated no evidence of PE but moderately sized right pleural effusion, patchy infiltrates left lung and 1.1 cm density anterior right lobe of liver. She was subsequently admitted to ICU to start on BiPAP therapy and broad-spectrum antibiotics. Patient was unaware of pathology results until meeting with radiation oncology yesterday. Upon entering the room patient is sitting upright in bedside chair. States her breathing is about the same. Oncologic history significant for endometrial cancer, 2012 s/p hysterectomy and they got it all. She was consistent with recommended follow ups. To clarify her records, she has NO history of breast cancer. She underwent a left mastectomy in 2018 as a result of infection from a dog scratch. Former smoker with 40 pack year history, quit approx 5 week ago. . 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 of Garment Fitter: No Living Will: [facility] History Abnormal stress test Anxiety state Atherosclerotic heart disease of [place] coronary artery without angina pectoris COPD (chronic obstructive pulmonary disease) Diverticulosis Encephalitis Essential hypertension History of DVT (deep vein thrombosis) History of uterine cancer Morbid obesity Old myocardial infarction Pure hypercholesterolemia Tobacco use disorder Type 2 diabetes mellitus Home Medications sertraline 100 mg tablet 100 mg PO DAILY 07/02/17 [History Last Taken 08/17/18] isosorbide mononitrate 30 mg tablet,extended release 24 hr 30 mg PO QAM #30 tab 07/08/17 [Rx Last Taken 08/18/18] bupropion HCl 300 mg PO DAILY 07/20/18 [History Last Taken 08/18/18] clopidogrel 75 mg PO DAILY 08/18/18 [History Last Taken 08/18/18] simvastatin 20 mg PO QHS 08/18/18 [History Last Taken 08/17/18] hydrochlorothiazide 25 mg PO DAILY 10/31/19 [History Last Taken Unknown] lorazepam 0.5 mg PO BID PRN PRN 10/31/19 [History Last Taken Unknown] losartan 100 mg PO DAILY 10/31/19 [History Last Taken Unknown] carvedilol 6.25 mg PO BID 12/08/20 [History Last Taken Unknown] Allergy/AdvReac Type Severity Reaction Status Date / Time cephalexin [From Keflex] Allergy Severe Rash Verified 03/04/21 06:51 levofloxacin [From Levaquin] Allergy Severe Rash Verified 03/04/21 06:51 niacin Allergy Severe Rash Verified 03/04/21 06:51 Penicillins Allergy Severe Anaphylaxis Verified 03/04/21 06:51 Sulfa (Sulfonamide Allergy Severe Rash Verified 03/04/21 06:51 Antibiotics) citalopram [From Celexa] AdvReac Severe Rash Verified 03/04/21 06:51 Estrogens AdvReac Severe blood clots Verified 03/04/21 06:51 rosuvastatin [From Crestor] AdvReac Severe myalgias Verified 03/04/21 06:51 oral contraceptives AdvReac Severe Unknown Uncoded 03/04/21 06:51 Family History Father CAD (coronary artery disease) Cancer Prostate and Bladder Mother CVA (cerebral vascular accident) Hypertension Surgical History Aortocoronary bypass status (~10/31/11) History of tonsillectomy History of total hysterectomy History of total mastectomy of left breast (~08/2018) History of tubal ligation Social History (Updated 03/04/21 @ 14:[address] Elvia Dixon MD) household members: spouse Smoking Status: Current every day smoker tobacco type: cigarettes quit status: considering quitting alcohol intake: never substance use type: does not use ROS Constitutional Constitutional: Reports malaise; Denies chills or fatigue Eyes Eyes: Denies blurry vision or change in vision ENT HEENT: Denies dizziness, epistaxis, headache(s), nasal congestion or nasal discharge Cardiovascular Cardiovascular: Reports dyspnea; Denies chest pain Respiratory/Chest Respiratory/Chest: Reports cough, dyspnea and wheezing Gastrointestinal Gastrointestinal: Denies abdominal pain, diarrhea, nausea or vomiting Genitourinary Genitourinary: Denies difficulty urinating Musculoskeletal Musculoskeletal: Denies arthralgias, back pain or joint pain Integumentary Integumentary: Denies lesions, rash or skin ulcer Neurologic Neurologic: Reports other Details: denies any changes in her vision, nausea/vomiting ; Denies abnormal gait, abnormal speech, dizziness, focal weakness, frequent falls, headache(s), lack of coordination, loss of vision or tingling Psychiatric Psychiatric: Denies anxiety or depression Endocrine Endocrinology: Denies fatigue Hematologic/Lymphatic Hematologic/Lymphatic: Denies easy bleeding or easy bruising Physical Exam Const alert and oriented x3 Constitutional Narrative: modearte distress. Super morbid obesity HEENT head/scalp atraumatic and moist oral mucous membranes Head and Scalp: normocephalic Eyes PERRL Neck no lymphadenopathy, supple and no JVD Resp Resp Narrative: Eupneic. On air Vo. Diminished breath sounds bibasilarly. No wheezes or crackles. Cardio regular rate, regular rhythm, S1 normal heart sound and S2 normal heart sound GI normal to inspection, nondistended, normoactive bowel sounds, soft to palpation, non-tender and non-distended GI Narrative: obese abdomen Extremity normal to inspection, full ROM and no clubbing, cyanosis or edema Peripheral Pulses: Yes pulses 2+ throughout Skin no rashes or lesions noted Skin Narrative: Wound left chin covered with DSD General Skin Exam: Negative for ecchymosis, erythema, jaundice or petechiae Neuro oriented x3, CN's II-XII intact bilaterally and moves all extremities Sensorium / Orientation: awake and alert Psych Mood & Affect: anxious and tearful Attention / Concentration: attention grossly impaired Vital Signs Temperature 98.0 F 03/05/21 12:00 Temperature Source Oral 03/05/21 12:00 Pulse Rate 74 03/05/21 13:00 Respiratory Rate 26 H 03/05/21 13:00 Respiratory Effort Non-Labored 03/05/21 12:00 Respiratory Depth Normal 03/05/21 12:00 Respiratory Pattern Normal 03/05/21 12:00 Blood Pressure 125/65 H 03/05/21 13:00 Blood Pressure Mean 85 03/05/21 13:00 Blood Pressure Source Monitor 03/05/21 13:00 Blood Pressure Position Sitting 03/05/21 13:00 Blood Pressure Location Left Forearm 03/05/21 13:00 Pulse Ox 94 03/05/21 13:00 Oxygen Delivery Method Airvo 03/05/21 13:00 Oxygen Flow Rate (L/min) 50 03/05/21 13:00 Fraction of Inspired Oxygen (FIO2) 93 03/05/21 13:00 Laboratory Results - last 24 hr 03/04/21 11:50: MRSA (PCR) Negative 03/04/21 15:05: Serum Osmolality 266 L 03/04/21 15:05: Procalcitonin 0.40 H 03/05/21 03:00: WBC 12.3 H, RBC 5.95 H, Hgb 15.0, Hct 47.3 H, MCV 79.5 L, MCH 25.2 L, MCHC 31.7 L, RDW Std Deviation 42.0, RDW Coeff of Melina 14.6, Plt Count 308, MPV 10.4, Immature Gran % (Auto) 0.600, Neut % (Auto) 90.4 H, Lymph % (Auto) 4.7 L, [place] % (Auto) 4.0, Eos % (Auto) 0.0, Baso % (Auto) 0.3, Absolute Neuts (auto) 11.1 H, Absolute Lymphs (auto) 0.58 L, Nucleated RBC % 0 03/05/21 03:00: Sodium 124 L, Potassium 4.0, Chloride 87 L, Carbon Dioxide 30.0, Anion Gap 7, BUN 13, Creatinine 0.76, Estim Creat Clear Calc 58.37, Est GFR (MDRD) Af Amer 98, Est GFR (MDRD) Non-Af 81, BUN/Creatinine Ratio 17.1, Glucose 172 H, Calcium 9.9, Total Bilirubin 0.50, AST 19, ALT 16, Alkaline Phosphatase 119 H, Total Protein 7.5, Albumin 2.4 L, Globulin 5.1 H, Albumin/Globulin Ratio 0.5 L 03/05/21 03:00: Cortisol 18.50 03/05/21 03:00: Hemoglobin A1c 5.8 H Microbiology 03/04/21 15:00 Sputum, Expectorated/Coughed Gram Stain - Final 03/04/21 15:00 Sputum, Expectorated/Coughed Respiratory Culture - Preliminary Appears to be normal respiratory janeen. Further studies to follow. 03/04/21 11:30 Urine Catheter - Catheter Legionella Antigen - Final 03/04/21 11:30 Urine Catheter - Catheter Streptococcus pneumoniae Antigen (M - Final Diagnostic Data Chest X-Ray 03/04/21 07:35 IMPRESSION: 1. Dense opacification of the right chest with overlying devices. Differential considerations include a mass versus dense airspace disease. 2. Heterogeneous left-sided airspace disease and what may represent some pulmonary congestion. Electronically Signed: Angela Childers MD at 7:54 EST , Service support , Chest CTA 03/04/21 08:23 IMPRESSION: No evidence of pulmonary embolism. Moderate size right pleural effusion with consolidation and volume loss in the right upper and right lower lobes. Right hilar and mediastinal lymphadenopathy. Pulmonary infiltrates in the left hemithorax. Pneumonitis associated with Covid should be ruled out. Electronically Signed: Raza Keita MD at 9:14 EST , Service support ,
--- NOTE | 2021-03-05 14:37 | PN.HOSP_ITS ---
Subjective Subjective Patient seen and examined. Her [id number] was present at bedside. Patient looked quite distraught because she had just been informed her biopsy results of the lung mass or come back positive for small cell lung cancer. She described getting the news as being hit by a train bus. She remained on air Vo. She felt like her shortness of breath had only marginally improved. She denied any chest pain, nausea, vomiting or diarrhea. Review of systems is otherwise negative. She was awaiting evaluation by oncology Objective Data Objective Data Vital Signs: Vital Signs Temp Pulse Resp BP Pulse Ox 98.0 F 74 26 H 125/65 H 94 03/05/21 12:00 03/05/21 13:00 03/05/21 13:00 03/05/21 13:00 03/05/21 13:00 Oxygen Flow Rate (L/min) 50 Oxygen Delivery Method Airvo Weight: 275 lb 12.772 oz Body Mass Index (BMI) 48.9 Intake & Output: Intake and Output for Last 24 Hours 03/03/21 03/04/21 03/05/21 23:59 23:59 23:59 Intake Total 1663.33 / 1903.33 2265 / 2265 Output Total 450 / 450 600 / 600 Balance 1213.33 / 1453.33 1665 / 1665 Lab / Micro Data Result Diagrams: 03/05/21 03:00 03/05/21 03:00 Labs: Laboratory Results - last 24 hr 03/04/21 11:50: MRSA (PCR) Negative 03/04/21 15:05: Serum Osmolality 266 L 03/04/21 15:05: Procalcitonin 0.40 H 03/05/21 03:00: WBC 12.3 H, RBC 5.95 H, Hgb 15.0, Hct 47.3 H, MCV 79.5 L, MCH 25.2 L, MCHC 31.7 L, RDW Std Deviation 42.0, RDW Coeff of Melina 14.6, Plt Count 308, MPV 10.4, Immature Gran % (Auto) 0.600, Neut % (Auto) 90.4 H, Lymph % (Auto) 4.7 L, [place] % (Auto) 4.0, Eos % (Auto) 0.0, Baso % (Auto) 0.3, Absolute Neuts (auto) 11.1 H, Absolute Lymphs (auto) 0.58 L, Nucleated RBC % 0 03/05/21 03:00: Sodium 124 L, Potassium 4.0, Chloride 87 L, Carbon Dioxide 30.0, Anion Gap 7, BUN 13, Creatinine 0.76, Estim Creat Clear Calc 58.37, Est GFR (M DRD) Af Amer 98, Est GFR (MDRD) Non-Af 81, BUN/Creatinine Ratio 17.1, Glucose 172 H, Calcium 9.9, Total Bilirubin 0.50, AST 19, ALT 16, Alkaline Phosphatase 119 H, Total Protein 7.5, Albumin 2.4 L, Globulin 5.1 H, Albumin/Globulin Ratio 0.5 L 03/05/21 03:00: Cortisol 18.50 03/05/21 03:00: Hemoglobin A1c 5.8 H Micro: Microbiology 03/04/21 15:00 Sputum, Expectorated/Coughed Gram Stain - Final 03/04/21 15:00 Sputum, Expectorated/Coughed Respiratory Culture - Preliminary Appears to be normal respiratory janeen. Further studies to follow. 03/04/21 11:30 Urine Catheter - Catheter Legionella Antigen - Final 03/04/21 11:30 Urine Catheter - Catheter Streptococcus pneumoniae Antigen (M - Final 03/04/21 07:20 Nasal Secretion SARS-CoV-2 Antigen (Rapid) - Final Physical Exam Const alert and oriented x3 Constitutional Narrative: modearte distress. Super morbid obesity HEENT head/scalp atraumatic and moist oral mucous membranes Head and Scalp: normocephalic Eyes PERRL Neck no lymphadenopathy, supple and no JVD Resp Resp Narrative: Eupneic. On air Vo. Diminished breath sounds bibasilarly. No wheezes or crackles. Cardio regular rate, regular rhythm, S1 normal heart sound and S2 normal heart sound GI normal to inspection, nondistended, normoactive bowel sounds, soft to palpation, non-tender and non-distended GI Narrative: obese abdomen Extremity normal to inspection, full ROM and no clubbing, cyanosis or edema Peripheral Pulses: Yes pulses 2+ throughout Skin no rashes or lesions noted Neuro oriented x3, CN's II-XII intact bilaterally and moves all extremities Sensorium / Orientation: awake and alert Psych Mood & Affect: anxious Assessment & Plan Assessment/Plan (1) SIAD (syndrome of inappropriate antidiuresis): (2) Small cell lung cancer, overlapping sites of right lung: (3) Acute respiratory failure with hypoxia: PLAN: #Acute on chronic hypoxic respiratory failure due to post obtructive pneumonia and left thoracentesis from newly diagnosed right small cell carcinoma * on Airvo * biopsy results came out as small cell lung cancer * radiation therapy, pulmonology and oncology on board * On IV vancomycin and zosyn. sputum cultures pendig * For thoracentesis if no improvement in oxygenation status * #Newly diagnosed small cell lung cancer * Radiation oncology and oncology consulted. Radiation simulation tomorrow. #Hyponatremia: * Sodium is 124. Was 122 on admission. Fluids stopped. Serum osmolality is 266 which is low. Urine osmolality is elevated at 390. * This is likely SIADH from cancer. * Fluid restriction to 1500cc daily * If hyponatremia persists, will consult nephrology. * #CAD s/p CABG and stents: On Plavix, statin and Coreg as well as losartan #Hypertension: * On Coreg, losartan and Imdur. * IV hydralazine as needed. * Hydrochlorothiazide discontinued on account of hyponatremia #Hyperlipidemia: On statin #Anxiety: On bupropion. #Type 2 diabetes mellitus: Appears to be diet controlled as she is not on any medication. A1c pending. #History of breast and uterine cancer: S/p total hysterectomy and left mastectomy. Follow-up with oncology on outpatient basis #Extensive nicotine dependence: Counseled to quit. Nicotine patch ordered. DVT prophylaxis: Lovenox Charges/Coding Visit Charges Inpatient E&M: 68428 Subs Hosp L3
--- NOTE | 2021-03-05 16:13 | CHAPLAIN ---
Type of Pastoral Visit _x__ Initial Visit ___ Follow-up Visit ___ On-call Visit ___ General Patient Visit ___ Spiritual Assessment ___ Family Conference ___ Bereavement ___ Rapid Response ___ Code Blue ___ Other (describe below) Pastoral Care Referral From ___ Patient ___ Family _x__ Nurse ___ Physician ___ Dining Room Captain ___ French Polisher ___ Other (describe below) Sacrament/Intervention _x__ Active listening ___ Anointing ___ Gnosticism ___ Bereavement ___ Communion ___ Hannah exploration ___ _x__ Life review _x__ Prayer ___ Reconciliation ___ Sacrament of Sick _x__ Supportive presence ___ Wedding ___ Other (describe below) Pastoral Comments visit recommended by RN and then welcomed by patient who was able and willing to talk at length about her situation, needs for others in her family, and the feelings associated with this new diagnosis and circumstances of her life; pt could list a few things that have been helpful in the past when she has faced a health crisis; focus on keeping in the present, using her resources to get her support and peace; pt welcomed prayer and also future visits
[2021-03-05] MEDS: Atorvastatin Calcium 10 MG Tablet PO (21:04)
[2021-03-06] VITALS (37 sets, daily range): BP systolic 101–169; BP diastolic 69–131; PULSE 63–83; RESP 12–24; TEMP 36.1–36.6; O2SAT 92–98
[2021-03-06 00:56] LABS: Vancomycin, Trough Level 14.8 ug/mL (5.0-15.0)
--- NOTE | 2021-03-06 01:10 | PCM.RX.CS ---
Consult Pharmacy has been consulted to manage selected antiobiotic: Vancomycin Type of Consult: Follow-up Suspected Infection: Pneumonia Prior Doses of Antibiotics Received/Current Regimen: Medications Vancomycin HCl 1,250 mg/ (Sodium Chloride) 275 mls @ 167 mls/hr IV Q12H ABNER Last Admin: 03/05/21 12:25 Dose: Infused Labs: Sodium 124 mmol/L (136-145) L 03/05/21 03:00 Potassium 4.0 mmol/L (3.5-5.1) 03/05/21 03:00 Chloride 87 mmol/L (98-107) L 03/05/21 03:00 Carbon Dioxide 30.0 mmol/L (21.0-32.0) 03/05/21 03:00 Anion Gap 7 (5-15) 03/05/21 03:00 BUN 13 mg/dL (7-18) 03/05/21 03:00 Creatinine 0.76 mg/dL (0.55-1.02) 03/05/21 03:00 Est GFR (MDRD) Af Amer 98 mL/min (>60) 03/05/21 03:00 Est GFR (MDRD) Non-Af 81 mL/min (>60) 03/05/21 03:00 BUN/Creatinine Ratio 17.1 RATIO (10-20) 03/05/21 03:00 Glucose 172 mg/dL (74-106) H 03/05/21 03:00 Vancomycin Trough 14.8 ug/mL (5.0-15.0) 03/06/21 00:21 Microbiology: Microbiology 03/04/21 15:00 Sputum, Expectorated/Coughed Gram Stain - Final 03/04/21 15:00 Sputum, Expectorated/Coughed Respiratory Culture - Preliminary Appears to be normal respiratory janeen. Further studies to follow. 03/04/21 11:30 Urine Catheter - Catheter Legionella Antigen - Final 03/04/21 11:30 Urine Catheter - Catheter Streptococcus pneumoniae Antigen (M - Final 03/04/21 07:20 Nasal Secretion SARS-CoV-2 Antigen (Rapid) - Final Weight used for dosin kg Estimated Creatinine Clearance: 58 Goal Trough: 15-20 mcg/mL Pharmacy Plan for Drug Dosing: Vancomycin trough draw was delayed slightly due to access issue. It was drawn 13.7hrs after previous dose. Even so, the level of 14.8 was just slightly below target range. Will continue same dosing and re-draw a trough in 2 days. Pharmacy Service will continue to monitor and adjust dosing as required. Follow-Up Labs: Trough Vancomycin Labs to be done on [date and time ordered]: 03/07/21 @[id number]
[2021-03-06] MEDS: LORazepam 0.5 MG Tablet PO (06:28)
--- NOTE | 2021-03-06 06:34 | PCM.PN.INT ---
Assessment & Plan Assessment/Plan (1) Acute respiratory failure with hypoxia: PLAN: RECOMMENDATIONS: 1. Wean FiO2 for saturations greater than 90%. 2. Continue empiric broad-spectrum antimicrobials. 3. Port placement today to facilitate chemotherapy administration. 4. Continue bronchodilators. 5. Consider thoracentesis if no improvement in oxygenation status. IMPRESSIONS: 1. Acute on chronic hypoxemic respiratory failure The patient presented to the hospital with worsening dyspnea and hypoxemia in the setting of a new diagnosis of small cell lung cancer. The patient has presumptive COPD along with a extensive tobacco abuse history. The etiology for her clinical decompensation is likely secondary to underlying untreated, progressive lung cancer leading to postobstructive pneumonia. Therefore, it is reasonable to continue empiric antimicrobials as ordered. If the patient's oxygenation status does not improve, can consider thoracentesis. However, I do suspect that the main issue at play here is the fact that she has progressive lung cancer that is causing significant extrinsic compression and subsequent airway collapse. For now, continue heated high flow oxygen and wean FiO2 for saturations greater than 90%. Continue bronchodilators. Following evaluation by oncology and radiation oncology, the decision was made to proceed with inpatient chemotherapy initiation. General surgery to place port today. Ultimately, the patient needs to complete her staging work-up which would include a PET scan and MRI brain. 2. Extensive tobacco abuse history Smoking cessation was discussed with the patient. Nicotine replacement therapy can be offered while admitted to the hospital. 3. History of coronary artery disease status post CABG/hypertension/hyperlipidemia/depression/anxiety Complicates care, management, recovery and prognosis. Continue home medications as indicated. This note was generated with [employer] dictation software. It may contain incorrect words, spelling, and punctuation that were not noted in checking the note before signing. Subjective Subjective The patient was seen and examined at the bedside this morning. Events from the last 24 hours have been reviewed. The patient is currently afebrile, hemodynamically stable and maintaining appropriate oxygen saturations on Airvo heated high flow with an FiO2 requirement of 83% and flow rate of 50 L/min. No overnight events were noted by the nursing staff. The patient is currently documented to be overall net +3.9 L for the hospitalization. She remains on broad-spectrum antimicrobials. Following my discussion with the oncology team yesterday, they are planning to begin inpatient chemotherapy today. I did call and speak with Dr. De Santiago of surgery this morning regarding the need for port placement. The patient has been tentatively scheduled in the OR this morning at 0930. Objective Data Objective Data The patient's most recent lab work, culture data and imaging studies have all been personally reviewed. Rapid coronavirus antigen testing was negative. Blood cultures are pending. Strep and urine Legionella antigens were negative. Sputum culture is pending. Vital Signs: Vital Signs Temp Pulse Resp BP Pulse Ox 97.9 F 69 17 155/94 H 93 03/06/21 00:00 03/06/21 06:00 03/06/21 06:00 03/06/21 06:00 03/06/21 06:00 Oxygen Flow Rate (L/min) 50 Oxygen Delivery Method Airvo Weight: 125.1 kg Body Mass Index (BMI) 48.9 Intake & Output: Intake and Output for Last 24 Hours 03/04/21 03/05/21 03/06/21 23:59 23:59 23:59 Intake Total 1663.33 / 1903.33 3201.67 / 3201.67 695 / 695 Output Total 450 / 450 850 / 850 350 / 350 Balance 1213.33 / 1453.33 2351.67 / 2351.67 345 / 345 Lab / Micro Data Attestation: I reviewed the patient's lab results. Result Diagrams: 03/06/21 05:56 03/06/21 05:56 Labs: Laboratory Results - last 24 hr 03/05/21 03:00: Hemoglobin A1c 5.8 H 03/06/21 00:21: Vancomycin Trough 14.8 Micro: Microbiology 03/04/21 15:00 Sputum, Expectorated/Coughed Gram Stain - Final 03/04/21 15:00 Sputum, Expectorated/Coughed Respiratory Culture - Preliminary Appears to be normal respiratory janeen. Further studies to follow. 03/04/21 11:30 Urine Catheter - Catheter Legionella Antigen - Final 03/04/21 11:30 Urine Catheter - Catheter Streptococcus pneumoniae Antigen (M - Final 03/04/21 07:20 Nasal Secretion SARS-CoV-2 Antigen (Rapid) - Final Physical Exam Const alert Constitutional Narrative: Currently sitting in bedside recliner. Currently tolerating Airvo heated high flow. General Appearance: cooperative Nutritional Appearance: morbidly obese HEENT normocephalic and head/scalp atraumatic Eyes PERRL, EOMs intact bilaterally and conjunctivae normal Neck supple General: trachea midline Chest inspection of chest normal Resp Auscultation: wheezes and diminished lung sounds Cardio regular rate and regular rhythm GI normal to inspection, nondistended, normoactive bowel sounds Extremity no clubbing, cyanosis or edema Skin no rashes or lesions noted Neuro CN's II-XII intact bilaterally, moves all extremities and no focal motor deficits Psych Mood & Affect: anxious Charges/Coding Visit Charges Inpatient E&M: 05471 Subs Hosp L3
[2021-03-06 06:40] LABS: Absolute Lymphocyte Count 0.89 X10^3/uL (0.83-4.51); Absolute Neutrophil Count 14.7 X10^3/uL (2.0-7.7); Basophil# 0.03 X10^3/uL; Basophil% 0.2 % (0-1); Eosinophil# 0.05 X10^3/uL; Eosinophils% 0.3 % (0-5); Hematocrit 47.2 % (37-47); Lymphocyte # 0.89 X10^3/ul (0.83-4.51); Lymphocyte % 5.3 % (19-41); Mean Corp Hgb Conc 31.8 g/dL (32-36); Mean Corpuscular Hgb 25.6 pg (27.0-32.0); Mean Corpuscular Volume 80.5 fL (81-99); Mean Platelet Vol. 10.4 fl (6.2-12.0); Monocyte# 1.05 X10^3/uL; Monocyte% 6.2 % (0-10); NRBC Flagged by Analyzer 0 % (0-5); Neutrophil # 14.67 X10^3/uL (2.7-7.7); Neutrophil % 87.2 % (47-70); Platelet Count 340 K/mm3 (150-450); RBC Distribution Width CV 14.6 % (11.6-14.6); RBC Distribution Width SD 42.5 fl (35.1-43.9); Red Blood Count 5.86 M/mm3 (4.2-5.4); White Blood Count 16.8 K/mm3 (4.4-11.0)
[2021-03-06] MEDS: Ipratropium/Albuterol Sulfate 3 ML AMPUL.NEB INHALATION ×3 (07:13→19:11)
[2021-03-06 07:44] LABS: Anion Gap 7 (5-15); BUN 17 mg/dL (7-18); BUN/Creat Ratio 26.9 RATIO (10-20); Calcium,Total 10.3 mg/dL (8.5-10.1); Chloride 92 mmol/L (98-107); Creatinine, Serum 0.63 mg/dL (0.55-1.02); EST Glomerular Filtration Rate 101 mL/min (>60); Est Glom Filt Rate - Afr Amer 122 mL/min (>60); Estimated Creatinine Clearance 70.41 ml/min; Glucose 125 mg/dL (74-106); Potassium 3.7 mmol/L (3.5-5.1); Sodium Level 126 mmol/L (136-145)
--- NOTE | 2021-03-06 08:56 | EX.PCM.CON.S ---
Assessment & Plan Assessment/Plan (1) Small cell lung cancer, overlapping sites of right lung: PLAN: Is a 65-year-old female with numerous other comorbidities who presents with a new diagnosis of small cell lung cancer the right lung. The tumor is partially obstructing the airway and therefore, oncology seeks to initiate inpatient treatment. Patient has difficult venous access at baseline, and therefore surgery is consulted for urgent port placement. According to the patient's own history, she likely had a prior PICC line in the left upper extremity, but denies prior central venous catheter. Given the tumor's position within the lung, I tried to ascertain if there is any central venous impingement through the thoracic outlet, but significant scatter largely precludes this on the patient's recent chest CTA. I will plan for ultrasound-guided right versus left port placement. The patient is at increased bleeding risk given concurrent antiplatelet and prophylactic anticoagulation. I have counseled the patient on the need for mandating absolute the sterile technique with port access and risk for infection. She expresses an understanding of all this information and her difficult IV access and wishes to proceed as described. HPI Consult Data Date of Consult: 03/06/21 HPI Narrative HPI Narrative: OLENA HEALY, is a 65 F with past medical history to include CAD status post CABG 2011, COPD, hypertension, diabetes type 2 mellitus, obesity, uterine cancer who presented to [facility] several days ago on transfer from outside hospital with a diagnosis of right upper lobe small cell carcinoma that was partially obstructing the bronchus. Patient states that she has a [id number] history of smoking, but started with shortness of breath around November 2020 when she was diagnosed with Covid. Symptoms of shortness of breath and cough persisted well into December and she was advised by her PCP that this could be residual effects of her Covid diagnosis and not to worry. However, she presented for Covid vaccination in January and, thereafter, experienced significant exacerbation of her dyspnea. This led to an evaluation at [facility] where she was noted to have an abnormal x-ray and ultimately underwent EBUS earlier this month which was positive for cancer. She has been evaluated by both medical oncology and radiation oncology at this facility?their joint plan is to begin inpatient treatment to hopefully alleviate external compression on the patient's airway. She is due to start this chemotherapy today and surgery is consulted to evaluate for possible Chemo-Port placement today. Patient denies ever having a prior port and clarifies that her left mastectomy was occasioned by a severe infection from a dog scratch, not cancer related. She does believe she had a PICC line placed in her left upper extremity around the time of this infection. Patient is currently on Plavix?related to her coronary artery disease?and prophylactic Lovenox (40 mg twice daily) during her acute inpatient stay. [facility] Medical History Abnormal stress test Anxiety state Atherosclerotic heart disease of [place] coronary artery without angina pectoris COPD (chronic obstructive pulmonary disease) Diverticulosis Encephalitis Essential hypertension History of DVT (deep vein thrombosis) History of uterine cancer Morbid obesity Old myocardial infarction Pure hypercholesterolemia Tobacco use disorder Type 2 diabetes mellitus Home Medications sertraline 100 mg tablet 100 mg PO DAILY 07/02/17 [History Last Taken 08/17/18] isosorbide mononitrate 30 mg tablet,extended release 24 hr 30 mg PO QAM #30 tab 07/08/17 [Rx Last Taken 08/18/18] bupropion HCl 300 mg PO DAILY 07/20/18 [History Last Taken 08/18/18] clopidogrel 75 mg PO DAILY 08/18/18 [History Last Taken 08/18/18] simvastatin 20 mg PO QHS 08/18/18 [History Last Taken 08/17/18] hydrochlorothiazide 25 mg PO DAILY 10/31/19 [History Last Taken Unknown] lorazepam 0.5 mg PO BID PRN PRN 10/31/19 [History Last Taken Unknown] losartan 100 mg PO DAILY 10/31/19 [History Last Taken Unknown] carvedilol 6.25 mg PO BID 12/08/20 [History Last Taken Unknown] Allergy/AdvReac Type Severity Reaction Status Date / Time cephalexin [From Keflex] Allergy Severe Rash Verified 03/04/21 06:51 levofloxacin [From Levaquin] Allergy Severe Rash Verified 03/04/21 06:51 niacin Allergy Severe Rash Verified 03/04/21 06:51 Penicillins Allergy Severe Anaphylaxis Verified 03/04/21 06:51 Sulfa (Sulfonamide Allergy Severe Rash Verified 03/04/21 06:51 Antibiotics) citalopram [From Celexa] AdvReac Severe Rash Verified 03/04/21 06:51 Estrogens AdvReac Severe blood clots Verified 03/04/21 06:51 rosuvastatin [From Crestor] AdvReac Severe myalgias Verified 03/04/21 06:51 oral contraceptives AdvReac Severe Unknown Uncoded 03/04/21 06:51 Family History Father CAD (coronary artery disease) Cancer Prostate and Bladder Mother CVA (cerebral vascular accident) Hypertension Surgical History Aortocoronary bypass status (~10/31/11) History of tonsillectomy History of total hysterectomy History of total mastectomy of left breast (~08/2018) History of tubal ligation Social History (Updated 03/04/21 @ 14:[address] Elvia Dixon MD) household members: spouse Smoking Status: Current every day smoker tobacco type: cigarettes quit status: considering quitting alcohol intake: never substance use type: does not use Physical Exam Const alert and oriented x3 Constitutional Narrative: Patient is found sitting upright and out of bed in a chair. She is initially under no acute distress, but enters several coughing fits where it takes a moment for her to regain her breath. Nutritional Appearance: obese Chest Chest Narrative: Patient has a number of anterior chest wall nevi, but no scars on the right chest wall. There is a small scar in the lateral aspect of the patient's anterior left neck, but she is unable to recall its origin. Resp Resp Narrative: Interval in place with patient saturating 94% on pulse oximetry Lab / Micro Data Result Diagrams: 03/06/21 05:56 03/06/21 05:56 Labs: Laboratory Results - last 24 hr 03/06/21 00:21: Vancomycin Trough 14.8 03/06/21 05:56: WBC 16.8 H, RBC 5.86 H, Hgb 15.0, Hct 47.2 H, MCV 80.5 L, MCH 25.6 L, MCHC 31.8 L, RDW Std Deviation 42.5, RDW Coeff of Melina 14.6, Plt Count 340, MPV 10.4, Immature Gran % (Auto) 0.800, Neut % (Auto) 87.2 H, Lymph % (Auto) 5.3 L, [place] % (Auto) 6.2, Eos % (Auto) 0.3, Baso % (Auto) 0.2, Absolute Neuts (auto) 14.7 H, Absolute Lymphs (auto) 0.89, Nucleated RBC % 0 03/06/21 05:56: Sodium 126 L, Potassium 3.7, Chloride 92 L, Carbon Dioxide 27.0, Anion Gap 7, BUN 17, Creatinine 0.63, Estim Creat Clear Calc 70.41, Est GFR (MDRD) Af Amer 122, Est GFR (MDRD) Non-Af 101, BUN/Creatinine Ratio 26.9 H, Glucose 125 H, Calcium 10.3 H Micro: Microbiology 03/04/21 07:00 Blood Culture (Wb) - Left Hand Blood Culture - Preliminary No growth in 48 hours. 03/04/21 15:00 Sputum, Expectorated/Coughed Gram Stain - Final 03/04/21 15:00 Sputum, Expectorated/Coughed Respiratory Culture - Preliminary Appears to be normal respiratory janeen. Further studies to follow. Charges/Coding Visit Charges Inpatient E&M: 64365 Init Hosp L2
--- NOTE | 2021-03-06 09:34 | PN.HOSP_ITS ---
Subjective Subjective Patient seen and examined. She still feels short of breath. She has no other active complaints. She remains on air Vo. Review of systems otherwise negative. She is to have a port placed today and to start chemotherapy today. Objective Data Objective Data Vital Signs: Vital Signs Temp Pulse Resp BP Pulse Ox 97.9 F 71 18 149/85 H 94 03/06/21 00:00 03/06/21 08:00 03/06/21 08:00 03/06/21 08:00 03/06/21 08:00 Oxygen Flow Rate (L/min) 50 Oxygen Delivery Method Airvo Weight: 275 lb 12.772 oz Body Mass Index (BMI) 48.9 Intake & Output: Intake and Output for Last 24 Hours 03/04/21 03/05/21 03/06/21 23:59 23:59 23:59 Intake Total 1663.33 / 1903.33 3201.67 / 3201.67 815 / 815 Output Total 450 / 450 850 / 850 350 / 350 Balance 1213.33 / 1453.33 2351.67 / 2351.67 465 / 465 Lab / Micro Data Result Diagrams: 03/06/21 05:56 03/06/21 05:56 Labs: Laboratory Results - last 24 hr 03/06/21 00:21: Vancomycin Trough 14.8 03/06/21 05:56: WBC 16.8 H, RBC 5.86 H, Hgb 15.0, Hct 47.2 H, MCV 80.5 L, MCH 25.6 L, MCHC 31.8 L, RDW Std Deviation 42.5, RDW Coeff of Melina 14.6, Plt Count 340, MPV 10.4, Immature Gran % (Auto) 0.800, Neut % (Auto) 87.2 H, Lymph % (Auto) 5.3 L, [place] % (Auto) 6.2, Eos % (Auto) 0.3, Baso % (Auto) 0.2, Absolute Neuts (auto) 14.7 H, Absolute Lymphs (auto) 0.89, Nucleated RBC % 0 03/06/21 05:56: Sodium 126 L, Potassium 3.7, Chloride 92 L, Carbon Dioxide 27.0, Anion Gap 7, BUN 17, Creatinine 0.63, Estim Creat Clear Calc 70.41, Est GFR (MDRD) Af Amer 122, Est GFR (MDRD) Non-Af 101, BUN/Creatinine Ratio 26.9 H, Glucose 125 H, Calcium 10.3 H Micro: Microbiology 03/04/21 07:00 Blood Culture (Wb) - Left Hand Blood Culture - Preliminary No growth in 48 hours. 03/04/21 15:00 Sputum, Expectorated/Coughed Gram Stain - Final 03/04/21 15:00 Sputum, Expectorated/Coughed Respiratory Culture - Preliminary Appears to be normal respiratory janeen. Further studies to follow. 03/04/21 11:30 Urine Catheter - Catheter Legionella Antigen - Final 03/04/21 11:30 Urine Catheter - Catheter Streptococcus pneumoniae Antigen (M - Final 03/04/21 07:20 Nasal Secretion SARS-CoV-2 Antigen (Rapid) - Final Physical Exam Const alert, oriented x3 and no apparent distress Constitutional Narrative: Super morbid obesity Exam Limitations: no limitations Nutritional Appearance: morbidly obese HEENT head/scalp atraumatic and moist oral mucous membranes Head and Scalp: normocephalic Eyes PERRL Neck no lymphadenopathy, supple and no JVD Resp Resp Narrative: Still on air Vo. Diminished breath sounds bibasilarly. No wheezes or crackles. Cardio regular rate, regular rhythm, S1 normal heart sound and S2 normal heart sound GI normal to inspection, nondistended, normoactive bowel sounds, soft to palpation, non-tender and non-distended GI Narrative: obese abdomen Extremity normal to inspection, full ROM and no clubbing, cyanosis or edema Peripheral Pulses: Yes pulses 2+ throughout Skin no rashes or lesions noted Neuro oriented x3, CN's II-XII intact bilaterally and moves all extremities Sensorium / Orientation: awake and alert Psych affect normal Assessment & Plan Assessment/Plan (1) SIAD (syndrome of inappropriate antidiuresis): (2) Small cell lung cancer, overlapping sites of right lung: (3) Acute respiratory failure with hypoxia: PLAN: #Acute on chronic hypoxic respiratory failure due to post obtructive pneumonia and left thoracentesis from newly diagnosed right small cell lung carcinoma * still on Airvo * biopsy results came out as small cell lung cancer * radiation therapy, pulmonology and oncology on board * On IV vancomycin and zosyn. sputum cultures pendig * For thoracentesis if no improvement in oxygenation status * #Newly diagnosed small cell lung cancer * Radiation oncology and oncology consulted. Radiation simulation tomorrow. * for initiation of chemotherapy today per oncology * general surgery consulted for port placement. #Hyponatremia: * Sodium is 126 today. Due to SIADH from small cell lung cancer * started on demeclocycline by oncology * trend sodium * #CAD s/p CABG and stents: On Plavix, statin and Coreg as well as losartan #Hypertension: * On Coreg, losartan and Imdur. * IV hydralazine as needed. * Hydrochlorothiazide discontinued on account of hyponatremia #Hyperlipidemia: On statin #Anxiety: On bupropion. #Type 2 diabetes mellitus: Appears to be diet controlled as she is not on any medication. A1c pending. #History of uterine cancer: * S/p total hysterectomy Follow-up with oncology on outpatient basis. * OF note she had the left mastectomy due to a breast infection from dog bite, NOT breast cancer. #Extensive nicotine dependence: Counseled to quit. on nicotine patch DVT prophylaxis: Lovenox Charges/Coding Visit Charges Inpatient E&M: 88901 Subs Hosp L3
[2021-03-06] MEDS: hydrALAZINE 20 MG/ML Vial 10 MG IV (09:50)
[2021-03-06] MEDS: 0.9% Saline Lock 10 ML Syringe IV ×4 (09:51→23:38)
[2021-03-06] MEDS: Bupivacaine 0.5% PF 10 ML VIAL (10:52)
--- NOTE | 2021-03-06 11:44 | OP.PCM_ITS ---
Report of Operation Date of Procedure: 03/06/21 Pre-Operative Diagnosis: Right upper lobe small cell lung cancer requiring inpa tient chemotherapy Post-Operative Diagnosis: Same Surgery/Procedure Performed:: Ultrasound?guided right internal jugular port placement Description of Surgical Findings:: ?Placement of 8 Polish PowerPort ISP MRI implantable port Lot [id number] expiration 02/08/2022 ?Normal vascular anatomy with appropriate placement of guidewire on initial access attempt ?Catheter tip placement below the level of the joe ?Easy aspiration and flush with port function Surgeon: Bryan De Santiago Type of Anesthesia: MAC/Supplemental Anesthesiologist: Macho Fletcher Specimen's removed: NA Drains: NA Estimated Blood Loss (mL): 15 Description of Procedure: After appropriate identification in the CVICU, the patient was brought to the operating room. She was receiving broad-spectrum antibiotics out of concern for possible underlying pneumonia so no preoperative antibiotics were ordered. In the OR, she was positioned supine on the operating room table taking care to pad her pressure points as her right arm was tucked. Once sedation was begun, the upper chest and lower cervical region were prepped and draped in usual sterile fashion. A formal timeout was then conducted to confirm both the patient and procedure. Ultrasound was used to localize the right internal jugular vein. Then a wheal of half percent bupivacaine was raised superficially in this location and the vein was accessed under direct ultrasound guidance with a micropuncture needle using a Seldinger technique to place a guidewire. The position of the guidewire was confirmed with fluoroscopy. The needle was exchanged with the provided sheath and this permitted placement of a standard 035 guidewire. Next the position of the port pocket was determined beneath the clavicle, and again local anesthetic was used to anesthetize the area of both the pocket and the tunneling cephalad. A transverse incision 3 cm in width was made down through the subcutaneous tissue. Selective electrocautery was used to obtain hemostasis as the patient was oozy?probably owing to concurrent Plavix and Lovenox. Then with blunt dissection the port pocket was developed. The catheter was connected to the tunneler and was tunneled up to the position of the guidewire in the patient's lower neck. Here the dilator and peel-away sheath were placed over the guidewire and the guidewire was removed. This sheath was placed with live fluoroscopy. The catheter length was estimated based on the external placement of a hemostat to approximate the level of the joe and the cavoatrial junction. The catheter was then fed into the sheath and slowly the sheath was peeled away as the catheter was inserted fully into the neck. Back in the chest the excess catheter was trimmed and the port was connected to the catheter. The port was tied into the pocket using 2-0 Prolene. Function was then tested using sterile saline on a Montoya needle. It was locked with 2.5 mL of heparinized saline. The port pocket was closed with a deep dermal stitch using a running 3- 0 Vicryl followed by 4-0 Monocryl subcuticular stitch. The 1 cm incision in the neck was closed with a single interrupted subcuticular stitch using 4-0 Monocryl. Dermabond was applied as a dressing. Patient was then aroused from the sedation and returned to CVICU for ongoing recovery where a portable chest x-ray was obtained to confirm port positioning and exclude any pneumothorax. Complications None Admit VTE Documentation VTE Present on Admission: Yes VTE Mechan Device Prophylaxis: SCD's VTE Pharm Prophylaxis ordered?: Yes Procedures Cardiovascular CF Procedures [id number]: [id number] Insert tunneled cv cath
--- NOTE | 2021-03-06 12:10 | RAD_ITS ---
STUDY: X-RAY CHEST REASON FOR EXAM: Female, 65 years old. s/p port placement TECHNIQUE: Single AP portable view of the chest. COMPARISON: Comparison is made with prior study of 09/01/2021. FINDINGS: A right sided port is seen with the tip at the junction of the superior vena cava and right atrium. Stable opacification of the right hemithorax. Diffuse patchy alveolar infiltrates in the left hemithorax. Sternal cerclage wires and vascular clips are present from a prior sternotomy and coronary artery bypass graft procedure (CABG). Normal mediastinum and phu. Normal visualized pulmonary arteries. There is atherosclerotic calcification of the aortic arch with tortuosity. Normal visualized thoracic spine. Normal visualized ribs, clavicles, and shoulders. There is no demonstrated abnormality of the visualized soft tissue structures of the upper abdomen. RAD/Chest 1 View (Portable) IMPRESSION: The tip of the right portacatheter is at the junction of the superior vena cava and right atrium. Stable opacification of the right hemithorax with diffuse alveolar infiltrates in the left hemithorax. Electronically Signed: Raza Keita MD at 12:39 EST ,
[2021-03-06] MEDS: buPROPion (XL) 300 MG TABLET.XL PO (13:57)
[2021-03-06] MEDS: Isosorbide Mononitrate 30 MG Tablet PO (13:57)
[2021-03-06] MEDS: Clopidogrel Bisulfate 75 MG Tablet PO (13:57)
[2021-03-06] MEDS: Sertraline 100 MG Tablet PO (13:57)
[2021-03-06] MEDS: Losartan Potassium 100 MG Tablet PO (13:58)
[2021-03-06] MEDS: guaiFENesin 1,200 MG Tablet 1200 MG PO ×2 (13:58→23:37)
[2021-03-06] MEDS: Carvedilol 6.25 MG Tablet PO ×2 (13:58→23:38)
[2021-03-06] MEDS: Palonosetron HCl 0.25 MG/5 ML Vial IV (15:12)
[2021-03-06] MEDS: Atorvastatin Calcium 10 MG Tablet PO (23:37)
[2021-03-06] MEDS: Enoxaparin 40 MG/0.4 ML Syringe SC (23:38)
[2021-03-07] VITALS (40 sets, daily range): BP systolic 97–159; BP diastolic 58–113; PULSE 58–87; RESP 12–29; TEMP 35.9–36.7; O2SAT 88–96
[2021-03-07 05:45] LABS: Absolute Lymphocyte Count 0.73 X10^3/uL (0.83-4.51); Absolute Neutrophil Count 14.2 X10^3/uL (2.0-7.7); Basophil# 0.02 X10^3/uL; Basophil% 0.1 % (0-1); Hematocrit 47.7 % (37-47); Hemoglobin 14.7 g/dL (12.0-15.0); Lymphocyte # 0.73 X10^3/ul (0.83-4.51); Lymphocyte % 4.5 % (19-41); Mean Corp Hgb Conc 30.8 g/dL (32-36); Mean Corpuscular Hgb 25.1 pg (27.0-32.0); Mean Corpuscular Volume 81.4 fL (81-99); Mean Platelet Vol. 9.8 fl (6.2-12.0); Monocyte# 0.99 X10^3/uL; Monocyte% 6.2 % (0-10); NRBC Flagged by Analyzer 0 % (0-5); Neutrophil # 14.19 X10^3/uL (2.7-7.7); Neutrophil % 88.4 % (47-70); Platelet Count 339 K/mm3 (150-450); RBC Distribution Width CV 14.7 % (11.6-14.6); RBC Distribution Width SD 43.6 fl (35.1-43.9); Red Blood Count 5.86 M/mm3 (4.2-5.4); White Blood Count 16.1 K/mm3 (4.4-11.0)
[2021-03-07 06:05] LABS: Anion Gap 3 (5-15); BUN 18 mg/dL (7-18); BUN/Creat Ratio 34.6 RATIO (10-20); Calcium,Total 10.5 mg/dL (8.5-10.1); Chloride 95 mmol/L (98-107); Creatinine, Serum 0.52 mg/dL (0.55-1.02); EST Glomerular Filtration Rate 126 mL/min (>60); Est Glom Filt Rate - Afr Amer 152 mL/min (>60); Estimated Creatinine Clearance 85.31 ml/min; Glucose 109 mg/dL (74-106); Potassium 4.2 mmol/L (3.5-5.1); Sodium Level 129 mmol/L (136-145)
[2021-03-07] MEDS: Ipratropium/Albuterol Sulfate 3 ML AMPUL.NEB INHALATION ×4 (06:45→18:45)
--- NOTE | 2021-03-07 07:09 | PCM.PN.INT ---
Assessment & Plan Assessment/Plan (1) Acute respiratory failure with hypoxia: PLAN: RECOMMENDATIONS: 1. Wean FiO2 for saturations greater than 90%. 2. Continue empiric broad-spectrum antimicrobials. Okay to discontinue vancomycin. 3. Administer IV Lasix today. 4. Continue chemotherapy per oncology recommendations. 5. Continue bronchodilators and steroids. IMPRESSIONS: 1. Acute on chronic hypoxemic respiratory failure The patient presented to the hospital with worsening dyspnea and hypoxemia in the setting of a new diagnosis of small cell lung cancer. The patient has presumptive COPD along with a extensive tobacco abuse history. The etiology for her clinical decompensation is likely secondary to underlying untreated, progressive lung cancer leading to postobstructive pneumonia. Therefore, it is reasonable to continue empiric antimicrobials as ordered. If the patient's oxygenation status does not improve, can consider thoracentesis. However, I do suspect that the main issue at play here is the fact that she has progressive lung cancer that is causing significant extrinsic compression and subsequent airway collapse. For now, continue heated high flow oxygen and wean FiO2 for saturations greater than 90%. Continue bronchodilators. Following evaluation by oncology and radiation oncology, the decision was made to proceed with inpatient chemotherap. Ultimately, the patient needs to complete her staging work-up which would include a PET scan and MRI brain. 2. Extensive tobacco abuse history Smoking cessation was discussed with the patient. Nicotine replacement therapy can be offered while admitted to the hospital. 3. History of coronary artery disease status post CABG/hypertension/hyperlipidemia/depression/anxiety Complicates care, management, recovery and prognosis. Continue home medications as indicated. This note was generated with [employer] dictation software. It may contain incorrect words, spelling, and punctuation that were not noted in checking the note before signing. Subjective Subjective The patient was seen and examined at the bedside this morning. Events from the last 24 hours have been reviewed. The patient is currently afebrile, hemodynamically stable and maintaining appropriate oxygen saturations on Airvo heated high flow with an FiO2 requirement of 83% and flow rate of 50 L/min. The patient tolerated BiPAP overnight for a couple hours. Yesterday, she did successfully have a port placed and was started on chemotherapy. She remains on antimicrobials and is currently documented to be overall net +6.5 L for the hospital admission. Sodium has improved to 129 with a chloride of 95. Creatinine is within normal limits. Chest x-ray from yesterday demonstrated complete opacification of the right hemithorax with diffuse infiltrate throughout the left. Objective Data Objective Data The patient's most recent lab work, culture data and imaging studies have all been personally reviewed. Rapid coronavirus antigen testing was negative. Blood cultures are pending. Strep and urine Legionella antigens were negative. Sputum culture has demonstrated no growth to date. Vital Signs: Vital Signs Temp Pulse Resp BP Pulse Ox 98.1 F 59 L 16 159/85 H 91 03/07/21 06:00 03/07/21 07:00 03/07/21 07:00 03/07/21 07:00 03/07/21 07:00 Oxygen Flow Rate (L/min) 50 Oxygen Delivery Method Airvo Weight: 125.1 kg Body Mass Index (BMI) 48.9 Intake & Output: Intake and Output for Last 24 Hours 03/05/21 03/06/21 03/07/21 23:59 23:59 23:59 Intake Total 3201.67 / 3201.67 2969.75 / 2969.75 395 / 395 Output Total 850 / 850 350 / 350 Balance 2351.67 / 2351.67 2619.75 / 2619.75 395 / 395 Lab / Micro Data Attestation: I reviewed the patient's lab results. Result Diagrams: 03/07/21 05:00 03/07/21 05:00 Labs: Laboratory Results - last 24 hr 03/06/21 05:56: Sodium 126 L, Potassium 3.7, Chloride 92 L, Carbon Dioxide 27.0, Anion Gap 7, BUN 17, Creatinine 0.63, Estim Creat Clear Calc 70.41, Est GFR (MDRD) Af Amer 122, Est GFR (MDRD) Non-Af 101, BUN/Creatinine Ratio 26.9 H, Glucose 125 H, Calcium 10.3 H 03/07/21 05:00: WBC 16.1 H, RBC 5.86 H, Hgb 14.7, Hct 47.7 H, MCV 81.4, MCH 25.1 L, MCHC 30.8 L, RDW Std Deviation 43.6, RDW Coeff of Melina 14.7 H, Plt Count 339, MPV 9.8, Immature Gran % (Auto) 0.800, Neut % (Auto) 88.4 H, Lymph % (Auto) 4.5 L, [place] % (Auto) 6.2, Eos % (Auto) 0.0, Baso % (Auto) 0.1, Absolute Neuts (auto) 14.2 H, Absolute Lymphs (auto) 0.73 L, Nucleated RBC % 0 03/07/21 05:00: Sodium 129 L, Potassium 4.2, Chloride 95 L, Carbon Dioxide 31.0, Anion Gap 3 L, BUN 18, Creatinine 0.52 L, Estim Creat Clear Calc 85.31, Est GFR (MDRD) Af Amer 152, Est GFR (MDRD) Non-Af 126, BUN/Creatinine Ratio 34.6 H, Glucose 109 H, Calcium 10.5 H Micro: Microbiology 03/04/21 15:00 Sputum, Expectorated/Coughed Gram Stain - Final 03/04/21 15:00 Sputum, Expectorated/Coughed Respiratory Culture - Final Mixed normal respiratory janeen. No Streptococcus pneumoniae, beta-hemolytic Streptococcus or Staphylococcus aureus isolated. 03/04/21 07:00 Blood Culture (Wb) - Left Hand Blood Culture - Preliminary No growth in 48 hours. 03/04/21 11:30 Urine Catheter - Catheter Legionella Antigen - Final 03/04/21 11:30 Urine Catheter - Catheter Streptococcus pneumoniae Antigen (M - Final 03/04/21 07:20 Nasal Secretion SARS-CoV-2 Antigen (Rapid) - Final Radiography Diagnostic Testing: Radiology Impression Chest X-Ray 03/06/21 12:10 IMPRESSION: The tip of the right portacatheter is at the junction of the superior vena cava and right atrium. Stable opacification of the right hemithorax with diffuse alveolar infiltrates in the left hemithorax. Electronically Signed: Raza Keita MD at 12:39 EST , Physical Exam Const alert Constitutional Narrative: Tolerating Airvo heated high flow. General Appearance: cooperative Nutritional Appearance: morbidly obese HEENT normocephalic and head/scalp atraumatic Eyes PERRL, EOMs intact bilaterally and conjunctivae normal Neck supple General: trachea midline Chest inspection of chest normal Resp Auscultation: diminished lung sounds bilateral (R>L) Cardio regular rate and regular rhythm GI normal to inspection, nondistended, normoactive bowel sounds Extremity no clubbing, cyanosis or edema Skin no rashes or lesions noted Neuro CN's II-XII intact bilaterally, moves all extremities and no focal motor deficits Psych cooperative Charges/Coding Visit Charges Inpatient E&M: 44185 Subs Hosp L3
[2021-03-07] MEDS: Furosemide 40 MG/4 ML Vial IV (08:29)
[2021-03-07] MEDS: Isosorbide Mononitrate 30 MG Tablet PO (08:30)
[2021-03-07] MEDS: Carvedilol 6.25 MG Tablet PO ×2 (08:30→21:46)
[2021-03-07] MEDS: Clopidogrel Bisulfate 75 MG Tablet PO (08:31)
[2021-03-07] MEDS: buPROPion (XL) 300 MG TABLET.XL PO (08:31)
[2021-03-07] MEDS: Sertraline 100 MG Tablet PO (08:31)
[2021-03-07] MEDS: guaiFENesin 1,200 MG Tablet 1200 MG PO ×2 (08:31→21:47)
[2021-03-07] MEDS: Losartan Potassium 100 MG Tablet PO (08:31)
[2021-03-07] MEDS: Enoxaparin 40 MG/0.4 ML Syringe SC ×2 (08:32→21:45)
--- NOTE | 2021-03-07 09:26 | PN.HOSP_ITS ---
Subjective Subjective Patient seen and examined. She had no active complaints today. She had her first session of chemotherapy yesterday after she had a port placed. She remains on air Vo. She denies any chest pain, nausea vomiting, fever or chills and admits to a cough which is nonproductive. Review of systems otherwise negative. WBC today 16.1. Sodium is up to 129 today. Objective Data Objective Data Vital Signs: Vital Signs Temp Pulse Resp BP Pulse Ox 98.1 F 74 20 H 135/113 H 93 03/07/21 06:00 03/07/21 08:00 03/07/21 08:00 03/07/21 08:00 03/07/21 08:00 Oxygen Flow Rate (L/min) 50 Oxygen Delivery Method Airvo Weight: 275 lb 12.772 oz Body Mass Index (BMI) 48.9 Intake & Output: Intake and Output for Last 24 Hours 03/05/21 03/06/21 03/07/21 23:59 23:59 23:59 Intake Total 3201.67 / 3201.67 2969.75 / 2969.75 515 / 515 Output Total 850 / 850 350 / 350 Balance 2351.67 / 2351.67 2619.75 / 2619.75 515 / 515 Lab / Micro Data Result Diagrams: 03/07/21 05:00 03/07/21 05:00 Labs: Laboratory Results - last 24 hr 03/07/21 05:00: WBC 16.1 H, RBC 5.86 H, Hgb 14.7, Hct 47.7 H, MCV 81.4, MCH 25.1 L, MCHC 30.8 L, RDW Std Deviation 43.6, RDW Coeff of Melina 14.7 H, Plt Count 339, MPV 9.8, Immature Gran % (Auto) 0.800, Neut % (Auto) 88.4 H, Lymph % (Auto) 4.5 L, [place] % (Auto) 6.2, Eos % (Auto) 0.0, Baso % (Auto) 0.1, Absolute Neuts (auto) 14.2 H, Absolute Lymphs (auto) 0.73 L, Nucleated RBC % 0 03/07/21 05:00: Sodium 129 L, Potassium 4.2, Chloride 95 L, Carbon Dioxide 31.0, Anion Gap 3 L, BUN 18, Creatinine 0.52 L, Estim Creat Clear Calc 85.31, Est GFR (MDRD) Af Amer 152, Est GFR (MDRD) Non-Af 126, BUN/Creatinine Ratio 34.6 H, Glucose 109 H, Calcium 10.5 H 03/07/21 05:00: B-Natriuretic Peptide 240.0 H Micro: Microbiology 03/04/21 15:00 Sputum, Expectorated/Coughed Gram Stain - Final 03/04/21 15:00 Sputum, Expectorated/Coughed Respiratory Culture - Final Mixed normal respiratory janeen. No Streptococcus pneumoniae, beta-hemolytic Streptococcus or Staphylococcus aureus isolated. 03/04/21 07:00 Blood Culture (Wb) - Left Hand Blood Culture - Preliminary No growth in 48 hours. 03/04/21 11:30 Urine Catheter - Catheter Legionella Antigen - Final 03/04/21 11:30 Urine Catheter - Catheter Streptococcus pneumoniae Antigen (M - Final 03/04/21 07:20 Nasal Secretion SARS-CoV-2 Antigen (Rapid) - Final Radiography Diagnostic Testing: Radiology Impression Chest X-Ray 03/06/21 12:10 IMPRESSION: The tip of the right portacatheter is at the junction of the superior vena cava and right atrium. Stable opacification of the right hemithorax with diffuse alveolar infiltrates in the left hemithorax. Electronically Signed: Raza Keita MD at 12:39 EST , Physical Exam Const alert, oriented x3 and no apparent distress Constitutional Narrative: Super morbid obesity Exam Limitations: no limitations Nutritional Appearance: morbidly obese HEENT head/scalp atraumatic and moist oral mucous membranes Head and Scalp: normocephalic Eyes PERRL Neck no lymphadenopathy, supple and no JVD Resp Resp Narrative: Still on air Vo. Diminished breath sounds bibasilarly. No wheezes or crackles. Cardio regular rate, regular rhythm, S1 normal heart sound and S2 normal heart sound GI normal to inspection, nondistended, normoactive bowel sounds, soft to palpation, non-tender and non-distended GI Narrative: obese abdomen Extremity normal to inspection, full ROM and no clubbing, cyanosis or edema Peripheral Pulses: Yes pulses 2+ throughout Skin no rashes or lesions noted Skin Narrative: chemo port in place Neuro oriented x3, CN's II-XII intact bilaterally and moves all extremities Sensorium / Orientation: awake and alert Psych affect normal Assessment & Plan Assessment/Plan (1) SIAD (syndrome of inappropriate antidiuresis): (2) Small cell lung cancer, overlapping sites of right lung: (3) Acute respiratory failure with hypoxia: PLAN: #Acute on chronic hypoxic respiratory failure due to post obtructive pneumonia and left thoracentesis from newly diagnosed right small cell lung carcinoma * still on Airvo * biopsy results came out as small cell lung cancer * radiation therapy, pulmonology and oncology on board * On IV vancomycin and zosyn. sputum cultures negative so far * For thoracentesis if no improvement in oxygenation status * starte don IV lasix today also as she is in cumulative positive fluid balance by 6.5L. * CXR yesterday showed complete opacification of hte right hemithorax with diffuse infiltrate throughout the left. * #Newly diagnosed small cell lung cancer * Radiation oncology and oncology on board. * had port placed yesterday, and she had her first session of chemotherapy * for second sesison of chemo today #Hyponatremia: * Sodium is up to 129 today. Due to SIADH from small cell lung cancer * on demeclocycline per oncology * trend sodium * #CAD s/p CABG and stents: On Plavix, statin and Coreg as well as losartan #Hypertension: * On Coreg, losartan and Imdur. * IV hydralazine as needed. * Hydrochlorothiazide discontinued on account of hyponatremia #Hyperlipidemia: On statin #Anxiety: On bupropion. #Type 2 diabetes mellitus: Appears to be diet controlled as she is not on any medication. A1c pending. #History of uterine cancer: * S/p total hysterectomy Follow-up with oncology on outpatient basis. * #Extensive nicotine dependence: Counseled to quit. on nicotine patch DVT prophylaxis: Lovenox Charges/Coding Visit Charges Inpatient E&M: 54438 [facility] Hosp L3
--- NOTE | 2021-03-07 10:00 | CT_ITS ---
STUDY: CT ABDOMEN WITH CONTRAST REASON FOR EXAM: Female, 65 years old. Liver lesion, SCLC. Prior mastectomy for bladder carcinoma. RADIATION DOSAGE (If Supplied By Facility): CTDIvol = ( 15.42 ) mGy, DLP = ( 878.95 ) mGycm TECHNIQUE: Transaxial images were obtained post I.V. administration of IV 100mL [id number]-300, and oral contrast. Sagittal and coronal images were reconstructed. Individualized dose optimization techniques were used for this CT. COMPARISON: None. FINDINGS: Dense consolidation in the right lower lobe with the small to moderate-sized pleural effusion. Patchy airspace disease in the left lower lobe. The visualized portions of the heart are within normal limits. There is a 8.5 mm cyst in the superior anterior aspect of the right lobe of the liver. There is also evidence of a cystic structure measuring 1.7 cm x 0.8 cm in the anterior aspect of the right lower lobe adjacent to the falciform ligament. Normal gallbladder and extrahepatic biliary system. Normal spleen. Normal pancreas. Normal bilateral adrenal glands. Normal right kidney. Normal left kidney. Normal visualized stomach. Normal small intestine. Normal colon. There is non-visualization of the appendix. There is diffuse atherosclerotic calcification of the abdominal aorta, without a demonstrated aneurysm. Normal inferior vena cava. Normal retroperitoneum. Normal abdominal wall. There are mild degenerative changes of the visualized lumbar spine. CT/Abdomen WITH IV Contrast IMPRESSION: Findings suggestive of a cyst in the right lobe of liver as described. Dense consolidation in the right lower lobe with a right pleural effusion with patchy infiltrates in the left lower lobe. Electronically Signed: Raza Keita MD at 10:52 EST ,
--- NOTE | 2021-03-07 11:25 | CASEMGMT ---
Social Work SW met with pt in room to offer support due to recent cancer diagnosis. Pt is willing to talk with SW and discuss feelings surrounding diagnosis. Pt aware that SW remains available for support. With pt permission, phone call to pt Nelson. Nelson is concerned with pt oxygen at home. Pt does have a concentrator at home and portable tanks. inquiring if pt can get a portable tank that is battery operated as the tanks are bulky and hard to manage when pt leaves the home. SW informed that he would need to talk with life agent to get different tanks. understanding. MARCELA Brown
--- NOTE | 2021-03-07 12:16 | CASEMGMT ---
Per Kathy FRANCISCO, palliative was not aware of pt, order placed and palliative screen re-emailed. Deb JETER CM
--- NOTE | 2021-03-07 12:20 | CASEMGMT ---
Social Work Phone call to [facility] to check on referral sent on Thursday. Shannan states they did not receive the referral. Referral emailed to Palliative medicine. MARCELA Brown
--- NOTE | 2021-03-07 15:13 | PN.ONC_ITS ---
Subjective Subjective Constitutional: Reports malaise; Denies fever HEENT: Denies headache Cardiovascular: Reports dyspnea; Denies chest pain Respiratory/Chest: Reports cough, dyspnea and wheezing Gastrointestinal: Denies abdominal pain, diarrhea, nausea or vomiting Genitourinary: Denies difficulty urinating Musculoskeletal: Denies arthralgias, back pain or joint pain Integumentary: Denies lesions, rash or skin ulcer Neurologic: denies abnormal gait, abnormal speech, dizziness, focal weakness, Psychiatric: Anxious Hematologic/Lymphatic: Denies easy bleeding or easy bruising Physical Exam Const alert and oriented x3 Nutritional Appearance: obese morbidly obese HEENT moist oral mucous membranes Head and Scalp: normocephalic Eyes no scleral icterus Neck no lymphadenopathy and no JVD Resp Resp Narrative: Absent breath sounds on the right consistent with a pleural effusion Porte Auscultation: diminished lung sounds bilateral Cardio regular rate and regular rhythm GI soft to palpation and non-tender Extremity Extremity Narrative: Bilateral lower extremities indurated nonpitting edema General Extremity: edema bilateral lower extremity Details: moderate Skin no wounds Lesions: lesion noted Chronic lichenified skin shins Neuro CN's II-XII intact bilaterally, moves all extremities and no focal motor deficits Psych mental status grossly normal Vital Signs Temperature 96.7 F L 03/07/21 12:00 Temperature Source Temporal 03/07/21 12:00 Pulse Rate 63 03/07/21 15:00 Respiratory Rate 23 H 03/07/21 15:00 Respiratory Effort Non-Labored 03/07/21 11:44 Respiratory Depth Normal 03/07/21 11:44 Respiratory Pattern Normal 03/07/21 11:44 Blood Pressure 152/89 H 03/07/21 15:00 Blood Pressure Mean 110 03/07/21 15:00 Blood Pressure Source Monitor 03/07/21 15:00 Blood Pressure Position Sitting 03/07/21 15:00 Blood Pressure Location Left Forearm 03/07/21 15:00 Pulse Ox 95 03/07/21 15:00 Oxygen Delivery Method Airvo 03/07/21 15:00 Oxygen Flow Rate (L/min) 50 03/07/21 15:00 Fraction of Inspired Oxygen (FIO2) 66 03/07/21 15:00 Laboratory Results - last 24 hr 03/07/21 05:00: WBC 16.1 H, RBC 5.86 H, Hgb 14.7, Hct 47.7 H, MCV 81.4, MCH 25.1 L, MCHC 30.8 L, RDW Std Deviation 43.6, RDW Coeff of Melina 14.7 H, Plt Count 339, MPV 9.8, Immature Gran % (Auto) 0.800, Neut % (Auto) 88.4 H, Lymph % (Auto) 4.5 L, [place] % (Auto) 6.2, Eos % (Auto) 0.0, Baso % (Auto) 0.1, Absolute Neuts (auto) 14.2 H, Absolute Lymphs (auto) 0.73 L, Nucleated RBC % 0 03/07/21 05:00: Sodium 129 L, Potassium 4.2, Chloride 95 L, Carbon Dioxide 31.0, Anion Gap 3 L, BUN 18, Creatinine 0.52 L, Estim Creat Clear Calc 85.31, Est GFR (MDRD) Af Amer 152, Est GFR (MDRD) Non-Af 126, BUN/Creatinine Ratio 34.6 H, Glucose 109 H, Calcium 10.5 H 03/07/21 05:00: B-Natriuretic Peptide 240.0 H Diagnostic Data I personally reviewed patient's CT a March 04, [address] abdomen of March 07, 2021 and concur with reported findings Chest CTA 03/04/21 08:23 IMPRESSION: No evidence of pulmonary embolism. Moderate size right pleural effusion with consolidation and volume loss in the right upper and right lower lobes. Right hilar and mediastinal lymphadenopathy. Pulmonary infiltrates in the left hemithorax. Pneumonitis associated with Covid should be ruled out. Electronically Signed: Raza Keita MD at 9:14 EST , Service support , Chest X-Ray 03/06/21 12:10 IMPRESSION: The tip of the right portacatheter is at the junction of the superior vena cava and right atrium. Stable opacification of the right hemithorax with diffuse alveolar infiltrates in the left hemithorax. Electronically Signed: Raza Keita MD at 12:39 EST , Abdomen CT 03/07/21 10:00 IMPRESSION: Findings suggestive of a cyst in the right lobe of liver as described. Dense consolidation in the right lower lobe with a right pleural effusion with patchy infiltrates in the left lower lobe. Electronically Signed: Raza Keita MD at 10:52 EST , Assessment & Plan Assessment/Plan (1) Small cell lung cancer, overlapping sites of right lung: (2) Pleural effusion, right: (3) Liver lesion: (4) Hyponatremia: (5) SIAD (syndrome of inappropriate antidiuresis): PLAN: 65-year-old female, smoker till the diagnosis of cancer, presented with increasing dyspnea, work-up prior to admission including bronchoscopy and biopsy of right hilar mass February 21, 2021 confirming small cell lung cancer. Patient was hospitalized with rapidly increasing dyspnea, hypoxia, opacification of the right hemithorax due to atelectasis and right pleural effusion prior to completion of staging. She has required urgent treatment with systemic therapy to improve her respiratory status before completion of staging. Today is day 2/3 of cycle 1 systemic therapy with carboplatin etoposide. She has tolerated therapy so far well. She will conclude cycle 1 tomorrow with day 3 and start growth factor support as of day 4. 2 liver lesions were visualized on CT abdomen appear to be cysts, patient has hyponatremia secondary to SIADH mild and asymptomatic will defer to the primary team for management. She will be followed up following discharge to complete staging with a PET/CT and brain MRI. Impression and plan as above discussed with patient. Antonio Llamas MD [employer], [facility] Divisions of Medical Oncology & Hematology Department of Internal Medicine [place] [id number] This note was generated using a voice recognition system software. Although it was reviewed by the author prior to finalization, it may still contain incorrect words, spelling, and punctuation that were not noted when reviewing prior to saving. If a clinically significant typo or inaccurately typed phrase is noted, please notify the author.
--- NOTE | 2021-03-07 18:45 | CPS ---
Decreased O2 to 10 LPM
[2021-03-07] MEDS: Sodium Chloride 0.65% 1 SPRAY SPRAY.BTL 2 SPRAY NASAL (21:44)
[2021-03-07] MEDS: Atorvastatin Calcium 10 MG Tablet PO (21:47)
[2021-03-08] VITALS (32 sets, daily range): BP systolic 119–182; BP diastolic 63–131; PULSE 65–86; RESP 12–26; TEMP 36.1–36.8; O2SAT 63–98
[2021-03-08 04:09] LABS: Absolute Lymphocyte Count 0.75 X10^3/uL (0.83-4.51); Basophil# 0.01 X10^3/uL; Basophil% 0.1 % (0-1); Eosinophil# 0.01 X10^3/uL; Eosinophils% 0.1 % (0-5); Hemoglobin 14.7 g/dL (12.0-15.0); Lymphocyte # 0.75 X10^3/ul (0.83-4.51); Lymphocyte % 6.6 % (19-41); Mean Corp Hgb Conc 31.3 g/dL (32-36); Mean Corpuscular Hgb 25.4 pg (27.0-32.0); Mean Corpuscular Volume 81.3 fL (81-99); Mean Platelet Vol. 9.3 fl (6.2-12.0); Monocyte% 4.4 % (0-10); NRBC Flagged by Analyzer 0 % (0-5); Neutrophil # 9.99 X10^3/uL (2.7-7.7); Platelet Count 309 K/mm3 (150-450); Red Blood Count 5.78 M/mm3 (4.2-5.4); White Blood Count 11.4 K/mm3 (4.4-11.0)
[2021-03-08 04:34] LABS: Anion Gap 3 (5-15); BUN 23 mg/dL (7-18); BUN/Creat Ratio 30.8 RATIO (10-20); Chloride 96 mmol/L (98-107); Creatinine, Serum 0.75 mg/dL (0.55-1.02); EST Glomerular Filtration Rate 83 mL/min (>60); Est Glom Filt Rate - Afr Amer 100 mL/min (>60); Estimated Creatinine Clearance 59.15 ml/min; Glucose 115 mg/dL (74-106); Potassium 4.1 mmol/L (3.5-5.1); Sodium Level 133 mmol/L (136-145)
--- NOTE | 2021-03-08 05:42 | PN.CC_ITS ---
Assessment & Plan Assessment/Plan (1) Acute respiratory failure with hypoxia: PLAN: RECOMMENDATIONS: 1. Wean FiO2 for saturations greater than 90%. 2. Continue empiric broad-spectrum antimicrobials to complete 7-day treatment course. 3. Re-dose IV Lasix today. 4. Continue chemotherapy per oncology recommendations. 5. Continue bronchodilators and steroids. IMPRESSIONS: 1. Acute on chronic hypoxemic respiratory failure The patient presented to the hospital with worsening dyspnea and hypoxemia in the setting of a new diagnosis of small cell lung cancer. The patient has presumptive COPD along with a extensive tobacco abuse history. The etiology for her clinical decompensation is likely secondary to underlying untreated, progr essive lung cancer leading to postobstructive pneumonia. Therefore, it is reasonable to continue empiric antimicrobials as ordered. I do suspect that the main issue at play here is the fact that she has progressive lung cancer that is causing significant extrinsic compression and subsequent airway collapse. Continue to wean oxygen for saturations greater than 90%. Continue bronchodilators. Following evaluation by oncology and radiation oncology, the decision was made to proceed with inpatient chemotherapy. Ultimately, the patient needs to complete her staging work-up which would include a PET scan and MRI brain. 2. Extensive tobacco abuse history Smoking cessation was discussed with the patient. Nicotine replacement therapy can be offered while admitted to the hospital. 3. History of coronary artery disease status post CABG/hypertension/hy perlipidemia/depression/anxiety Complicates care, management, recovery and prognosis. Continue home medications as indicated. This note was generated with [employer] dictation software. It may contain incorrect words, spelling, and punctuation that were not noted in checking the note before signing. Subjective Subjective The patient was seen and examined at the bedside this morning. Events from the last 24 hours have been reviewed. The patient is currently afebrile and hemodynamically stable. She was able to be weaned to 10 L/min via nasal cannula yesterday and was placed on BiPAP for overnight support. Overall, her oxygenation status appears to be improving, in light of her recent chemotherapy initiation and continued utilization of antimicrobials, bronchodilators and steroids. She is documented to be overall net +6.3 L for the hospitalization. Sodium has improved to 133. Creatinine is within normal limits. Objective Data Objective Data The patient's most recent lab work, culture data and imaging studies have all b een personally reviewed. Rapid coronavirus antigen testing was negative. Blood cultures are pending. Strep and urine Legionella antigens were negative. Sputum culture has demonstrated no growth to date. Vital Signs: Vital Signs Temp Pulse Resp BP Pulse Ox 96.9 F L 69 19 H 136/73 H 95 03/08/21 04:00 03/08/21 04:29 03/08/21 04:29 03/08/21 04:00 03/08/21 04:29 Oxygen Flow Rate (L/min) 10 Oxygen Delivery Method Bi-pap Weight: 125.1 kg Body Mass Index (BMI) 48.9 Intake & Output: Intake and Output for Last 24 Hours 03/06/21 03/07/21 03/08/21 23:59 23:59 23:59 Intake Total 2969.75 / 2969.75 1778 / 1998 340 / 340 Output Total 350 / 350 1450 / 1950 500 / 500 Balance 2619.75 / 2619.75 329 / 49 -160 / -160 Lab / Micro Data Attestation: I reviewed the patient's lab results. Result Diagrams: 03/08/21 04:00 03/08/21 04:00 Labs: Laboratory Results - last 24 hr 03/07/21 05:00: WBC 16.1 H, RBC 5.86 H, Hgb 14.7, Hct 47.7 H, MCV 81.4, MCH 25.1 L, MCHC 30.8 L, RDW Std Deviation 43.6, RDW Coeff of Melina 14.7 H, Plt Count 339, MPV 9.8, Immature Gran % (Auto) 0.800, Neut % (Auto) 88.4 H, Lymph % (Auto) 4.5 L, [place] % (Auto) 6.2, Eos % (Auto) 0.0, Baso % (Auto) 0.1, Absolute Neuts (auto) 14.2 H, Absolute Lymphs (auto) 0.73 L, Nucleated RBC % 0 03/07/21 05:00: Sodium 129 L, Potassium 4.2, Chloride 95 L, Carbon Dioxide 31.0, Anion Gap 3 L, BUN 18, Creatinine 0.52 L, Estim Creat Clear Calc 85.31, Est GFR (MDRD) Af Amer 152, Est GFR (MDRD) Non-Af 126, BUN/Creatinine Ratio 34.6 H, Glucose 109 H, Calcium 10.5 H 03/07/21 05:00: B-Natriuretic Peptide 240.0 H 03/08/21 04:00: WBC 11.4 H, RBC 5.78 H, Hgb 14.7, Hct 47.0, MCV 81.3, MCH 25.4 L , MCHC 31.3 L, RDW Std Deviation 44.0 H, RDW Coeff of Melina 15.0 H, Plt Count 309, MPV 9.3, Immature Gran % (Auto) 0.800, Neut % (Auto) 88.0 H, Lymph % (Auto) 6.6 L, [place] % (Auto) 4.4, Eos % (Auto) 0.1, Baso % (Auto) 0.1, Absolute Neuts (auto) 10.0 H, Absolute Lymphs (auto) 0.75 L, Nucleated RBC % 0 03/08/21 04:00: Sodium 133 L, Potassium 4.1, Chloride 96 L, Carbon Dioxide 34.0 H, Anion Gap 3 L, BUN 23 H, Creatinine 0.75, Estim Creat Clear Calc 59.15, Est GFR (MDRD) Af Amer 100, Est GFR (MDRD) Non-Af 83, BUN/Creatinine Ratio 30.8 H, Glucose 115 H, Calcium 10.0 Micro: Microbiology 03/04/21 15:00 Sputum, Expectorated/Coughed Gram Stain - Final 03/04/21 15:00 Sputum, Expectorated/Coughed Respiratory Culture - Final Mixed normal respiratory janeen. No Streptococcus pneumoniae, beta-hemolytic Streptococcus or Staphylococcus aureus isolated. 03/04/21 07:00 Blood Culture (Wb) - Left Hand Blood Culture - Preliminary No growth in 48 hours. 03/04/21 11:30 Urine Catheter - Catheter Legionella Antigen - Final 03/04/21 11:30 Urine Catheter - Catheter Streptococcus pneumoniae Antigen (M - Final 03/04/21 07:20 Nasal Secretion SARS-CoV-2 Antigen (Rapid) - Final Radiography Diagnostic Testing: Radiology Impression Abdomen CT 03/07/21 10:00 IMPRESSION: Findings suggestive of a cyst in the right lobe of liver as described. Dense consolidation in the right lower lobe with a right pleural effusion with patchy infiltrates in the left lower lobe. Electronically Signed: Raza Keita MD at 10:52 EST , Physical Exam Const alert, oriented x3 and no apparent distress General Appearance: cooperative Nutritional Appearance: morbidly obese HEENT normocephalic and head/scalp atraumatic Eyes PERRL, EOMs intact bilaterally and conjunctivae normal Neck supple General: trachea midline Chest inspection of chest normal Resp Auscultation: diminished lung sounds bilateral (R>L) Cardio regular rate and regular rhythm GI normal to inspection, nondistended, normoactive bowel sounds Extremity no clubbing, cyanosis or edema Skin no rashes or lesions noted Neuro CN's II-XII intact bilaterally, moves all extremities and no focal motor deficits Psych cooperative Charges/Coding Visit Charges Inpatient E&M: 71607 Subs Hosp L2
[2021-03-08] MEDS: Ipratropium/Albuterol Sulfate 3 ML AMPUL.NEB INHALATION ×4 (06:34→19:49)
[2021-03-08] MEDS: Furosemide 40 MG/4 ML Vial IV (07:49)
[2021-03-08] MEDS: 0.9% Saline Lock 10 ML Syringe IV ×4 (07:50→15:40)
[2021-03-08] MEDS: Isosorbide Mononitrate 30 MG Tablet PO (08:14)
[2021-03-08] MEDS: buPROPion (XL) 300 MG TABLET.XL PO (08:14)
[2021-03-08] MEDS: Sertraline 100 MG Tablet PO (08:14)
[2021-03-08] MEDS: Clopidogrel Bisulfate 75 MG Tablet PO (08:14)
[2021-03-08] MEDS: Carvedilol 6.25 MG Tablet PO ×2 (08:14→21:23)
[2021-03-08] MEDS: guaiFENesin 1,200 MG Tablet 1200 MG PO ×2 (08:14→21:24)
[2021-03-08] MEDS: Losartan Potassium 100 MG Tablet PO (08:15)
[2021-03-08] MEDS: Enoxaparin 40 MG/0.4 ML Syringe SC ×2 (08:15→21:23)
--- NOTE | 2021-03-08 09:26 | PN.HOSP_ITS ---
Subjective Subjective Patient seen and examined. She remains on AirVO. She has no active complaints and feels well apart from having a bit of chills overnight. She is due to have chemotherapy again today. Objective Data Objective Data Vital Signs: Vital Signs Temp Pulse Resp BP Pulse Ox 97.4 F L 73 19 H 182/86 H 63 03/08/21 08:00 03/08/21 08:00 03/08/21 08:00 03/08/21 08:00 03/08/21 08:28 Oxygen Flow Rate (L/min) 50 Oxygen Delivery Method Airvo Weight: 283 lb 4.704 oz Body Mass Index (BMI) 48.9 Intake & Output: Intake and Output for Last 24 Hours 03/06/21 03/07/21 03/08/21 23:59 23:59 23:59 Intake Total 2969.75 / 2969.75 1779 / 1998 460 / 460 Output Total 350 / 350 1450 / 1950 500 / 500 Balance 2619.75 / 2619.75 329 / 49 -40 / -40 Lab / Micro Data Result Diagrams: 03/08/21 04:00 03/08/21 04:00 Labs: Laboratory Results - last 24 hr 03/08/21 04:00: WBC 11.4 H, RBC 5.78 H, Hgb 14.7, Hct 47.0, MCV 81.3, MCH 25.4 L , MCHC 31.3 L, RDW Std Deviation 44.0 H, RDW Coeff of Melina 15.0 H, Plt Count 309, MPV 9.3, Immature Gran % (Auto) 0.800, Neut % (Auto) 88.0 H, Lymph % (Auto) 6.6 L, [place] % (Auto) 4.4, Eos % (Auto) 0.1, Baso % (Auto) 0.1, Absolute Neuts (auto) 10.0 H, Absolute Lymphs (auto) 0.75 L, Nucleated RBC % 0 03/08/21 04:00: Sodium 133 L, Potassium 4.1, Chloride 96 L, Carbon Dioxide 34.0 H, Anion Gap 3 L, BUN 23 H, Creatinine 0.75, Estim Creat Clear Calc 59.15, Est GFR (MDRD) Af Amer 100, Est GFR (MDRD) Non-Af 83, BUN/Creatinine Ratio 30.8 H, Glucose 115 H, Calcium 10.0 Micro: Microbiology 03/04/21 15:00 Sputum, Expectorated/Coughed Gram Stain - Final 03/04/21 15:00 Sputum, Expectorated/Coughed Respiratory Culture - Final Mixed normal respiratory janeen. No Streptococcus pneumoniae, beta-hemolytic Streptococcus or Staphylococcus aureus isolated. 03/04/21 07:00 Blood Culture (Wb) - Left Hand Blood Culture - Preliminary No growth in 48 hours. 03/04/21 11:30 Urine Catheter - Catheter Legionella Antigen - Final 03/04/21 11:30 Urine Catheter - Catheter Streptococcus pneumoniae Antigen (M - Final 03/04/21 07:20 Nasal Secretion SARS-CoV-2 Antigen (Rapid) - Final Radiography Diagnostic Testing: Radiology Impression Abdomen CT 03/07/21 10:00 IMPRESSION: Findings suggestive of a cyst in the right lobe of liver as described. Dense consolidation in the right lower lobe with a right pleural effusion with patchy infiltrates in the left lower lobe. Electronically Signed: Raza Keita MD at 10:52 EST , Physical Exam Const alert, oriented x3 and no apparent distress Constitutional Narrative: Super morbid obesity Exam Limitations: no limitations Nutritional Appearance: morbidly obese HEENT head/scalp atraumatic and moist oral mucous membranes Head and Scalp: normocephalic Eyes PERRL Neck no lymphadenopathy, supple and no JVD Resp Resp Narrative: Still on air Vo. Diminished breath sounds bibasilarly. No wheezes or crackles. Cardio regular rate, regular rhythm, S1 normal heart sound and S2 normal heart sound GI normal to inspection, nondistended, normoactive bowel sounds, soft to palpation, non-tender and non-distended GI Narrative: obese abdomen Extremity normal to inspection, full ROM and no clubbing, cyanosis or edema Skin no rashes or lesions noted Skin Narrative: chemo port in place Neuro oriented x3, CN's II-XII intact bilaterally and moves all extremities Sensorium / Orientation: awake and alert Psych affect normal Assessment & Plan Assessment/Plan (1) SIAD (syndrome of inappropriate antidiuresis): (2) Small cell lung cancer, overlapping sites of right lung: (3) Acute respiratory failure with hypoxia: PLAN: #Acute on chronic hypoxic respiratory failure due to post obtructive pneumonia and left thoracentesis from newly diagnosed right small cell lung carcinoma * still on Airvo * radiation therapy, pulmonology and oncology on board * On IV vancomycin and zosyn. sputum cultures negative so far * CXR showed complete opacification of hte right hemithorax with diffuse infiltrate throughout the left. * also on IV dexmethasone * #Newly diagnosed small cell lung cancer * Radiation oncology and oncology on board. * had port placed; has had 2 sessions of chemotherapy. #Hyponatremia: * Sodium is up to 133 today. Due to SIADH from small cell lung cancer * on demeclocycline per oncology * trend sodium * #CAD s/p CABG and stents: On Plavix, statin and Coreg as well as losartan #Hypertension: * On Coreg, losartan and Imdur. * IV hydralazine as needed. * Hydrochlorothiazide discontinued on account of hyponatremia #Hyperlipidemia: On statin #Anxiety: On bupropion. #Type 2 diabetes mellitus: Appears to be diet controlled as she is not on any medication. A1c is 5.8. #History of uterine cancer: * S/p total hysterectomy Follow-up with oncology on outpatient basis. * #Extensive nicotine dependence: Counseled to quit. on nicotine patch DVT prophylaxis: Lovenox Charges/Coding Visit Charges Inpatient E&M: 66627 Subs Hosp L2
--- NOTE | 2021-03-08 10:37 | CON.PCM.PA_ITS ---
Assessment & Plan Assessment/Plan (1) Lung cancer: QUALIFIERS: Laterality: right Lung location: unspecified part of lung Qualified Code(s): C34.91 - Malignant neoplasm of unspecified part of right bronchus or lung (2) Acute respiratory failure with hypoxia: (3) Pneumonia: QUALIFIERS: Laterality: bilateral Lung location: unspecified part of lung Pneumonia type: due to unspecified organism Qualified Code(s): J18.9 - Pneumonia, unspecified organism (4) Depression: (5) Anxiety: (6) Hyponatremia: (7) SIAD (syndrome of inappropriate antidiuresis): (8) Debility: (9) Morbid obesity: PLAN: KETURAH DEGROOT, is a 65 F who was referred to [facility] for symptom management of newly diagnosed small cell lung cancer. She is agreeable to Palliative care. Palliative to schedule follow up to sign consent forms either while inpatient or at discharge. 1) Dyspnea: multifactoral with hx of COPD/ smoking/ pneumonia and Lung CA: Will most likely require continuous oxygen at discharge. Oncology treatments with antibiotics/steroids and bronchodilators appear to be improving respiratory status. Palliative to encourage regular follow up with Pulmonary and oncology. Has not had a cigarette since last Thursday. Will encourage continued smoking cessation. 2) neoplasm related pain: Denies any current pain. Palliative will monitor and prescribe for pain and titrate as needed. Patient understands to have PCP or Oncology initiate pain medication if needed until Palliative initial visit at discharge. 3) Nausea/vomiting: Currently does not have any issues. Would maybe use some Phenergan 12.5 every 6 hours PRN to start. 4) Anxiety and depression: Currently on Sertraline and Bupropion. Has PRN Ativan but has not utilized. May benefit from some additional counseling and support from Palliative services at discharge. 5) Insomnia: Most likely related to dyspnea and stress of new cancer diagnosis. Encouraged to try Ativan dose at bedtime. Palliative can discuss other options if continues at discharge. Encouraged to use SS to help maneuver possible benefits to help with her being unable to work at this time. 6) Constipation: Nursing staff aware and to address inpatient. Will assess if this continues to be an issue at discharge. Thank you for the opportunity to participate in this patient's care, please do not hesitate to contact [facility] Palliative with any further questions or concerns. Palliative direct line is [phone]. Gave patient my contact info, she would like to pursue services at discharge. Palliative to follow up for consent signing. Greater than 50% of F2F visit dedicated to education and counseling of palliative care services, medications, comorbid conditions and potential assistance with management, and plan of care moving forward. Start time: 1000 AM End time: 12:02 PM HPI Consult Data Date of Consult: 03/08/21 HPI Narrative HPI Narrative: KETURAH DEGROOT, is a 65 F who was referred to [facility] Palliative for symptom management of small cell lung cancer. Past medical history listed below. To be noted that she had a mastectomy due to infection from a dog bite, not due to breast cancer. She presented to the [facility] ER on 03/04/21 with worsening dyspnea, chronic cough, without fever and chills that was not improving. She had Covid-19 11/2020. She had a recent evaluation at [facility] for respiratory distress and was diagnosed with right sided lung mass probable for cancer but was to have a follow up with Pulmonary but back at [facility] instead. She was using O2 at 4 liters at the beginning of the month and continued to smoke cigarettes. Work-up in the ED included T 97.9, heart rate 92, BP 153/84, respiratory rate 23, no to be significantly hypoxic with 70% on her home 4 L at home presenting on a nonrebreather noted to be 91% on 15 L initially eventually transition to BiPAP noted to be 92% on 60% FiO2, CBC with the procedure 13.6, and 116, platelet 345 with left shift and lymphopenia, D-dimer 1.83, CMP with sodium 122, chloride 84 otherwise not marked appearing, lactic acid 0.8, magnesium 2.2, Phos 2.5, BNP 100.8, rapid Covid antigen negative, chest x-ray with dense opacification right chest with overlying devices, heterogeneous left-sided airspace disease possibly pulmonary congestion, follow- up CTPA with no evidence of PE, moderate sized right pleural effusion with consolidation volume loss right upper and lower right lower lobes, right hilar mediastinal lymphadenopathy, pulmonary infiltrates left hemithorax. In the ED as noted patient transition to BiPAP, administered IV meropenem and IV vancomycin. She was also suspect of SIADH due to hyponatremia and Na closely monitored with hydration. Patient was to continue BiPAP, duonebs, PRN albuterol, IV Solumedrol with IV antibiotics to Vancomycin and Zosyn. Alternating between BIPAP and AirVo currently.Sodium has increased to 133 today and IV hydration has been stopped since 03/05. Was consulted with Oncology and diagnosed with Small cell lung cancer and had port placed and 2 treatments so far which she has tolerated well. Has a third treatment today. Keturah and her have been 45 years, no children. Reports they are both having trouble with this diagnosis. Pt states she still plans to return home. She states her has a lot of health problems including cellulitis and COPD. Pt does also live w/her sister, she states her sister has mental problems. Patient aware per SW that she may have to discharge somewhere for rehab or get transferred out to a tertiary facility. PCP: Manuel Mortensen, Specialists: Jaylon Atkins, Preferred Pharmacy: [facility], Insurance: Margie Hallman. Lives with ,Nelson Degroot and sister in in a H, no steps to enter home. Seen today in her room in ICU 202. Sitting up in her chair with high flow oxygen. Alert, oriented, but anxious. Reports that breathing is so much better than it had been. Sleeps in the chair and has a history of sleeping in her lift chair at home as well. Unaware of Palliative consult. Palliative services explained in relation to oncology treatment and symptom management. Voices interest and would like to be contacted to sign consents. Denies any cravings for cigarettes. Last cigarette Thursday. Does not want a nicotine patch and thinks she may be able to stop on her own. Has some dizziness while working with PT, but denies any chest or lung pain or palpitations. Denies abdominal pain but reports that she has not had a bowel movement since Thursday. Denies any pain, nausea or vomiting. Reports that breakfast did not taste right this morning, so wasn't sure if related to chemo or post-Covid. According to PT notes, patient can walk 20 feet SBA with rolled walker currently with AirVo. Has not been sleeping well due to brain thinking through all this new stress and information. Reports last night was the first night that she had some sleep. 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 Also notified that was also admitted today on PCU for cellulitis and was talking to him on the phone concluding the visit. [facility] Medical History Abnormal stress test Anxiety state Atherosclerotic heart disease of [place] coronary artery without angina pectoris COPD (chronic obstructive pulmonary disease) Diverticulosis Encephalitis Essential hypertension History of DVT (deep vein thrombosis) History of uterine cancer Morbid obesity Old myocardial infarction Pure hypercholesterolemia Tobacco use disorder Type 2 diabetes mellitus Home Medications sertraline 100 mg tablet 100 mg PO DAILY 07/02/17 [History Last Taken 08/17/18] isosorbide mononitrate 30 mg tablet,extended release 24 hr 30 mg PO QAM #30 tab 07/08/17 [Rx Last Taken 08/18/18] bupropion HCl 300 mg PO DAILY 07/20/18 [History Last Taken 08/18/18] clopidogrel 75 mg PO DAILY 08/18/18 [History Last Taken 08/18/18] simvastatin 20 mg PO QHS 08/18/18 [History Last Taken 08/17/18] hydrochlorothiazide 25 mg PO DAILY 10/31/19 [History Last Taken Unknown] lorazepam 0.5 mg PO BID PRN PRN 10/31/19 [History Last Taken Unknown] losartan 100 mg PO DAILY 10/31/19 [History Last Taken Unknown] carvedilol 6.25 mg PO BID 12/08/20 [History Last Taken Unknown] Allergy/AdvReac Type Severity Reaction Status Date / Time cephalexin [From Keflex] Allergy Severe Rash Verified 03/04/21 06:51 levofloxacin [From Levaquin] Allergy Severe Rash Verified 03/04/21 06:51 niacin Allergy Severe Rash Verified 03/04/21 06:51 Penicillins Allergy Severe Anaphylaxis Verified 03/04/21 06:51 Sulfa (Sulfonamide Allergy Severe Rash Verified 03/04/21 06:51 Antibiotics) citalopram [From Celexa] AdvReac Severe Rash Verified 03/04/21 06:51 Estrogens AdvReac Severe blood clots Verified 03/04/21 06:51 rosuvastatin [From Crestor] AdvReac Severe myalgias Verified 03/04/21 06:51 oral contraceptives AdvReac Severe Unknown Uncoded 03/04/21 06:51 Family History Father CAD (coronary artery disease) Cancer Prostate and Bladder Mother CVA (cerebral vascular accident) Hypertension Surgical History Aortocoronary bypass status (~10/31/11) History of tonsillectomy History of total hysterectomy History of total mastectomy of left breast (~08/2018) History of tubal ligation Social History household members: spouse Smoking Status: Current every day smoker tobacco type: cigarettes quit status: considering quitting alcohol intake: never substance use type: does not use ROS Constitutional Constitutional: Reports difficulty sleeping and fatigue ENT HEENT: Reports dizziness and loss taste/smell; Denies abnormal hearing, epistaxis, headache(s), nasal congestion or nasal discharge Cardiovascular Cardiovascular: Reports dyspnea; Denies chest pain with activity, clubbing, cold extremities or cyanosis Respiratory/Chest Respiratory/Chest: Reports dyspnea on exertion and hoarseness; Denies hemoptysis, nail bed cyanosis or pain with cough Gastrointestinal Gastrointestinal: Reports constipation; Denies abdominal pain, cramping, dyspepsia or dysphagia Genitourinary Genitourinary: Denies anuria, burning urination or difficulty urinating Musculoskeletal Musculoskeletal: Denies arthralgias, back pain or extremity pain Integumentary Integumentary: Reports dry skin; Denies erythema or rash Neurologic Neurologic: Reports dizziness and other Details: reports occasional positional dizziness with PT ; Denies behavior changes, confusion, headache(s) or memory loss Psychiatric Psychiatric: Reports anxiety and depression; Denies behavioral changes, confusion or difficulty concentrating Physical Exam Const alert, oriented x3 and no apparent distress General Appearance: cooperative and comfortable Nutritional Appearance: morbidly obese HEENT normocephalic and head/scalp atraumatic Face and Sinus: other dressing to left chin Mouth: oral and palatal mucosa normal Eyes EOMs intact bilaterally, conjunctivae normal and no scleral icterus Chest Chest: symmetrical chest wall rise Resp normal respiratory effort and no use of accessory muscles Effort and Inspection: able to speak in complete sentences Auscultation: rhonchi throughout and wheezes expiratory wheezes, left upper and right upper Cardio regular rate, regular rhythm, S1 normal heart sound and S2 normal heart sound GI Auscultation: hypoactive bowel sounds Palpation: soft; Negative for tender, guarding or rigid Extremity General Extremity: edema bilateral (nonpitting) lower extremity; Negative for clubbing or cyanosis Skin General Skin Exam: lichenification Neuro CN's II-XII intact bilaterally, moves all extremities and no focal motor deficits Sensorium / Orientation: awake and alert Psych mental status grossly normal, thought process normal, cooperative and affect normal Attitude: calm and engaged Activity / Motor Behavior: appropriate eye contact
[2021-03-08] MEDS: Senna/Docusate Sodium 1 Tablet PO (11:38)
--- NOTE | 2021-03-08 15:28 | PN.ONC_ITS ---
Subjective Subjective Constitutional: Reports malaise; Denies fever HEENT: Denies headache Cardiovascular: Reports dyspnea; Denies chest pain Respiratory/Chest: Reports cough, dyspnea and wheezing Gastrointestinal: Denies abdominal pain, diarrhea, nausea or vomiting, + constipation Genitourinary: Denies difficulty urinating Musculoskeletal: Denies arthralgias, back pain or joint pain Integumentary: Denies lesions, rash or skin ulcer Neurologic: denies abnormal gait, abnormal speech, dizziness, focal weakness, vision changes Psychiatric: Anxious Hematologic/Lymphatic: Denies easy bleeding or easy bruising Physical Exam Const alert and oriented x3 Nutritional Appearance: obese morbidly obese HEENT moist oral mucous membranes Head and Scalp: normocephalic Eyes no scleral icterus Neck no lymphadenopathy and no JVD Resp Resp Narrative: Absent breath sounds on the right consistent with a pleural effusion Porte Auscultation: diminished lung sounds bilateral Cardio regular rate and regular rhythm GI soft to palpation and non-tender Extremity Extremity Narrative: Bilateral lower extremities indurated nonpitting edema General Extremity: edema bilateral lower extremity Details: moderate Skin no wounds Lesions: lesion noted Neuro CN's II-XII intact bilaterally, moves all extremities and no focal motor deficits Psych mental status grossly normal Vital Signs Temperature 98.2 F 03/08/21 14:00 Temperature Source Temporal 03/08/21 14:00 Pulse Rate 74 03/08/21 15:03 Respiratory Rate 20 H 03/08/21 14:00 Respiratory Effort Non-Labored 03/08/21 13:00 Respiratory Depth Normal 03/08/21 13:00 Respiratory Pattern Normal 03/08/21 13:00 Blood Pressure 133/86 H 03/08/21 14:00 Blood Pressure Mean 101 03/08/21 14:00 Blood Pressure Source Monitor 03/08/21 14:00 Blood Pressure Position Sitting 03/08/21 14:00 Blood Pressure Location Left Forearm 03/08/21 14:00 Pulse Ox 95 03/08/21 14:00 Oxygen Delivery Method Nasal Cannula 03/08/21 14:00 Oxygen Flow Rate (L/min) 10 03/08/21 14:00 Fraction of Inspired Oxygen (FIO2) 50 03/08/21 08:28 Laboratory Results - last 24 hr 03/08/21 04:00: WBC 11.4 H, RBC 5.78 H, Hgb 14.7, Hct 47.0, MCV 81.3, MCH 25.4 L , MCHC 31.3 L, RDW Std Deviation 44.0 H, RDW Coeff of Melina 15.0 H, Plt Count 309, MPV 9.3, Immature Gran % (Auto) 0.800, Neut % (Auto) 88.0 H, Lymph % (Auto) 6.6 L, [place] % (Auto) 4.4, Eos % (Auto) 0.1, Baso % (Auto) 0.1, Absolute Neuts (auto) 10.0 H, Absolute Lymphs (auto) 0.75 L, Nucleated RBC % 0 03/08/21 04:00: Sodium 133 L, Potassium 4.1, Chloride 96 L, Carbon Dioxide 34.0 H, Anion Gap 3 L, BUN 23 H, Creatinine 0.75, Estim Creat Clear Calc 59.15, Est GFR (MDRD) Af Amer 100, Est GFR (MDRD) Non-Af 83, BUN/Creatinine Ratio 30.8 H, Glucose 115 H, Calcium 10.0 Diagnostic Data Chest CTA 03/04/21 08:23 IMPRESSION: No evidence of pulmonary embolism. Moderate size right pleural effusion with consolidation and volume loss in the right upper and right lower lobes. Right hilar and mediastinal lymphadenopathy. Pulmonary infiltrates in the left hemithorax. Pneumonitis associated with Covid should be ruled out. Electronically Signed: Raza Keita MD at 9:14 EST , Service support , Chest X-Ray 03/06/21 12:10 IMPRESSION: The tip of the right portacatheter is at the junction of the superior vena cava and right atrium. Stable opacification of the right hemithorax with diffuse alveolar infiltrates in the left hemithorax. Electronically Signed: Raza Keita MD at 12:39 EST , Abdomen CT 03/07/21 10:00 IMPRESSION: Findings suggestive of a cyst in the right lobe of liver as described. Dense consolidation in the right lower lobe with a right pleural effusion with patchy infiltrates in the left lower lobe. Electronically Signed: Raza Keita MD at 10:52 EST , Assessment & Plan Assessment/Plan (1) Small cell lung cancer, overlapping sites of right lung: (2) SIAD (syndrome of inappropriate antidiuresis): (3) Liver lesion: (4) Pleural effusion, right: PLAN: Ms. Keturah Degroot is a very pleasant 65-year-old female, smoker till the diagnosis of cancer, presented with increasing dyspnea, work-up prior to admission including bronchoscopy and biopsy of right hilar mass February 21, 2021 confirming small cell lung cancer. Patient was hospitalized with rapidly increasing dyspnea, hypoxia, opacification of the right hemithorax due to atelectasis and right pleural effusion prior to completion of staging. She has required urgent treatment with systemic therapy to improve her respiratory status before completion of staging. Today is day 3 of cycle 1 systemic therapy with carboplatin etoposide. She has tolerated therapy so far well. She will conclude cycle 1 today and start growth factor support as of day 4. 2 liver lesions were visualized on CT abdomen appear to be cysts, patient has hyponatremia secondary to SIADH mild (improving on demeclocycline) and asymptomatic will defer to the primary team for management. Constipation is being addressed by primary team. I educated her on the importance of producing regular BMs as constipation can contribute to nausea. Encouraged increased PO fluid intake and activity as she is able. *If develops chemotherapy induced nausea vomiting, advised use of ondansetron as she rather than Phenergan (less likely to cause drowsiness) as she cares for adult sibling in her home. Prescriptions for ondansetron and EMLA cream were provided to her retail pharmacy. She was counseled on management of CINV and use of EMLA cream prior to port use on 03/14/21 at [facility]. We will complete staging with a PET/CT and brain MRI in the ambulatory setting.
[2021-03-08] MEDS: Atorvastatin Calcium 10 MG Tablet PO (21:23)
[2021-03-08] MEDS: LORazepam 0.5 MG Tablet PO (23:23)
--- NOTE | 2021-03-09 09:53 | PN_ITS ---
DATE OF SERVICE: 03/09/2021 SUBJECTIVE Patient seen and examined. Patient was transferred to the progressive care unit overnight. She is available now and is now down to 9 L of oxygen. She had her third session of chemotherapy yesterday. She denies any fever, chills, nausea vomiting or diarrhea. Review of systems otherwise negative. Pulmonology is on board. Physical Exam Const alert, oriented x3 and no apparent distress Constitutional Narrative: Super morbid obesity Exam Limitations: no limitations Nutritional Appearance: morbidly obese HEENT head/scalp atraumatic and moist oral mucous membranes Head and Scalp: normocephalic Eyes PERRL Neck no lymphadenopathy, supple and no JVD Resp Resp Narrative: now on 9L of oxygen by nasal canula. Diminished breath sounds bibasilarly. No wheezes or crackles. Cardio regular rate, regular rhythm, S1 normal heart sound and S2 normal heart sound GI normal to inspection, nondistended, normoactive bowel sounds, soft to palpation, non-tender and non-distended GI Narrative: obese abdomen Extremity normal to inspection, full ROM and no clubbing, cyanosis or edema Skin no rashes or lesions noted Skin Narrative: chemo port in place Neuro oriented x3, CN's II-XII intact bilaterally and moves all extremities Sensorium / Orientation: awake and alert Psych affect normal Assessment & Plan Assessment/Plan (1) SIAD (syndrome of inappropriate antidiuresis): (2) Small cell lung cancer, overlapping sites of right lung: (3) Acute respiratory failure with hypoxia: #Acute on chronic hypoxic respiratory failure due to post obtructive pneumonia and left thoracentesis from newly diagnosed right small cell lung carcinoma Has had 3 sessions of chemotherapy Now off Airvo and on 9L of oxygen by nasal canula Breathing treatment with bronchodilators Titrate oxygen to maintain sats >90% On iV vancomycin and zosyn. also on IV dexmethasone #Newly diagnosed small cell lung cancer Radiation oncology and oncology on board. had port placed; has had 3 sessions of chemotherapy. #Hyponatremia: BMP still pending today, but sodium has improved markedly. Due to SIADH from small cell lung cancer on demeclocycline per oncology trend sodium #CAD s/p CABG and stents: On Plavix, statin and Coreg as well as losartan #Hypertension: On Coreg, losartan and Imdur. IV hydralazine as needed. Hydrochlorothiazide discontinued on account of hyponatremia #Hyperlipidemia: On statin #Anxiety: On bupropion. #Type 2 diabetes mellitus: Appears to be diet controlled as she is not on any medication. A1c is 5.8. #History of uterine cancer: S/p total hysterectomy. Follow-up with oncology on outpatient basis. #Extensive nicotine dependence: Counseled to quit. on nicotine patch DVT prophylaxis: Lovenox
[2021-03-09] MEDS: buPROPion (XL) 300 MG TABLET.XL PO (09:55)
[2021-03-09] MEDS: Carvedilol 6.25 MG Tablet PO ×2 (09:55→22:50)
[2021-03-09] MEDS: Clopidogrel Bisulfate 75 MG Tablet PO (09:55)
[2021-03-09] MEDS: Losartan Potassium 100 MG Tablet PO (09:55)
[2021-03-09] MEDS: guaiFENesin 1,200 MG Tablet 1200 MG PO ×2 (09:55→22:50)
[2021-03-09] MEDS: Enoxaparin 40 MG/0.4 ML Syringe SC ×2 (09:55→22:50)
[2021-03-09] MEDS: Sertraline 100 MG Tablet PO (09:55)
[2021-03-09] MEDS: Isosorbide Mononitrate 30 MG Tablet PO (09:55)
[2021-03-09] MEDS: Ipratropium/Albuterol Sulfate 3 ML AMPUL.NEB INHALATION (17:30)
[2021-03-09 18:50] LABS: Anion Gap 4 (5-15); BUN 25 mg/dL (7-18); Chloride 96 mmol/L (98-107); Creatinine, Serum 0.68 mg/dL (0.55-1.02); EST Glomerular Filtration Rate 93 mL/min (>60); Est Glom Filt Rate - Afr Amer 113 mL/min (>60); Estimated Creatinine Clearance 65.23 ml/min; Glucose 114 mg/dL (74-106); Potassium 4.3 mmol/L (3.5-5.1); Sodium Level 132 mmol/L (136-145)
[2021-03-09 22:34] LABS: Absolute Lymphocyte Count 1.02 X10^3/uL (0.83-4.51); Absolute Neutrophil Count 9.1 X10^3/uL (2.0-7.7); Eosinophil# 0.01 X10^3/uL; Eosinophils% 0.1 % (0-5); Hematocrit 47.7 % (37-47); Hemoglobin 15.1 g/dL (12.0-15.0); Lymphocyte # 1.02 X10^3/ul (0.83-4.51); Lymphocyte % 9.7 % (19-41); Mean Corp Hgb Conc 31.7 g/dL (32-36); Mean Corpuscular Hgb 25.1 pg (27.0-32.0); Mean Corpuscular Volume 79.2 fL (81-99); Mean Platelet Vol. 9.8 fl (6.2-12.0); Monocyte# 0.26 X10^3/uL; Monocyte% 2.5 % (0-10); NRBC Flagged by Analyzer 0 % (0-5); Neutrophil # 9.07 X10^3/uL (2.7-7.7); Neutrophil % 86.6 % (47-70); Platelet Count 295 K/mm3 (150-450); RBC Distribution Width CV 14.9 % (11.6-14.6); RBC Distribution Width SD 42.6 fl (35.1-43.9); Red Blood Count 6.02 M/mm3 (4.2-5.4); White Blood Count 10.5 K/mm3 (4.4-11.0)
[2021-03-09] MEDS: Atorvastatin Calcium 10 MG Tablet PO (22:50)
[2021-03-10] VITALS (17 sets, daily range): BP systolic 104–134; BP diastolic 56–74; PULSE 64–83; RESP 12–21; TEMP 36.2–36.6; O2SAT 91–98
[2021-03-10 05:51] LABS: Basophil# 0.09 X10^3/uL; Hematocrit 47.4 % (37-47); Hemoglobin 14.4 g/dL (12.0-15.0); Mean Corp Hgb Conc 30.4 g/dL (32-36); Mean Corpuscular Hgb 25.3 pg (27.0-32.0); Mean Corpuscular Volume 83.3 fL (81-99); Mean Platelet Vol. 9.9 fl (6.2-12.0); NRBC Flagged by Analyzer 0 % (0-5); POSITIVE COUNT YES; POSITIVE DIFFERENTIAL YES; POSITIVE MORPHOLOGY YES; Platelet Count 313 K/mm3 (150-450); RBC Distribution Width CV 15.3 % (11.6-14.6); RBC Distribution Width SD 46.3 fl (35.1-43.9); Red Blood Count 5.69 M/mm3 (4.2-5.4)
--- NOTE | 2021-03-10 06:34 | PN.CC_ITS ---
Assessment & Plan Assessment/Plan (1) Acute respiratory failure with hypoxia: PLAN: RECOMMENDATIONS: 1. Continue to wean supplemental oxygen to maintain saturations at or above 90%. 2. Continue empiric broad-spectrum antimicrobials to complete 7-day treatment course. 3. Diuretics as tolerated by hemodynamics and renal function. 4. Continue chemotherapy per oncology recommendations. 5. Continue bronchodilators and steroids. Recommend prednisone taper at discharge. 6. The patient be discharged home when she is able to ambulate on 6 L or less of supplemental oxygen. 7. Complete staging work-up on an outpatient basis per oncology recommendations. 8. Follow-up in the pulmonary medicine clinic 2 weeks post discharge. 9. Will sign off at this time. Please call with any additional questions. IMPRESSIONS: 1. Acute on chronic hypoxemic respiratory failure The patient presented to the hospital with worsening dyspnea and hypoxemia in the setting of a new diagnosis of small cell lung cancer. The patient has presumptive COPD along with a extensive tobacco abuse history. The etiology for her clinical decompensation is likely secondary to underlying untreated, progressive lung cancer leading to postobstructive pneumonia. Therefore, it is reasonable to continue empiric antimicrobials as ordered. I do suspect that the main issue at play here is the fact that she has progressive lung cancer that is causing significant extrinsic compression and subsequent airway collapse. Continue to wean oxygen for saturations greater than 90%. Continue bronchodilators. Following evaluation by oncology and radiation oncology, the decision was made to proceed with inpatient chemotherapy. Ultimately, the patient needs to complete her staging work-up which would include a PET scan and MRI brain. The patient's oxygenation status appears to be improving with time. She can be discharged home when she is able to ambulate on 6 L/min or less of supplemental oxygen. I would recommend that she follow-up in the pulmonary medicine clinic post discharge. 2. Extensive tobacco abuse history Smoking cessation was discussed with the patient. Nicotine replacement therapy can be offered while admitted to the hospital. 3. History of coronary artery disease status post CABG/hypertension/hyperlipidemia/depression/anxiety Complicates care, management, recovery and prognosis. Continue home medications as indicated. This note was generated with [employer]els[employer] software. It may contain incorrect words, spelling, and punctuation that were not noted in checking the note before signing. Subjective Subjective The patient was seen and examined at the bedside this morning. Events from the last 24 hours have been reviewed. The patient is currently afebrile and hemodynamically stable. She is maintaining appropriate oxygen saturations on 5 L/min via nasal cannula. Her oxygenation status continues to improve, in light of her chemotherapy initiation and continued utilization of antimicrobials, bronchodilators and steroids. She is documented to be overall net +5.2 L for the hospitalization. Objective Data Objective Data The patient's most recent lab work, culture data and imaging studies have all been personally reviewed. Rapid coronavirus antigen testing was negative. Blood cultures are pending. Strep and urine Legionella antigens were negative. Sputum culture has demonstrated no growth to date. Vital Signs: Vital Signs Temp Pulse Resp BP Pulse Ox 97.9 F 77 18 133/66 H 94 03/10/21 06:00 03/10/21 06:00 03/10/21 06:00 03/10/21 06:00 03/10/21 06:00 Oxygen Flow Rate (L/min) 5 Oxygen Delivery Method Nasal Cannula Weight: 128.8 kg Body Mass Index (BMI) 48.9 Intake & Output: Intake and Output for Last 24 Hours 03/08/21 03/09/21 03/10/21 23:59 23:59 23:59 Intake Total 1484 / 1484 120 / 120 Output Total 2850 / 2850 Balance -1366 / -1366 120 / 120 Lab / Micro Data Attestation: I reviewed the patient's lab results. Result Diagrams: 03/10/21 05:05 03/10/21 05:05 Labs: Laboratory Results - last 24 hr 03/09/21 05:14: WBC 10.5, RBC 6.02 H, Hgb 15.1 H, Hct 47.7 H, MCV 79.2 L, MCH 25.1 L, MCHC 31.7 L, RDW Std Deviation 42.6, RDW Coeff of Melina 14.9 H, Plt Count 295, MPV 9.8, Immature Gran % (Auto) 1.100 H, Neut % (Auto) 86.6 H, Lymph % (Auto) 9.7 L, [place] % (Auto) 2.5, Eos % (Auto) 0.1, Baso % (Auto) 0.0, Absolute Neuts (auto) 9.1 H, Absolute Lymphs (auto) 1.02, Nucleated RBC % 0 03/09/21 05:14: Sodium 132 L, Potassium 4.3, Chloride 96 L, Carbon Dioxide 32.0, Anion Gap 4 L, BUN 25 H, Creatinine 0.68, Estim Creat Clear Calc 65.23, Est GFR (MDRD) Af Amer 113, Est GFR (MDRD) Non-Af 93, BUN/Creatinine Ratio 37.0 H, Glucose 114 H, Calcium 10.0 Micro: Microbiology 03/04/21 15:00 Sputum, Expectorated/Coughed Gram Stain - Final 03/04/21 15:00 Sputum, Expectorated/Coughed Respiratory Culture - Final Mixed normal respiratory janeen. No Streptococcus pneumoniae, beta-hemolytic Streptococcus or Staphylococcus aureus isolated. 03/04/21 07:00 Blood Culture (Wb) - Left Hand Blood Culture - Preliminary No growth in 48 hours. 03/04/21 11:30 Urine Catheter - Catheter Legionella Antigen - Final 03/04/21 11:30 Urine Catheter - Catheter Streptococcus pneumoniae Antigen (M - Final 03/04/21 07:20 Nasal Secretion SARS-CoV-2 Antigen (Rapid) - Final Physical Exam Const alert, oriented x3 and no apparent distress General Appearance: cooperative Nutritional Appearance: morbidly obese HEENT normocephalic and head/scalp atraumatic Eyes PERRL, EOMs intact bilaterally and conjunctivae normal Neck supple General: trachea midline Chest inspection of chest normal Resp Auscultation: diminished lung sounds bilateral (R>L) Cardio regular rate and regular rhythm GI normal to inspection, nondistended, normoactive bowel sounds Extremity no clubbing, cyanosis or edema Skin no rashes or lesions noted Neuro CN's II-XII intact bilaterally, moves all extremities and no focal motor deficits Psych cooperative Charges/Coding Visit Charges Inpatient E&M: 88629 Subs Hosp L2
[2021-03-10 06:58] LABS: Eosinophil# 9.67 X10^3/uL
[2021-03-10 06:59] LABS: Differential Indicated SCAN CRITERIA MET; White Blood Count 40.6 K/mm3 (4.4-11.0)
[2021-03-10] MEDS: Ipratropium/Albuterol Sulfate 3 ML AMPUL.NEB INHALATION ×4 (07:28→20:49)
[2021-03-10 07:39] LABS: Lymphocyte 1 % (19-41); Neutrophil-Segmented 99 % (47-70)
[2021-03-10 07:40] LABS: Absolute Neutrophil Count 40.1 X10^3/uL (2.0-7.7); Platelet Estimate ADEQUATE (ADEQ); Red Cell Morphology NORM C+C NORMAL (NORM C&C)
[2021-03-10 07:43] LABS: Anion Gap 15 (5-15); BUN 17 mg/dL (7-18); BUN/Creat Ratio 32.8 RATIO (10-20); Calcium,Total 5.7 mg/dL (8.5-10.1); Chloride 98 mmol/L (98-107); Creatinine, Serum 0.52 mg/dL (0.55-1.02); EST Glomerular Filtration Rate 126 mL/min (>60); Est Glom Filt Rate - Afr Amer 153 mL/min (>60); Estimated Creatinine Clearance 85.31 ml/min; Glucose 63 mg/dL (74-106); Potassium 5.1 mmol/L (3.5-5.1); Sodium Level 126 mmol/L (136-145)
[2021-03-10 08:35] LABS: Absolute Lymphocyte Count 1.68 X10^3/uL (0.83-4.51); Absolute Neutrophil Count 47.5 X10^3/uL (2.0-7.7); Basophil# 0.14 X10^3/uL; Basophil% 0.3 % (0-1); Eosinophil# 0.01 X10^3/uL; Hematocrit 47.1 % (37-47); Hemoglobin 14.8 g/dL (12.0-15.0); Lymphocyte # 1.68 X10^3/ul (0.83-4.51); Lymphocyte % 3.3 % (19-41); Mean Corp Hgb Conc 31.4 g/dL (32-36); Mean Corpuscular Hgb 25.3 pg (27.0-32.0); Mean Corpuscular Volume 80.7 fL (81-99); Mean Platelet Vol. 9.5 fl (6.2-12.0); Monocyte# 0.22 X10^3/uL; Monocyte% 0.4 % (0-10); NRBC Flagged by Analyzer 0 % (0-5); Neutrophil # 47.52 X10^3/uL (2.7-7.7); Neutrophil % 94.3 % (47-70); POSITIVE COUNT YES; POSITIVE DIFFERENTIAL YES; Platelet Count 319 K/mm3 (150-450); RBC Distribution Width CV 15.3 % (11.6-14.6); RBC Distribution Width SD 44.2 fl (35.1-43.9); Red Blood Count 5.84 M/mm3 (4.2-5.4); White Blood Count 50.4 K/mm3 (4.4-11.0)
[2021-03-10 08:39] LABS: Differential Indicated SCAN CRITERIA MET
[2021-03-10] MEDS: guaiFENesin 1,200 MG Tablet 1200 MG PO ×2 (09:26→21:24)
[2021-03-10] MEDS: Sertraline 100 MG Tablet PO (09:26)
[2021-03-10] MEDS: buPROPion (XL) 300 MG TABLET.XL PO (09:26)
[2021-03-10] MEDS: Clopidogrel Bisulfate 75 MG Tablet PO (09:26)
[2021-03-10] MEDS: Isosorbide Mononitrate 30 MG Tablet PO (09:27)
[2021-03-10] MEDS: Enoxaparin 40 MG/0.4 ML Syringe SC ×2 (09:27→21:24)
[2021-03-10] MEDS: Losartan Potassium 100 MG Tablet PO (09:27)
[2021-03-10] MEDS: Carvedilol 6.25 MG Tablet PO ×2 (09:27→21:24)
[2021-03-10] MEDS: TBO-FILGRASTIM 480 MCG/0.8 ML ML SC (09:40)
--- NOTE | 2021-03-10 10:00 | PN.HOSP_ITS ---
Subjective Subjective Patient seen and examined. She had no complaints today and said she felt much better. She was down to 5L of oxygen today. She had no complaints now and felt well. Vitals were stable. Her wbc was elevated at 40, and on rpeat CBC, was up to 50, with a elevated neutrophils. Patient started on meropenem this morning. Objective Data Objective Data Vital Signs: Vital Signs Temp Pulse Resp BP Pulse Ox 97.2 F L 76 18 134/74 H 94 03/10/21 09:25 03/10/21 09:25 03/10/21 09:25 03/10/21 09:25 03/10/21 09:25 Oxygen Flow Rate (L/min) 4 Oxygen Delivery Method Nasal Cannula Weight: 283 lb 15.286 oz Body Mass Index (BMI) 48.9 Intake & Output: Intake and Output for Last 24 Hours 03/08/21 03/09/21 03/10/21 23:59 23:59 23:59 Intake Total 1484 / 1484 120 / 120 17.6 / 17.6 Output Total 2850 / 2850 Balance -1366 / -1366 120 / 120 17.6 / 17.6 Lab / Micro Data Result Diagrams: 03/10/21 08:22 03/10/21 05:05 Labs: Laboratory Results - last 24 hr 03/09/21 05:14: WBC 10.5, RBC 6.02 H, Hgb 15.1 H, Hct 47.7 H, MCV 79.2 L, MCH 25.1 L, MCHC 31.7 L, RDW Std Deviation 42.6, RDW Coeff of Melina 14.9 H, Plt Count 295, MPV 9.8, Immature Gran % (Auto) 1.100 H, Neut % (Auto) 86.6 H, Lymph % (Auto) 9.7 L, Lucas % (Auto) 2.5, Eos % (Auto) 0.1, Baso % (Auto) 0.0, Absolute Neuts (auto) 9.1 H, Absolute Lymphs (auto) 1.02, Nucleated RBC % 0 03/09/21 05:14: Sodium 132 L, Potassium 4.3, Chloride 96 L, Carbon Dioxide 32.0, Anion Gap 4 L, BUN 25 H, Creatinine 0.68, Estim Creat Clear Calc 65.23, Est GFR (MDRD) Af Amer 113, Est GFR (MDRD) Non-Af 93, BUN/Creatinine Ratio 37.0 H, Glucose 114 H, Calcium 10.0 03/10/21 05:05: WBC 40.6 H*, RBC 5.69 H, Hgb 14.4, Hct 47.4 H, MCV 83.3 D, MCH 25.3 L, MCHC 30.4 L, RDW Std Deviation 46.3 H, RDW Coeff of Melina 15.3 H, Plt Count 313, MPV 9.9, Immature Gran % (Auto) 2.000 H, Neut % (Auto) 71.7 H, Lymph % (Auto) 2.1 L, Lucas % (Auto) 0.2, Eos % (Auto) 23.8 H, Baso % (Auto) 0.2, Absolute Neuts (auto) 40.1 H, Absolute Lymphs (auto) 0.40 L, Total Counted 100, Neutrophils % (Manual) 99 H, Lymphocytes % (Manual) 1 L, Nucleated RBC % 0, Diff Path Review June, Platelet Estimate ADEQUATE, RBC Morphology NORM C+C 03/10/21 05:05: Sodium 126 L, Potassium 5.1, Chloride 98, Carbon Dioxide 13.0 L, Anion Gap 15, BUN 17, Creatinine 0.52 L, Estim Creat Clear Calc 85.31, Est GFR (MDRD) Af Amer 153, Est GFR (MDRD) Non-Af 126, BUN/Creatinine Ratio 32.8 H, Glucose 63 L, Calcium 5.7 L* 03/10/21 08:22: WBC 50.4 H*, RBC 5.84 H, Hgb 14.8, Hct 47.1 H, MCV 80.7 L, MCH 25.3 L, MCHC 31.4 L, RDW Std Deviation 44.2 H, RDW Coeff of Melina 15.3 H, Plt Count 319, MPV 9.5, Immature Gran % (Auto) 1.700 H, Neut % (Auto) 94.3 H, Lymph % (Auto) 3.3 L, Lucas % (Auto) 0.4, Eos % (Auto) 0.0, Baso % (Auto) 0.3, Absolute Neuts (auto) 47.5 H, Absolute Lymphs (auto) 1.68, Nucleated RBC % 0 Micro: Microbiology 03/04/21 15:00 Sputum, Expectorated/Coughed Gram Stain - Final 03/04/21 15:00 Sputum, Expectorated/Coughed Respiratory Culture - Final Mixed normal respiratory janeen. No Streptococcus pneumoniae, beta-hemolytic Streptococcus or Staphylococcus aureus isolated. 03/04/21 07:00 Blood Culture (Wb) - Left Hand Blood Culture - Preliminary No growth in 48 hours. 03/04/21 11:30 Urine Catheter - Catheter Legionella Antigen - Final 03/04/21 11:30 Urine Catheter - Catheter Streptococcus pneumoniae Antigen (M - Final 03/04/21 07:20 Nasal Secretion SARS-CoV-2 Antigen (Rapid) - Final Physical Exam Const alert, oriented x3 and no apparent distress Constitutional Narrative: Super morbid obesity Exam Limitations: no limitations Nutritional Appearance: morbidly obese HEENT head/scalp atraumatic and moist oral mucous membranes Head and Scalp: normocephalic Eyes PERRL Neck no lymphadenopathy, supple and no JVD Resp Resp Narrative: Diminished breath sounds bibasilarly. No wheezes or crackles. Now on 5L of oxygen by nasal canula Cardio regular rate, regular rhythm, S1 normal heart sound and S2 normal heart sound GI normal to inspection, nondistended, normoactive bowel sounds, soft to palpation, non-tender and non-distended GI Narrative: obese abdomen Extremity normal to inspection, full ROM and no clubbing, cyanosis or edema Skin no rashes or lesions noted Skin Narrative: chemo port in place Neuro oriented x3, CN's II-XII intact bilaterally and moves all extremities Sensorium / Orientation: awake and alert Psych affect normal Assessment & Plan Assessment/Plan (1) SIAD (syndrome of inappropriate antidiuresis): (2) Small cell lung cancer, overlapping sites of right lung: (3) Acute respiratory failure with hypoxia: PLAN: #Acute on chronic hypoxic respiratory failure due to post obtructive pneumonia and left thoracentesis from newly diagnosed right small cell lung carcinoma * now on 5L of oxygen by nasal canula * has had 3 sessions of chemotherapy * radiation therapy, pulmonology and oncology on board * antibiotics broadened to meropenem * also on IV dexmethasone * #Newly diagnosed small cell lung cancer * Radiation oncology and oncology on board. * had port placed; has had 3 sessions of chemotherapy. * wbc up to 50 today. Steroids likely contributing to this. * pulmonology also on board. #Leucocytosis * WBC is up to 50 today. This is mainly neutrophil predominance. * blood cultures negative so far. She has been on steroids, so this is likely contributing. * on IV meropenem. WIll trend wbc. * #Hyponatremia: * Sodium is down to 126 today. Due to SIADH from small cell lung cancer * on demeclocycline per oncology * trend sodium. Restrict fluid to 1500cc daily. * #CAD s/p CABG and stents: On Plavix, statin and Coreg as well as losartan #Hypertension: * On Coreg, losartan and Imdur. * IV hydralazine as needed. * Hydrochlorothiazide discontinued on account of hyponatremia #Hyperlipidemia: On statin #Anxiety: On bupropion. #Type 2 diabetes mellitus: Appears to be diet controlled as she is not on any medication. A1c is 5.8. #History of uterine cancer: * S/p total hysterectomy Follow-up with oncology on outpatient basis. * #Extensive nicotine dependence: Counseled to quit. on nicotine patch DVT prophylaxis: Lovenox Charges/Coding Visit Charges Inpatient E&M: 13718 Subs Hosp L3
[2021-03-10 10:01] LABS: Scan Smear per Review Criteria MANUAL DIFF
[2021-03-10] MEDS: Atorvastatin Calcium 10 MG Tablet PO (21:24)
[2021-03-11] VITALS (17 sets, daily range): BP systolic 104–150; BP diastolic 42–67; PULSE 65–87; RESP 12–20; TEMP 35.8–36.6; O2SAT 93–98
--- NOTE | 2021-03-11 01:48 | CPS ---
RN notified RT that patient wanted to come off BIPAP. Patient back on her 4L NC
[2021-03-11 05:54] LABS: Absolute Lymphocyte Count 2.28 X10^3/uL (0.83-4.51); Absolute Neutrophil Count 31.3 X10^3/uL (2.0-7.7); Basophil# 0.11 X10^3/uL; Basophil% 0.3 % (0-1); Eosinophil# 0.22 X10^3/uL; Eosinophils% 0.6 % (0-5); Hematocrit 46.9 % (37-47); Hemoglobin 14.1 g/dL (12.0-15.0); Lymphocyte # 2.28 X10^3/ul (0.83-4.51); Lymphocyte % 6.4 % (19-41); Mean Corp Hgb Conc 30.1 g/dL (32-36); Mean Corpuscular Volume 83.2 fL (81-99); Mean Platelet Vol. 9.8 fl (6.2-12.0); Monocyte# 0.14 X10^3/uL; Monocyte% 0.4 % (0-10); NRBC Flagged by Analyzer 0 % (0-5); Neutrophil # 31.25 X10^3/uL (2.7-7.7); POSITIVE COUNT YES; POSITIVE DIFFERENTIAL YES; Platelet Count 282 K/mm3 (150-450); RBC Distribution Width CV 15.2 % (11.6-14.6); RBC Distribution Width SD 46.2 fl (35.1-43.9); Red Blood Count 5.64 M/mm3 (4.2-5.4); White Blood Count 35.5 K/mm3 (4.4-11.0)
[2021-03-11 06:08] LABS: Differential Indicated SCAN CRITERIA MET
[2021-03-11 06:24] LABS: Anion Gap 3 (5-15); BUN 23 mg/dL (7-18); BUN/Creat Ratio 43.6 RATIO (10-20); Calcium,Total 9.7 mg/dL (8.5-10.1); Chloride 96 mmol/L (98-107); Creatinine, Serum 0.53 mg/dL (0.55-1.02); EST Glomerular Filtration Rate 124 mL/min (>60); Est Glom Filt Rate - Afr Amer 149 mL/min (>60); Glucose 75 mg/dL (74-106); Potassium 4.5 mmol/L (3.5-5.1); Sodium Level 130 mmol/L (136-145)
[2021-03-11 06:33] LABS: Anisocytosis 1+
[2021-03-11] MEDS: Ipratropium/Albuterol Sulfate 3 ML AMPUL.NEB INHALATION ×4 (07:22→19:35)
[2021-03-11] MEDS: Enoxaparin 40 MG/0.4 ML Syringe SC ×2 (08:54→20:57)
[2021-03-11] MEDS: guaiFENesin 1,200 MG Tablet 1200 MG PO ×2 (08:55→20:56)
[2021-03-11] MEDS: Carvedilol 6.25 MG Tablet PO ×2 (08:55→20:57)
[2021-03-11] MEDS: Clopidogrel Bisulfate 75 MG Tablet PO (08:55)
[2021-03-11] MEDS: predniSONE 20 MG Tablet 40 MG PO (08:55)
[2021-03-11] MEDS: Losartan Potassium 100 MG Tablet PO (08:56)
[2021-03-11] MEDS: Sertraline 100 MG Tablet PO (08:56)
[2021-03-11] MEDS: TBO-FILGRASTIM 480 MCG/0.8 ML ML SC (10:29)
[2021-03-11] MEDS: Isosorbide Mononitrate 30 MG Tablet PO (10:29)
[2021-03-11] MEDS: buPROPion (XL) 300 MG TABLET.XL PO (12:07)
[2021-03-11 12:37] LABS: Pathologist Review Reviewed
[2021-03-11 12:37] LABS: Pathologist Review Reviewed
[2021-03-11 12:37] LABS: Pathologist Review Reviewed
--- NOTE | 2021-03-11 13:41 | CASEMGMT ---
Social Work SW assisted pt in completing LW/POA forms. Pt listed her Nelson as POA and her sister in law Betty Schroeder as the alternate. SW gave pt the originals and copies, and copies placed on the chart. [place]
--- NOTE | 2021-03-11 16:47 | PN.HOSP_ITS ---
Subjective Subjective Breathing better overall. Tolerating 4 L nasal cannula. Did not have any issues with dyspnea on exertion when she went to the restroom earlier today. Objective Data Objective Data Vital Signs: Vital Signs Temp Pulse Resp BP Pulse Ox 36.4 C L 80 18 150/66 H 93 03/11/21 15:52 03/11/21 15:52 03/11/21 15:52 03/11/21 15:52 03/11/21 15:52 Oxygen Flow Rate (L/min) 4 Oxygen Delivery Method Nasal Cannula Weight: 128.8 kg Body Mass Index (BMI) 48.9 Intake & Output: Intake and Output for Last 24 Hours 03/09/21 03/10/21 03/11/21 23:59 23:59 23:59 Intake Total 800 / 800 977.6 / 977.6 600 / 600 Output Total 600 / 600 1100 / 1100 500 / 500 Balance 200 / 200 -122.4 / -122.4 100 / 100 Lab / Micro Data Result Diagrams: 03/11/21 05:24 03/11/21 05:24 Labs: Laboratory Results - last 24 hr 03/10/21 05:05: Diff Path Review Reviewed 03/10/21 08:22: Diff Path Review Reviewed 03/11/21 05:24: WBC 35.5 H*, RBC 5.64 H, Hgb 14.1, Hct 46.9, MCV 83.2, MCH 25.0 L, MCHC 30.1 L, RDW Std Deviation 46.2 H, RDW Coeff of Melina 15.2 H, Plt Count 282, MPV 9.8, Immature Gran % (Auto) 4.300 H, Neut % (Auto) 88.0 H, Lymph % (Auto) 6.4 L, [place] % (Auto) 0.4, Eos % (Auto) 0.6, Baso % (Auto) 0.3, Absolute Neuts (auto) 31.3 H, Absolute Lymphs (auto) 2.28, Nucleated RBC % 0, Diff Path Review Reviewed, Anisocytosis 1+ 03/11/21 05:24: Sodium 130 L, Potassium 4.5, Chloride 96 L, Carbon Dioxide 31.0, Anion Gap 3 L, BUN 23 H, Creatinine 0.53 L, Estim Creat Clear Calc 83.70, Est GFR (MDRD) Af Amer 149, Est GFR (MDRD) Non-Af 124, BUN/Creatinine Ratio 43.6 H, Glucose 75, Calcium 9.7 Micro: Microbiology 03/04/21 07:00 Blood Culture (Wb) - Left Hand Blood Culture - Final No growth in 5 days. 03/04/21 15:00 Sputum, Expectorated/Coughed Gram Stain - Final 03/04/21 15:00 Sputum, Expectorated/Coughed Respiratory Culture - Final Mixed normal respiratory janeen. No Streptococcus pneumoniae, beta-hemolytic Streptococcus or Staphylococcus aureus isolated. 03/04/21 11:30 Urine Catheter - Catheter Legionella Antigen - Final 03/04/21 11:30 Urine Catheter - Catheter Streptococcus pneumoniae Antigen (M - Final 03/04/21 07:20 Nasal Secretion SARS-CoV-2 Antigen (Rapid) - Final Physical Exam Const alert and no apparent distress Resp normal respiratory effort, no retractions, no use of accessory muscles and clear to auscultation bilaterally Cardio regular rate, regular rhythm, S1 normal heart sound and S2 normal heart sound GI normal to inspection, nondistended, normoactive bowel sounds, soft to palpation, non-tender and non-distended Extremity normal to inspection Skin no rashes or lesions noted Assessment & Plan Assessment/Plan (1) SIAD (syndrome of inappropriate antidiuresis): (2) Small cell lung cancer, overlapping sites of right lung: (3) Acute respiratory failure with hypoxia: PLAN: 1. Acute on chronic hypoxic respiratory failure * due to post obstructive pneumonia from newly diagnosed right small cell lung carcinoma * now on 4L of oxygen by nasal canula * Continue with meropenem for total of 7 days. 2. SCLC * DW Dr. Llamas: has had 3 sessions of chemotherapy and plan is for her to continue with chemotherapy in 3 weeks. She will need a PET scan as well as a brain MRI and those to be done as outpatient. * radiation therapy, pulmonology and oncology on board * Subjectively feeling better. * continue with Tbo-filgrastim for a total of 10 days. Will need to coordinate with CM and pharmacy about obtaining the medication before she is discharged. 3. Leucocytosis * improved * likely 2/2 growth factor 4. Hyponatremia: * Improved * Due to SIADH from small cell lung cancer * on demeclocycline per oncology * trend sodium. Restrict fluid to 1500cc daily. 5. Chronic issues: * CAD s/p CABG and stents: On Plavix, statin and Coreg as well as losartan * Hypertension: On Coreg, losartan and Imdur. IV hydralazine as needed. Hydrochlorothiazide discontinued on account of hyponatremia * Hyperlipidemia: On statin * Anxiety: On bupropion. * Type 2 diabetes mellitus: Appears to be diet controlled as she is not on any medication. A1c is 5.8. * History of uterine cancer: S/p total hysterectomy Follow-up with oncology on outpatient basis. * Extensive nicotine dependence: Counseled to quit. on nicotine patch DVT prophylaxis: Lovenox Disposition: Monitor patient overnight and if she continues to improve then would anticipate patient being able to be discharged on the first. Charges/Coding Visit Charges Inpatient E&M: 52385 Subs Hosp L2
--- NOTE | 2021-03-11 20:45 | CPS ---
pt was concerned about having a bloody nose, switched NC to a 35% venti mask.
[2021-03-11] MEDS: Atorvastatin Calcium 10 MG Tablet PO (20:57)
[2021-03-12] VITALS (7 sets, daily range): BP systolic 126–137; BP diastolic 53–64; PULSE 69–84; RESP 16–21; TEMP 36.4–36.5; O2SAT 93–96
[2021-03-12 05:04] LABS: Hematocrit 44.7 % (37-47); Hemoglobin 13.9 g/dL (12.0-15.0); Mean Corp Hgb Conc 31.1 g/dL (32-36); Mean Corpuscular Hgb 25.6 pg (27.0-32.0); Mean Corpuscular Volume 82.3 fL (81-99); Mean Platelet Vol. 9.8 fl (6.2-12.0); POSITIVE COUNT YES; POSITIVE DIFFERENTIAL YES; POSITIVE MORPHOLOGY YES; Platelet Count 242 K/mm3 (150-450); RBC Distribution Width CV 15.2 % (11.6-14.6); RBC Distribution Width SD 45.4 fl (35.1-43.9); Red Blood Count 5.43 M/mm3 (4.2-5.4); White Blood Count 38.7 K/mm3 (4.4-11.0)
[2021-03-12 05:07] LABS: Differential Indicated MANUAL DIFF
[2021-03-12 05:33] LABS: Anion Gap 3 (5-15); BUN 20 mg/dL (7-18); BUN/Creat Ratio 39.8 RATIO (10-20); Calcium,Total 9.8 mg/dL (8.5-10.1); Chloride 96 mmol/L (98-107); EST Glomerular Filtration Rate 131 mL/min (>60); Est Glom Filt Rate - Afr Amer 158 mL/min (>60); Estimated Creatinine Clearance 88.72 ml/min; Glucose 80 mg/dL (74-106); Potassium 4.8 mmol/L (3.5-5.1); Sodium Level 129 mmol/L (136-145)
[2021-03-12 05:51] LABS: Neutrophil-Band 1 % (0-5); Neutrophil-Segmented 89 % (47-70); Total Cells Counted 100 (MANUAL DIFF)
[2021-03-12 05:52] LABS: Eosinophil 1 % (0-5); Lymphocyte 8 % (19-41); Monocyte 1 % (0-10); Platelet Estimate ADEQUATE (ADEQ); Red Cell Morphology NORM C+C NORMAL (NORM C&C)
[2021-03-12 05:53] LABS: Absolute Neutrophil Count 34.9 X10^3/uL (2.0-7.7); Neutrophil # 34.85 X10^3/uL (2.7-7.7)
[2021-03-12] MEDS: Ipratropium/Albuterol Sulfate 3 ML AMPUL.NEB INHALATION ×2 (07:02→10:33)
[2021-03-12] MEDS: Clopidogrel Bisulfate 75 MG Tablet PO (08:14)
[2021-03-12] MEDS: guaiFENesin 1,200 MG Tablet 1200 MG PO (08:15)
[2021-03-12] MEDS: buPROPion (XL) 300 MG TABLET.XL PO (08:15)
[2021-03-12] MEDS: predniSONE 20 MG Tablet 40 MG PO (08:15)
[2021-03-12] MEDS: Isosorbide Mononitrate 30 MG Tablet PO (08:15)
[2021-03-12] MEDS: Sertraline 100 MG Tablet PO (08:15)
[2021-03-12] MEDS: Enoxaparin 40 MG/0.4 ML Syringe SC (08:15)
[2021-03-12] MEDS: Losartan Potassium 100 MG Tablet PO (08:15)
[2021-03-12] MEDS: Carvedilol 6.25 MG Tablet PO (08:15)
[2021-03-12] MEDS: TBO-FILGRASTIM 480 MCG/0.8 ML ML SC (09:18)
--- NOTE | 2021-03-12 10:53 | CASEMGMT ---
Per Dr. Hernandez, pt needs sent home on growth factor per oncology. Call to Melissa [facility] and she states that the chemo and growth factor will need prior auth and she will take care of it at this time. CM to follow. Deb JETER CM
--- NOTE | 2021-03-12 12:57 | DCINST_ITS ---
Discharge Instructions Diet Discharge Diet: 2000 Calorie Control Diet and 6 Cup Fluid Restriction Dressing / Incision Call your doctor if you observe: Fever of 101 or Higher and Shortness of breath Follow Up Care Test Results: Test results from this visit will be discussed in further detail at your follow-up appointment, if applicable. Discharge Plan Admission Admit Date/Time: 03/04/21 10:18 Primary Reason for Your Visit: acute on chronic respiratory failure Attending Provider: Gianluca Hernandez Primary Care Provider: Manuel Mortensen Consulting Providers: Bryan De Santiago ; Santino Banda ; Nelson Ferreira ; Edgar Matt ; Antonio Llamas ; Chan Quintero ; Slade Russ ; Shimon Loya ; Arthur Lilly ; Teresa Issa DIETARY ASSISTANT Discharge Orders/Prescriptions Prescriptions: New prednisone 20 mg Tablet 40 mg PO BREAKFAST 3 Days Qty: 6 RF: 0 Granix 480 mcg/0.8 mL Syringe 480 mcg subcut DAILY Qty: 0 RF: 0 Continued sertraline 100 mg tablet 100 mg PO DAILY RF: 0 bupropion HCl 300 MG tablet extended release 24 hr 300 mg PO DAILY RF: 0 clopidogrel 75 MG tablet 75 mg PO DAILY RF: 0 simvastatin 20 MG tablet 20 mg PO QHS RF: 0 losartan 100 MG tablet 100 mg PO DAILY RF: 0 carvedilol 6.25 mg tablet 6.25 mg PO BID RF: 0 isosorbide mononitrate 30 mg tablet extended release 24 hr 30 mg PO QAM Qty: 30 RF: 12 Discontinued ondansetron 8 mg tablet,disintegrating 8 mg PO Q8H PRN (Reason: nausea and vomiting) Qty: 30 RF: 2 lidocaine-prilocaine 2.5-2.5 % cream 1 applic topical ONCE PRN (Reason: port access) 30 Days Qty: 30 RF: 2 lorazepam 0.5 MG tablet 0.5 mg PO BID PRN PRN (Reason: Anxiety) RF: 0 hydrochlorothiazide 25 MG tablet 25 mg PO DAILY RF: 0 Referrals / Follow Up: Antonio Llamas MD [STAFF PHYSICIAN] - In 1 Week Manuel Mortensen [Primary Care Provider] - Within 2 Weeks Disposition Disposition (needs filled in before D/C Order can be placed): Home, Self Care
--- NOTE | 2021-03-12 13:20 | PCM.DC.SUM ---
Providers Date of Admission: 03/04/21 Primary Care Physician: Manuel Mortensen Consultations 03/04/21 11:33 Consult: Manufacturing Maintenance Mechanic / Pulmonary Medicine Routine Consulting Provider: Santino Banda Reason for Consult: Resp failure, HCAP, new CA Lung diagnosis EMERGENT Consult: No MD Notified: Yes Date Notified: 03/04/21 Time Notified: 10:24 Method of Notification: cortext 03/04/21 12:09 Consult: Oncology/Hematology Routine Consulting Provider: [facility]) Reason for Consult: Newly dx lung ca, admit with resp failure, on BIPAP in ICU. EMERGENT Consult: No MD Notified: Yes Date Notified: 03/04/21 Time Notified: 12:09 Method of Notification: Verbal 03/06/21 08:05 Consult: General Surgery Routine Consulting Provider: Bryan De Santiago Reason for Consult: Port Placement for chemo EMERGENT Consult: No MD Notified: Yes Date Notified: 03/06/21 Time Notified: 08:06 Method of Notification: Verbal Reason For Visit: ACUTE HYPOXIC RESPIRATORY FAILURE, HCAP Diagnosis Discharge Diagnosis (1) SIAD (syndrome of inappropriate antidiuresis): Status: Acute Code(s): E22.2 - Syndrome of inappropriate secretion of antidiuretic hormone (2) Small cell lung cancer, overlapping sites of right lung: Status: Acute Code(s): C34.81 - Malignant neoplasm of overlapping sites of right bronchus and lung (3) Acute respiratory failure with hypoxia: Status: Acute Code(s): J96.01 - Acute respiratory failure with hypoxia Medications at Discharge Home Medications sertraline 100 mg tablet 100 mg PO DAILY 07/02/17 isosorbide mononitrate 30 mg tablet,extended release 24 hr 30 mg PO QAM #30 tab 07/08/17 bupropion HCl 300 mg PO DAILY 07/20/18 clopidogrel 75 mg PO DAILY 08/18/18 simvastatin 20 mg PO QHS 08/18/18 losartan 100 mg PO DAILY 10/31/19 carvedilol 6.25 mg PO BID 12/08/20 prednisone 40 mg PO BREAKFAST 3 Days #6 tab 03/12/21 tbo-filgrastim [Granix] 480 mcg SUBCUT DAILY #0 ml 03/12/21 Hospital Course Operations None Procedures None Summary of Care Provided Minutes Spent on Discharge: 32 Hospital Course: presents with worsening dyspnea.This is a 65-year-old female presented to the emergency room and was noted to be hypoxic at 70% on 4 L at home. Patient was put on nonrebreather and was 91%. Patient had a chest x-ray showed dense opacification of the right side. Patient had acute on chronic hypoxic respiratory failure likely due to postoperative pneumonia due to newly diagnosed right small cell lung carcinoma. Patient was initiated on chemotherapy and treated for 3 days and has had improvement. Patient is back on her 4 L nasal cannula. Patient completed course of antibiotics with meropenem. Patient was also treated with Tbo-filgrastim and I will continue that for total of 10 days. This is being coordinated through her oncologist office. Patient did have hyponatremia with a sodium 122. This may be a paraneoplastic syndrome related with her small cell carcinoma. Patient was started on demeclocycline. That will be discontinued upon discharge patient will be instructed to restrict fluid intake to 1500 cc/day. Patient did have some leukocytosis issues on that appropriately with the growth factor that she was on. Discussed with oncology on the anticipate that that will resolve with time. Physical Exam Const alert Resp normal respiratory effort, no retractions, no use of accessory muscles and clear to auscultation bilaterally Cardio regular rate, regular rhythm, S1 normal heart sound and S2 normal heart sound GI normal to inspection, nondistended, normoactive bowel sounds Weight / BMI Weight Weight: 128.9 kg Body Mass Index (BMI) 48.9 ABG / Lab / Microbiology Data Result Diagrams: 03/12/21 04:33 03/12/21 04:33 Laboratory: Laboratory Results - last 24 hr 03/12/21 04:33: WBC 38.7 H*, RBC 5.43 H, Hgb 13.9, Hct 44.7, MCV 82.3, MCH 25.6 L, MCHC 31.1 L, RDW Std Deviation 45.4 H, RDW Coeff of Melina 15.2 H, Plt Count 242, MPV 9.8, Neut % (Auto) Not Reportable, Absolute Neuts (auto) 34.9 H, Absolute Lymphs (auto) 3.10, Total Counted 100, Neutrophils % (Manual) 89 H, Band Neutrophils % 1, Lymphocytes % (Manual) 8 L, Monocytes % (Manual) 1, Eosinophils % (Manual) 1, Diff Path Review May foll, Platelet Estimate ADEQUATE, RBC Morphology NORM C+C 03/12/21 04:33: Sodium 129 L, Potassium 4.8, Chloride 96 L, Carbon Dioxide 30.0, Anion Gap 3 L, BUN 20 H, Creatinine 0.50 L, Estim Creat Clear Calc 88.72, Est GFR (MDRD) Af Amer 158, Est GFR (MDRD) Non-Af 131, BUN/Creatinine Ratio 39.8 H, Glucose 80, Calcium 9.8 Microbiology: Microbiology 03/04/21 07:00 Blood Culture (Wb) - Left Hand Blood Culture - Final No growth in 5 days. 03/04/21 15:00 Sputum, Expectorated/Coughed Gram Stain - Final 03/04/21 15:00 Sputum, Expectorated/Coughed Respiratory Culture - Final Mixed normal respiratory janeen. No Streptococcus pneumoniae, beta-hemolytic Streptococcus or Staphylococcus aureus isolated. 03/04/21 11:30 Urine Catheter - Catheter Legionella Antigen - Final 03/04/21 11:30 Urine Catheter - Catheter Streptococcus pneumoniae Antigen (M - Final 03/04/21 07:20 Nasal Secretion SARS-CoV-2 Antigen (Rapid) - Final D/C Instructions Discharge Diet: 2000 Calorie Control Diet and 6 Cup Fluid Restriction Call your doctor if you observe: Fever of 101 or Higher and Shortness of breath Meaningful Use Info Meaningful Use Diagnoses (Choose all that apply): None applicable Discharge Plan Admission Admit Date/Time: 03/04/21 10:18 Primary Reason for Your Visit: acute on chronic respiratory failure Attending Provider: Gianluca Hernandez Primary Care Provider: Manuel Mortensen Consulting Providers: Bryan De Santiago ; Santino Banda ; Nelson Ferreira ; Edgar Matt ; Antonio Llamas ; Chan Quintero ; Slade Russ ; Shimon Loya ; Arthur Lilly ; Teresa Issa GROOVER RUNNER Discharge Orders/Prescriptions Prescriptions: New prednisone 20 mg Tablet 40 mg PO BREAKFAST 3 Days Qty: 6 RF: 0 Granix 480 mcg/0.8 mL Syringe 480 mcg subcut DAILY Qty: 0 RF: 0 Continued sertraline 100 mg tablet 100 mg PO DAILY RF: 0 bupropion HCl 300 MG tablet extended release 24 hr 300 mg PO DAILY RF: 0 clopidogrel 75 MG tablet 75 mg PO DAILY RF: 0 simvastatin 20 MG tablet 20 mg PO QHS RF: 0 losartan 100 MG tablet 100 mg PO DAILY RF: 0 carvedilol 6.25 mg tablet 6.25 mg PO BID RF: 0 isosorbide mononitrate 30 mg tablet extended release 24 hr 30 mg PO QAM Qty: 30 RF: 12 Discontinued ondansetron 8 mg tablet,disintegrating 8 mg PO Q8H PRN (Reason: nausea and vomiting) Qty: 30 RF: 2 lidocaine-prilocaine 2.5-2.5 % cream 1 applic topical ONCE PRN (Reason: port access) 30 Days Qty: 30 RF: 2 lorazepam 0.5 MG tablet 0.5 mg PO BID PRN PRN (Reason: Anxiety) RF: 0 hydrochlorothiazide 25 MG tablet 25 mg PO DAILY RF: 0 Referrals / Follow Up: Antonio Llamas MD [STAFF PHYSICIAN] - In 1 Week Manuel Mortensen [Primary Care Provider] - Within 2 Weeks Disposition Disposition (needs filled in before D/C Order can be placed): Home, Self Care Charges/Coding Visit Charges Inpatient E&M: 19044 [facility]
--- NOTE | 2021-03-12 13:30 | CASEMGMT ---
Call back from Melissa in Oncology office and she states that pt's insurance denied the growth factor but they are doing P2P and they will have pt f/u tomorrow either way. Pt is also scheduled for MRI brain and possible PET scan tomorrow. Pt updated on all, voices understanding. Pt voices no further questions/concerns/needs. Deb JETER CM
--- NOTE | 2021-03-12 15:10 | NURSING ---
pt to have labs drawn via port at [facility] tomorrow at 1345, To have port de accessed tomorrow, heparin locked prior to dc.
[2021-03-13 09:31] LABS: Pathologist Review Reviewed
== END 2021-03-12 16:37 | disposition home or self-care (01) | DRG 180 ==
LOC: ED 07:32 → ICU 10:48 → PCU 03-11 07:08
PROVIDERS: Internal Medicine Critical Care Medicine; Student in an Organized Health Care Education/Training Program; Surgery; Admitting Provider Family Medicine; Emergency Provider Emergency Medicine
PROC: 05HM33Z Insertion of Infusion Device into Right Internal Jugular Vein, Percutaneous Approach (ICD-10-PCS; principal; 2021-03-06 11:45)
DX: C34.81 Malignant neoplasm of overlapping sites of right bronchus and lung (principal); J18.9 Pneumonia, unspecified organism; J96.21 Acute and chronic respiratory failure with hypoxia; E22.2 Syndrome of inappropriate secretion of antidiuretic hormone; J44.0 Chronic obstructive pulmonary disease with (acute) lower respiratory infection; Z68.42 Body mass index [BMI] 45.0-49.9, adult; J44.1 Chronic obstructive pulmonary disease with (acute) exacerbation; J90 Pleural effusion, not elsewhere classified; E66.01 Morbid (severe) obesity due to excess calories; D50.9 Iron deficiency anemia, unspecified; I10 Essential (primary) hypertension; I25.10 Atherosclerotic heart disease of native coronary artery without angina pectoris; E78.00 Pure hypercholesterolemia, unspecified; E78.5 Hyperlipidemia, unspecified; I25.2 Old myocardial infarction; K59.00 Constipation, unspecified; K76.89 Other specified diseases of liver; Z79.01 Long term (current) use of anticoagulants; Z79.02 Long term (current) use of antithrombotics/antiplatelets; Z87.891 Personal history of nicotine dependence; F32.A Depression, unspecified; Z86.718 Personal history of other venous thrombosis and embolism; Z85.42 Personal history of malignant neoplasm of other parts of uterus; Z79.899 Other long term (current) drug therapy; Z95.1 Presence of aortocoronary bypass graft; Z99.81 Dependence on supplemental oxygen; Z86.16 Personal history of COVID-19
CPT/HCPCS: 36415; 71045; 71275; 74160; 77001; 80048; 80053; 80202; 82533; 82570; 83036; 83605; 83735; 83880; 83930; 83935; 84100; 84145; 84300; 84439; 84443; 84484; 85025; 85379; 87040; 87070; 87205; 87426; 87449; 87641; 93005; 94002; 94003; 94640; 94660; 94762; 97110; 97116; 97162; 97166; 97530; 97535; 97802; 99251; 99285; 99406; J2185; J7030; J7040; J7050; J9045; Q9967; A4216; C1788; G0463; J0610; J1447; J1940; J2405; J2469; J3490; J9181

== ENCOUNTER 2021-03-13 10:16 | Outpatient (CLI) | payer MEDICARE, SELFPAY ==
[2017-07-08 11:20] VITALS: BMI 52.1
--- NOTE | 2021-03-13 10:18 | MRI_ITS ---
STUDY: MRI BRAIN WITH AND WITHOUT CONTRAST REASON FOR EXAM: Female, 65 years old. small cell lung cancer staging TECHNIQUE: Standardized multiplanar fat and water weighted pulse sequences were obtained. IV dotarem 25ml was administered for the contrast portion of the examination. COMPARISON: None. FINDINGS: Normal size of the ventricles and extra-axial spaces for the patient''s age. There are a limited number of small white matter hyperintensities, distributed throughout the deep white matter tracts of the cerebral hemispheres, consistent with mild chronic white matter ischemic changes. Normal bilateral basal ganglia. Normal thalami. There is no extra-axial fluid accumulation. There is no enhancing intra-axial or extra-axial abnormality. Normal sella turcica, pituitary gland, infundibular stalk, optic chiasm and hypothalamus. Normal tectal plate and pineal gland. There is focal hyperintensity on the axial postcontrast sequence involving the rik which is likely secondary to artifact. Normal midbrain, rik and medulla. Normal cerebellum. Normal basal cisterns. There is a region. Soft tissue lesion involving the right frontal scalp. There is no demonstrated extension to involve the calvarium. There is 2 cm nodule involving the superficial lobe of the left parotid gland. MRI/Brain W/WO Contrast IMPRESSION: No evidence of intracranial metastatic disease. Right frontal scalp lesion. 2 subcentimeter left parotid lesion. Differential considerations include benign and malignant disease. Comparison with prior examinations if available or further evaluation with CT of the neck can be obtained. Electronically Signed: Eliu Park MD at 12:34 EST ,
== END 2021-03-13 23:59 | disposition short-term general hospital (02) ==
LOC: MRI 10:18
PROVIDERS: Referring Provider Student in an Organized Health Care Education/Training Program; Visit Provider Student in an Organized Health Care Education/Training Program
DX: C34.90 Malignant neoplasm of unspecified part of unspecified bronchus or lung (principal)
CPT/HCPCS: 70553; A9575

== ENCOUNTER 2021-03-17 07:38 | Emergency (ER) | payer MEDICARE, SELFPAY ==
[2017-07-08 11:20] VITALS: BMI 52.1
[2021-03-17 07:42] VITALS: BP 120/62; PULSE 96; RESP 17; TEMP 37.2; O2SAT 90; BMI 48.6
--- NOTE | 2021-03-17 07:58 | EDS_ITS ---
HPI History of Present Illness Chief Complaint: General Illness Detail of Chief Complaint: Muscle and body aches that started around 6 PM last night Informant: patient Narrative Narrative: Patient presents to the emergency department with complaint of body aches and muscle cramping mostly involving the upper legs and upper arms as well as her back. Patient states that she just received chemotherapy last on March 08 and one of the chemo agents can cause muscle cramping. Patient states that she spoke with her oncologist who referred her to the emergency department for further evaluation. Patient denies any fever. She denies recent illness other than she did have an admission recently for respiratory failure related to her lung cancer and pneumonia. Patient denies any dyspnea out of the ordinary. She denies urinary symptoms. She denies abdominal pain. Prior similar symptoms: No PFSH PFSH Medical History Abnormal stress test Anxiety state Atherosclerotic heart disease of [place] coronary artery without angina pectoris CINV (chemotherapy-induced nausea and vomiting) COPD (chronic obstructive pulmonary disease) Diverticulosis Encephalitis Essential hypertension History of DVT (deep vein thrombosis) History of uterine cancer Morbid obesity Old myocardial infarction Pure hypercholesterolemia Tobacco use disorder Type 2 diabetes mellitus Home Medications sertraline 100 mg tablet 100 mg PO DAILY 07/02/17 [History Last Taken 08/17/18] isosorbide mononitrate 30 mg tablet,extended release 24 hr 30 mg PO QAM #30 tab 07/08/17 [Rx Last Taken 08/18/18] bupropion HCl 300 mg PO DAILY 07/20/18 [History Last Taken 08/18/18] clopidogrel 75 mg PO DAILY 08/18/18 [History Last Taken 08/18/18] simvastatin 20 mg PO QHS 08/18/18 [History Last Taken 08/17/18] losartan 100 mg PO DAILY 10/31/19 [History Last Taken Unknown] carvedilol 6.25 mg PO BID 12/08/20 [History Last Taken Unknown] lidocaine-prilocaine 1 applic TOPICAL DAILY PRN PRN #5 g 03/12/21 [Rx Last Taken Unknown] ondansetron HCl 8 mg PO Q8H PRN #20 tab 03/12/21 [Rx Last Taken Unknown] tbo-filgrastim [Granix] 480 mcg SUBCUT DAILY #0 ml 03/12/21 [Rx Last Taken Unknown] lorazepam 0.5 mg PO Q6H PRN PRN 03/17/21 [History Last Taken Unknown] Allergy/AdvReac Type Severity Reaction Status Date / Time cephalexin [From Keflex] Allergy Severe Rash Verified 03/17/21 07:41 levofloxacin [From Levaquin] Allergy Severe Rash Verified 03/17/21 07:41 niacin Allergy Severe Rash Verified 03/17/21 07:41 Penicillins Allergy Severe Anaphylaxis Verified 03/17/21 07:41 Sulfa (Sulfonamide Allergy Severe Rash Verified 03/17/21 07:41 Antibiotics) citalopram [From Celexa] AdvReac Severe Rash Verified 03/17/21 07:41 Estrogens AdvReac Severe blood clots Verified 03/17/21 07:41 rosuvastatin [From Crestor] AdvReac Severe myalgias Verified 03/17/21 07:41 oral contraceptives AdvReac Severe Unknown Uncoded 03/17/21 07:41 Family History Father CAD (coronary artery disease) Cancer Prostate and Bladder Mother CVA (cerebral vascular accident) Hypertension Surgical History Aortocoronary bypass status (~10/31/11) History of tonsillectomy History of total hysterectomy History of total mastectomy of left breast (~08/2018) History of tubal ligation Social History household members: spouse Smoking Status: Former smoker quit status: considering quitting alcohol intake: never substance use type: does not use ROS ROS ED Constitutional Constitutional ED: Reports systems reviewed and no addt'l complaints, except as documented; Denies body ache(s), change in weight or chills Eyes Eyes: Denies acute decrease in peripheral vision, change in vision, double vision or loss of vision ENT ENT ED: Reports none; Denies ear pain, lip swelling, loss taste/smell, neck pain, otalgia or sore throat Cardiovascular Cardiovascular: Reports none; Denies abdominal pain, chest pain with activity, leg edema, lightheadedness, palpitations, rapid heart rate or syncope Respiratory/Chest Respiratory/Chest: Reports none; Denies change in mental status, dry cough, dyspnea, hemoptysis, shortness of breath at rest or shortness of breath with exertion Gastrointestinal Gastrointestinal: Reports none; Denies abdominal pain, change in stool character, diarrhea, hematemesis, hematochezia, melena, rectal bleeding or vomiting Genitourinary Genitourinary ED: Reports none; Denies abdominal discomfort, anuria, dysuria, genital pain or polyuria Musculoskeletal Musculoskeletal: Reports none, arthralgias and myalgias; Denies back pain, difficulty walking, extremity pain or muscle weakness Integumentary Reports none; Denies abscess or rash Neurologic Neurologic: Reports none; Denies abnormal gait, confusion, focal weakness, frequent falls, headache(s), loss of vision, numbness, paresthesias, radicular pain, vertigo or weakness Psychiatric Psychiatric: Reports systems reviewed and no addt'l complaints, except as documented and none; Denies behavioral changes, confusion, difficulty concentrating, hallucinations, suicidal ideation, tactile hallucinations or visual hallucinations Endocrine Endocrinology: Denies none, cold intolerance, excessive sweating, fatigue or heat intolerance Hematologic/Lymphatic Hematologic/Lymphatic: Reports none; Denies anemia, easy bleeding or easy bruising Allergic/Immunologic Allergic/Immunologic ED: Denies as per HPI, none, lip swelling, mouth swelling, throat swelling, tongue swelling or hives EXAM Physical Exam Const Vital Signs: 03/17/21 07:42 03/17/21 08:03 Temperature 98.9 F 98.9 F Temperature Source Oral Oral Pulse Rate 96 85 Respiratory Rate 17 26 H Respiratory Effort Normal Respiratory Pattern Tachypnea Blood Pressure 120/62 117/72 Blood Pressure Mean 81 87 Pulse Ox 90 95 Oxygen Delivery Method Nasal Cannula Nasal Cannula Oxygen Flow Rate (L/min) 4 4 Positive well nourished and well developed General Appearance ED: well developed and NAD HEENT Reports TM's clear and moist mucous membranes normocephalic and atraumatic; Negative for trauma or tenderness Tympanic Membrane ED: Yes TM's clear Eyes PERRL and EOMs intact bilaterally General Eye ED: Negative for pale conjunctiva or scleral icterus Neck no lymphadenopathy, supple and no JVD General: Negative for tenderness Chest Wall inspection of chest normal and palpation of chest normal Chest: Negative for tenderness Resp normal respiratory effort and clear to auscultation bilaterally Resp Narrative: Slightly decreased breath sounds on the right lower lobe compared to the left. Mild fine expiratory wheezes. Mild tachypnea. No accessory muscle use or retractions. Effort and Inspection: Negative for respiratory distress or pain with movement Auscultation: rhonchi and wheezes; Negative for diminished lung sounds Cardio regular rate, regular rhythm, S1 normal heart sound, S2 normal heart sound and no murmurs Peripheral Pulses: pulses 2+ throughout GI normal to inspection, nondistended, normoactive bowel sounds, soft to palpation, non-tender, non-distended and no masses Back/Spine no CVA tenderness and no thoracic nor lumbar tenderness Extremity normal to inspection Extremity Narrative: +2 edema both lower extremities. General Extremety ED: Yes edema General Extremity: edema Neuro oriented x3, CN's II-XII intact bilaterally, no sensory deficits noted and gait normal Sensorium / Orientation: awake, alert, oriented to person, oriented to place and oriented to time Motor Exam: strength 5/5 throughout and strength abnormal Psych mental status grossly normal Skin no rashes or lesions noted and no wounds MDM MDM MDM Narrative Medical decision making narrative: IV line established on arrival. Patient was ordered normal saline. Lab work-up was unremarkable. She did receive some Tylenol. This point etiology of her muscle cramping is unclear although I suspect maybe possibly related to her chemotherapy. Patient advised to follow- up with her oncologist in 3 to 5 days. Lab Data Attestation: I reviewed the patient's lab results. Labs: Laboratory Results - last 24 hr 03/17/21 03/17/21 03/17/21 08:27 08:27 08:27 WBC 8.1 RBC 4.40 Hgb 11.2 L Hct 36.3 L MCV 82.5 MCH 25.5 L MCHC 30.9 L RDW Std Deviation 44.8 H RDW Coeff of Melina 14.8 H Plt Count 141 L MPV 10.6 Neut % (Auto) Not Reportable Absolute Neuts (auto) 5.3 Absolute Lymphs (auto) 1.45 Total Counted 100 Neutrophils % (Manual) 59 Band Neutrophils % 7 H Lymphocytes % (Manual) 18 L Monocytes % (Manual) 9 Eosinophils % (Manual) 3 Myelocytes % 3 H Promyelocytes % 1 H Diff Path Review May foll Platelet Estimate SLT DEC RBC Morphology NORM C+C Sodium 134 L Potassium 3.8 Chloride 100 Carbon Dioxide 30.0 Anion Gap 4 L BUN 12 Creatinine 0.76 Estim Creat Clear Calc 61.05 Est GFR (MDRD) Af Amer 97 Est GFR (MDRD) Non-Af 81 BUN/Creatinine Ratio 15.7 Glucose 84 Calcium 9.6 Magnesium Cancelled Total Bilirubin 0.60 AST 19 ALT 30 Alkaline Phosphatase 157 H Total Creatine Kinase 66 Total Protein 6.5 Albumin 3.1 L Globulin 3.4 Albumin/Globulin Ratio 0.9 EKG Initial EKG: Attestation: I personally reviewed and interpreted this EKG as follows: Comments: Sinus rhythm with a ventricular rate of 83 bpm with an incomplete left bundle branch block. Prior EKG tracings: available for review Prior: Unchanged Discharge Plan Triage Chief Complaint: General Illness ED Provider: Mikayla Hart Dx/Rx/DC Orders Clinical Impression: Cramp in muscle Instructions: ED Muscle Spasm Prescriptions: No Action sertraline 100 mg tablet 100 mg PO DAILY RF: 0 bupropion HCl 300 MG tablet extended release 24 hr 300 mg PO DAILY RF: 0 clopidogrel 75 MG tablet 75 mg PO DAILY RF: 0 simvastatin 20 MG tablet 20 mg PO QHS RF: 0 losartan 100 MG tablet 100 mg PO DAILY RF: 0 carvedilol 6.25 mg tablet 6.25 mg PO BID RF: 0 Granix 480 mcg/0.8 mL Syringe 480 mcg subcut DAILY Qty: 0 RF: 0 lidocaine-prilocaine 2.5-2.5 % cream 1 applic topical DAILY PRN PRN (Reason: port irritation) Qty: 5 RF: 0 ondansetron HCl 4 mg tablet 8 mg PO Q8H PRN (Reason: nausea and vomiting) Qty: 20 RF: 0 lorazepam 0.5 mg tablet 0.5 mg PO Q6H PRN PRN (Reason: Anxiety) RF: 0 isosorbide mononitrate 30 mg tablet extended release 24 hr 30 mg PO QAM Qty: 30 RF: 12 Primary Care Provider: Manuel Mortensen Referrals: Edgar Matt MD [NON-STAFF] - 3-5 Days Manuel Mortensen [Primary Care Provider] - Disposition Disposition: Home, Self Care
[2021-03-17 08:03] VITALS: BP 117/72; PULSE 85; RESP 26; TEMP 37.2; O2SAT 95
[2021-03-17] MEDS: 0.9% Normal Saline 1,000 ML 150 ML IV (08:33)
[2021-03-17 08:39] LABS: Hematocrit 36.3 % (37-47); Hemoglobin 11.2 g/dL (12.0-15.0); Mean Corp Hgb Conc 30.9 g/dL (32-36); Mean Corpuscular Hgb 25.5 pg (27.0-32.0); Mean Corpuscular Volume 82.5 fL (81-99); Mean Platelet Vol. 10.6 fl (6.2-12.0); POSITIVE COUNT YES; POSITIVE MORPHOLOGY YES; Platelet Count 141 K/mm3 (150-450); RBC Distribution Width CV 14.8 % (11.6-14.6); RBC Distribution Width SD 44.8 fl (35.1-43.9); White Blood Count 8.1 K/mm3 (4.4-11.0)
[2021-03-17 08:44] LABS: Differential Indicated MANUAL DIFF
[2021-03-17 08:56] LABS: CPK Total, Creatine Kinase 66 U/L (26-192)
[2021-03-17 09:03] LABS: ALB/GLOB Ratio 0.9 RATIO (0.9-2.4); AST(SGOT) 19 U/L (15-37); Alanine Aminotransfer ALT/SGPT 30 U/L (13-56); Albumin, Serum 3.1 g/dL (3.2-5.0); Alkaline Phosphatase 157 U/L (45-117); Anion Gap 4 (5-15); BUN 12 mg/dL (7-18); BUN/Creat Ratio 15.7 RATIO (10-20); Calcium,Total 9.6 mg/dL (8.5-10.1); Chloride 100 mmol/L (98-107); Creatinine, Serum 0.76 mg/dL (0.55-1.02); EST Glomerular Filtration Rate 81 mL/min (>60); Est Glom Filt Rate - Afr Amer 97 mL/min (>60); Estimated Creatinine Clearance 61.05 ml/min; Globulin 3.4 g/dL (2.2-4.2); Glucose 84 mg/dL (74-106); Potassium 3.8 mmol/L (3.5-5.1); Protein, Total 6.5 g/dL (6.4-8.2); Sodium Level 134 mmol/L (136-145)
[2021-03-17 09:09] LABS: Eosinophil 3 % (0-5); Lymphocyte 18 % (19-41); Monocyte 9 % (0-10); Myelocyte 3 % (0-0); Neutrophil-Band 7 % (0-5); Neutrophil-Segmented 59 % (47-70); Promyelocyte 1 % (0-0); Total Cells Counted 100 (MANUAL DIFF)
[2021-03-17 09:10] LABS: Platelet Estimate SLT DEC (ADEQ); Red Cell Morphology NORM C+C NORMAL (NORM C&C)
[2021-03-17 09:11] LABS: Absolute Lymphocyte Count 1.45 X10^3/uL (0.83-4.51); Absolute Neutrophil Count 5.3 X10^3/uL (2.0-7.7); Lymphocyte # 1.45 X10^3/ul (0.83-4.51); Neutrophil # 5.34 X10^3/uL (2.7-7.7)
--- NOTE | 2021-03-17 09:19 | EKG12_ITS ---
Test Reason : GENERAL ILLNESS Blood Pressure : / mmHG Vent. Rate : 083 BPM Atrial Rate : 083 BPM P-R Int : 190 ms QRS Dur : 118 ms QT Int : 372 ms P-R-T Axes : 031 -20 058 degrees QTc Int : 437 ms Normal sinus rhythm Incomplete left bundle branch block Borderline ECG Confirmed by BELLA IRIZARRY, MARCO ([id number]), makeup editor CARLITO BAUER ([id number]) on 03/18/2021 11:05:33 AM Referred By: KATIE Confirmed By:MARCO BLANCO MD
[2021-03-17] MEDS: Acetaminophen 325 MG Tablet 650 MG PO (09:55)
[2021-03-17 10:09] VITALS: BP 106/46
[2021-03-18 15:06] LABS: Pathologist Review Reviewed
[2021-03-19 12:31] LABS: MG Sendout 1.7 mg/dL (1.6-2.3)
== END 2021-03-17 10:10 | disposition home or self-care (01) ==
PROVIDERS: Emergency Provider Emergency Medicine; Visit Provider Emergency Medicine
DX: R25.2 Cramp and spasm (principal); J44.9 Chronic obstructive pulmonary disease, unspecified; E66.01 Morbid (severe) obesity due to excess calories; Z68.42 Body mass index [BMI] 45.0-49.9, adult; E11.9 Type 2 diabetes mellitus without complications; I25.10 Atherosclerotic heart disease of native coronary artery without angina pectoris; I10 Essential (primary) hypertension; Z87.891 Personal history of nicotine dependence; E78.00 Pure hypercholesterolemia, unspecified; I25.2 Old myocardial infarction; Z86.718 Personal history of other venous thrombosis and embolism; Z85.42 Personal history of malignant neoplasm of other parts of uterus; Z79.899 Other long term (current) drug therapy; Z95.1 Presence of aortocoronary bypass graft; I44.7 Left bundle-branch block, unspecified
CPT/HCPCS: 80053; 82550; 83735; 85025; 87426; 93005; 99285; J7030; A4216

== ENCOUNTER 2021-03-26 10:46 | Outpatient (CLI) | payer MEDICARE, SELFPAY ==
[2017-07-08 11:20] VITALS: BMI 52.1
--- NOTE | 2021-03-26 | IMM_PTH ---
PATIENT: OLENA HEALY V LOC: U#:[id number] AGE/SX: 65/F ROOM: RE03/26/[address]: Dr. Arthur Lilly DO : 1955 BED: DIS: 03/26/2021 SPEC #: [id number] RECD: 03/28/21 13:53 STATUS: JAIMIE REQ #: [id number] FLIP: 03/26/21 00:[address]: Arthur Lilly DEPT: IMMUNOHISTOCHEMISTRY RECD BY: Mikki Patrick ENTERED: 03/28/21 13:56 SP TYPE: IMMUNO OTHR DR: Manuel Mortensen Tissues: THORACIC FLUID Procedures: Synapto (add) Adama Ret (add) CD45 (add) CD56 (add) CHROMO (add) CK20 (add) CK5-6 (add) CK7 (add) CK8 (add) KI-67 (add) NV (add) TTF1 (add) Vimentin (add) Pankeratin (add) P40 (add) ER (initial) PHYSICIAN & INSTITUTION [address] [address] SPECIMEN INFORMATION: Tissue Source: Thoracentesis fluid Clinical Info: Right pleural effusion Specimen Number: [id number] CPT code: 90161, 87994 x15 METHODOLOGY: Deparaffinized sections of prefer/formalin-fixed tissue or PAP/DQ stained slides are incubated with monoclonal/polyclonal antibodies/oligonucleotide probes. Localization is made via biotin free immunoperoxidase method. Appropriate controls are performed and reacted as expected. Results on target cell population are indicated in the following table: RESULTS: ANTIBODY / CLONE RESULT ER (6F11) negative NV (1E2) negative AE1-3 (AE1/AE3/PCK26) positive CK7 (OV-TL12/30) positive CK8 (79dwkoM35) positive CK20 (KS20.8) negative CD45 (RP2/18) negative Vimentin (V9) negative CD56 (123C3.D5) positive Chromo (LK2H10) positive Synapto (polyclonal) positive TTF-1 (8G7G3/1) positive CALRET (polyclonal) negative CK5-6 (D5 & 1684) negative P40 (BC28) negative Ki-67 (30-9) positive These tests were developed and their performance characteristics determined by [facility]. They may not have been cleared or approved by the U.S. Food and Drug Administration. The FDA has determined that such clearance or approval is not necessary. The above immunohistochemical/dualISH markers are ordered and reviewed by the Pathologist. 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 SJ:israel 03/29/2021
--- NOTE | 2021-03-26 10:50 | US_ITS ---
PROCEDURE: ULTRASOUND GUIDED THORACENTESIS. DATE: 03/26/2021.. INDICATION: Female, 65 years old. Right pleural effusion. PHYSICIAN: Raza Keita M.D. PROCEDURE: The risks, benefits, and alternatives to the procedure were explained to the patient. The specific risks of bleeding, infection, and pneumothorax requiring chest tube insertion were discussed and accepted. Written informed consent was obtained. Ultrasonographic evaluation of the right lower pleural space was carried out. An adequate pocket was identified. The patient was placed in the sitting, upright position. The overlying skin was prepped and draped in sterile fashion. 1% lidocaine was administered subcutaneously for local anesthesia. Under ultrasound guidance, a 5 [place] thoracentesis needle/catheter system was advanced into the right posterior lower pleural fluid collection. Approximately 60 mL of bloody fluid was drained. The catheter was removed, and a sterile dressing was applied. A specimen was collected and sent to the laboratory for analysis, as requested by the referring clinician. The patient tolerated the procedure well. A chest x-ray was ordered. US/Thoracentesis W US IMPRESSION: Ultrasound-guided right thoracentesis. Electronically Signed: Raza Keita MD at 8:07 EST ,
[2021-03-26] MEDS: Lidocaine 2% (20 ml mdv) 20 ML Vial INFILT (12:26)
--- NOTE | 2021-03-26 12:35 | FLU_PTH ---
PATIENT: OLENA HEALY V LOC: [facility]#:[id number] AGE/SX: 65/F ROOM: RE03/26/[address]: Dr. 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 See comment. EULALIO:israel 03/28/2021 COMMENT Immunohistochemistry ([id number]) supports the above diagnosis. Clinical correlation and appropriate follow up are necessary. This case is discussed with Dr. Lilly on 03/28/2021. Case has been reviewed in consultation with Dr. Sheikh who concurs with the above diagnosis. IDC:AM CYTOLOGY STUDY Slides are reviewed. CYTOLOGY GROSS Received is 50 ml of turbid red fluid labeled with the patient's name and and designated per the requisition as thoracentesis. Submitted for cytology preparation including cell block. / israel 03/27/2021 TC:0 CPT: 50524, 43697
--- NOTE | 2021-03-26 12:43 | RAD_ITS ---
STUDY: X-RAY CHEST REASON FOR EXAM: Female, 65 years old. Post right thoracentesis. TECHNIQUE: AP inspiration and expiration views. COMPARISON: Comparison is made with prior examination dated 09/03/2021. FINDINGS: A right-sided tu catheter is seen with the tip at the junction of the superior vena cava and right atrium. The patient is status post right thoracocentesis. There is no evidence of pneumothorax. Persistent mass lesion in the right upper lobe. Sternal cerclage wires and vascular clips are present from a prior sternotomy and coronary artery bypass graft procedure (CABG). Normal mediastinum and phu. Normal visualized pulmonary arteries. There is atherosclerotic calcification of the aortic arch with tortuosity. RAD/Chest Insp/Exp 2 View IMPRESSION: Status post right thoracentesis. There is no evidence of pneumothorax. Electronically Signed: Raza Keita MD at 13:09 EST ,
[2021-03-26] MEDS: 0.9% Saline Lock 10 ML Syringe IV (12:45)
[2021-03-26 12:53] LABS: Cytology, Body Fluid / CSF SEE PATHOLOGY REPORT
[2021-03-26 15:07] VITALS: BP 103/54; BP 122/86; BP 132/91; PULSE 88; PULSE 91; PULSE 94; RESP 18; RESP 97; TEMP 36.7; O2SAT 18; O2SAT 98; O2SAT 99
== END 2021-03-26 23:59 | disposition home or self-care (01) ==
LOC: US 10:48
PROVIDERS: Referring Provider Student in an Organized Health Care Education/Training Program; Visit Provider Student in an Organized Health Care Education/Training Program
DX: J90 Pleural effusion, not elsewhere classified (principal)
CPT/HCPCS: 32555; 71046; 88108; 88305; 88313; 88341; 88342; A4216

== ENCOUNTER 2021-04-01 08:55 | Outpatient (CLI) | payer MEDICARE, SELFPAY ==
[2017-07-08 11:20] VITALS: BMI 52.1
== END 2021-04-01 23:59 | disposition home or self-care (01) ==
LOC: LAB 08:56
PROVIDERS: Referring Provider Otolaryngology; Visit Provider Otolaryngology
DX: D49.0 Neoplasm of unspecified behavior of digestive system (principal)

== ENCOUNTER 2021-05-08 07:32 | Outpatient (CLI) | payer MEDICARE, SELFPAY ==
[2021-04-10 11:05] VITALS: BMI 52.1
--- NOTE | 2021-05-08 07:40 | CT_ITS ---
STUDY: CT CHEST T ABDOMEN WITH CONTRAST REASON FOR EXAM: Female, 65 years old. SCLC, RESPONSE TO TREATMENT RADIATION DOSAGE (If Supplied By Facility): CTDIvol = ( 22.18 ) mGy, DLP = ( 1865.53 ) mGycm TECHNIQUE: Transaxial imaging was performed following intravenous administration of IV 100mL Isovue-300. Individualized dose optimization techniques were used for this CT. COMPARISON: Comparison is made with prior examination dated 03/04/2021. FINDINGS: CHEST A right-sided portacatheter is seen with the tip in the superior vena cava. There is heterogeneous enlargement of the thyroid involving both lobes as well as the isthmus. Small bilateral axillary lymph nodes are seen. Mild residual increased markings are seen in the posterior aspect of the right upper lobe abutting the fissure as well as in the superior segment of the right lower lobe. No evidence of pleural effusion at this time. There is no demonstrated pleural abnormality. Sternal cerclage wires and vascular clips are present from a prior sternotomy and coronary artery bypass graft procedure (CABG). There are calcifications of the coronary arteries. Mild enlargement of the right paratracheal lymph node measuring 1.5 cm. Persistent pretracheal mild enlargement. This has decreased in size. Mildly enlarged right hilar lymph nodes. These have decreased in size as compared to prior study. Normal unenhanced pulmonary arteries. Normal aorta arch and descending thoracic aorta. There are multi-level degenerative changes of the thoracic spine. ABDOMEN There is decreased attenuation of the liver consistent with steatosis. 1 cm hypodensity in the anterior aspect of the right lower lobe are suggestive of a small cyst. This is unchanged. Stable small cystic structure in the anterior aspect of the right lobe of the liver medially adjacent to the falciform Normal gallbladder and extrahepatic biliary system. Normal spleen. Normal pancreas. Normal bilateral adrenal glands. Normal right kidney. Normal left kidney. Normal visualized stomach. Normal small intestine. There are scattered colonic diverticula consistent with diverticulosis. There is non-visualization of the appendix. Normal abdominal aorta. Normal inferior vena cava. Normal retroperitoneum. Normal abdominal wall. There are mild degenerative changes of the visualized lumbar spine. CT/CT Chest AND Abd W/ Contrast IMPRESSION: Marked improvement of the aeration of the right lung with a mild residual mediastinal and right hilar adenopathy. No evidence of pleural effusion. Electronically Signed: Raza Keita MD at 9:06 EDT ,
[2021-05-08] MEDS: 0.9% Saline Lock 10 ML Syringe IV (08:04)
== END 2021-05-08 23:59 | disposition home or self-care (01) ==
PROVIDERS: Referring Provider Internal Medicine Hematology & Oncology; Visit Provider Internal Medicine Hematology & Oncology
DX: C34.90 Malignant neoplasm of unspecified part of unspecified bronchus or lung (principal)
CPT/HCPCS: 71260; 74160; Q9967; A4216

== ENCOUNTER → 2021-07-09 | Outpatient (CLI) | payer MEDICARE, SELFPAY ==
[2021-04-10 11:05] VITALS: BMI 52.1
--- NOTE | 2021-07-09 13:08 | CT_ITS ---
: CT Chest W/ Contrast Injection 07/09/2021 3:08 PM REASON FOR EXAM: Female, 65 years old. SCLC RESTAGING POST CHEMO Individualized dose optimization techniques were used for this CT. Radiation: CTDIvol = [23.44] mGy, DLP = [1876.95] mGy-cm TECHNIQUE: Transaxial imaging was performed with 100 cc of Isovue 300 IV contrast material. COMPARISON: None. FINDINGS: There are degenerative changes of the shoulders. There is no pneumothorax. Right vascular line. Multiple median sternotomy wires are noted consistent for cardiac surgery. The thyroid is heterogenous. It contains nodules. This should be further evaluated with ultrasound. This can be performed as an outpatient. Diffuse bilateral groundglass infiltrates are improved since the study done yesterday. There are calcifications of the coronary arteries. 12 mm stable right pretracheal lymph node. Stable lymph nodes around the aortic arch. Stable 26 mm carinal lymph node. Stable right hilar lymph node. Normal hilar regions. Normal pulmonary arteries. There is atherosclerotic calcification of the aortic arch with tortuosity and elongation of the aortic arch and descending thoracic aorta. There are multi-level degenerative changes of the thoracic spine. There are no acute findings of the upper abdomen. CT/Chest WITH Contrast IMPRESSION: The thyroid is heterogenous. It contains nodules. This should be further evaluated with ultrasound. This can be performed as an outpatient. Stable mediastinal lymph nodes. Diffuse bilateral groundglass infiltrates are improved since the study done yesterday. Electronically Signed: Ciro Kearney MD at 15:21 EDT ,
--- NOTE | 2021-07-09 13:25 | CT_ITS ---
STUDY: CT Abdomen W/ Contrast Injection 07/09/2021 2:01 PM REASON FOR EXAM: Female, 65 years old. Abdominal pain SCLC RESTAGING POST CHEMO Individualized dose optimization techniques were used for this CT. Radiation: CTDIvol = [23.44] mGy, DLP = [1876.95] mGy-cm COMPARISON: PET 2.9.22 and CTABD May 08 2021 7:57am TECHNIQUE: CT Abdomen W/ Contrast Injection IV 100mL Isovue-300 FINDINGS: There are atherosclerotic calcifications of visualized coronary arteries. Mild residual increased markings are seen in the posterior aspect of the right upper lobe abutting the fissure as well as in the superior segment of the right lower lobe. 10 mm hypodense lesion in the right lobe of the liver. It is 18 HU. SE 3 IM:22. 10 mm hypodense lesion in the right lateral lobe of the liver. SE 3 IM:33.Normal gallbladder and extrahepatic biliary system. There is mild splenomegaly. Normal pancreas. There is hepatomegaly with diffuse hepatic enlargement. Normal bilateral adrenal glands. There is a suspicious 13 mm hypodensity in the posterior right kidney. SE 3 IM: 54. It is 28 HU. This is not consistent for a cyst. ACR White Paper guidelines (Gold, et al. JACR 2018; 15(2):264-273) recommend MRI or CT without and with intravenous contrast. No acute findings of the left kidney. Normal visualized stomach. Normal small intestine. Stool throughout the colon. There is non-visualization of the appendix. There are calcifications of the abdominal aorta. This is consistent for atherosclerotic disease. There is NO abdominal aortic aneurysm. Vascular workup can be obtained based on clinical correlation. Normal inferior vena cava. Subcentimeter mesenteric lymph nodes. There is an umbilical hernia containing fat. Normal osseous structures. CT/Abdomen WITH IV Contrast IMPRESSION: (NOT LISTED IN ORDER OF SIGNIFICANCE) There is hepatomegaly with diffuse hepatic enlargement. Two stable hypodense liver lesions. These are noted to be PET negative. There is mild splenomegaly. There is a suspicious 13 mm hypodensity in the posterior right kidney. SE 3 IM: 54. It is 28 HU. This is not consistent for a cyst. This was noted to be PET negative. However, an FDG NON avid tumor cannot be excluded. ACR White Paper guidelines (Gold, et al. JACR 2018; 15(2):264-273) recommend MRI or CT without and with intravenous contrast. Stable right lung infiltrate. Other findings as above. Electronically Signed: Ciro Kearney MD at 14:11 EDT ,
== END | disposition home or self-care (01) ==
LOC: CT 13:07
PROVIDERS: Referring Provider Internal Medicine Hematology & Oncology; Visit Provider Internal Medicine Hematology & Oncology
DX: C34.81 Malignant neoplasm of overlapping sites of right bronchus and lung (principal)
CPT/HCPCS: 71260; 74160; Q9967; A4216

== ENCOUNTER → 2021-10-01 | Outpatient (CLI) | payer MEDICARE, SELFPAY ==
[2021-04-10 11:05] VITALS: BMI 52.1
--- NOTE | 2021-10-01 08:36 | CT_ITS ---
STUDY: CT CHEST T ABDOMEN WITH CONTRAST REASON FOR EXAM: Female, 65 years old. F/U SCLC ON RX RADIATION DOSAGE (If Supplied By Facility): CTDIvol = ( 22.12 ) mGy, DLP = ( 1882.89 ) mGycm TECHNIQUE: Transaxial imaging was performed following intravenous administration of IV 100mL Isovue-300. Multiplanar coronal and sagittal images were reformatted. Individualized dose optimization techniques were used for this CT. COMPARISON: Comparison is made with prior study dated 05/08/2021. FINDINGS: CHEST A right-sided portacatheter is seen with the tip in the superior vena cava. Stable heterogeneous enlargement of the thyroid involving both lobes as well as the isthmus. Stable small bilateral axillary lymph nodes. Persistent heterogeneous infiltrate in the superior segment of the right lower lobe. Mild residual groundglass appearance in the peripheral lateral aspect of the right upper lobe. This as improved as compared to prior study. There is no demonstrated pleural abnormality. Normal heart and pericardium. Stable 1.5 cm right paratracheal lymph node. Stable enlarged lymph nodes in the precarinal and subcarinal region extending into the right hilum. Normal unenhanced pulmonary arteries. Normal aorta arch and descending thoracic aorta. There are multi-level degenerative changes of the thoracic spine. ABDOMEN There is decreased attenuation of the liver consistent with steatosis. Hepatomegaly. Stable 1 some air cyst in the central anterior aspect of the right lobe. 1 cm cyst is also seen in the posterior aspect of the right hepatic lobe. Normal gallbladder and extrahepatic biliary system. Normal spleen. Normal pancreas. Normal bilateral adrenal glands. Normal right kidney. Normal left kidney. Normal visualized stomach. Normal small intestine. There are multiple colonic diverticula consistent with diverticulosis. There is non-visualization of the appendix. There is scattered atherosclerotic calcification of the abdominal aorta, without a demonstrated aneurysm. Normal inferior vena cava. Normal retroperitoneum. Normal abdominal wall. There are diffuse degenerative changes of the visualized lumbar spine. CT/CT Chest AND Abd W/ Contrast IMPRESSION: Mild improvement in the groundglass appearance in the right upper lobe with stable parenchymal density in the superior segment of the right lower lobe. Stable enlargement of the paratracheal as well as the precarinal and subcarinal lymph nodes as well as a right hilar lymph nodes. Mild hepatomegaly and fatty infiltration of the liver. Electronically Signed: Raza Keita MD at 10:18 EDT ,
[2021-10-01] MEDS: 0.9 % NaCl (Sterile) Posiflush 10 mL IV (08:55)
== END | disposition home or self-care (01) ==
LOC: CT 08:35
PROVIDERS: Referring Provider Internal Medicine Hematology & Oncology; Visit Provider Internal Medicine Hematology & Oncology
DX: C34.81 Malignant neoplasm of overlapping sites of right bronchus and lung (principal)
CPT/HCPCS: 71260; 74160; Q9967

== ENCOUNTER → 2021-11-19 | Outpatient (CLI) | payer MEDICARE, SELFPAY ==
[2021-04-10 11:05] VITALS: BMI 52.1
--- NOTE | 2021-11-19 14:26 | RAD_ITS ---
INDICATION: WHEEZING, COUGH EXAMINATION/TECHNIQUE: X-RAY - XR Chest 2 Views COMPARISON: 03/26/2021 FINDINGS: LIFE-SUPPORT AND LINES: 1. Median sternotomy wires without change. 2. Port-A-Cath without change. HEART AND VESSELS: Cardiac silhouette is unchanged. There is mild interstitial prominence without julien congestive failure. No consolidation, no effusion. LUNGS AND PLEURAL SPACES: Interstitial prominence without congestive failure consolidation or effusion No pulmonary mass is noted. MEDIASTINUM AND HILAR REGIONS: No masses adenopathy noted. No areas of calcification. Visualized upper airway is normal in position. BONY ELEMENTS: No acute bony changes noted. RAD/Chest PA and Lateral IMPRESSION: 1. Postop changes in life support without interval change. 2. No evidence of pneumothorax. 3. Diffuse interstitial prominence,, no julien congestive failure consolidation or effusion. Electronically Signed: David Heck MD at 17:22 EDT ,
== END | disposition home or self-care (01) ==
LOC: RAD 14:24
PROVIDERS: Referring Provider Nurse Practitioner Family; Visit Provider Nurse Practitioner Family
DX: R05.9 Cough, unspecified (principal)
CPT/HCPCS: 71046

== ENCOUNTER → 2021-12-04 | Outpatient (CLI) | payer MEDICARE, SELFPAY ==
[2021-04-10 11:05] VITALS: BMI 52.1
--- NOTE | 2021-12-04 08:30 | CT_ITS ---
STUDY: CT CHEST T ABDOMEN WITH CONTRAST REASON FOR EXAM: Female, 65 years old. F/U SCLC RADIATION DOSAGE (If Supplied By Facility): CTDIvol = ( 22.13 ) mGy, DLP = ( 1973.13 ) mGycm TECHNIQUE: Transaxial imaging was performed following intravenous administration of IV 100mL Isovue-370. Multiplanar coronal and sagittal images were reformatted. Individualized dose optimization techniques were used for this CT. COMPARISON: Comparison is made with prior study 10/01/2021. FINDINGS: CHEST A right-sided tu catheter seen with the tip in the superior vena cava. Stable heterogeneous enlargement and appearance of the right and left lobes of the thyroid gland. Mild increased markings in the right middle lobe. The previously seen increased markings in the superior segment of the right lower lobe have improved. Mild increased markings are also seen at the right lung base in the posterior medial segment of the right lower lobe. There is evidence of a 1.9 cm x 1.5 cm pleural-based nodule as well as a 0.7 cm pleural-based nodule in the right lower lobe. These are new as compared to prior study. There is no demonstrated pleural abnormality. Sternal cerclage wires and vascular clips are present from a prior sternotomy and coronary artery bypass graft procedure (CABG). There are calcifications of the coronary arteries. Since prior study, there has been progressive enlargement of the right hilar and infrahilar lymph nodes as well as the subcarinal lymph nodes. This causes narrowing of the right interlobar bronchus. Normal unenhanced pulmonary arteries. Normal aorta arch and descending thoracic aorta. There are multi-level degenerative changes of the thoracic spine. ABDOMEN There is decreased attenuation of the liver consistent with steatosis. Hepatomegaly. Stable 2 cm x 1.8 cm hypodensity in the anterior aspect of the right lobe of the liver adjacent to the falciform ligament. Stable 1 some mucous cyst in the posterior aspect of the right lobe of the liver. Normal gallbladder and extrahepatic biliary system. Normal spleen. Normal pancreas. Normal bilateral adrenal glands. Normal right kidney. Normal left kidney. Normal visualized stomach. Normal small intestine. There are multiple colonic diverticula consistent with diverticulosis. The appendix is visualized and appears normal. There is scattered atherosclerotic calcification of the abdominal aorta, without a demonstrated aneurysm. Normal inferior vena cava. Normal retroperitoneum. Normal abdominal wall. There are diffuse degenerative changes of the visualized lumbar spine. CT/CT Chest AND Abd W/ Contrast IMPRESSION: Since prior study, there has been enlargement of the right hilar and infrahilar lymph nodes as well as the subcarinal lymph nodes. 1.9 cm x 1.5 cm pleural-based nodule as well as a 0.7 cm pleural-based nodule in the posterior medial segment of the right lower lobe. Electronically Signed: Raza Keita MD at 14:37 EDT ,
[2021-12-04] MEDS: 0.9% Saline Lock 10 ML Syringe IV (08:40)
== END | disposition home or self-care (01) ==
LOC: CT 08:16
PROVIDERS: Referring Provider Internal Medicine Hematology & Oncology; Visit Provider Internal Medicine Hematology & Oncology
DX: C34.81 Malignant neoplasm of overlapping sites of right bronchus and lung (principal)
CPT/HCPCS: 71260; 74160; Q9967; A4216

== ENCOUNTER 2021-12-25 12:15 | Inpatient (IN) | payer MEDICARE, SELFPAY ==
[2021-04-10 11:05] VITALS: BMI 52.1
[2021-12-25] VITALS (19 sets, daily range): BP systolic 101–134; BP diastolic 62–85; PULSE 89–105; RESP 17–30; TEMP 36.2–37.1; O2SAT 92–96; BMI 48.6; BMI 46.7
--- NOTE | 2021-12-25 13:30 | RAD_ITS ---
STUDY: X-RAY CHEST REASON FOR EXAM: Female, 66 years old. Cough TECHNIQUE: Single AP portable view of the chest. COMPARISON: Comparison is made with prior study dated 11/19/2021. FINDINGS: A right-sided portacatheter is seen with the tip in the superior vena cava. EKG electrodes are seen. Surgical clips are seen in the right axillary region. There now is evidence of a right paratracheal and right hilar mass with consolidation and/or atelectasis in the right upper lobe. There is evidence of a mild degree of vascular congestion. Sternal cerclage wires and vascular clips are present from a prior sternotomy and coronary artery bypass graft procedure (CABG). Normal mediastinum and phu. Normal visualized pulmonary arteries. Normal visualized aortic arch and descending thoracic aorta. Normal visualized thoracic spine. Normal visualized ribs, clavicles, and shoulders. There is no demonstrated abnormality of the visualized soft tissue structures of the upper abdomen. RAD/Chest 1 View (Portable) IMPRESSION: Right paratracheal and right hilar mass with the consolidation and/or postobstructive atelectasis in the right upper lobe. Electronically Signed: Raza Keita MD at 14:32 EST ,
--- NOTE | 2021-12-25 13:33 | ED.VIS.DYS ---
HPI History of Present Illness Chief Complaint: Shortness of Breath Narrative Narrative: 66-year-old female with history of COPD, pleural effusion, non-small cell lung cancer status post chemotherapy which was from February to May. She states that she had a reaction to immunotherapy in the past and had to be on 3 months of tapering steroids. She states he stopped these about last week and this is when her symptoms of shortness of breath started. She states she does not have specific chest pain unless she is coughing. She does describe dyspnea and dyspnea with exertion. She states she normally wears oxygen when she sleeps and only requires 2 L for this. Patient states that she sees Dr. Figueredo for her lung cancer. No current chemotherapy. She does state that she has a history of blood clots in the past when she was on control. She is not anticoagulated currently. No fevers, chills, body aches. No nausea or vomiting. She denies abdominal pain. No urinary or vaginal complaints. She states that she does not feel unwell other than short of breath. [facility] Medical History Abdominal panniculus, symptomatic Abnormal stress test Abscess of abdominal wall Abscess of left breast NATHALIE (acute kidney injury) Anxiety Anxiety state Atherosclerotic heart disease of [place] coronary artery without angina pectoris CINV (chemotherapy-induced nausea and vomiting) Cough Depression Diarrhea Diverticulosis Encephalitis Essential hypertension History of DVT (deep vein thrombosis) History of uterine cancer Hypokalemia Iron deficiency anemia Malignant pleural effusion Morbid obesity Necrotizing soft tissue infection Old myocardial infarction Open wound of right lower quadrant of abdominal wall without penetration into peritoneal cavity Pure hypercholesterolemia Regional lymph node metastasis present Tobacco use disorder Traumatic hematoma of abdominal wall Traumatic hematoma of female breast Type 2 diabetes mellitus Ulcer of abdomen wall with fat layer exposed Wheezing Wound of left breast Home Medications sertraline 100 mg tablet 100 mg PO DAILY 07/02/17 [History Last Taken 08/17/18] isosorbide mononitrate 30 mg tablet,extended release 24 hr 30 mg PO QAM #30 tabs 07/08/17 [Rx Last Taken 08/18/18] bupropion HCl 300 mg 24 hr tablet, extended release 300 mg PO DAILY 07/20/18 [History Last Taken 08/18/18] clopidogrel 75 mg tablet 75 mg PO DAILY 08/18/18 [History Last Taken 08/18/18] simvastatin 20 mg tablet 20 mg PO QHS cholesterol 08/18/18 [History Last Taken 08/17/18] losartan 100 mg tablet 100 mg PO DAILY 10/31/19 [History Last Taken Unknown] carvedilol 6.25 mg tablet 6.25 mg PO BID 12/08/20 [History Last Taken Unknown] ondansetron HCl 4 mg tablet 8 mg PO Q8H PRN nausea and vomiting #20 tabs 03/12/21 [Rx Last Taken Unknown] lorazepam 0.5 mg tablet 0.5 mg PO Q6H PRN PRN Anxiety 03/17/21 [History Last Taken Unknown] hydrochlorothiazide 25 mg tablet 25 mg PO DAILY 04/23/21 [History Last Taken Unknown] lidocaine-prilocaine 2.5 %-2.5 % topical cream 1 applic topical ONCE PRN port access 30 days #30 grams 05/07/21 [Rx Last Taken Unknown] pantoprazole 20 mg tablet,delayed release (Protonix) 20 mg PO DAILY #30 tabs 10/17/21 [Rx Last Taken Unknown] prednisone 20 mg tablet 80 mg PO DAILY #90 tabs 10/23/21 [Rx Last Taken Unknown] potassium chloride 20 mEq tablet,extended release(part/cryst) 40 meq PO DAILY #3 tabs 10/29/21 [Rx Last Taken Unknown] fluticasone fur. 200 mcg-umeclid 62.5 mcg-vilant 25 mcg inhalat.powder (Trelegy Ellipta) 1 inh inhalation DAILY #60 ea 11/19/21 [Rx Last Taken Unknown] loperamide 2 mg tablet (Imodium A-D) 2 mg PO Q6H PRN Diarrhea 11/19/21 [History Last Taken Unknown] Allergy/AdvReac Type Severity Reaction Status Date / Time cephalexin [From Keflex] Allergy Severe Rash Verified 12/25/21 12:17 levofloxacin [From Levaquin] Allergy Severe Rash Verified 12/25/21 12:17 niacin Allergy Severe Rash Verified 12/25/21 12:17 Penicillins Allergy Severe Anaphylaxis Verified 12/25/21 12:17 Sulfa (Sulfonamide Allergy Severe Rash Verified 12/25/21 12:17 Antibiotics) citalopram [From Celexa] AdvReac Severe Rash Verified 12/25/21 12:17 Estrogens AdvReac Severe blood clots Verified 12/25/21 12:17 rosuvastatin [From Crestor] AdvReac Severe myalgias Verified 12/25/21 12:17 oral contraceptives AdvReac Severe Unknown Uncoded 12/25/21 12:17 Family History Father CAD (coronary artery disease) Cancer Prostate and Bladder Mother CVA (cerebral vascular accident) Hypertension Surgical History Aortocoronary bypass status (~10/31/11) History of tonsillectomy History of total hysterectomy History of total mastectomy of left breast (~08/2018) History of tubal ligation Social History household members: spouse Smoking Status: Current every day smoker tobacco type: cigarettes Electronic Cigarette Use: not used second hand exposure: Yes quit status: considering quitting alcohol intake: never substance use type: does not use ROS ROS ED Constitutional Constitutional ED: Denies chills or fever(s) Eyes Eyes: Denies change in vision or diplopia ENT ENT ED: Denies rhinorrhea or sore throat Cardiovascular Cardiovascular: Denies chest pain Respiratory/Chest Respiratory/Chest: Reports dyspnea and dyspnea on exertion Gastrointestinal Gastrointestinal: Denies abdominal pain, nausea or vomiting Genitourinary Genitourinary ED: Denies dysuria or hematuria Musculoskeletal Musculoskeletal: Denies myalgias Integumentary Denies abscess Neurologic Neurologic: Denies headache(s) Psychiatric Psychiatric: Denies anxiety or depression EXAM Physical Exam Const Vital Signs: 12/25/21 12:17 12/25/21 12:24 12/25/21 12:21 Temperature 98.6 F 98.6 F Temperature Source Temporal Temporal Pulse Rate 104 H 104 H Respiratory Rate 25 H 25 H Respiratory Effort Short of Breath Labored Accessory Muscle Use Nasal Flaring Retracting Head [place] Blood Pressure 133/78 H 133/78 H Blood Pressure Mean 96 96 Pulse Ox 95 95 Oxygen Delivery Method Non-Rebreather Non-Rebreather Non-Rebreather Oxygen Flow Rate (L/min) 15 15 Fraction of Inspired Oxygen (FIO2) 12/25/21 13:29 12/25/21 13:58 12/25/21 14:06 Temperature 97.8 F Temperature Source Temporal Pulse Rate 101 H 101 H 100 Respiratory Rate 20 H 18 30 H Respiratory Effort Blood Pressure 134/67 H 134/67 H 106/72 Blood Pressure Mean 89 89 83 Pulse Ox 95 92 92 Oxygen Delivery Method Room Air High Flow Nasal Cannula Oxygen Flow Rate (L/min) 12 2 Fraction of Inspired Oxygen (FIO2) 12/25/21 13:39 12/25/21 13:39 12/25/21 13:39 Temperature Temperature Source Pulse Rate 101 H Respiratory Rate 23 H 23 H Respiratory Effort Short of Breath Labored Blood Pressure Blood Pressure Mean Pulse Ox 95 95 Oxygen Delivery Method Non-Rebreather Non-Rebreather Oxygen Flow Rate (L/min) 15 15 Fraction of Inspired Oxygen (FIO2) 100 100 12/25/21 15:13 Temperature Temperature Source Pulse Rate 104 H Respiratory Rate 25 H Respiratory Effort Blood Pressure 108/85 H Blood Pressure Mean 92 Pulse Ox 92 Oxygen Delivery Method High Flow Oxygen Flow Rate (L/min) 12 Fraction of Inspired Oxygen (FIO2) Positive obese Constitutional Narrative: On 15 L nonrebreather. Speaking in full sentences. General Appearance ED: Negative for pallor Nutritional Appearance: obese HEENT Reports dry mucous membranes atraumatic Mouth ED: Yes dry mucous membranes Mouth: dry mucous membranes Eyes PERRL and EOMs intact bilaterally General Eye ED: Negative for pale conjunctiva or scleral icterus Resp Auscultation: wheezes throughout Cardio regular rhythm Rate: tachycardic GI non-tender Neuro oriented x3 and CN's II-XII intact bilaterally Sensorium / Orientation: alert Motor Exam: strength 5/5 throughout Psych mental status grossly normal Skin no wounds and skin turgor normal General Skin Exam: Negative for jaundice or pallor MDM MDM MDM Narrative Medical decision making narrative: Patient presenting with shortness of breath. After she was placed on oxygen she appears to be doing a lot better. She states that she feels much better currently. She does not report fever, chills, body aches. She states she feels well other than having difficulty breathing. EKG was obtained and on my interpretation this shows sinus tachycardia with a ventricular rate of 101 bpm with first-degree AV block. Chest x-ray my interpretation shows a right paratracheal and hilar mass. Radiologist interprets this and agrees and states there may be postobstructive atelectasis in the right upper lobe. CBC shows slight leukocytosis at 11.6, hemoglobin stable 15. Platelets normal at 96. Creatinine at baseline. Potassium noted to be 2.9 and she was given 40 mill equivalents of potassium. She was given breathing treatments initially because she had some slight wheezing. She was also given Solu-Medrol. On reevaluation at 315 she states she feels a lot better after breathing treatments and oxygen therapy. Her high-sensitivity troponin came back at 51. BNP is 81.7. I obtained a CTA due to history of blood clots and lung cancer and this does not identify any PE or dissection. This does show progressive enlargement of the right paratracheal and right hilar masses with postobstructive volume loss and pneumonitis in the right lower lobe. Increased markings are also seen in the right upper lobe. Patchy airspace disease also seen in the left hemithorax with evidence of pulmonary nodules. Given her oxygen requirement she will need to be admitted to the hospital. I spoke with the hospitalist about the patient she will be transported to the medical floor. Impression: 1. History of small cell carcinoma 2. Hypoxic respiratory failure 3. Hypokalemia 4. COPD exacerbation Lab Data Labs: Laboratory Results - last 24 hr 12/25/21 12/25/21 12/25/21 13:35 13:35 13:35 WBC 11.6 H RBC 6.27 H Hgb 15.0 Hct 48.1 H MCV 76.7 L MCH 23.9 L MCHC 31.2 L RDW Std Deviation 47.4 H RDW Coeff of Melina 18.5 H Plt Count 186 MPV 10.9 Immature Gran % (Auto) 0.600 Neut % (Auto) 86.4 H Lymph % (Auto) 4.3 L [place] % (Auto) 8.0 Eos % (Auto) 0.4 Baso % (Auto) 0.3 Absolute Neuts (auto) 10.1 H Absolute Lymphs (auto) 0.50 L Nucleated RBC % 0 Platelet Estimate ADEQUATE RBC Morphology NORM C+C Sodium 134 L Potassium 2.9 L Chloride 95 L Carbon Dioxide 31.0 Anion Gap 8 BUN 14 Creatinine 1.06 H Estim Creat Clear Calc 43.19 Est GFR (MDRD) Af Amer 67 Est GFR (MDRD) Non-Af 55 L BUN/Creatinine Ratio 13.2 Glucose 91 Calcium 10.2 H Troponin I High Sens 51 B-Natriuretic Peptide 81.7 Radiography Diagnostic Testing: Clinical Impression(s) from Imaging Studies Chest X-Ray 12/25/21 13:30 IMPRESSION: Right paratracheal and right hilar mass with the consolidation and/or postobstructive atelectasis in the right upper lobe. Electronically Signed: Raza Keita MD at 14:32 EST , Chest CTA 12/25/21 13:36 IMPRESSION: Progressive enlargement of the right paratracheal and right hilar masses with postobstructive volume loss and pneumonitis in the right lower lobe. Increased markings are also seen in the right upper lobe. Patchy airspace disease also seen in the left hemithorax with evidence of pulmonary nodules. No evidence of pulmonary embolism. Electronically Signed: Raza Keita MD at 14:54 EST , Discharge Plan Triage Chief Complaint: Shortness of Breath ED Provider: Karthikeyan Steel Dx/Rx/DC Orders Prescriptions: No Action sertraline 100 mg tablet 100 mg PO DAILY hydrochlorothiazide 25 mg tablet 25 mg PO DAILY lidocaine-prilocaine 2.5-2.5 % cream 1 applic topical ONCE PRN (Reason: port access) 30 Days Qty: 30 2RF potassium chloride 20 mEq tablet,ER particles/crystals 40 meq PO DAILY Qty: 3 0RF loperamide [Imodium A-D] 2 mg tablet 2 mg PO Q6H PRN (Reason: Diarrhea) Label Comments: taking 1-2 daily pantoprazole [Protonix] 20 mg tablet,delayed release (DR/EC) 20 mg PO DAILY Qty: 30 2RF bupropion HCl 300 MG tablet extended release 24 hr 300 mg PO DAILY clopidogrel 75 MG tablet 75 mg PO DAILY Label Comments: TAKE 1 TABLET BY MOUTH EVERY DAY simvastatin 20 MG tablet 20 mg PO QHS losartan 100 MG tablet 100 mg PO DAILY carvedilol 6.25 mg tablet 6.25 mg PO BID ondansetron HCl 4 mg tablet 8 mg PO Q8H PRN (Reason: nausea and vomiting) Qty: 20 0RF lorazepam 0.5 mg tablet 0.5 mg PO Q6H PRN PRN (Reason: Anxiety) Label Comments: TAKE 1 TABLET BY MOUTH EVERY 6 TO 8 HOURS NEEDED isosorbide mononitrate 30 mg tablet extended release 24 hr 30 mg PO QAM Qty: 30 12RF prednisone 20 mg tablet 80 mg PO DAILY Qty: 90 0RF Trelegy Ellipta 200-62.5-25 mcg blister with device 1 inh inhalation DAILY Qty: 60 6RF Primary Care Provider: Manuel Mortensen Referrals: Manuel Mortensen [Primary Care Provider] -
--- NOTE | 2021-12-25 13:36 | CT_ITS ---
STUDY: CTA CHEST REASON FOR EXAM: Female, 66 years old. Hypoxia. Respiratory failure. History of lung cancer. RADIATION DOSAGE (If Supplied By Facility): CTDIvol = ( 12.66 ) mGy, DLP = ( 505.32 ) mGycm TECHNIQUE: The examination was performed with the intravenous administration of IV 100mL [id number]-[id number]. Post-processing of the angiographic images was performed, with multiplanar reformation and 3D reconstruction. Individualized dose optimization techniques were used for this CT. COMPARISON: Comparison is made with prior study dated 12/04/2021. FINDINGS: A right-sided portacatheter is seen. Normal enhancement of the main pulmonary artery and right and left pulmonary arteries. Normal enhancement of the bilateral peripheral pulmonary arteries. There is no demonstrated pulmonary embolism. Normal thoracic aorta and visualized great vessels. There is no demonstrated aortic dissection. Sternal cerclage wires and vascular clips are present from a prior sternotomy and coronary artery bypass graft procedure (CABG). There are calcifications of the coronary arteries. There is evidence of a right paratracheal soft tissue mass. There is also evidence of right hilar mass with findings suggestive of a postobstructive pneumonitis in the right lower lobe. There is narrowing of the right intermediate stem bronchus due to the enlarging mass. There is volume loss in the right hemithorax. There is evidence of atelectasis and/or infiltrate in the right lower lobe with a tiny right pleural effusion. There is also evidence of the finding suggesting post obstructive pneumonitis in the posterior segment of the right lower lobe. Patchy airspace disease is also seen in the left hemithorax. There is a 9.3 mm noncalcified nodule in the posterior medial aspect of the left upper lobe. There is also evidence of a 8 mm pleural-based nodule in the left lower lobe. Normal chest wall structures. There are degenerative changes of thoracic spine. Normal visualized upper abdomen. CT/CTA Chest W/WO Contrast IMPRESSION: Progressive enlargement of the right paratracheal and right hilar masses with postobstructive volume loss and pneumonitis in the right lower lobe. Increased markings are also seen in the right upper lobe. Patchy airspace disease also seen in the left hemithorax with evidence of pulmonary nodules. No evidence of pulmonary embolism. Electronically Signed: Raza Keita MD at 14:54 EST ,
[2021-12-25] MEDS: Ipratropium/Albuterol Sulfate 3 ML AMPUL.NEB INHALATION ×2 (13:38→20:01)
[2021-12-25] MEDS: Albuterol 2.5 MG/3 ML VIAL.NEB. INHALATION (13:38)
[2021-12-25 13:44] LABS: Absolute Neutrophil Count 10.1 X10^3/uL (2.0-7.7); Basophil# 0.04 X10^3/uL; Basophil% 0.3 % (0-1); Eosinophil# 0.05 X10^3/uL; Eosinophils% 0.4 % (0-5); Hematocrit 48.1 % (37-47); Lymphocyte % 4.3 % (19-41); Mean Corp Hgb Conc 31.2 g/dL (32-36); Mean Corpuscular Hgb 23.9 pg (27.0-32.0); Mean Corpuscular Volume 76.7 fL (81-99); Mean Platelet Vol. 10.9 fl (6.2-12.0); Monocyte# 0.93 X10^3/uL; NRBC Flagged by Analyzer 0 % (0-5); Neutrophil # 10.05 X10^3/uL (2.7-7.7); Neutrophil % 86.4 % (47-70); POSITIVE DIFFERENTIAL YES; Platelet Count 186 K/mm3 (150-450); RBC Distribution Width CV 18.5 % (11.6-14.6); RBC Distribution Width SD 47.4 fl (35.1-43.9); Red Blood Count 6.27 M/mm3 (4.2-5.4); White Blood Count 11.6 K/mm3 (4.4-11.0)
[2021-12-25 13:48] LABS: Differential Indicated SCAN CRITERIA MET
[2021-12-25] MEDS: MethylPREDNISolone 125 MG/2 ML Vial IV (13:53)
[2021-12-25 14:00] LABS: Anion Gap 8 (5-15); BUN 14 mg/dL (7-18); BUN/Creat Ratio 13.2 RATIO (10-20); Calcium,Total 10.2 mg/dL (8.5-10.1); Chloride 95 mmol/L (98-107); Creatinine, Serum 1.06 mg/dL (0.55-1.02); EST Glomerular Filtration Rate 55 mL/min (>60); Est Glom Filt Rate - Afr Amer 67 mL/min (>60); Estimated Creatinine Clearance 43.19 ml/min; Glucose 91 mg/dL (74-106); Potassium 2.9 mmol/L (3.5-5.1); Sodium Level 134 mmol/L (136-145); Troponin-I HS 51 pg/mL (3.0-54.0)
[2021-12-25 14:05] LABS: BNP,B-Type NATRIURETIC PEPTIDE 81.7 pg/mL (0-100)
[2021-12-25 14:08] LABS: Platelet Estimate ADEQUATE (ADEQ); Red Cell Morphology NORM C+C NORMAL (NORM C&C)
--- NOTE | 2021-12-25 15:25 | NURSING ---
PCU [facility] HYPOXIC RESP FAILURE
[2021-12-25] MEDS: Potassium Chloride Oral Tablet 20 MEQ 40 MEQ PO ×2 (15:32→18:29)
--- NOTE | 2021-12-25 16:28 | HP.PCM.HOS_ITS ---
HPI - General General Date of Admission: 12/25/21 Date of Service: 12/25/21 Chief Complaint: Shortness of breath HPI Narrative OLENA DEGROOT, is a 66 F with a history of small cell lung cancer in the right lung on atezolizumab, tobacco use, and hypertension who presented to [facility] 12/25 with 1 week of increasing shortness of breath. She reports that for her lung cancer she was on atezolizumab but 3 months ago was having severe diarrhea/called in an allergic reaction and was taken off and placed on high-dose prednisone which was tapered off over 3 months. She has been off for a little over a week. And she also has resumed the atezolizumab. She spoke with her oncologist Dr. Zee who felt it was probably because she was done with her prednisone and supportive care provided. She is continue to worsen however, and has had a cough so she presented today. She was hypoxic and required 15 L of O2. Was given steroids breathing treatment and placed on high flow O2 and symptoms improved significantly. CT shows progression of lung mass as well as what appears to be pneumonitis and likely pneumonia. Hospitalist consulted for admission. Upon speaking with Ms. Degroot she reports her shortness of breath is still present but significantly better. She wears 2 L of O2 as needed at home and over the past week has required this consistently but it was no longer helpful even turned up to 3 L. Presently more comfortable. Reports weight loss since the diagnosis of her cancer, no fevers or chills. No recent sick contacts. Does have some intermittent sore throat and stuffy nose. Has had slight diarrhea but nothing like her previous bout, feels a lot of it is due to her anxiety. Worsening vision since February but no other acute complaints. [facility] Medical History Abdominal panniculus, symptomatic Abnormal stress test Abscess of abdominal wall Abscess of left breast NATHALIE (acute kidney injury) Anxiety Anxiety state Atherosclerotic heart disease of [place] coronary artery without angina pectoris CINV (chemotherapy-induced nausea and vomiting) Cough Depression Diarrhea Diverticulosis Encephalitis Essential hypertension History of DVT (deep vein thrombosis) History of uterine cancer Hypokalemia Iron deficiency anemia Malignant pleural effusion Morbid obesity Necrotizing soft tissue infection Old myocardial infarction Open wound of right lower quadrant of abdominal wall without penetration into peritoneal cavity Pure hypercholesterolemia Regional lymph node metastasis present Tobacco use disorder Traumatic hematoma of abdominal wall Traumatic hematoma of female breast Type 2 diabetes mellitus Ulcer of abdomen wall with fat layer exposed Wheezing Wound of left breast Home Medications sertraline 100 mg tablet 100 mg PO DAILY DEPRESSION 07/02/17 [History Last Taken 12/24/21] bupropion HCl 300 mg 24 hr tablet, extended release 300 mg PO DAILY DEPRESSION 07/20/18 [History Last Taken 12/24/21] clopidogrel 75 mg tablet 75 mg PO DAILY BLOOD THINNER 08/18/18 [History Last Taken 12/24/21] simvastatin 20 mg tablet 20 mg PO QHS cholesterol 08/18/18 [History Last Taken 12/24/21] losartan 100 mg tablet 100 mg PO DAILY BLOOD PRESSURE 10/31/19 [History Last Taken 12/24/21] carvedilol 6.25 mg tablet 6.25 mg PO BID BLOOD PRESSURE 12/08/20 [History Last Taken 12/24/21] ondansetron HCl 4 mg tablet 8 mg PO Q8H PRN nausea and vomiting #20 tabs 03/12/21 [Rx Last Taken Unknown] lorazepam 0.5 mg tablet 0.5 mg PO Q6H PRN PRN Anxiety 03/17/21 [History Last Taken Unknown] hydrochlorothiazide 25 mg tablet 25 mg PO MOTUTHFRSA BLOOD PRESSURE 04/23/21 [History Last Taken 12/24/21] fluticasone fur. 200 mcg-umeclid 62.5 mcg-vilant 25 mcg inhalat.powder (Trelegy Ellipta) 1 inh inhalation DAILY #60 ea 11/19/21 [Rx Last Taken 12/24/21] loperamide 2 mg tablet (Imodium A-D) 2 mg PO Q6H PRN Diarrhea 11/19/21 [History Last Taken 12/24/21] isosorbide mononitrate 30 mg tablet,extended release 24 hr 30 mg PO DAILY CHEST PAIN 12/25/21 [History Last Taken 12/24/21] pantoprazole 20 mg tablet,delayed release (Protonix) 20 mg PO DAILY ACID REFLUX 12/25/21 [History Last Taken 12/24/21] Allergy/AdvReac Type Severity Reaction Status Date / Time cephalexin [From Keflex] Allergy Severe Rash Verified 12/25/21 12:17 levofloxacin [From Levaquin] Allergy Severe Rash Verified 12/25/21 12:17 niacin Allergy Severe Rash Verified 12/25/21 12:17 Penicillins Allergy Severe Anaphylaxis Verified 12/25/21 12:17 Sulfa (Sulfonamide Allergy Severe Rash Verified 12/25/21 12:17 Antibiotics) citalopram [From Celexa] AdvReac Severe Rash Verified 12/25/21 12:17 Estrogens AdvReac Severe blood clots Verified 12/25/21 12:17 rosuvastatin [From Crestor] AdvReac Severe myalgias Verified 12/25/21 12:17 oral contraceptives AdvReac Severe Unknown Uncoded 12/25/21 12:17 Family History Father CAD (coronary artery disease) Cancer Prostate and Bladder Mother CVA (cerebral vascular accident) Hypertension Surgical History Aortocoronary bypass status (~10/31/11) History of tonsillectomy History of total hysterectomy History of total mastectomy of left breast (~08/2018) History of tubal ligation Social History household members: spouse Smoking Status: Current every day smoker tobacco type: cigarettes Electronic Cigarette Use: not used second hand exposure: Yes quit status: considering quitting alcohol intake: never substance use type: does not use ROS Constitutional Constitutional: Reports other Details: Progressive weight loss over the past year ; Denies chills, fever(s) or night sweats Eyes Eyes: Reports change in vision ENT HEENT: Reports other Details: Intermittent nasal congestion and sore throat ; Denies headache(s) Cardiovascular Cardiovascular: Denies chest pain or palpitations Respiratory/Chest Respiratory/Chest: Reports other Details: Has been having cough and creasing shortness of breath Gastrointestinal Gastrointestinal: Reports other Details: Has had slight diarrhea ; Denies abdominal pain Genitourinary Genitourinary: Reports other Details: denies changes in urination Musculoskeletal Musculoskeletal: Denies joint pain Neurologic Neurologic: Denies dizziness, focal weakness, headache(s), numbness or tingling Psychiatric Psychiatric: Reports anxiety Hematologic/Lymphatic Hematologic/Lymphatic: Denies easy bleeding Allergic/Immunologic Allergic/Immunologic: Reports other Details: denies rashes Vital Signs Vital Signs Vital Signs: 11/16/22 12:17 12/25/21 12:24 12/25/21 12:21 Temperature 98.6 F 98.6 F Temperature Source Temporal Temporal Pulse Rate 104 H 104 H Respiratory Rate 25 H 25 H Respiratory Effort Short of Breath Labored Accessory Muscle Use Nasal Flaring Retracting Head Bobbing Blood Pressure 133/78 H 133/78 H Blood Pressure Mean 96 96 Blood Pressure Source Blood Pressure Position Blood Pressure Location Pulse Ox 95 95 Oxygen Delivery Method Non-Rebreather Non-Rebreather Non-Rebreather Oxygen Flow Rate (L/min) 15 15 Fraction of Inspired Oxygen (FIO2) 12/25/21 13:29 12/25/21 13:58 12/25/21 14:06 Temperature 97.8 F Temperature Source Temporal Pulse Rate 101 H 101 H 100 Respiratory Rate 20 H 18 30 H Respiratory Effort Blood Pressure 134/67 H 134/67 H 106/72 Blood Pressure Mean 89 89 83 Blood Pressure Source Blood Pressure Position Blood Pressure Location Pulse Ox 95 92 92 Oxygen Delivery Method Room Air High Flow Nasal Cannula Oxygen Flow Rate (L/min) 12 2 Fraction of Inspired Oxygen (FIO2) 12/25/21 13:39 12/25/21 13:39 12/25/21 13:39 Temperature Temperature Source Pulse Rate 101 H Respiratory Rate 23 H 23 H Respiratory Effort Short of Breath Labored Blood Pressure Blood Pressure Mean Blood Pressure Source Blood Pressure Position Blood Pressure Location Pulse Ox 95 95 Oxygen Delivery Method Non-Rebreather Non-Rebreather Oxygen Flow Rate (L/min) 15 15 Fraction of Inspired Oxygen (FIO2) 100 100 12/25/21 13:55 12/25/21 15:13 12/25/21 15:25 Temperature 98.6 F Temperature Source Oral Pulse Rate 104 H 105 H Respiratory Rate 25 H 20 H Respiratory Effort Blood Pressure 108/85 H 108/85 H Blood Pressure Mean 92 92 Blood Pressure Source Blood Pressure Position Blood Pressure Location Pulse Ox 93 92 92 Oxygen Delivery Method High Flow High Flow High Flow Oxygen Flow Rate (L/min) 12 12 12 Fraction of Inspired Oxygen (FIO2) 12/25/21 16:15 Temperature 98.7 F Temperature Source Temporal Pulse Rate 105 H Respiratory Rate 17 Respiratory Effort Blood Pressure 115/83 H Blood Pressure Mean 93 Blood Pressure Source Monitor Blood Pressure Position Sitting Blood Pressure Location Right Forearm Pulse Ox 92 Oxygen Delivery Method Nasal Cannula Oxygen Flow Rate (L/min) 15 Fraction of Inspired Oxygen (FIO2) Weight Weight: 119.7 kg Body Mass Index (BMI) 46.7 Physical Exam Const alert Constitutional Narrative: Oriented HEENT normocephalic and head/scalp atraumatic Eyes Eyes Narrative: EOM grossly intact, anicteric Neck supple Resp Resp Narrative: Not conversationally dyspneic, sitting comfortably with high flow O2 in place, diminished breath sounds diffusely, no wheezing appreciated Cardio regular rate and regular rhythm GI soft to palpation, non-tender and non-distended Extremity Extremity Narrative: No edema appreciated Skin Skin Narrative: Thickened skin on bilateral lower extremities Neuro moves all extremities Neuro Narrative: No overt focal deficits appreciated Psych Psych Narrative: Tearful Results Lab / Micro Data Result Diagrams: 12/25/21 13:35 12/25/21 13:35 Labs: Laboratory Results - last 24 hr 12/25/21 13:35: WBC 11.6 H, RBC 6.27 H, Hgb 15.0, Hct 48.1 H, MCV 76.7 L, MCH 23.9 L, MCHC 31.2 L, RDW Std Deviation 47.4 H, RDW Coeff of Melina 18.5 H, Plt Count 186, MPV 10.9, Immature Gran % (Auto) 0.600, Neut % (Auto) 86.4 H, Lymph % (Auto) 4.3 L, [place] % (Auto) 8.0, Eos % (Auto) 0.4, Baso % (Auto) 0.3, Absolute Neuts (auto) 10.1 H, Absolute Lymphs (auto) 0.50 L, Nucleated RBC % 0, Platelet Estimate ADEQUATE, RBC Morphology NORM C+C 12/25/21 13:35: Sodium 134 L, Potassium 2.9 L, Chloride 95 L, Carbon Dioxide 31.0, Anion Gap 8, BUN 14, Creatinine 1.06 H, Estim Creat Clear Calc 43.19, Est GFR (MDRD) Af Amer 67, Est GFR (MDRD) Non-Af 55 L, BUN/Creatinine Ratio 13.2, Glucose 91, Calcium 10.2 H, Troponin I High Sens 51 12/25/21 13:35: B-Natriuretic Peptide 81.7 Radiology Impression Chest X-Ray 12/25/21 13:30 IMPRESSION: Right paratracheal and right hilar mass with the consolidation and/or postobstructive atelectasis in the right upper lobe. Electronically Signed: Raza Keita MD at 14:32 EST , Chest CTA 12/25/21 13:36 IMPRESSION: Progressive enlargement of the right paratracheal and right hilar masses with postobstructive volume loss and pneumonitis in the right lower lobe. Increased markings are also seen in the right upper lobe. Patchy airspace disease also seen in the left hemithorax with evidence of pulmonary nodules. No evidence of pulmonary embolism. Electronically Signed: Raza Keita MD at 14:54 EST , Assessment & Plan Assessment/Plan (1) Acute and chronic respiratory failure with hypoxia: PLAN: Plan #Acute hypoxic respiratory failure on chronic secondary to postobstructive pneumonia +/- pneumonitis in the setting of small cell lung carcinoma On high flow O2, already feeling much more comfortable after breathing treatment and dose of steroids Will start IV Methylpred Nebs and as needed albuterol CTA in ED with no PE but did show progressive enlargement of right paratracheal and right hilar masses with postobstructive volume loss additionally noted pneumonitis in the right lower lobe?films independently reviewed and compared with previous film and feel that there is possibly component of pneumonia and will gets strep and Legionella urine antigens COVID pending, will also get respiratory panel Noted to have anaphylactic penicillin allergy but tolerated Merrem earlier this year during hospitalization. Will start on Merrem and Vanco. If Legionella urinary antigen is positive will start azithromycin but can hold off at this time #Small cell lung carcinoma On atezolizumab as an outpatient and was restarted on 12/19. Follows with Dr. Zee CT with progressive enlargement of right paratracheal and right hilar masses with postobstructive volume loss and pneumonitis in right lower lobe and possible atelectasis and/or infiltrate in right lower lobe with tiny pleural effusion #Hypertension Holding home antihypertensives due to borderline BP #Tobacco use Advised cessation Does not want a nicotine patch #DVT ppx: Gennaro Davis MD Charges/Coding Visit Charges Inpatient E&M: 12747 Init Hosp L2
[2021-12-25] MEDS: buPROPion (XL) 300 MG TABLET.XL PO (18:29)
[2021-12-25] MEDS: Pantoprazole Sodium 20 MG Tablet PO (18:29)
[2021-12-25 18:33] LABS: M R Staph aureus DNA By PCR Negative (Negative); Probe Check PASS; Specimen Processing Control PASS
--- NOTE | 2021-12-25 18:46 | PCM.RX.CS ---
Consult Pharmacy has been consulted to manage selected antiobiotic: Vancomycin Type of Consult: New start Suspected Infection: Pneumonia Labs: Sodium 134 mmol/L (136-145) L 12/25/21 13:35 Potassium 2.9 mmol/L (3.5-5.1) L 12/25/21 13:35 Chloride 95 mmol/L (98-107) L 12/25/21 13:35 Carbon Dioxide 31.0 mmol/L (21.0-32.0) 12/25/21 13:35 Anion Gap 8 (5-15) 12/25/21 13:35 BUN 14 mg/dL (7-18) 12/25/21 13:35 Creatinine 1.06 mg/dL (0.55-1.02) H 12/25/21 13:35 Est GFR (MDRD) Af Amer 67 mL/min (>60) 12/25/21 13:35 Est GFR (MDRD) Non-Af 55 mL/min (>60) L 12/25/21 13:35 BUN/Creatinine Ratio 13.2 RATIO (10-20) 12/25/21 13:35 Glucose 91 mg/dL (74-106) 12/25/21 13:35 Microbiology: Microbiology 12/25/21 16:35 Mucosa - Nasopharyngeal Influenza Types A,B Direct FA (ROSEANNA) - Final Goal Trough: 15-20 mcg/mL Pharmacy Plan for Drug Dosing: NEW START IV VANCOMYCIN Consulting Physician: Dr. Davis Indication: Pneumonia Goal Trough: 15-20 SrCr: 1.06 CrCl: 68 mL/min Comments: Loading dose 2g IV x1 ordered and administered 12/25/21 @1829 Vancomycin Dose: 1500mg IV Q12hr to start 12/26/21 @0600 Pending Level: 12/27/21 @0530 (prior to 4th total dose of vancomycin per protocol) Pharmacy Service will continue to monitor and adjust dosing as required.
[2021-12-25] MEDS: Enoxaparin 40 MG/0.4 ML Syringe SC (22:19)
[2021-12-25] MEDS: Atorvastatin Calcium 10 MG Tablet PO (22:19)
[2021-12-26] VITALS (19 sets, daily range): BP systolic 102–138; BP diastolic 65–85; PULSE 65–115; RESP 18–28; TEMP 36.1–36.9; O2SAT 89–96
[2021-12-26] MEDS: Ipratropium/Albuterol Sulfate 3 ML AMPUL.NEB INHALATION ×7 (03:57→23:30)
[2021-12-26 04:58] LABS: Absolute Lymphocyte Count 0.31 X10^3/uL (0.83-4.51); Absolute Neutrophil Count 10.3 X10^3/uL (2.0-7.7); Basophil# 0.02 X10^3/uL; Basophil% 0.2 % (0-1); Hematocrit 50.1 % (37-47); Hemoglobin 15.5 g/dL (12.0-15.0); Lymphocyte # 0.31 X10^3/ul (0.83-4.51); Lymphocyte % 2.8 % (19-41); Mean Corp Hgb Conc 30.9 g/dL (32-36); Mean Corpuscular Hgb 24.1 pg (27.0-32.0); Mean Corpuscular Volume 77.8 fL (81-99); Mean Platelet Vol. 11.1 fl (6.2-12.0); Monocyte# 0.34 X10^3/uL; Monocyte% 3.1 % (0-10); NRBC Flagged by Analyzer 0 % (0-5); Neutrophil # 10.33 X10^3/uL (2.7-7.7); Neutrophil % 93.2 % (47-70); POSITIVE DIFFERENTIAL YES; Platelet Count 183 K/mm3 (150-450); RBC Distribution Width CV 18.5 % (11.6-14.6); RBC Distribution Width SD 48.3 fl (35.1-43.9); Red Blood Count 6.44 M/mm3 (4.2-5.4); White Blood Count 11.1 K/mm3 (4.4-11.0)
[2021-12-26 05:12] LABS: Differential Indicated SCAN CRITERIA MET
[2021-12-26 05:34] LABS: ALB/GLOB Ratio 0.6 RATIO (0.9-2.4); AST(SGOT) 23 U/L (15-37); Alanine Aminotransfer ALT/SGPT 18 U/L (13-56); Alkaline Phosphatase 110 U/L (45-117); BUN 15 mg/dL (7-18); BUN/Creat Ratio 14.6 RATIO (10-20); Calcium,Total 9.8 mg/dL (8.5-10.1); Creatinine, Serum 1.03 mg/dL (0.55-1.02); EST Glomerular Filtration Rate 57 mL/min (>60); Est Glom Filt Rate - Afr Amer 69 mL/min (>60); Estimated Creatinine Clearance 44.44 ml/min; Globulin 4.7 g/dL (2.2-4.2); Glucose 154 mg/dL (74-106); Protein, Total 7.7 g/dL (6.4-8.2)
[2021-12-26 05:35] LABS: Anion Gap 9 (5-15); Chloride 97 mmol/L (98-107); Potassium 3.5 mmol/L (3.5-5.1); Sodium Level 132 mmol/L (136-145); Thyroid Stim Hormone (TSH) 0.22 uIU/mL (0.358-3.74)
[2021-12-26 05:40] LABS: Microcytosis 1+
[2021-12-26 05:41] LABS: Anisocytosis 1+
--- NOTE | 2021-12-26 09:21 | PCM.PN.HOSP ---
Subjective Subjective Feeling the better than yesterday, still has high O2 requirement. Now able to mobilize some secretions better. No chest pain. Denies other complaints this AM Objective Data Objective Data Vital Signs: Vital Signs Temp Pulse Resp BP Pulse Ox O2 Del Method O2 Flow Rate 98.1 F 94 18 127/73 H 92 Nasal Cannula 10 12/26/21 08:00 12/26/21 08:00 12/26/21 08:00 12/26/21 08:00 12/26/21 08:00 12/26/21 08:19 12/26/21 08:19 FiO2 100 12/25/21 13:39 Oxygen Flow Rate (L/min) 10 Oxygen Delivery Method Nasal Cannula Weight: 118.8 kg Body Mass Index (BMI) 46.7 Intake & Output: Intake and Output for Last 24 Hours 12/24/21 12/25/21 12/26/21 23:59 23:59 23:59 Intake Total 540 / 540 120 / 120 Balance 540 / 540 120 / 120 Lab / Micro Data Result Diagrams: 12/26/21 04:21 12/26/21 04:21 Labs: Laboratory Results - last 24 hr 12/25/21 13:35: WBC 11.6 H, RBC 6.27 H, Hgb 15.0, Hct 48.1 H, MCV 76.7 L, MCH 23.9 L, MCHC 31.2 L, RDW Std Deviation 47.4 H, RDW Coeff of Melina 18.5 H, Plt Count 186, MPV 10.9, Immature Gran % (Auto) 0.600, Neut % (Auto) 86.4 H, Lymph % (Auto) 4.3 L, [place] % (Auto) 8.0, Eos % (Auto) 0.4, Baso % (Auto) 0.3, Absolute Neuts (auto) 10.1 H, Absolute Lymphs (auto) 0.50 L, Nucleated RBC % 0, Platelet Estimate ADEQUATE, RBC Morphology NORM C+C 12/25/21 13:35: Sodium 134 L, Potassium 2.9 L, Chloride 95 L, Carbon Dioxide 31.0, Anion Gap 8, BUN 14, Creatinine 1.06 H, Estim Creat Clear Calc 43.19, Est GFR (MDRD) Af Amer 67, Est GFR (MDRD) Non-Af 55 L, BUN/Creatinine Ratio 13.2, Glucose 91, Calcium 10.2 H, Troponin I High Sens 51 12/25/21 13:35: B-Natriuretic Peptide 81.7 12/25/21 13:57: COVID-19 (REMBERTO) Not Detected 12/25/21 16:50: MRSA (PCR) Negative 12/26/21 04:21: WBC 11.1 H, RBC 6.44 H, Hgb 15.5 H, Hct 50.1 H, MCV 77.8 L, MCH 24.1 L, MCHC 30.9 L, RDW Std Deviation 48.3 H, RDW Coeff of Melina 18.5 H, Plt Count 183, MPV 11.1, Immature Gran % (Auto) 0.700, Neut % (Auto) 93.2 H, Lymph % (Auto) 2.8 L, [place] % (Auto) 3.1, Eos % (Auto) 0.0, Baso % (Auto) 0.2, Absolute Neuts (auto) 10.3 H, Absolute Lymphs (auto) 0.31 L, Nucleated RBC % 0, Anisocytosis 1+, Microcytosis 1+ 12/26/21 04:21: Sodium 132 L, Potassium 3.5, Chloride 97 L, Carbon Dioxide 26.0, Anion Gap 9, BUN 15, Creatinine 1.03 H, Estim Creat Clear Calc 44.44, Est GFR (MDRD) Af Amer 69, Est GFR (MDRD) Non-Af 57 L, BUN/Creatinine Ratio 14.6, Glucose 154 H, Calcium 9.8, Total Bilirubin 0.30, AST 23, ALT 18, Alkaline Phosphatase 110, Total Protein 7.7, Albumin 3.0 L, Globulin 4.7 H, Albumin/Globulin Ratio 0.6 L, TSH 0.22 L Micro: Microbiology 12/25/21 16:35 Mucosa - Nasopharyngeal Respiratory Panel (PCR) - Final Rhinovirus 12/25/21 16:35 Mucosa - Nasopharyngeal Influenza Types A,B Direct FA (ROSEANNA) - Final Radiography Diagnostic Testing: Radiology Impression Chest X-Ray 12/25/21 13:30 IMPRESSION: Right paratracheal and right hilar mass with the consolidation and/or postobstructive atelectasis in the right upper lobe. Electronically Signed: Raza Keita MD at 14:32 EST , Chest CTA 12/25/21 13:36 IMPRESSION: Progressive enlargement of the right paratracheal and right hilar masses with postobstructive volume loss and pneumonitis in the right lower lobe. Increased markings are also seen in the right upper lobe. Patchy airspace disease also seen in the left hemithorax with evidence of pulmonary nodules. No evidence of pulmonary embolism. Electronically Signed: Raza Keita MD at 14:54 EST , Physical Exam Const alert Constitutional Narrative: Oriented HEENT normocephalic and head/scalp atraumatic Eyes Eyes Narrative: EOM grossly intact, anicteric Neck supple Resp Resp Narrative: Not conversationally dyspneic, sitting comfortably with high flow O2 in place, diminished breath sounds at bases, still difficult to appreciate any breath sounds on the right but left side with some scattered crackles and wheezes in upper lobe Cardio regular rate and regular rhythm GI soft to palpation, non-tender and non-distended Extremity Extremity Narrative: No edema appreciated Skin Skin Narrative: Thickened skin on bilateral lower extremities Neuro moves all extremities Neuro Narrative: No overt focal deficits appreciated Psych Psych Narrative: Tearful Assessment & Plan Assessment/Plan (1) Acute and chronic respiratory failure with hypoxia: PLAN: Plan #Acute hypoxic respiratory failure on chronic secondary to postobstructive pneumonia +/- pneumonitis in the setting of small cell lung carcinoma On high flow O2, already feeling much more comfortable after breathing treatment and dose of steroids Will start IV Methylpred Nebs and as needed albuterol CTA in ED with no PE but did show progressive enlargement of right paratracheal and right hilar masses with postobstructive volume loss additionally noted pneumonitis in the right lower lobe?films independently reviewed and compared with previous film and feel that there is possibly component of pneumonia and will gets strep and Legionella urine antigens COVID pending, will also get respiratory panel Noted to have anaphylactic penicillin allergy but tolerated Merrem earlier this year during hospitalization. Will start on Merrem and Vanco. If Legionella urinary antigen is positive will start azithromycin but can hold off at this time 12/26: Positive for rhinovirus. Likely what exacerbated her already worsening respiratory status. CT did still appear to have pneumonia, unclear if this could be superimposed. MRSA PCR was negative however so will DC vancomycin. COVID-negative. Legionella and strep pneumo not yet obtained. We will continue Merrem at this time. Continue methylprednisone #Small cell lung carcinoma On atezolizumab as an outpatient and was restarted on 12/19. Follows with Dr. Zee CT with progressive enlargement of right paratracheal and right hilar masses with postobstructive volume loss and pneumonitis in right lower lobe and possible atelectasis and/or infiltrate in right lower lobe with tiny pleural effusion #Hypertension Holding home antihypertensives due to borderline BP #Tobacco use Advised cessation Does not want a nicotine patch #DVT ppx: Lovenox Enriqueta Davis MD Charges/Coding Visit Charges Inpatient E&M: 17629 Subs Hosp L2
[2021-12-26] MEDS: Pantoprazole Sodium 20 MG Tablet PO (09:33)
[2021-12-26] MEDS: Enoxaparin 40 MG/0.4 ML Syringe SC ×2 (09:33→22:24)
[2021-12-26] MEDS: Clopidogrel Bisulfate 75 MG Tablet PO (09:33)
[2021-12-26] MEDS: buPROPion (XL) 300 MG TABLET.XL PO (09:33)
[2021-12-26] MEDS: Sertraline 100 MG Tablet PO (09:33)
--- NOTE | 2021-12-26 11:15 | CASEMGMT ---
RN KELLE DESK ASSISTANT CM to room to meet with patient for initial transition planning/care coordination assessment. RN KELLE introduced self and role at [facility]. Pt voices understanding and consents to assessment at this time. Pt sitting up in chair in room in no distress at this time. Pt is A/O at this time and answers all questions appropriately. Care providers, pharmacy, and demographics verified/updated at this time. PCP: Dr Mortensen Specialists: Dr Banda and Joann Huff/ZACARIAS-pulmonology, Dr Llamas-oncology Preferred Pharmacy:[facility] Retail Insurance: [employer]Open [facility] Prescription Benefit: Yes Living Will/HPOA: Pt has both LW and HCPOA, who is her , Nelson. Pt's [id number], Betty Cash, is listed as 1st alternative. LNOK: , Nelson. Pt states he is currently hospitalized @ [facility] and that plans are for him to go to a SNF @ discharge. Living Arrangements: Pt lives w/her and her sister, Romelia, in a one-story home w/1 step to enter. Pt states she is independent w/ADL's. She states d/t fatigue, she usually sponge-baths. She sleeps in a recliner. She manages her own medications and appts. Her and her both work on home mgmt tasks, although it has been becoming more difficult d/t both of their declining health conditions. Her sister, Romelia, will occasionally help w/laundry. She states she orders groceries on-line. Her best friend hires a reed cleaner to come 1-2 x's/month. Employment/finances: Pt states she still works part-time @ [employer] d/t financial necessity. She states her and her 's income is limited and they have difficulty having enough to pay their bills. 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 She states she knows she would not qualify for [facility]. She states she would be willing to talk w/SW for further resources that she may not be aware of. Maggi FRANCISCO, made aware. Transportation: has been providing all transportation recently. She states either her sis-in-law, Betty Cash, or her sister, Romelia, will take her home @ discharge. DME: States has the following DME: shower chair, O2 thru [facility] in [place]--she states she uses 2 l/m @ [facility]. She has portable tanks and concentrator and states she will have her sis-in-law, Betty Cash, bring her portable tank in to the hospital so she will have it go home on, should she need it @ discharge. She does have a pulse ox. Pt states no need for further DME at this time. HHC/SNF: Hx: [facility] and has had HHC in the past. She declines need for HHC at this time, stating she plans to return to work as soon as possible, and would not be home-bound. She was made aware, if she decides once she returns home to not return to work right away and if she is interested in HHC, to f/u with her PCP. She voices understanding. Pt wishes to return home at discharge and denies having any discharge planning needs at this time. CM to follow for any increaes in home oxygen needs and any further discharge planning/needs. Advised pt to ask for CM if any further questions/concerns/needs arise. Voices understanding. PLAN: Home. Follow for possible increase in home oxygen requirements. Rolando PRITCHARD RN CM
[2021-12-26] MEDS: Acetaminophen 325 MG Tablet 650 MG PO ×2 (11:45→18:34)
--- NOTE | 2021-12-26 13:36 | CASEMGMT ---
RN KELLE made referral for possible financial resources. SW went to patient's room. SW introduced self and role at [facility]. SW asked patient about her concerns. Patient opened up and talked about her , her sister, and what everyone is going through. Patient is concerned about her and what will happen to him when she dies. He would not be able to financially live in the home on his own. SW listened and provided emotional support. SW validated patient's concerns. Patient said she had an appt to go to counseling, but ended up in the hospital. She definitely plans on going to counseling and she is hoping to get her to go as well. Patient thanked NOLAN for talking with her. Maggi MAY
[2021-12-26] MEDS: Sodium Chloride 0.65% 1 SPRAY SPRAY.BTL 2 SPRAY NASAL (16:14)
[2021-12-26] MEDS: BENZOCAINE/MENTHOL 1 LOZENGE MUCOUS MEM (18:34)
[2021-12-26] MEDS: Atorvastatin Calcium 10 MG Tablet PO (22:24)
[2021-12-27] VITALS (16 sets, daily range): BP systolic 140–151; BP diastolic 65–83; PULSE 93–109; RESP 18–24; TEMP 36.4–36.8; O2SAT 90–98
[2021-12-27] MEDS: Acetaminophen 325 MG Tablet 650 MG PO ×2 (02:49→20:16)
[2021-12-27] MEDS: Ipratropium/Albuterol Sulfate 3 ML AMPUL.NEB INHALATION ×6 (03:40→22:58)
[2021-12-27 06:04] LABS: Absolute Neutrophil Count 18.3 X10^3/uL (2.0-7.7); Basophil# 0.02 X10^3/uL; Basophil% 0.1 % (0-1); Hematocrit 50.5 % (37-47); Hemoglobin 15.9 g/dL (12.0-15.0); Mean Corp Hgb Conc 31.5 g/dL (32-36); Mean Corpuscular Hgb 24.7 pg (27.0-32.0); Mean Corpuscular Volume 78.4 fL (81-99); Mean Platelet Vol. 10.8 fl (6.2-12.0); Monocyte# 0.88 X10^3/uL; Monocyte% 4.5 % (0-10); NRBC Flagged by Analyzer 0 % (0-5); Neutrophil # 18.28 X10^3/uL (2.7-7.7); Neutrophil % 92.8 % (47-70); POSITIVE DIFFERENTIAL YES; Platelet Count 209 K/mm3 (150-450); RBC Distribution Width CV 18.8 % (11.6-14.6); RBC Distribution Width SD 50.1 fl (35.1-43.9); Red Blood Count 6.44 M/mm3 (4.2-5.4); White Blood Count 19.7 K/mm3 (4.4-11.0)
[2021-12-27 06:05] LABS: Differential Indicated SCAN CRITERIA MET
[2021-12-27 06:12] LABS: Anion Gap 4 (5-15); BUN 21 mg/dL (7-18); BUN/Creat Ratio 22.9 RATIO (10-20); Calcium,Total 10.3 mg/dL (8.5-10.1); Chloride 100 mmol/L (98-107); Creatinine, Serum 0.92 mg/dL (0.55-1.02); EST Glomerular Filtration Rate 65 mL/min (>60); Est Glom Filt Rate - Afr Amer 79 mL/min (>60); Estimated Creatinine Clearance 49.76 ml/min; Glucose 136 mg/dL (74-106); Potassium 3.6 mmol/L (3.5-5.1); Sodium Level 137 mmol/L (136-145)
[2021-12-27 06:25] LABS: Differential Comment SCANNED
[2021-12-27] MEDS: Sodium Chloride 0.65% 1 SPRAY SPRAY.BTL 2 SPRAY NASAL (09:44)
[2021-12-27] MEDS: Sertraline 100 MG Tablet PO (09:46)
[2021-12-27] MEDS: Clopidogrel Bisulfate 75 MG Tablet PO (09:46)
[2021-12-27] MEDS: Enoxaparin 40 MG/0.4 ML Syringe SC ×2 (09:46→21:24)
[2021-12-27] MEDS: buPROPion (XL) 300 MG TABLET.XL PO (09:46)
[2021-12-27] MEDS: Pantoprazole Sodium 20 MG Tablet PO (09:46)
--- NOTE | 2021-12-27 13:59 | PN.HOSP_ITS ---
Subjective Subjective Continues to have shortness of breath but slowly feels she is improving. Somewhat of a cough still. Objective Data Objective Data Vital Signs: Vital Signs Temp Pulse Resp BP Pulse Ox O2 Del Method O2 Flow Rate 97.7 F L 105 H 24 H 151/83 H 94 Airvo 50 12/27/21 08:30 12/27/21 11:33 12/27/21 11:33 12/27/21 08:30 12/27/21 11:33 12/27/21 08:30 12/27/21 08:27 FiO2 90 12/27/21 11:33 Oxygen Flow Rate (L/min) 50 Oxygen Delivery Method Airvo Weight: 117.5 kg Body Mass Index (BMI) 46.7 Intake & Output: Intake and Output for Last 24 Hours 12/25/21 12/26/21 12/27/21 23:59 23:59 23:59 Intake Total 540 / 540 1370 / 1370 600 / 600 Output Total 400 / 400 Balance 540 / 540 1370 / 1370 200 / 200 Medical Nutrition Assessment Dietitian: Malnutrition Criteria Met Start: 12/26/21 16:39 Freq: Status: Active Protocol: Document 12/26/21 16:39 LO (Rec: 12/26/21 16:39 [id number]) Nutrition Malnutrition Evidence of Malnutrition Exists Yes Malnutrition (severe): Chronic Evidenced By Suboptimal Energy Intake ( Severe),Weight Loss (Severe) Clinical Problem Chronic Disease or Condition Related Malnutrition Etiology severe related to non-small cell lung cancer Signs/Symptoms as evidenced by <75% PO intake of estimated energy needs for >1 month and 5.6% weight loss in 1 month. Status Active Problem Recommendation Dietitian Recommendations/Changes Continue Regular diet to optimize oral intakes. RD will order 120mL Ensure Plus High Protein 4x daily with medpass to promote weight maintenance Lab / Micro Data Result Diagrams: 12/27/21 05:46 12/27/21 05:46 Labs: Laboratory Results - last 24 hr 12/27/21 05:46: WBC 19.7 H, RBC 6.44 H, Hgb 15.9 H, Hct 50.5 H, MCV 78.4 L, MCH 24.7 L, MCHC 31.5 L, RDW Std Deviation 50.1 H, RDW Coeff of Melina 18.8 H, Plt Count 209, MPV 10.8, Immature Gran % (Auto) 0.600, Neut % (Auto) 92.8 H, Lymph % (Auto) 2.0 L, [place] % (Auto) 4.5, Eos % (Auto) 0.0, Baso % (Auto) 0.1, Absolute Neuts (auto) 18.3 H, Absolute Lymphs (auto) 0.40 L, Nucleated RBC % 0, Differential Comment SCANNED 12/27/21 05:46: Sodium 137, Potassium 3.6, Chloride 100, Carbon Dioxide 33.0 H, Anion Gap 4 L, BUN 21 H, Creatinine 0.92, Estim Creat Clear Calc 49.76, Est GFR (MDRD) Af Amer 79, Est GFR (MDRD) Non-Af 65, BUN/Creatinine Ratio 22.9 H, Glucose 136 H, Calcium 10.3 H, Magnesium 2.0 Micro: Microbiology 12/26/21 14:35 Interface Orders Legionella Antigen - Final 12/26/21 14:35 Interface Orders Streptococcus pneumoniae Antigen (M - Final 12/25/21 16:35 Mucosa - Nasopharyngeal Respiratory Panel (PCR) - Final Rhinovirus 12/25/21 16:35 Mucosa - Nasopharyngeal Influenza Types A,B Direct FA (ROSEANNA) - Final Physical Exam Const alert Constitutional Narrative: Oriented HEENT normocephalic and head/scalp atraumatic Eyes Eyes Narrative: EOM grossly intact, anicteric Neck supple Resp Resp Narrative: Sitting up in chair, better able to hear breath sounds which are coarse Cardio regular rate and regular rhythm GI soft to palpation, non-tender and non-distended Extremity Extremity Narrative: No edema appreciated Skin Skin Narrative: Thickened skin on bilateral lower extremities Neuro moves all extremities Neuro Narrative: No overt focal deficits appreciated Psych Psych Narrative: Tearful Assessment & Plan Assessment/Plan (1) Acute and chronic respiratory failure with hypoxia: PLAN: Plan #Acute hypoxic respiratory failure on chronic secondary to postobstructive pneumonia +/- pneumonitis in the setting of small cell lung carcinoma On high flow O2, already feeling much more comfortable after breathing treatment and dose of steroids Will start IV Methylpred Nebs and as needed albuterol CTA in ED with no PE but did show progressive enlargement of right paratracheal and right hilar masses with postobstructive volume loss additionally noted pneumonitis in the right lower lobe?films independently reviewed and compared with previous film and feel that there is possibly component of pneumonia and will gets strep and Legionella urine antigens COVID pending, will also get respiratory panel Noted to have anaphylactic penicillin allergy but tolerated Merrem earlier this year during hospitalization. Will start on Merrem and Vanco. If Legionella urinary antigen is positive will start azithromycin but can hold off at this time 12/26: Positive for rhinovirus. Likely what exacerbated her already worsening respiratory status. CT did still appear to have pneumonia, unclear if this could be superimposed. MRSA PCR was negative however so will DC vancomycin. COVID-negative. Legionella and strep pneumo not yet obtained. We will continue Merrem at this time. Continue methylprednisone 12/27: On Airvo, continue supportive care at this time, is still on Merrem #Small cell lung carcinoma On atezolizumab as an outpatient and was restarted on 12/19. Follows with Dr. Zee CT with progressive enlargement of right paratracheal and right hilar masses with postobstructive volume loss and pneumonitis in right lower lobe and p ossible atelectasis and/or infiltrate in right lower lobe with tiny pleural effusion #Hypertension Holding home antihypertensives due to borderline BP #Tobacco use Advised cessation Does not want a nicotine patch #DVT ppx: Lovenox Enriqueta Davis MD Charges/Coding Visit Charges Inpatient E&M: 96261 Subs Hosp L2
--- NOTE | 2021-12-27 14:29 | CASEMGMT ---
Per palliative, pt is active with them and pt had appt scheduled for 12/30/21 but they will re-schedule with pt once home. Deb JETER CM
[2021-12-27] MEDS: 0.9% Saline Lock 10 ML Syringe IV (14:58)
[2021-12-27] MEDS: Atorvastatin Calcium 10 MG Tablet PO (21:24)
[2021-12-28] VITALS (18 sets, daily range): BP systolic 134–158; BP diastolic 70–93; PULSE 85–104; RESP 17–26; TEMP 36.3–36.6; O2SAT 90–97
[2021-12-28] MEDS: Acetaminophen 325 MG Tablet 650 MG PO ×2 (03:13→14:59)
[2021-12-28] MEDS: LORazepam 0.5 MG Tablet 0.25 MG PO ×2 (03:13→18:08)
[2021-12-28] MEDS: Ipratropium/Albuterol Sulfate 3 ML AMPUL.NEB INHALATION ×6 (03:16→22:46)
[2021-12-28] MEDS: 0.9% Saline Lock 10 ML Syringe IV ×2 (06:02→21:16)
--- NOTE | 2021-12-28 06:30 | NURSING ---
Per patient it's okay to give Jyoti santana
[2021-12-28] MEDS: buPROPion (XL) 300 MG TABLET.XL PO (09:21)
[2021-12-28] MEDS: Clopidogrel Bisulfate 75 MG Tablet PO (09:21)
[2021-12-28] MEDS: Enoxaparin 40 MG/0.4 ML Syringe SC ×2 (09:21→21:11)
[2021-12-28] MEDS: Pantoprazole Sodium 20 MG Tablet PO (09:21)
[2021-12-28] MEDS: Sertraline 100 MG Tablet PO (09:21)
[2021-12-28] MEDS: BENZOCAINE/MENTHOL 1 LOZENGE MUCOUS MEM ×2 (09:27→14:59)
--- NOTE | 2021-12-28 10:30 | PCM.PN.HOSP ---
Subjective Subjective Continues to have shortness of breath but is very slowly improving. Cough improving. Objective Data Objective Data Vital Signs: Vital Signs Temp Pulse Resp BP Pulse Ox O2 Del Method O2 Flow Rate 97.8 F 104 H 18 137/86 H 92 Airvo 50 12/28/21 09:18 12/28/21 09:18 12/28/21 09:18 12/28/21 09:18 12/28/21 09:18 12/28/21 09:18 12/28/21 03:26 FiO2 87 12/28/21 03:26 Oxygen Flow Rate (L/min) 50 Oxygen Delivery Method Airvo Weight: 117.5 kg Body Mass Index (BMI) 46.7 Intake & Output: Intake and Output for Last 24 Hours 12/26/21 12/27/21 12/28/21 23:59 23:59 23:59 Intake Total 1370 / 1370 960 / 960 640 / 640 Output Total 800 / 1050 250 / 250 Balance 1370 / 1370 160 / -90 390 / 390 Medical Nutrition Assessment Dietitian: Malnutrition Criteria Met Start: 12/26/21 16:39 Freq: Status: Active Protocol: Document 12/26/21 16:39 LO (Rec: 12/26/21 16:39 [id number]) Nutrition Malnutrition Evidence of Malnutrition Exists Yes Malnutrition (severe): Chronic Evidenced By Suboptimal Energy Intake ( Severe),Weight Loss (Severe) Clinical Problem Chronic Disease or Condition Related Malnutrition Etiology severe related to non-small cell lung cancer Signs/Symptoms as evidenced by <75% PO intake of estimated energy needs for >1 month and 5.6% weight loss in 1 month. Status Active Problem Recommendation Dietitian Recommendations/Changes Continue Regular diet to optimize oral intakes. RD will order 120mL Ensure Plus High Protein 4x daily with medpass to promote weight maintenance Lab / Micro Data Result Diagrams: 12/27/21 05:46 12/27/21 05:46 Micro: Microbiology 12/26/21 14:35 Interface Orders Legionella Antigen - Final 12/26/21 14:35 Interface Orders Streptococcus pneumoniae Antigen (M - Final 12/25/21 16:35 Mucosa - Nasopharyngeal Respiratory Panel (PCR) - Final Rhinovirus 12/25/21 16:35 Mucosa - Nasopharyngeal Influenza Types A,B Direct FA (ROSEANNA) - Final Physical Exam Const alert Constitutional Narrative: Oriented HEENT normocephalic and head/scalp atraumatic Eyes Eyes Narrative: EOM grossly intact, anicteric Neck supple Resp Resp Narrative: Coarse breath sounds Cardio regular rate and regular rhythm GI soft to palpation, non-tender and non-distended Extremity Extremity Narrative: No edema appreciated Skin Skin Narrative: Thickened skin on bilateral lower extremities Neuro moves all extremities Neuro Narrative: No overt focal deficits appreciated Psych affect normal Assessment & Plan Assessment/Plan (1) Acute and chronic respiratory failure with hypoxia: PLAN: Plan #Acute hypoxic respiratory failure on chronic secondary to postobstructive pneumonia +/- pneumonitis in the setting of small cell lung carcinoma On high flow O2, already feeling much more comfortable after breathing treatment and dose of steroids Will start IV Methylpred Nebs and as needed albuterol CTA in ED with no PE but did show progressive enlargement of right paratracheal and right hilar masses with postobstructive volume loss additionally noted pneumonitis in the right lower lobe?films independently reviewed and compared with previous film and feel that there is possibly component of pneumonia and will gets strep and Legionella urine antigens COVID pending, will also get respiratory panel Noted to have anaphylactic penicillin allergy but tolerated Merrem earlier this year during hospitalization. Will start on Merrem and Vanco. If Legionella urinary antigen is positive will start azithromycin but can hold off at this time 12/26: Positive for rhinovirus. Likely what exacerbated her already worsening respiratory status. CT did still appear to have pneumonia, unclear if this could be superimposed. MRSA PCR was negative however so will DC vancomycin. COVID-negative. Legionella and strep pneumo not yet obtained. We will continue Merrem at this time. Continue methylprednisone 12/27: On Airvo, continue supportive care at this time, is still on Merrem 12/28: Continues to improve but very slowly. Nebs, decrease Methylpred to 40 every 12. On Merrem #Small cell lung carcinoma On atezolizumab as an outpatient and was restarted on 12/19. Follows with Dr. Zee CT with progressive enlargement of right paratracheal and right hilar masses with postobstructive volume loss and pneumonitis in right lower lobe and possible atelectasis and/or infiltrate in right lower lobe with tiny pleural effusion #Hypertension BP had been borderline, resume home carvedilol Resume other medicine as tolerated #Tobacco use Advised cessation Does not want a nicotine patch #DVT ppx: Lovenox Enriqueta Davis, MD Charges/Coding Visit Charges Inpatient E&M: 20675 Subs Hosp L2
[2021-12-28] MEDS: Carvedilol 6.25 MG Tablet PO ×2 (11:24→21:11)
[2021-12-28 11:48] LABS: Absolute Lymphocyte Count 0.49 X10^3/uL (0.83-4.51); Absolute Neutrophil Count 14.2 X10^3/uL (2.0-7.7); Basophil# 0.03 X10^3/uL; Basophil% 0.2 % (0-1); Hematocrit 50.1 % (37-47); Hemoglobin 15.5 g/dL (12.0-15.0); Lymphocyte # 0.49 X10^3/ul (0.83-4.51); Lymphocyte % 3.1 % (19-41); Mean Corp Hgb Conc 30.9 g/dL (32-36); Mean Corpuscular Hgb 24.1 pg (27.0-32.0); Mean Corpuscular Volume 77.9 fL (81-99); Mean Platelet Vol. 10.8 fl (6.2-12.0); Monocyte% 7.5 % (0-10); NRBC Flagged by Analyzer 0 % (0-5); Neutrophil % 88.6 % (47-70); POSITIVE DIFFERENTIAL YES; Platelet Count 196 K/mm3 (150-450); RBC Distribution Width CV 18.6 % (11.6-14.6); RBC Distribution Width SD 48.8 fl (35.1-43.9); Red Blood Count 6.43 M/mm3 (4.2-5.4)
[2021-12-28 11:51] LABS: Differential Indicated SCAN CRITERIA MET
[2021-12-28 12:10] LABS: Anion Gap 3 (5-15); BUN 19 mg/dL (7-18); BUN/Creat Ratio 23.4 RATIO (10-20); Calcium,Total 10.7 mg/dL (8.5-10.1); Chloride 105 mmol/L (98-107); Creatinine, Serum 0.81 mg/dL (0.55-1.02); EST Glomerular Filtration Rate 75 mL/min (>60); Est Glom Filt Rate - Afr Amer 91 mL/min (>60); Estimated Creatinine Clearance 56.52 ml/min; Glucose 110 mg/dL (74-106); Sodium Level 137 mmol/L (136-145)
--- NOTE | 2021-12-28 17:47 | NURSING ---
This RN called and updated pt's sister in law with pt's permission.
[2021-12-28] MEDS: Atorvastatin Calcium 10 MG Tablet PO (21:11)
[2021-12-29] VITALS (21 sets, daily range): BP systolic 137–158; BP diastolic 77–125; PULSE 85–98; RESP 18–26; TEMP 36.3–36.8; O2SAT 91–98
[2021-12-29] MEDS: Albuterol 2.5 MG/3 ML VIAL.NEB. INHALATION (01:21)
[2021-12-29] MEDS: MELATONIN 3 MG TABLET PO (01:46)
[2021-12-29] MEDS: Acetaminophen 325 MG Tablet 650 MG PO (01:46)
[2021-12-29] MEDS: Ipratropium/Albuterol Sulfate 3 ML AMPUL.NEB INHALATION ×6 (02:58→22:54)
[2021-12-29] MEDS: 0.9% Saline Lock 10 ML Syringe IV ×3 (05:48→13:45)
[2021-12-29 05:57] LABS: Absolute Lymphocyte Count 0.53 X10^3/uL (0.83-4.51); Absolute Neutrophil Count 10.4 X10^3/uL (2.0-7.7); Basophil# 0.01 X10^3/uL; Basophil% 0.1 % (0-1); Eosinophil# 0.01 X10^3/uL; Eosinophils% 0.1 % (0-5); Hematocrit 50.2 % (37-47); Hemoglobin 15.4 g/dL (12.0-15.0); Lymphocyte # 0.53 X10^3/ul (0.83-4.51); Lymphocyte % 4.5 % (19-41); Mean Corp Hgb Conc 30.7 g/dL (32-36); Mean Corpuscular Hgb 24.5 pg (27.0-32.0); Mean Corpuscular Volume 79.8 fL (81-99); Mean Platelet Vol. 10.5 fl (6.2-12.0); Monocyte# 0.75 X10^3/uL; Monocyte% 6.4 % (0-10); NRBC Flagged by Analyzer 0 % (0-5); Neutrophil # 10.41 X10^3/uL (2.7-7.7); Neutrophil % 88.2 % (47-70); POSITIVE DIFFERENTIAL YES; Platelet Count 207 K/mm3 (150-450); RBC Distribution Width CV 18.6 % (11.6-14.6); RBC Distribution Width SD 51.1 fl (35.1-43.9); Red Blood Count 6.29 M/mm3 (4.2-5.4); White Blood Count 11.8 K/mm3 (4.4-11.0)
[2021-12-29 06:04] LABS: Differential Indicated SCAN CRITERIA MET
[2021-12-29 06:09] LABS: Anion Gap 4 (5-15); BUN 21 mg/dL (7-18); BUN/Creat Ratio 27.1 RATIO (10-20); Calcium,Total 10.4 mg/dL (8.5-10.1); Chloride 103 mmol/L (98-107); Creatinine, Serum 0.77 mg/dL (0.55-1.02); EST Glomerular Filtration Rate 79 mL/min (>60); Est Glom Filt Rate - Afr Amer 96 mL/min (>60); Estimated Creatinine Clearance 45.78 ml/min; Glucose 130 mg/dL (74-106); Potassium 4.2 mmol/L (3.5-5.1); Sodium Level 141 mmol/L (136-145)
--- NOTE | 2021-12-29 06:43 | NURSING ---
spoke to pts sister this am and gave her an update regarding pt.
[2021-12-29 07:02] LABS: Differential Comment SCANNED
[2021-12-29] MEDS: Enoxaparin 40 MG/0.4 ML Syringe SC ×2 (08:49→21:30)
[2021-12-29] MEDS: Carvedilol 6.25 MG Tablet PO ×2 (08:51→21:30)
[2021-12-29] MEDS: Sertraline 100 MG Tablet PO (08:51)
[2021-12-29] MEDS: buPROPion (XL) 300 MG TABLET.XL PO (08:51)
[2021-12-29] MEDS: Pantoprazole Sodium 20 MG Tablet PO (08:51)
[2021-12-29] MEDS: Clopidogrel Bisulfate 75 MG Tablet PO (08:52)
[2021-12-29] MEDS: LORazepam 0.5 MG Tablet 0.25 MG PO (09:01)
--- NOTE | 2021-12-29 15:17 | PN.HOSP_ITS ---
Subjective Subjective Needs to have shortness of breath, very slow improvement. No chest pain, denied other complaints today Objective Data Objective Data Vital Signs: Vital Signs Temp Pulse Resp BP Pulse Ox O2 Del Method O2 Flow Rate 97.8 F 89 20 H 143/125 H 98 Airvo 60 12/29/21 08:47 12/29/21 14:27 12/29/21 10:59 12/29/21 08:47 12/29/21 08:47 12/29/21 12:44 12/29/21 08:47 FiO2 86 12/29/21 08:47 Oxygen Flow Rate (L/min) 60 Oxygen Delivery Method Airvo Weight: 122.9 kg Body Mass Index (BMI) 46.7 Intake & Output: Intake and Output for Last 24 Hours 12/27/21 12/28/21 12/29/21 23:59 23:59 23:59 Intake Total 960 / 960 1560 / 1560 640 / 640 Output Total 800 / 1050 650 / 650 Balance 160 / -90 910 / 910 640 / 640 Medical Nutrition Assessment Dietitian: Malnutrition Criteria Met Start: 12/26/21 16:39 Freq: Status: Active Protocol: Document 12/29/21 11:22 RMA (Rec: 12/29/21 11:22 RMA [id number]) Nutrition Malnutrition Evidence of Malnutrition Exists Yes Malnutrition (severe): Chronic Evidenced By Suboptimal Energy Intake ( Severe),Weight Loss (Severe) Clinical Problem Chronic Disease or Condition Related Malnutrition Etiology Protein-calorie malnutrition in the context of chronic malignant disease related to increased energy expenditure and inadequate oral intake Signs/Symptoms as evidenced by <50% PO intake of estimated energy needs for >1 month and 5.6% weight loss in 1 month. Status Active Problem Recommendation Dietitian Recommendations/Changes Continue Regular diet to optimize oral intakes. Lab / Micro Data Result Diagrams: 12/29/21 05:45 12/29/21 05:45 Labs: Laboratory Results - last 24 hr 12/29/21 05:45: WBC 11.8 H, RBC 6.29 H, Hgb 15.4 H, Hct 50.2 H, MCV 79.8 L, MCH 24.5 L, MCHC 30.7 L, RDW Std Deviation 51.1 H, RDW Coeff of Melina 18.6 H, Plt Count 207, MPV 10.5, Immature Gran % (Auto) 0.700, Neut % (Auto) 88.2 H, Lymph % (Auto) 4.5 L, [place] % (Auto) 6.4, Eos % (Auto) 0.1, Baso % (Auto) 0.1, Absolute Neuts (auto) 10.4 H, Absolute Lymphs (auto) 0.53 L, Nucleated RBC % 0, Differential Comment SCANNED 12/29/21 05:45: Sodium 141, Potassium 4.2, Chloride 103, Carbon Dioxide 34.0 H, Anion Gap 4 L, BUN 21 H, Creatinine 0.77, Estim Creat Clear Calc 45.78, Est GFR (MDRD) Af Amer 96, Est GFR (MDRD) Non-Af 79, BUN/Creatinine Ratio 27.1 H, Glucose 130 H, Calcium 10.4 H Micro: Microbiology 12/26/21 14:35 Interface Orders Legionella Antigen - Final 12/26/21 14:35 Interface Orders Streptococcus pneumoniae Antigen (M - Final 12/25/21 16:35 Mucosa - Nasopharyngeal Respiratory Panel (PCR) - Final Rhinovirus 12/25/21 16:35 Mucosa - Nasopharyngeal Influenza Types A,B Direct FA (ROSEANNA) - Final Physical Exam Const alert Constitutional Narrative: Oriented HEENT normocephalic and head/scalp atraumatic Eyes Eyes Narrative: EOM grossly intact, anicteric Neck supple Resp Resp Narrative: Breath sounds still coarse but do seem to be slightly improved Cardio regular rate and regular rhythm GI soft to palpation, non-tender and non-distended Extremity Extremity Narrative: No edema appreciated Skin Skin Narrative: Thickened skin on bilateral lower extremities Neuro moves all extremities Neuro Narrative: No overt focal deficits appreciated Psych affect normal Assessment & Plan Assessment/Plan (1) Acute and chronic respiratory failure with hypoxia: PLAN: Plan #Acute hypoxic respiratory failure on chronic secondary to postobstructive pneumonia +/- pneumonitis in the setting of small cell lung carcinoma On high flow O2, already feeling much more comfortable after breathing treatment and dose of steroids Will start IV Methylpred Nebs and as needed albuterol CTA in ED with no PE but did show progressive enlargement of right paratracheal and right hilar masses with postobstructive volume loss additionally noted pneumonitis in the right lower lobe?films independently reviewed and compared with previous film and feel that there is possibly component of pneumonia and will gets strep and Legionella urine antigens COVID pending, will also get respiratory panel Noted to have anaphylactic penicillin allergy but tolerated Merrem earlier this year during hospitalization. Will start on Merrem and Vanco. If Legionella urinary antigen is positive will start azithromycin but can hold off at this time 12/26: Positive for rhinovirus. Likely what exacerbated her already worsening respiratory status. CT did still appear to have pneumonia, unclear if this could be superimposed. MRSA PCR was negative however so will DC vancomycin. COVID-negative. Legionella and strep pneumo not yet obtained. We will continue Merrem at this time. Continue methylprednisone 12/27: On Airvo, continue supportive care at this time, is still on Merrem 12/28: Continues to improve but very slowly. Nebs, decrease Methylpred to 40 every 12. On Merrem 12/29: Continued on Airvo, nebs, continue to taper steroids as tolerated. Given white count and productive cough as well as what appeared to be infiltrate when reviewing the CT film she has been continued on Merrem. Once O2 weaned down can consider walk test to assess O2 needs and DC home. At this time still is too high and oxygen requirement #Small cell lung carcinoma On atezolizumab as an outpatient and was restarted on 12/19. Follows with Dr. Zee CT with progressive enlargement of right paratracheal and right hilar masses with postobstructive volume loss and pneumonitis in right lower lobe and possible atelectasis and/or infiltrate in right lower lobe with tiny pleural effusion #Hypertension BP had been borderline, home carvedilol was resumed, will now resume hydrochlorothiazide #Tobacco use Advised cessation Does not want a nicotine patch #DVT ppx: Lovenox Enriqueta Davis MD Charges/Coding Visit Charges Inpatient E&M: 03153 Subs Hosp L2
[2021-12-29] MEDS: Atorvastatin Calcium 10 MG Tablet PO (21:30)
[2021-12-29] MEDS: Sodium Chloride 0.65% 1 SPRAY SPRAY.BTL 2 SPRAY NASAL (21:31)
[2021-12-30] VITALS (23 sets, daily range): BP systolic 140–159; BP diastolic 79–95; PULSE 81–104; RESP 12–36; TEMP 36.1–36.8; O2SAT 90–98
[2021-12-30] MEDS: Ipratropium/Albuterol Sulfate 3 ML AMPUL.NEB INHALATION ×6 (02:56→23:31)
[2021-12-30 04:47] LABS: Absolute Lymphocyte Count 0.52 X10^3/uL (0.83-4.51); Absolute Neutrophil Count 9.4 X10^3/uL (2.0-7.7); Basophil# 0.01 X10^3/uL; Basophil% 0.1 % (0-1); Hematocrit 50.9 % (37-47); Lymphocyte # 0.52 X10^3/ul (0.83-4.51); Mean Corp Hgb Conc 29.5 g/dL (32-36); Mean Corpuscular Hgb 23.8 pg (27.0-32.0); Mean Corpuscular Volume 80.7 fL (81-99); Mean Platelet Vol. 10.8 fl (6.2-12.0); Monocyte% 4.8 % (0-10); NRBC Flagged by Analyzer 0 % (0-5); Neutrophil % 89.5 % (47-70); POSITIVE DIFFERENTIAL YES; Platelet Count 203 K/mm3 (150-450); RBC Distribution Width CV 18.4 % (11.6-14.6); RBC Distribution Width SD 51.1 fl (35.1-43.9); Red Blood Count 6.31 M/mm3 (4.2-5.4); White Blood Count 10.5 K/mm3 (4.4-11.0)
[2021-12-30 04:55] LABS: Differential Indicated SCAN CRITERIA MET
[2021-12-30 05:02] LABS: Anion Gap 3 (5-15); BUN 24 mg/dL (7-18); BUN/Creat Ratio 35.7 RATIO (10-20); Calcium,Total 10.1 mg/dL (8.5-10.1); Chloride 104 mmol/L (98-107); Creatinine, Serum 0.67 mg/dL (0.55-1.02); EST Glomerular Filtration Rate 93 mL/min (>60); Est Glom Filt Rate - Afr Amer 113 mL/min (>60); Estimated Creatinine Clearance 45.78 ml/min; Glucose 138 mg/dL (74-106); Potassium 4.1 mmol/L (3.5-5.1); Sodium Level 142 mmol/L (136-145)
[2021-12-30 06:45] LABS: Anisocytosis 1+; Microcytosis RARE
[2021-12-30] MEDS: Carvedilol 6.25 MG Tablet PO ×2 (11:10→22:20)
[2021-12-30] MEDS: Enoxaparin 40 MG/0.4 ML Syringe SC ×2 (11:11→22:33)
[2021-12-30] MEDS: Clopidogrel Bisulfate 75 MG Tablet PO (11:11)
[2021-12-30] MEDS: Pantoprazole Sodium 20 MG Tablet PO (11:11)
[2021-12-30] MEDS: Sertraline 100 MG Tablet PO (11:11)
[2021-12-30] MEDS: buPROPion (XL) 300 MG TABLET.XL PO (11:12)
[2021-12-30] MEDS: hydroCHLOROthiazide 25 MG Tablet PO (11:14)
[2021-12-30] MEDS: 0.9% Saline Lock 10 ML Syringe IV (11:15)
--- NOTE | 2021-12-30 11:32 | PN.HOSP_ITS ---
Subjective Subjective Seen and examined. Patient's power of deputy commonwealth's attorney her [id number] present near the bedside. Patient short of breath even on Airvo and was put on BiPAP. Dyspnea at rest, conversational dyspnea. Objective Data Objective Data Vital Signs: Vital Signs Temp Pulse Resp BP Pulse Ox O2 Del Method O2 Flow Rate 96.9 F L 92 21 H 147/85 H 96 Bi-pap 60 12/30/21 11:30 12/30/21 11:30 12/30/21 11:30 12/30/21 11:30 12/30/21 11:30 12/30/21 11:30 12/30/21 11:30 FiO2 60 12/30/21 09:46 Oxygen Flow Rate (L/min) 60 Oxygen Delivery Method Bi-pap Weight: 270 lb 15.17 oz Body Mass Index (BMI) 46.7 Intake & Output: Intake and Output for Last 24 Hours 12/28/21 12/29/21 12/30/21 23:59 23:59 23:59 Intake Total 1560 / 1560 1260 / 1560 990 / 990 Output Total 650 / 650 Balance 910 / 910 1260 / 1560 990 / 990 Medical Nutrition Assessment Dietitian: Malnutrition Criteria Met Start: 12/26/21 16:39 Freq: Status: Active Protocol: Document 12/29/21 11:22 RMA (Rec: 12/29/21 11:22 RMA [id number]) Nutrition Malnutrition Evidence of Malnutrition Exists Yes Malnutrition (severe): Chronic Evidenced By Suboptimal Energy Intake ( Severe),Weight Loss (Severe) Clinical Problem Chronic Disease or Condition Related Malnutrition Etiology Protein-calorie malnutrition in the context of chronic malignant disease related to increased energy expenditure and inadequate oral intake Signs/Symptoms as evidenced by <50% PO intake of estimated energy needs for >1 month and 5.6% weight loss in 1 month. Status Active Problem Recommendation Dietitian Recommendations/Changes Continue Regular diet to optimize oral intakes. Lab / Micro Data Result Diagrams: 12/30/21 04:35 12/30/21 04:35 Labs: Laboratory Results - last 24 hr 12/30/21 04:35: WBC 10.5, RBC 6.31 H, Hgb 15.0, Hct 50.9 H, MCV 80.7 L, MCH 23.8 L, MCHC 29.5 L, RDW Std Deviation 51.1 H, RDW Coeff of Melina 18.4 H, Plt Count 203, MPV 10.8, Immature Gran % (Auto) 0.600, Neut % (Auto) 89.5 H, Lymph % (Auto) 5.0 L, Carbon % (Auto) 4.8, Eos % (Auto) 0.0, Baso % (Auto) 0.1, Absolute Neuts (auto) 9.4 H, Absolute Lymphs (auto) 0.52 L, Nucleated RBC % 0, Anis ocytosis 1+, Microcytosis RARE 12/30/21 04:35: Sodium 142, Potassium 4.1, Chloride 104, Carbon Dioxide 35.0 H, Anion Gap 3 L, BUN 24 H, Creatinine 0.67, Estim Creat Clear Calc 45.78, Est GFR (MDRD) Af Amer 113, Est GFR (MDRD) Non-Af 93, BUN/Creatinine Ratio 35.7 H, Glucose 138 H, Calcium 10.1 Micro: Microbiology 12/26/21 14:35 Interface Orders Legionella Antigen - Final 12/26/21 14:35 Interface Orders Streptococcus pneumoniae Antigen (M - Final 12/25/21 16:35 Mucosa - Nasopharyngeal Respiratory Panel (PCR) - Final Rhinovirus 12/25/21 16:35 Mucosa - Nasopharyngeal Influenza Types A,B Direct FA (ROSEANNA) - Final Physical Exam Narrative Physical exam General: Alert, Oriented x3, Cooperative, morbid obesity 48.0 kg/m? HEENT: Atraumatic, PERRLA, EOMI, Normocephalic Oral: On Airvo put on BiPAP. Neck: Supple, No JVD, Negative Carotid Bruits Lungs: Air entry severely diminished bilaterally. Labored breathing, dyspnea at rest, severe hypoxia and tachypnea. Cardiovascular: Sinus tachycardia, Normal S1, Normal S2, No murmurs Abdomen: Bowel Sounds Present, Soft, Non Tender, Non-Distended : No renal angle tenderness. No suprapubic tenderness. Extremities: Mild nonpitting edema, Capillary Refill Less than 3 Seconds Skin: No rashes, No breakdown Musculoskeletal: No Tenderness to Palpation of Joints or Extremities. ROM restricted. Hip and knee joints Neurological: Cranial nerves II-XII grossly intact, DTR 2+/4, muscle strength 4/5 at major joints Psych/Mental Status: Flat affect Assessment & Plan Assessment/Plan (1) Acute and chronic respiratory failure with hypoxia: PLAN: Plan This is a 66-year-old female with history of small cell lung cancer of right l georgie on atezolizumab, chronic smoking hypertension was admitted with 1 week of progressive worsening of shortness of breath. She recently completed a high dose prednisone taper. #Acute hypoxic respiratory failure on chronic secondary to postobstructive pneumonia +/- pneumonitis in the setting of small cell lung carcinoma: Continue oxygen support, IV methyl prednisone, nebulization, incentive spirometry. CTA in ED was independently reviewed and showed no PE but did show progressive enlargement of right paratracheal and right hilar masses with postobstructive volume loss and pneumonitis in the right lower lobe 12/30: Patient very short of breath and acute on chronic hypoxic respiratory failure. BiPAP ordered. Pulmonary consult. Patient is positive for rhinovirus, consistent with viral with suspected superimposed bacterial pneumonia. Patient is on meropenem and vancomycin. #Small cell lung carcinoma discussed with oncologist. Consult note reviewed. Patient has extensive stage small cell lung cancer with malignant pleural effusion in February 2021. At that time she was admitted for respiratory failure. She was treated with induction systemic chemotherapy and immunotherapy; carboplatin etoposide and atezolizumab from February to June 2021. Then she had a good partial remission and was placed on atezolizumab maintenance. 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 Her colitis resolved On atezolizumab as an outpatient and was restarted on 12/19. As per oncologist her condition was worse in February when she was admitted and was close to intubation but did not require intubation. #Hypertension BP was borderline on lower side but subsequently did not improve 12/30 BP 147/85. On HCTZ and carvedilol #Tobacco use Advised cessation Does not want a nicotine patch #DVT ppx: Lovenox Total time of the visit including total time spent in counseling or coordination of care, (more than 50% of the total time, spent in obtaining medical information from nurses and other ancillary care providers,explaining to the patient about labs, imaging, diagnosis and management of active complex medical conditions), discussion with human geography faculty member and oncology, review of labs and imaging and discussion with patient's power of deputy commonwealth's attorney for health is 45 minutes. Charges/Coding Visit Charges Inpatient E&M: 51599 Subs Hosp L3
[2021-12-30] MEDS: LORazepam 0.5 MG Tablet 0.25 MG PO ×2 (13:20→22:26)
--- NOTE | 2021-12-30 14:14 | CON.PCM.CC_ITS ---
Documented by User: Dr. Chino Kenny MD 12/30/21 16:54 Assessment & Plan Assessment/Plan (1) Acute and chronic respiratory failure with hypoxia: (2) Small cell lung cancer, overlapping sites of right lung: PLAN: Plan RECOMMENDATIONS: 1. Wean oxygen as tolerated to maintain oxygen saturation greater than 90%. 2. Begin vest therapy and mucolytic to help mobilize secretions. 3. May need outpatient evaluation for possible endobronchial stent 4. Encourage incentive spirometer to increase recruitment. 5. Will need ambulatory pulse ox prior to discharge. IMPRESSIONS: 1. Acute and chronic respiratory failure with hypoxia secondary to rhinovirus with underlying lung disease Patient continues to require high level of oxygen using Airvo. Patient did not tolerate BiPAP well due to inducing cough and anxiety. Patient states that she has had cough but with only one episode of productive sputum, which was yellow in color. Recommend vest therapy to help mobilize secretions in the event there is a mucous plug component to the right lower lobe collapse. Unfortunately, rhinovirus will have to run its course. May have protracted hospitalization. Continue scheduled bronchodilators and steroid therapy. Oncology has also been consulted for input. Patient may need an evaluation by interventional pulmonary as an outpatient for an endobronchial stent. Patient may need supplemental oxygen on discharge. 2. History of COPD, small cell lung cancer, pleural effusion, tobacco abuse, morbid obesity, DM 2, hypertension. Complicates care, management, recovery and prognosis. Okay to continue home medications as indicated. Continue with bronchodilators HPI Consult Data Date of Consult: 12/30/21 HPI Narrative HPI Narrative: OLENA HEALY, is a 66 F, with past medical history as outlined below, who presented to the emergency department on 12/25/2021 for shortness of breath had been progressively increasing over the previous week. Patient is a smoker with history of COPD and small cell lung cancer, diagnosed in February 2021, and wears 2 L of O2 as needed at home and at night. The patient received chemotherapy from February to June 2021. 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 Patient then began high-dose steroid regimen, which was completed as of her oncology visit on 12/19/2021. Over the past week, the patient reported that even wearing the oxygen continuously or increasing to 3 L, her shortness of breath persisted and cough developed. This prompted the patient to call EMS who found her hypoxic and transported her to the emergency department on 15 L of O2. The patient reports chest pain with coughing, but denied fever or chills or recent sick contacts. In the emergency department, the patient arrived with temperature of 98.6, blood pressure of 133/78, heart rate of 104, respiratory rate 25, and requiring 15 L to maintain oxygen saturation of 95%. CBC showed leukocytosis with WBCs of 11.6 and left shift with neutrophils at 86%. Hemoglobin able at 15. Hematocrit at 48%, consistent with patient baseline and likely secondary polycythemia. Sodium was low at 134 and potassium at 2.9. Creatinine was elevated at 1.06. Normal at D1, and BNP at 81.7.EKG demonstrated sinus tachycardia with first-degree AV block and occasional PVC. Patient was negative for COVID and influenza, but was positive for rhinovirus. CTA of the chest demonstrated no evidence of pulmonary embolism, but did show progressive enlargement of the right paratracheal and right hilar masses with postobstructive volume loss and pneumonitis in the right lower lobe. The patient was able to be transition to high flow oxygen at 12 L and was admitted to the progressive care unit for further management. The patient continued to have high oxygen requirement with nasal cannula, eventually began requiring high flow oxygen on 12/27. Today the patient became increasingly dyspneic and pulmonary was consulted. On my evaluation, the patient is sitting upright in the chair, tripoding, but able to speak in complete sentences. The patient had brief episode of using BiPAP earlier today, but states that this dried her out and caused me to start coughing and I panicked. The patient is 95% on high flow oxygen and feels ok. Patient states that at home she normally does sleep in a chair, as she is not able to breathe laying down at baseline. The patient states that at this time she has minimal coughing, but has had 1 episode of coughing up yellow sputum. The patient has rhinorrhea, but attributes this to the high flow oxygen. Otherwise, the patient denies pain. The patient reports chronic lower extremity edema but is unable to elevate her legs at baseline, due to her breathing. Patient reportedly had tolerated chemotherapy previously, but developed pneumonitis with immunotherapy. Patient reportedly has not received any therapy in the last 3 months because of this reason. Patient has not followed up with pulmonary as she has been established with Dr. Banda in the past. Review of systems otherwise negative from a constitutional, HEENT, respiratory, cardiovascular, GI, genitourinary, musculoskeletal, skin, neurologic, psychiatric and hematologic system unless stated above. [facility] Medical History Abdominal panniculus, symptomatic Abnormal stress test Abscess of abdominal wall Abscess of left breast NATHALIE (acute kidney injury) Anxiety Anxiety state Atherosclerotic heart disease of [place] coronary artery without angina pectoris CINV (chemotherapy-induced nausea and vomiting) Cough Depression Diarrhea Diverticulosis Encephalitis Essential hypertension History of DVT (deep vein thrombosis) History of uterine cancer Hypokalemia Iron deficiency anemia Malignant pleural effusion Morbid obesity Necrotizing soft tissue infection Old myocardial infarction Open wound of right lower quadrant of abdominal wall without penetration into peritoneal cavity Pure hypercholesterolemia Regional lymph node metastasis present Tobacco use disorder Traumatic hematoma of abdominal wall Traumatic hematoma of female breast Type 2 diabetes mellitus Ulcer of abdomen wall with fat layer exposed Wheezing Wound of left breast Home Medications sertraline 100 mg tablet 100 mg PO DAILY DEPRESSION 07/02/17 [History Last Taken 12/24/21] bupropion HCl 300 mg 24 hr tablet, extended release 300 mg PO DAILY DEPRESSION 07/20/18 [History Last Taken 12/24/21] clopidogrel 75 mg tablet 75 mg PO DAILY BLOOD THINNER 08/18/18 [History Last Taken 12/24/21] simvastatin 20 mg tablet 20 mg PO QHS cholesterol 08/18/18 [History Last Taken 12/24/21] losartan 100 mg tablet 100 mg PO DAILY BLOOD PRESSURE 10/31/19 [History Last Taken 12/24/21] carvedilol 6.25 mg tablet 6.25 mg PO BID BLOOD PRESSURE 12/08/20 [History Last Taken 12/24/21] ondansetron HCl 4 mg tablet 8 mg PO Q8H PRN nausea and vomiting #20 tabs 03/12/21 [Rx Last Taken Unknown] lorazepam 0.5 mg tablet 0.5 mg PO Q6H PRN PRN Anxiety 03/17/21 [History Last Taken Unknown] hydrochlorothiazide 25 mg tablet 25 mg PO MOTUTHFRSA BLOOD PRESSURE 04/23/21 [History Last Taken 12/24/21] fluticasone fur. 200 mcg-umeclid 62.5 mcg-vilant 25 mcg inhalat.powder (Trelegy Ellipta) 1 inh inhalation DAILY #60 ea 11/19/21 [Rx Last Taken 12/24/21] loperamide 2 mg tablet (Imodium A-D) 2 mg PO Q6H PRN Diarrhea 11/19/21 [History Last Taken 12/24/21] isosorbide mononitrate 30 mg tablet,extended release 24 hr 30 mg PO DAILY CHEST PAIN 12/25/21 [History Last Taken 12/24/21] pantoprazole 20 mg tablet,delayed release (Protonix) 20 mg PO DAILY ACID REFLUX 12/25/21 [History Last Taken 12/24/21] Allergy/AdvReac Type Severity Reaction Status Date / Time cephalexin [From Keflex] Allergy Severe Rash Verified 12/25/21 12:17 levofloxacin [From Levaquin] Allergy Severe Rash Verified 12/25/21 12:17 niacin Allergy Severe Rash Verified 12/25/21 12:17 Penicillins Allergy Severe Anaphylaxis Verified 12/25/21 12:17 Sulfa (Sulfonamide Allergy Severe Rash Verified 12/25/21 12:17 Antibiotics) citalopram [From Celexa] AdvReac Severe Rash Verified 12/25/21 12:17 Estrogens AdvReac Severe blood clots Verified 12/25/21 12:17 rosuvastatin [From Crestor] AdvReac Severe myalgias Verified 12/25/21 12:17 oral contraceptives AdvReac Severe Unknown Uncoded 12/25/21 12:17 Family History Father CAD (coronary artery disease) Cancer Prostate and Bladder Mother CVA (cerebral vascular accident) Hypertension Surgical History Aortocoronary bypass status (~10/31/11) History of tonsillectomy History of total hysterectomy History of total mastectomy of left breast (~08/2018) History of tubal ligation Social History household members: spouse Smoking Status: Current every day smoker tobacco type: cigarettes Electronic Cigarette Use: not used second hand exposure: Yes quit status: considering quitting alcohol intake: never substance use type: does not use Physical Exam Const Constitutional Narrative: Obese white female sitting in chair with Airvo in place. Appears older than stated age. Mild conversational dyspnea General Appearance: in distress Positive for mild Medical Records Data Medical Nutrition Assessment Dietitian: Malnutrition Criteria Met Start: 12/26/21 16:39 Freq: Status: Active Protocol: Document 12/29/21 11:22 RMA (Rec: 12/29/21 11:22 RMA [id number]) Nutrition Malnutrition Evidence of Malnutrition Exists Yes Malnutrition (severe): Chronic Evidenced By Suboptimal Energy Intake ( Severe),Weight Loss (Severe) Clinical Problem Chronic Disease or Condition Related Malnutrition Etiology Protein-calorie malnutrition in the context of chronic malignant disease related to increased energy expenditure and inadequate oral intake Signs/Symptoms as evidenced by <50% PO intake of estimated energy needs for >1 month and 5.6% weight loss in 1 month. Status Active Problem Recommendation Dietitian Recommendations/Changes Continue Regular diet to optimize oral intakes. Lab / Micro Data Result Diagrams: 12/30/21 04:35 12/30/21 04:35 Labs: Laboratory Results - last 24 hr 12/30/21 04:35: WBC 10.5, RBC 6.31 H, Hgb 15.0, Hct 50.9 H, MCV 80.7 L, MCH 23.8 L, MCHC 29.5 L, RDW Std Deviation 51.1 H, RDW Coeff of Melina 18.4 H, Plt Count 203, MPV 10.8, Immature Gran % (Auto) 0.600, Neut % (Auto) 89.5 H, Lymph % (Auto) 5.0 L, Woods % (Auto) 4.8, Eos % (Auto) 0.0, Baso % (Auto) 0.1, Absolute Neuts (auto) 9.4 H, Absolute Lymphs (auto) 0.52 L, Nucleated RBC % 0, Anisocytosis 1+, Microcytosis RARE 12/30/21 04:35: Sodium 142, Potassium 4.1, Chloride 104, Carbon Dioxide 35.0 H, Anion Gap 3 L, BUN 24 H, Creatinine 0.67, Estim Creat Clear Calc 45.78, Est GFR (MDRD) Af Amer 113, Est GFR (MDRD) Non-Af 93, BUN/Creatinine Ratio 35.7 H, Glucose 138 H, Calcium 10.1 Charges/Coding Visit Charges Inpatient E&M: 77539 Init Hosp L3 Documented by User: CHON JOHNSON 12/30/21 15:46 Assessment & Plan Assessment/Plan (1) Acute and chronic respiratory failure with hypoxia: (2) Small cell lung cancer, overlapping sites of right lung: PLAN: Plan RECOMMENDATIONS: 1. Wean oxygen as tolerated to maintain oxygen saturation greater than 90%. 2. Begin vest therapy to help mobilize secretions. 3. Begin PEP therapy to help mobilize secretions. 4. Encourage incentive spirometer to increase recruitment. 5. Will need ambulatory pulse ox prior to discharge. IMPRESSIONS: 1. Acute and chronic respiratory failure with hypoxia secondary to rhinovirus with underlying lung disease Patient continues to require high level of oxygen using Airvo. Patient did not tolerate BiPAP well due to inducing cough and anxiety. Patient states that she has had cough but with only one episode of productive sputum, which was yellow in color. Recommend vest therapy to help mobilize secretions in the event there is a mucous plug component to the right lower lobe collapse. Continue scheduled bronchodilators and steroid therapy. Oncology has also been consulted for input. 2. History of COPD, small cell lung cancer, pleural effusion, tobacco abuse, obesity, DM 2, hypertension. Complicates care, management, recovery and prognosis. Okay to continue home medications as indicated. HPI Consult Data Date of Consult: 12/30/21 HPI Narrative Reason for Consultation: Respiratory failure HPI Narrative: OLENA HEALY, is a 66 F, with past medical history as outlined below, who presented to the emergency department on 12/25/2021 for shortness of breath had been progressively increasing over the previous week. Patient is a smoker with history of COPD and small cell lung cancer, diagnosed in February 2021, and wears 2 L of O2 as needed at home and at night. The patient received chemotherapy from February to June 2021. 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 Patient then began high-dose steroid regimen, which was completed as of her oncology visit on 12/19/2021. Over the past week, the patient reported that even wearing the oxygen continuously or increasing to 3 L, her shortness of breath persisted and cough developed. This prompted the patient to call EMS who found her hypoxic and transported her to the emergency department on 15 L of O2. The patient reports chest pain with coughing, but denied fever or chills or recent sick contacts. In the emergency department, the patient arrived with temperature of 98.6, blood pressure of 133/78, heart rate of 104, respiratory rate 25, and requiring 15 L to maintain oxygen saturation of 95%. CBC showed leukocytosis with WBCs of 11.6 and left shift with neutrophils at 86%. Hemoglobin able at 15. Hematocrit at 48%, consistent with patient baseline and likely secondary polycythemia. Sodium was low at 134 and potassium at 2.9. Creatinine was elevated at 1.06. Normal at D1, and BNP at 81.7.EKG demonstrated sinus tachycardia with first-degree AV block and occasional PVC. Patient was negative for COVID and influenza, but was positive for rhinovirus. CTA of the chest demonstrated no evidence of pulmonary embolism, but did show progressive enlargement of the right paratracheal and right hilar masses with postobstructive volume loss and pneumonitis in the right lower lobe. The patient was able to be transition to high flow oxygen at 12 L and was admitted to the progressive care unit for further management. The patient continued to have high oxygen requirement with nasal cannula, eventually began requiring high flow oxygen on 12/27. Today the patient became increasingly dyspneic and pulmonary was consulted. On my evaluation, the patient is sitting upright in the chair, tripoding, but able to speak in complete sentences. The patient had brief episode of using BiPAP earlier today, but states that this dried her out and caused me to start coughing and I panicked. The patient is 95% on high flow oxygen and feels ok. Patient states that at home she normally does sleep in a chair, as she is not able to breathe laying down at baseline. The patient states that at this time she has minimal coughing, but has had 1 episode of coughing up yellow sputum. The patient has rhinorrhea, but attributes this to the high flow oxygen. Otherwise, the patient denies pain. The patient reports chronic lower extremity edema but is unable to elevate her legs at baseline, due to her breathing. [facility] Medical History Abdominal panniculus, symptomatic Abnormal stress test Abscess of abdominal wall Abscess of left breast NATHALIE (acute kidney injury) Anxiety Anxiety state Atherosclerotic heart disease of [place] coronary artery without angina pectoris CINV (chemotherapy-induced nausea and vomiting) Cough Depression Diarrhea Diverticulosis Encephalitis Essential hypertension History of DVT (deep vein thrombosis) History of uterine cancer Hypokalemia Iron deficiency anemia Malignant pleural effusion Morbid obesity Necrotizing soft tissue infection Old myocardial infarction Open wound of right lower quadrant of abdominal wall without penetration into peritoneal cavity Pure hypercholesterolemia Regional lymph node metastasis present Tobacco use disorder Traumatic hematoma of abdominal wall Traumatic hematoma of female breast Type 2 diabetes mellitus Ulcer of abdomen wall with fat layer exposed Wheezing Wound of left breast Home Medications sertraline 100 mg tablet 100 mg PO DAILY DEPRESSION 07/02/17 [History Last Taken 12/24/21] bupropion HCl 300 mg 24 hr tablet, extended release 300 mg PO DAILY DEPRESSION 07/20/18 [History Last Taken 12/24/21] clopidogrel 75 mg tablet 75 mg PO DAILY BLOOD THINNER 08/18/18 [History Last Taken 12/24/21] simvastatin 20 mg tablet 20 mg PO QHS cholesterol 08/18/18 [History Last Taken 12/24/21] losartan 100 mg tablet 100 mg PO DAILY BLOOD PRESSURE 10/31/19 [History Last Taken 12/24/21] carvedilol 6.25 mg tablet 6.25 mg PO BID BLOOD PRESSURE 12/08/20 [History Last Taken 12/24/21] ondansetron HCl 4 mg tablet 8 mg PO Q8H PRN nausea and vomiting #20 tabs 03/12/21 [Rx Last Taken Unknown] lorazepam 0.5 mg tablet 0.5 mg PO Q6H PRN PRN Anxiety 03/17/21 [History Last Taken Unknown] hydrochlorothiazide 25 mg tablet 25 mg PO MOTUTHFRSA BLOOD PRESSURE 04/23/21 [History Last Taken 12/24/21] fluticasone fur. 200 mcg-umeclid 62.5 mcg-vilant 25 mcg inhalat.powder (Trelegy Ellipta) 1 inh inhalation DAILY #60 ea 11/19/21 [Rx Last Taken 12/24/21] loperamide 2 mg tablet (Imodium A-D) 2 mg PO Q6H PRN Diarrhea 11/19/21 [History Last Taken 12/24/21] isosorbide mononitrate 30 mg tablet,extended release 24 hr 30 mg PO DAILY CHEST PAIN 12/25/21 [History Last Taken 12/24/21] pantoprazole 20 mg tablet,delayed release (Protonix) 20 mg PO DAILY ACID REFLUX 12/25/21 [History Last Taken 12/24/21] Allergy/AdvReac Type Severity Reaction Status Date / Time cephalexin [From Keflex] Allergy Severe Rash Verified 12/25/21 12:17 levofloxacin [From Levaquin] Allergy Severe Rash Verified 12/25/21 12:17 niacin Allergy Severe Rash Verified 12/25/21 12:17 Penicillins Allergy Severe Anaphylaxis Verified 12/25/21 12:17 Sulfa (Sulfonamide Allergy Severe Rash Verified 12/25/21 12:17 Antibiotics) citalopram [From Celexa] AdvReac Severe Rash Verified 12/25/21 12:17 Estrogens AdvReac Severe blood clots Verified 12/25/21 12:17 rosuvastatin [From Crestor] AdvReac Severe myalgias Verified 12/25/21 12:17 oral contraceptives AdvReac Severe Unknown Uncoded 12/25/21 12:17 Family History Father CAD (coronary artery disease) Cancer Prostate and Bladder Mother CVA (cerebral vascular accident) Hypertension Surgical History Aortocoronary bypass status (~10/31/11) History of tonsillectomy History of total hysterectomy History of total mastectomy of left breast (~08/2018) History of tubal ligation Social History household members: spouse Smoking Status: Current every day smoker tobacco type: cigarettes Electronic Cigarette Use: not used second hand exposure: Yes quit status: considering quitting alcohol intake: never substance use type: does not use ROS Constitutional Constitutional: Reports fatigue; Denies body ache(s), chills, fever(s), heada nick(s), malaise, night sweats or weakness Eyes Eyes: Denies blurry vision, change in vision or loss of vision ENT HEENT: Reports nasal discharge; Denies dizziness, dysphagia, epistaxis, headache(s), hoarseness, loss taste/smell, nasal congestion or sore throat Cardiovascular Cardiovascular: Reports dyspnea and edema; Denies chest pain, claudication, d izziness, irregular heart rhythm or lightheadedness Respiratory/Chest Respiratory/Chest: Reports cough, dyspnea and shortness of breath with exertion; Denies chest tightness, hemoptysis, pain on inspiration, snoring, wheezing or witnessed apneas Gastrointestinal Gastrointestinal: Denies abdominal pain, diarrhea, dyspepsia, dysphagia, heartburn, hematochezia, melena, nausea or vomiting Genitourinary Genitourinary: Denies difficulty urinating, dysuria, flank pain, hematuria, polyuria or urinary frequency Musculoskeletal Musculoskeletal: Denies arthralgias, back pain, joint pain or myalgias Integumentary Integumentary: Denies lesions, rash, skin ulcer or wounds Neurologic Neurologic: Denies abnormal gait, abnormal speech, confusion, focal weakness, loss of vision, seizure-like activity or syncope Psychiatric Psychiatric: Reports anxiety; Denies depression Endocrine Endocrinology: Reports fatigue; Denies polydipsia or polyuria Hematologic/Lymphatic Hematologic/Lymphatic: Denies easy bleeding or easy bruising Physical Exam Const alert, oriented x3 and no apparent distress Constitutional Narrative: Obese white female sitting in chair with Airvo in place. General Appearance: cooperative HEENT normocephalic, head/scalp atraumatic and moist oral mucous membranes Eyes PERRL, EOMs intact bilaterally and conjunctivae normal Neck no lymphadenopathy General: trachea midline Chest inspection of chest normal Chest Narrative: Mediport right chest. Resp normal respiratory effort Effort and Inspection: able to speak in complete sentences and tachypneic; Negative for actively coughing Auscultation: wheezes expiratory wheezes, inspiratory wheezes, left lower, left upper and right upper and diminished lung sounds right; Negative for rales or rhonchi Cardio regular rhythm, S1 normal heart sound, S2 normal heart sound, no murmurs, no rub and no gallops Rate: tachycardic GI normal to inspection, nondistended, normoactive bowel sounds GI Narrative: Obese abdomen Extremity Extremity Narrative: Vascular insufficiency of bilateral lower extremities General Extremity: edema bilateral lower extremity (3+ pitting) Skin Skin Narrative: Lichenification of bilateral lower extremity General Skin Exam: lichenification Neuro oriented x3, CN's II-XII intact bilaterally, moves all extremities and no focal motor deficits Speech: speech normal Psych cooperative and affect normal Lab / Micro Data Attestation: I reviewed the patient's lab results. Result Diagrams: 12/30/21 04:35 12/30/21 04:35
--- NOTE | 2021-12-30 15:22 | CHAPLAIN ---
Type of Pastoral Visit _x__ Initial Visit ___ Follow-up Visit ___ On-call Visit ___ General Patient Visit ___ Spiritual Assessment ___ Family Conference ___ Bereavement ___ Rapid Response ___ Code Blue ___ Other (describe below) Pastoral Care Referral From ___ Patient _x__ Family ___ Nurse ___ Physician ___ Infantryman ___ Molded Goods Embossing Press Operator ___ Other (describe below) Sacrament/Intervention _x__ Active listening ___ Anointing ___ Sikhism ___ Bereavement ___ Communion _x__ Hannah exploration ___ _x__ Life review _x__ Prayer ___ Reconciliation ___ Sacrament of Sick _x__ Supportive presence ___ Wedding ___ Other (describe below) Pastoral Comments relative requested spiritual care support; pt is welcoming and describes her health situation, fears due to inability to breathe well, concerns about her spouse that is currently in a ECF, worries about the future for her sister with mental illness, and having no children for future support; pt does work and hopes to return to work which she loves to do; pt has questions of a spiritual nature that she is dealing with and expresses to this meteorology professor; pt given time to talk, explore feelings, and process through these issues; presence and prayer is welcomed; future visits would be beneficial
--- NOTE | 2021-12-30 16:13 | CON.PCM.ON_ITS ---
Assessment & Plan Assessment/Plan (1) Small cell lung cancer, overlapping sites of right lung: Status: Chronic Code(s): C34.81 - Malignant neoplasm of overlapping sites of right bronchus and lung Plan: The purpose of this consultation was to discussed with patient and family the prognosis in relation to her metastatic lung cancer. Having stage IV small cell lung cancer makes the disease incurable, goal of treatment is palliative with a modest survival benefit. Patient had received systemic therapy as summarized under HPI, she was in a good partial remission with significant symptomatic improvement when she developed treatment related toxicity (immune mediated colitis). Treatment was held patient treated with high-dose steroids and recovered. However in the antrum when she was off treatment she had some progression of her disease and was recently restarted on systemic therapy December 2021 when she was hospitalized with acute viral pneumonia. From the oncology point of view patient has a living will in which she did not wish any life support measures or resuscitation which are appropriate for a patient with her stage of cancer. Treatment of acute rhinoviral pneumonia is supportive as per the primary service. If she were to recover from this acute setback she will be seen in the outpatient clinic and resume her systemic anticancer therapy. Patient was seen with her [id number]. Impression and plan from the oncology view discussed. (2) Malignant pleural effusion: Status: Chronic Code(s): J91.0 - Malignant pleural effusion (3) Regional lymph node metastasis present: Status: Chronic Code(s): C77.9 - Secondary and unspecified malignant neoplasm of lymph node, unspecified (4) Liver lesion: Status: Chronic Code(s): K76.9 - Liver disease, unspecified HPI Consult Data Date of Service:: 12/30/21 PCP / Referring Provider: Manuel Mortensen Attending: Dr. Adam Saunders MD Chief Complaint Chief Complaint: Dyspnea History of Present Illness History of Present Illness: Patient was hospitalized December 25, 2021 with acute on chronic respiratory failure due to rhinovirus pneumonia. Patient's oncologic history notable for extensive stage small cell lung cancer that presented with dyspnea and a malignant right-sided pleural effusion in February 2021. She was treated with induction systemic chemo immune therapy (carboplatin, etoposide and atezolizumab) February - June 2021 and went into a good partial remission. She was placed on atezolizumab maintenance July through October 2021 when she developed immune mediated colitis 1 systemic therapy was put on hold and she was treated with high-dose steroids. She eventually recov ered and was weaned off of steroids and resumed immune therapy in December 2021 prior to presenting to the emergency room pneumonia. 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 of Mechanical Operator: Yes Living Will: Yes [facility] Medical History Abdominal panniculus, symptomatic Abnormal stress test Abscess of abdominal wall Abscess of left breast NATHALIE (acute kidney injury) Anxiety Anxiety state Atherosclerotic heart disease of [place] coronary artery without angina pectoris CINV (chemotherapy-induced nausea and vomiting) Cough Depression Diarrhea Diverticulosis Encephalitis Essential hypertension History of DVT (deep vein thrombosis) History of uterine cancer Hypokalemia Iron deficiency anemia Malignant pleural effusion Morbid obesity Necrotizing soft tissue infection Old myocardial infarction Open wound of right lower quadrant of abdominal wall without penetration into peritoneal cavity Pure hypercholesterolemia Regional lymph node metastasis present Tobacco use disorder Traumatic hematoma of abdominal wall Traumatic hematoma of female breast Type 2 diabetes mellitus Ulcer of abdomen wall with fat layer exposed Wheezing Wound of left breast Home Medications sertraline 100 mg tablet 100 mg PO DAILY DEPRESSION 07/02/17 [History Last Taken 12/24/21] bupropion HCl 300 mg 24 hr tablet, extended release 300 mg PO DAILY DEPRESSION 07/20/18 [History Last Taken 12/24/21] clopidogrel 75 mg tablet 75 mg PO DAILY BLOOD THINNER 08/18/18 [History Last Taken 12/24/21] simvastatin 20 mg tablet 20 mg PO QHS cholesterol 08/18/18 [History Last Taken 12/24/21] losartan 100 mg tablet 100 mg PO DAILY BLOOD PRESSURE 10/31/19 [History Last Taken 12/24/21] carvedilol 6.25 mg tablet 6.25 mg PO BID BLOOD PRESSURE 12/08/20 [History Last Taken 12/24/21] ondansetron HCl 4 mg tablet 8 mg PO Q8H PRN nausea and vomiting #20 tabs 03/12/21 [Rx Last Taken Unknown] lorazepam 0.5 mg tablet 0.5 mg PO Q6H PRN PRN Anxiety 03/17/21 [History Last Taken Unknown] hydrochlorothiazide 25 mg tablet 25 mg PO MOTUTHFRSA BLOOD PRESSURE 04/23/21 [History Last Taken 12/24/21] fluticasone fur. 200 mcg-umeclid 62.5 mcg-vilant 25 mcg inhalat.powder (Trelegy Ellipta) 1 inh inhalation DAILY #60 ea 11/19/21 [Rx Last Taken 12/24/21] loperamide 2 mg tablet (Imodium A-D) 2 mg PO Q6H PRN Diarrhea 11/19/21 [History Last Taken 12/24/21] isosorbide mononitrate 30 mg tablet,extended release 24 hr 30 mg PO DAILY CHEST PAIN 12/25/21 [History Last Taken 12/24/21] pantoprazole 20 mg tablet,delayed release (Protonix) 20 mg PO DAILY ACID REFLUX 12/25/21 [History Last Taken 12/24/21] Allergy/AdvReac Type Severity Reaction Status Date / Time cephalexin [From Keflex] Allergy Severe Rash Verified 12/25/21 12:17 levofloxacin [From Levaquin] Allergy Severe Rash Verified 12/25/21 12:17 niacin Allergy Severe Rash Verified 12/25/21 12:17 Penicillins Allergy Severe Anaphylaxis Verified 12/25/21 12:17 Sulfa (Sulfonamide Allergy Severe Rash Verified 12/25/21 12:17 Antibiotics) citalopram [From Celexa] AdvReac Severe Rash Verified 12/25/21 12:17 Estrogens AdvReac Severe blood clots Verified 12/25/21 12:17 rosuvastatin [From Crestor] AdvReac Severe myalgias Verified 12/25/21 12:17 oral contraceptives AdvReac Severe Unknown Uncoded 12/25/21 12:17 Family History Father CAD (coronary artery disease) Cancer Prostate and Bladder Mother CVA (cerebral vascular accident) Hypertension Surgical History Aortocoronary bypass status (~10/31/11) History of tonsillectomy History of total hysterectomy History of total mastectomy of left breast (~08/2018) History of tubal ligation Social History household members: spouse Smoking Status: Current every day smoker tobacco type: cigarettes Electronic Cigarette Use: not used second hand exposure: Yes quit status: considering quitting alcohol intake: never substance use type: does not use ROS ROS Narrative Overall patient feels a bit better since admission Constitutional Constitutional: Denies fever(s) Respiratory/Chest Respiratory/Chest: Reports dyspnea and wheezing; Denies hemoptysis Gastrointestinal Gastrointestinal: Reports other; Denies abdominal pain or diarrhea Physical Exam Const alert and oriented x3 Vital Signs Temperature 96.9 F L 12/30/21 13:30 Temperature Source Temporal 12/30/21 13:30 Pulse Rate 89 12/30/21 13:30 Pulse Strength Weak (1+) 12/30/21 07:50 Respiratory Rate 23 H 12/30/21 13:30 Respiratory Effort 12/30/21 07:51 Respiratory Depth Normal 12/30/21 07:51 Respiratory Pattern Normal 12/30/21 09:46 Blood Pressure 159/85 H 12/30/21 13:30 Blood Pressure Mean 109 12/30/21 13:30 Blood Pressure Source Monitor 12/30/21 13:30 Blood Pressure Position Sitting 12/30/21 13:30 Blood Pressure Location Right Arm 12/30/21 13:30 Pulse Ox 97 12/30/21 13:30 Oxygen Delivery Method Airvo 12/30/21 13:30 Oxygen Flow Rate (L/min) 60 12/30/21 11:30 Fraction of Inspired Oxygen (FIO2) 70 12/30/21 13:30 Laboratory Results - last 24 hr 12/30/21 04:35: WBC 10.5, RBC 6.31 H, Hgb 15.0, Hct 50.9 H, MCV 80.7 L, MCH 23.8 L, MCHC 29.5 L, RDW Std Deviation 51.1 H, RDW Coeff of Melina 18.4 H, Plt Count 203, MPV 10.8, Immature Gran % (Auto) 0.600, Neut % (Auto) 89.5 H, Lymph % (Auto) 5.0 L, [place] % (Auto) 4.8, Eos % (Auto) 0.0, Baso % (Auto) 0.1, Absolute Neuts (auto) 9.4 H, Absolute Lymphs (auto) 0.52 L, Nucleated RBC % 0, Anisocytosis 1+, Microcytosis RARE 12/30/21 04:35: Sodium 142, Potassium 4.1, Chloride 104, Carbon Dioxide 35.0 H, Anion Gap 3 L, BUN 24 H, Creatinine 0.67, Estim Creat Clear Calc 45.78, Est GFR (MDRD) Af Amer 113, Est GFR (MDRD) Non-Af 93, BUN/Creatinine Ratio 35.7 H, Glucose 138 H, Calcium 10.1 Diagnostic Data Chest X-Ray 12/25/21 13:30 IMPRESSION: Right paratracheal and right hilar mass with the consolidation and/or postobstructive atelectasis in the right upper lobe. Electronically Signed: Raza Keita MD at 14:32 EST , Chest CTA 12/25/21 13:36 IMPRESSION: Progressive enlargement of the right paratracheal and right hilar masses with postobstructive volume loss and pneumonitis in the right lower lobe. Increased markings are also seen in the right upper lobe. Patchy airspace disease also seen in the left hemithorax with evidence of pulmonary nodules. No evidence of pulmonary embolism. Electronically Signed: Raza Keita MD at 14:54 EST ,
[2021-12-30] MEDS: guaiFENesin 1,200 MG Tablet 1200 MG PO ×2 (17:28→22:19)
--- NOTE | 2021-12-30 19:30 | CPS ---
Patient did not want to do the vest therapy at this time. Will try again later this evening.
[2021-12-30] MEDS: Acetaminophen 325 MG Tablet 650 MG PO (20:57)
[2021-12-30] MEDS: Atorvastatin Calcium 10 MG Tablet PO (22:26)
--- NOTE | 2021-12-30 23:33 | CPS ---
patient requests that vest treatments be done during the day when she is awake
[2021-12-31] VITALS (18 sets, daily range): BP systolic 130–150; BP diastolic 71–89; PULSE 80–132; RESP 10–24; TEMP 36.2–36.6; O2SAT 92–100
[2021-12-31] MEDS: Ipratropium/Albuterol Sulfate 3 ML AMPUL.NEB INHALATION ×5 (03:51→23:10)
[2021-12-31] MEDS: Acetaminophen 325 MG Tablet 650 MG PO ×2 (05:45→22:16)
[2021-12-31 06:58] LABS: Absolute Lymphocyte Count 0.75 X10^3/uL (0.83-4.51); Absolute Neutrophil Count 7.8 X10^3/uL (2.0-7.7); Basophil# 0.01 X10^3/uL; Basophil% 0.1 % (0-1); Hematocrit 50.6 % (37-47); Hemoglobin 15.6 g/dL (12.0-15.0); Lymphocyte # 0.75 X10^3/ul (0.83-4.51); Lymphocyte % 8.3 % (19-41); Mean Corp Hgb Conc 30.8 g/dL (32-36); Mean Corpuscular Hgb 24.1 pg (27.0-32.0); Mean Corpuscular Volume 78.2 fL (81-99); Mean Platelet Vol. 10.3 fl (6.2-12.0); Monocyte# 0.47 X10^3/uL; Monocyte% 5.2 % (0-10); NRBC Flagged by Analyzer 0 % (0-5); Neutrophil # 7.78 X10^3/uL (2.7-7.7); Neutrophil % 85.6 % (47-70); Platelet Count 189 K/mm3 (150-450); RBC Distribution Width CV 18.3 % (11.6-14.6); RBC Distribution Width SD 48.7 fl (35.1-43.9); Red Blood Count 6.47 M/mm3 (4.2-5.4); White Blood Count 9.1 K/mm3 (4.4-11.0)
[2021-12-31 07:25] LABS: ALB/GLOB Ratio 0.6 RATIO (0.9-2.4); AST(SGOT) 16 U/L (15-37); Alanine Aminotransfer ALT/SGPT 20 U/L (13-56); Albumin, Serum 2.5 g/dL (3.2-5.0); Alkaline Phosphatase 91 U/L (45-117); Anion Gap 5 (5-15); BUN 21 mg/dL (7-18); BUN/Creat Ratio 28.9 RATIO (10-20); Calcium,Total 10.2 mg/dL (8.5-10.1); Chloride 98 mmol/L (98-107); Creatinine, Serum 0.73 mg/dL (0.55-1.02); EST Glomerular Filtration Rate 85 mL/min (>60); Est Glom Filt Rate - Afr Amer 103 mL/min (>60); Estimated Creatinine Clearance 45.78 ml/min; Glucose 126 mg/dL (74-106); Potassium 4.6 mmol/L (3.5-5.1); Protein, Total 6.5 g/dL (6.4-8.2); Sodium Level 137 mmol/L (136-145)
--- NOTE | 2021-12-31 08:29 | PN.CC_ITS ---
Documented by User: Dr. Chino Kenny MD 12/31/21 16:24 Assessment & Plan Assessment/Plan (1) Acute and chronic respiratory failure with hypoxia: (2) Small cell lung cancer, overlapping sites of right lung: PLAN: Plan RECOMMENDATIONS: 1. Wean oxygen as tolerated to maintain oxygen saturation greater than 90%. 2. Continue vest therapy and mucolytic to help mobilize secretions. 3. May need outpatient evaluation for possible endobronchial stent 4. Encourage incentive spirometer to increase recruitment. 5. Will need ambulatory pulse ox prior to discharge. IMPRESSIONS: 1. Acute and chronic respiratory failure with hypoxia secondary to rhinovirus with underlying lung disease Patient continues to require high level of oxygen using Airvo. Patient was able to tolerate BiPAP for a few hours overnight. Patient states that she has begun to have increased rhinorrhea with yellow/clear discharge. Continue vest therapy to help mobilize secretions in the event there is a mucous plug component to the right lower lobe collapse. Patient appears to responding well to current therapy. Unfortunately, rhinovirus will have to run its course. May have protracted hospitalization. Continue scheduled bronchodilators and steroid therapy. Oncology has also been consulted for input. Patient may need an evaluation by interventional pulmonary as an outpatient for an endobronchial stent. Patient may need supplemental oxygen on discharge. Patient may benefit from BiPAP with sleep. Patient very clear that she would not want to be intubated if necessary. 2. History of COPD, small cell lung cancer, pleural effusion, tobacco abuse, morbid obesity, DM 2, hypertension. Complicates care, management, recovery and prognosis. Okay to continue home medications as indicated. Continue with bronchodilators Subjective Subjective Patient is sitting upright in chair but awakens readily to voice. Airvo in place. Patient reports decreased anxiety and ability to take deeper breaths. Patient subjectively feels improved compared to yesterday. Patient does believe the vest is making a significant improvement in her ability to expectorate sputum. Objective Data Objective Data Vital Signs: Vital Signs Temp Pulse Resp BP Pulse Ox O2 Del Method O2 Flow Rate 36.4 C L 83 20 H 138/71 H 95 Airvo 60 12/31/21 01:57 12/31/21 07:32 12/31/21 07:30 12/31/21 01:57 12/31/21 07:28 12/31/21 07:28 12/31/21 07:28 FiO2 60 12/31/21 07:28 Oxygen Flow Rate (L/min) 60 Oxygen Delivery Method Airvo Weight: 122.6 kg Body Mass Index (BMI) 46.7 Intake & Output: Intake and Output for Last 24 Hours 12/29/21 12/30/21 12/31/21 23:59 23:59 23:59 Intake Total 1260 / 1560 1830 / 1930 220 / 220 Balance 1260 / 1560 1830 / 1930 220 / 220 Medical Nutrition Assessment Dietitian: Malnutrition Criteria Met Start: 12/26/21 16:39 Freq: Status: Active Protocol: Document 12/29/21 11:22 RMA (Rec: 12/29/21 11: RMA [id number]) Nutrition Malnutrition Evidence of Malnutrition Exists Yes Malnutrition (severe): Chronic Evidenced By Suboptimal Energy Intake ( Severe),Weight Loss (Severe) Clinical Problem Chronic Disease or Condition Related Malnutrition Etiology Protein-calorie malnutrition in the context of chronic malignant disease related to increased energy expenditure and inadequate oral intake Signs/Symptoms as evidenced by <50% PO intake of estimated energy needs for >1 month and 5.6% weight loss in 1 month. Status Active Problem Recommendation Dietitian Recommendations/Changes Continue Regular diet to optimize oral intakes. Lab / Micro Data Attestation: I reviewed the patient's lab results. Result Diagrams: 12/31/21 06:40 12/31/21 06:40 Labs: Laboratory Results - last 24 hr 12/31/21 06:40: WBC 9.1, RBC 6.47 H, Hgb 15.6 H, Hct 50.6 H, MCV 78.2 L, MCH 24.1 L, MCHC 30.8 L, RDW Std Deviation 48.7 H, RDW Coeff of [place] 18.3 H, Plt Count 189, MPV 10.3, Immature Gran % (Auto) 0.800, Neut % (Auto) 85.6 H, Lymph % (Auto) 8.3 L, [place] % (Auto) 5.2, Eos % (Auto) 0.0, Baso % (Auto) 0.1, Absolute Neuts (auto) 7.8 H, Absolute Lymphs (auto) 0.75 L, Nucleated RBC % 0 12/31/21 06:40: Sodium 137, Potassium 4.6, Chloride 98, Carbon Dioxide 34.0 H, Anion Gap 5, BUN 21 H, Creatinine 0.73, Estim Creat Clear Calc 45.78, Est GFR (MDRD) Af Amer 103, Est GFR (MDRD) Non-Af 85, BUN/Creatinine Ratio 28.9 H, Glucose 126 H, Calcium 10.2 H, Total Bilirubin 0.30, AST 16, ALT 20, Alkaline Phosphatase 91, Total Protein 6.5, Albumin 2.5 L, Globulin 4.0, Albumin/Globulin Ratio 0.6 L Micro: Microbiology 12/26/21 14:35 Interface Orders Legionella Antigen - Final 12/26/21 14:35 Interface Orders Streptococcus pneumoniae Antigen (M - Final 12/25/21 16:35 Mucosa - Nasopharyngeal Respiratory Panel (PCR) - Final Rhinovirus 12/25/21 16:35 Mucosa - Nasopharyngeal Influenza Types A,B Direct FA (RSOEANNA) - Final Physical Exam Const alert and oriented x3 Constitutional Narrative: Obese white female sitting in chair with Airvo in place. Appears older than stated age. Mild conversational dyspnea General Appearance: cooperative and in distress Positive for mild HEENT normocephalic, head/scalp atraumatic and moist oral mucous membranes Eyes PERRL, EOMs intact bilaterally and conjunctivae normal Neck no lymphadenopathy General: trachea midline Chest inspection of chest normal Chest Narrative: Mediport right chest. Resp normal respiratory effort Effort and Inspection: tachypneic; Negative for actively coughing Auscultation: wheezes expiratory wheezes, inspiratory wheezes, left lower, left upper and right upper and diminished lung sounds right; Negative for rales or rhonchi Cardio regular rhythm, S1 normal heart sound, S2 normal heart sound, no murmurs, no rub and no gallops Rate: tachycardic GI normal to inspection, nondistended, normoactive bowel sounds GI Narrative: Obese abdomen Extremity Extremity Narrative: Vascular insufficiency of bilateral lower extremities General Extremity: edema bilateral lower extremity (3+ pitting) Skin Skin Narrative: Lichenification of bilateral lower extremity General Skin Exam: lichenification Neuro oriented x3, CN's II-XII intact bilaterally, moves all extremities and no focal motor deficits Speech: speech normal Psych cooperative and affect normal Charges/Coding Visit Charges Inpatient E&M: 31490 Subs Hosp L3 Documented by User: CHON [email or web address] 12/31/21 10:13 Assessment & Plan Assessment/Plan (1) Acute and chronic respiratory failure with hypoxia: (2) Small cell lung cancer, overlapping sites of right lung: PLAN: Plan RECOMMENDATIONS: 1. Wean oxygen as tolerated to maintain oxygen saturation greater than 90%. 2. Continue vest therapy and mucolytic to help mobilize secretions. 3. May need outpatient evaluation for possible endobronchial stent 4. Encourage incentive spirometer to increase recruitment. 5. Will need ambulatory pulse ox prior to discharge. IMPRESSIONS: 1. Acute and chronic respiratory failure with hypoxia secondary to rhinovirus with underlying lung disease Patient continues to require high level of oxygen using Airvo. Patient was able to tolerate BiPAP for a few hours overnight. Patient states that she has begun to have increased rhinorrhea with yellow/clear discharge. Continue vest therapy to help mobilize secretions in the event there is a mucous plug component to the right lower lobe collapse. Unfortunately, rhinovirus will have to run its course. May have protracted hospitalization. Continue scheduled bronchodilators and steroid therapy. Oncology has also been consulted for input. Patient may need an evaluation by interventional pulmonary as an outpatient for an endobronchial stent. Patient may need supplemental oxygen on discharge. 2. History of COPD, small cell lung cancer, pleural effusion, tobacco abuse, morbid obesity, DM 2, hypertension. Complicates care, management, recovery and prognosis. Okay to continue home medications as indicated. Continue with bronchodilators Subjective Subjective Patient is sitting upright in chair but awakens readily to voice. Airvo in place. Patient reports decreased anxiety and ability to take deeper breaths. Objective Data Lab / Micro Data Attestation: I reviewed the patient's lab results. Result Diagrams: 12/31/21 06:40 12/31/21 06:40 Physical Exam Const alert and oriented x3 General Appearance: cooperative HEENT normocephalic, head/scalp atraumatic and moist oral mucous membranes Eyes PERRL, EOMs intact bilaterally and conjunctivae normal Neck no lymphadenopathy General: trachea midline Chest inspection of chest normal Chest Narrative: Mediport right chest. Resp normal respiratory effort Effort and Inspection: tachypneic; Negative for actively coughing Auscultation: rales left throughout, wheezes expiratory wheezes, inspiratory wheezes, left lower, left upper and right upper and diminished lung sounds right; Negative for rhonchi Cardio regular rate, regular rhythm, S1 normal heart sound, S2 normal heart sound, no murmurs, no rub and no gallops GI normal to inspection, nondistended, normoactive bowel sounds Extremity General Extremity: edema bilateral lower extremity (3+ pitting.) Skin General Skin Exam: lichenification Neuro oriented x3, CN's II-XII intact bilaterally, moves all extremities and no focal motor deficits Speech: speech normal Psych cooperative and affect normal
[2021-12-31] MEDS: Pantoprazole Sodium 20 MG Tablet PO (09:22)
[2021-12-31] MEDS: hydroCHLOROthiazide 25 MG Tablet PO (09:22)
[2021-12-31] MEDS: guaiFENesin 1,200 MG Tablet 1200 MG PO ×2 (09:22→22:13)
[2021-12-31] MEDS: Carvedilol 6.25 MG Tablet PO ×2 (09:22→22:16)
[2021-12-31] MEDS: Clopidogrel Bisulfate 75 MG Tablet PO (09:22)
[2021-12-31] MEDS: Enoxaparin 40 MG/0.4 ML Syringe SC ×2 (09:23→22:17)
[2021-12-31] MEDS: 0.9% Saline Lock 10 ML Syringe IV ×2 (09:29→22:17)
[2021-12-31] MEDS: buPROPion (XL) 300 MG TABLET.XL PO (13:05)
[2021-12-31] MEDS: Sertraline 100 MG Tablet PO (13:05)
--- NOTE | 2021-12-31 15:23 | PCM.PN.HOSP ---
Subjective Subjective Follow-up for acute on chronic hypoxic respiratory failure. Patient shortness of breath is better than yesterday. She wore 4 to 5 hours of BiPAP yesterday. Currently on air Vo. Objective Data Objective Data Vital Signs: Vital Signs Temp Pulse Resp BP Pulse Ox O2 Del Method O2 Flow Rate 97.6 F L 91 18 150/79 H 98 Airvo 60 12/31/21 08:39 12/31/21 11:54 12/31/21 08:39 12/31/21 08:39 12/31/21 11:48 12/31/21 08:45 12/31/21 13:33 FiO2 60 12/31/21 07:28 Oxygen Flow Rate (L/min) 60 Oxygen Delivery Method Airvo Weight: 270 lb 4.587 oz Body Mass Index (BMI) 46.7 Intake & Output: Intake and Output for Last 24 Hours 12/29/21 12/30/21 12/31/21 23:59 23:59 23:59 Intake Total 1260 / 1560 1830 / 1930 700 / 700 Balance 1260 / 1560 1830 / 1930 700 / 700 Medical Nutrition Assessment Dietitian: Malnutrition Criteria Met Start: 12/26/21 16:39 Freq: Status: Active Protocol: Document 12/29/21 11:22 RMA (Rec: 12/29/21 11:22 RMA [id number]) Nutrition Malnutrition Evidence of Malnutrition Exists Yes Malnutrition (severe): Chronic Evidenced By Suboptimal Energy Intake ( Severe),Weight Loss (Severe) Clinical Problem Chronic Disease or Condition Related Malnutrition Etiology Protein-calorie malnutrition in the context of chronic malignant disease related to increased energy expenditure and inadequate oral intake Signs/Symptoms as evidenced by <50% PO intake of estimated energy needs for >1 month and 5.6% weight loss in 1 month. Status Active Problem Recommendation Dietitian Recommendations/Changes Continue Regular diet to optimize oral intakes. Lab / Micro Data Result Diagrams: 12/31/21 06:40 12/31/21 06:40 Labs: Laboratory Results - last 24 hr 12/31/21 06:40: WBC 9.1, RBC 6.47 H, Hgb 15.6 H, Hct 50.6 H, MCV 78.2 L, MCH 24.1 L, MCHC 30.8 L, RDW Std Deviation 48.7 H, RDW Coeff of Melina 18.3 H, Plt Count 189, MPV 10.3, Immature Gran % (Auto) 0.800, Neut % (Auto) 85.6 H, Lymph % (Auto) 8.3 L, [place] % (Auto) 5.2, Eos % (Auto) 0.0, Baso % (Auto) 0.1, Absolute Neuts (auto) 7.8 H, Absolute Lymphs (auto) 0.75 L, Nucleated RBC % 0 12/31/21 06:40: Sodium 137, Potassium 4.6, Chloride 98, Carbon Dioxide 34.0 H, Anion Gap 5, BUN 21 H, Creatinine 0.73, Estim Creat Clear Calc 45.78, Est GFR (MDRD) Af Amer 103, Est GFR (MDRD) Non-Af 85, BUN/Creatinine Ratio 28.9 H, Glucose 126 H, Calcium 10.2 H, Total Bilirubin 0.30, AST 16, ALT 20, Alkaline Phosphatase 91, Total Protein 6.5, Albumin 2.5 L, Globulin 4.0, Albumin/Globulin Ratio 0.6 L Micro: Microbiology 12/26/21 14:35 Interface Orders Legionella Antigen - Final 12/26/21 14:35 Interface Orders Streptococcus pneumoniae Antigen (M - Final 12/25/21 16:35 Mucosa - Nasopharyngeal Respiratory Panel (PCR) - Final Rhinovirus 12/25/21 16:35 Mucosa - Nasopharyngeal Influenza Types A,B Direct FA (ROSEANNA) - Final Physical Exam Narrative Physical exam General: Alert, Oriented x3, Cooperative, morbid obesity 48.0 kg/m? HEENT: Atraumatic, PERRLA, EOMI, Normocephalic Oral: On Airvo put on BiPAP. Neck: Supple, No JVD, Negative Carotid Bruits Lungs: Air entry severely diminished bilaterally. Fine rhonchi. No dyspnea at rest. Cardiovascular: Sinus rhythm, Normal S1, Normal S2, No murmurs Abdomen: Bowel Sounds Present, Soft, Non Tender, Non-Distended : No renal angle tenderness. No suprapubic tenderness. Extremities: Mild nonpitting edema, Capillary Refill Less than 3 Seconds Skin: No rashes, No breakdown Musculoskeletal: No Tenderness to Palpation of Joints or Extremities. ROM restricted at hip and knee joints Neurological: Cranial nerves II-XII grossly intact, DTR 2+/4, muscle strength 4/5 at major joints Psych/Mental Status: Flat affect Assessment & Plan Assessment/Plan (1) Acute and chronic respiratory failure with hypoxia: PLAN: Plan This is a 66-year-old female with history of small cell lung cancer of right lung on atezolizumab, chronic smoking hypertension was admitted with 1 week of progressive worsening of shortness of breath. She recently completed a high dose prednisone taper. #Acute hypoxic respiratory failure on chronic secondary to postobstructive pneumonia +/- pneumonitis in the setting of small cell lung carcinoma: Continue oxygen support, IV methyl prednisone, nebulization, incentive spirometry. CTA in ED was independently reviewed and showed no PE but did show progressive enlargement of right paratracheal and right hilar masses with postobstructive volume loss and pneumonitis in the right lower lobe 12/30: Patient very short of breath and acute on chronic hypoxic respiratory failure. BiPAP ordered. Pulmonary consult. Patient is positive for rhinovirus, consistent with viral with suspected superimposed bacterial pneumonia. Patient is on meropenem and vancomycin. 12/31: [employer] Fab[employer]ation Supervisor recommended vest therapy and mucolytic to expectorate secretions. Outpatient evaluation for possible endobronchial stent. Incentive spirometry. Continue NIPPV, BiPAP at night and Airvo during daytime #Small cell lung carcinoma: Discussed with oncologist. Consult note reviewed. Patient has extensive stage small cell lung cancer with malignant pleural effusion in February 2021. At that time she was admitted for respiratory failure. She was treated with induction systemic chemotherapy and immunotherapy; carboplatin etoposide and atezolizumab from February to June 2021. Then she had a good partial remission and was placed on atezolizumab maintenance. 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 Her colitis resolved On atezolizumab as an outpatient and was restarted on 12/19. As per oncologist her condition was worse in February when she was admitted and was close to intubation but did not require intubation. #Hypertension BP was borderline on lower side but subsequently did not improve 12/30 BP 147/85. On HCTZ and carvedilol #Tobacco use Advised cessation Does not want a nicotine patch #DVT ppx: Lovenox Charges/Coding Visit Charges Inpatient E&M: 94568 Subs Hosp L2
--- NOTE | 2021-12-31 18:57 | NURSING ---
Charting reviewed with Karthik Weiss RN
[2021-12-31] MEDS: BENZOCAINE/MENTHOL 1 LOZENGE MUCOUS MEM (22:15)
[2021-12-31] MEDS: LORazepam 0.5 MG Tablet 0.25 MG PO (22:15)
[2021-12-31] MEDS: Atorvastatin Calcium 10 MG Tablet PO (22:16)
[2022-01-01] VITALS (16 sets, daily range): BP systolic 126–153; BP diastolic 69–83; PULSE 79–93; RESP 10–45; TEMP 36.4–36.7; O2SAT 94–97
[2022-01-01] MEDS: Ipratropium/Albuterol Sulfate 3 ML AMPUL.NEB INHALATION ×6 (03:55→23:27)
[2022-01-01 05:30] LABS: Absolute Lymphocyte Count 0.82 X10^3/uL (0.83-4.51); Absolute Neutrophil Count 9.5 X10^3/uL (2.0-7.7); Basophil# 0.02 X10^3/uL; Basophil% 0.2 % (0-1); Eosinophil# 0.01 X10^3/uL; Eosinophils% 0.1 % (0-5); Hematocrit 51.1 % (37-47); Hemoglobin 15.5 g/dL (12.0-15.0); Lymphocyte # 0.82 X10^3/ul (0.83-4.51); Lymphocyte % 7.5 % (19-41); Mean Corp Hgb Conc 30.3 g/dL (32-36); Mean Corpuscular Hgb 23.7 pg (27.0-32.0); Mean Corpuscular Volume 78.1 fL (81-99); Mean Platelet Vol. 10.7 fl (6.2-12.0); Monocyte# 0.44 X10^3/uL; NRBC Flagged by Analyzer 0 % (0-5); Neutrophil % 87.3 % (47-70); Platelet Count 248 K/mm3 (150-450); RBC Distribution Width CV 18.3 % (11.6-14.6); RBC Distribution Width SD 47.8 fl (35.1-43.9); Red Blood Count 6.54 M/mm3 (4.2-5.4); White Blood Count 10.9 K/mm3 (4.4-11.0)
[2022-01-01 05:52] LABS: ALB/GLOB Ratio 0.6 RATIO (0.9-2.4); AST(SGOT) 21 U/L (15-37); Alanine Aminotransfer ALT/SGPT 24 U/L (13-56); Albumin, Serum 2.6 g/dL (3.2-5.0); Alkaline Phosphatase 92 U/L (45-117); Anion Gap 3 (5-15); BUN 23 mg/dL (7-18); BUN/Creat Ratio 31.6 RATIO (10-20); Calcium,Total 10.2 mg/dL (8.5-10.1); Chloride 94 mmol/L (98-107); Creatinine, Serum 0.73 mg/dL (0.55-1.02); EST Glomerular Filtration Rate 85 mL/min (>60); Est Glom Filt Rate - Afr Amer 103 mL/min (>60); Estimated Creatinine Clearance 45.78 ml/min; Glucose 146 mg/dL (74-106); Potassium 4.3 mmol/L (3.5-5.1); Protein, Total 6.6 g/dL (6.4-8.2); Sodium Level 133 mmol/L (136-145)
[2022-01-01] MEDS: guaiFENesin 1,200 MG Tablet 1200 MG PO ×2 (09:07→21:33)
[2022-01-01] MEDS: Clopidogrel Bisulfate 75 MG Tablet PO (09:07)
[2022-01-01] MEDS: Sertraline 100 MG Tablet PO (09:07)
[2022-01-01] MEDS: buPROPion (XL) 300 MG TABLET.XL PO (09:07)
[2022-01-01] MEDS: Carvedilol 6.25 MG Tablet PO ×2 (09:07→21:32)
[2022-01-01] MEDS: Pantoprazole Sodium 20 MG Tablet PO (09:07)
[2022-01-01] MEDS: hydroCHLOROthiazide 25 MG Tablet PO (09:08)
[2022-01-01] MEDS: Enoxaparin 40 MG/0.4 ML Syringe SC ×2 (09:08→21:30)
[2022-01-01] MEDS: 0.9% Saline Lock 10 ML Syringe IV ×2 (09:08→21:36)
--- NOTE | 2022-01-01 15:23 | PN.CC_ITS ---
Assessment & Plan Assessment/Plan (1) Acute and chronic respiratory failure with hypoxia: (2) Small cell lung cancer, overlapping sites of right lung: PLAN: Plan RECOMMENDATIONS: 1. Wean oxygen as tolerated to maintain oxygen saturation greater than 90%. 2. Continue vest therapy and mucolytic to help mobilize secretions. 3. May need outpatient evaluation for possible endobronchial stent evaluation 4. Encourage incentive spirometer to increase recruitment. 5. Will need ambulatory pulse ox prior to discharge. IMPRESSIONS: 1. Acute and chronic respiratory failure with hypoxia secondary to rhinovirus with underlying lung disease Patient continues to require high level of oxygen using Airvo. Patient was able to tolerate BiPAP for a few hours overnight. Secretions much better t olerated on the current regimen. Continue vest therapy to help mobilize secretions in the event there is a mucous plug component to the right lower lobe collapse. Patient appears to responding well to current therapy. Unfortunately, rhinovirus will have to run its course. May have protracted hos pitalization. Continue scheduled bronchodilators and steroid therapy. Oncology has also been consulted for input. Patient may need an evaluation by interventional pulmonary as an outpatient for an endobronchial stent. Patient may need supplemental oxygen on discharge. Patient may benefit from BiPAP with sleep. Patient very clear that she would not want to be intubated if necessary. Patient progressing as expected. 2. History of COPD, small cell lung cancer, pleural effusion, tobacco abuse, morbid obesity, DM 2, hypertension. Complicates care, management, recovery and prognosis. Okay to continue home medications as indicated. Continue with bronchodilators Subjective Subjective Patient feels subjectively improved compared to yesterday. Patient does report pulmonary toileting techniques are helpful. Patient with less anxiety. Patient still having a productive cough, but feels that it is lightening up. Objective Data Objective Data Vital Signs: Vital Signs Temp Pulse Resp BP Pulse Ox O2 Del Method O2 Flow Rate 36.6 C 85 20 H 153/83 H 94 Airvo 60 01/01/22 09:00 01/01/22 10:24 01/01/22 10:24 01/01/22 09:00 01/01/22 09:00 01/01/22 10:41 01/01/22 10:41 FiO2 53 01/01/22 10:41 Oxygen Flow Rate (L/min) 60 Oxygen Delivery Method Airvo Weight: 123.8 kg Body Mass Index (BMI) 46.7 Intake & Output: Intake and Output for Last 24 Hours 12/30/21 12/31/21 01/01/22 23:59 23:59 23:59 Intake Total 1829 820 / 820 760 / 760 Balance 1829 820 / 820 760 / 760 Medical Nutrition Assessment Dietitian: Malnutrition Criteria Met Start: 12/26/21 16:39 Freq: Status: Active Protocol: Document 12/29/21 11:22 RMA (Rec: 12/29/21 11:22 RMA [id number]) Nutrition Malnutrition Evidence of Malnutrition Exists Yes Malnutrition (severe): Chronic Evidenced By Suboptimal Energy Intake ( Severe),Weight Loss (Severe) Clinical Problem Chronic Disease or Condition Related Malnutrition Etiology Protein-calorie malnutrition in the context of chronic malignant disease related to increased energy expenditure and inadequate oral intake Signs/Symptoms as evidenced by <50% PO intake of estimated energy needs for >1 month and 5.6% weight loss in 1 month. Status Active Problem Recommendation Dietitian Recommendations/Changes Continue Regular diet to optimize oral intakes. Lab / Micro Data Result Diagrams: 01/01/22 05:25 01/01/22 05:25 Labs: Laboratory Results - last 24 hr 01/01/22 05:25: WBC 10.9, RBC 6.54 H, Hgb 15.5 H, Hct 51.1 H, MCV 78.1 L, MCH 23.7 L, MCHC 30.3 L, RDW Std Deviation 47.8 H, RDW Coeff of Melina 18.3 H, Plt Count 248, MPV 10.7, Immature Gran % (Auto) 0.900, Neut % (Auto) 87.3 H, Lymph % (Auto) 7.5 L, [place] % (Auto) 4.0, Eos % (Auto) 0.1, Baso % (Auto) 0.2, Absolute Neuts (auto) 9.5 H, Absolute Lymphs (auto) 0.82 L, Nucleated RBC % 0 01/01/22 05:25: Sodium 133 L, Potassium 4.3, Chloride 94 L, Carbon Dioxide 36.0 H, Anion Gap 3 L, BUN 23 H, Creatinine 0.73, Estim Creat Clear Calc 45.78, Est GFR (MDRD) Af Amer 103, Est GFR (MDRD) Non-Af 85, BUN/Creatinine Ratio 31.6 H, Glucose 146 H, Calcium 10.2 H, Total Bilirubin 0.30, AST 21, ALT 24, Alkaline Phosphatase 92, Total Protein 6.6, Albumin 2.6 L, Globulin 4.0, Albumin/Globulin Ratio 0.6 L Micro: Microbiology 12/26/21 14:35 Interface Orders Legionella Antigen - Final 12/26/21 14:35 Interface Orders Streptococcus pneumoniae Antigen (M - Final 12/25/21 16:35 Mucosa - Nasopharyngeal Respiratory Panel (PCR) - Final Rhinovirus 12/25/21 16:35 Mucosa - Nasopharyngeal Influenza Types A,B Direct FA (ROSEANNA) - Final Physical Exam Const alert and oriented x3 Constitutional Narrative: Obese white female sitting in chair with Airvo in place. Appears older than stated age. Mild conversational dyspnea General Appearance: cooperative HEENT normocephalic, head/scalp atraumatic and moist oral mucous membranes Eyes PERRL, EOMs intact bilaterally and conjunctivae normal Neck no lymphadenopathy General: trachea midline Chest inspection of chest normal Chest Narrative: Mediport right chest. Resp normal respiratory effort Effort and Inspection: tachypneic; Negative for actively coughing Auscultation: wheezes expiratory wheezes, inspiratory wheezes, left lower, left upper and right upper and diminished lung sounds right; Negative for rales or rhonchi Cardio regular rhythm, S1 normal heart sound, S2 normal heart sound, no murmurs, no rub and no gallops Rate: tachycardic GI normal to inspection, nondistended, normoactive bowel sounds GI Narrative: Obese abdomen Extremity Extremity Narrative: Vascular insufficiency of bilateral lower extremities General Extremity: edema bilateral lower extremity (3+ pitting) Skin Skin Narrative: Lichenification of bilateral lower extremity General Skin Exam: lichenification Neuro oriented x3, CN's II-XII intact bilaterally, moves all extremities and no focal motor deficits Speech: speech normal Psych cooperative and affect normal Charges/Coding Visit Charges Inpatient E&M: 29754 Subs Hosp L2
--- NOTE | 2022-01-01 15:41 | PN.HOSP_ITS ---
Subjective Subjective Follow-up for acute on chronic Hypoxic respiratory failure. Patient remains on BiPAP at night and Airvo during daytime.. Objective Data Objective Data Vital Signs: Vital Signs Temp Pulse Resp BP Pulse Ox O2 Del Method O2 Flow Rate 97.9 F 85 20 H 153/83 H 94 Airvo 60 01/01/22 09:00 01/01/22 10:24 01/01/22 10:24 01/01/22 09:00 01/01/22 09:00 01/01/22 10:41 01/01/22 10:41 FiO2 53 01/01/22 10:41 Oxygen Flow Rate (L/min) 60 Oxygen Delivery Method Airvo Weight: 272 lb 14.916 oz Body Mass Index (BMI) 46.7 Intake & Output: Intake and Output for Last 24 Hours 12/30/21 12/31/21 01/01/22 23:59 23:59 23:59 Intake Total 1830 / 1930 820 / 820 760 / 760 Balance 1830 / 1930 820 / 820 760 / 760 Medical Nutrition Assessment Dietitian: Malnutrition Criteria Met Start: 12/26/21 16:39 Freq: Status: Active Protocol: Document 12/29/21 11:22 RMA (Rec: 12/29/21 11:22 RMA [id number]) Nutrition Malnutrition Evidence of Malnutrition Exists Yes Malnutrition (severe): Chronic Evidenced By Suboptimal Energy Intake ( Severe),Weight Loss (Severe) Clinical Problem Chronic Disease or Condition Related Malnutrition Etiology Protein-calorie malnutrition in the context of chronic malignant disease related to increased energy expenditure and inadequate oral intake Signs/Symptoms as evidenced by <50% PO intake of estimated energy needs for >1 month and 5.6% weight loss in 1 month. Status Active Problem Recommendation Dietitian Recommendations/Changes Continue Regular diet to optimize oral intakes. Lab / Micro Data Result Diagrams: 01/01/22 05:25 01/01/22 05:25 Labs: Laboratory Results - last 24 hr 01/01/22 05:25: WBC 10.9, RBC 6.54 H, Hgb 15.5 H, Hct 51.1 H, MCV 78.1 L, MCH 23.7 L, MCHC 30.3 L, RDW Std Deviation 47.8 H, RDW Coeff of Melina 18.3 H, Plt Count 248, MPV 10.7, Immature Gran % (Auto) 0.900, Neut % (Auto) 87.3 H, Lymph % (Auto) 7.5 L, [place] % (Auto) 4.0, Eos % (Auto) 0.1, Baso % (Auto) 0.2, Absolute Neuts (auto) 9.5 H, Absolute Lymphs (auto) 0.82 L, Nucleated RBC % 0 01/01/22 05:25: Sodium 133 L, Potassium 4.3, Chloride 94 L, Carbon Dioxide 36.0 H, Anion Gap 3 L, BUN 23 H, Creatinine 0.73, Estim Creat Clear Calc 45.78, Est GFR (MDRD) Af Amer 103, Est GFR (MDRD) Non-Af 85, BUN/Creatinine Ratio 31.6 H, Glucose 146 H, Calcium 10.2 H, Total Bilirubin 0.30, AST 21, ALT 24, Alkaline Phosphatase 92, Total Protein 6.6, Albumin 2.6 L, Globulin 4.0, Albumin/Globulin Ratio 0.6 L Micro: Microbiology 12/26/21 14:35 Interface Orders Legionella Antigen - Final 12/26/21 14:35 Interface Orders Streptococcus pneumoniae Antigen (M - Final 12/25/21 16:35 Mucosa - Nasopharyngeal Respiratory Panel (PCR) - Final Rhinovirus 12/25/21 16:35 Mucosa - Nasopharyngeal Influenza Types A,B Direct FA (ROSEANNA) - Final Physical Exam Narrative Physical exam General: Alert, Oriented x3, Cooperative, morbid obesity 48.0 kg/m? HEENT: Atraumatic, PERRLA, EOMI, Normocephalic Oral: On Airvo put on BiPAP. Neck: Supple, No JVD, Negative Carotid Bruits Lungs: Air entry severely diminished bilaterally. Fine rhonchi. No dyspnea at rest. Dyspnea on exertion. Cardiovascular: Sinus rhythm, Normal S1, Normal S2, No murmurs Abdomen: Bowel Sounds Present, Soft, Non Tender, Non-Distended : No renal angle tenderness. No suprapubic tenderness. Extremities: Mild nonpitting edema, Capillary Refill Less than 3 Seconds Skin: No rash. Musculoskeletal: No Tenderness to Palpation of Joints or Extremities. ROM restricted at hip and knee joints Neurological: Cranial nerves II-XII grossly intact, DTR 2+/4, muscle strength 4/5 at major joints Psych/Mental Status: Flat affect Assessment & Plan Assessment/Plan (1) Acute and chronic respiratory failure with hypoxia: PLAN: Plan This is a 66-year-old female with history of small cell lung cancer of right lung on atezolizumab, chronic smoking hypertension was admitted with 1 week of progressive worsening of shortness of breath. She recently completed a high dose prednisone taper. #Acute hypoxic respiratory failure on chronic secondary to postobstructive pneumonia +/- pneumonitis in the setting of small cell lung carcinoma: Continue oxygen support, IV methyl prednisone, nebulization, incentive spirometry. CTA in ED was independently reviewed and showed no PE but did show progressive enlargement of right paratracheal and right hilar masses with postobstructive volume loss and pneumonitis in the right lower lobe 12/30: Patient very short of breath and acute on chronic hypoxic respiratory failure. BiPAP ordered. Pulmonary consult. Patient is positive for rhinovirus, consistent with viral with suspected superimposed bacterial pneumonia. Patient is on meropenem and vancomycin. 12/31: Access Lead recommended vest therapy and mucolytic to expectorate secretions. Outpatient evaluation for possible endobronchial stent. Incentive spirometry. Continue NIPPV, BiPAP at night and Airvo during daytime 01/01: Continue treatment. Probably will need prolonged NIPPV and SNF as I do not see transition to nasal cannula in the near future. No fever. Patient on seventh day of meropenem today. Last dose tonight. #Small cell lung carcinoma: Discussed with oncologist. Consult note reviewed. Patient has extensive stage small cell lung cancer with malignant pleural effusion in February 2021. At that time she was admitted for respiratory failure. She was treated with induction systemic chemotherapy and immunotherapy; carboplatin etoposide and atezolizumab from February to June 2021. Then she had a good partial remission and was placed on atezolizumab [facility]. 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 Her colitis resolved On atezolizumab as an outpatient and was restarted on 12/19. As per oncologist her condition was worse in February when she was admitted and was close to intubation but did not require intubation. #Hypertension BP was borderline on lower side but subsequently did not improve 12/30 BP 147/85. On HCTZ and carvedilol 12/31: BP on acceptable limit. #Tobacco use Advised cessation Does not want a nicotine patch #DVT ppx: Lovenox Charges/Coding Visit Charges Inpatient E&M: 51876 Subs Hosp L2
[2022-01-01] MEDS: LORazepam 0.5 MG Tablet 0.25 MG PO (21:31)
[2022-01-01] MEDS: Atorvastatin Calcium 10 MG Tablet PO (21:33)
[2022-01-01] MEDS: Acetaminophen 325 MG Tablet 650 MG PO (21:33)
[2022-01-01] MEDS: BENZOCAINE/MENTHOL 1 LOZENGE MUCOUS MEM (21:35)
[2022-01-02] VITALS (18 sets, daily range): BP systolic 97–176; BP diastolic 54–100; PULSE 78–119; RESP 12–25; TEMP 35.8–36.4; O2SAT 94–100
[2022-01-02] MEDS: Ipratropium/Albuterol Sulfate 3 ML AMPUL.NEB INHALATION ×4 (03:27→15:18)
[2022-01-02 06:28] LABS: ALB/GLOB Ratio 0.7 RATIO (0.9-2.4); AST(SGOT) 15 U/L (15-37); Alanine Aminotransfer ALT/SGPT 24 U/L (13-56); Albumin, Serum 2.8 g/dL (3.2-5.0); Alkaline Phosphatase 92 U/L (45-117); Anion Gap 3 (5-15); BUN 23 mg/dL (7-18); BUN/Creat Ratio 30.5 RATIO (10-20); Calcium,Total 10.4 mg/dL (8.5-10.1); Chloride 92 mmol/L (98-107); Creatinine, Serum 0.75 mg/dL (0.55-1.02); EST Glomerular Filtration Rate 82 mL/min (>60); Est Glom Filt Rate - Afr Amer 99 mL/min (>60); Estimated Creatinine Clearance 45.78 ml/min; Globulin 3.9 g/dL (2.2-4.2); Glucose 143 mg/dL (74-106); Potassium 4.5 mmol/L (3.5-5.1); Protein, Total 6.7 g/dL (6.4-8.2); Sodium Level 132 mmol/L (136-145)
[2022-01-02] MEDS: Acetaminophen 325 MG Tablet 650 MG PO (07:43)
--- NOTE | 2022-01-02 09:51 | PCM.PN.INT ---
Assessment & Plan Assessment/Plan (1) Acute and chronic respiratory failure with hypoxia: (2) Small cell lung cancer, overlapping sites of right lung: PLAN: Plan RECOMMENDATIONS: 1. Wean oxygen as tolerated to maintain oxygen saturation greater than 90%. Attempt transition to nasal cannula 2. Continue vest therapy and mucolytic to help mobilize secretions. 3. May need outpatient evaluation for possible endobronchial stent evaluation 4. Encourage incentive spirometer to increase recruitment. 5. Will need ambulatory pulse ox prior to discharge. IMPRESSIONS: 1. Acute and chronic respiratory failure with hypoxia secondary to rhinovirus with underlying lung disease Slowly improving. Patient continues to require high level of oxygen using Airvo. Patient was able to tolerate BiPAP for a few hours overnight. Secretions much better tolerated on the current regimen. Continue vest therapy to help mobilize secretions in the event there is a mucous plug component to the right lower lobe collapse. Patient appears to responding well to current therapy. Unfortunately, rhinovirus will have to run its course. May have protracted hospitalization. Continue scheduled bronchodilators and steroid therapy. Oncology has also been consulted for input. Patient may need an evaluation by interventional pulmonary as an outpatient for an endobronchial stent. Patient may need supplemental oxygen on discharge. Patient may benefit from BiPAP with sleep. Patient very clear that she would not want to be intubated if necessary. Patient progressing as expected. We will attempt to transition patient to nasal cannula and wean as tolerated 2. History of COPD, small cell lung cancer, pleural effusion, tobacco abuse, morbid obesity, DM 2, hypertension. Complicates care, management, recovery and prognosis. Okay to continue home medications as indicated. Continue with bronchodilators Subjective Subjective Patient did okay overnight from a hemodynamic standpoint. Patient did develop a cramp in her left flank this morning making it uncomfortable to move. Patient states her secretions are clear at this point. Patient was not attempted on nasal cannula yesterday per her report. Objective Data Objective Data Vital Signs: Vital Signs Temp Pulse Resp BP Pulse Ox O2 Del Method O2 Flow Rate 35.8 C L 104 H 18 176/100 H 95 High Flow 8 01/02/22 08:45 01/02/22 08:45 01/02/22 08:45 01/02/22 08:45 01/02/22 09:44 01/02/22 09:44 01/02/22 09:44 FiO2 53 01/02/22 08:45 Oxygen Flow Rate (L/min) 8 Oxygen Delivery Method High Flow Weight: 123.8 kg Body Mass Index (BMI) 46.7 Intake & Output: Intake and Output for Last 24 Hours 12/31/21 01/01/22 01/02/22 23:59 23:59 23:59 Intake Total 820 / 820 1180 / 1180 240 / 240 Balance 820 / 820 1180 / 1180 240 / 240 Medical Nutrition Assessment Dietitian: Malnutrition Criteria Met Start: 12/26/21 16:39 Freq: Status: Active Protocol: Document 12/29/21 11:22 RMA (Rec: 12/29/21 11:22 RMA [id number]) Nutrition Malnutrition Evidence of Malnutrition Exists Yes Malnutrition (severe): Chronic Evidenced By Suboptimal Energy Intake ( Severe),Weight Loss (Severe) Clinical Problem Chronic Disease or Condition Related Malnutrition Etiology Protein-calorie malnutrition in the context of chronic malignant disease related to increased energy expenditure and inadequate oral intake Signs/Symptoms as evidenced by <50% PO intake of estimated energy needs for >1 month and 5.6% weight loss in 1 month. Status Active Problem Recommendation Dietitian Recommendations/Changes Continue Regular diet to optimize oral intakes. Lab / Micro Data Attestation: I reviewed the patient's lab results. Result Diagrams: 01/01/22 05:25 01/02/22 05:20 Labs: Laboratory Results - last 24 hr 01/02/22 05:20: Sodium 132 L, Potassium 4.5, Chloride 92 L, Carbon Dioxide 37.0 H, Anion Gap 3 L, BUN 23 H, Creatinine 0.75, Estim Creat Clear Calc 45.78, Est GFR (MDRD) Af Amer 99, Est GFR (MDRD) Non-Af 82, BUN/Creatinine Ratio 30.5 H, Glucose 143 H, Calcium 10.4 H, Total Bilirubin 0.30, AST 15, ALT 24, Alkaline Phosphatase 92, Total Protein 6.7, Albumin 2.8 L, Globulin 3.9, Albumin/Globulin Ratio 0.7 L Micro: Microbiology 12/26/21 14:35 Interface Orders Legionella Antigen - Final 12/26/21 14:35 Interface Orders Streptococcus pneumoniae Antigen (M - Final 12/25/21 16:35 Mucosa - Nasopharyngeal Respiratory Panel (PCR) - Final Rhinovirus 12/25/21 16:35 Mucosa - Nasopharyngeal Influenza Types A,B Direct FA ([facility]) - Final Physical Exam Const alert and oriented x3 Constitutional Narrative: Obese white female sitting in chair with Airvo in place. Appears older than stated age. No conversational dyspnea. Slight discomfort from muscle cramps General Appearance: cooperative and in distress Positive for mild (Related the back/flank pain) HEENT normocephalic, head/scalp atraumatic and moist oral mucous membranes Eyes PERRL, EOMs intact bilaterally and conjunctivae normal Neck no lymphadenopathy General: trachea midline Chest inspection of chest normal Chest Narrative: Mediport right chest. Resp normal respiratory effort Effort and Inspection: tachypneic; Negative for actively coughing Auscultation: diminished lung sounds right; Negative for rales, rhonchi or wheezes Cardio regular rate, regular rhythm, S1 normal heart sound, S2 normal heart sound, no murmurs, no rub and no gallops GI normal to inspection, nondistended, normoactive bowel sounds GI Narrative: Obese abdomen Extremity Extremity Narrative: Vascular insufficiency of bilateral lower extremities General Extremity: edema bilateral lower extremity (3+ pitting) Skin Skin Narrative: Lichenification of bilateral lower extremity General Skin Exam: lichenification Neuro oriented x3, CN's II-XII intact bilaterally, moves all extremities and no focal motor deficits Speech: speech normal Psych cooperative and affect normal Charges/Coding Visit Charges Inpatient E&M: 47429 Subs Hosp L2
--- NOTE | 2022-01-02 10:29 | PN.HOSP_ITS ---
Subjective Subjective Patient seen and examined. She was complaining of abdominal pain, and says she feels like something had torn open in her belly. She denied any nausea, vomiting, fever, chills, or any other symptoms. She denies any abdominal trauma. Review of systems was otherwise negative. Objective Data Objective Data Vital Signs: Vital Signs Temp Pulse Resp BP Pulse Ox O2 Del Method O2 Flow Rate 96.5 F L 104 H 18 176/100 H 95 High Flow 8 01/02/22 08:45 01/02/22 08:45 01/02/22 08:45 01/02/22 08:45 01/02/22 09:44 01/02/22 09:44 01/02/22 09:44 FiO2 53 01/02/22 08:45 Oxygen Flow Rate (L/min) 8 Oxygen Delivery Method High Flow Weight: 272 lb 14.916 oz Body Mass Index (BMI) 46.7 Intake & Output: Intake and Output for Last 24 Hours 12/31/21 01/01/22 01/02/22 23:59 23:59 23:59 Intake Total 820 / 820 1180 / 1180 240 / 240 Balance 820 / 820 1180 / 1180 240 / 240 Medical Nutrition Assessment Dietitian: Malnutrition Criteria Met Start: 12/26/21 16:39 Freq: Status: Active Protocol: Document 12/29/21 11:22 RMA (Rec: 12/29/21 11:22 RMA [id number]) Nutrition Malnutrition Evidence of Malnutrition Exists Yes Malnutrition (severe): Chronic Evidenced By Suboptimal Energy Intake ( Severe),Weight Loss (Severe) Clinical Problem Chronic Disease or Condition Related Malnutrition Etiology Protein-calorie malnutrition in the context of chronic malignant disease related to increased energy expenditure and inadequate oral intake Signs/Symptoms as evidenced by <50% PO intake of estimated energy needs for >1 month and 5.6% weight loss in 1 month. Status Active Problem Recommendation Dietitian Recommendations/Changes Continue Regular diet to optimize oral intakes. Lab / Micro Data Result Diagrams: 01/02/22 14:40 01/02/22 05:20 Labs: Laboratory Results - last 24 hr 01/02/22 05:20: Sodium 132 L, Potassium 4.5, Chloride 92 L, Carbon Dioxide 37.0 H, Anion Gap 3 L, BUN 23 H, Creatinine 0.75, Estim Creat Clear Calc 45.78, Est GFR (MDRD) Af Amer 99, Est GFR (MDRD) Non-Af 82, BUN/Creatinine Ratio 30.5 H, Glucose 143 H, Calcium 10.4 H, Total Bilirubin 0.30, AST 15, ALT 24, Alkaline Phosphatase 92, Total Protein 6.7, Albumin 2.8 L, Globulin 3.9, Albumin/Globulin Ratio 0.7 L Micro: Microbiology 12/26/21 14:35 Interface Orders Legionella Antigen - Final 12/26/21 14:35 Interface Orders Streptococcus pneumoniae Antigen (M - Final 12/25/21 16:35 Mucosa - Nasopharyngeal Respiratory Panel (PCR) - Final Rhinovirus 12/25/21 16:35 Mucosa - Nasopharyngeal Influenza Types A,B Direct FA ([facility]) - Final Physical Exam Const alert and oriented x3 Constitutional Narrative: in moderate distress due to pain; morbidly obese HEENT head/scalp atraumatic and moist oral mucous membranes Head and Scalp: normocephalic Mouth: oral and palatal mucosa normal Eyes PERRL, EOMs intact bilaterally and conjunctivae normal Neck no lymphadenopathy and supple Resp Resp Narrative: mildly diminished breath sounds bibasally, no wheezes or crackles. On 8L of oxygen by nasal canula Cardio regular rate, regular rhythm, S1 normal heart sound, S2 normal heart sound and no murmurs GI normal to inspection, nondistended, normoactive bowel sounds and soft to palpation GI Narrative: morbidly obese abdomen. Minimal tenderness on palpation, no guarding or rebound tenderness. Extremity normal to inspection, full ROM and no clubbing, cyanosis or edema Neuro oriented x3, CN's II-XII intact bilaterally, moves all extremities and no focal motor deficits Sensorium / Orientation: awake and alert Motor Exam: strength 5/5 throughout Psych affect normal Assessment & Plan Assessment/Plan (1) Acute and chronic respiratory failure with hypoxia: (2) Wheezing: (3) Cough: PLAN: Plan # Acute hypoxic respiratory failure due to post obstructive pneumonia from small cell lung cancer * on 8L of oxygen this morning. wears BIPAP during the night * on IV solumedrol; vancomycin and meropenem * also has positive Rhinovirus screen * breathing treatment with bronchodilators. * titrate oxyten to maintain sats >90% * vest therapy and mucolytics to help with braething * #Small cell lung cancer * oncology on board * diagnosied with extensive small cell lung cancer with malignant pleural effusion in February 2021 * treated ith chemotherapy and immunotherapy and subseqeuently placed on atelolizumab fo rmaintanenace treatment. 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 C Olitis resolved and atelolizumab was resumed on 12/19/ * #Abdominal pain * complaining of lower abdominal pain. * is passing gas, and denies any nausea or vomiting. Abdomen is soft to palpation * will give IV morphine prn for now. If pain persists, will get abdominal imaging in light of her history of immune mediated colitis to see if there is a recurrenceof this * #Hypertension: on HCTZ and carvedilol #Mild hyponatremia: sodium is 132. Likely due to decreased intake and diuretic usage. Na is 132 today. WIll monitor for now #Nicotine dependence: counseled to quit. Declined nicotine patch DVT prophylaxis: Lovenox 3:32pm CT of the abdomen/pelvis with IV/oral contrast done due to persistent abdominal pain showed a large acute left rectus sheath hematoma with active contrast extravasation and acute hemorrhage extends into the overlying subcutaneous soft tissues and into the lower abdomen and pelvis, obscuring the pelvic organs. Stat CBC showed Hb of 12.6, down from ~ 15 yesterday. Patient's BP had also dropped down to the 90s systolic transiently, and was 112/93 at time of review. Lovenox discontinued and stat type and cross ordered. I discussed this emergently with the surgeon on-call Dr. Mcmahan who recommended that patient be emergently transferred for interventional radiology evaluation due to active bleeding. Patient given a bolus of IV fluids normal saline 1 L. We will hold blood pressure medications. PT/INR ordered. [facility] called to initiate transfer. Patient accepted by Dr Srinivasa Lora- [facility] ICU director software development. Charges/Coding Visit Charges Inpatient E&M: 05189 Subs Hosp L3
[2022-01-02] MEDS: Morphine 2 MG/ML Syringe IV (10:36)
[2022-01-02] MEDS: 0.9% Saline Lock 10 ML Syringe IV ×2 (10:36→10:49)
[2022-01-02] MEDS: Pantoprazole Sodium 20 MG Tablet PO (10:50)
[2022-01-02] MEDS: Carvedilol 6.25 MG Tablet PO (10:50)
[2022-01-02] MEDS: Clopidogrel Bisulfate 75 MG Tablet PO (10:50)
[2022-01-02] MEDS: Enoxaparin 40 MG/0.4 ML Syringe SC (10:50)
[2022-01-02] MEDS: hydroCHLOROthiazide 25 MG Tablet PO (10:50)
--- NOTE | 2022-01-02 11:20 | CPS ---
patient does not want to do the vest right now. she states she pulled a muscle in her lower abdomen trying to move the chair
--- NOTE | 2022-01-02 12:05 | CT_ITS ---
We are attempting to reach an attending provider to discuss findings. An addendum with communication details will be sent when the communication is complete. HISTORY: abdominal pain, suspect colitis -- hx of colitis due to atelolizumab. PATIENT HAS LUNG CANCER. PRIOR HYSTERECTOMY. TECHNIQUE: Helically acquired images were obtained of the abdomen and pelvis after the intravenous administration of 75 mL Isovue 370 and oral Gastrografin. A radiation dose optimization technique was used for this scan. 503 images. COMPARISON: 12/04/2021. FINDINGS: LOWER CHEST: Confluent right hilar and subcarinal mass with increased consolidation in the right lung base and loculated right pleural effusion. Narrowing of the right lower lobe airway. Midline sternotomy. BOWEL: Bowel nondilated. No periappendiceal or focal pericolonic inflammatory change observed. PERITONEUM: No significant ascites. LIVER: Stable low-density lesions in the liver. GALLBLADDER/BILIARY TREE: Gallbladder present. SPLEEN: Homogeneous and nonenlarged. PANCREAS: Atrophic. KIDNEYS: Mild atrophy with small cysts. No hydronephrosis. ADRENAL GLANDS: Mild bilateral thickening. VESSELS: No abdominal aortic aneurysm. Atherosclerosis of the abdominal aorta and its major branches. PELVIC ORGANS: Obscured by hemorrhage in the left and right pelvis. ABDOMINAL WALL: 8.6 x 9.8 x 16 cm acute left rectus sheath hematoma with puddling of contrast within the hematoma and protrusion into the lower abdomen and pelvis. Overlying 4.8 x 9.3 cm subcutaneous hematoma over the left pelvis. BONES: Mild degenerative change. CT/Abdomen/Pelvis WITH Contrast IMPRESSION: Large acute left rectus sheath hematoma with active contrast extravasation. Acute hemorrhage extends into the overlying subcutaneous soft tissues and into the lower abdomen and pelvis, obscuring the pelvic organs. Confluent right hilar and subcarinal mass, compatible with the history of lung cancer. Increased post obstructive pneumonia or pneumonitis in the right lung base with loculated pleural effusion. Indeterminate liver lesions again seen, possible metastases. Electronically Signed: Christin Simpson MD at 14:41 EST ,
[2022-01-02] MEDS: guaiFENesin 1,200 MG Tablet 1200 MG PO (13:07)
[2022-01-02] MEDS: buPROPion (XL) 300 MG TABLET.XL PO (13:07)
[2022-01-02] MEDS: Sertraline 100 MG Tablet PO (13:08)
[2022-01-02 14:47] LABS: Absolute Lymphocyte Count 1.37 X10^3/uL (0.83-4.51); Absolute Neutrophil Count 24.1 X10^3/uL (2.0-7.7); Basophil# 0.06 X10^3/uL; Basophil% 0.2 % (0-1); Eosinophil# 0.02 X10^3/uL; Eosinophils% 0.1 % (0-5); Hematocrit 41.1 % (37-47); Hemoglobin 12.5 g/dL (12.0-15.0); Lymphocyte # 1.37 X10^3/ul (0.83-4.51); Mean Corp Hgb Conc 30.4 g/dL (32-36); Mean Corpuscular Volume 78.9 fL (81-99); Mean Platelet Vol. 10.5 fl (6.2-12.0); Monocyte# 1.08 X10^3/uL; Monocyte% 3.9 % (0-10); NRBC Flagged by Analyzer 0 % (0-5); Neutrophil # 24.13 X10^3/uL (2.7-7.7); POSITIVE DIFFERENTIAL YES; Platelet Count 420 K/mm3 (150-450); RBC Distribution Width CV 16.7 % (11.6-14.6); RBC Distribution Width SD 47.8 fl (35.1-43.9); Red Blood Count 5.21 M/mm3 (4.2-5.4); White Blood Count 27.4 K/mm3 (4.4-11.0)
[2022-01-02 14:49] LABS: Differential Indicated SCAN CRITERIA MET
[2022-01-02] MEDS: 0.9% Normal Saline 1,000 ML 999 ML IV (15:01)
[2022-01-02 15:15] LABS: Differential Comment SCANNED
[2022-01-02 15:47] LABS: International Normalized Ratio 1.2; Prothrombin Time (Protime)PT. 14.6 SECONDS (11.7-14.9)
--- NOTE | 2022-01-02 16:18 | DS.PCM_ITS ---
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 Routine Consulting Provider: [facility] Reason for Consult: Acute on chr resp failure, Bipap, SCC, COPD EMERGENT Consult: No Notified: Yes Date Notified: 12/30/21 Time Notified: 10:56 Method of Notification: Text Reason For Visit: ACUTE HYPOXIC RESPIRATORY FAILURE 2/2 PNEUMONIA Diagnosis Discharge Diagnosis (1) Acute and chronic respiratory failure with hypoxia: Status: Chronic Code(s): J96.21 - Acute and chronic respiratory failure with hypoxia (2) Wheezing: Status: Acute Code(s): R06.2 - Wheezing (3) Cough: Status: Acute Code(s): R05.9 - Cough, unspecified Plan # Acute hypoxic respiratory failure due to post obstructive pneumonia from small cell lung cancer * on 8L of oxygen this morning. wears BIPAP during the night * on IV solumedrol; vancomycin and meropenem * also has positive Rhinovirus screen * breathing treatment with bronchodilators. * titrate oxyten to maintain sats >90% * vest therapy and mucolytics to help with braething * #Small cell lung cancer * oncology on board * diagnosied with extensive small cell lung cancer with malignant pleural effusion in February 2021 * treated ith chemotherapy and immunotherapy and subseqeuently placed on atelolizumab fo rmaintanenace treatment. 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 COlitis resolved and atelolizumab was resumed on #Abdominal pain * complaining of lower abdominal pain. * is passing gas, and denies any nausea or vomiting. Abdomen is soft to palpation * will give IV morphine prn for now. If pain persists, will get abdominal imaging in light of her history of immune mediated colitis to see if there is a recurrenceof this * #Hypertension: on HCTZ and carvedilol #Mild hyponatremia: sodium is 132. Likely due to decreased intake and diuretic usage. Na is 132 today. WIll monitor for now #Nicotine dependence: counseled to quit. Declined nicotine patch DVT prophylaxis: Lovenox 3:32pm CT of the abdomen/pelvis with IV/oral contrast done due to persistent abdominal pain showed a large acute left rectus sheath hematoma with active contrast extravasation and acute hemorrhage extends into the overlying subcutaneous soft tissues and into the lower abdomen and pelvis, obscuring the pelvic organs. Stat CBC showed Hb of 12.6, down from ~ 15 yesterday. Patient's BP had also dropped down to the 90s systolic transiently, and was 112/93 at time of review. Lovenox discontinued and stat type and cross ordered. I discussed this emergently with the surgeon on-call Dr. Mcmahan who recommended that patient be emergently transferred for interventional radiology evaluation due to active bleeding. Patient given a bolus of IV fluids normal saline 1 L. We will hold blood pressure medications. PT/INR ordered. [facility] called to initiate transfer. Patient accepted by Dr Srinivasa Lora- [facility] ICU money order clerk. Medications at Discharge Home Medications sertraline 100 mg tablet 100 mg PO DAILY DEPRESSION 07/02/17 bupropion HCl 300 mg 24 hr tablet, extended release 300 mg PO DAILY DEPRESSION 07/20/18 clopidogrel 75 mg tablet 75 mg PO DAILY BLOOD THINNER 08/18/18 simvastatin 20 mg tablet 20 mg PO QHS cholesterol 08/18/18 losartan 100 mg tablet 100 mg PO DAILY BLOOD PRESSURE 10/31/19 carvedilol 6.25 mg tablet 6.25 mg PO BID BLOOD PRESSURE 12/08/20 ondansetron HCl 4 mg tablet 8 mg PO Q8H PRN nausea and vomiting #20 tabs 03/12/21 lorazepam 0.5 mg tablet 0.5 mg PO Q6H PRN PRN Anxiety 03/17/21 hydrochlorothiazide 25 mg tablet 25 mg PO MOTUTHFRSA BLOOD PRESSURE 04/23/21 fluticasone fur. 200 mcg-umeclid 62.5 mcg-vilant 25 mcg inhalat.powder (Trelegy Ellipta) 1 inh inhalation DAILY #60 ea 11/19/21 loperamide 2 mg tablet (Imodium A-D) 2 mg PO Q6H PRN Diarrhea 11/19/21 isosorbide mononitrate 30 mg tablet,extended release 24 hr 30 mg PO DAILY CHEST PAIN 12/25/21 pantoprazole 20 mg tablet,delayed release (Protonix) 20 mg PO DAILY ACID REFLUX 12/25/21 Hospital Course Operations None Procedures None Summary of Care Provided Minutes Spent on Discharge: 45 Hospital Course: Patient is a 66 y/o female with a PMH as outlined who was admitted with a complaint of shortness of breath. She had been on atezolizumab for her lung cancer byt recently had severe colitis so the atezolizumab was discontinued and she was placed on high dose prednisone which was tapered off over a 3 month period. Her shortness of breath gradually worsened to the point where she was hypoxic and required 15L of oxygen when she came in to the ED. CT of the chest done showed progression of lung mass as well as pneumonitis and likely pneumonia. She was admitted and managed for postobstructive pneumonia in the setting of small cell lung cancer as well as acute hypoxic respiratory failure. She was started on broad-spectrum antibiotics. Pulmonology and oncology were consulted. She was placed on chest physiotherapy to help with mobilizing secretions. She also tested positive for rhinovirus which was thought to be contributing to the respiratory failure. Shortness of breath gradually improved but still remains on high flow oxygen. Hospital course was complicated by sudden onset lower abdominal pain which was persistent despite being given pain medication. CT of the abdomen and pelvis done due to history of colitis showed a large acute left rectus sheath hematoma with active contrast extravasation and acute hemorrhage extends into the overlying subcutaneous soft tissues and into the lower abdomen and pelvis, obscuring the pelvic organs. CBC done showed that her hemoglobin had dropped to around 12 from 15 the day before. This was discussed emergently with surgeon on-call who recommended emergent transfer. Patient was accepted at [facility] medical ICU under the care of Dr. Wise with general surgery to be consulted. She was transferred on 01/02/2022. Prior to her transfer, her CODE STATUS was clarified as patient had stated that she did not want to have CPR or intubation and was DNR CCA no intubation. However in light of the transfer, I spoke to patient again extensively about her CODE STATUS and patient was agreeable to being full code. CODE STATUS were therefore switched to full code. Total [id number] time spent was 17 mins. Patient was seen and examined prior to discharge. She complained of lower abdominal pain. Review of systems was otherwise negative. Labs and vitals reviewed. Home meds reviewed and reconciled. Physical Exam Const alert and oriented x3 Constitutional Narrative: in moderate distress due to pain; morbidly obese General Appearance: cooperative and comfortable Orientation / Consciousness: awake Exam Limitations: no limitations HEENT normocephalic, head/scalp atraumatic, hearing grossly normal bilaterally and moist oral mucous membranes Mouth: oral and palatal mucosa normal Eyes PERRL, EOMs intact bilaterally and conjunctivae normal Eyes Narrative: EOM grossly intact, anicteric Neck no lymphadenopathy and supple Resp Resp Narrative: mildly diminished breath sounds bibasally, no wheezes or crackles. On 8L of oxy gen by nasal canula Cardio regular rate, regular rhythm, S1 normal heart sound, S2 normal heart sound and no murmurs GI normal to inspection, nondistended, normoactive bowel sounds, soft to palpation, non-tender and non-distended GI Narrative: morbidly obese abdomen. Minimal tenderness on palpation, no guarding or rebound tenderness. Extremity normal to inspection, full ROM and no clubbing, cyanosis or edema Extremity Narrative: No edema appreciated Skin Skin Narrative: Thickened skin on bilateral lower extremities Neuro oriented x3, CN's II-XII intact bilaterally, moves all extremities and no focal motor deficits Neuro Narrative: No overt focal deficits appreciated Sensorium / Orientation: awake and alert Motor Exam: strength 5/5 throughout Psych affect normal Psych Narrative: Tearful Medical Records Data Medical Nutrition Assessment Dietitian: Malnutrition Criteria Met Start: 12/26/21 16:39 Freq: Status: Active Protocol: Document 12/29/21 11:22 RMA (Rec: 12/29/21 11:22 RMA [id number]) Nutrition Malnutrition Evidence of Malnutrition Exists Yes Malnutrition (severe): Chronic Evidenced By Suboptimal Energy Intake ( Severe),Weight Loss (Severe) Clinical Problem Chronic Disease or Condition Related Malnutrition Etiology Protein-calorie malnutrition in the context of chronic malignant disease related to increased energy expenditure and inadequate oral intake Signs/Symptoms as evidenced by <50% PO intake of estimated energy needs for >1 month and 5.6% weight loss in 1 month. Status Active Problem Recommendation Dietitian Recommendations/Changes Continue Regular diet to optimize oral intakes. Weight / BMI Weight Weight: 272 lb 14.916 oz Body Mass Index (BMI) 46.7 ABG / Lab / Microbiology Data Result Diagrams: 01/02/22 14:40 01/02/22 05:20 Laboratory: Laboratory Results - last 24 hr 01/02/22 05:20: Sodium 132 L, Potassium 4.5, Chloride 92 L, Carbon Dioxide 37.0 H, Anion Gap 3 L, BUN 23 H, Creatinine 0.75, Estim Creat Clear Calc 45.78, Est GFR (MDRD) Af Amer 99, Est GFR (MDRD) Non-Af 82, BUN/Creatinine Ratio 30.5 H, Glucose 143 H, Calcium 10.4 H, Total Bilirubin 0.30, AST 15, ALT 24, Alkaline Phosphatase 92, Total Protein 6.7, Albumin 2.8 L, Globulin 3.9, Albumin/Globulin Ratio 0.7 L 01/02/22 14:40: WBC 27.4 H, RBC 5.21, Hgb 12.5, Hct 41.1, MCV 78.9 L, MCH 24.0 L , MCHC 30.4 L, RDW Std Deviation 47.8 H, RDW Coeff of Melina 16.7 H, Plt Count 420, MPV 10.5, Immature Gran % (Auto) 2.800 H, Neut % (Auto) 88.0 H, Lymph % (Auto) 5.0 L, [place] % (Auto) 3.9, Eos % (Auto) 0.1, Baso % (Auto) 0.2, Absolute Neuts (auto) 24.1 H, Absolute Lymphs (auto) 1.37, Nucleated RBC % 0, Differential Comment SCANNED 01/02/22 15:22: PT 14.6, INR 1.2 Microbiology: Microbiology 12/26/21 14:35 Interface Orders Legionella Antigen - Final 12/26/21 14:35 Interface Orders Streptococcus pneumoniae Antigen (M - Final 12/25/21 16:35 Mucosa - Nasopharyngeal Respiratory Panel (PCR) - Final Rhinovirus 12/25/21 16:35 Mucosa - Nasopharyngeal Influenza Types A,B Direct FA (ROSEANNA) - Final Radiography Diagnostic Testing: Radiology Impression Abdomen/Pelvis CT 01/02/22 12:05 IMPRESSION: Large acute left rectus sheath hematoma with active contrast extravasation. Acute hemorrhage extends into the overlying subcutaneous soft tissues and into the lower abdomen and pelvis, obscuring the pelvic organs. Confluent right hilar and subcarinal mass, compatible with the history of lung cancer. Increased post obstructive pneumonia or pneumonitis in the right lung base with loculated pleural effusion. Indeterminate liver lesions again seen, possible metastases. Electronically Signed: Christin Simpson MD at 14:41 EST , ADDENDUM: 01/02/22 1452 IMPRESSION: Large acute left rectus sheath hematoma with active contrast extravasation. Acute hemorrhage extends into the overlying subcutaneous soft tissues and into the lower abdomen and pelvis, obscuring the pelvic organs. Confluent right hilar and subcarinal mass, compatible with the history of lung cancer. Increased post obstructive pneumonia or pneumonitis in the right lung base with loculated pleural effusion. Indeterminate liver lesions again seen, possible metastases. N.B. : The above Results were Read Back by Christin Simpson MD to Malena Yang RN, and understanding confirmed on 01/02/2022 14:46:00 (ET). Electronically Signed: Christin Simpson MD at 14:41 EST , Meaningful Use Info Meaningful Use Diagnoses (Choose all that apply): None applicable Discharge Plan Admission Admit Date/Time: 12/25/21 15:53 Primary Reason for Your Visit: acute hypoxic respiratory failure, rectus sheath hematoma Attending Provider: Olga Daniels Primary Care Provider: Manuel Mortensen Consulting Providers: Enriqueta Davis ; Nelson Ferreira ; Edgar Matt ; Antonio Llamas ; Chan Quintero ; Slade Russ ; Shimon Loya ; Arthur Lilly ; Teresa Issa NP ; Haley Robert ; Chino Kenny ; Santino Banda ; Horacio Uriarte ; Jimmy Jasmine ; Joann Ortiz [employer] INSTRUMENT TUNER ; Adam Saunders Discharge Orders/Prescriptions Prescriptions: No Action sertraline 100 mg tablet 100 mg PO DAILY hydrochlorothiazide 25 mg tablet 25 mg PO MOTUTHFRSA loperamide [Imodium A-D] 2 mg tablet 2 mg PO Q6H PRN (Reason: Diarrhea) Label Comments: taking 1-2 daily bupropion HCl 300 MG tablet extended release 24 hr 300 mg PO DAILY clopidogrel 75 MG tablet 75 mg PO DAILY simvastatin 20 MG tablet 20 mg PO QHS losartan 100 MG tablet 100 mg PO DAILY carvedilol 6.25 mg tablet 6.25 mg PO BID ondansetron HCl 4 mg tablet 8 mg PO Q8H PRN (Reason: nausea and vomiting) Qty: 20 0RF lorazepam 0.5 mg tablet 0.5 mg PO Q6H PRN PRN (Reason: Anxiety) Label Comments: TAKE 1 TABLET BY MOUTH EVERY 6 TO 8 HOURS NEEDED isosorbide mononitrate 30 mg tablet extended release 24 hr 30 mg PO DAILY pantoprazole [Protonix] 20 mg tablet,delayed release (DR/EC) 20 mg PO DAILY Trelegy Ellipta 200-62.5-25 mcg blister with device 1 inh inhalation DAILY Qty: 60 6RF Referrals / Follow Up: Manuel Mortensen [Primary Care Provider] - Disposition Disposition (needs filled in before D/C Order can be placed): Acute Care Hospital Charges/Coding Visit Charges Inpatient E&M: 97111 Disch Hosp
[2022-01-02] MEDS: 0.9% Normal Saline 1,000 ML 150 ML IV (16:30)
--- NOTE | 2022-01-02 17:10 | NURSING ---
Called [facility] and spoke to Olaf on MICU ([phone]). Daphne RN who will be getting this patient was unavailable and will call this RN when she is able.
--- NOTE | 2022-01-02 17:26 | NURSING ---
Report given to STEFFANY Serna at [facility].
== END 2022-01-02 17:03 | disposition short-term general hospital (02) | DRG 193 ==
LOC: ED 15:17 → PCU 16:02
PROVIDERS: Internal Medicine; Admitting Provider Internal Medicine; Emergency Provider Student in an Organized Health Care Education/Training Program; Visit Provider Student in an Organized Health Care Education/Training Program
DX: J18.8 Other pneumonia, unspecified organism (principal); J96.21 Acute and chronic respiratory failure with hypoxia; E43 Unspecified severe protein-calorie malnutrition; J44.0 Chronic obstructive pulmonary disease with (acute) lower respiratory infection; E87.1 Hypo-osmolality and hyponatremia; C34.81 Malignant neoplasm of overlapping sites of right bronchus and lung; C78.7 Secondary malignant neoplasm of liver and intrahepatic bile duct; Z68.42 Body mass index [BMI] 45.0-49.9, adult; J91.0 Malignant pleural effusion; E86.9 Volume depletion, unspecified; E11.9 Type 2 diabetes mellitus without complications; E66.01 Morbid (severe) obesity due to excess calories; E78.00 Pure hypercholesterolemia, unspecified; I10 Essential (primary) hypertension; I44.0 Atrioventricular block, first degree; E87.6 Hypokalemia; I25.10 Atherosclerotic heart disease of native coronary artery without angina pectoris; F17.210 Nicotine dependence, cigarettes, uncomplicated; M79.81 Nontraumatic hematoma of soft tissue; K76.9 Liver disease, unspecified; Z82.3 Family history of stroke; Z79.2 Long term (current) use of antibiotics; F41.1 Generalized anxiety disorder; Z79.02 Long term (current) use of antithrombotics/antiplatelets; Z92.21 Personal history of antineoplastic chemotherapy; Z66 Do not resuscitate; B34.8 Other viral infections of unspecified site; R10.9 Unspecified abdominal pain
CPT/HCPCS: 36415; 36591; 71045; 71275; 74177; 80048; 80053; 83735; 83880; 84443; 84484; 85025; 85610; 86850; 86900; 86901; 87449; 87633; 87635; 87641; 87804; 93005; 94003; 94640; 94660; 94667; 94668; 94762; 97110; 97162; 97166; 97530; 97802; 99251; 99285; 99406; J2185; J7030; J7040; Q9967; A4216; G0463; U0003; U0005